=== PATIENT | male | born 1965 | race Caucasian/White ===

== ENCOUNTER → 2017-07-01 12:20 | Outpatient (CLI) | payer MEDICARE, MEDICAID, SELFPAY ==
[2017-07-01 13:40] VITALS: PULSE 72; PULSE 86; PULSE 87; PULSE 90; PULSE 91; PULSE 92; PULSE 93; O2SAT 86; O2SAT 87; O2SAT 88; O2SAT 89; O2SAT 91; O2SAT 92
--- NOTE | 2017-07-01 14:02 | CPS ---
PATIENT ARRIVED FOR 6MIN WALK TEST ON ROOM AIR. (HAS O2 SET UP AT HOME BY ROSA SMITH OUT OF [place]) SAYS HE HAS TROUBLE MANAGING TANKS AND WOULD LIKE SOMETHING SMALLER IF HE STILL QUALIFIES. HE ADMITS USE AT HOME. SPO2 ON RA PRIOR TO BEGINNING TEST WAS 88%. PLACED ON 1LPM TO BEGIN WALK. SUBSEQUENTLY INCREASED TO 4LPM TO MAINTAIN SPO2 >88% THROUGHOUT TESTING. HE WALKED WITH A CANE AND DID NOT REQUIRE ANY REST BREAKS. DYSPNEA RETURNED TO HIS BASELINE PRIOR TO DC.
--- NOTE | 2017-07-02 06:51 | WT_ITS ---
PSN 6 Minute Walk Test - 6 Minute Walk Test 6 Minute Walk Test: 6 Minute Walk Test PSN:6-Minute Walk Test Start: 07/01/17 13: 40 Freq: Status: Active Protocol: RESP.6MINW Document 07/01/17 13:40 [facility] (Rec: 07/01/17 14:08 [facility] [id number]) 6 Minute Walk Test Date Performed 07/01/17 Time Performed 12:30 Height 6 ft Weight: 93.44 kg Weight in Pounds 206.[address]: Mark Marlow Assistive device used: Cane Pre-test Oxygen Delivery Method Room Air Pulse Ox (%) 88 Pulse Rate (60-100 beats/min) 87 Dyspnea Radha Scale (0-10) 3 Reported Symptoms Increased Work of Breathing 1st minute Oxygen Flow Rate (L/min) (L/min) 1 Oxygen Delivery Method Nasal Cannula Pulse Ox (%) 91 Pulse Rate (60-100 beats/min) 86 Dyspnea Radha Scale (0-10) 3 Reported Symptoms Increased Work of Breathing 2nd minute Oxygen Flow Rate (L/min) (L/min) 1 Oxygen Delivery Method Nasal Cannula Pulse Ox (%) 87 Pulse Rate (60-100 beats/min) 90 Dyspnea Radha Scale (0-10) 4 Reported Symptoms Increased Work of Breathing 3rd minute Oxygen Flow Rate (L/min) (L/min) 2 Oxygen Delivery Method Nasal Cannula Pulse Ox (%) 88 Pulse Rate (60-100 beats/min) 91 Dyspnea Radha Scale (0-10) 4 Reported Symptoms Increased Work of Breathing 4th minute Oxygen Flow Rate (L/min) (L/min) 3 Pulse Ox (%) 89 Pulse Rate (60-100 beats/min) 92 Dyspnea Radha Scale (0-10) 4 Reported Symptoms Increased Work of Breathing 5th minute Oxygen Flow Rate (L/min) (L/min) 3 Oxygen Delivery Method Nasal Cannula Pulse Ox (%) 86 Pulse Rate (60-100 beats/min) 93 Dyspnea Radha Scale (0-10) 4 Reported Symptoms Increased Work of Breathing 6th minute Oxygen Flow Rate (L/min) (L/min) 4 Oxygen Delivery Method Nasal Cannula Pulse Ox (%) 89 Pulse Rate (60-100 beats/min) 93 Dyspnea Radha Scale (0-10) 4 Reported Symptoms Increased Work of Breathing Post-test Oxygen Delivery Method Room Air Pulse Ox (%) 92 Pulse Rate (60-100 beats/min) 72 Dyspnea Radha Scale (0-10) 3 Full Laps Walked 4 Partial Lap, Number of Tiles Walked 10 Total Distance Walked (ft) 246 07/01/17 14:02 Cardiopulmonary Services by Afia Morales PATIENT ARRIVED FOR 6MIN WALK TEST ON ROOM AIR. (HAS O2 SET UP AT HOME BY [facility]A SMITH OUT OF [place]) SAYS HE HAS TROUBLE MANAGING TANKS AND WOULD LIKE SOMETHING SMALLER IF HE STILL QUALIFIES. HE ADMITS USE AT HOME. SPO2 ON RA PRIOR TO BEGINNING TEST WAS 88%. PLACED ON 1LPM TO BEGIN WALK. SUBSEQUENTLY INCREASED TO 4LPM TO MAINTAIN SPO2 > 88% THROUGHOUT TESTING. HE WALKED WITH A CANE AND DID NOT REQUIRE ANY REST BREAKS. DYSPNEA RETURNED TO HIS BASELINE PRIOR TO DC. Initialized on 07/01/17 14:02 - END OF NOTE - Interpretation Interpretation: The patient was noted to be 88% on room air. The patient was then placed on 2 L nasal cannula with improvement. The patient then was ambulated for 6 minutes and required a total of 4 L/min to maintain appropriate saturations. Patient was able to travel only 246 feet over the course of 6 minutes despite taking no breaks. These findings are consistent with a respiratory limitation exercise tolerance. - Recommendations Recommendations: The patient should be on 2 L nasal cannula at rest, but increased to 4 L/min with any exertion.
== END ==
PROVIDERS: Family Provider Family Medicine; PCP Family Medicine; Visit Provider Internal Medicine Critical Care Medicine
DX: J96.11 Chronic respiratory failure with hypoxia (principal); J98.4 Other disorders of lung
CPT/HCPCS: 94618

== ENCOUNTER → 2017-07-03 12:49 | Outpatient (CLI) | payer MEDICARE, MEDICAID, SELFPAY ==
--- NOTE | 2017-07-04 07:04 | PFTCOMP ---
COMPLETE PULMONARY FUNCTION TEST INTERPRETATION Brief HPI: Patient is a 51 year old male, currently under the care of Dr. Marlow, who presents to [facility] for complete pulmonary function tests secondary to diagnosis of COPD. Respiratory therapist reports good effort and reproducible results. Interpretation: Forced expiration spirometry shows a very severe large airways obstructive ventilatory defect with an FEV1 of 20% predicted. There is no significant bronchodilator response by ATS criteria. Spirograms are of good quality and plateau slowly, indicating slowly emptying areas of the lungs. The respiratory flow volume loop shows decreased expiratory flow rates at all lung volumes consistent with airway obstruction. Lung volumes by body plethysmography show an elevated total lung capacity at 7.85 L, 116% predicted. FRC and RV are elevated out of proportion. Lung volume measurements are consistent with hyperinflation and air-trapping. Diffusion capacity by carbon monoxide is decreased at 27% predicted. The airway resistance is elevated. Compared to previous pulmonary function tests from 06/12/2016, there has been a significant improvement in lung volumes, FVC and DLCO. Impression: Irreversible very severe large airways obstructive ventilatory defect with a symmetric reduction diffusing capacity, resulting in air trapping with hyperinflation. Restriction has resolved compared to previous study.
== END ==
PROVIDERS: Family Provider Family Medicine; PCP Family Medicine; Visit Provider Internal Medicine Critical Care Medicine
DX: J96.11 Chronic respiratory failure with hypoxia (principal); J98.4 Other disorders of lung
CPT/HCPCS: 94060; 94726; 94729

== ENCOUNTER → 2018-10-27 | Outpatient (CLI) | payer MEDICARE, MEDICAID, SELFPAY ==
[2018-04-30 13:23] VITALS: BMI 27.8
--- NOTE | 2018-10-28 09:46 | PFT ---
INTRODUCTION: The patient is a 53-year-old male that presents for pulmonary function studies secondary to a diagnosis of COPD. Respiratory therapy reports good patient effort. Bronchodilators were used during testing. INTERPRETATION: Forced expiration spirometry demonstrates the presence of a very severe large airways obstructive ventilatory defect with an FEV1 of 17% of predicted. There was a significant response to aerosolized bronchodilators. Spirograms do not plateau indicating slow emptying of the lungs. Body plethysmography was performed and reveals a decrease TLC to 5.94 L, 82% of predicted, indicative of a mild restrictive ventilatory impairment. RV was elevated to 146% of predicted, indicative of underlying air trapping. Diffusing capacity by single breath CO is severely reduced at 30% of predicted. When compared to pulmonary function studies dated June 2017, there has been a 14% reduction in FEV1. IMPRESSION: Partially reversible very severe mixed ventilatory defect with associated air trapping and symmetric reduction in diffusing capacity. There has been worsening in the patient's FEV1 since 2018 as noted above.
== END | disposition home or self-care (01) ==
LOC: PSN 12:58
PROVIDERS: Family Provider Family Medicine; PCP Family Medicine; Referring Provider Nurse Practitioner Acute Care; Visit Provider Nurse Practitioner Acute Care
DX: J44.9 Chronic obstructive pulmonary disease, unspecified (principal)
CPT/HCPCS: 94060; 94726; 94729

== ENCOUNTER → 2018-10-28 | Outpatient (CLI) | payer MEDICARE, MEDICAID, SELFPAY ==
[2018-04-30 13:23] VITALS: BMI 27.8
[2018-10-28 12:35] VITALS: PULSE 64; PULSE 66; PULSE 74; PULSE 78; PULSE 79; PULSE 82; PULSE 86; PULSE 87; O2SAT 86; O2SAT 89; O2SAT 91; O2SAT 92; O2SAT 94; O2SAT 95; O2SAT 96; O2SAT 98
--- NOTE | 2018-10-28 12:35 | CPS ---
Per mill recorder pt wears 3l continuous flow at home. He arrived on 3L pulse dose and SPO2 was 91%. Pt placed on room air prior to start of walk test SPO2 was 94%. At 2 minute check pt with low SPO2 of 86%, pt placed on 3L continuous flow and recovered well to 93 %. Walk continued on 3L continuous flow.
--- NOTE | 2018-10-29 09:41 | PCM.PSN.6M ---
PSN 6 Minute Walk Test - 6 Minute Walk Test 6 Minute Walk Test: 6 Minute Walk Test PSN:6-Minute Walk Test Start: 10/28/18 13:06 Freq: Status: Active Protocol: RESP.6MINW Document 10/28/18 12:35 [facility] (Rec: 10/28/18 13:12 [facility] [id number]) 6 Minute Walk Test Date Performed 10/28/18 Time Performed 12:35 Height 6 ft Weight: 205 lb Weight in Pounds 205.[address]: Yenny Tom Assistive device used: Cane Pre-test Oxygen Delivery Method Room Air Pulse Ox (%) 94 Pulse Rate (60-100 beats/min) 64 Dyspnea Radha Scale (0-10) 2 Exertion Radha Scale (6-20) 0 1st minute Oxygen Delivery Method Room Air Pulse Ox (%) 89 Pulse Rate (60-100 beats/min) 78 Number of Rests Taken 0 2nd minute Oxygen Delivery Method Room Air Pulse Ox (%) 86 Pulse Rate (60-100 beats/min) 74 Number of Rests Taken 0 Reported Symptoms Increased Work of Breathing 3rd minute Oxygen Flow Rate (L/min) (L/min) 3 Oxygen Delivery Method Nasal Cannula Pulse Ox (%) 98 Pulse Rate (60-100 beats/min) 82 Number of Rests Taken 1 4th minute Oxygen Flow Rate (L/min) (L/min) 3 Oxygen Delivery Method Nasal Cannula Pulse Ox (%) 95 Pulse Rate (60-100 beats/min) 87 Number of Rests Taken 1 5th minute Oxygen Flow Rate (L/min) (L/min) 3 Oxygen Delivery Method Nasal Cannula Pulse Ox (%) 92 Pulse Rate (60-100 beats/min) 79 Number of Rests Taken 1 6th minute Oxygen Flow Rate (L/min) (L/min) 3 Oxygen Delivery Method Nasal Cannula Pulse Ox (%) 91 Pulse Rate (60-100 beats/min) 86 Number of Rests Taken 0 Post-test Oxygen Flow Rate (L/min) (L/min) 3 Oxygen Delivery Method Nasal Cannula Pulse Ox (%) 96 Pulse Rate (60-100 beats/min) 66 Dyspnea Radha Scale (0-10) 3 Exertion Radha Scale (6-20) 13 Full Laps Walked 6 Partial Lap, Number of Tiles Walked 30 Total Distance Walked (ft) 384 10/28/18 12:35 (created 10/28/18 13:10) Cardiopulmonary Services by Maria A Morales Per quill collector pt wears 3l continuous flow at home. He arrived on 3L pulse dose and SPO2 was 91%. Pt placed on room air prior to start of walk test SPO2 was 94%. At 2 minute check pt with low SPO2 of 86%, pt placed on 3L continuous flow and recovered well to 93 %. Walk continued on 3L continuous flow. Initialized on 10/28/18 13:10 - END OF NOTE - Interpretation Interpretation: The patient ambulated 384 feet over the course of 6 minutes beginning on room air with the use of a cane. Pretesting oxygen saturation was noted to be 94% on room air. With ambulation, the leobardo oxygen saturation was 86% at minute 2 of testing. 3 L/min of continuous flow supplemental oxygen was applied and the patient was able to complete the remainder of the test while maintaining oxygen saturations within the appropriate range. This testing indicated the presence of impaired walk distance along with significant exertional oxygen desaturation. - Recommendations Recommendations: 3 L/min of continuous flow supplemental oxygen should be utilized with exertion.
== END | disposition home or self-care (01) ==
LOC: PSN 12:22
PROVIDERS: Family Provider Family Medicine; PCP Family Medicine; Referring Provider Nurse Practitioner Acute Care; Visit Provider Nurse Practitioner Acute Care
DX: J44.9 Chronic obstructive pulmonary disease, unspecified (principal)
CPT/HCPCS: 94618

== ENCOUNTER → 2019-12-06 13:21 | Outpatient (CLI) | payer MEDICARE, MEDICAID, SELFPAY ==
[2018-11-03 14:06] VITALS: BMI 29.0
[2019-12-06 15:05] LABS: Absolute Lymphocyte Count 0.49 X10^3/uL (0.83-4.51); Absolute Neutrophil Count 3.3 X10^3/uL (2.0-7.7); Basophil# 0.03 X10^3/uL; Basophil% 0.6 % (0-1); Eosinophils% 6.5 % (0-5); Hematocrit 43.1 % (40-54); Lymphocyte # 0.49 X10^3/ul (4.0); Lymphocyte % 10.5 % (19-41); Mean Corp Hgb Conc 30.2 g/dL (32-36); Mean Corpuscular Hgb 30.8 pg (27.0-32.0); Mean Corpuscular Volume 102.1 fL (80-94); Mean Platelet Vol. 12.1 fl (6.2-12.0); Monocyte# 0.51 X10^3/uL; NRBC Flagged by Analyzer 0 % (0-5); POSITIVE DIFFERENTIAL YES; Platelet Count 107 K/mm3 (150-450); RBC Distribution Width CV 14.3 % (11.6-14.6); RBC Distribution Width SD 54.1 fl (35.1-43.9); Red Blood Count 4.22 M/mm3 (4.6-6.2); White Blood Count 4.7 K/mm3 (4.4-11.0)
[2019-12-06 15:23] LABS: ALB/GLOB Ratio 0.8 RATIO (0.9-2.4); AST(SGOT) 23 U/L (15-37); Alanine Aminotransfer ALT/SGPT 26 U/L (16-61); Albumin, Serum 3.4 g/dL (3.2-5.0); Alkaline Phosphatase 232 U/L (45-117); Anion Gap 5 (5-15); BUN 20 mg/dL (7-18); BUN/Creat Ratio 19.2 RATIO (10-20); Calcium,Total 8.3 mg/dL (8.5-10.1); Chloride 105 mmol/L (98-107); Cholesterol 224 mg/dL (200); Creatinine, Serum 1.04 mg/dL (0.70-1.30); EST Glomerular Filtration Rate 79 mL/min (>60); Est Glom Filt Rate - Afr Amer 95 mL/min (>60); Glucose 126 mg/dL (74-106); High Density Lipoprotein 54 mg/dL; Potassium 3.6 mmol/L (3.5-5.1); Protein, Total 7.4 g/dL (6.4-8.2); Sodium Level 141 mmol/L (136-145); Triglycerides 113 mg/dL; Very Low Density Lipoprotein 23 mg/dL (5-40)
[2019-12-06 15:53] LABS: Phenytoin (Dilantin) Level 14.2 mL (10.0-20.0)
[2019-12-06 16:04] LABS: Differential Indicated SCAN CRITERIA MET
[2019-12-06 16:48] LABS: Anisocytosis 1+; Macrocytosis 1+; Platelet Estimate ADEQUATE (ADEQ); Red Cell Morphology N CHROM NORMAL (NORM C&C)
== END ==
PROVIDERS: PCP Family Medicine; Visit Provider Family Medicine
DX: Z00.00 Encounter for general adult medical examination without abnormal findings (principal); I10 Essential (primary) hypertension; G40.909 Epilepsy, unspecified, not intractable, without status epilepticus; Z51.81 Encounter for therapeutic drug level monitoring; Z12.5 Encounter for screening for malignant neoplasm of prostate
CPT/HCPCS: 36415; 80053; 80061; 80185; 84153; 85025; G0103

== ENCOUNTER 2019-12-13 04:53 | Inpatient (IN) | payer MEDICARE, MEDICAID, SELFPAY ==
[2018-11-03 14:06] VITALS: BMI 29.0
[2019-12-13] VITALS (62 sets, daily range): BP systolic 73–156; BP diastolic 46–99; PULSE 81–194; RESP 14–26; TEMP 36.4–37.2; O2SAT 92–100; BMI 26.9
[2019-12-13] MEDS: Adenosine 6 MG/2 ML Syringe IV (03:59)
[2019-12-13] MEDS: Adenosine 6 MG/2 ML Syringe 12 MG IV (04:01)
[2019-12-13] MEDS: dilTIAZem 25 MG/5 ML Vial 20 MG IV BOLUS ×2 (04:26→05:22)
--- NOTE | 2019-12-13 04:48 | ECHOD_ITS ---
Reason For Study: CHF Procedure This was a 2D Doppler, Color Flow transthoracic echocardiogram. The study was technically difficult. Exam performed portable in ICU/CCU. Left Ventricle Normal LV size. Segmental dysfunction with preserved ejection fraction (see wall motion). The estimated ejection fraction is 65 %. Post operative septal motion. Diastolic function is indeterminate. Mid-inferoseptal : Hypokinetic. Mid-anteroseptal : Hypokinetic. Right Ventricle Normal RV size. Normal systolic function. Atria Normal left atrium. Normal right atrium. No doppler evidence for ASD. Mitral Valve There is no mitral annular calcification. Normal mitral valve. Trivial mitral valve insufficiency. Tricuspid Valve Normal tricuspid valve. Trivial tricuspid valve insufficiency. Right ventricular systolic pressure estimated to be 51 mmHg. Aortic Valve The aortic valve apparatus is not well visualized, however, based upon the 2D echocardiographic images obtained there appears to be a stable appearing mechanical aortic valve prosthesis. Mild aortic stenosis. Pulmonic Valve The pulmonic valve is not well visualized. Great Vessels Normal sized aortic root. Pericardium/Pleural No pericardial effusion. MMode/2D Measurements & Calculations LVIDd: 4.9 cm IVSd: 1.1 cm LVOT diam: 2.1 cm LVIDs: 4.4 cm LVPWd: 1.0 cm LVOT area: 3.3 cm2 RVDd: 3.1 cm FS: 10.9 % Ao root diam: 3.3 cm LAV(MOD-bp): 37.4 ml LA A4 area: 14.4 cm2 LAV(MOD-bp) Indexed: 17.6 ml/m2 LAV(MOD-sp2): 31.2 ml LAV(MOD-sp4): 33.7 ml LA dimension(2D): 3.9 cm Time Measurements MV dec time: 0.13 sec Doppler Measurements & Calculations MV E max emmanuel: 65.1 cm/sec Lat Peak E' Emmanuel: 9.7 cm/sec Med Peak E' Emmanuel: 5.4 cm/sec MV A max emmanuel: 52.2 cm/sec E/E' lat: 6.7 E/E' med: 12.0 MV E/A: 1.2 Ao V2 max: 216.6 cm/sec LV V1 max: 121.6 cm/sec SV(LVOT): 53.8 ml Ao max P.8 mmHg LV V1 max P.9 mmHg Ao V2 mean: 156.4 cm/sec LV V1 mean P.4 mmHg Ao mean P.7 mmHg LV V1 mean: 89.0 cm/sec Ao V2 VTI: 29.6 cm LV V1 VTI: 16.1 cm DAREN(I,D): 1.8 cm2 DAREN(V,D): 1.9 cm2 PA V2 max: 124.0 cm/sec TR max emmanuel: 299.3 cm/sec TR max P.1 mmHg Interpretation Summary The study was technically difficult. Segmental dysfunction with preserved ejection fraction (see wall motion). The estimated ejection fraction is 65 %. Post operative septal motion. Trivial mitral valve insufficiency. Trivial tricuspid valve insufficiency. The aortic valve apparatus is not well visualized, however, based upon the 2D echocardiographic images obtained there appears to be a stable appearing mechanical aortic valve prosthesis. Mild aortic stenosis. Right ventricular systolic pressure estimated to be 51 mmHg. Diastolic function is indeterminate. Comment: Based upon the 2D echocardiographic and color-flow Doppler evidence there is no obvious findings compatible with an ongoing ventricular septal defect. Ordering Physician: Kevin Ziegler Referring Physician: ANTIONETTE GERARD Performed By: Maryam Chand, BRY, RVT
--- NOTE | 2019-12-13 04:48 | RAD_ITS ---
STUDY: X-RAY CHEST REASON FOR EXAM: Male, 54 years old. ET and amp;amp;amp; OG TUBE PLACEMENTS -- LINE PLACEMENT TECHNIQUE: Single AP portable view of the chest. COMPARISON: 04/06/2016. 11/22/2015. FINDINGS: Right internal jugular catheter with catheter tip over the mid superior vena cava in good position. The enteric tube courses inferior to the left diaphragm, its tip is not included or visualized. There are superimposed monitor leads. Endotracheal tube tip approximately 0.5 cm superior to the vic. There is hyperinflation of the lungs consistent with chronic obstructive lung disease (COPD). Emphysematous changes, distortion of parenchyma, interstitial pattern, areas of hyperinflation in the right mid and lower lung parenchyma left perihilar parenchyma slightly progressed. There is no demonstrated pneumothorax. Sternal cerclage wires are present from a prior sternotomy. Normal mediastinum and joselito. Normal visualized pulmonary arteries. Normal visualized aortic arch and descending thoracic aorta. Normal visualized thoracic spine. Normal visualized ribs, clavicles, and shoulders. There is no demonstrated abnormality of the visualized soft tissue structures of the upper abdomen. RAD/Chest 1 View (Portable) IMPRESSION: emphysema, large bulla formation, chronic interstitial lung disease, scarring as above. Lines appear in good position. Electronically Signed: Pita Anderson MD at 5:50 EDT , Service support ,
--- NOTE | 2019-12-13 05:21 | EKG12_ITS ---
Test Reason : AM EKG Blood Pressure : / mmHG Vent. Rate : 085 BPM Atrial Rate : 085 BPM P-R Int : 144 ms QRS Dur : 154 ms QT Int : 522 ms P-R-T Axes : 000 -57 067 degrees QTc Int : 621 ms Normal sinus rhythm Right bundle branch block Left anterior fascicular block Bifascicular block Abnormal ECG When compared with ECG of 13-DEC-2019 08:05, MANUAL COMPARISON REQUIRED, DATA IS UNCONFIRMED Confirmed by ESTEPHANIE HEARD, RODRIGO ([id number]), editorial manager JAIDEN KANG ([id number]) on 12/14/2019 11:32:07 AM Referred By: Kevin Ziegler Confirmed By:JUAN HUMMEL MD
--- NOTE | 2019-12-13 05:25 | HP.PCM_ITS ---
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 (6) H/O aortic valve replacement Status: Resolved Comment: aortic root disease 2001 [facility] (7) S/P VSD repair Status: Resolved Comment: [facility] 1996 (8) DVT (deep venous thrombosis) Status: Chronic (9) avr and aortic homograft closure Status: Resolved Comment: 12/06/12 Anel Correia (10) H/O hernia repair Status: Resolved Comment: 09/22/2006 (11) Learning disability Status: Chronic (12) varicose veins Status: Acute (13) Hyperlipidemia Status: Chronic (14) HTN (hypertension) Status: Chronic (15) Aortic valve disease Status: Chronic (16) Ventricular septal defect Status: Chronic (17) Seizure disorder Status: Chronic (18) GERD (gastroesophageal reflux disease) Status: Chronic (19) COPD (chronic obstructive pulmonary disease) Status: Chronic (20) History of Coumadin therapy Status: Acute (21) Iatrogenic pneumothorax Status: Acute (22) Aortic valve replaced Status: Resolved (23) Mood disorder Status: Chronic (24) Obesity Status: Chronic (25) Alkaline phosphatase elevation Status: Acute (26) Cholelithiasis Status: Acute (27) Bilateral leg edema Status: Acute (28) Eczema of hand Status: Acute (29) Hypoxemic respiratory failure, chronic Status: Chronic (30) Hypersomnia Status: Acute (31) Shortness of breath Status: Acute (32) COPD exacerbation Status: Acute History of Present Illness Date of Admission: 12/13/19 Chief Complaint: shortness of breath The patient is a 54 year old M presented to the [facility] ED. he was noted to be hypoxic 88% on room air. They attempted nonrebreather and he did not seem to be improving and then tried BiPAP which she did not tolerate then ointment put him back onto the nonrebreather. They contacted [facility] for admission and stated that they were likely going to intubate him as he was not tolerating the nonrebreather. They decided to intubate but they spoke to me beforehand for transfer. I agreed to transfer but asked them to call me back afterwards. They tell me that they gave the patient etomidate and some lorazepam and were looking to transfer the patient. I was concerned about the patient not being sedated in route with just the bolus of etomidate and lorazepam and recommended stabilization with something such as propofol prior to transfer. I informed them that that would likely drop his blood pressure and that that would need to be stabilized prior to the patient being sent over. Did not receive a phone call back but once patient arrived to the floor a CODE BLUE was called. Concern was for ventricular tachycardia and patient did receive 100 J of defibrillation which did not have any effect. I ordered an EKG which looke d more like SVT though the EKG read sinus tachycardia. Patient then received adenosine for 6 and 12. Patient did have positive with a 12 mg but only to continue with the tachycardia. It was then ordered that the patient received diltiazem bolus and drip. Patient then received 20 mg of diltiazem bolus and then continuous infusion afterwards. [] Past Medical History Past Medical History (Chronic Problems): Chronic Problems (Last Reviewed 05/03/19 @ 13:41 by Merlyn Salazar) Stage 4 very severe COPD by GOLD classification (Chronic) FEV1 19% of predicted Chronic hypoxemic respiratory failure (Chronic) requires 3 LPM Hypersomnia (Chronic) Mixed obstructive and restrictive ventilatory defect (Chronic) DVT (deep venous thrombosis) (Chronic) Learning disability (Chronic) Hyperlipidemia (Chronic) HTN (hypertension) (Chronic) Aortic valve disease (Chronic) Ventricular septal defect (Chronic) Seizure disorder (Chronic) GERD (gastroesophageal reflux disease) (Chronic) COPD (chronic obstructive pulmonary disease) (Chronic) Mood disorder (Chronic) Obesity (Chronic) Hypoxemic respiratory failure, chronic (Chronic) Medical History: Medical History (Last Reviewed 12/13/19 @ 05:[address] Kevin Ziegler, DO) Chronic hypoxemic respiratory failure (Chronic) J96.11 requires 3 LPM Hypersomnia (Chronic) G47.10 Mixed obstructive and restrictive ventilatory defect (Chronic) DVT (deep venous thrombosis) (Chronic) I82.409 Learning disability (Chronic) F81.9 varicose veins (Acute) Hyperlipidemia (Chronic) E78.5 HTN (hypertension) (Chronic) I10 Aortic valve disease (Chronic) I35.9 Ventricular septal defect (Chronic) Q21.0 Seizure disorder (Chronic) G40.909 GERD (gastroesophageal reflux disease) (Chronic) K21.9 COPD (chronic obstructive pulmonary disease) (Chronic) J44.9 History of Coumadin therapy (Acute) Z92.29 Iatrogenic pneumothorax (Acute) J95.811 Mood disorder (Chronic) F39 Obesity (Chronic) E66.9 Alkaline phosphatase elevation (Acute) R74.8 Cholelithiasis (Acute) K80.20 Bilateral leg edema (Acute) R60.0 Eczema of hand (Acute) L30.9 Hypoxemic respiratory failure, chronic (Chronic) J96.11 Hypersomnia (Acute) G47.10 Shortness of breath (Acute) R06.02 Allergies No Known Allergies Allergy (Verified 11/03/18 13:19) Home Medications: Ambulatory Orders Medication Instructions Recorded Albuterol Aerosols [Ventolin 2.5 mg INHALATION Q4H PRN PRN 04/05/16 Aerosols] Albuterol Inhaler [Ventolin Hfa] 2 puff INHALATION Q4H PRN PRN 04/05/16 Oxygen, Home [Home Oxygen] 2 - 4 lpm NASAL DAILY 04/05/16 Phenytoin Na [Dilantin] 100 mg PO BID 04/05/16 Phenytoin Sodium Extended 200 mg PO QHS 04/06/16 [Dilantin] Potassium Chloride [Klor-Con M20] 20 meq PO BID 04/06/16 Furosemide [Lasix] 40 mg PO BIDLX #60 tab 04/07/16 Ipratropium/Albuterol Sulfate 3 ml INHALATION Q6H.RT #120 04/07/16 [Duoneb] ampul.neb Nystatin Powder [Mycostatin Powder] 1 applic TOPICAL BID #30 gm 04/07/16 Warfarin [Coumadin] 4 mg PO DAILY@1700 tab 04/07/16 aspirin 81 mg tablet,delayed 81 mg PO QDAY 03/17/17 release metoprolol tartrate 25 mg tablet 37.5 mg PO QDAY tab 03/17/17 multivitamin 1 tab PO QDAY 03/17/17 fluticasone fur. 100 mcg-umeclid 1 inh INHALATION DAILY #1 ea 11/15/19 62.5 mcg-vilant 25 mcg inhalat.powder Surgical History: Surgical History (Last Reviewed 12/13/19 @ 05:[address] Kevin Ziegler DO) H/O aortic valve replacement (Resolved) Z95.2 [facility] (Resolved) Z98.890, Z87.74 [facility] 1996 avr and aortic homograft closure (Resolved) 12/06/12 Anel Correia H/O hernia repair (Resolved) Z98.890, Z87.19 09/22/2006 Aortic valve replaced (Resolved) Z95.2 Surgical History: - - Mitral valve replacement ?2 Psychiatric History: No pertinent psych hx Smoking Status: Former smoker - *Family History Maternal Family History: Family History (Last Reviewed 12/13/19 @ 05:[address] Kevin Ziegler DO) Father Lung cancer Osteoarthritis Mother Diabetes Thyroid disorder High cholesterol Breast cancer Grandmother Heart disease CVA (cerebral vascular accident) History Items: Unknown Paternal Family History: Family History (Last Reviewed 12/13/19 @ 05:[address] Kevin Ziegler DO) Father Lung cancer Osteoarthritis Mother Diabetes Thyroid disorder High cholesterol Breast cancer Grandmother Heart disease CVA (cerebral vascular accident) History Items: Unknown Review of Systems Unable to obtain accurate/complete ROS d/t: Intubated and sedated VTE Information - Inpt Only VTE Present on Admission: No VTE Mechan Device Prophylaxis: None VTE Pharm Prophylaxis ordered?: No Reason prophylaxis not ordered:: Treatment Not Indicated - Physical Exam Vitals/I&O's: Vital Signs Pulse Resp Pulse Ox 162 H 19 H 100 12/13/19 05:00 12/13/19 05:00 12/13/19 05:00 Weight: 89.9 kg Body Mass Index (BMI) 26.9 General: - - Intubated and sedated. Disheveled and unkempt HEENT: Atraumatic, Normocephalic Neck: No Nodes, Thyroid Normal Size and Texture Lungs: Diminished, - - Hoarse breath sounds bilaterally Cardiovascular: Tachycardic, - - 3 out of 6 systolic murmur loudest at the apex Abdomen: Bowel Sounds Present, Soft, Non Tender, Non-Distended Extremities: No Calf Tenderness Skin: No rashes, No breakdown Musculoskeletal: No Tenderness to Palpation of Joints or Extremities, No Muscle Wasting Neurological: Deep Tendon Reflexes 2+/4 and Symmetrical, - - No clonus Chest x-ray personally reviewed and shows more chronic changes has not scaling change from April 2016 EKG reviewed and showed SVT Labs: BMP: Sodium 139, potassium 4.5, creatinine 0.99. CBC: White count 7.1, hemoglobin 15, platelets 129. BNP was 1491. Troponin was 0.033. Current Medications Acetaminophen (Acetaminophen 650 Mg Suppository) 650 mg RECTAL Q4H PRN PRN PRN Reason: Pain Score 1-10/Temp > 100.7 F Albuterol Sulfate (Albuterol 2.5 Mg/3 Ml Vial.Neb.) 2.5 mg INHALATION Q2H PRN PRN PRN Reason: SOB/Wheezing Albuterol/Ipratropium (Ipratropium/Albuterol Sulfate 3 Ml Ampul.Neb) 3 ml INHA LATION Q4H.RT ERICKA Chlorhexidine Gluconate (Chlorhexidine 15 Ml) 15 ml PO BID ERICKA Enoxaparin Sodium (Enoxaparin 40 Mg/0.4 Ml Syringe) 40 mg SC DAILY ERICKA Guaifenesin (Guaifenesin 1,200 Mg Tablet) 1,200 mg PO BID ERICKA Diltiazem HCl 125 mg/ Dextrose 125 mls @ 5 mls/hr IV .Q25H ERICKA; Protocol Last Admin: 12/13/19 04:28 Dose: 5 mg/hr, 5 mls/hr Documented by: Sodium Chloride () 250 mls @ 15 mls/hr IV .[id number] PRN PRN Reason: Saline Flush Sodium Chloride () 250 mls @ 15 mls/hr IV .[id number] PRN PRN Reason: Additional IVPB Infusion Vancomycin IV Pharmacy to Dose (1 ea/ Sodium Chloride) 500 mls @ 250 mls/hr IV X1 PRN; Protocol PRN Reason: Rx to Dose Piperacillin Sod/Tazobactam (Sod 3.375 gm/ Sodium Chloride) 50 mls @ 12.5 mls/hr IV Q8 ERICKA Stop: 12/20/19 06:01 Vancomycin HCl 1,250 mg/ (Sodium Chloride) 275 mls @ 167 mls/hr IV X1 ONE Stop: 12/13/19 07:08 Methylprednisolone (Methylprednisolone 40 Mg/Ml Vial) 40 mg IV Q8 ERICKA Sodium Chloride (0.9% Saline Lock 10 Ml Syringe) 10 - 40 ml IV UD PRN PRN Reason: SALINE FLUSH Assessment/Plan All Active Problems (Last Reviewed 05/03/19 @ 13:41 by Merlyn Salazar) Acute respiratory failure with hypoxia (Acute) COPD exacerbation (Acute) H/O aortic valve replacement (Resolved) S/P VSD repair (Resolved) avr and aortic homograft closure (Resolved) H/O hernia repair (Resolved) varicose veins (Acute) History of Coumadin therapy (Acute) Iatrogenic pneumothorax (Acute) Aortic valve replaced (Resolved) Alkaline phosphatase elevation (Acute) Cholelithiasis (Acute) Bilateral leg edema (Acute) Eczema of hand (Acute) Hypersomnia (Acute) Shortness of breath (Acute) 1. Acute hypoxic respiratory failure: Failed nonrebreather and BiPAP at the outside hospital and was subsequently intubated. Critical care medicine to facilitate ventilator management. Patient was checked for COVID at the outside hospital but we would not know the results until later this morning. Unknown exposure history. Propofol and fentanyl to help with sedation. Patient did have an elevated BNP though clinically does not appear to be in CHF. Will check an echocardiogram. Patient did have an elevated d-dimer, however it is normal for his age. 2. Acute exacerbation of COPD: Patient at baseline has stage IV COPD by Gold Classification. Patient will be on bronchodilators as well as methylprednisolone. I speculated the patient's chest x-ray findings are more chronic rather than acute but will put the patient on broad-spectrum antibiotics for now. Follow-up on cultures and if that comes back negative then could either de-escalate or discontinue antibiotics. 3. Hypotension: Likely iatrogenic from the propofol as was not present beforehand.. Patient on levo fed. Wean as tolerated. 4. Tachycardia: Is to be SVT. Overall improved. Did have to re-bolused the patient with diltiazem. Continue with diltiazem drip. This developed after intubation and starting the norepinephrine. Hopefully as I can be weaned down the tachycardia will be improved. If persists may consider consult cardiology. 5. Mechanical mitral valve: Patient is on warfarin at home. Check an INR start the patient on therapeutic enoxaparin. 6. Seizure disorder: Continue with phenytoin. 7. VTE prophylaxis: Not indicated as patient is already anticoagulated 8. Advanced care planning: Unable to address at this time given patient's current status. Inpatient E&M: 71021 Init Hosp L3
[2019-12-13 05:39] LABS: Absolute Lymphocyte Count 0.57 X10^3/uL (0.83-4.51); Absolute Neutrophil Count 14.5 X10^3/uL (2.0-7.7); Basophil# 0.07 X10^3/uL; Basophil% 0.4 % (0-1); Eosinophil# 0.09 X10^3/uL; Eosinophils% 0.5 % (0-5); Hematocrit 43.8 % (40-54); Hemoglobin 13.4 g/dL (13.0-16.5); Lymphocyte # 0.57 X10^3/ul (4.0); Lymphocyte % 3.2 % (19-41); Mean Corp Hgb Conc 30.6 g/dL (32-36); Mean Corpuscular Hgb 31.3 pg (27.0-32.0); Mean Corpuscular Volume 102.3 fL (80-94); Mean Platelet Vol. 11.2 fl (6.2-12.0); Monocyte# 2.64 X10^3/uL; Monocyte% 14.7 % (0-10); NRBC Flagged by Analyzer 0 % (0-5); Neutrophil # 14.48 X10^3/uL (2.7-7.7); Neutrophil % 80.3 % (47-70); POSITIVE DIFFERENTIAL YES; Platelet Count 201 K/mm3 (150-450); RBC Distribution Width CV 14.2 % (11.6-14.6); RBC Distribution Width SD 53.3 fl (35.1-43.9); Red Blood Count 4.28 M/mm3 (4.6-6.2)
--- NOTE | 2019-12-13 05:44 | PCM.OP.PRO ---
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 (6) H/O aortic valve replacement Status: Resolved Comment: aortic root disease 2001 [facility] (7) S/P VSD repair Status: Resolved Comment: [facility] 1996 (8) DVT (deep venous thrombosis) Status: Chronic (9) avr and aortic homograft closure Status: Resolved Comment: 12/06/12 Anel Correia (10) H/O hernia repair Status: Resolved Comment: 09/22/2006 (11) Learning disability Status: Chronic (12) varicose veins Status: Acute (13) Hyperlipidemia Status: Chronic (14) HTN (hypertension) Status: Chronic (15) Aortic valve disease Status: Chronic (16) Ventricular septal defect Status: Chronic (17) Seizure disorder Status: Chronic (18) GERD (gastroesophageal reflux disease) Status: Chronic (19) COPD (chronic obstructive pulmonary disease) Status: Chronic (20) History of Coumadin therapy Status: Acute (21) Iatrogenic pneumothorax Status: Acute (22) Aortic valve replaced Status: Resolved (23) Mood disorder Status: Chronic (24) Obesity Status: Chronic (25) Alkaline phosphatase elevation Status: Acute (26) Cholelithiasis Status: Acute (27) Bilateral leg edema Status: Acute (28) Eczema of hand Status: Acute (29) Hypoxemic respiratory failure, chronic Status: Chronic (30) Hypersomnia Status: Acute (31) Shortness of breath Status: Acute (32) COPD exacerbation Status: Acute Procedure Report Date of Procedure: 12/13/19 Procedure: Right internal jugular triple-lumen catheter Indication was for IV access and medication administration. Procedure was emergent. Description: Area was prepped and draped in a sterile fashion. Using ultrasound guidance, the right internal jugular vein was identified. Using the modified Seldinger technique, a triple catheter was advanced over guidewire and sutured in place. Patient tolerated the procedure well Findings: All ports magan and flushed easily. Chest x-ray: Triple-lumen catheter above the level of the atrium. No evidence of pneumothorax. Procedures: [id number] Insert Non-tunnel CV Cath
[2019-12-13 05:49] LABS: International Normalized Ratio 1.4; Prothrombin Time (Protime)PT. 16.4 SECONDS (11.7-14.9)
[2019-12-13] MEDS: Propofol 10MG/Ml 1,000 MG/100 ML Bottle 16.2 MG CONT INF (06:00)
[2019-12-13 06:02] LABS: Lactic Acid 2.6 mmol/L (0.4-1.9)
--- NOTE | 2019-12-13 06:07 | NURSING ---
pt arrived to ICU at 0335, transferred to ICU bed, HR was in low 100's then up to 210, Toney called to bedside, synchronized shock at 100J at 0355 for Vtach EKG obtained, shows SVT 0359 adenosine 6mg IV given 040 adenosine 12mg IV given 041 NS 500cc bolus given 041 respiratory at bedside to attempt ABG 041 propofol 10mg IV bolus given per Toney order for line placement 0430 Toney placing central line 444 OG placed Propofol and levophed from [facility] [place] remain hanging with verbal order from Dr. Ziegler to continue. Propofol @ 20 mcg/kg/min upon arrival, titrated to 25 mcg/kg/min at 0412 per MD order for RASS +1, titrated to 30 mcg/kg/min at 0430 for RASS +1 Levophed @ 10 mcg/min upon arrival
[2019-12-13 06:11] LABS: CPK Total, Creatine Kinase 119 U/L (39-308); Triglycerides 171 mg/dL
[2019-12-13 06:17] LABS: ALB/GLOB Ratio 0.9 RATIO (0.9-2.4); AST(SGOT) 71 U/L (15-37); Alanine Aminotransfer ALT/SGPT 61 U/L (16-61); Albumin, Serum 3.2 g/dL (3.2-5.0); Alkaline Phosphatase 201 U/L (45-117); Anion Gap 7 (5-15); BUN 26 mg/dL (7-18); BUN/Creat Ratio 16.9 RATIO (10-20); Calcium,Total 7.9 mg/dL (8.5-10.1); Chloride 105 mmol/L (98-107); Creatinine, Serum 1.54 mg/dL (0.70-1.30); EST Glomerular Filtration Rate 50 mL/min (>60); Est Glom Filt Rate - Afr Amer 61 mL/min (>60); Estimated Creatinine Clearance 59.49 ml/min; Globulin 3.7 g/dL (2.2-4.2); Glucose 127 mg/dL (74-106); Potassium 3.9 mmol/L (3.5-5.1); Protein, Total 6.9 g/dL (6.4-8.2); Sodium Level 141 mmol/L (136-145); Thyroid Stim Hormone (TSH) 2.73 uIU/mL (0.358-3.74)
[2019-12-13] MEDS: 0.9% Saline Lock 10 ML Syringe IV ×3 (06:17→08:46)
[2019-12-13] MEDS: Enoxaparin 100 MG/ML Syringe 90 MG SC ×2 (06:35→17:03)
--- NOTE | 2019-12-13 06:59 | CON.PCM_ITS ---
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 1996 (8) avr and aortic homograft closure Status: Resolved Comment: 12/06/12 Anel Correia (9) H/O hernia repair Status: Resolved Comment: 09/22/2006 (10) Hyperlipidemia Status: Chronic (11) HTN (hypertension) Status: Chronic (12) Seizure disorder Status: Chronic (13) GERD (gastroesophageal reflux disease) Status: Chronic (14) History of Coumadin therapy Status: Acute (15) Mood disorder Status: Chronic Reason for Consult Date of Consultation: 12/13/19 Reason for Consultation: Respiratory failure History of Present Illness: The patient is a 54 year old M with past medical history listed below and seen by Dr. Marlow in our office, who presented to [facility] on 12/13/2019 as a direct transfer from [place] emergency department. Patient r eportedly lives in an assisted living and was checked on. Patient was found unresponsive and too weak to stand. EMS was called. Patient reportedly was found soiled and relatively unresponsive. Patient was noted to be 88% on baseline 3 L nasal cannula. At the outside emergency department, patient reportedly was attempted on nonrebreather without improvement. Patient was tried on BiPAP and was unable to tolerate this. Patient was then intubated using lorazepam and etomidate. Further details of outside facility are unclear at this time. Patient reportedly was transferred to [facility] at that time. On arrival to the intensive care unit, a CODE BLUE was called. Patient was noted to have heart rates in excess of 180 bpm. Patient received adenosine and an attempted cardioversion that were not successful. Reportedly, patient showed sinus tachycardia on telemetry. Patient has since been started on Levophed, fentanyl and propofol. Patient did have a central line placed by the hospitalist. Patient is currently unresponsive and unable to provide any further details. Minimal documentation from outside facilities are available at this time. Patient reportedly did have COVID testing sent at the outside facility. Reviewed electronic documentation does show patient has advanced COPD with an FEV1 of 19% of predicted and is on 3 L nasal cannula at baseline. Patient does have a history of aortic valve repair and reportedly is supposed to be on Coumadin therapy. Patient also takes Lasix on a chronic basis in addition to triple therapy for COPD. Unable to obtain a review of systems secondary to patient's intubated and sedated state. Past Medical History Past Medical History (Chronic Problems): Chronic Problems (Last Reviewed 12/13/19 @ 05:[address] Kevin Ziegler, ) Stage 4 very severe COPD by GOLD classification (Chronic) FEV1 19% of predicted Chronic hypoxemic respiratory failure (Chronic) requires 3 LPM Hypersomnia (Chronic) Mixed obstructive and restrictive ventilatory defect (Chronic) DVT (deep venous thrombosis) (Chronic) Learning disability (Chronic) Hyperlipidemia (Chronic) HTN (hypertension) (Chronic) Aortic valve disease (Chronic) Ventricular septal defect (Chronic) Seizure disorder (Chronic) GERD (gastroesophageal reflux disease) (Chronic) COPD (chronic obstructive pulmonary disease) (Chronic) Mood disorder (Chronic) Obesity (Chronic) Hypoxemic respiratory failure, chronic (Chronic) Medical History: Medical History (Last Reviewed 12/13/19 @ 05:[address] Kevin Ziegler, ) Chronic hypoxemic respiratory failure (Chronic) J96.11 requires 3 LPM Hypersomnia (Chronic) G47.10 Mixed obstructive and restrictive ventilatory defect (Chronic) DVT (deep venous thrombosis) (Chronic) I82.409 Learning disability (Chronic) F81.9 varicose veins (Acute) Hyperlipidemia (Chronic) E78.5 HTN (hypertension) (Chronic) I10 Aortic valve disease (Chronic) I35.9 Ventricular septal defect (Chronic) Q21.0 Seizure disorder (Chronic) G40.909 GERD (gastroesophageal reflux disease) (Chronic) K21.9 COPD (chronic obstructive pulmonary disease) (Chronic) J44.9 History of Coumadin therapy (Acute) Z92.29 Iatrogenic pneumothorax (Acute) J95.811 Mood disorder (Chronic) F39 Obesity (Chronic) E66.9 Alkaline phosphatase elevation (Acute) R74.8 Cholelithiasis (Acute) K80.20 Bilateral leg edema (Acute) R60.0 Eczema of hand (Acute) L30.9 Hypoxemic respiratory failure, chronic (Chronic) J96.11 Hypersomnia (Acute) G47.10 Shortness of breath (Acute) R06.02 Allergies No Known Allergies Allergy (Verified 11/03/18 13:19) Home Medications: Ambulatory Orders Medication Instructions Recorded Albuterol Aerosols [Ventolin 2.5 mg INHALATION Q4H PRN PRN 04/05/16 Aerosols] Albuterol Inhaler [Ventolin Hfa] 2 puff INHALATION Q4H PRN PRN 04/05/16 Oxygen, Home [Home Oxygen] 2 - 4 lpm NASAL DAILY 04/05/16 Phenytoin Na [Dilantin] 100 mg PO BID 04/05/16 Phenytoin Sodium Extended 200 mg PO QHS 04/06/16 [Dilantin] Potassium Chloride [Klor-Con M20] 20 meq PO BID 04/06/16 Furosemide [Lasix] 40 mg PO BIDLX #60 tab 04/07/16 Ipratropium/Albuterol Sulfate 3 ml INHALATION Q6H.RT #120 04/07/16 [Duoneb] ampul.neb Nystatin Powder [Mycostatin Powder] 1 applic TOPICAL BID #30 gm 04/07/16 Warfarin [Coumadin] 4 mg PO DAILY@1700 tab 04/07/16 aspirin 81 mg tablet,delayed 81 mg PO QDAY 03/17/17 release metoprolol tartrate 25 mg tablet 37.5 mg PO QDAY tab 03/17/17 multivitamin 1 tab PO QDAY 03/17/17 fluticasone fur. 100 mcg-umeclid 1 inh INHALATION DAILY #1 ea 11/15/19 62.5 mcg-vilant 25 mcg inhalat.powder Surgical History: Surgical History (Last Reviewed 12/13/19 @ 05:[address] Kevin Ziegler, DO) H/O aortic valve replacement (Resolved) Z95.2 aortic root disease 2001 [facility] S/P VSD repair (Resolved) Z98.890, Z87.74 [facility] 1996 avr and aortic homograft closure (Resolved) 12/06/12 An[facility] Correia H/O hernia repair (Resolved) Z98.890, Z87.19 09/22/2006 Aortic valve replaced (Resolved) Z95.2 Surgical History: - - Mitral valve replacement ?2 Psychiatric History: No pertinent psych hx Smoking Status: Former smoker - *Family History Maternal Family History: Family History (Last Reviewed 12/13/19 @ 05:[address] Kevin Ziegler DO) Father Lung cancer Osteoarthritis Mother Diabetes Thyroid disorder High cholesterol Breast cancer Grandmother Heart disease CVA (cerebral vascular accident) History Items: Unknown Paternal Family History: Family History (Last Reviewed 12/13/19 @ 05:[address] Kevin Ziegler DO) Father Lung cancer Osteoarthritis Mother Diabetes Thyroid disorder High cholesterol Breast cancer Grandmother Heart disease CVA (cerebral vascular accident) History Items: Unknown Review of Systems Unable to obtain accurate/complete ROS d/t: Intubated and sedated Patient Problems: Active and Suspected Problems (Last Reviewed 12/13/19 @ 05:[address] Kevin Ziegler DO) Acute respiratory failure with hypoxia (Acute) COPD exacerbation (Acute) varicose veins (Acute) History of Coumadin therapy (Acute) Iatrogenic pneumothorax (Acute) Alkaline phosphatase elevation (Acute) Cholelithiasis (Acute) Bilateral leg edema (Acute) Eczema of hand (Acute) Hypersomnia (Acute) Shortness of breath (Acute) Objective: Chest x-ray was personally reviewed. This does show cephalization with lines in appropriate positions. - Physical Exam Vitals/I&O's: Vital Signs Pulse Resp Pulse Ox 165 H 21 H 95 12/13/19 06:00 12/13/19 06:00 12/13/19 06:00 Oxygen Delivery Method Mechanical Ventilator Weight: 89.9 kg Body Mass Index (BMI) 26.9 Intake and Output for Last 24 Hours 12/11/19 12/12/19 12/13/19 23:59 23:59 23:59 Intake Total 15.13 / 15.13 Output Total 350 / 350 Balance -334.87 / -334.87 General: - - Intubated and sedated. Good vent synchrony. HEENT: Atraumatic, PERRLA, EOMI, Normocephalic, - - No scleral injection or icterus Oral: No Gingival or Mucosal Lesions/ Ulcerations, Dry Mucosa Neck: Supple, No JVD, No Nodes, Trachea Midline Lungs: No rhonchi, No wheeze, No rales, Diminished Cardiovascular: Normal S1, Normal S2, No murmurs, No rub noted, No Gallop, Tachycardic, - - Hyperdynamic precordium Abdomen: Bowel Sounds Present, Soft, Non Tender, Non-Distended Extremities: No cyanosis, No edema, Capillary Refill Less than 3 Seconds, Clubbing Skin: No rashes, No breakdown Musculoskeletal: No Tenderness to Palpation of Joints or Extremities Lymphatic: No Cervical, Supraclavicular, or Inguinal Adenopathy Neurological: - - Nonfocal neurologic exam. Sensation intact bilaterally. Positive gag and cough reflexes. Psych/Mental Status: Flat Affect Microbiology Past 72 Hours 12/13/19 05:10 Urine Catheter - Cole Legionella Antigen - Final 12/13/19 05:10 Urine Catheter - Cole Streptococcus pneumoniae Antigen (M - Final Laboratory Results 12/13/19 05:30: Lactic Acid 2.6 H* 12/13/19 05:30: Sodium 141, Potassium 3.9, Chloride 105, Carbon Dioxide 29.0, Anion Gap 7, BUN 26 H, Creatinine 1.54 H, Estim Creat Clear Calc 59.49, Est GFR (MDRD) Af Amer 61, Est GFR (MDRD) Non-Af 50 L, BUN/Creatinine Ratio 16.9, Glucose 127 H, Calcium 7.9 L, Total Bilirubin 1.10 H, AST 71 H, ALT 61, Alkaline Phosphatase 201 H, Troponin I 5.560 H*, Total Protein 6.9, Albumin 3.2, Globulin 3.7, Albumin/Globulin Ratio 0.9, TSH 2.73 12/13/19 05:30: WBC 18.0 H, RBC 4.28 L, Hgb 13.4, Hct 43.8, MCV 102.3 H, MCH 31.3, MCHC 30.6 L, RDW Std Deviation 53.3 H, RDW Coeff of Joseluis 14.2, Plt Count 201, MPV 11.2, Immature Gran % (Auto) 0.900, Neut % (Auto) 80.3 H, Lymph % (Auto) 3.2 L, [place]ner % (Auto) 14.7 H, Eos % (Auto) 0.5, Baso % (Auto) 0.4, Absolute Neuts (auto) 14.5 H, Absolute Lymphs (auto) 0.57 L, Nucleated RBC % 0, Diff Path Review June12/13/19 05:30: PT 16.4 H, INR 1.4 12/13/19 05:30: Total Creatine Kinase 119, Triglycerides 171 Current Medications Acetaminophen (Acetaminophen 650 Mg Suppository) 650 mg RECTAL Q4H PRN PRN PRN Reason: Pain Score 1-10/Temp > 100.7 F Albuterol Sulfate (Albuterol 2.5 Mg/3 Ml Vial.Neb.) 2.5 mg INHALATION Q2H PRN PRN PRN Reason: SOB/Wheezing Albuterol/Ipratropium (Ipratropium/Albuterol Sulfate 3 Ml Ampul.Neb) 3 ml INHALATION Q4H.RT ERICKA Chlorhexidine Gluconate (Chlorhexidine 15 Ml) 15 ml PO BID ERICKA Enoxaparin Sodium (Enoxaparin 100 Mg/Ml Syringe) 90 mg SC Q12@0600,1800 [facility] Last Admin: 12/13/19 06:35 Dose: 90 mg Documented by: Guaifenesin (Guaifenesin 1,200 Mg Tablet) 1,200 mg PO BID ERICKA Diltiazem HCl 125 mg/ Dextrose 125 mls @ 5 mls/hr IV .Q25H ERICKA; Protocol Last Admin: 12/13/19 04:28 Dose: 5 mg/hr, 5 mls/hr Documented by: Sodium Chloride () 250 mls @ 15 mls/hr IV .[id number] PRN PRN Reason: Saline Flush Last Admin: 12/13/19 05:37 Dose: 15 mls/hr Documented by: Sodium Chloride () 250 mls @ 15 mls/hr IV .[id number] PRN PRN Reason: Additional IVPB Infusion Vancomycin IV Pharmacy to Dose (1 ea/ Sodium Chloride) 500 mls @ 250 mls/hr IV X1 PRN; Protocol PRN Reason: Rx to Dose Piperacillin Sod/Tazobactam (Sod 3.375 gm/ Sodium Chloride) 50 mls @ 12.5 mls/hr IV Q8 [facility] Stop: 12/20/19 06:01 Vancomycin HCl 1,250 mg/ (Sodium Chloride) 275 mls @ 167 mls/hr IV X1 ONE Stop: 12/13/19 07:08 Last Admin: 12/13/19 05:37 Dose: 167 mls/hr Documented by: Propofol (Diprivan) 1,000 mg in 100 mls @ 5.394 mls/hr CONT INF .Q12H ERICKA; Protocol Last Admin: 12/13/19 06:00 Dose: 30 mcg/kg/min, 16.2 mls/hr Documented by: Fentanyl Citrate 1,000 mcg/ (Sodium Chloride) 100 mls @ 5 mls/hr CONT INF .Q20H ERICKA; Protocol Last Titration: 12/13/19 05:45 Dose: 100 mcg/hr, 10 mls/hr Documented by: Norepinephrine Bitartrate 8 mg (/ Sodium Chloride) 250 mls @ 9.375 mls/hr CONT INF .[id number] ERICKA; Protocol Last Admin: 12/13/19 06:00 Dose: 15 mcg/min, 28.1 mls/hr Documented by: Vasopressin 20 units/ Sodium (Chloride) 25 mls @ 3 mls/hr IV .Q8H20M ERICKA Last Admin: 12/13/19 06:35 Dose: 0.04 units/min, 3 mls/hr Documented by: Methylprednisolone (Methylprednisolone 40 Mg/Ml Vial) 40 mg IV Q8 ERICKA Last Admin: 12/13/19 06:18 Dose: 40 mg Documented by: Phenytoin Sodium (Phenytoin Na 100 Mg/2 Ml Vial) 100 mg IV Q12 ERICKA Sodium Chloride (0.9% Saline Lock 10 Ml Syringe) 10 - 40 ml IV UD PRN PRN Reason: SALINE FLUSH Last Admin: 12/13/19 06:18 Dose: 40 ml Documented by: Assessment/Plan Active and Suspected Problems (Last Reviewed 12/13/19 @ 05:[address] Kevin moeller, DO) Acute respiratory failure with hypoxia (Acute) COPD exacerbation (Acute) varicose veins (Acute) History of Coumadin therapy (Acute) Iatrogenic pneumothorax (Acute) Alkaline phosphatase elevation (Acute) Cholelithiasis (Acute) Bilateral leg edema (Acute) Eczema of hand (Acute) Hypersomnia (Acute) Shortness of breath (Acute) RECOMMENDATIONS: 1. Obtain ABG on current vent settings 2. Consult cardiology for recommendations 3. Initiate empiric antibiotics, bronchodilators and steroids pending infectious work-up 4. Initiate systemic anticoagulation. Urgent echocardiogram 5. Possible need for heart catheterization 6. Wean oxygen as tolerated. 7. Continue advanced respiratory isolation pending COVID testing IMPRESSIONS: 1. Acute on chronic hypoxic respiratory failure secondary to possible COPD exacerbation Unclear etiology at this time. Patient does have some cephalization noted on chest x-ray, but no obvious infiltrate. Patient does have advanced emphysematous changes, so infiltrate may be slow to develop. Will treat empirically with antibiotics, steroids and bronchodilators for now. Patient has a COVID test pending at an outside facility. 2. SVT/history of valve replacement with lack of anticoagulation Patient receives most of his care at an outside facility. Patient had some adenosine earlier today and was reportedly in sinus tachycardia. Patient remains on a Cardizem drip with poor control. Patient's troponin is elevated, but it is unclear if this is secondary to coronary artery disease in the setting of SVT. Rate is too rapid to evaluate for ST elevations on EKG. Patient's INR was 1.4, so will initiate therapeutic Lovenox. Patient may have an element of heart failure secondary to failure of mechanical valve given lack of anticoagulation. Cardiology was not consulted on arrival, so this will be placed. 3. Possible septic shock of unclear etiology Patient with elevated lactate, tachycardia and hypoxia. Patient will be placed on vasopressin therapy to attempt to decrease Levophed to help with tachycardia. Patient is being placed on empiric antibiotics. Cultures have been sent. COVID-19 testing is currently pending at an outside facility. 4. Seizure disorder/poor historian/advanced COPD Complicates care, management, recovery and prognosis. Unclear CODE STATUS at this time, so proceeding as full code until family can be contacted. TIME: 47 minutes critical care time spent addressing patient's respiratory failure, SVT, non-ST elevation [place], possible septic shock, review of all data and collaboration with care team (5:30 AM to 7:15 AM) [phone]: [id number] Critical care first hour
--- NOTE | 2019-12-13 07:32 | NURSING ---
levophed titrated up to 15 mcg/min at 0440
--- NOTE | 2019-12-13 07:33 | PCM.PN.HOSP ---
Patient Problems: Active and Suspected Problems (Last Reviewed 12/13/19 @ 05:[address] Kevin Ziegler, DO) Acute respiratory failure with hypoxia (Acute) COPD exacerbation (Acute) varicose veins (Acute) History of Coumadin therapy (Acute) Iatrogenic pneumothorax (Acute) Alkaline phosphatase elevation (Acute) Cholelithiasis (Acute) Bilateral leg edema (Acute) Eczema of hand (Acute) Hypersomnia (Acute) Shortness of breath (Acute) Objective: Patient is tachycardic, heart rate 100-161/min. Blood pressure 103/57. Patient on 40% FiO2 on mechanical ventilator. On Levophed drip. Vitals/I&O's: Vital Signs Temp Pulse Resp BP Pulse Ox 98.2 F 110 H 16 103/57 L 96 12/13/19 03:45 12/13/19 07:00 12/13/19 07:00 12/13/19 07:00 12/13/19 07:00 Oxygen Delivery Method Mechanical Ventilator Weight: 198 lb 3.129 oz Body Mass Index (BMI) 26.9 Intake and Output for Last 24 Hours 12/11/19 12/12/19 12/13/19 23:59 23:59 23:59 Intake Total 15.13 / 15.13 Output Total 350 / 350 Balance -334.87 / -334.87 Microbiology Past 72 Hours 12/13/19 05:10 Urine Catheter - Cole Legionella Antigen - Final 12/13/19 05:10 Urine Catheter - Cole Streptococcus pneumoniae Antigen (M - Final Laboratory Results 12/13/19 05:30: Lactic Acid 2.6 H* 12/13/19 05:30: Sodium 141, Potassium 3.9, Chloride 105, Carbon Dioxide 29.0, Anion Gap 7, BUN 26 H, Creatinine 1.54 H, Estim Creat Clear Calc 59.49, Est GFR (MDRD) Af Amer 61, Est GFR (MDRD) Non-Af 50 L, BUN/Creatinine Ratio 16.9, Glucose 127 H, Calcium 7.9 L, Total Bilirubin 1.10 H, AST 71 H, ALT 61, Alkaline Phosphatase 201 H, Troponin I 5.560 H*, Total Protein 6.9, Albumin 3.2, Globulin 3.7, Albumin/Globulin Ratio 0.9, TSH 2.73 12/13/19 05:30: WBC 18.0 H, RBC 4.28 L, Hgb 13.4, Hct 43.8, MCV 102.3 H, MCH 31.3, MCHC 30.6 L, RDW Std Deviation 53.3 H, RDW Coeff of Joseluis 14.2, Plt Count 201, MPV 11.2, Immature Gran % (Auto) 0.900, Neut % (Auto) 80.3 H, Lymph % (Auto) 3.2 L, [place] % (Auto) 14.7 H, Eos % (Auto) 0.5, Baso % (Auto) 0.4, Absolute Neuts (auto) 14.5 H, Absolute Lymphs (auto) 0.57 L, Nucleated RBC % 0, Diff Path Review June12/13/19 05:30: PT 16.4 H, INR 1.4 12/13/19 05:30: Total Creatine Kinase 119, Triglycerides 171 Current Medications Acetaminophen (Acetaminophen 650 Mg Suppository) 650 mg RECTAL Q4H PRN PRN PRN Reason: Pain Score 1-10/Temp > 100.7 F Albuterol Sulfate (Albuterol 2.5 Mg/3 Ml Vial.Neb.) 2.5 mg INHALATION Q2H PRN PRN PRN Reason: SOB/Wheezing Albuterol/Ipratropium (Ipratropium/Albuterol Sulfate 3 Ml Ampul.Neb) 3 ml INHALATION Q4H.RT ERICKA Chlorhexidine Gluconate (Chlorhexidine 15 Ml) 15 ml PO BID [facility] Enoxaparin Sodium (Enoxaparin 100 Mg/Ml Syringe) 90 mg SC Q12@0600,1800 ERICKA Last Admin: 12/13/19 06:35 Dose: 90 mg Documented by: Guaifenesin (Guaifenesin 1,200 Mg Tablet) 1,200 mg PO BID [facility] Diltiazem HCl 125 mg/ Dextrose 125 mls @ 5 mls/hr IV .Q25H ERICKA; Protocol Last Admin: 12/13/19 04:28 Dose: 5 mg/hr, 5 mls/hr Documented by: Sodium Chloride () 250 mls @ 15 mls/hr IV .[id number] PRN PRN Reason: Saline Flush Last Admin: 12/13/19 05:37 Dose: 15 mls/hr Documented by: Sodium Chloride () 250 mls @ 15 mls/hr IV .[id number] PRN PRN Reason: Additional IVPB Infusion Vancomycin IV Pharmacy to Dose (1 ea/ Sodium Chloride) 500 mls @ 250 mls/hr IV X1 PRN; Protocol PRN Reason: Rx to Dose Piperacillin Sod/Tazobactam (Sod 3.375 gm/ Sodium Chloride) 50 mls @ 12.5 mls/hr IV Q8 [facility] Stop: 12/20/19 06:01 Propofol (Diprivan) 1,000 mg in 100 mls @ 5.394 mls/hr CONT INF .Q12H ERICKA; Protocol Last Admin: 12/13/19 06:00 Dose: 30 mcg/kg/min, 16.2 mls/hr Documented by: Fentanyl Citrate 1,000 mcg/ (Sodium Chloride) 100 mls @ 5 mls/hr CONT INF .Q20H ERICKA; Protocol Last Titration: 12/13/19 05:45 Dose: 100 mcg/hr, 10 mls/hr Documented by: Norepinephrine Bitartrate 8 mg (/ Sodium Chloride) 250 mls @ 9.375 mls/hr CONT INF .[id number] ERICKA; Protocol Last Admin: 12/13/19 06:00 Dose: 15 mcg/min, 28.1 mls/hr Documented by: Vasopressin 20 units/ Sodium (Chloride) 25 mls @ 3 mls/hr IV .Q8H20M [facility]ICKA Last Admin: 12/13/19 06:35 Dose: 0.04 units/min, 3 mls/hr Documented by: Methylprednisolone (Methylprednisolone 40 Mg/Ml Vial) 40 mg IV Q8 [facility] Last Admin: 12/13/19 06:18 Dose: 40 mg Documented by: Phenytoin Sodium (Phenytoin Na 100 Mg/2 Ml Vial) 100 mg IV Q12 ERICKA Sodium Chloride (0.9% Saline Lock 10 Ml Syringe) 10 - 40 ml IV UD PRN PRN Reason: SALINE FLUSH Last Admin: 12/13/19 06:18 Dose: 40 ml Documented by: STROKE Vital Signs/Narrative: Vital Signs Temp Pulse Resp BP BP Pulse Ox 12/13/19 07:00 110 H 16 103/57 L 96 12/13/19 06:45 161 H 25 H 106/72 94 12/13/19 06:30 168 H 23 H 98/68 95 12/13/19 06:15 157 H 23 H 120/60 95 12/13/19 06:00 147 H 23 H 110/49 L 100 12/13/19 05:45 148 H 18 98/60 100 12/13/19 05:30 136 H 16 87/58 L 100 12/13/19 05:15 171 H 19 H 111/91 H 100 12/13/19 05:00 186 H 19 H 129/84 H 100 12/13/19 04:45 144 H 17 97/59 L 100 12/13/19 04:40 126 H 73/46 L 12/13/19 04:30 123 H 17 99/57 L 93 12/13/19 04:15 184 H 26 H 125/75 H 12/13/19 04:05 133 H 14 100 12/13/19 04:00 179 H 22 H 130/70 H 99 12/13/19 03:45 98.2 F 194 H 22 H 156/99 H 92 12/13/19 03:43 180 H Medical Necessity - Tobacco Use Smoking Status: Former smoker Assessment/Plan All Active Problems (Last Reviewed 12/13/19 @ 05:[address] Kevin Ziegler, DO) Acute respiratory failure with hypoxia (Acute) COPD exacerbation (Acute) H/O aortic valve replacement (Resolved) S/P VSD repair (Resolved) avr and aortic homograft closure (Resolved) H/O hernia repair (Resolved) varicose veins (Acute) History of Coumadin therapy (Acute) Iatrogenic pneumothorax (Acute) Aortic valve replaced (Resolved) Alkaline phosphatase elevation (Acute) Cholelithiasis (Acute) Bilateral leg edema (Acute) Eczema of hand (Acute) Hypersomnia (Acute) Shortness of breath (Acute)
--- NOTE | 2019-12-13 07:36 | CCHN_ITS ---
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 Discussed with the nighttime hospitalist colleague. Patient was brought in to [place] ER in hypoxic state, 88% on room air and he failed nonrebreather and BiPAP and therefore was intubated. When patient arrived in [facility] ICU patient was coded for rapid heart rate, heart rate about 200/min with concern for ventricular tachycardia and patient received DC shock of 100 J and was given adenosine to slow the heart rate. Later on, it was found SVT or sinus tachycardia. After that patient was put on Cardizem bolus and drip. Right IJ triple-lumen catheter was inserted and patient on Levophed drip. Vasopressin was added in order to slow the tachycardia. Security Checker is consulted. Heart rate is currently controlled 90-100/min. Blood pressure 103/57. Patient on 40% FiO2 on mechanical ventilator. On Levophed drip. On physical exam Patient is unresponsive, intubated on mechanical ventilator Lungs air entry diminished bilaterally. Cardiovascular: Sinus tachycardia, systolic murmur 3/6 over apex. Patient had artificial, mechanical aortic valve, details unclear Extremities: No edema. Skin: No rash, no ulcer Neurology: Sedated. 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 Labs, imagings and medications reviewed. Patient has leukocytosis 18,000 with left shift. INR subtherapeutic 1.4. BUN/creatinine 26/1.4. Lactic acid 2.6, troponin V 0.56. 2D echo is ordered. Patient also had aortic homograft and VSD closure details not known.
--- NOTE | 2019-12-13 08:08 | EKG12_ITS ---
Test Reason : DYSRHYTHMIA Blood Pressure : / mmHG Vent. Rate : 172 BPM Atrial Rate : 172 BPM P-R Int : 080 ms QRS Dur : 180 ms QT Int : 362 ms P-R-T Axes : 090 101 103 degrees QTc Int : 612 ms Possible Atrial Fibrillation RVR Non-specific intra-ventricular conduction block Lateral infarct , age undetermined Inferior infarct , age undetermined Abnormal ECG No previous ECGs available Confirmed by ESTEPHANIE HEARD, RODRIGO ([id number]), science editor JAIDEN KANG ([id number]) on 12/14/2019 11:37:09 AM Referred By: Kevin Ziegler Confirmed By:JUAN HUMMEL MD
--- NOTE | 2019-12-13 08:14 | PCM.CONS.C ---
Problem List (1) Acute respiratory failure with hypoxia Status: Acute (2) COPD exacerbation Status: Acute (3) H/O aortic valve replacement Status: Resolved Comment: aortic root disease 2001 [facility] (4) avr and aortic homograft closure Status: Resolved Comment: 12/06/12 Anel Correia (5) S/P VSD repair Status: Resolved Comment: [facility] 1996 (6) Hyperlipidemia Status: Chronic (7) HTN (hypertension) Status: Chronic (8) Abnormal cardiac enzyme level Status: Acute (9) Cardiac dysrhythmia Status: Acute (10) Learning disability Status: Chronic Reason for Consult Date of Consultation: 12/13/19 History of Present Illness: The patient is a 54 year old white male who is currently in the ICU, sedated, and mechanically intubated/ventilated, with a history of present illness coming from the [facility] medical staff/medical records. It appears the patient was residing in an extended care facility and found to be unresponsive and hypoxic. The patient was taken to a local freestanding emergency department for subsequent evaluation that required sedation and mechanical intubation/ventilation. He was then transferred to [facility] for further evaluation and care. Upon arrival at [facility] there was concerns of an underlying wide-complex tachycardia concerning for ventricular tachycardia for which he underwent an attempt at defibrillation according to the medical records with no success. There was then a report of concern of the rhythm being an SVT with aberrancy and he was treated with IV adenosine 6 mg and subsequently 12 mg x 1 with a report of slowing of his heart rate and rhythm. He was then placed on IV diltiazem. He has had subsequent return to an underlying sinus appearing rhythm. During this time he has been noted to have abnormal troponin I levels, and abnormal lactic acid level, an elevated creatinine level, elevated WBC, and abnormal chest x-ray raising concerns of increased pulmonary vascularity/infiltrates. He has been noted to be hypotensive and requiring IV vasopressor support. From a cardiac standpoint based upon his medical records he has a history of open heart surgery with an aortic valve replacement reportedly a Saint Srini aortic valve. The details of his valve are unknown at this time as to whether it is bioprosthetic or mechanical, however, he has reportedly been on anticoagulant therapy with warfarin reportedly for his aortic valve prosthesis thus raising concern that it could be a mechanical valve. He also reportedly has had an aortic root homograft procedure performed as well as a VSD repair. There are no other cardiovascular records or studies available at this time to assist in additional information regarding his cardiovascular history. Past Medical History Allergies/Adverse Reactions: Allergies No Known Allergies Allergy (Verified 11/03/18 13:19) Home Medications: Ambulatory Orders Medication Instructions Recorded Albuterol Aerosols [Ventolin 2.5 mg INHALATION Q4H PRN PRN 04/05/16 Aerosols] Albuterol Inhaler [Ventolin Hfa] 2 puff INHALATION Q4H PRN PRN 04/05/16 Oxygen, Home [Home Oxygen] 2 - 4 lpm NASAL DAILY 04/05/16 Phenytoin Na [Dilantin] 100 mg PO BID 04/05/16 Phenytoin Sodium Extended 200 mg PO QHS 04/06/16 [Dilantin] Potassium Chloride [Klor-Con M20] 20 meq PO BID 04/06/16 Furosemide [Lasix] 40 mg PO BIDLX #60 tab 04/07/16 Ipratropium/Albuterol Sulfate 3 ml INHALATION Q6H.RT #120 04/07/16 [Duoneb] ampul.neb Nystatin Powder [Mycostatin Powder] 1 applic TOPICAL BID #30 gm 04/07/16 Warfarin [Coumadin] 4 mg PO DAILY@1700 tab 04/07/16 aspirin 81 mg tablet,delayed 81 mg PO QDAY 03/17/17 release metoprolol tartrate 25 mg tablet 37.5 mg PO QDAY tab 03/17/17 multivitamin 1 tab PO QDAY 03/17/17 fluticasone fur. 100 mcg-umeclid 1 inh INHALATION DAILY #1 ea 11/15/19 62.5 mcg-vilant 25 mcg inhalat.powder Past Medical History (Chronic Problems): Chronic Problems (Last Reviewed 12/13/19 @ 05:[address] 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) DVT (deep venous thrombosis) (Chronic) Learning disability (Chronic) Hyperlipidemia (Chronic) HTN (hypertension) (Chronic) Aortic valve disease (Chronic) Ventricular septal defect (Chronic) Seizure disorder (Chronic) GERD (gastroesophageal reflux disease) (Chronic) COPD (chronic obstructive pulmonary disease) (Chronic) Mood disorder (Chronic) Obesity (Chronic) Hypoxemic respiratory failure, chronic (Chronic) Surgical History: - - Mitral valve replacement ?2 Psychiatric History: No pertinent psych hx - *Family History Maternal Family History: Family History (Last Reviewed 12/13/19 @ 05:[address] Kevin Ziegler DO) Father Lung cancer Osteoarthritis Mother Diabetes Thyroid disorder High cholesterol Breast cancer Grandmother Heart disease CVA (cerebral vascular accident) History Items: Unknown Paternal Family History: Family History (Last Reviewed 12/13/19 @ 05:[address] Kevin Ziegler DO) Father Lung cancer Osteoarthritis Mother Diabetes Thyroid disorder High cholesterol Breast cancer Grandmother Heart disease CVA (cerebral vascular accident) History Items: Unknown Lives: [facility] Assisted living center Smoking Status: Former smoker Review of Systems - Review of Systems General: Reports: Fatigue, Night Sweats. Denies: Fever Cardiovascular: Reports: Shortness of Breath. Denies: Chest Discomfort, Orthopnea, PND, Peripheral Edema, Palpitations, Lightheadedness, Dizziness, Near Syncope, Syncope Respiratory: Reports: Shortness of Breath Gastrointestinal: Denies: Hematemesis, Hematochezia, Melena Genitourinary: Denies: Dysuria, Hematuria Skin: Denies: Rash Subjectve: This is an older than stated age appearing 54-year-old white male who appears to be sedated and mechanically intubated/ventilated at this time. Objective: Vital Signs Temp Pulse Resp BP Pulse Ox 97.8 F 85 18 94/59 L 95 12/13/19 07:59 12/13/19 08:03 12/13/19 07:59 12/13/19 08:03 12/13/19 07:59 Oxygen Delivery Method Mechanical Ventilator Weight: 198 lb 3.129 oz Body Mass Index (BMI) 26.9 Intake and Output for Last 24 Hours 12/11/19 12/12/19 12/13/19 23:59 23:59 23:59 Intake Total 958.28 / 958.28 Output Total 350 / 350 Balance 608.28 / 608.28 Neck: No JVD Lungs: Diminished Edmundo Bases Cardiovascular: Regular Rhythm, Normal S1, Nobles Prosthetic S1 Abdomen: Bowel Sounds Present, Soft Extremities: No edema 12/13/19 05:30: Lactic Acid 2.6 H* 12/13/19 05:30: Sodium 141, Potassium 3.9, Chloride 105, Carbon Dioxide 29.0, Anion Gap 7, BUN 26 H, Creatinine 1.54 H, Est GFR (MDRD) Af Amer 61, Est GFR (MDRD) Non-Af 50 L, BUN/Creatinine Ratio 16.9, Glucose 127 H, Calcium 7.9 L, Total Bilirubin 1.10 H, Troponin I 5.560 H* 12/13/19 05:30: WBC 18.0 H, RBC 4.28 L, Hgb 13.4, Hct 43.8, MCV 102.3 H, MCH 31.3, MCHC 30.6 L, Plt Count 201, MPV 11.2, Immature Gran % (Auto) 0.900, Neut % (Auto) 80.3 H, Lymph % (Auto) 3.2 L, [place] % (Auto) 14.7 H, Eos % (Auto) 0.5, Baso % (Auto) 0.4, Absolute Neuts (auto) 14.5 H, Nucleated RBC % 0 12/13/19 05:30: PT 16.4 H, INR 1.4 12/13/19 05:30: Triglycerides 171 Rhythm: Sinus versus ectopic atrial rhythm EKG: Sinus versus ectopic atrial rhythm with a first-degree AV block with left axis deviation, right bundle branch block, and possible left anterior fascicular block CXR: Preliminary evaluation is noted: Final report pending Assessment/Plan 1. Acute respiratory distress The patient presented with an acute respiratory failure/distress situation. He has required mechanical intubation/ventilation. The etiology may be multifactorial. There are concerns that this may be related to his underlying significant pulmonary disease process. At the same time there have been concerns as to whether or not there is any cardiovascular component. At the moment he is continuing pulmonary evaluation and care. He will continue cardiovascular evaluation. This will include monitoring his cardiac rate and rhythm, cardiac enzymes, ECG for any changes, as well as obtaining a transthoracic echocardiogram to assess his valvular anatomy and physiology as well as his ventricular wall motion and systolic function. An attempt will be made to obtain previous cardiovascular records for further definition of his cardiovascular disease and procedures. 2. COPD exacerbation The patient does have significant underlying COPD. There is concerned that he is part of his presentation may be a COPD exacerbation. Thus he will continue evaluation care per pulmonology. 3. Aortic valve replacement Based upon his medical records available there comments that he may have a Saint Srini prosthetic valve-mechanical. However the details of this are unknown at this time. He will undergo further evaluation with a transthoracic echocardiogram. He has been placed on anticoagulant therapy in the interim. An attempt will be made to find previous medical records for continuity of care. 4. Status post aortic homograft Again the details of his open heart surgery are unknown at this time. An attempt was made to find his records for continuity of care. 5. Status post VSD closure The patient reported Juan had a VSD closure based upon his past medical records. Again the details are unknown. This can be further assessed with a transthoracic echocardiogram. 6. Hyperlipidemia The patient reportedly has a history of hyperlipidemia. He can continue evaluation medical therapy as deemed appropriate. 7. Hypertension The patient reportedly has a history of hypertension. Based on medical records he has been significantly hypotensive with his ongoing evaluation and care. He has required IV vasopressor support. From a cardiac standpoint he will continue to be monitored and evaluated as noted. This will include a transthoracic echocardiogram to reassess his valvular anatomy and physiology and his left ventricular wall motion systolic function-as best as possible. 8. Abnormal cardiac enzymes The patient does have abnormal cardiac enzymes. It is unclear whether this represents a acute coronary syndrome with a type I event versus a type II event from supply demand mismatch based upon concerns of his underlying COPD/report of hypoxemia, concerns of underlying possible infectious disease process based upon his elevated lactic acid levels, concerns of his underlying report of hypotension, etc. He will continue to be monitored with his cardiac rate and rhythm. His cardiac enzymes will be followed as well as his ECG. He will undergo noninvasive evaluation as noted. Depending upon his clinical course he may need further invasive evaluation over time. 9. Cardiac dysrhythmia The patient presented with findings concerning for an underlying wide-complex tachycardia. After evaluation there were concerns that this may have been an SVT with his underlying aberrancy versus a sinus tach with his underlying aberrancy. He has been treated as noted above. At the moment he appears to be in a sinus versus ectopic atrial rhythm with a prolonged CO interval. 10. Learning disability There is report of a learning disability. The details are unknown. This may have a role with respect to the patient's ongoing evaluation and care. He has been on IV diltiazem. An attempt will be made to wean this down and off as tolerated. Comment: The above was discussed and reviewed with Dr. Naqvi. This note was generated using a voice recognition system and there may be incorrect words, spelling or punctuation that were not noted when reviewing the office note prior to saving.
[2019-12-13 09:33] LABS: Reflex Lactate? Y
[2019-12-13] MEDS: Chlorhexidine 15 ML PO ×2 (09:49→21:17)
[2019-12-13] MEDS: Phenytoin Na 100 MG/2 ML Vial IV ×2 (09:49→21:18)
[2019-12-13] MEDS: Ipratropium/Albuterol Sulfate 3 ML AMPUL.NEB INHALATION ×4 (10:56→22:44)
--- NOTE | 2019-12-13 10:57 | CPS ---
did not give patient his Duoneb at 0645 due to heart rate being 166. Could not document the medication not given on the APR.
--- NOTE | 2019-12-13 11:01 | PCM.NTREPORT ---
Nutrition Therapy Report - History Nutrition Services has been consulted to:: Manage enteral nutrition Current diet / nutrition support order:: NPO - Anthropometric Measurements Height:: 6 ft Weight:: 89.9 kg Body Mass Index (BMI):: 26.9 - Relevant Labs Relevant Labs:: WBC 18.0 K/mm3 (4.4-11.0) H 12/13/19 05:30 RBC 4.28 M/mm3 (4.6-6.2) L 12/13/19 05:30 MCV 102.3 fL (80-94) H 12/13/19 05:30 MCHC 30.6 g/dL (32-36) L 12/13/19 05:30 RDW Std Deviation 53.3 fl (35.1-43.9) H 12/13/19 05:30 Neut % (Auto) 80.3 % (47-70) H 12/13/19 05:30 Lymph % (Auto) 3.2 % (19-41) L 12/13/19 05:30 [place] % (Auto) 14.7 % (0-10) H 12/13/19 05:30 Absolute Neuts (auto) 14.5 X10^3/uL (2.0-7.7) H 12/13/19 05:30 Absolute Lymphs (auto) 0.57 X10^3/uL (0.83-4.51) L 12/13/19 05:30 PT 16.4 SECONDS (11.7-14.9) H 12/13/19 05:30 BUN 26 mg/dL (7-18) H 12/13/19 05:30 Creatinine 1.54 mg/dL (0.70-1.30) H 12/13/19 05:30 Est GFR (MDRD) Non-Af 50 mL/min (>60) L 12/13/19 05:30 Glucose 127 mg/dL (74-106) H 12/13/19 05:30 Lactic Acid 2.6 mmol/L (0.4-1.9) H* 12/13/19 05:30 Calcium 7.9 mg/dL (8.5-10.1) L 12/13/19 05:30 Total Bilirubin 1.10 mg/dL (0.20-1.00) H 12/13/19 05:30 AST 71 U/L (15-37) H 12/13/19 05:30 Alkaline Phosphatase 201 U/L (45-117) H 12/13/19 05:30 Troponin I 6.020 ng/mL (<0.045) H* 12/13/19 08:30 - Assessment Food / Nutrition-Related History:: Discussed in ICU rounds. Pt is currently intubated. OG in place. No family available to interview. Pt was unable to answer admission nutrition questions. No recent wt hx available in EMR. Per rounds, pt resides at assisted living. Has bilat ankle 1+ pitting edema per nursing documentation. Per annabelle allen to start enteral nutrition support today. - Nutrition Diagnosis Problem / Etiology / Signs & Symptoms (PES):: Inadequate oral intake related to mechanical ventillation, resp. failure as evidenced by NPO status, OGT placement. Evidence of Malnutrition Exists:: No - Nutrition Intervention Nutrition Prescription:: 2382-1074 calories, 90-110 g protein per day. - Food / Nutrient Delivery Interventions Summary of nutrition intervention:: Per annabelle Winston to start enteral nutrition support. See recommendations below. Nutrition support ordered as / adjusted to:: If pt to remain intubated, recommend enteral nutrition support via OG- Vital AF 1.2 at goal rate of 75mL/hour w/ 125mL H2O flush every 4 hours to provide 2160 calories, 135 g protein, and 2210mL total fluid/day. Enteral nutrition support will be administered via gravity feed bag. Total formula to be administered in 24 hours: 1800mL. Recommend 120mL for first 4 hours (approx. 10 drops/minute, 3 drops per 15 seconds); Increase to 180mL for the next 4 hours as tolerated (approx. 15 drops/minute, 4 drops per 15 seconds); Then increase to 240mL for next 4 hours (approx. 20 drops/minute, 5 drops per 15 seconds). Goal rate is 300mL per 4 hours (approx. 25 drops/minute, 6 drops per 15 seconds). - MNT Monitoring Further MNT monitoring and evaluation required?: Yes MNT Follow-up in:: 1-2 days
[2019-12-13 11:11] LABS: Base Excess 2 mmol/L (-2 to +2); Bicarbonate 28.2 mmol/L (22-26); Blood Gas Specimen Type ART; FI02 40; Mode AC; O2 Delivery Device Adult Vent; PO2 68 mmHG (75-100); SITE R Brach; SO2 92 % (95-99); Total Carbon Dioxide 30 mmol/L; Vt 450; pCO2 53.7 mmHg (35-45); pH 7.33 (7.35-7.45)
[2019-12-13] MEDS: Famotidine 20 MG Tablet GT ×2 (11:17→21:18)
[2019-12-13] MEDS: guaiFENesin 1,200 MG Tablet 1200 MG PO ×2 (11:17→21:18)
--- NOTE | 2019-12-13 11:20 | PCM.RX.CS ---
Consult Pharmacy has been consulted to manage selected antiobiotic: Vancomycin Type of Consult: New start Suspected Infection: Sepsis Prior Doses of Antibiotics Received/Current Regimen: 1 Labs: Sodium 141 mmol/L (136-145) 12/13/19 05:30 Potassium 3.9 mmol/L (3.5-5.1) 12/13/19 05:30 Chloride 105 mmol/L (98-107) 12/13/19 05:30 Carbon Dioxide 29.0 mmol/L (21.0-32.0) 12/13/19 05:30 Anion Gap 7 (5-15) 12/13/19 05:30 BUN 26 mg/dL (7-18) H 12/13/19 05:30 Creatinine 1.54 mg/dL (0.70-1.30) H 12/13/19 05:30 Est GFR (MDRD) Af Amer 61 mL/min (>60) 12/13/19 05:30 Est GFR (MDRD) Non-Af 50 mL/min (>60) L 12/13/19 05:30 BUN/Creatinine Ratio 16.9 RATIO (-) 12/13/19 05:30 Glucose 127 mg/dL (74-106) H 12/13/19 05:30 Microbiology: Microbiology 12/13/19 05:10 Urine Catheter - Cole Legionella Antigen - Final 12/13/19 05:10 Urine Catheter - Cole Streptococcus pneumoniae Antigen (M - Final Weight used for dosin kg Estimated Creatinine Clearance: 59.5 Goal Trough: 15-20 mcg/mL Pharmacy Plan for Drug DosinMG IVPB Q12H BEGINNING 12/13/19 AT 1700. TROUGH LEVEL ORDERED FOR 12/14/19 AT 1630 PRIOR TO 4TH TOTAL DOSE. Pharmacy Service will continue to monitor and adjust dosing as required. Follow-Up Labs: Trough Vancomycin - 12/14/19 AT 1630 PRIOR TO 4TH DOSE
--- NOTE | 2019-12-13 12:36 | NURSING ---
RN CM Assessment Called patient sister (HPOA) Suzette Rico cell# [phone]. Introduced role of RN CM to sister and agreeable to speaking at this time to complete assessment. Care providers, pharmacy, and demographics verified. Admit Dx: Respiratory Failure Re-Admit: No Barriers/Issues: Patient lives at [facility]. Current with [facility] #[phone] (she s/w Angela), Aide 3-4hrs/day and a nurse periodically for INR check. Per rounding report this morning, patient on home Coumadin, INR 1.4. Per sister she used to manage patient medication and not sure if nurse from [facility] assist with managing medications. [facility] Aide- through Crs/waiver? Called [facility] and left a VM to return call to this chart writer to verify services. PCP: Jason Leal Specialists: Cardio- [facility] (has not seen in a couple years), Pulm- Dr Marlow Preferred Pharmacy: [facility] Insurance: [facility] A&B, [facility] Rx Benefit: Yes LNOK: Sister Suzette Rico LW/HPOA: Per sister Suzette patient has both completed and states HPOA done in 2013 and she is the HPOA. Aware if/when advanced directives brought into [facility] a copy will be scanned on file. Living Arrangements: Lives alone in independent living facility (see above), no steps to enter home. ADL?s: Ambulates independently and uses a cane when needed. Requires assistance with showering and light house keeping. Patient manages dressing himself, gets meals delivered from [employer]. Per sister believes patient is managing own medications but not sure if [facility] nurse assists. Transportation: Patient drives local, sister Suzette drives otherwise and upon DC DME: Cane, Home O2- 3-3.5LPM continuous- Lynette (called [employer] and sales #[phone], s/w Ban and confirmed services with them and current order at 4LPM). Portable electric O2 tank. shower chair, motorized scooter, lift chair, Nebulizer. HHC: Current with [facility]- Aid (need services confirmed, see note above) SNF: Past at [facility] (Does not ever want to return) Goal: Per sister patient had commented to her about wanting to go to a SNF just prior to this hospitalization. States she also feels that is where patient needs to go prior to transitioning home. Stated plan SNF upon DC unless patient enormously improves upon DC then plan might change to home. States SNF preference [facility] and s/w Tiffany yesterday and had some beds as of now. Aware RNCM will continue to follow and is available for any emerging needs. DC PLAN: SNF- Preference [facility]. Panel Edge Sealer Zainab Aden, QUINCM
--- NOTE | 2019-12-13 12:42 | CASEMGMT ---
Social Work Note SW updated that pt's sister Suzette who is POA for pt is agreeable to pt going to [facility] at discharge. Pt reportedly mentioned this to pt's sister Suzette before he had to come to the hospital. Pt is currently on vent. SW to continue to follow, will speak with pt once pt is off vent and is medically stable. Zainab Green MICA PARTS SPRAYER, SPRINKLING SYSTEM IRRIGATOR
[2019-12-13] MEDS: Propofol 10MG/Ml 1,000 MG/100 ML Bottle 13.5 MG CONT INF ×2 (12:57→18:10)
[2019-12-13 13:49] LABS: Pathologist Review Reviewed
[2019-12-13] MEDS: Vancomycin IV 1,000 MG/200 ML BAG 200 MG IV (17:02)
[2019-12-13] MEDS: Vital AF 1.2 Cal Liquid 1,000 ML 75 ML GT (18:07)
--- NOTE | 2019-12-13 23:06 | NURSING ---
following tube feed protocol, flushed with 125cc of sterile water and 180ml added to gravity bag and 4 drops per 15 seconds noted
[2019-12-14] VITALS (64 sets, daily range): BP systolic 88–173; BP diastolic 36–110; PULSE 75–132; RESP 12–25; TEMP 36.3–36.8; O2SAT 89–100
[2019-12-14] MEDS: TITRATION PARAMETER CHANGE 1 EACH IV ×2 (00:23→05:48)
[2019-12-14] MEDS: Propofol 10MG/Ml 1,000 MG/100 ML Bottle 13.5 MG CONT INF (00:55)
[2019-12-14] MEDS: Ipratropium/Albuterol Sulfate 3 ML AMPUL.NEB INHALATION ×6 (03:31→22:51)
[2019-12-14 03:53] LABS: Absolute Lymphocyte Count 0.22 X10^3/uL (0.83-4.51); Absolute Neutrophil Count 9.9 X10^3/uL (2.0-7.7); Basophil# 0.01 X10^3/uL; Basophil% 0.1 % (0-1); Eosinophil# 0.01 X10^3/uL; Eosinophils% 0.1 % (0-5); Hematocrit 39.1 % (40-54); Hemoglobin 12.1 g/dL (13.0-16.5); Lymphocyte # 0.22 X10^3/ul (4.0); Lymphocyte % 2.1 % (19-41); Mean Corp Hgb Conc 30.9 g/dL (32-36); Mean Corpuscular Hgb 31.5 pg (27.0-32.0); Mean Corpuscular Volume 101.8 fL (80-94); Mean Platelet Vol. 11.1 fl (6.2-12.0); Monocyte# 0.39 X10^3/uL; Monocyte% 3.7 % (0-10); NRBC Flagged by Analyzer 0 % (0-5); Neutrophil # 9.88 X10^3/uL (2.7-7.7); Neutrophil % 93.3 % (47-70); POSITIVE DIFFERENTIAL YES; Platelet Count 131 K/mm3 (150-450); RBC Distribution Width CV 14.6 % (11.6-14.6); RBC Distribution Width SD 54.2 fl (35.1-43.9); Red Blood Count 3.84 M/mm3 (4.6-6.2); White Blood Count 10.6 K/mm3 (4.4-11.0)
[2019-12-14 03:56] LABS: Differential Indicated SCAN CRITERIA MET
[2019-12-14] MEDS: Vancomycin IV 1,000 MG/200 ML BAG 200 MG IV (04:04)
[2019-12-14 04:27] LABS: Anion Gap 4 (5-15); BUN 35 mg/dL (7-18); Calcium,Total 7.9 mg/dL (8.5-10.1); Chloride 102 mmol/L (98-107); Creatinine, Serum 1.52 mg/dL (0.70-1.30); Differential Comment SCANNED; EST Glomerular Filtration Rate 51 mL/min (>60); Est Glom Filt Rate - Afr Amer 62 mL/min (>60); Estimated Creatinine Clearance 60.27 ml/min; Glucose 173 mg/dL (74-106); Magnesium 2.3 mg/dL (1.6-2.6); Phosphorus 3.4 mg/dL (2.5-4.9); Potassium 4.3 mmol/L (3.5-5.1); Sodium Level 138 mmol/L (136-145)
[2019-12-14 04:29] LABS: Macrocytosis RARE
[2019-12-14] MEDS: Enoxaparin 100 MG/ML Syringe 90 MG SC ×2 (05:35→17:05)
--- NOTE | 2019-12-14 05:55 | EKG12_ITS ---
Test Reason : CONVERSION Blood Pressure : / mmHG Vent. Rate : 086 BPM Atrial Rate : 086 BPM P-R Int : 248 ms QRS Dur : 140 ms QT Int : 438 ms P-R-T Axes : 000 -64 068 degrees QTc Int : 524 ms Accelerated Junctional Rhythm Right bundle branch block Left anterior fascicular block Bifascicular block Abnormal ECG When compared with ECG of 05-APR-2016 17:15, NE interval has increased Confirmed by ESTEPHANIE HEARD, RODRIGO ([id number]), social media editor JAIDEN KANG ([id number]) on 12/14/2019 11:36:32 AM Referred By: Kevin Ziegler Confirmed By:JUAN HUMMEL MD
[2019-12-14 06:01] LABS: Base Excess 6 mmol/L (-2 to +2); Bicarbonate 31.5 mmol/L (22-26); Blood Gas Specimen Type ART; FI02 35; Mode CPAP/PS; O2 Delivery Device ET Tube; PEEP 5; PO2 74 mmHG (75-100); PS 5; SITE R Radial; SO2 93 % (95-99); Total Carbon Dioxide 33 mmol/L; pCO2 59.8 mmHg (35-45); pH 7.33 (7.35-7.45)
--- NOTE | 2019-12-14 06:33 | PN_ITS ---
Subjective: Patient did well overnight. Patient was able to come off of vasopressin early yesterday, but still requires Levophed to maintain appropriate blood pressures. Patient was able to pass a spontaneous breathing trial this morning and was successfully extubated. Patient was tolerating tube feeds up until that point. Patient denies any pain. Objective: Echocardiogram shows an EF of 65% with focal wall motion abnormalities. Patient did have an elevated RVSP at 51 mmHg and mild aortic stenosis. General: Alert, Cooperative, No apparent distress, - - Appears younger than stated age HEENT: Atraumatic, PERRLA, EOMI, Normocephalic, - - No scleral icterus or injection noted Oral: Moist Mucosa, No Gingival or Mucosal Lesions/ Ulcerations Neck: Supple, No JVD, No Nodes, Trachea Midline, - - Central line is clean, dry and intact Lungs: No rhonchi, No wheeze, No rales, Diminished Cardiovascular: Regular rate, Regular Rhythm, Normal S1, Normal S2, No murmurs, No rub noted, No Gallop, - - Sinus rhythm noted on telemetry Abdomen: Bowel Sounds Present, Soft, Non Tender, Non-Distended Extremities: No clubbing, No cyanosis, No edema, Capillary Refill Less than 3 Seconds Skin: - - No change compared to previous Musculoskeletal: No Tenderness to Palpation of Joints or Extremities Lymphatic: No Cervical, Supraclavicular, or Inguinal Adenopathy Neurological: Cranial nerves II-XII grossly intact, Neuro grossly intact, Motor Exam 5/5 strength throughout Psych/Mental Status: Normal Affect, Appropriate Vital Signs Temp Pulse Resp BP Pulse Ox 36.8 C 87 17 114/53 L 97 12/14/19 00:00 12/14/19 06:00 12/14/19 06:00 12/14/19 06:00 12/14/19 06:00 Oxygen Delivery Method Mechanical Ventilator Weight: 91 kg Body Mass Index (BMI) 26.9 Intake and Output for Last 24 Hours 12/12/19 12/13/19 12/14/19 23:59 23:59 23:59 Intake Total 2312.12 / 2327.17 853.23 / 853.23 Output Total 915 / 915 185 / 185 Balance 1397.12 / 1412.17 668.23 / 668.23 Labs (Last 48 Hours) 12/13/19 12/13/1920 05:30 05:30 05:30 WBC 18.0 H RBC 4.28 L Hgb 13.4 Hct 43.8 MCV 102.3 H MCH 31.3 MCHC 30.6 L RDW Std Deviation 53.3 H RDW Coeff of Joseluis 14.2 Plt Count 201 MPV 11.2 Immature Gran % (Auto) 0.900 Neut % (Auto) 80.3 H Lymph % (Auto) 3.2 L Dixon % (Auto) 14.7 H Eos % (Auto) 0.5 Baso % (Auto) 0.4 Absolute Neuts (auto) 14.5 H Absolute Lymphs (auto) 0.57 L Nucleated RBC % 0 Differential Comment Diff Path Review Reviewed Macrocytosis PT INR Specimen Type Sample Site pH Bicarbonate Actual Total CO2 Base Excess O2 Saturation O2 % ABG pCO2 ABG pO2 Respiration Rate O2 Delivery Device Vent Mode Tidal Volume POC PEEP POC Pressure Suppt Sodium 141 Potassium 3.9 Chloride 105 Carbon Dioxide 29.0 Anion Gap 7 BUN 26 H Creatinine 1.54 H Estim Creat Clear Calc 59.49 Est GFR (MDRD) Af Amer 61 Est GFR (MDRD) Non-Af 50 L BUN/Creatinine Ratio 16.9 Glucose 127 H Lactic Acid 2.6 H* Calcium 7.9 L Phosphorus Magnesium Total Bilirubin 1.10 H AST 71 H ALT 61 Alkaline Phosphatase 201 H Total Creatine Kinase Troponin I 5.560 H* Total Protein 6.9 Albumin 3.2 Globulin 3.7 Albumin/Globulin Ratio 0.9 Triglycerides TSH 2.73 COVID-19 ([facility]) 12/13/19 12/13/19 12/13/19 05:30 05:30 08:30 WBC RBC Hgb Hct MCV MCH MCHC RDW Std Deviation RDW Coeff of Joseluis Plt Count MPV Immature Gran % (Auto) Neut % (Auto) Lymph % (Auto) [place] % (Auto) Eos % (Auto) Baso % (Auto) Absolute Neuts (auto) Absolute Lymphs (auto) Nucleated RBC % Differential Comment Diff Path Review Macrocytosis PT 16.4 H INR 1.4 Specimen Type Sample Site pH Bicarbonate Actual Total CO2 Base Excess O2 Saturation O2 % ABG pCO2 ABG pO2 Respiration Rate O2 Delivery Device Vent Mode Tidal Volume POC PEEP POC Pressure Suppt Sodium Potassium Chloride Carbon Dioxide Anion Gap BUN Creatinine Estim Creat Clear Calc Est GFR (MDRD) Af Amer Est GFR (MDRD) Non-Af BUN/Creatinine Ratio Glucose Lactic Acid Calcium Phosphorus Magnesium Total Bilirubin AST ALT Alkaline Phosphatase Total Creatine Kinase 119 Troponin I 6.020 H* Total Protein Albumin Globulin Albumin/Globulin Ratio Triglycerides 171 TSH COVID-19 ([facility]) 12/13/19 12/13/19 12/14/19 08:45 11:05 03:40 WBC RBC Hgb Hct MCV MCH MCHC RDW Std Deviation RDW Coeff of Joseluis Plt Count MPV Immature Gran % (Auto) Neut % (Auto) Lymph % (Auto) [place] % (Auto) Eos % (Auto) Baso % (Auto) Absolute Neuts (auto) Absolute Lymphs (auto) Nucleated RBC % Differential Comment Diff Path Review Macrocytosis PT INR Specimen Type ART Sample Site R Brach pH 7.33 L Bicarbonate Actual 28.2 H Total CO2 30 Base Excess 2 O2 Saturation 92 L O2 % 40 ABG pCO2 53.7 H ABG pO2 68 L Respiration Rate 14.0000 O2 Delivery Device Adult Vent Vent Mode AC Tidal Volume 450 POC PEEP 5.0000 POC Pressure Suppt Sodium Potassium Chloride Carbon Dioxide Anion Gap BUN Creatinine Estim Creat Clear Calc Est GFR (MDRD) Af Amer Est GFR (MDRD) Non-Af BUN/Creatinine Ratio Glucose Lactic Acid Calcium Phosphorus Magnesium Total Bilirubin AST ALT Alkaline Phosphatase Total Creatine Kinase Troponin I 1.580 H* Total Protein Albumin Globulin Albumin/Globulin Ratio Triglycerides TSH COVID-19 ([facility]) Not Detected 12/14/19 12/14/19 12/14/19 03:40 03:40 05:53 WBC 10.6 RBC 3.84 L Hgb 12.1 L Hct 39.1 L MCV 101.8 H MCH 31.5 MCHC 30.9 L RDW Std Deviation 54.2 H RDW Coeff of Joseluis 14.6 Plt Count 131 L MPV 11.1 Immature Gran % (Auto) 0.700 Neut % (Auto) 93.3 H Lymph % (Auto) 2.1 L Dixon % (Auto) 3.7 Eos % (Auto) 0.1 Baso % (Auto) 0.1 Absolute Neuts (auto) 9.9 H Absolute Lymphs (auto) 0.22 L Nucleated RBC % 0 Differential Comment SCANNED Diff Path Review Macrocytosis RARE PT INR Specimen Type ART Sample Site R Radial pH 7.33 L Bicarbonate Actual 31.5 H Total CO2 33 Base Excess 6 H O2 Saturation 93 L O2 % 35 ABG pCO2 59.8 H ABG pO2 74 L Respiration Rate O2 Delivery Device ET Tube Vent Mode CPAP/PS Tidal Volume POC PEEP 5 POC Pressure Suppt 5 Sodium 138 Potassium 4.3 Chloride 102 Carbon Dioxide 32.0 Anion Gap 4 L BUN 35 H Creatinine 1.52 H Estim Creat Clear Calc 60.27 Est GFR (MDRD) Af Amer 62 Est GFR (MDRD) Non-Af 51 L BUN/Creatinine Ratio 23.0 H Glucose 173 H Lactic Acid Calcium 7.9 L Phosphorus 3.4 Magnesium 2.3 Total Bilirubin AST ALT Alkaline Phosphatase Total Creatine Kinase Troponin I Total Protein Albumin Globulin Albumin/Globulin Ratio Triglycerides TSH COVID-19 ([facility]) Microbiology 12/13/19 04:30 Sputum, Tracheal Aspirate Gram Stain - Final 12/13/19 08:45 Mucosa - Nasopharyngeal Respiratory Panel (PCR) - Final 12/13/19 05:10 Urine Catheter - Cole Legionella Antigen - Final 12/13/19 05:10 Urine Catheter - Cole Streptococcus pneumoniae Antigen (M - Final Clinical Impression(s) from Imaging Studies Chest X-Ray 12/13/19 04:48 IMPRESSION: emphysema, large bulla formation, chronic interstitial lung disease, scarring as above. Lines appear in good position. Electronically Signed: Pita Anderson MD at 5:50 EDT , Service support , Medical Necessity - Tobacco Use Smoking Status: Former smoker Assessment/Plan All Active Problems (Last Reviewed 12/13/19 @ 05:[address] 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 Wean oxygen as tolerated 2. Appreciate cardiology for recommendations 3. Continue empiric antibiotics, bronchodilators and steroids pending infectious work-up 4. Possibly wean steroids tomorrow and use the short burst given rapid recovery 5. Possible need for heart catheterization 6. Wean oxygen as tolerated. 7. Continue advanced respiratory isolation pending COVID testing IMPRESSIONS: 1. Acute on chronic hypoxic respiratory failure secondary to possible COPD exacerbation Unclear etiology at this time. Patient does have some cephalization noted on chest x-ray, but no obvious infiltrate. Patient does have advanced em physematous changes, so infiltrate may be slow to develop. Will treat empirically with antibiotics, steroids and bronchodilators for now. Patient able to be extubated relatively rapidly. This would suggest a secondary cause of respiratory failure outside of a COPD exacerbation. We will continue full therapy until culture data is available, but if patient continues to improve, transition to a short course of steroids is likely appropriate. 2. SVT/history of valve replacement with lack of anticoagulation Patient receives most of his care at an outside facility. Patient had some adenosine earlier today and was reportedly in sinus tachycardia. Patient remains on a Cardizem drip with poor control. Patient's troponin is elevated, but it is unclear if this is secondary to coronary artery disease in the setting of SVT. Patient's INR was 1.4, so will initiate therapeutic Lovenox. Future anticoagulation per cardiology. Appreciate cardiology input 3. Possible septic shock of unclear etiology Patient with elevated lactate, tachycardia and hypoxia. Patient still requiring some pressors. Leukocytosis is improved. We will continue with antibiotics for now pending culture results. 4. Seizure disorder/poor historian/advanced COPD Complicates care, management, recovery and prognosis. Unclear CODE STATUS at this time, so proceeding as full code until family can be contacted. TIME: 35 minutes critical care time spent addressing patient's respiratory failure, SVT, non-ST elevation HI, possible septic shock, review of all data and collaboration with care team (5:30 AM to 6:30 AM) [phone]: [id number] Critical care first hour
--- NOTE | 2019-12-14 06:48 | NURSING ---
pt extubated at 0635 by respiratory therapy and this RN at bedside, placed on 5L NC, restraints, propofol, fentanyl, and tube feeding D/C'd, pt tolerated well.
--- NOTE | 2019-12-14 09:22 | PCM.PN.CARD ---
Subjectve: The patient is now extubated. He is awake. He knows the year, place, and who the president is. He seems to be somewhat unclear as to some of his past medical history, medications, and where procedures were performed. He does state that he has an aide that comes to his home that checks his blood work via a finger prick. He notes overall he is tired. Objective: Vital Signs Temp Pulse Resp BP Pulse Ox 97.4 F L 106 H 19 H 143/61 H 94 12/14/19 08:00 12/14/19 09:00 12/14/19 09:00 12/14/19 09:00 12/14/19 09:00 Oxygen Flow Rate (L/min) 5 Oxygen Delivery Method Nasal Cannula Weight: 200 lb 9.93 oz Body Mass Index (BMI) 26.9 Intake and Output for Last 24 Hours 12/12/19 12/13/19 12/14/19 23:59 23:59 23:59 Intake Total 2312.12 / 2327.17 876.23 / 876.23 Output Total 915 / 915 220 / 220 Balance 1397.12 / 1412.17 656.23 / 656.23 General: Awake, Alert, Oriented x 3, Cooperative Neck: Supple, Good ROM Lungs: Diminished Edmundo Bases Cardiovascular: Regular Rhythm, Normal S2, [place] Prosthetic S1 Abdomen: Bowel Sounds Present, Soft, Non Tender Extremities: No edema 12/13/19 11:05: pH 7.33 L, Bicarbonate Actual 28.2 H, Base Excess 2, O2 Saturation 92 L, ABG pCO2 53.7 H, ABG pO2 68 L 12/14/19 03:40: Troponin I 1.580 H* 12/14/19 03:40: WBC 10.6, RBC 3.84 L, Hgb 12.1 L, Hct 39.1 L, MCV 101.8 H, MCH 31.5, MCHC 30.9 L, Plt Count 131 L, MPV 11.1, Immature Gran % (Auto) 0.700, Neut % (Auto) 93.3 H, Lymph % (Auto) 2.1 L, [place] % (Auto) 3.7, Eos % (Auto) 0.1, Baso % (Auto) 0.1, Absolute Neuts (auto) 9.9 H, Nucleated RBC % 0 12/14/19 03:40: Sodium 138, Potassium 4.3, Chloride 102, Carbon Dioxide 32.0, Anion Gap 4 L, BUN 35 H, Creatinine 1.52 H, Est GFR (MDRD) Af Amer 62, Est GFR (MDRD) Non-Af 51 L, BUN/Creatinine Ratio 23.0 H, Glucose 173 H, Calcium 7.9 L, Phosphorus 3.4, Magnesium 2.3 12/14/19 05:53: pH 7.33 L, Bicarbonate Actual 31.5 H, Base Excess 6 H, O2 Saturation 93 L, ABG pCO2 59.8 H, ABG pO2 74 L Rhythm: Sinus rhythm EKG: Sinus rhythm; left axis deviation; right bundle branch block; left anterior fascicular block ECHO: Interpretation Summary The study was technically difficult. Segmental dysfunction with preserved ejection fraction (see wall motion). The estimated ejection fraction is 65 %. Post operative septal motion. Trivial mitral valve insufficiency. Trivial tricuspid valve insufficiency. The aortic valve apparatus is not well visualized, however, based upon the 2D echocardiographic images obtained there appears to be a stable appearing mechanical aortic valve prosthesis. Mild aortic stenosis. Right ventricular systolic pressure estimated to be 51 mmHg. Diastolic function is indeterminate. Comment: Based upon the 2D echocardiographic and color-flow Doppler evidence there is no obvious findings compatible with an ongoing ventricular septal defect. Medical Necessity - Tobacco Use Smoking Status: Former smoker Assessment/Plan 1. Acute respiratory distress The patient presented with an acute respiratory failure/distress situation. He has required mechanical intubation/ventilation. He has clinically improved and is now extubated. The etiology may be multifactorial. There are concerns that this may be related to his underlying significant pulmonary disease process. At the same time there have been concerns as to whether or not there is any cardiovascular component. At the moment he is continuing pulmonary evaluation and care. He will continue cardiovascular evaluation. His troponin I levels have trended down. His ECG is as noted. His echocardiogram has been performed and is as noted. An attempt will be made to obtain previous cardiovascular records for further definition of his cardiovascular disease and procedures. 2. COPD exacerbation The patient does have significant underlying COPD. There is concerned that he is part of his presentation may be a COPD exacerbation. Thus he will continue evaluation care per pulmonology. 3. Aortic valve replacement Based upon his medical records available there comments that he may have a [place] prosthetic valve-mechanical. However the details of this are unknown at this time. Based upon his transthoracic echocardiogram his mechanical mitral valve apparatus appears to be stable at this time. He has been placed on anticoagulant therapy in the interim. An attempt will be made to find previous medical records for continuity of care. 4. Status post aortic homograft Again the details of his open heart surgery are unknown at this time. An attempt was made to find his records for continuity of care. 5. Status post VSD closure The patient reported [place] had a VSD closure based upon his past medical records. Again the details are unknown. His echocardiogram does not suggest findings compatible with an ongoing active VSD. 6. Hyperlipidemia The patient reportedly has a history of hyperlipidemia. He can continue evaluation medical therapy as deemed appropriate. 7. Hypertension The patient reportedly has a history of hypertension. Based on medical records he has been significantly hypotensive with his ongoing evaluation and care. He has required IV vasopressor support. Is being weaned down. 8. Abnormal cardiac enzymes The patient does have abnormal cardiac enzymes. It is unclear whether this represents a acute coronary syndrome with a type I event versus a type II event from supply demand mismatch based upon concerns of his underlying COPD/report of hypoxemia, concerns of underlying possible infectious disease process based upon his elevated lactic acid levels, concerns of his underlying report of hypotension, etc. He will continue to be monitored with his cardiac rate and rhythm. His cardiac enzymes will be followed as well as his ECG. Over time, if he is symptomatically improved/hemodynamically stable, then perhaps he can be considered for further evaluation for the possibility of CAD with cardiac catheterization. This was discussed with the patient. He appeared agreeable to this approach. However this may have to be discussed with his next of kin/POA as well. 9. Cardiac dysrhythmia The patient presented with findings concerning for an underlying wide-complex tachycardia. After evaluation there were concerns that this may have been an SVT with his underlying aberrancy versus a sinus tach with his underlying aberrancy. He has been treated as noted above. At the moment he appears to be in a sinus versus rhythm. 10. Learning disability There is report of a learning disability. The details are unknown. This may have a role with respect to the patient's ongoing evaluation and care. Comment: The above was discussed and reviewed with Dr. Rizvi. This note was generated using a voice recognition system and there may be incorrect words, spelling or punctuation that were not noted when reviewing the office note prior to saving.
[2019-12-14] MEDS: guaiFENesin 1,200 MG Tablet 1200 MG PO ×2 (09:58→21:18)
[2019-12-14] MEDS: Phenytoin Na 100 MG/2 ML Vial IV ×2 (09:58→21:18)
[2019-12-14] MEDS: Famotidine 20 MG Tablet PO ×2 (09:58→21:18)
[2019-12-14] MEDS: 0.9% Saline Lock 10 ML Syringe IV ×2 (10:02→21:17)
--- NOTE | 2019-12-14 11:08 | CASEMGMT ---
Addendum entered by Zainab Green 12/14/19 11:15: SW placed a call to [facility], pt's CM is Mariola Isidro. SW left message for Mariola and updated her on pt's admission to [facility]. Original Note: Social Work Note SW participated in ICU rounds. Pt was extubated this morning, is alert and orientated. PT/OT to evaluate pt. SW will speak with pt once pt works with PT/OT to discuss discharge plans. SW to continue to follow. Zainab Green CLINICAL DATA SPECIALIST, [employer]
[2019-12-14] MEDS: Acetaminophen 325 MG Tablet 650 MG PO (15:23)
--- NOTE | 2019-12-14 15:44 | CASEMGMT ---
Social Work Note SW met with pt to discuss discharge plans. SW introduced self and role at [facility]. Pt is alert to self, states it is either Thursday or Thursday and is the beginning or end of the month. SW spoke with pt about [facility] as pt's sister Suzette mentioned yesterday that pt mentioned going to [facility] before pt was admitted to [facility]. Pt hard to follow, states he gets no help at home. Pt states he has some aides that come in to help but that is it. SW asked pt about going to SNF. Pt states there's one close to me, maybe in [place]. SW informed pt that that may be [facility]. Pt states if that's where they want me to go, but I will be upset. Pt stated he wanted to go home but then stated again he didn't have any help at home except for the aides. SW asked pt if he felt like he was taking care of himself at home and taking his medications and pt replied that he does know how to take his medications and how to refill them. SW informed pt that this worker will just continue to follow him and see how pt progress while at [facility]. Pt states I just need to rest, I am tired. SW updated PT/OT. PT/OT to work with pt. Plan: TBD. SW to continue to follow. Zainab Green ARBITRATOR, MACHINE GUIDE BASE WINDER
--- NOTE | 2019-12-14 16:04 | PN_ITS ---
Patient Problems: Active and Suspected Problems (Last Reviewed 12/13/19 @ 05:[address] Kevin Ziegler, DO) Acute respiratory failure with hypoxia (Acute) COPD exacerbation (Acute) Abnormal cardiac enzyme level (Acute) Cardiac dysrhythmia (Acute) varicose veins (Acute) History of Coumadin therapy (Acute) Iatrogenic pneumothorax (Acute) Alkaline phosphatase elevation (Acute) Cholelithiasis (Acute) Bilateral leg edema (Acute) Eczema of hand (Acute) Hypersomnia (Acute) Shortness of breath (Acute) Subjective: Patient was seen and examined today in ICU, he was extubated this morning and appears to be doing well post extubation. I talked with cardiology about his medical care, cardiology would like to perform a cardiac catheterization tomorrow, patient came off pressors today, I talked with his sister who is his POA and she confirmed that it was okay to proceed with a heart cath. - Physical Exam Vitals/I&O's: Vital Signs Temp Pulse Resp BP Pulse Ox 98 F 119 H 20 H 127/75 H 100 12/14/19 12:00 12/14/19 14:21 12/14/19 14:21 12/14/19 13:00 12/14/19 13:00 Oxygen Flow Rate (L/min) 5 Oxygen Delivery Method Nasal Cannula Weight: 91 kg Body Mass Index (BMI) 26.9 Intake and Output for Last 24 Hours 12/12/19 12/13/19 12/14/19 23:59 23:59 23:59 Intake Total 2312.12 / 2327.17 1218.61 / 1218.61 Output Total 915 / 915 295 / 295 Balance 1397.12 / 1412.17 923.61 / 923.61 General: Alert, Oriented x3, Cooperative, No apparent distress, Well developed, - - Patient has cognitive impairment but is able to answer questions appropriately HEENT: Atraumatic, PERRLA, EOMI, Normocephalic Oral: Moist Mucosa Neck: Supple, No JVD, Negative Carotid Bruits, Trachea Midline Lungs: Clear to auscultation, Normal air movement Cardiovascular: Regular rate, Regular Rhythm, Normal S1, Normal S2, PMI Normal, No rub noted, No Gallop, - - Patient has an audible click over the apex suggestive of mechanical valve Abdomen: Bowel Sounds Present, Soft, Non Tender, Non-Distended Extremities: No clubbing, No cyanosis, No edema, Capillary Refill Less than 3 Seconds Skin: No rashes, No breakdown Musculoskeletal: No Tenderness to Palpation of Joints or Extremities, No Muscle Wasting Neurological: Cranial nerves II-XII grossly intact, Neuro grossly intact, Sensory exam intact to light touch and pain, Coordination normal Psych/Mental Status: Flat Affect, - - Patient is alert with evidence of cognitive impairment Microbiology Past 72 Hours 12/13/19 04:30 Sputum, Tracheal Aspirate Gram Stain - Final 12/13/19 04:30 Sputum, Tracheal Aspirate Respiratory Culture - Preliminary Gram negative nolberto 12/13/19 08:45 Mucosa - Nasopharyngeal Respiratory Panel (PCR) - Final 12/13/19 05:10 Urine Catheter - Cole Legionella Antigen - Final 12/13/19 05:10 Urine Catheter - Cole Streptococcus pneumoniae Antigen (M - Final Laboratory Results 12/14/19 03:40: Troponin I 1.580 H* 12/14/19 03:40: WBC 10.6, RBC 3.84 L, Hgb 12.1 L, Hct 39.1 L, MCV 101.8 H, MCH 31.5, MCHC 30.9 L, RDW Std Deviation 54.2 H, RDW Coeff of Joseluis 14.6, Plt Count 131 L, MPV 11.1, Immature Gran % (Auto) 0.700, Neut % (Auto) 93.3 H, Lymph % (Auto) 2.1 L, [place] % (Auto) 3.7, Eos % (Auto) 0.1, Baso % (Auto) 0.1, Absolute Neuts (auto) 9.9 H, Absolute Lymphs (auto) 0.22 L, Nucleated RBC % 0, Differential Comment SCANNED, Macrocytosis RARE 12/14/19 03:40: Sodium 138, Potassium 4.3, Chloride 102, Carbon Dioxide 32.0, Anion Gap 4 L, BUN 35 H, Creatinine 1.52 H, Estim Creat Clear Calc 60.27, Est GFR (MDRD) Af Amer 62, Est GFR (MDRD) Non-Af 51 L, BUN/Creatinine Ratio 23.0 H, Glucose 173 H, Calcium 7.9 L, Phosphorus 3.4, Magnesium 2.3 12/14/19 05:53: Specimen Type ART, Sample Site R Radial, pH 7.33 L, Bicarbonate Actual 31.5 H, Total CO2 33, Base Excess 6 H, O2 Saturation 93 L, O2 % 35, ABG pCO2 59.8 H, ABG pO2 74 L, O2 Delivery Device ET Tube, Vent Mode CPAP/PS, POC PEEP 5, POC Pressure Suppt 5 Current Medications Acetaminophen (Acetaminophen 325 Mg Tablet) 650 mg PO Q4H PRN PRN PRN Reason: Pain Score 1-10 Last Admin: 12/14/19 15:23 Dose: 650 mg Documented by: Albuterol Sulfate (Albuterol 2.5 Mg/3 Ml Vial.Neb.) 2.5 mg INHALATION Q2H PRN PRN PRN Reason: SOB/Wheezing Albuterol/Ipratropium (Ipratropium/Albuterol Sulfate 3 Ml Ampul.Neb) 3 ml INHALATION Q4H.RT [facility] Last Admin: 12/14/19 14:20 Dose: 3 ml Documented by: Enoxaparin Sodium (Enoxaparin 100 Mg/Ml Syringe) 90 mg SC Q12@0600,1800 [facility] Last Admin: 12/14/19 05:35 Dose: 90 mg Documented by: Famotidine (Famotidine 20 Mg Tablet) 20 mg PO BID [facility] Last Admin: 12/14/19 09:58 Dose: 20 mg Documented by: Guaifenesin (Guaifenesin 1,200 Mg Tablet) 1,200 mg PO BID [facility] Last Admin: 12/14/19 09:58 Dose: 1,200 mg Documented by: Sodium Chloride () 250 mls @ 15 mls/hr IV .[id number] PRN PRN Reason: Saline Flush Last Infusion: 12/14/19 04:01 Dose: 0 mls/hr Documented by: Sodium Chloride () 250 mls @ 15 mls/hr IV .[id number] PRN PRN Reason: Additional IVPB Infusion Piperacillin Sod/Tazobactam (Sod 3.375 gm/ Sodium Chloride) 50 mls @ 12.5 mls/hr IV Q8 [facility] Stop: 12/20/19 06:01 Last Admin: 12/14/19 13:03 Dose: 12.5 mls/hr Documented by: Norepinephrine Bitartrate 8 mg (/ Sodium Chloride) 250 mls @ 9.375 mls/hr CONT INF .[id number] [facility]; Protocol Last Titration: 12/14/19 13:00 Dose: 0 mcg/min, 0 mls/hr Documented by: Methylprednisolone (Methylprednisolone 40 Mg/Ml Vial) 40 mg IV Q8 [facility] Last Admin: 12/14/19 13:04 Dose: 40 mg Documented by: Phenytoin Sodium (Phenytoin Na 100 Mg/2 Ml Vial) 100 mg IV Q12 [facility] Last Admin: 12/14/19 09:58 Dose: 100 mg Documented by: Sodium Chloride (0.9% Saline Lock 10 Ml Syringe) 10 - 40 ml IV UD PRN PRN Reason: SALINE FLUSH Last Admin: 12/14/19 10:02 Dose: 20 ml Documented by: Medical Necessity - Tobacco Use Smoking Status: Former smoker Assessment/Plan All Active Problems (Last Reviewed 12/13/19 @ 05:[address] Kevin Ziegler, ) Acute respiratory failure with hypoxia (Acute) COPD exacerbation (Acute) Abnormal cardiac enzyme level (Acute) Cardiac dysrhythmia (Acute) H/O aortic valve replacement (Resolved) S/P VSD repair (Resolved) avr and aortic homograft closure (Resolved) H/O hernia repair (Resolved) varicose veins (Acute) History of Coumadin therapy (Acute) Iatrogenic pneumothorax (Acute) Aortic valve replaced (Resolved) Alkaline phosphatase elevation (Acute) Cholelithiasis (Acute) Bilateral leg edema (Acute) Eczema of hand (Acute) Hypersomnia (Acute) Shortness of breath (Acute) #1 acute on chronic hypoxic respiratory failure from possible COPD exacerbation- patient is currently stable on 5 L nasal cannula, pulmonary medicine is participating in his care #2 elevated cardiac enzymes-etiology unclear at this time, cardiology is planning on a cardiac catheterization tomorrow if the patient remains stable #3 seizure disorder #4 chronic obstructive pulmonary disease #5 cognitive impairment-chronic #6 possible septic shock-unclear etiology, patient had a gram-negative nolberto in his tracheal aspirate, patient will remain on antibiotics, he is off the pressors at this time #7 essential hypertension #8 mechanical aortic valve-patient is currently on Lovenox #9 cardiac [id number] is currently in sinus rhythm Inpatient E&M: [id number] [facility] Hosp L2
[2019-12-14] MEDS: Clopidogrel Bisulfate 300 MG Tablet PO (21:17)
[2019-12-14] MEDS: Metoprolol Tartrate 25 MG Tablet 12.5 MG PO (21:17)
[2019-12-15] VITALS (36 sets, daily range): BP systolic 106–159; BP diastolic 55–82; PULSE 81–112; RESP 12–23; TEMP 36.1–36.7; O2SAT 92–100
[2019-12-15] MEDS: Ipratropium/Albuterol Sulfate 3 ML AMPUL.NEB INHALATION ×5 (03:47→22:53)
[2019-12-15 03:55] LABS: Absolute Lymphocyte Count 0.21 X10^3/uL (0.83-4.51); Absolute Neutrophil Count 7.5 X10^3/uL (2.0-7.7); Hematocrit 35.7 % (40-54); Hemoglobin 10.9 g/dL (13.0-16.5); Lymphocyte # 0.21 X10^3/ul (4.0); Lymphocyte % 2.6 % (19-41); Mean Corp Hgb Conc 30.5 g/dL (32-36); Mean Corpuscular Hgb 31.2 pg (27.0-32.0); Mean Corpuscular Volume 102.3 fL (80-94); Mean Platelet Vol. 10.5 fl (6.2-12.0); Monocyte# 0.44 X10^3/uL; Monocyte% 5.4 % (0-10); NRBC Flagged by Analyzer 0 % (0-5); Neutrophil # 7.46 X10^3/uL (2.7-7.7); Neutrophil % 91.5 % (47-70); POSITIVE DIFFERENTIAL YES; Platelet Count 116 K/mm3 (150-450); RBC Distribution Width CV 14.8 % (11.6-14.6); Red Blood Count 3.49 M/mm3 (4.6-6.2); White Blood Count 8.2 K/mm3 (4.4-11.0)
[2019-12-15 04:07] LABS: Anion Gap 2 (5-15); BUN 34 mg/dL (7-18); BUN/Creat Ratio 31.5 RATIO (10-20); Calcium,Total 7.8 mg/dL (8.5-10.1); Chloride 106 mmol/L (98-107); Creatinine, Serum 1.08 mg/dL (0.70-1.30); EST Glomerular Filtration Rate 75 mL/min (>60); Est Glom Filt Rate - Afr Amer 91 mL/min (>60); Estimated Creatinine Clearance 84.83 ml/min; Glucose 126 mg/dL (74-106); Magnesium 2.3 mg/dL (1.6-2.6); Phosphorus 2.7 mg/dL (2.5-4.9); Potassium 4.5 mmol/L (3.5-5.1); Sodium Level 140 mmol/L (136-145)
[2019-12-15 04:11] LABS: Differential Indicated SCAN CRITERIA MET
[2019-12-15 04:20] LABS: Differential Comment SCANNED; Macrocytosis 1+; Polychromasia RARE
[2019-12-15] MEDS: Aspirin 81 MG TAB.CHEW PO (05:17)
[2019-12-15] MEDS: Clopidogrel Bisulfate 75 MG Tablet PO (05:18)
[2019-12-15] MEDS: Metoprolol Tartrate 25 MG Tablet 12.5 MG PO ×2 (05:18→09:55)
--- NOTE | 2019-12-15 06:25 | PCM.PN.INT ---
Subjective: Patient did well overnight. No acute issues were reported. Patient did use BiPAP for short period of time overnight. Patient is back to his home 3 L nasal cannula and reports he feels back to baseline. Patient does have a catheterization tentatively scheduled for 8 AM today General: Alert, Oriented x3, Cooperative, - - Somewhat flat of ideas with pressured speech. HEENT: Atraumatic, PERRLA, EOMI, Normocephalic, - - No scleral icterus or injection noted Oral: Moist Mucosa, No Gingival or Mucosal Lesions/ Ulcerations Neck: Supple, No JVD, No Nodes, Trachea Midline Lungs: No rhonchi, No wheeze, No rales, Diminished, - - Symmetric expansion. No dullness to percussion. Cardiovascular: Normal S1, Normal S2, No murmurs, No rub noted, No Gallop, Tachycardic Abdomen: Bowel Sounds Present, Soft, Non Tender, Non-Distended Extremities: No clubbing, No cyanosis, No edema Skin: No rashes, No breakdown Musculoskeletal: No Tenderness to Palpation of Joints or Extremities Lymphatic: No Cervical, Supraclavicular, or Inguinal Adenopathy Neurological: Cranial nerves II-XII grossly intact, Neuro grossly intact, Motor Exam 5/5 strength throughout Psych/Mental Status: Anxious, Impulsive, Restless Vital Signs Temp Pulse Resp BP Pulse Ox 36.7 C 104 H 16 112/65 92 12/15/19 04:00 12/15/19 05:18 12/15/19 05:00 12/15/19 05:00 12/15/19 05:00 Oxygen Flow Rate (L/min) 3 Oxygen Delivery Method Nasal Cannula Weight: 91 kg Body Mass Index (BMI) 26.9 Intake and Output for Last 24 Hours 12/13/19 12/14/19 12/15/19 23:59 23:59 23:59 Intake Total 2312.12 / 2327.17 1508.61 / 1508.61 170 / 170 Output Total 915 / 915 545 / 545 0 / 0 Balance 1397.12 / 1412.17 963.61 / 963.61 170 / 170 Labs (Last 48 Hours) 12/13/19 12/13/19 12/13/19 05:30 08:30 08:45 WBC RBC Hgb Hct MCV MCH MCHC RDW Std Deviation RDW Coeff of Joseluis Plt Count MPV Immature Gran % (Auto) Neut % (Auto) Lymph % (Auto) [place] % (Auto) Eos % (Auto) Baso % (Auto) Absolute Neuts (auto) Absolute Lymphs (auto) Nucleated RBC % Differential Comment Diff Path Review Reviewed Polychromasia Macrocytosis Specimen Type Sample Site pH Bicarbonate Actual Total CO2 Base Excess O2 Saturation O2 % ABG pCO2 ABG pO2 Respiration Rate O2 Delivery Device Vent Mode Tidal Volume POC PEEP POC Pressure Suppt Sodium Potassium Chloride Carbon Dioxide Anion Gap BUN Creatinine Estim Creat Clear Calc Est GFR (MDRD) Af Amer Est GFR (MDRD) Non-Af BUN/Creatinine Ratio Glucose Calcium Phosphorus Magnesium Troponin I 6.020 H* COVID-19 ([facility]) Not Detected 12/13/19 12/14/19 12/14/19 11:05 03:40 03:40 WBC 10.6 RBC 3.84 L Hgb 12.1 L Hct 39.1 L MCV 101.8 H MCH 31.5 MCHC 30.9 L RDW Std Deviation 54.2 H RDW Coeff of Joseluis 14.6 Plt Count 131 L MPV 11.1 Immature Gran % (Auto) 0.700 Neut % (Auto) 93.3 H Lymph % (Auto) 2.1 L [place] % (Auto) 3.7 Eos % (Auto) 0.1 Baso % (Auto) 0.1 Absolute Neuts (auto) 9.9 H Absolute Lymphs (auto) 0.22 L Nucleated RBC % 0 Differential Comment SCANNED Diff Path Review Polychromasia Macrocytosis RARE Specimen Type ART Sample Site R Brach pH 7.33 L Bicarbonate Actual 28.2 H Total CO2 30 Base Excess 2 O2 Saturation 92 L O2 % 40 ABG pCO2 53.7 H ABG pO2 68 L Respiration Rate 14.0000 O2 Delivery Device Adult Vent Vent Mode AC Tidal Volume 450 POC PEEP 5.0000 POC Pressure Suppt Sodium Potassium Chloride Carbon Dioxide Anion Gap BUN Creatinine Estim Creat Clear Calc Est GFR (MDRD) Af Amer Est GFR (MDRD) Non-Af BUN/Creatinine Ratio Glucose Calcium Phosphorus Magnesium Troponin I 1.580 H* COVID-19 ([facility]) 12/14/19 12/14/19 12/15/19 03:40 05:53 03:45 WBC 8.2 RBC 3.49 L Hgb 10.9 L Hct 35.7 L MCV 102.3 H MCH 31.2 MCHC 30.5 L RDW Std Deviation 55.0 H RDW Coeff of Joseluis 14.8 H Plt Count 116 L MPV 10.5 Immature Gran % (Auto) 0.500 Neut % (Auto) 91.5 H Lymph % (Auto) 2.6 L [place] % (Auto) 5.4 Eos % (Auto) 0.0 Baso % (Auto) 0.0 Absolute Neuts (auto) 7.5 Absolute Lymphs (auto) 0.21 L Nucleated RBC % 0 Differential Comment SCANNED Diff Path Review Polychromasia RARE Macrocytosis 1+ Specimen Type ART Sample Site R Radial pH 7.33 L Bicarbonate Actual 31.5 H Total CO2 33 Base Excess 6 H O2 Saturation 93 L O2 % 35 ABG pCO2 59.8 H ABG pO2 74 L Respiration Rate O2 Delivery Device ET Tube Vent Mode CPAP/PS Tidal Volume POC PEEP 5 POC Pressure Suppt 5 Sodium 138 Potassium 4.3 Chloride 102 Carbon Dioxide 32.0 Anion Gap 4 L BUN 35 H Creatinine 1.52 H Estim Creat Clear Calc 60.27 Est GFR (MDRD) Af Amer 62 Est GFR (MDRD) Non-Af 51 L BUN/Creatinine Ratio 23.0 H Glucose 173 H Calcium 7.9 L Phosphorus 3.4 Magnesium 2.3 Troponin I COVID-19 ([facility]) 12/15/19 03:45 WBC RBC Hgb Hct MCV MCH MCHC RDW Std Deviation RDW Coeff of Joseluis Plt Count MPV Immature Gran % (Auto) Neut % (Auto) Lymph % (Auto) [place] % (Auto) Eos % (Auto) Baso % (Auto) Absolute Neuts (auto) Absolute Lymphs (auto) Nucleated RBC % Differential Comment Diff Path Review Polychromasia Macrocytosis Specimen Type Sample Site pH Bicarbonate Actual Total CO2 Base Excess O2 Saturation O2 % ABG pCO2 ABG pO2 Respiration Rate O2 Delivery Device Vent Mode Tidal Volume POC PEEP POC Pressure Suppt Sodium 140 Potassium 4.5 Chloride 106 Carbon Dioxide 32.0 Anion Gap 2 L BUN 34 H Creatinine 1.08 Estim Creat Clear Calc 84.83 Est GFR (MDRD) Af Amer 91 Est GFR (MDRD) Non-Af 75 BUN/Creatinine Ratio 31.5 H Glucose 126 H Calcium 7.8 L Phosphorus 2.7 Magnesium 2.3 Troponin I COVID-19 ([facility]) Microbiology 12/13/19 04:30 Sputum, Tracheal Aspirate Gram Stain - Final 12/13/19 04:30 Sputum, Tracheal Aspirate Respiratory Culture - Preliminary Gram negative nolberto 12/13/19 08:45 Mucosa - Nasopharyngeal Respiratory Panel (PCR) - Final 12/13/19 05:10 Urine Catheter - Cole Legionella Antigen - Final 12/13/19 05:10 Urine Catheter - Cole Streptococcus pneumoniae Antigen (M - Final Medical Necessity - Tobacco Use Smoking Status: Former smoker Assessment/Plan All Active Problems (Last Reviewed 12/13/19 @ 05:[address] 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 Walking oximetry prior to discharge 2. Appreciate cardiology for recommendations 3. Continue empiric antibiotics, bronchodilators. Transition to prednisone and complete a 5-day burst 4. Await results of heart catheterization 5. Potential discharge planning pending results of heart catheterization 6. Wean oxygen as tolerated. 7. Okay to leave the intensive care unit from my perspective IMPRESSIONS: 1. Acute on chronic hypoxic respiratory failure secondary to possible COPD exacerbation Unclear etiology at this time. Patient does have some cephalization noted on chest x-ray, but no obvious infiltrate. Patient does have advanced emphysematous changes, so infiltrate may be slow to develop. Patient is back to his baseline oxygen requirement. Clinical suspicion for an inability to tolerate metabolic demands from tachycardia leading to respiratory failure. Patient does have what appears to be a UTI, so continue antibiotics for now. Some of pressured speech may be secondary to steroid therapy. Will switch to prednisone and complete a 5-day burst. No change in home respiratory plan would be expected otherwise. 2. SVT/history of valve replacement with lack of anticoagulation Patient receives most of his care at an outside facility. Patient was significant tachycardia on presentation. Patient appears to be responding to Cardizem and beta-hannah well. Cardiology is following and plans a heart catheterization later this morning. Pending the results of the heart catheterization, patient could potentially work on placement to a nursing home facility. 3. Possible septic shock secondary to UTI Patient with elevated lactate, tachycardia and hypoxia. Patient off pressors. Leukocytosis is improved. We will continue with antibiotics for now pending culture results. Likely transition to p.o. once species and sensitivities are available. 4. Seizure disorder/poor historian/advanced COPD Complicates care, management, recovery and prognosis. Unclear CODE STATUS at this time, so proceeding as full code until family can be contacted. Inpatient E&M: [id number] Subs Hosp L3
--- NOTE | 2019-12-15 08:04 | NURSING ---
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
--- NOTE | 2019-12-15 08:55 | CL.D_ITS ---
Patient Name: KAYLEEN AWAD Study Date: 12/15/2019 Performing: Gianfranco Plaza MD Ht: 72 inches 183 cm : 1965 Wt: 200.9 lbs 91 kg Age: 54 Gender: male BSA: 2.13 PROCEDURE(S) PERFORMED [id number] CLINICAL PROFILE AND INDICATIONS Indications: ACS > 24 hrs, Valvular Disease Heart Failure: None Stress/Imaging Stress/Image Study Performed: No Angina Classification Anginal Classification w/in 2 Weeks: Anginal Equivalent Dyspnea CAD Presentations: Non-STEMI. CONCLUSIONS Normal coronary arteries Stable appearing mechanical bileaflet aortic valve prosthesis RECOMMENDATIONS Risk factor modification Medical therapy s/p AVR: anticoagulation per protocol; AHA ATB prophylaxis per protocol DESCRIPTION OF PROCEDURE The patient arrived to the procedure lab. The risks and benefits of the procedure as well as a full d escription of our services here and current unavailability of surgical backup were fully explained to the patient and/or their significant other prior to the catheterization. The Timeout was completed, verifying the correct patient and procedure. The patient's procedural site was prepped and draped in the usual fashion. Local anesthetic was given subcutaneously to right radial region with Lidocaine 2% . Using a modified Seldinger technique, arterial access was obtained via the right radial artery, a 6 Fr sheath was inserted. Left Coronary Artery selective angiography was performed in multiple views u sing a 5 Fr. 4.0 [place] catheter. Right Coronary Artery selective angiography was then performed in mu ltiple views using a 5 Fr. 3DRC (Nomi) catheter. Right Coronary Artery selective angiography was then performed in multiple views using a 5 Fr. JR 4 catheter.The arterial sheath was pulled and a TR Band was applied for hemostasis 11cc air inserted CORONARY ANGIOGRAPHY DOMINANCE: Right Dominant LEFT HEART ASSESSMENT LEFT MAIN: Angiographically normal LEFT ANTERIOR DESCENDING ARTERY: Angiographically normal CIRCUMFLEX ARTERY: Angiographically normal RAMUS: Angiographically normal RIGHT CORONARY ARTERY: Angiographically normal VALVE FINDINGS: Stable appearing mechanical bileaflet aortic valve prosthesis COMPLICATIONS No Complications PROCEDURE MEDICATIONS Fentanyl 50 mcg IV Versed 1 mg IV Oxygen: 3 L/min via nasal cannula Heparin diluted in 23cc Heparinized saline. Patient given 10cc IA of this solution. 12/15/2019 08:10 :48 Verapamil 2.5mg, Ntg 100mcgs, 2000 units of Heparin diluted in 23cc Heparinized saline. Patient give n 10cc IA of this solution. 12/15/2019 08:10:48 SUMMARY OF HEMODYNAMIC DATA Time AIR REST ECG 07:47:36 AO 123/69 (91) SA 08:10:40 Signed By Gianfranco Plaza MD On 12/15/2019 08:55:08 Gianfranco Plaza MD
--- NOTE | 2019-12-15 09:03 | PCM.PN.CARD ---
Subjectve: The patient is awake. He is now status post diagnostic cardiac catheterization via the right radial artery approach. He has no new acute complaints. Objective: Vital Signs Temp Pulse Resp BP Pulse Ox 98.1 F 96 19 H 122/67 H 97 12/15/19 04:00 12/15/19 07:10 12/15/19 07:10 12/15/19 07:00 12/15/19 07:58 Oxygen Flow Rate (L/min) 3 Oxygen Delivery Method Nasal Cannula Weight: 200 lb 9.93 oz Body Mass Index (BMI) 26.9 Intake and Output for Last 24 Hours 12/13/19 12/14/19 12/15/19 23:59 23:59 23:59 Intake Total 2312.12 / 2327.17 1508.61 / 1508.61 290 / 290 Output Total 915 / 915 545 / 545 0 / 0 Balance 1397.12 / 1412.17 963.61 / 963.61 290 / 290 General: Awake, Cooperative, No Acute Distress HEENT: Atraumatic, Normocephalic, PERRL, EOMI, Sclera Non Icteric Neck: Supple, Good ROM Lungs: Clear to auscultation Cardiovascular: Regular Rhythm, Normal S2, Real Prosthetic S1 Abdomen: Bowel Sounds Present, Soft Extremities: No edema 12/15/19 03:45: WBC 8.2, RBC 3.49 L, Hgb 10.9 L, Hct 35.7 L, MCV 102.3 H, MCH 31.2, MCHC 30.5 L, Plt Count 116 L, MPV 10.5, Immature Gran % (Auto) 0.500, Neut % (Auto) 91.5 H, Lymph % (Auto) 2.6 L, [place] % (Auto) 5.4, Eos % (Auto) 0.0, Baso % (Auto) 0.0, Absolute Neuts (auto) 7.5, Nucleated RBC % 0 12/15/19 03:45: Sodium 140, Potassium 4.5, Chloride 106, Carbon Dioxide 32.0, Anion Gap 2 L, BUN 34 H, Creatinine 1.08, Est GFR (MDRD) Af Amer 91, Est GFR (MDRD) Non-Af 75, BUN/Creatinine Ratio 31.5 H, Glucose 126 H, Calcium 7.8 L, Phosphorus 2.7, Magnesium 2.3 Rhythm: Sinus rhythm Cardiac Cath: CONCLUSIONS Normal coronary arteries Stable appearing mechanical bileaflet aortic valve prosthesis RECOMMENDATIONS Risk factor modification Medical therapy s/p AVR: anticoagulation per protocol; AHA ATB prophylaxis per protocol DESCRIPTION OF PROCEDURE The patient arrived to the procedure lab. The risks and benefits of the procedure as well as a full description of our services here and current unavailability of surgical backup were fully explained to the patient and/or their significant other prior to the catheterization. The Timeout was completed, verifying the correct patient and procedure. The patient's procedural site was prepped and draped in the usual fashion. Local anesthetic was given subcutaneously to right radial region with Lidocaine 2%. Using a modified Seldinger technique, arterial access was obtained via the right radial artery, a 6Fr sheath was inserted. Left Coronary Artery selective angiography was performed in multiple views using a 5 Fr. 4.0 Keene catheter. Right Coronary Artery selective angiography was then performed in multiple views using a 5 Fr. 3DRC (Nomi) catheter. Right Coronary Artery selective angiography was then performed in multiple views using a 5 Fr. JR 4 catheter.The arterial sheath was pulled and a TR Band was applied for hemostasis 11cc air inserted CORONARY ANGIOGRAPHY DOMINANCE: Right Dominant LEFT HEART ASSESSMENT LEFT MAIN: Angiographically normal LEFT ANTERIOR DESCENDING ARTERY: Angiographically normal CIRCUMFLEX ARTERY: Angiographically normal RAMUS: Angiographically normal RIGHT CORONARY ARTERY: Angiographically normal VALVE FINDINGS: Stable appearing mechanical bileaflet aortic valve prosthesis Medical Necessity - Tobacco Use Smoking Status: Former smoker Assessment/Plan 1. Acute respiratory distress The patient presented with an acute respiratory failure/distress situation. He has required mechanical intubation/ventilation. He has clinically improved and is now extubated. The etiology may be multifactorial. There are concerns that this may be related to his underlying significant pulmonary disease process. At the moment he is continuing pulmonary evaluation and care. He has undergone additional valuation with diagnostic cardiac catheterization. His mechanical aortic valve prosthesis appears to bileaflet and stable and his coronary arteries appear to be angiographically normal. 2. COPD exacerbation The patient does have significant underlying COPD. There is concerned that he is part of his presentation may be a COPD exacerbation. Thus he will continue evaluation care per pulmonology. 3. Aortic valve replacement Based upon his medical records available there comments that he may have a Saint Srini prosthetic valve-mechanical. According to his sister this valve was his second aortic valve with the first being a bioprosthetic and his current mechanical aortic valve prosthesis being placed in 2012. Based upon his transthoracic echocardiogram his mechanical mitral valve apparatus appears to be stable at this time. He has been placed on anticoagulant therapy in the interim. An attempt will be made to find previous medical records for continuity of care. 4. Status post aortic homograft Again the details of his open heart surgery are unknown at this time. An attempt was made to find his records for continuity of care. 5. Status post VSD closure The patient reported Juan had a VSD closure based upon his past medical records. Again the details are unknown. His echocardiogram does not suggest findings compatible with an ongoing active VSD. 6. Hyperlipidemia The patient reportedly has a history of hyperlipidemia. He can continue evaluation medical therapy as deemed appropriate. 7. Hypertension The patient reportedly has a history of hypertension. His blood pressure appears to have improved. 8. Abnormal cardiac enzymes He has now undergone further evaluation with diagnostic cardiac catheterization. His coronary arteries appear to be angiographically normal. Thus it appears his cardiac enzymes represent a type II event potentially related to his findings of hypoxia and hypotension and subsequent supply demand mismatch. 9. Cardiac dysrhythmia The patient presented with findings concerning for an underlying wide-complex tachycardia. After evaluation there were concerns that this may have been an SVT with his underlying aberrancy versus a sinus tach with his underlying aberrancy. He has been treated as noted above. At the moment he appears to be in a sinus versus rhythm. 10. Learning disability There is report of a learning disability. The details are unknown. This may have a role with respect to the patient's ongoing evaluation and care. Comment: The diagnostic cardiac catheterization results were conveyed to the patient's sister as well as the patient's [facility] medical staff team. This note was generated using a voice recognition system and there may be incorrect words, spelling or punctuation that were not noted when reviewing the office note prior to saving.
[2019-12-15] MEDS: predniSONE 20 MG Tablet 40 MG PO (09:53)
[2019-12-15] MEDS: 0.9% Normal Saline 1,000 ML 75 ML IV (09:54)
[2019-12-15] MEDS: Phenytoin Na 100 MG/2 ML Vial IV (09:54)
[2019-12-15] MEDS: Famotidine 20 MG Tablet PO (09:55)
[2019-12-15] MEDS: guaiFENesin 1,200 MG Tablet 1200 MG PO ×2 (09:55→21:47)
--- NOTE | 2019-12-15 11:40 | CASEMGMT ---
Addendum entered by Zainab Green 12/15/19 13:11: SW faxed referral to [facility]. SW placed a call to [facility] and spoke with Lupis in admissions. Original Note: Social Work Note SW met with pt to continue discussion of discharge plans. Pt is alert and orientated x3. Pt is agreeable to SNF placement, states wherever will take me. SW informed pt that pt's sister Suzette mentioned [facility]. Pt agreeable to referral being sent to [facility]. SW asked pt if had a second choice in the event [facility] is not able to accept pt and pt states again wherever will take me, wherever is close to me, [place], somewhere around here. SW informed pt that this worker will make referral to [facility] and will keep pt and pt's sister Suzette updated. Pt states understanding. [facility]. Pt will likely be ready for discharge tomorrow. Plan: [facility] pending pre-cert Zainab Green GOLF CART REPAIRER, MAGNETO REPAIRER
[2019-12-15] MEDS: levoFLOXacin 750 MG Tablet PO (12:12)
[2019-12-15] MEDS: 0.9% Saline Lock 10 ML Syringe IV (12:12)
[2019-12-15] MEDS: Menthol/Lanolin/Calamine/Znox 113 GM Tube 1 APPLIC TOPICAL ×2 (14:16→21:47)
--- NOTE | 2019-12-15 15:11 | CASEMGMT ---
Social Work Note SW received message from pt's AYO Isidro. Pt has Emergency Response button, [employer] 10x biweekly, [employer] meals Thursday through Thursday, Aide through [employer] , for three hours and , , for two hours. Zainab Green GOVERNMENT EMPLOYEE, VIDEO PLAYER MECHANIC
--- NOTE | 2019-12-15 16:07 | CASEMGMT ---
Addendum entered by Zainab Green 12/15/19 16:55: SW updated pt that [facility]. Pt states understanding. Original Note: Social Work Note SW [facility] SW placed a call to Lupis, answered Lupis's questions. Tabby states [facility] able [facility] pt tomorrow. Plan: [facility] tomorrow Zainab Green MEDICATION AID, LOAN REVIEW ANALYST
--- NOTE | 2019-12-15 17:06 | PN_ITS ---
Patient Problems: Active and Suspected Problems (Last Reviewed 12/13/19 @ 05:[address] Kevin Ziegler, DO) Acute respiratory failure with hypoxia (Acute) COPD exacerbation (Acute) Abnormal cardiac enzyme level (Acute) Cardiac dysrhythmia (Acute) varicose veins (Acute) History of Coumadin therapy (Acute) Iatrogenic pneumothorax (Acute) Alkaline phosphatase elevation (Acute) Cholelithiasis (Acute) Bilateral leg edema (Acute) Eczema of hand (Acute) Hypersomnia (Acute) Shortness of breath (Acute) Subjective: Patient was seen and examined today, he underwent a cardiac catheterization today that showed no occlusive coronary artery disease. I talked with cardiology about his care today, patient is alert at the time of my examination and does not complain of any chest pain or shortness of breath. I change the patient's status to PCU today and started him on warfarin. - Physical Exam Vitals/I&O's: Vital Signs Temp Pulse Resp BP Pulse Ox 98 F 106 H 14 114/56 L 97 12/15/19 12:00 12/15/19 15:15 12/15/19 14:47 12/15/19 12:00 12/15/19 12:00 Oxygen Flow Rate (L/min) 3 Oxygen Delivery Method Nasal Cannula Weight: 91 kg Body Mass Index (BMI) 26.9 Intake and Output for Last 24 Hours 12/13/19 12/14/19 12/15/19 23:59 23:59 23:59 Intake Total 2312.12 / 2327.17 1508.61 / 1508.61 1202.5 / 1202.5 Output Total 915 / 915 545 / 545 0 / 0 Balance 1397.12 / 1412.17 963.61 / 963.61 1202.5 / 1202.5 General: Alert, Oriented x3, Cooperative, No apparent distress, Well developed, - - Patient exhibits mild cognitive deficit HEENT: Atraumatic, PERRLA, EOMI, Normocephalic Oral: Moist Mucosa Neck: Supple, No JVD, Trachea Midline, Thyroid Normal Size and Texture Lungs: Clear to auscultation, Normal air movement, No rhonchi, No wheeze, No rales Cardiovascular: Regular rate, Regular Rhythm, Normal S1, Normal S2, No murmurs, No Ectopic Activity, PMI Normal, No rub noted, No Gallop Abdomen: Bowel Sounds Present, Soft, Non Tender, Non-Distended, No hernias noted Extremities: No clubbing, No cyanosis, Capillary Refill Less than 3 Seconds Skin: No rashes, No breakdown Musculoskeletal: No Tenderness to Palpation of Joints or Extremities Neurological: Cranial nerves II-XII grossly intact, Neuro grossly intact, Sensory exam intact to light touch and pain Psych/Mental Status: Normal Affect, Appropriate, - - Patient exhibits mild cognitive deficit, Alert and oriented to time, place, person, mood and affect Microbiology Past 72 Hours 12/13/19 04:30 Sputum, Tracheal Aspirate Gram Stain - Final 12/13/19 04:30 Sputum, Tracheal Aspirate Respiratory Culture - Final Stenotrophomonas maltophilia 12/13/19 08:30 Blood Culture (Wb) - Central Line Blood Culture - Preliminary No growth in 48 hours. 12/13/19 05:30 Blood Culture (Wb) - Anticubital Right Blood Culture - Preliminary No growth in 48 hours. 12/13/19 08:45 Mucosa - Nasopharyngeal Respiratory Panel (PCR) - Final 12/13/19 05:10 Urine Catheter - Cole Legionella Antigen - Final 12/13/19 05:10 Urine Catheter - Cole Streptococcus pneumoniae Antigen (M - Final Laboratory Results 12/15/19 03:45: WBC 8.2, RBC 3.49 L, Hgb 10.9 L, Hct 35.7 L, MCV 102.3 H, MCH 31.2, MCHC 30.5 L, RDW Std Deviation 55.0 H, RDW Coeff of Joseluis 14.8 H, Plt Count 116 L, MPV 10.5, Immature Gran % (Auto) 0.500, Neut % (Auto) 91.5 H, Lymph % (Auto) 2.6 L, Wheeler % (Auto) 5.4, Eos % (Auto) 0.0, Baso % (Auto) 0.0, Absolute Neuts (auto) 7.5, Absolute Lymphs (auto) 0.21 L, Nucleated RBC % 0, Differential Comment SCANNED, Polychromasia RARE, Macrocytosis 1+ 12/15/19 03:45: Sodium 140, Potassium 4.5, Chloride 106, Carbon Dioxide 32.0, Anion Gap 2 L, BUN 34 H, Creatinine 1.08, Estim Creat Clear Calc 84.83, Est GFR (MDRD) Af Amer 91, Est GFR (MDRD) Non-Af 75, BUN/Creatinine Ratio 31.5 H, Glucose 126 H, Calcium 7.8 L, Phosphorus 2.7, Magnesium 2.3 12/15/19 12:17: PT 13.0, INR 1.0 Current Medications Acetaminophen (Acetaminophen 325 Mg Tablet) 650 mg PO Q4H PRN PRN PRN Reason: Pain Score 1-10 Last Admin: 12/14/19 15:23 Dose: 650 mg Documented by: Albuterol Sulfate (Albuterol 2.5 Mg/3 Ml Vial.Neb.) 2.5 mg INHALATION Q2H PRN PRN PRN Reason: SOB/Wheezing Albuterol/Ipratropium (Ipratropium/Albuterol Sulfate 3 Ml Ampul.Neb) 3 ml INHALATION Q4H.RT [facility] Last Admin: 12/15/19 14:46 Dose: 3 ml Documented by: Aspirin (Aspirin 81 Mg Tab.Chew) 81 mg PO DAILY@0800 [facility] Last Admin: 12/15/19 05:17 Dose: 81 mg Documented by: Calamine/Phenol (Menthol/Lanolin/Calamine/Znox 113 Gm Tube) 1 applic TOPICAL TID [facility]; Protocol Last Admin: 12/15/19 14:16 Dose: 1 applicatio Documented by: Enoxaparin Sodium (Enoxaparin 100 Mg/Ml Syringe) 90 mg SC Q12@0600,1800 [facility] Last Admin: 12/14/19 22:02 Dose: Not Given Documented by: Guaifenesin (Guaifenesin 1,200 Mg Tablet) 1,200 mg PO BID [facility] Last Admin: 12/15/19 09:55 Dose: 1,200 mg Documented by: Sodium Chloride () 250 mls @ 15 mls/hr IV .[id number] PRN PRN Reason: Saline Flush Last Infusion: 12/15/19 12:49 Dose: Infused Documented by: Sodium Chloride () 250 mls @ 15 mls/hr IV .[id number] PRN PRN Reason: Additional IVPB Infusion Sodium Chloride () 1,000 mls @ 0 mls/hr IV .Q0M ERICKA Sodium Chloride () 1,000 mls @ 75 mls/hr IV .[id number] [facility] Last Infusion: 12/15/19 15:00 Dose: 75 mls/hr Documented by: Levofloxacin (Levofloxacin 750 Mg Tablet) 750 mg PO DAILY@0600 [facility] Stop: 12/17/19 06:01 Last Admin: 12/15/19 12:12 Dose: 750 mg Documented by: Metoprolol Tartrate (Metoprolol Tartrate 25 Mg Tablet) 25 mg PO BID [facility] Phenytoin Sodium (Phenytoin Na 100 Mg Capsule) [facility] Last Admin: 12/15/19 12:02 Dose: Not Given Documented by: Prednisone (Prednisone 20 Mg Tablet) 40 mg PO DAILY@0800 [facility] Stop: 12/17/19 08:01 Last Admin: 12/15/19 09:53 Dose: 40 mg Documented by: Sodium Chloride (0.9% Saline Lock 10 Ml Syringe) 10 - 40 ml IV UD PRN PRN Reason: SALINE FLUSH Last Admin: 12/15/19 12:12 Dose: 10 ml Documented by: Warfarin Sodium (Warfarin 4 Mg Tablet) 4 mg PO DAILY@1700 [facility] Medical Necessity - Tobacco Use Smoking Status: Former smoker Assessment/Plan All Active Problems (Last Reviewed 12/13/19 @ 05:[address] Kevin Ziegler, DO) Acute respiratory failure with hypoxia (Acute) COPD exacerbation (Acute) Abnormal cardiac enzyme level (Acute) Cardiac dysrhythmia (Acute) H/O aortic valve replacement (Resolved) S/P VSD repair (Resolved) avr and aortic homograft closure (Resolved) H/O hernia repair (Resolved) varicose veins (Acute) History of Coumadin therapy (Acute) Iatrogenic pneumothorax (Acute) Aortic valve replaced (Resolved) Alkaline phosphatase elevation (Acute) Cholelithiasis (Acute) Bilateral leg edema (Acute) Eczema of hand (Acute) Hypersomnia (Acute) Shortness of breath (Acute) #1 acute on chronic hypoxic respiratory failure from possible COPD exacerbation- patient is currently stable on 3 L nasal cannula, pulmonary medicine is part icipating in his care #2 elevated cardiac enzymes-etiology unclear at this time-patient's cardiac catheterization today showed no evidence of occlusive coronary artery disease. #3 seizure disorder-I started the patient on oral Dilantin today and discontinued his IV Dilantin #4 chronic obstructive pulmonary disease #5 cognitive impairment-chronic #6 possible septic shock-unclear etiology, patient had a gram-negative nolberto in his tracheal aspirate-this grew out stenotrophomonas, pulmonary medicine changed his antibiotic coverage to Levaquin today #7 essential hypertension #8 mechanical aortic valve-patient is currently on Lovenox, patient's warfarin will be restarted today #9 cardiac kiauvidduml-PLI-adkrakl is currently in sinus rhythm Inpatient E&M: 55261 Subs Hosp L2
[2019-12-15] MEDS: Enoxaparin 100 MG/ML Syringe 90 MG SC (17:47)
[2019-12-15] MEDS: Phenytoin Na 100 MG Capsule 200 MG PO (17:47)
[2019-12-15] MEDS: Metoprolol Tartrate 25 MG Tablet PO (21:46)
--- NOTE | 2019-12-15 21:51 | CPS ---
Pt asleep, aerosol not given at 1905 per RN request
[2019-12-16] VITALS (9 sets, daily range): BP systolic 109–148; BP diastolic 65–81; PULSE 77–104; RESP 16–26; TEMP 36.3–36.8; O2SAT 93–97
[2019-12-16] MEDS: Ipratropium/Albuterol Sulfate 3 ML AMPUL.NEB INHALATION ×3 (03:17→11:05)
[2019-12-16 03:36] LABS: Absolute Lymphocyte Count 0.46 X10^3/uL (0.83-4.51); Absolute Neutrophil Count 5.7 X10^3/uL (2.0-7.7); Basophil# 0.01 X10^3/uL; Basophil% 0.1 % (0-1); Eosinophil# 0.02 X10^3/uL; Eosinophils% 0.3 % (0-5); Hematocrit 35.1 % (40-54); Hemoglobin 10.6 g/dL (13.0-16.5); Lymphocyte # 0.46 X10^3/ul (4.0); Lymphocyte % 6.6 % (19-41); Mean Corp Hgb Conc 30.2 g/dL (32-36); Mean Corpuscular Volume 102.6 fL (80-94); Mean Platelet Vol. 10.3 fl (6.2-12.0); Monocyte# 0.78 X10^3/uL; Monocyte% 11.1 % (0-10); NRBC Flagged by Analyzer 0 % (0-5); Neutrophil # 5.69 X10^3/uL (2.7-7.7); Neutrophil % 81.3 % (47-70); POSITIVE DIFFERENTIAL YES; Platelet Count 142 K/mm3 (150-450); RBC Distribution Width SD 56.6 fl (35.1-43.9); Red Blood Count 3.42 M/mm3 (4.6-6.2)
[2019-12-16 03:39] LABS: Differential Indicated SCAN CRITERIA MET
[2019-12-16 03:45] LABS: International Normalized Ratio 1.1
[2019-12-16 03:50] LABS: Anion Gap 1 (5-15); BUN 30 mg/dL (7-18); BUN/Creat Ratio 35.2 RATIO (10-20); Calcium,Total 7.6 mg/dL (8.5-10.1); Chloride 107 mmol/L (98-107); Creatinine, Serum 0.85 mg/dL (0.70-1.30); EST Glomerular Filtration Rate 99 mL/min (>60); Est Glom Filt Rate - Afr Amer 120 mL/min (>60); Estimated Creatinine Clearance 107.78 ml/min; Glucose 96 mg/dL (74-106); Sodium Level 142 mmol/L (136-145)
[2019-12-16 03:59] LABS: Differential Comment SCANNED
[2019-12-16 04:00] LABS: Hypochromasia RARE; Macrocytosis 1+
[2019-12-16] MEDS: levoFLOXacin 750 MG Tablet PO (05:27)
[2019-12-16] MEDS: Enoxaparin 100 MG/ML Syringe 90 MG SC (05:27)
[2019-12-16] MEDS: Menthol/Lanolin/Calamine/Znox 113 GM Tube 1 APPLIC TOPICAL (05:28)
--- NOTE | 2019-12-16 06:16 | PCM.PN.INT ---
Subjective: Patient did well overnight. No acute issues were reported. Patient did report poor sleep, but states this is normal for him in the hospital. No bleeding complications have been reported. General: Alert, Oriented x3, Cooperative, No apparent distress, - - No conversational dyspnea. Odd affect. HEENT: Atraumatic, PERRLA, EOMI, Normocephalic, - - No scleral icterus or injection noted Oral: Moist Mucosa, No Gingival or Mucosal Lesions/ Ulcerations Neck: Supple, No JVD, No Nodes, Trachea Midline Lungs: No rhonchi, No wheeze, No rales, Diminished, - - Symmetric expansion. No dullness to percussion. Cardiovascular: Regular rate, Regular Rhythm, Normal S1, Normal S2, No murmurs, No rub noted, No Gallop Abdomen: Bowel Sounds Present, Soft, Non Tender, Non-Distended Extremities: No clubbing, No cyanosis, No edema, Capillary Refill Less than 3 Seconds Skin: No rashes, No breakdown, - - Radial site is clean, dry and intact Musculoskeletal: No Tenderness to Palpation of Joints or Extremities Lymphatic: No Cervical, Supraclavicular, or Inguinal Adenopathy Neurological: Cranial nerves II-XII grossly intact, Neuro grossly intact, Motor Exam 5/5 strength throughout Psych/Mental Status: Anxious, Restless Vital Signs Temp Pulse Resp BP Pulse Ox 36.6 C 88 22 H 113/65 96 12/16/19 02:27 12/16/19 03:18 12/16/19 03:18 12/16/19 02:27 12/16/19 02:27 Oxygen Flow Rate (L/min) 3 Oxygen Delivery Method Nasal Cannula Weight: 91 kg Body Mass Index (BMI) 26.9 Intake and Output for Last 24 Hours 12/14/19 12/15/19 12/16/19 23:59 23:59 23:59 Intake Total 1508.61 / 1508.61 1308.75 / 1308.75 150 / 150 Output Total 545 / 545 0 / 0 Balance 963.61 / 963.61 1308.75 / 1308.75 150 / 150 Labs (Last 48 Hours) 12/15/19 12/15/19 12/15/19 03:45 03:45 12:17 WBC 8.2 RBC 3.49 L Hgb 10.9 L Hct 35.7 L MCV 102.3 H MCH 31.2 MCHC 30.5 L RDW Std Deviation 55.0 H RDW Coeff of Joseluis 14.8 H Plt Count 116 L MPV 10.5 Immature Gran % (Auto) 0.500 Neut % (Auto) 91.5 H Lymph % (Auto) 2.6 L [place] % (Auto) 5.4 Eos % (Auto) 0.0 Baso % (Auto) 0.0 Absolute Neuts (auto) 7.5 Absolute Lymphs (auto) 0.21 L Nucleated RBC % 0 Differential Comment SCANNED Polychromasia RARE Hypochromasia Macrocytosis 1+ PT 13.0 INR 1.0 Sodium 140 Potassium 4.5 Chloride 106 Carbon Dioxide 32.0 Anion Gap 2 L BUN 34 H Creatinine 1.08 Estim Creat Clear Calc 84.83 Est GFR (MDRD) Af Amer 91 Est GFR (MDRD) Non-Af 75 BUN/Creatinine Ratio 31.5 H Glucose 126 H Calcium 7.8 L Phosphorus 2.7 Magnesium 2.3 12/16/19 12/16/19 12/16/19 03:27 03:27 03:27 WBC 7.0 RBC 3.42 L Hgb 10.6 L Hct 35.1 L MCV 102.6 H MCH 31.0 MCHC 30.2 L RDW Std Deviation 56.6 H RDW Coeff of Joseluis 15.0 H Plt Count 142 L MPV 10.3 Immature Gran % (Auto) 0.600 Neut % (Auto) 81.3 H Lymph % (Auto) 6.6 L [place]linger % (Auto) 11.1 H Eos % (Auto) 0.3 Baso % (Auto) 0.1 Absolute Neuts (auto) 5.7 Absolute Lymphs (auto) 0.46 L Nucleated RBC % 0 Differential Comment SCANNED Polychromasia Hypochromasia RARE Macrocytosis 1+ PT 14.0 INR 1.1 Sodium 142 Potassium 4.0 Chloride 107 Carbon Dioxide 34.0 H Anion Gap 1 L BUN 30 H Creatinine 0.85 Estim Creat Clear Calc 107.78 Est GFR (MDRD) Af Amer 120 Est GFR (MDRD) Non-Af 99 BUN/Creatinine Ratio 35.2 H Glucose 96 Calcium 7.6 L Phosphorus Magnesium Microbiology 12/13/19 04:30 Sputum, Tracheal Aspirate Gram Stain - Final 12/13/19 04:30 Sputum, Tracheal Aspirate Respiratory Culture - Final Stenotrophomonas maltophilia 12/13/19 08:30 Blood Culture (Wb) - Central Line Blood Culture - Preliminary No growth in 48 hours. 12/13/19 05:30 Blood Culture (Wb) - Anticubital Right Blood Culture - Preliminary No growth in 48 hours. Medical Necessity - Tobacco Use Smoking Status: Former smoker Assessment/Plan All Active Problems (Last Reviewed 12/13/19 @ 05:[address] 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 Walking oximetry prior to discharge 2. Appreciate cardiology for recommendations 3. Continue empiric antibiotics, bronchodilators. Complete prednisone 5-day burst 4. Okay to discharge from a pulmonary perspective 5. Routine follow-up with pulmonary upon discharge 6. Wean oxygen as tolerated. IMPRESSIONS: 1. Acute on chronic hypoxic respiratory failure secondary to possible COPD exacerbation Unclear etiology at this time. Patient does have some cephalization noted on chest x-ray, but no obvious infiltrate. Patient does have advanced emphysematous changes, so infiltrate may be slow to develop. Patient is back to his baseline oxygen requirement. Clinical suspicion for an inability to tolerate metabolic demands from tachycardia leading to respiratory failure. Patient does have what appears to be a UTI, so continue antibiotics for now. Some of pressured speech may be secondary to steroid therapy. Complete prednisone 5-day burst. No change in home respiratory plan would be expected otherwise. Routine follow-up with the pulmonary office is appropriate 2. SVT/history of valve replacement with lack of anticoagulation Patient receives most of his care at an outside facility. Patient was significant tachycardia on presentation. Patient appears to be responding to Cardizem and beta-hannah well. Cardiology reports heart catheterization is unremarkable. Patient currently undergoing Coumadin therapy to become therapeutic. 3. Possible septic shock secondary to UTI Patient with elevated lactate, tachycardia and hypoxia. Patient off pressors. Leukocytosis is improved. Complete 7 days of total antibiotics 4. Seizure disorder/poor historian/advanced COPD Complicates care, management, recovery and prognosis. Inpatient E&M: 50223 Subs Hosp L2
[2019-12-16] MEDS: Phenytoin Na 100 MG Capsule 200 MG PO (08:03)
[2019-12-16] MEDS: Aspirin 81 MG TAB.CHEW PO (08:03)
[2019-12-16] MEDS: predniSONE 20 MG Tablet 40 MG PO (08:04)
[2019-12-16] MEDS: guaiFENesin 1,200 MG Tablet 1200 MG PO (08:04)
[2019-12-16] MEDS: Metoprolol Tartrate 25 MG Tablet PO (08:08)
[2019-12-16] MEDS: 0.9% Saline Lock 10 ML Syringe IV (08:14)
--- NOTE | 2019-12-16 11:40 | PCM.TXEXTCAR ---
- Diet 12/15/19 08:44 Diet: Cardiac - regular Is pt able to select menu?: Yes - Routine Orders/Code Status O2 Liters per Minute: 3 O2 Frequency: Continuous Keep PO Greater than or Equal to (%): 90 Routine Lab Work: INR - daily until INR reaches 2.5, then weekly - Wound(s) R radial Wound Type: Surgical Incision - Therapies Weight Bearing: Full weight bearing Physical Therapy: Eval and Treat Occupational Therapy: Eval and Treat - Problem/Diagnosis (1) Acute respiratory failure with hypoxia Status: Acute (2) COPD exacerbation Status: Acute (3) Learning disability Status: Chronic (4) HTN (hypertension) Status: Chronic (5) Aortic valve disease Status: Chronic Comment: mechanical heart valve (6) GERD (gastroesophageal reflux disease) Status: Chronic (7) History of Coumadin therapy Status: Chronic (8) Mood disorder Status: Chronic (9) SVT (supraventricular tachycardia) Status: Acute (10) Seizure disorder Status: Chronic - Allergies/Procedures Done in Hospital Allergies/Adverse Reactions: Allergies No Known Allergies Allergy (Verified 11/03/18 13:19) Procedures: 2-D Echocardiogram, Cardiac catheterization - Type of Care/Length of Stay Estimated LOS: Convalescent Care Less Than 30 days Type of Care Needed: Skilled Rehab Potential: Good Prognosis: Good - Additional Orders/Day of Discharge H&P will serve as current which was dated: 12/13/19 Day of Discharge: 12/16/19 - Follow Up Care Primary Care Physician: Jason Leal DO [Primary Care Provider] - Please Follow Up With: Mark Marlow DO When: in 2 weeks
[2019-12-16] MEDS: Acetaminophen 325 MG Tablet 650 MG PO (12:18)
--- NOTE | 2019-12-16 12:18 | PN.CARD_ITS ---
Subjectve: The patient was evaluated earlier this day. He denied any ongoing acute symptoms. Objective: Vital Signs Temp Pulse Resp BP Pulse Ox 97.4 F L 79 16 148/81 H 96 12/16/19 08:08 12/16/19 11:05 12/16/19 11:05 12/16/19 08:08 12/16/19 08:08 Oxygen Flow Rate (L/min) 3 Oxygen Delivery Method Nasal Cannula Weight: 200 lb 9.93 oz Body Mass Index (BMI) 26.9 Intake and Output for Last 24 Hours 12/14/19 12/15/19 12/16/19 23:59 23:59 23:59 Intake Total 1508.61 / 1508.61 1308.75 / 1308.75 150 / 150 Output Total 545 / 545 0 / 0 Balance 963.61 / 963.61 1308.75 / 1308.75 150 / 150 General: Awake, Cooperative, No Acute Distress HEENT: Atraumatic, Normocephalic Neck: Supple, Good ROM, No JVD Lungs: Clear to auscultation Cardiovascular: Regular Rhythm, Normal S2, [place] Prosthetic S1 Abdomen: Bowel Sounds Present, Soft Psych/Mental Status: Appropriate 12/15/19 12:17: PT 13.0, INR 1.0 12/16/19 03:27: WBC 7.0, RBC 3.42 L, Hgb 10.6 L, Hct 35.1 L, MCV 102.6 H, MCH 31.0, MCHC 30.2 L, Plt Count 142 L, MPV 10.3, Immature Gran % (Auto) 0.600, Neut % (Auto) 81.3 H, Lymph % (Auto) 6.6 L, [place] % (Auto) 11.1 H, Eos % (Auto) 0.3, Baso % (Auto) 0.1, Absolute Neuts (auto) 5.7, Nucleated RBC % 0 12/16/19 03:27: Sodium 142, Potassium 4.0, Chloride 107, Carbon Dioxide 34.0 H, Anion Gap 1 L, BUN 30 H, Creatinine 0.85, Est GFR (MDRD) Af Amer 120, Est GFR (MDRD) Non-Af 99, BUN/Creatinine Ratio 35.2 H, Glucose 96, Calcium 7.6 L 12/16/19 03:27: PT 14.0, INR 1.1 Rhythm: Sinus rhythm Medical Necessity - Tobacco Use Smoking Status: Former smoker Assessment/Plan 1. Acute respiratory distress The patient presented with an acute respiratory failure/distress situation. He has required mechanical intubation/ventilation. He has clinically improved and is now extubated. The etiology may be multifactorial. There are concerns that this may be related to his underlying significant pulmonary disease process. At the moment he is continuing pulmonary evaluation and care. He has undergone additional valuation with diagnostic cardiac catheterization. His mechanical aortic valve prosthesis appears to bileaflet and stable and his coronary arteries appear to be angiographically normal. 2. COPD exacerbation The patient does have significant underlying COPD. There is concerned that he is part of his presentation may be a COPD exacerbation. Thus he will continue evaluation care per pulmonology. 3. Aortic valve replacement Based upon his medical records available there comments that he may have a [place] prosthetic valve-mechanical. According to his sister this valve was his second aortic valve with the first being a bioprosthetic and his current mechanical aortic valve prosthesis being placed in 2012. Based upon his transthoracic echocardiogram his mechanical arctic valve apparatus appears to be stable at this time. Based upon his cardiac catheterization fluoroscopic images his mechanical aortic valve apparatus appears to be able and functioning appropriately. 4. Status post aortic homograft Again the details of his open heart surgery are unknown at this time. An attempt was made to find his records for continuity of care. 5. Status post VSD closure The patient reported Juan had a VSD closure based upon his past medical records. Again the details are unknown. His echocardiogram does not suggest findings compatible with an ongoing active VSD. 6. Hyperlipidemia The patient reportedly has a history of hyperlipidemia. He can continue evaluation medical therapy as deemed appropriate. 7. Hypertension The patient reportedly has a history of hypertension. His blood pressure appears to have improved. 8. Abnormal cardiac enzymes He has now undergone further evaluation with diagnostic cardiac catheterization. His coronary arteries appear to be angiographically normal. Thus it appears his cardiac enzymes represent a type II event potentially related to his findings of hypoxia and hypotension and subsequent supply demand mismatch. 9. Cardiac dysrhythmia The patient presented with findings concerning for an underlying wide-complex tachycardia. After evaluation there were concerns that this may have been an SVT with his underlying aberrancy versus a sinus tach with his underlying aberrancy. He has been treated as noted above. At the moment he appears to be in a sinus versus rhythm. 10. Learning disability There is report of a learning disability. The details are unknown. This may have a role with respect to the patient's ongoing evaluation and care. Overall, the present time, the patient will continue conservative cardiovascular medical therapy as deemed appropriate. Comment: Patient's case has been discussed and reviewed with Dr. Rizvi. This note was generated using a voice recognition system and there may be incorrect words, spelling or punctuation that were not noted when reviewing the office note prior to saving.
--- NOTE | 2019-12-16 12:26 | CASEMGMT ---
Addendum entered by Genie Wright 12/16/19 12:34: SW left VM with Mariola Isidro, [employer] customer program manager, regarding pt discharge to SNF. WILDER [place] Original Note: Social Work Physician stating pt is ready for discharge today. Pt and sister made aware that [facility] is able to accept and pt will be discharge today. Orders and 7000 completed and faxed to [facility]. [facility] for 1:30 pickup. Tabby at [facility], pt sister and RN notified of d/c time. WILDER [place]
--- NOTE | 2019-12-16 17:04 | DS.PCM_ITS ---
Discharge Date and Diagnosis - Problem List Patient Problems: Active and Suspected Problems (Last Reviewed 12/13/19 @ 05:[address] Kevin Ziegler DO) SVT (supraventricular tachycardia) (Acute) Acute respiratory failure with hypoxia (Acute) COPD exacerbation (Acute) Abnormal cardiac enzyme level (Acute) Cardiac dysrhythmia (Acute) varicose veins (Acute) Iatrogenic pneumothorax (Acute) Alkaline phosphatase elevation (Acute) Cholelithiasis (Acute) Bilateral leg edema (Acute) Eczema of hand (Acute) Hypersomnia (Acute) Shortness of breath (Acute) Date of Admission: 12/13/19 Date of Discharge: 12/16/19 - Primary Discharge Diagnosis Acute Problems: Active Problems (Last Reviewed 12/13/19 @ 05:[address] Kevin Ziegler DO) #1 acute on chronic hypoxic respiratory failure from possible COPD exacerbation #2 elevated cardiac enzymes-etiology unclear at this time #3 seizure disorder #4 chronic obstructive pulmonary disease #5 cognitive impairment-chronic #6 possible septic shock-unclear etiology, patient had a gram-negative nolberto in his tracheal aspirate-this grew out stenotrophomonas #7 essential hypertension #8 mechanical aortic valve #9 cardiac [id number] is currently in sinus rhythm - Secondary Discharge Diagnosis Chronic Problems: Chronic Problems (Last Reviewed 12/13/19 @ 05:[address] 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) DVT (deep venous thrombosis) (Chronic) Learning disability (Chronic) Hyperlipidemia (Chronic) HTN (hypertension) (Chronic) Aortic valve disease (Chronic) mechanical heart valve Ventricular septal defect (Chronic) Seizure disorder (Chronic) GERD (gastroesophageal reflux disease) (Chronic) COPD (chronic obstructive pulmonary disease) (Chronic) History of Coumadin therapy (Chronic) Mood disorder (Chronic) Obesity (Chronic) Hypoxemic respiratory failure, chronic (Chronic) Hospital Course and Treatment Operations: None Procedures: 2-D Echocardiogram, Cardiac catheterization Summary of Care Provided: The patient is a 54 year old M who presented to the [facility] ED and was noted to be hypoxic on room air, a nonrebreather was attempted and the patient was not improving and then BiPAP was tried-patient did not tolerate BiPAP and he was then placed on a nonrebreather again. They finally decided to intubate the patient and requested transfer to the ICU at [facility]. When patient reached the hospital, [facility] was called and there was concern for ventricular tachycardia, patient received 100 J of defibrillation with did not have an effect., Patient was then given adenosine 6 mg and 12 mg, he was noted to be tachycardic afterwards and placed on a Cardizem bolus and drip. Patient was admitted to ICU and was seen by critical care and cardiology. He was felt to have acute hypoxic respiratory failure from probable exacerbation of COPD, and hypotension and was placed on pressor agents. Patient was treated with IV antibiotics and fluids, cardiology felt that the patient may have had an episode of SVT and not ventricular tachycardia. Patient was eventually extubated and his condition stabilized, sputum grew out stenotrophomonas, and cardiology performed an echocardiogram which showed a normal EF, patient then underwent a cardiac catheterization which showed normal coronary arteries. Patient was seen by PT and OT and patient agreed to go to an extended care facility for inpatient rehab services. On 12/16/2019, patient was seen and examined:General: Alert, Oriented x3, Cooperative, No apparent distress, Well developed, - - Patient exhibits mild cognitive deficit HEENT: Atraumatic, PERRLA, EOMI, Normocephalic Oral: Moist Mucosa Neck: Supple, No JVD, Trachea Midline, Thyroid Normal Size and Texture Lungs: Clear to auscultation, Normal air movement, No rhonchi, No wheeze, No rales Cardiovascular: Regular rate, Regular Rhythm, Normal S1, Normal S2, No murmurs, No Ectopic Activity, PMI Normal, No rub noted, No Gallop Abdomen: Bowel Sounds Present, Soft, Non Tender, Non-Distended, No hernias noted Extremities: No clubbing, No cyanosis, Capillary Refill Less than 3 Seconds Skin: No rashes, No breakdown Musculoskeletal: No Tenderness to Palpation of Joints or Extremities Neurological: Cranial nerves II-XII grossly intact, Neuro grossly intact, Sensory exam intact to light touch and pain Psych/Mental Status: Normal Affect, Appropriate, - - Patient exhibits mild cognitive deficit, Alert and oriented to time, place, person, mood and affect On 12/16/2019, patient was discharged in stable condition to an extended care facility for rehab services. Patient Problems: Active and Suspected Problems (Last Reviewed 12/13/19 @ 05:[address] Kevin Ziegler, DO) SVT (supraventricular tachycardia) (Acute) Acute respiratory failure with hypoxia (Acute) COPD exacerbation (Acute) Abnormal cardiac enzyme level (Acute) Cardiac dysrhythmia (Acute) varicose veins (Acute) Iatrogenic pneumothorax (Acute) Alkaline phosphatase elevation (Acute) Cholelithiasis (Acute) Bilateral leg edema (Acute) Eczema of hand (Acute) Hypersomnia (Acute) Shortness of breath (Acute) - Physical Exam Vitals/I&O's: Vital Signs Temp Pulse Resp BP Pulse Ox 98.3 F 92 20 H 109/71 93 12/16/19 12:51 12/16/19 12:51 12/16/19 12:51 12/16/19 12:51 12/16/19 12:51 Oxygen Flow Rate (L/min) 3 Oxygen Delivery Method Nasal Cannula Weight: 91 kg Body Mass Index (BMI) 26.9 Intake and Output for Last 24 Hours 12/14/19 12/15/19 12/16/19 23:59 23:59 23:59 Intake Total 1508.61 / 1508.61 1308.75 / 1308.75 150 / 150 Output Total 545 / 545 0 / 0 Balance 963.61 / 963.61 1308.75 / 1308.75 150 / 150 Microbiology Past 72 Hours 12/13/19 04:30 Sputum, Tracheal Aspirate Gram Stain - Final 12/13/19 04:30 Sputum, Tracheal Aspirate Respiratory Culture - Final Stenotrophomonas maltophilia 12/13/19 08:30 Blood Culture (Wb) - Central Line Blood Culture - Preliminary No growth in 48 hours. 12/13/19 05:30 Blood Culture (Wb) - Anticubital Right Blood Culture - Preliminary No growth in 48 hours. Laboratory Results 12/16/19 03:27: WBC 7.0, RBC 3.42 L, Hgb 10.6 L, Hct 35.1 L, MCV 102.6 H, MCH 31.0, MCHC 30.2 L, RDW Std Deviation 56.6 H, RDW Coeff of Joseluis 15.0 H, Plt Count 142 L, MPV 10.3, Immature Gran % (Auto) 0.600, Neut % (Auto) 81.3 H, Lymph % (Auto) 6.6 L, [place] % (Auto) 11.1 H, Eos % (Auto) 0.3, Baso % (Auto) 0.1, Absolute Neuts (auto) 5.7, Absolute Lymphs (auto) 0.46 L, Nucleated RBC % 0, Differential Comment SCANNED, Hypochromasia RARE, Macrocytosis 1+ 12/16/19 03:27: Sodium 142, Potassium 4.0, Chloride 107, Carbon Dioxide 34.0 H, Anion Gap 1 L, BUN 30 H, Creatinine 0.85, Estim Creat Clear Calc 107.78, Est GFR (MDRD) Af Amer 120, Est GFR (MDRD) Non-Af 99, BUN/Creatinine Ratio 35.2 H, Glucose 96, Calcium 7.6 L 12/16/19 03:27: PT 14.0, INR 1.1 Home Medications: Medications to take at Discharge Albuterol Aerosols [Ventolin Aerosols] 2.5 mg INHALATION Q4H PRN PRN 04/05/16 Oxygen, Home [Home Oxygen] 2 - 4 lpm NASAL DAILY 04/05/16 Phenytoin Na [Dilantin] 100 mg PO BID 04/05/16 Phenytoin Sodium Extended [Dilantin] 200 mg PO QHS 04/06/16 Warfarin [Coumadin] 4 mg PO DAILY@1700 tab 04/07/16 aspirin 81 mg tablet,delayed release 81 mg PO QDAY 03/17/17 multivitamin 1 tab PO QDAY 03/17/17 fluticasone fur. 100 mcg-umeclid 62.5 mcg-vilant 25 mcg inhalat.powder 1 inh INHALATION DAILY #1 ea 11/15/19 Enoxaparin [Lovenox] 90 mg SC Q12@0600,1800 #1 syringe 12/16/19 Metoprolol Tartrate [Lopressor (beta hannah)] 25 mg PO BID tab 12/16/19 Warfarin [Coumadin] 4 mg PO DAILY@1700 tab 12/16/19 levoFLOXacin tablet [Levaquin tablet] 750 mg PO DAILY@0600 #4 tab 12/16/19 predniSONE tablet 40 mg PO DAILY@0800 #14 tab 12/16/19 Following Prescriptions Were Given to Patient: levoFLOXacin tablet [Levaquin tablet] 750 mg PO DAILY@0600 #4 tab predniSONE tablet 40 mg PO DAILY@0800 #14 tab Primary Care Physician: Jason Leal DO [Primary Care Provider] - Please Follow Up With: Mark Marlow DO When: in 2 weeks Disposition: Assisted facility Minutes spent on discharge:: 32 Patient Condition:: Stable Medical Necessity - Tobacco Use Smoking Status: Former smoker Meaningful Use Info Meaningful Use Diagnoses (Choose all that apply): None applicable Inpatient E&M: 14995 Disch Hosp
== END 2019-12-16 13:20 | disposition skilled nursing facility (03) | DRG 871 ==
PROVIDERS: Internal Medicine; Internal Medicine Cardiovascular Disease; Internal Medicine Critical Care Medicine; PCP Family Medicine; Visit Provider Internal Medicine
DX: A41.50 Gram-negative sepsis, unspecified (principal); J96.21 Acute and chronic respiratory failure with hypoxia; R65.21 Severe sepsis with septic shock; J44.1 Chronic obstructive pulmonary disease with (acute) exacerbation; I47.1 Supraventricular tachycardia; N39.0 Urinary tract infection, site not specified; B96.89 Other specified bacterial agents as the cause of diseases classified elsewhere; I95.2 Hypotension due to drugs; T41.295A Adverse effect of other general anesthetics, initial encounter; Y92.9 Unspecified place or not applicable; G40.909 Epilepsy, unspecified, not intractable, without status epilepticus; R74.8 Abnormal levels of other serum enzymes; G31.84 Mild cognitive impairment of uncertain or unknown etiology; I10 Essential (primary) hypertension; E66.9 Obesity, unspecified; Z68.26 Body mass index [BMI] 26.0-26.9, adult; Z87.891 Personal history of nicotine dependence; K21.9 Gastro-esophageal reflux disease without esophagitis; I83.90 Asymptomatic varicose veins of unspecified lower extremity; E78.5 Hyperlipidemia, unspecified; Z87.74 Personal history of (corrected) congenital malformations of heart and circulatory system; Z87.01 Personal history of pneumonia (recurrent); F81.9 Developmental disorder of scholastic skills, unspecified; Z79.82 Long term (current) use of aspirin; Z79.899 Other long term (current) drug therapy; Z95.2 Presence of prosthetic heart valve; Z86.718 Personal history of other venous thrombosis and embolism; Z87.19 Personal history of other diseases of the digestive system; Z79.01 Long term (current) use of anticoagulants
CPT/HCPCS: 31720; 36600; 71045; 80048; 80053; 82550; 82803; 83605; 83735; 84100; 84443; 84478; 84484; 85025; 85610; 87040; 87070; 87077; 87186; 87205; 87449; 87633; 87635; 92950; 93005; 93306; 93454; 94002; 94003; 94640; 94660; 97116; 97162; 97166; 97530; 97535; 97802; 97803; 99152; 99153; J7030; J7040; J7050; A4216; C1751; C1769; C1894; J0153; J3010; J3490; Q9967; U0003

== ENCOUNTER → 2020-09-20 10:56 | Outpatient (CLI) | payer MEDICARE, MEDICAID, SELFPAY ==
[2020-08-30 09:16] VITALS: BMI 27.3
--- NOTE | 2020-09-20 10:57 | MRI_ITS ---
EXAM: MR HEAD WITHOUT AND WITH INTRAVENOUS CONTRAST : 1965 CLINICAL INDICATION: Epilepsy TECHNIQUE: Multiplanar and multisequence MR images of the brain were obtained without and with intravenous contrast. This report was created using [employer] report [employer] technology. CONTRAST: IV 17ml Dotarem COMPARISON: September 14, 2012 FINDINGS: BRAIN AND EXTRA-AXIAL SPACES: The mild cerebellar atrophy is unchanged. No intra- or extra-axial hemorrhage. No evidence of acute infarct. No intracranial mass or mass effect. There is preservation of the hunter/white matter interface. No hydrocephalus. Basal cisterns are patent. SELLA: Unremarkable. Normal sella turcica, pituitary gland, infundibular stalk, optic chiasm and hypothalamus. AUDITORY SYSTEM: Unremarkable. The internal auditory canals are patent. BONES/JOINTS: Unremarkable. No discrete lytic or blastic abnormalities. SINUSES: Opacification of the paranasal sinuses again noted. MASTOID AIR CELLS: Unremarkable as visualized. Clear. ORBITS: Unremarkable as visualized. Both globes, extraocular muscles, optic nerves and retrobulbar fat appear unremarkable. VASCULATURE: Unremarkable as visualized. Normal flow voids in the major intracranial circulation. OTHER FINDINGS: No abnormal contrast enhancement. MRI/Brain W/WO Contrast IMPRESSION: 1. No acute intracranial abnormality. 2. Stable mild cerebellar atrophy. 3. Persistent opacification of the mastoid sinuses. at 1403 Reported and signed by: Juliano Denise MD Electronically Signed: Juliano Denise MD at 14:01 EDT Tel , Service support ,
== END ==
PROVIDERS: PCP Family Medicine; Referring Provider Psychiatry & Neurology Neurology; Visit Provider Psychiatry & Neurology Neurology
DX: G40.909 Epilepsy, unspecified, not intractable, without status epilepticus (principal); F81.9 Developmental disorder of scholastic skills, unspecified
CPT/HCPCS: 70553; A9575

== ENCOUNTER 2020-10-26 10:19 | Emergency (ER) | payer MEDICARE, MEDICAID, SELFPAY ==
[2020-10-26 10:20] VITALS: BP 169/95; PULSE 87; RESP 18; TEMP 36.6; O2SAT 99; BMI 27.6
[2020-10-26 10:29] VITALS: BP 169/95; PULSE 86; RESP 18; O2SAT 97; O2SAT 99
--- NOTE | 2020-10-26 10:37 | EKG12_ITS ---
Test Reason : SOB Blood Pressure : / mmHG Vent. Rate : 083 BPM Atrial Rate : 083 BPM P-R Int : 174 ms QRS Dur : 170 ms QT Int : 436 ms P-R-T Axes : 059 -75 081 degrees QTc Int : 512 ms Normal sinus rhythm Left axis deviation Right bundle branch block T wave abnormality, consider lateral ischemia Abnormal ECG Confirmed by MANJU HEARD, ANASTASIYA ([id number]), book or script editor JAIDEN KANG ([id number]) on 10/29/2020 12:46:41 PM Referred By: ELIZABETH Confirmed By:ANASTASIYA NUNES MD
--- NOTE | 2020-10-26 10:37 | RAD_ITS ---
STUDY: X-RAY CHEST REASON FOR EXAM: Male, 55 years old. Increasing shortness of breath and chest pain. Lower extremity edema. TECHNIQUE: Single AP portable view of the chest. COMPARISON: Comparison is made with prior study dated 12/13/2019. FINDINGS: EKG electrodes are seen. There is hyperinflation of the lungs consistent with chronic obstructive lung disease (COPD). Mild degree of increased markings at the left lung base suggestive of possible scarring. There is no demonstrated pleural abnormality. Sternal cerclage wires and vascular clips are present from a prior sternotomy and coronary artery bypass graft procedure (CABG). Mild thyromegaly. Normal mediastinum and joselito. There is prominence of the pulmonary hilar arteries without peripheral pulmonary vascular congestion, suggesting pulmonary hypertension. Normal visualized aortic arch and descending thoracic aorta. Normal visualized thoracic spine. Normal visualized ribs, clavicles, and shoulders. There is no demonstrated abnormality of the visualized soft tissue structures of the upper abdomen. RAD/Chest 1 View (Portable) IMPRESSION: Hyperinflation. Prior CABG. Findings suggestive of possible scarring at the left lung base. Electronically Signed: Eleuterio Linda MD at 11:17 EDT , Service support ,
--- NOTE | 2020-10-26 10:38 | ED.VIS.DYS ---
HPI History of Present Illness Chief Complaint: Shortness of Breath Informant: patient Onset/Context/Timing Onset: Today Timing: Continuous Current Severity: Mild Maximum Severity: Mild Associated Symptoms cough Chest Pain: Positive for None Narrative Narrative: 55-year-old male history congestive heart failure with a prosthetic heart valve. He is on Coumadin. He has been more short of breath today. Denies chest pain or fever. He has had a nonproductive cough. States he does have swelling in his legs more than baseline. PE Risk Factors: Negative for Cancer, OCP + Smoking + > 35, Prior DVT or PE, Recent immobilization, Recent surgery and Recent travel Prior similar symptoms: Yes Recent Illness/Hospitalization: No PFSH [facility], LATER [facility] Medical History (Updated 10/26/20 @ 12:[address] Christiano Dalton MD) Alkaline phosphatase elevation Aortic valve disease Bilateral leg edema Cholelithiasis Chronic hypoxemic respiratory failure COPD (chronic obstructive pulmonary disease) DVT (deep venous thrombosis) Eczema of hand GERD (gastroesophageal reflux disease) History of Coumadin therapy HTN (hypertension) Hyperlipidemia Hypersomnia Hypersomnia Hypoxemic respiratory failure, chronic Iatrogenic pneumothorax Learning disability Mixed obstructive and restrictive ventilatory defect Mood disorder Obesity Seizure disorder Shortness of breath varicose veins Ventricular septal defect Home Medications Oxygen, Home [Home Oxygen] 2 - 4 lpm NASAL DAILY 04/05/16 [History Last Taken Unknown] albuterol sulfate 2.5 mg INHALATION Q4H PRN PRN 04/05/16 [History Last Taken Unknown] aspirin 81 mg tablet,delayed release 81 mg PO QDAY 03/17/17 [History Last Taken Unknown] multivitamin 1 tab PO QDAY 03/17/17 [History Last Taken Unknown] acetaminophen 325 mg tablet 325 mg PO Q6H PRN tab 01/04/20 [History Last Taken Unknown] vitamin B complex 1 tab PO DAILY 01/04/20 [History Last Taken Unknown] aluminum-mag hydroxide-simethicone 200 mg-200 mg-20 mg/5 mL oral susp 30 ml PO Q4H PRN ml 04/18/20 [History Last Taken Unknown] ascorbate calcium (vitamin C) 500 mg tablet 500 mg PO DAILY 04/18/20 [History Last Taken Unknown] bupropion HCl 150 mg tablet,12 hr sustained-release 150 mg PO DAILY 04/18/20 [History Last Taken Unknown] calcium carbonate 500 mg calcium (1,250 mg) chewable tablet 500 mg PO DAILY 04/18/20 [History Last Taken Unknown] cetirizine 10 mg capsule 10 mg PO DAILY PRN 04/18/20 [History Last Taken Unknown] cholecalciferol (vitamin D3) 125 mcg (5,000 unit) capsule 125 mcg PO DAILY 04/18/20 [History Last Taken Unknown] escitalopram oxalate 5 mg tablet 10 mg PO DAILY tab 04/18/20 [History Last Taken Unknown] ferrous sulfate 325 mg (65 mg iron) tablet 325 mg PO BID 04/18/20 [History Last Taken Unknown] guaifenesin 100 mg/5 mL oral syrup 100 mg PO Q4H PRN 04/18/20 [History Last Taken Unknown] melatonin 3 mg capsule 6 mg PO HS PRN cap 04/18/20 [History Last Taken Unknown] pantoprazole 20 mg tablet,delayed release 20 mg PO DAILY 04/18/20 [History Last Taken Unknown] tramadol 50 mg tablet 50 mg PO Q6H PRN 04/18/20 [History Last Taken Unknown] warfarin 4 mg tablet 4 mg PO DAILY@1700 tab 04/18/20 [History Last Taken Unknown] warfarin 5 mg tablet 5 mg PO QMWF 04/18/20 [History Last Taken Unknown] phenytoin sodium extended 100 mg capsule 100 mg PO TID #90 cap 08/30/20 [Rx Last Taken Unknown] metoprolol tartrate 25 mg tablet 37.5 mg PO BID #270 tab 09/24/20 [Rx Last Taken Unknown] fluticasone fur. 200 mcg-umeclid 62.5 mcg-vilant 25 mcg inhalat.powder 1 inh INHALATION DAILY #60 ea 10/16/20 [Rx Last Taken Unknown] furosemide 40 mg PO DAILY 10/26/20 [History Last Taken Unknown] Allergy/AdvReac Type Severity Reaction Status Date / Time No Known Allergies Allergy Verified 10/26/20 10:20 Family History Father Lung cancer Osteoarthritis Mother Diabetes Thyroid disorder High cholesterol Breast cancer Grandmother Heart disease CVA (cerebral vascular accident) Surgical History Aortic valve replaced avr and aortic homograft closure H/O aortic valve replacement H/O hernia repair S/P VSD repair Social History Smoking Status: Former smoker quit date: 03/02/12 pack-years: 40 Tobacco: How many years used: 35 second hand exposure: No alcohol intake: never substance use type: does not use ROS ROS ED ROS Narrative Shortness of breath. Denies fever or chills. Mild nonproductive cough. No chest pain. Review of Systems ROS Unobtainable: Denies due to encephalopathy Constitutional Constitutional ED: Denies chills or fever(s) Eyes Eyes: Denies change in vision ENT ENT ED: Denies ear pain or sore throat Cardiovascular Cardiovascular: Denies chest pain Respiratory/Chest Respiratory/Chest: Reports cough and dyspnea; Denies sputum Gastrointestinal Gastrointestinal: Denies abdominal pain, diarrhea, nausea or vomiting Genitourinary Genitourinary ED: Denies dysuria Musculoskeletal Musculoskeletal: Denies myalgias Integumentary Denies rash Neurologic Neurologic: Denies headache(s) Psychiatric Psychiatric: Denies depression Endocrine Endocrinology: Denies polyuria Hematologic/Lymphatic Hematologic/Lymphatic: Reports easy bruising Allergic/Immunologic Allergic/Immunologic ED: Denies urticaria EXAM Physical Exam Narrative Exam Narrative: Middle-age male no acute distress currently on oxygen on 4 L 9 9%. Afebrile. Does not look septic or toxic. H EENT exam unremarkable. Neck nontender no lymphadenopathy no JVD. Lungs clear to auscultation bilaterally. Heart prosthetic heart clinic regular rate and rhythm. Abdomen soft nontender normal bowel sounds no peritoneal signs. Strength moves all 4. 1+ pitting edema both lower extremities. Equal symmetrical. Calves are nontender without cords. Neurologically is awake alert. He is answering questions. He follows limited commands. Const Vital Signs: 10/26/20 10:20 10/26/20 10:29 10/26/20 10:50 Temperature 97.9 F Temperature Source Oral Pulse Rate 87 86 Respiratory Rate 18 18 Respiratory Effort Short of Breath Respiratory Depth Shallow Respiratory Pattern Irregular Blood Pressure 169/95 H 169/95 H Blood Pressure Mean 119 119 Pulse Ox 99 99 Oxygen Delivery Method Nasal Cannula Nasal Cannula Nasal Cannula Oxygen Flow Rate (L/min) 4 4 4 Fraction of Inspired Oxygen (FIO2) 4 10/26/20 11:57 Temperature 98.1 F Temperature Source Oral Pulse Rate 86 Respiratory Rate 19 H Respiratory Effort Respiratory Depth Respiratory Pattern Blood Pressure 157/77 H Blood Pressure Mean 103 Pulse Ox 100 Oxygen Delivery Method Nasal Cannula Oxygen Flow Rate (L/min) 4 Fraction of Inspired Oxygen (FIO2) Positive well nourished and well developed; Negative for obese, cachectic or contractures General Appearance ED: well developed and NAD; Negative for cachectic or contractures Nutritional Appearance: Negative for cachectic or obese HEENT Reports moist mucous membranes atraumatic; Negative for trauma or tenderness Eyes PERRL and EOMs intact bilaterally General Eye ED: Negative for pale conjunctiva Neck no lymphadenopathy, supple, no meningeal signs and no JVD General: Negative for tenderness Resp normal respiratory effort and clear to auscultation bilaterally Auscultation: Negative for rales, rhonchi, wheezes or diminished lung sounds Cardio regular rate, regular rhythm, S1 normal heart sound, S2 normal heart sound and no murmurs GI non-tender, non-distended and no masses Auscultation: normoactive bowel sounds Palpation: soft; Negative for tender, guarding or rebound tenderness present Back/Spine no CVA tenderness and normal to inspection General Back: Negative for CVA tenderness Extremity Extremity Narrative: 1+ pitting edema bilaterally. General Extremety ED: Negative for tenderness Neuro Sensorium / Orientation: alert Motor Exam: strength 5/5 throughout Psych mental status grossly normal Skin no wounds Lesions: no lesions Rashes: no rashes MDM MDM MDM Narrative Medical decision making narrative: Middle-age male requiring more O2 reportedly short of breath with a history of CHF and increased leg swelling. Has a prosthetic heart valve on Coumadin. Screening labs are being obtained along with a chest x-ray and EKG and Coumadin level. Differential would include CHF, pneumonia, Covid etc. Repeat exam patient is doing well at 12:05 PM. Vital signs are stable. He and I went over all of his test. He is on home O2 at 4 L. Currently satting normally. His exam is unremarkable his INR is therapeutic he will be discharged home with outpatient follow-up. Lab Data Attestation: I reviewed the patient's lab results. Lab results narrative: Hemogram shows normal white count of 6.9. Hemoglobin 13.7. Patient's INR is 2.6 he is on Coumadin. Electrolytes unremarkable gap of 3 creatinine 1.2. Glucose 152. Troponin normal. BNP is only 129. Covid test negative. Labs: Laboratory Results - last 24 hr 08/10/26/20 10/26/20 10:45 10:45 10:45 WBC 6.9 RBC 4.35 L Hgb 13.7 Hct 45.9 MCV 105.5 H MCH 31.5 MCHC 29.8 L RDW Std Deviation 53.8 H RDW Coeff of Joseluis 13.7 Plt Count 134 L MPV 11.7 Immature Gran % (Auto) 0.400 Neut % (Auto) 64.9 Lymph % (Auto) 17.7 L [place] % (Auto) 6.7 Eos % (Auto) 9.7 H Baso % (Auto) 0.6 Absolute Neuts (auto) 4.5 Absolute Lymphs (auto) 1.22 Nucleated RBC % 0 PT 26.9 H INR 2.6 Sodium 140 Potassium 4.7 Chloride 102 Carbon Dioxide 35.0 H Anion Gap 3 L BUN 31 H Creatinine 1.20 Estim Creat Clear Calc 68.74 Est GFR (MDRD) Af Amer 81 Est GFR (MDRD) Non-Af 67 BUN/Creatinine Ratio 25.8 H Glucose 152 H Calcium 8.4 L Troponin I High Sens 10 B-Natriuretic Peptide 10/26/20 10:45 WBC RBC Hgb Hct MCV MCH MCHC RDW Std Deviation RDW Coeff of Joseluis Plt Count MPV Immature Gran % (Auto) Neut % (Auto) Lymph % (Auto) [place] % (Auto) Eos % (Auto) Baso % (Auto) Absolute Neuts (auto) Absolute Lymphs (auto) Nucleated RBC % PT INR Sodium Potassium Chloride Carbon Dioxide Anion Gap BUN Creatinine Estim Creat Clear Calc Est GFR (MDRD) Af Amer Est GFR (MDRD) Non-Af BUN/Creatinine Ratio Glucose Calcium Troponin I High Sens B-Natriuretic Peptide 129.8 H Radiography Chest X-Ray - ED: 1 View, Read by ED Physician, Read by Radiologist, Normal, Heart, Lungs, Mediastinum, Bony Structures, No Acute Disease and Chronic Changes Diagnostic Testing: Radiology Impression Chest X-Ray 10/26/20 10:37 IMPRESSION: Hyperinflation. Prior CABG. Findings suggestive of possible scarring at the left lung base. Electronically Signed: Eleuterio Linda MD at 11:17 EDT , Service support , Chronic changes with prior sternotomy. No CHF. No pleural effusions. No significant cardiomegaly. Rhythm Strip Rhythm Strip: Sinus Rhythm Rate: 83 Ectopy: None EKG Initial EKG: Attestation: I personally reviewed and interpreted this EKG as follows: Interpretation: Sinus Rhythm and No Acute Injury Pattern Comments: Normal sinus rhythm rate of 83 no acute signs of DE or ischemia. Right bundle branch block which I suspect is old. Prior EKG tracings: not available for review Discharge Plan Triage Chief Complaint: Shortness of Breath ED Provider: Christiano Dalton Dx/Rx/DC Orders Clinical Impression: Shortness of breath Instructions: ED Dyspnea Prescriptions: No Action aspirin [Adult Aspirin Regimen] 81 mg tablet,delayed release (DR/EC) 81 mg PO QDAY RF: 0 multivitamin [Multiple Vitamins] tablet 1 tab PO QDAY RF: 0 acetaminophen [Tylenol] 325 mg tablet 325 mg PO Q6H PRN (Reason: Pain) RF: 0 vitamin B complex [B Complex-Vitamin B12] Tablet 1 tab PO DAILY RF: 0 warfarin 4 mg tablet 4 mg PO DAILY@1700 RF: 0 escitalopram oxalate 5 mg tablet 10 mg PO DAILY RF: 0 warfarin 5 mg tablet 5 mg PO QMWF RF: 0 guaifenesin 100 mg/5 mL oral syrup 100 mg/5 mL syrup 100 mg PO Q4H PRN (Reason: Cough) RF: 0 ferrous sulfate [Feosol] 325 mg (65 mg iron) tablet 325 mg PO BID RF: 0 alum-mag hydroxide-simeth 200-200-20 mg/5 mL suspension 30 ml PO Q4H PRN (Reason: Heartburn) RF: 0 pantoprazole 20 mg tablet,delayed release (DR/EC) 20 mg PO DAILY RF: 0 tramadol 50 mg tablet 50 mg PO Q6H PRN (Reason: Pain) RF: 0 calcium carbonate 500 mg calcium (1,250 mg) tablet,chewable 500 mg PO DAILY RF: 0 ascorbate calcium (vitamin C) 500 mg tablet 500 mg PO DAILY RF: 0 cholecalciferol (vitamin D3) 125 mcg (5,000 unit) capsule 125 mcg PO DAILY RF: 0 bupropion HCl [Wellbutrin SR] 150 mg tablet sustained-release 12 hr 150 mg PO DAILY RF: 0 Zyrtec 10 mg capsule 10 mg PO DAILY PRN (Reason: Allergic Reaction) RF: 0 melatonin 3 mg capsule 6 mg PO HS PRN (Reason: Insomnia) RF: 0 phenytoin sodium extended [Dilantin Extended] 100 mg capsule 100 mg PO TID Qty: 90 RF: 2 Trelegy Ellipta 200-62.5-25 mcg blister with device 1 inh inhalation DAILY Qty: 60 RF: 6 albuterol sulfate 2.5 MG/3 ML solution for nebulization 2.5 mg INHALATION Q4H PRN PRN (Reason: Sob &/Or Wheezing) RF: 0 Oxygen, Home [Home Oxygen] 2 - 4 lpm NASAL DAILY RF: 0 furosemide 20 mg tablet 40 mg PO DAILY RF: 0 metoprolol tartrate 25 mg tablet 37.5 mg PO BID Qty: 270 RF: 3 Primary Care Provider: Jason Leal Referrals: Jason Leal, [Primary Care Provider] - 3-5 Days if not improving Activity Restrictions/Additional Instructions: Your labs today are unremarkable. Your chest x-ray looks good. There is no specific cause for your symptoms of shortness of breath. Continue your home oxygen and follow-up with your doctor if not improving. Also your Covid test was negative and your chest x-ray showed no signs of pneumonia or fluid collections. Disposition Disposition: Home, Self Care
[2020-10-26 10:54] LABS: Absolute Lymphocyte Count 1.22 X10^3/uL (0.83-4.51); Absolute Neutrophil Count 4.5 X10^3/uL (2.0-7.7); Basophil# 0.04 X10^3/uL; Basophil% 0.6 % (0-1); Eosinophil# 0.67 X10^3/uL; Eosinophils% 9.7 % (0-5); Hematocrit 45.9 % (40-54); Hemoglobin 13.7 g/dL (13.0-16.5); Lymphocyte # 1.22 X10^3/ul (0.83-4.51); Lymphocyte % 17.7 % (19-41); Mean Corp Hgb Conc 29.8 g/dL (32-36); Mean Corpuscular Hgb 31.5 pg (27.0-32.0); Mean Corpuscular Volume 105.5 fL (80-94); Mean Platelet Vol. 11.7 fl (6.2-12.0); Monocyte# 0.46 X10^3/uL; Monocyte% 6.7 % (0-10); NRBC Flagged by Analyzer 0 % (0-5); Neutrophil # 4.49 X10^3/uL (2.7-7.7); Neutrophil % 64.9 % (47-70); Platelet Count 134 K/mm3 (150-450); RBC Distribution Width CV 13.7 % (11.6-14.6); RBC Distribution Width SD 53.8 fl (35.1-43.9); Red Blood Count 4.35 M/mm3 (4.6-6.2); White Blood Count 6.9 K/mm3 (4.4-11.0)
[2020-10-26 11:09] LABS: International Normalized Ratio 2.6; Prothrombin Time (Protime)PT. 26.9 SECONDS (11.7-14.9)
[2020-10-26 11:13] LABS: Anion Gap 3 (5-15); BUN 31 mg/dL (7-18); BUN/Creat Ratio 25.8 RATIO (10-20); Calcium,Total 8.4 mg/dL (8.5-10.1); Chloride 102 mmol/L (98-107); EST Glomerular Filtration Rate 67 mL/min (>60); Est Glom Filt Rate - Afr Amer 81 mL/min (>60); Estimated Creatinine Clearance 68.74 ml/min; Glucose 152 mg/dL (74-106); Potassium 4.7 mmol/L (3.5-5.1); Sodium Level 140 mmol/L (136-145); Troponin-I HS 10 pg/mL (3.0-78.0)
[2020-10-26 11:14] LABS: BNP,B-Type NATRIURETIC PEPTIDE 129.8 pg/mL (0-100)
[2020-10-26 11:57] VITALS: BP 157/77; PULSE 86; RESP 19; TEMP 36.7; O2SAT 100
[2020-10-26 13:05] VITALS: BP 159/89; PULSE 85; RESP 17; O2SAT 98
== END 2020-10-26 13:06 | disposition home or self-care (01) ==
PROVIDERS: Emergency Provider Emergency Medicine; PCP Family Medicine
DX: R06.02 Shortness of breath (principal); I45.10 Unspecified right bundle-branch block; E66.9 Obesity, unspecified; Z68.27 Body mass index [BMI] 27.0-27.9, adult; E78.5 Hyperlipidemia, unspecified; I11.0 Hypertensive heart disease with heart failure; I50.9 Heart failure, unspecified; J44.9 Chronic obstructive pulmonary disease, unspecified; K21.9 Gastro-esophageal reflux disease without esophagitis; J96.11 Chronic respiratory failure with hypoxia; G40.909 Epilepsy, unspecified, not intractable, without status epilepticus; G47.10 Hypersomnia, unspecified; Z87.19 Personal history of other diseases of the digestive system; Z86.718 Personal history of other venous thrombosis and embolism; Z95.2 Presence of prosthetic heart valve; Z95.1 Presence of aortocoronary bypass graft; Z99.81 Dependence on supplemental oxygen; Z79.01 Long term (current) use of anticoagulants; Z79.82 Long term (current) use of aspirin; Z79.899 Other long term (current) drug therapy; Z87.891 Personal history of nicotine dependence
CPT/HCPCS: 71045; 80048; 83880; 84484; 85025; 85610; 87426; 93005; 99285

== ENCOUNTER → 2020-11-06 09:36 | Outpatient (CLI) | payer MEDICARE, MEDICAID, SELFPAY ==
[2020-11-06 10:09] LABS: Hematocrit 43.7 % (40-54); Hemoglobin 13.4 g/dL (13.0-16.5); Mean Corp Hgb Conc 30.7 g/dL (32-36); Mean Corpuscular Hgb 31.9 pg (27.0-32.0); Mean Platelet Vol. 11.8 fl (6.2-12.0); Platelet Count 103 K/mm3 (150-450); RBC Distribution Width CV 13.5 % (11.6-14.6); RBC Distribution Width SD 51.8 fl (35.1-43.9); White Blood Count 4.8 K/mm3 (4.4-11.0)
[2020-11-06 10:40] LABS: Vitamin B12 704 pg/mL (211-911)
[2020-11-06 10:55] LABS: Phenytoin (Dilantin) Level 12.7 mL (10.0-20.0)
[2020-11-06 11:26] LABS: AST(SGOT) 22 U/L (15-37); Alanine Aminotransfer ALT/SGPT 27 U/L (16-61); Albumin, Serum 3.6 g/dL (3.2-5.0); Alkaline Phosphatase 176 U/L (45-117); Anion Gap 1 (5-15); BUN 30 mg/dL (7-18); BUN/Creat Ratio 25.4 RATIO (10-20); Calcium,Total 8.2 mg/dL (8.5-10.1); Chloride 105 mmol/L (98-107); Creatinine, Serum 1.18 mg/dL (0.70-1.30); EST Glomerular Filtration Rate 68 mL/min (>60); Est Glom Filt Rate - Afr Amer 82 mL/min (>60); Globulin 3.7 g/dL (2.2-4.2); Glucose 110 mg/dL (74-106); Potassium 4.2 mmol/L (3.5-5.1); Protein, Total 7.3 g/dL (6.4-8.2); Sodium Level 141 mmol/L (136-145); Thyroid Stim Hormone (TSH) 2.33 uIU/mL (0.358-3.74)
== END ==
PROVIDERS: PCP Family Medicine; Referring Provider Psychiatry & Neurology Neurology; Visit Provider Psychiatry & Neurology Neurology
DX: F81.9 Developmental disorder of scholastic skills, unspecified (principal); G40.909 Epilepsy, unspecified, not intractable, without status epilepticus; R06.02 Shortness of breath; R60.0 Localized edema
CPT/HCPCS: 36415; 80053; 80185; 82140; 82607; 82746; 84443; 85027

== ENCOUNTER 2020-12-26 22:31 | Inpatient (IN) | payer MEDICARE, MEDICAID, SELFPAY ==
[2020-12-26 22:32] VITALS: BP 153/97; PULSE 97; RESP 18; TEMP 36.6; O2SAT 100; BMI 30.8
--- NOTE | 2020-12-26 22:38 | RAD_ITS ---
HISTORY: SOB EXAMINATION/TECHNIQUE: XR Chest 1 View: Portable upright AP chest x-ray COMPARISON: 10/26/20, 12/13/19 FINDINGS: LINES/DEVICES: None. LUNGS: Stable coarsening of the interstitial markings without consolidation, edema or effusion. No pneumothorax. MEDIASTINUM AND CARDIOVASCULAR STRUCTURES: Cardiac silhouette not enlarged. Stable CABG changes. Central airways and mediastinal contour are unremarkable. BONES AND SOFT TISSUES: No acute bony abnormalities. RAD/Chest 1 View (Portable) IMPRESSION: No radiographic evidence of acute cardiopulmonary disease. at 0013 Reported and signed by: Mohan Thomas MD Electronically Signed: Mohan Thomas MD at 0:12 EDT Tel , Service support ,
--- NOTE | 2020-12-26 22:38 | EKG12_ITS ---
Test Reason : SOB Blood Pressure : / mmHG Vent. Rate : 096 BPM Atrial Rate : 096 BPM P-R Int : 196 ms QRS Dur : 160 ms QT Int : 418 ms P-R-T Axes : 084 -68 072 degrees QTc Int : 528 ms Sinus rhythm with occasional Premature ventricular complexes Right bundle branch block Left anterior fascicular block Bifascicular block Abnormal ECG Confirmed by GRAYSON HEARD, JALIL ([id number]), optometry assistant JAIDEN KANG ([id number]) on 12/28/2020 9:34:51 AM Referred By: DARIAN Confirmed By:JALIL GALICIA MD
[2020-12-26 22:39] VITALS: PULSE 92; RESP 12; RESP 20; O2SAT 100
[2020-12-26 22:40] VITALS: O2SAT 88
--- NOTE | 2020-12-26 22:40 | EDS_ITS ---
HPI History of Present Illness Chief Complaint: Shortness of Breath Informant: patient Narrative Narrative: Patient presents with shortness of breath. Due to his dyspnea and being on CPAP/BiPAP its rather hard to get some of the details. It sounds like the dyspnea really started building up today. However, he has been having some dyspnea for about 2 to 3 days. He does have some orthopnea. He is denying chest pain. He has cough but it sounds like no sputum production. No reported fevers. The best I can get is he had at least one Covid immunization. He does have a history of CHF. He also has a history of severe COPD. He is currently on 4 L of home oxygen. Has a history of aortic valve replacement and is on Coumadin. He is on Lasix. We have him listed as 40 a day. It sounds like he may have had this increased recently due to some problems. Again, it is hard to get those details right now. Laying flat makes his breathing worse CPAP by EMS did help his breathing. [facility] Medical History (Updated 12/27/20 @ 02:[address] James Chowdhury MD) Alkaline phosphatase elevation Aortic valve disease Bilateral leg edema Cholelithiasis Chronic hypoxemic respiratory failure COPD (chronic obstructive pulmonary disease) DVT (deep venous thrombosis) Eczema of hand GERD (gastroesophageal reflux disease) History of Coumadin therapy HTN (hypertension) Hyperlipidemia Hypersomnia Hypersomnia Hypoxemic respiratory failure, chronic Iatrogenic pneumothorax Learning disability Mixed obstructive and restrictive ventilatory defect Mood disorder Obesity Seizure disorder Shortness of breath varicose veins Ventricular septal defect Home Medications Oxygen, Home [Home Oxygen] 2 - 4 lpm NASAL DAILY 04/05/16 [History Last Taken Unknown] albuterol sulfate 2.5 mg INHALATION Q4H PRN PRN 04/05/16 [History Last Taken Unknown] aspirin 81 mg tablet,delayed release 81 mg PO QDAY 03/17/17 [History Last Taken Unknown] multivitamin 1 tab PO QDAY 03/17/17 [History Last Taken Unknown] acetaminophen 325 mg tablet 325 mg PO Q6H PRN tab 01/04/20 [History Last Taken Unknown] vitamin B complex 1 tab PO DAILY 01/04/20 [History Last Taken Unknown] aluminum-mag hydroxide-simethicone 200 mg-200 mg-20 mg/5 mL oral susp 30 ml PO Q4H PRN ml 04/18/20 [History Last Taken Unknown] ascorbate calcium (vitamin C) 500 mg tablet 500 mg PO DAILY 04/18/20 [History Last Taken Unknown] bupropion HCl 150 mg tablet,12 hr sustained-release 150 mg PO DAILY 04/18/20 [History Last Taken Unknown] calcium carbonate 500 mg calcium (1,250 mg) chewable tablet 500 mg PO DAILY 04/18/20 [History Last Taken Unknown] cetirizine 10 mg capsule 10 mg PO DAILY PRN 04/18/20 [History Last Taken Unknown] cholecalciferol (vitamin D3) 125 mcg (5,000 unit) capsule 125 mcg PO DAILY 04/18/20 [History Last Taken Unknown] escitalopram oxalate 5 mg tablet 10 mg PO DAILY tab 04/18/20 [History Last Taken Unknown] ferrous sulfate 325 mg (65 mg iron) tablet 325 mg PO BID 04/18/20 [History Last Taken Unknown] guaifenesin 100 mg/5 mL oral syrup 100 mg PO Q4H PRN 04/18/20 [History Last Taken Unknown] melatonin 3 mg capsule 6 mg PO HS PRN cap 04/18/20 [History Last Taken Unknown] pantoprazole 20 mg tablet,delayed release 20 mg PO DAILY 04/18/20 [History Last Taken Unknown] tramadol 50 mg tablet 50 mg PO Q6H PRN 04/18/20 [History Last Taken Unknown] warfarin 4 mg tablet 4 mg PO DAILY@1700 tab 04/18/20 [History Last Taken Unknown] warfarin 5 mg tablet 5 mg PO QMWF 04/18/20 [History Last Taken Unknown] metoprolol tartrate 25 mg tablet 37.5 mg PO BID #270 tab 09/24/20 [Rx Last Taken Unknown] fluticasone fur. 200 mcg-umeclid 62.5 mcg-vilant 25 mcg inhalat.powder 1 inh INHALATION DAILY #60 ea 10/16/20 [Rx Last Taken Unknown] furosemide 40 mg PO DAILY 10/26/20 [History Last Taken Unknown] phenytoin sodium extended 100 mg capsule 100 mg PO TID #90 cap 11/08/20 [Rx Last Taken Unknown] Allergy/AdvReac Type Severity Reaction Status Date / Time No Known Allergies Allergy Verified 11/08/20 13:03 Family History Father Lung cancer Osteoarthritis Mother Diabetes Thyroid disorder High cholesterol Breast cancer Grandmother Heart disease CVA (cerebral vascular accident) Surgical History Aortic valve replaced avr and aortic homograft closure H/O aortic valve replacement H/O hernia repair S/P VSD repair Social History Smoking Status: Former smoker quit date: 03/02/12 pack-years: 40 Tobacco: How many years used: 35 second hand exposure: No alcohol intake: never substance use type: does not use ROS ROS ED Constitutional Constitutional ED: Denies fever(s) Eyes Eyes: Denies change in vision ENT ENT ED: Denies rhinorrhea Cardiovascular Cardiovascular: Reports orthopnea; Denies chest pain or palpitations Respiratory/Chest Respiratory/Chest: Reports dyspnea and orthopnea Gastrointestinal Gastrointestinal: Denies nausea or vomiting Genitourinary Genitourinary ED: Denies dysuria Musculoskeletal Musculoskeletal: Denies myalgias Integumentary Denies rash Neurologic Neurologic: Denies headache(s) or weakness Endocrine Endocrinology: Denies polydipsia or polyuria Hematologic/Lymphatic Hematologic/Lymphatic: Reports easy bleeding and easy bruising Allergic/Immunologic Allergic/Immunologic ED: Denies mouth swelling, tongue swelling or urticaria EXAM Physical Exam Const Vital Signs: 12/26/20 22:32 12/26/20 22:39 12/26/20 22:40 Temperature 98 F Temperature Source Oral Pulse Rate 97 92 Respiratory Rate 18 20 H Respiratory Effort Short of Breath Labored Respiratory Pattern Tachypnea Tachypnea Blood Pressure 153/97 H Blood Pressure Mean 115 Pulse Ox 100 100 Oxygen Delivery Method CPAP Nasal Cannula Oxygen Flow Rate (L/min) 4 Fraction of Inspired Oxygen (FIO2) 25 25 12/26/20 22:42 12/26/20 22:59 12/27/20 00:57 Temperature Temperature Source Pulse Rate 96 94 95 Respiratory Rate 23 H 21 H 20 H Respiratory Effort Respiratory Pattern Tachypnea Tachypnea Blood Pressure 153/97 H Blood Pressure Mean 115 Pulse Ox 20 94 Oxygen Delivery Method CPAP Oxygen Flow Rate (L/min) Fraction of Inspired Oxygen (FIO2) 25 30 12/27/20 01:12 12/27/20 01:36 Temperature 96.8 F L 97.4 F L Temperature Source Oral Oral Pulse Rate 98 76 Respiratory Rate 25 H 21 H Respiratory Effort Respiratory Pattern Blood Pressure 144/92 H 150/74 H Blood Pressure Mean 109 99 Pulse Ox 93 98 Oxygen Delivery Method CPAP CPAP Oxygen Flow Rate (L/min) Fraction of Inspired Oxygen (FIO2) 25 25 Patient is obviously ill using CPAP at this time. But he is awake he is alert he is oriented. He is not sleepy or lethargic. He is good answering yes and no questions easily. He can speak somewhat but is a little hard to hear him through the mask. He states he has improved with treatment. Positive well nourished and well developed General Appearance ED: well developed HEENT Reports moist mucous membranes atraumatic Eyes General Eye ED: Negative for pale conjunctiva or scleral icterus Neck supple Resp Resp Narrative: Respiratory effort is increased. He does have some diffusely decreased breath sounds and does appear to have rales about two th[address] way up bilaterally. Cardio regular rate and regular rhythm Cardio Narrative: Patient has a very crisp mechanical valve snap. GI non-tender and non-distended Palpation: soft Extremity Extremity Narrative: Bilateral lower extremity edema. He states this is always present. Neuro oriented x3 Sensorium / Orientation: alert; Negative for lethargic or stuporous Psych mental status grossly normal Skin Lesions: no lesions Rashes: no rashes MDM MDM MDM Narrative Medical decision making narrative: Patient's recheck. He is feeling markedly better. His lungs sound clear. Patient is rechecked again. We did give him another treatment. He is doing better. His FiO2 has come down from 60 to 30% and he is satting 100% now. His BiPAP is at 14 and 7. We would like to slowly wean this down. He looks very comfortable. He says his breathing is very good now. He is wide awake and alert. I do not think this is pulmonary embolus with a therapeutic INR. I think this is likely COPD. Lactate is normal. White counts normal. He is not anemic. Electrolytes and liver function test show no marked abnormalities. Troponin is negative. X-ray is not showing any acute process. I discussed case with the hospitalist. Lab Data Attestation: I reviewed the patient's lab results. Labs: Laboratory Results - last 24 hr 12/26/20 12/26/20 12/26/20 22:38 22:38 22:38 WBC 10.1 RBC 4.13 L Hgb 12.9 L Hct 43.5 MCV 105.3 H MCH 31.2 MCHC 29.7 L RDW Std Deviation 53.1 H RDW Coeff of Joseluis 13.5 Plt Count 122 L MPV 12.1 H Immature Gran % (Auto) 0.400 Neut % (Auto) 80.8 H Lymph % (Auto) 7.8 L [place] % (Auto) 6.3 Eos % (Auto) 4.3 Baso % (Auto) 0.4 Absolute Neuts (auto) 8.2 H Absolute Lymphs (auto) 0.79 L Nucleated RBC % 0 PT INR Sodium 143 Potassium 4.7 Chloride 105 Carbon Dioxide 35.0 H Anion Gap 3 L BUN 29 H Creatinine 1.07 Estim Creat Clear Calc 77.09 Est GFR (MDRD) Af Amer 92 Est GFR (MDRD) Non-Af 76 BUN/Creatinine Ratio 27.1 H Glucose 163 H Lactic Acid 0.6 Calcium 8.0 L Total Bilirubin 0.20 AST 27 ALT 34 Alkaline Phosphatase 225 H Troponin I High Sens 20 B-Natriuretic Peptide Total Protein 7.5 Albumin 3.4 Globulin 4.1 Albumin/Globulin Ratio 0.8 L 12/26/20 12/26/20 22:38 22:38 WBC RBC Hgb Hct MCV MCH MCHC RDW Std Deviation RDW Coeff of Joseluis Plt Count MPV Immature Gran % (Auto) Neut % (Auto) Lymph % (Auto) [place] % (Auto) Eos % (Auto) Baso % (Auto) Absolute Neuts (auto) Absolute Lymphs (auto) Nucleated RBC % PT 23.4 H INR 2.2 Sodium Potassium Chloride Carbon Dioxide Anion Gap BUN Creatinine Estim Creat Clear Calc Est GFR (MDRD) Af Amer Est GFR (MDRD) Non-Af BUN/Creatinine Ratio Glucose Lactic Acid Calcium Total Bilirubin AST ALT Alkaline Phosphatase Troponin I High Sens B-Natriuretic Peptide 125.0 H Total Protein Albumin Globulin Albumin/Globulin Ratio Radiography Diagnostic Testing: Clinical Impression(s) from Imaging Studies Chest X-Ray 12/26/20 22:38 IMPRESSION: No radiographic evidence of acute cardiopulmonary disease. at 0013 Reported and signed by: Mohan Thomas MD Electronically Signed: Mohan Thomas MD at 0:12 EDT Tel , Service support , Critical Care Time Critical Care Time: Yes Critical care time (excluding procedures): 30-74 minutes and - (35 minutes critical care time. Patient is rechecked multiple times. Given multiple meds. Placed on BiPAP. We are slowly trying to wean this. He has improved. He was at risk for respiratory decompensation.) Discharge Plan Dx/Rx/DC Orders Clinical Impression: COPD exacerbation, Acute on chronic respiratory failure with hypoxia Disposition Disposition: Acute Care Hospital [facility]
[2020-12-26 22:42] VITALS: BP 153/97; PULSE 96; RESP 23; O2SAT 20
[2020-12-26 22:52] LABS: Absolute Lymphocyte Count 0.79 X10^3/uL (0.83-4.51); Absolute Neutrophil Count 8.2 X10^3/uL (2.0-7.7); Basophil# 0.04 X10^3/uL; Basophil% 0.4 % (0-1); Eosinophil# 0.43 X10^3/uL; Eosinophils% 4.3 % (0-5); Hematocrit 43.5 % (40-54); Hemoglobin 12.9 g/dL (13.0-16.5); Lymphocyte # 0.79 X10^3/ul (0.83-4.51); Lymphocyte % 7.8 % (19-41); Mean Corp Hgb Conc 29.7 g/dL (32-36); Mean Corpuscular Hgb 31.2 pg (27.0-32.0); Mean Corpuscular Volume 105.3 fL (80-94); Mean Platelet Vol. 12.1 fl (6.2-12.0); Monocyte# 0.64 X10^3/uL; Monocyte% 6.3 % (0-10); NRBC Flagged by Analyzer 0 % (0-5); Neutrophil # 8.17 X10^3/uL (2.7-7.7); Neutrophil % 80.8 % (47-70); Platelet Count 122 K/mm3 (150-450); RBC Distribution Width CV 13.5 % (11.6-14.6); RBC Distribution Width SD 53.1 fl (35.1-43.9); Red Blood Count 4.13 M/mm3 (4.6-6.2); White Blood Count 10.1 K/mm3 (4.4-11.0)
[2020-12-26] MEDS: Ipratropium/Albuterol Sulfate 3 ML AMPUL.NEB INHALATION (22:58)
[2020-12-26 22:59] VITALS: PULSE 94; RESP 21
[2020-12-26 23:04] LABS: International Normalized Ratio 2.2; Prothrombin Time (Protime)PT. 23.4 SECONDS (11.7-14.9)
[2020-12-26 23:12] LABS: ALB/GLOB Ratio 0.8 RATIO (0.9-2.4); AST(SGOT) 27 U/L (15-37); Alanine Aminotransfer ALT/SGPT 34 U/L (16-61); Albumin, Serum 3.4 g/dL (3.2-5.0); Alkaline Phosphatase 225 U/L (45-117); Anion Gap 3 (5-15); BUN 29 mg/dL (7-18); BUN/Creat Ratio 27.1 RATIO (10-20); Chloride 105 mmol/L (98-107); Creatinine, Serum 1.07 mg/dL (0.70-1.30); EST Glomerular Filtration Rate 76 mL/min (>60); Est Glom Filt Rate - Afr Amer 92 mL/min (>60); Estimated Creatinine Clearance 77.09 ml/min; Globulin 4.1 g/dL (2.2-4.2); Glucose 163 mg/dL (74-106); Potassium 4.7 mmol/L (3.5-5.1); Protein, Total 7.5 g/dL (6.4-8.2); Sodium Level 143 mmol/L (136-145); Troponin-I HS 20 pg/mL (3.0-78.0)
[2020-12-26] MEDS: Furosemide 40 MG/4 ML Vial IV (23:19)
[2020-12-26 23:24] LABS: Lactic Acid 0.6 mmol/L (0.4-1.9)
[2020-12-26] MEDS: Nitroglycerin Oint 1 INCH PACKET TRANSDERM. (23:38)
[2020-12-27] VITALS (19 sets, daily range): BP systolic 120–150; BP diastolic 66–92; PULSE 61–99; RESP 12–25; TEMP 36–37.1; O2SAT 93–99; BMI 28.3
[2020-12-27] MEDS: Albuterol 2.5 MG/3 ML VIAL.NEB. INHALATION (00:57)
[2020-12-27] MEDS: MethylPREDNISolone 125 MG/2 ML Vial IV (01:08)
--- NOTE | 2020-12-27 02:26 | HP.PCM.HOS_ITS ---
HPI - General General Date of Admission: 12/27/20 Date of Service: 12/27/20 Chief Complaint: SOB HPI Narrative KAYLEEN AWAD, is a 55 M with a significant history of MRDD; former smoker; mixed obstructive and restrictive ventilatory defect on chronic home nasal cannula oxygenation who presents to the emergency department with a persistent shortness of breath that started on the same day of presentation after patient had eating his supper. His symptoms was persistent. Reportedly patient was placed on noninvasive pressure ventilation by paramedics. Patient denies any wheezes or cough. [facility] Medical History Alkaline phosphatase elevation Aortic valve disease Bilateral leg edema Cholelithiasis Chronic hypoxemic respiratory failure COPD (chronic obstructive pulmonary disease) DVT (deep venous thrombosis) Eczema of hand GERD (gastroesophageal reflux disease) History of Coumadin therapy HTN (hypertension) Hyperlipidemia Hypersomnia Hypersomnia Hypoxemic respiratory failure, chronic Iatrogenic pneumothorax Learning disability Mixed obstructive and restrictive ventilatory defect Mood disorder Obesity Seizure disorder Shortness of breath varicose veins Ventricular septal defect Home Medications Oxygen, Home [Home Oxygen] 2 - 4 lpm NASAL DAILY 04/05/16 [History Last Taken Unknown] albuterol sulfate 2.5 mg INHALATION Q4H PRN PRN 04/05/16 [History Last Taken Unknown] aspirin 81 mg tablet,delayed release 81 mg PO QDAY 03/17/17 [History Last Taken Unknown] multivitamin 1 tab PO QDAY 03/17/17 [History Last Taken Unknown] acetaminophen 325 mg tablet 325 mg PO Q6H PRN tab 01/04/20 [History Last Taken Unknown] vitamin B complex 1 tab PO DAILY 01/04/20 [History Last Taken Unknown] aluminum-mag hydroxide-simethicone 200 mg-200 mg-20 mg/5 mL oral susp 30 ml PO Q4H PRN ml 04/18/20 [History Last Taken Unknown] ascorbate calcium (vitamin C) 500 mg tablet 500 mg PO DAILY 04/18/20 [History Last Taken Unknown] bupropion HCl 150 mg tablet,12 hr sustained-release 150 mg PO DAILY 04/18/20 [History Last Taken Unknown] calcium carbonate 500 mg calcium (1,250 mg) chewable tablet 500 mg PO DAILY 04/18/20 [History Last Taken Unknown] cetirizine 10 mg capsule 10 mg PO DAILY PRN 04/18/20 [History Last Taken Unknown] cholecalciferol (vitamin D3) 125 mcg (5,000 unit) capsule 125 mcg PO DAILY 04/18/20 [History Last Taken Unknown] escitalopram oxalate 5 mg tablet 10 mg PO DAILY tab 04/18/20 [History Last Taken Unknown] ferrous sulfate 325 mg (65 mg iron) tablet 325 mg PO BID 04/18/20 [History Last Taken Unknown] guaifenesin 100 mg/5 mL oral syrup 100 mg PO Q4H PRN 04/18/20 [History Last Taken Unknown] melatonin 3 mg capsule 6 mg PO HS PRN cap 04/18/20 [History Last Taken Unknown] pantoprazole 20 mg tablet,delayed release 20 mg PO DAILY 04/18/20 [History Last Taken Unknown] tramadol 50 mg tablet 50 mg PO Q6H PRN 04/18/20 [History Last Taken Unknown] warfarin 4 mg tablet 4 mg PO DAILY@1700 tab 04/18/20 [History Last Taken Unknown] warfarin 5 mg tablet 5 mg PO QMWF 04/18/20 [History Last Taken Unknown] metoprolol tartrate 25 mg tablet 37.5 mg PO BID #270 tab 09/24/20 [Rx Last Taken Unknown] fluticasone fur. 200 mcg-umeclid 62.5 mcg-vilant 25 mcg inhalat.powder 1 inh INHALATION DAILY #60 ea 10/16/20 [Rx Last Taken Unknown] furosemide 40 mg PO DAILY 10/26/20 [History Last Taken Unknown] phenytoin sodium extended 100 mg capsule 100 mg PO TID #90 cap 11/08/20 [Rx Last Taken Unknown] Allergy/AdvReac Type Severity Reaction Status Date / Time No Known Allergies Allergy Verified 11/08/20 13:03 Family History Father Lung cancer Osteoarthritis Mother Diabetes Thyroid disorder High cholesterol Breast cancer Grandmother Heart disease CVA (cerebral vascular accident) Surgical History Aortic valve replaced avr and aortic homograft closure H/O aortic valve replacement H/O hernia repair S/P VSD repair Social History Smoking Status: Former smoker quit date: 03/02/12 pack-years: 40 Tobacco: How many years used: 35 second hand exposure: No alcohol intake: never substance use type: does not use ROS ROS Narrative Constitutional: Denies fever, chills, fatigue, anorexia and change in weight Eyes: Denies blurry vision, change in eye color, change in vision, discharge from eye(s), double vision, erythema, eye pain, loss of vision or other HEENT: Denies abnormal hearing, dysphagia, ear pain, epistaxis, headache(s), hearing loss, nasal congestion, nasal discharge, post nasal drip, sinus pressure, sore throat or other Cardiovascular: Denies chest pain or palpitations. Respiratory/Chest: Reports shortness of breath. Denies cough, excessive phlegm production; or wheezes Gastrointestinal: Denies abdominal pain, coffee ground emesis, constipation, diarrhea, dyspepsia, hematemesis, hematochezia, loose stools, melena, nausea, vomiting or other Genitourinary: Denies burning urination, difficulty urinating, dysuria, hematuria, nocturia, urinary frequency, urinary hesitancy, urinary incontinence, urinary urgency or other Musculoskeletal: Denies arthralgias, back pain, joint pain, joint stiffness, joint swelling, myalgias, neck pain or other Neurologic: Denies abnormal gait, abnormal speech, confusion, disequilibrium, dizziness, focal weakness, headache(s), numbness, paresthesias, seizure-like activity, syncope, tingling, tremor(s) or other Psychiatric: Denies anxiety, depression, homicidal ideation, suicidal ideation or other Endocrinology: Denies change in body appearance, cold intolerance, excessive sweating, heat intolerance, polydipsia, polyuria or other Hematologic/Lymphatic: Denies anemia, easy bleeding, easy bruising, lymphadenopathy or other Integumentary: Denies rashes Allergic/Immunologic: Denies rhinitis, hives, eczema, asthma or other Vital Signs Vital Signs Vital Signs: 12/26/20 22:32 12/26/20 22:39 12/26/20 22:40 Temperature 98 F Temperature Source Oral Pulse Rate 97 92 Respiratory Rate 18 20 H Respiratory Effort Short of Breath Labored Respiratory Pattern Tachypnea Tachypnea Blood Pressure 153/97 H Blood Pressure Mean 115 Pulse Ox 100 100 Oxygen Delivery Method CPAP Nasal Cannula Oxygen Flow Rate (L/min) 4 Fraction of Inspired Oxygen (FIO2) 25 25 12/26/20 22:42 12/26/20 22:59 12/27/20 00:57 Temperature Temperature Source Pulse Rate 96 94 95 Respiratory Rate 23 H 21 H 20 H Respiratory Effort Respiratory Pattern Tachypnea Tachypnea Blood Pressure 153/97 H Blood Pressure Mean 115 Pulse Ox 20 94 Oxygen Delivery Method CPAP Oxygen Flow Rate (L/min) Fraction of Inspired Oxygen (FIO2) 25 30 12/27/20 01:12 12/27/20 01:36 Temperature 96.8 F L 97.4 F L Temperature Source Oral Oral Pulse Rate 98 76 Respiratory Rate 25 H 21 H Respiratory Effort Respiratory Pattern Blood Pressure 144/92 H 150/74 H Blood Pressure Mean 109 99 Pulse Ox 93 98 Oxygen Delivery Method CPAP CPAP Oxygen Flow Rate (L/min) Fraction of Inspired Oxygen (FIO2) 25 25 Weight Weight: 94.6 kg Body Mass Index (BMI) 30.8 Physical Exam Narrative Physical exam: General: Well-nourished, well-developed. Head: Normocephalic, atraumatic, no tenderness Eyes: PERRLA, EOMI ENT, no trauma, moist mucous membranes, no rhinorrhea Neck: Nontender, full range of motion, no spinal tenderness, deformities, step- off CVS: Regular rate and rhythm. S1-S2 present. No murmur, gallop or rub. Respiratory : Tachypnea; Rales. Chest; Wall nontender, no wheezing Abdomen: Soft, nontender, nondistended, normal bowel sounds, no masses : Deferred Back: Nontender, no CVA tenderness, no midline spinal tenderness, deformities, step-offs Extremities: Nontender full range of motion, no trauma Skin: Erythema of sacrococcygeal area and groin. Neuro: Alert, oriented, cranial nerves II through XII grossly intact. Psychiatry: Normal mood. Normal affect. Not depressed. Not anxious. Results Lab / Micro Data Result Diagrams: 12/26/20 22:38 12/26/20 22:38 Labs: Laboratory Results - last 24 hr 12/26/20 22:38: WBC 10.1, RBC 4.13 L, Hgb 12.9 L, Hct 43.5, MCV 105.3 H, MCH 31.2, MCHC 29.7 L, RDW Std Deviation 53.1 H, RDW Coeff of Joseluis 13.5, Plt Count 122 L, MPV 12.1 H, Immature Gran % (Auto) 0.400, Neut % (Auto) 80.8 H, Lymph % (Auto) 7.8 L, [place] % (Auto) 6.3, Eos % (Auto) 4.3, Baso % (Auto) 0.4, Absolute Neuts (auto) 8.2 H, Absolute Lymphs (auto) 0.79 L, Nucleated RBC % 0 12/26/20 22:38: Sodium 143, Potassium 4.7, Chloride 105, Carbon Dioxide 35.0 H, Anion Gap 3 L, BUN 29 H, Creatinine 1.07, Estim Creat Clear Calc 77.09, Est GFR (MDRD) Af Amer 92, Est GFR (MDRD) Non-Af 76, BUN/Creatinine Ratio 27.1 H, Glucose 163 H, Calcium 8.0 L, Total Bilirubin 0.20, AST 27, ALT 34, Alkaline Phosphatase 225 H, Troponin I High Sens 20, Total Protein 7.5, Albumin 3.4, Globulin 4.1, Albumin/Globulin Ratio 0.8 L 12/26/20 22:38: Lactic Acid 0.6 12/26/20 22:38: B-Natriuretic Peptide 125.0 H 12/26/20 22:38: PT 23.4 H, INR 2.2 Micro: Microbiology 12/26/20 23:00 Nasal Secretion SARS-CoV-2 Antigen (Rapid) - Final Radiology Impression Chest X-Ray 12/26/20 22:38 IMPRESSION: No radiographic evidence of acute cardiopulmonary disease. at 0013 Reported and signed by: Mohan Thomas MD Electronically Signed: Mohan Thomas MD at 0:12 EDT Tel , Service support , Assessment & Plan Assessment/Plan (1) Acute on chronic respiratory failure with hypoxia: (2) Stage 4 very severe COPD by GOLD classification: (3) Mixed obstructive and restrictive ventilatory defect: (4) H/O aortic valve replacement: PLAN: Acute on chronic respiratory failure with hypoxia/stage IV severe COPD macrocalcification/mixed obstructive and restrictive ventilatory defect Impression of chest x-ray by radiologist: No radiographic evidence of acute cardiopulmonary disease. Acute chest x-ray image was independently interpreted and agree radiologist interpretation. Scheduled DuoNeb Albuterol as needed Solu-Medrol ordered Azithromycin ordered. Continue BiPAP started at the emergency department. Titrate oxygen supplementation as needed. Monitor BMP and CBC History of aortic valve replacement and history of DVT On Coumadin. INR is therapeutic. Continue Coumadin. Trend PT/INR. Stage I pressure ulcer on coccyx/intertrigo of groin Nystatin cream, Calmoseptine cream ordered. DVT prophylaxis: Not indicated since patient is therapeutic on Coumadin. Coumadin continued. Charges/Coding Visit Charges Inpatient E&M: 00491 Init Hosp L3
--- NOTE | 2020-12-27 03:54 | PCS.PANDOC ---
PANDEMIC DOCUMENTATION INITIATED: Date: 10/15/2020 Time: 190
[2020-12-27] MEDS: Ipratropium/Albuterol Sulfate 3 ML AMPUL.NEB INHALATION ×4 (07:02→19:51)
[2020-12-27] MEDS: 0.9% Saline Lock 10 ML Syringe IV ×2 (07:05→14:22)
[2020-12-27 07:07] LABS: Absolute Neutrophil Count 5.3 X10^3/uL (2.0-7.7); Basophil# 0.02 X10^3/uL; Basophil% 0.3 % (0-1); Eosinophil# 0.01 X10^3/uL; Eosinophils% 0.2 % (0-5); Hematocrit 37.5 % (40-54); Hemoglobin 11.6 g/dL (13.0-16.5); Lymphocyte % 8.1 % (19-41); Mean Corp Hgb Conc 30.9 g/dL (32-36); Mean Corpuscular Hgb 31.8 pg (27.0-32.0); Mean Corpuscular Volume 102.7 fL (80-94); Mean Platelet Vol. 12.2 fl (6.2-12.0); Monocyte# 0.35 X10^3/uL; Monocyte% 5.6 % (0-10); NRBC Flagged by Analyzer 0 % (0-5); Neutrophil # 5.31 X10^3/uL (2.7-7.7); Neutrophil % 85.5 % (47-70); POSITIVE DIFFERENTIAL YES; Platelet Count 100 K/mm3 (150-450); RBC Distribution Width CV 13.5 % (11.6-14.6); RBC Distribution Width SD 51.1 fl (35.1-43.9); Red Blood Count 3.65 M/mm3 (4.6-6.2); White Blood Count 6.2 K/mm3 (4.4-11.0)
[2020-12-27 07:14] LABS: Differential Indicated SCAN CRITERIA MET
[2020-12-27 07:31] LABS: Anion Gap 2 (5-15); BUN 27 mg/dL (7-18); BUN/Creat Ratio 27.8 RATIO (10-20); Chloride 103 mmol/L (98-107); Creatinine, Serum 0.97 mg/dL (0.70-1.30); EST Glomerular Filtration Rate 85 mL/min (>60); Est Glom Filt Rate - Afr Amer 103 mL/min (>60); Estimated Creatinine Clearance 85.03 ml/min; Glucose 134 mg/dL (74-106); Potassium 4.5 mmol/L (3.5-5.1); Sodium Level 140 mmol/L (136-145)
[2020-12-27 08:11] LABS: Differential Comment SCANNED
[2020-12-27] MEDS: Phenytoin Na 100 MG Capsule PO ×3 (08:26→21:07)
[2020-12-27] MEDS: Metoprolol Tartrate 25 MG Tablet 37.5 MG PO ×2 (09:40→21:08)
[2020-12-27] MEDS: Furosemide 20 MG Tablet PO (09:40)
[2020-12-27] MEDS: Enoxaparin 40 MG/0.4 ML Syringe SC (09:41)
[2020-12-27] MEDS: buPROPion (SR) 150 MG Tablet.SA PO (09:41)
[2020-12-27] MEDS: Menthol/Lanolin/Calamine/Znox 113 GM Tube 1 APPLIC TOPICAL ×2 (09:41→21:06)
[2020-12-27] MEDS: Pantoprazole Sodium 40 MG Tablet PO (09:41)
[2020-12-27] MEDS: Nystatin Powder 15gm Bottle 1 APPLIC TOPICAL ×2 (09:41→21:06)
--- NOTE | 2020-12-27 13:05 | CASEMGMT ---
QUIN ROLLINS assessment: Face to Face with patient for initial transition planning/care coordination assessment. QUIN ROLLINS introduced self and role at [facility], pt voices understanding and consents to assessment. Pt is sitting up in chair in no distress on 4L nc. Pt is A/Ox4 and answers all questions appropriately. Care providers, pharmacy, and demographics verified. Presentation: Pt w/ increased SOB, wears 4L nc at home-pt 88% on 4L Admitting dx: Acute COPD exac PCP: Elvis Specialists: [place] pultracy; Mela, cardio Preferred Pharmacy: [facility] Insurance: [facility] A/B, [facility] Prescription Benefit: Yes Living Will/HPOA: Pt states has LW/HPOA and is aware that they are not on file at [facility]. Pt states his sister, Suzette Rico, is HPOA. LNOK: Suzette Rico, sister Living Arrangements: Pt lives alone in 1 story apt with no steps and states no concerns at home. Pt has aide that assist with ADL's. Transportation: Pt states sister or aides drive and states no transportation concerns. DME/HHC: Pt states has the following equipment: grab bars, shower chair, cane, rollator, medical alert, and 4L nc continuous home oxygen thru [facility]. Pt states no need for any further DME. Pt states is active with [facility] for SN and has aides 5 days/week thru [place]. Pt has [employer] and MOW's. Pt states has a CM thru [facility] and [facility]. Pt states has been to and [facility] in the past. [facility] notified of pt admission and [facility] order placed. Pt states no concerns with going home at time of discharge. Pt is disabled. Pt does not smoke cigarettes or drink ETOH. Pt voices no further concerns/needs. CM to follow for increased home oxygen need and any further discharge planning/needs. Advised pt to ask for CM if any further questions/concerns/needs arise, voices understanding. Pt goal: Home w/ [facility] Plan: Home w/ [facility] [place] QUIN ROLLINS
--- NOTE | 2020-12-27 13:05 | CASEMGMT ---
QUIN ROLLINS assessment: Face to Face with patient for initial transition planning/care coordination assessment. QUIN ROLLINS introduced self and role at [facility], pt voices understanding and consents to assessment. Pt is sitting up in chair in no distress on 4L nc. Pt is A/Ox4 and answers all questions appropriately. Care providers, pharmacy, and demographics verified. Presentation: Pt w/ increased SOB, wears 4L nc at home-pt 88% on 4L Admitting dx: Acute COPD exac PCP: Elvis Specialists: [place] pultracy; Mela, cardio Preferred Pharmacy: [facility] Insurance: [facility] A/B, [facility] Prescription Benefit: Yes Living Will/HPOA: Pt states has LW/HPOA and is aware that they are not on file at [facility]. Pt states his sister, Suzette Rico, is HPOA. LNOK: Suzette Rico, sister Living Arrangements: Pt lives alone in 1 story apt with no steps and states no concerns at home. Pt has aide that assist with ADL's. Transportation: Pt states sister or aides drive and states no transportation concerns. DME/HHC: Pt states has the following equipment: grab bars, shower chair, cane, rollator, medical alert, and 2L nc continuous home oxygen thru [facility]. Pt states no need for any further DME. Pt states is active with [facility] for SN and has aides 5 days/week thru [facility]. Pt has [employer] and MOW's. Pt states has a CM thru [facility] and [facility]. Pt states has been to and [place] in the past. [facility] notified of pt admission and [facility] order placed. Pt states no concerns with going home at time of discharge. Pt is disabled. Pt does not smoke cigarettes or drink ETOH. Pt voices no further concerns/needs. CM to follow for increased home oxygen need and any further discharge planning/needs. Advised pt to ask for CM if any further questions/concerns/needs arise, voices understanding. Pt goal: Home w/ [facility] Plan: Home w/ [facility] [place] QUIN ROLLINS
[2020-12-27] MEDS: Ferrous Sulfate 325 MG Tablet PO (17:13)
[2020-12-27] MEDS: MELATONIN 10 MG TABLET 5 MG PO (21:06)
[2020-12-27] MEDS: Escitalopram Oxalate 10 MG Tablet PO (21:08)
[2020-12-28] VITALS (16 sets, daily range): BP systolic 111–125; BP diastolic 66–71; PULSE 53–89; RESP 12–23; TEMP 36.3–37; O2SAT 92–98
[2020-12-28 05:20] LABS: Absolute Lymphocyte Count 0.61 X10^3/uL (0.83-4.51); Absolute Neutrophil Count 3.5 X10^3/uL (2.0-7.7); Basophil# 0.01 X10^3/uL; Basophil% 0.2 % (0-1); Eosinophil# 0.02 X10^3/uL; Eosinophils% 0.4 % (0-5); Hematocrit 36.7 % (40-54); Hemoglobin 11.2 g/dL (13.0-16.5); Lymphocyte # 0.61 X10^3/ul (0.83-4.51); Lymphocyte % 13.5 % (19-41); Mean Corp Hgb Conc 30.5 g/dL (32-36); Mean Corpuscular Hgb 31.3 pg (27.0-32.0); Mean Corpuscular Volume 102.5 fL (80-94); Mean Platelet Vol. 12.3 fl (6.2-12.0); Monocyte# 0.32 X10^3/uL; Monocyte% 7.1 % (0-10); NRBC Flagged by Analyzer 0 % (0-5); Neutrophil # 3.54 X10^3/uL (2.7-7.7); Neutrophil % 78.4 % (47-70); POSITIVE COUNT YES; Platelet Count 92 K/mm3 (150-450); RBC Distribution Width CV 13.4 % (11.6-14.6); RBC Distribution Width SD 50.7 fl (35.1-43.9); Red Blood Count 3.58 M/mm3 (4.6-6.2); White Blood Count 4.5 K/mm3 (4.4-11.0)
[2020-12-28 05:26] LABS: International Normalized Ratio 2.7; Prothrombin Time (Protime)PT. 28.1 SECONDS (11.7-14.9)
[2020-12-28 05:43] LABS: Anion Gap 2 (5-15); BUN 27 mg/dL (7-18); BUN/Creat Ratio 30.2 RATIO (10-20); Calcium,Total 7.9 mg/dL (8.5-10.1); Chloride 101 mmol/L (98-107); EST Glomerular Filtration Rate 93 mL/min (>60); Est Glom Filt Rate - Afr Amer 113 mL/min (>60); Estimated Creatinine Clearance 91.65 ml/min; Glucose 120 mg/dL (74-106); Potassium 4.3 mmol/L (3.5-5.1); Sodium Level 139 mmol/L (136-145)
[2020-12-28] MEDS: Phenytoin Na 100 MG Capsule PO ×3 (06:17→21:09)
[2020-12-28] MEDS: Ipratropium/Albuterol Sulfate 3 ML AMPUL.NEB INHALATION ×3 (07:06→14:30)
[2020-12-28] MEDS: Aspirin E.C. 81 MG Tablet PO (08:57)
[2020-12-28] MEDS: Multivitamins,Therapeutic Tablet 1 TABLET PO (08:58)
[2020-12-28] MEDS: Menthol/Lanolin/Calamine/Znox 113 GM Tube 1 APPLIC TOPICAL ×2 (08:58→21:09)
[2020-12-28] MEDS: Ferrous Sulfate 325 MG Tablet PO ×2 (08:58→16:12)
[2020-12-28] MEDS: Furosemide 20 MG Tablet PO (08:59)
[2020-12-28] MEDS: Metoprolol Tartrate 25 MG Tablet 37.5 MG PO ×2 (09:00→21:10)
[2020-12-28] MEDS: Nystatin Powder 15gm Bottle 1 APPLIC TOPICAL ×2 (09:03→21:09)
[2020-12-28] MEDS: Ascorbic Acid 500 MG Tablet PO (09:04)
[2020-12-28] MEDS: Pantoprazole Sodium 40 MG Tablet PO (09:04)
[2020-12-28] MEDS: buPROPion (SR) 150 MG Tablet.SA PO (09:05)
[2020-12-28] MEDS: 0.9% Saline Lock 10 ML Syringe IV ×2 (09:16→14:43)
--- NOTE | 2020-12-28 09:43 | CASEMGMT ---
H&P and [facility] order faxed with facesheet to Sandra NEWSOME. SStjoselito TSAI CM
--- NOTE | 2020-12-28 13:58 | CASEMGMT ---
Patient is active with [facility]. SW called [facility] and spoke with Yoan Cates on the coverage line. Patient's rehabilitation caseworker is Avis Grande ([phone] and [phone]). Meliza Mahajan PHARMACY CLERK [employer]
--- NOTE | 2020-12-28 14:51 | CASEMGMT ---
Green sheet on chart for HHC,possible increased home O2, and direction home. Pt to be tested on 4L nc as this is his home dose. Aminta TSAI CM
--- NOTE | 2020-12-28 15:18 | NURSING ---
Read and reviewed SN documentation. Plan of reviewed with SN
--- NOTE | 2020-12-28 17:25 | PN.HOSP_ITS ---
Subjective Subjective Doing well, feels much better today. He still on his home O2 and is breathing a little better. Objective Data Objective Data Vital Signs: Vital Signs Temp Pulse Resp BP Pulse Ox 98.6 F 76 22 H 118/67 98 12/28/20 14:00 12/28/20 14:59 12/28/20 14:30 12/28/20 14:00 12/28/20 14:00 Oxygen Flow Rate (L/min) 4 Oxygen Delivery Method Nasal Cannula Weight: 191 lb 12.835 oz Body Mass Index (BMI) 28.3 Intake & Output: Intake and Output for Last 24 Hours 12/27/20 12/28/20 12/29/20 03:59 03:59 03:59 Intake Total 1500.50 / 1500.50 120 / 120 Output Total 900 / 900 600 / 600 Balance -900 / -900 1500.50 / 1500.50 -480 / -480 Lab / Micro Data Result Diagrams: 12/28/20 04:55 12/28/20 04:55 Labs: Laboratory Results - last 24 hr 12/28/20 04:55: PT 28.1 H, INR 2.7 12/28/20 04:55: WBC 4.5, RBC 3.58 L, Hgb 11.2 L, Hct 36.7 L, MCV 102.5 H, MCH 31.3, MCHC 30.5 L, RDW Std Deviation 50.7 H, RDW Coeff of Joseluis 13.4, Plt Count 92 L, MPV 12.3 H, Immature Gran % (Auto) 0.400, Neut % (Auto) 78.4 H, Lymph % (Auto) 13.5 L, [place] % (Auto) 7.1, Eos % (Auto) 0.4, Baso % (Auto) 0.2, Absolute Neuts (auto) 3.5, Absolute Lymphs (auto) 0.61 L, Nucleated RBC % 0 12/28/20 04:55: Sodium 139, Potassium 4.3, Chloride 101, Carbon Dioxide 36.0 H, Anion Gap 2 L, BUN 27 H, Creatinine 0.90, Estim Creat Clear Calc 91.65, Est GFR (MDRD) Af Amer 113, Est GFR (MDRD) Non-Af 93, BUN/Creatinine Ratio 30.2 H, Gl ucose 120 H, Calcium 7.9 L Micro: Microbiology 12/26/20 23:00 Nasal Secretion SARS-CoV-2 Antigen (Rapid) - Final Physical Exam Const alert, oriented x3 and no apparent distress General Appearance: cooperative HEENT normocephalic and moist oral mucous membranes Eyes PERRL, EOMs intact bilaterally and conjunctivae normal Neck supple and no JVD Resp normal respiratory effort, no retractions, no use of accessory muscles and clear to auscultation bilaterally Auscultation: Negative for crackles, rales, rhonchi or wheezes Cardio regular rate, regular rhythm, S1 normal heart sound, S2 normal heart sound and no murmurs GI soft to palpation, non-tender and non-distended; Negative for hepatosplenomegaly Extremity no clubbing, cyanosis or edema Skin no rashes or lesions noted Neuro no focal motor deficits and no sensory deficits noted Psych affect normal Appearance: appropriate Assessment & Plan Assessment/Plan (1) Acute on chronic respiratory failure with hypoxia: (2) Stage 4 very severe COPD by GOLD classification: (3) Mixed obstructive and restrictive ventilatory defect: (4) H/O aortic valve replacement: PLAN: 1. Acute on chronic hypoxic respiratory failure with stage IV severe COPD exacerbation -Continue with duo nebs as well as steroids -We will continue with azithromycin and discontinue it on discharge -He does have a history of a mixed obstructive and restrictive ventilatory defect, recommend that he follow-up with his associate media director on discharge 2. HTN/HLD/history of aortic valve replacement/history of DVT -Continue with Coumadin, monitor INR ?Blood pressure stable -Continue with Lasix -Continue with aspirin 3. Epilepsy -Stable -continue with his home seizure medications 4. Anxiety/depression -Stable -Continue Lexapro and Wellbutrin, would recommend that his Wellbutrin be monitored as an outpatient as it does lower his seizure threshold DVT: Coumadin Charges/Coding Visit Charges Inpatient E&M: 60167 Subs Hosp L2
[2020-12-28] MEDS: Escitalopram Oxalate 10 MG Tablet PO (21:10)
[2020-12-28] MEDS: MELATONIN 10 MG TABLET 5 MG PO (21:31)
[2020-12-29] VITALS (8 sets, daily range): BP systolic 120–130; BP diastolic 68–76; PULSE 57–69; RESP 16; TEMP 36.4–36.5; O2SAT 85–97
[2020-12-29] MEDS: Phenytoin Na 100 MG Capsule PO ×2 (05:23→14:01)
[2020-12-29] MEDS: 0.9% Saline Lock 10 ML Syringe IV (05:23)
[2020-12-29 07:03] LABS: Absolute Lymphocyte Count 0.76 X10^3/uL (0.83-4.51); Absolute Neutrophil Count 4.6 X10^3/uL (2.0-7.7); Basophil# 0.02 X10^3/uL; Basophil% 0.3 % (0-1); Eosinophil# 0.04 X10^3/uL; Eosinophils% 0.7 % (0-5); Hematocrit 36.4 % (40-54); Hemoglobin 11.4 g/dL (13.0-16.5); Lymphocyte # 0.76 X10^3/ul (0.83-4.51); Lymphocyte % 13.1 % (19-41); Mean Corp Hgb Conc 31.3 g/dL (32-36); Mean Corpuscular Hgb 31.8 pg (27.0-32.0); Mean Corpuscular Volume 101.4 fL (80-94); Mean Platelet Vol. 11.9 fl (6.2-12.0); Monocyte% 6.9 % (0-10); NRBC Flagged by Analyzer 0 % (0-5); Neutrophil # 4.57 X10^3/uL (2.7-7.7); Neutrophil % 78.5 % (47-70); Platelet Count 105 K/mm3 (150-450); RBC Distribution Width CV 13.4 % (11.6-14.6); Red Blood Count 3.59 M/mm3 (4.6-6.2); White Blood Count 5.8 K/mm3 (4.4-11.0)
[2020-12-29] MEDS: Ipratropium/Albuterol Sulfate 3 ML AMPUL.NEB INHALATION ×2 (07:07→11:13)
[2020-12-29 07:12] LABS: International Normalized Ratio 3.1; Prothrombin Time (Protime)PT. 31.4 SECONDS (11.7-14.9)
[2020-12-29 07:26] LABS: Anion Gap 2 (5-15); BUN 28 mg/dL (7-18); BUN/Creat Ratio 31.3 RATIO (10-20); Calcium,Total 8.2 mg/dL (8.5-10.1); Chloride 100 mmol/L (98-107); EST Glomerular Filtration Rate 93 mL/min (>60); Est Glom Filt Rate - Afr Amer 113 mL/min (>60); Estimated Creatinine Clearance 91.65 ml/min; Glucose 112 mg/dL (74-106); Potassium 4.1 mmol/L (3.5-5.1); Sodium Level 140 mmol/L (136-145)
[2020-12-29] MEDS: Metoprolol Tartrate 25 MG Tablet 37.5 MG PO (09:47)
[2020-12-29] MEDS: Multivitamins,Therapeutic Tablet 1 TABLET PO (09:47)
[2020-12-29] MEDS: Furosemide 20 MG Tablet PO (09:47)
[2020-12-29] MEDS: buPROPion (SR) 150 MG Tablet.SA PO (09:48)
[2020-12-29] MEDS: Ascorbic Acid 500 MG Tablet PO (09:48)
[2020-12-29] MEDS: Ferrous Sulfate 325 MG Tablet PO (09:48)
[2020-12-29] MEDS: Aspirin E.C. 81 MG Tablet PO (09:48)
[2020-12-29] MEDS: Pantoprazole Sodium 40 MG Tablet PO (09:48)
[2020-12-29] MEDS: Menthol/Lanolin/Calamine/Znox 113 GM Tube 1 APPLIC TOPICAL (10:11)
[2020-12-29] MEDS: Nystatin Powder 15gm Bottle 1 APPLIC TOPICAL (10:11)
--- NOTE | 2020-12-29 10:53 | PCM.DC ---
Discharge Instructions Diet Discharge Diet: Low fat / Low cholesterol Activity Discharge Activity: Return to Normal Activity Dressing / Incision Call your doctor if you observe: Fever of 101 or Higher, Shortness of breath, Dizziness, Fainting spells, Swelling in the ankles, Chest pain and Increased palpitations (irregular heartbeat) Follow Up Care Test Results: Test results from this visit will be discussed in further detail at your follow-up appointment, if applicable. Discharge Plan Admission Admit Date/Time: 12/27/20 02:16 Attending Provider: Live Humphrey Primary Care Provider: Jason Leal Discharge Orders/Prescriptions Prescriptions: New prednisone 20 mg tablet 40 mg PO DAILY Qty: 14 RF: 0 Continued aspirin [Adult Aspirin Regimen] 81 mg tablet,delayed release (DR/EC) 81 mg PO QDAY RF: 0 multivitamin [Multiple Vitamins] tablet 1 tab PO QDAY RF: 0 acetaminophen [Tylenol] 325 mg tablet 325 mg PO Q6H PRN (Reason: Pain) RF: 0 vitamin B complex [B Complex-Vitamin B12] Tablet 1 tab PO DAILY RF: 0 escitalopram oxalate 5 mg tablet 10 mg PO QHS RF: 0 warfarin 5 mg tablet 5 mg PO SUMOTUWEFRSA RF: 0 ferrous sulfate [Feosol] 325 mg (65 mg iron) tablet 325 mg PO BID RF: 0 alum-mag hydroxide-simeth 200-200-20 mg/5 mL suspension 30 ml PO Q4H PRN (Reason: Heartburn) RF: 0 pantoprazole 20 mg tablet,delayed release (DR/EC) 40 mg PO DAILY RF: 0 ascorbate calcium (vitamin C) 500 mg tablet 500 mg PO DAILY RF: 0 bupropion HCl [Wellbutrin SR] 150 mg tablet sustained-release 12 hr 150 mg PO DAILY RF: 0 melatonin 3 mg capsule 5 mg PO HS PRN (Reason: Insomnia) RF: 0 albuterol sulfate 2.5 MG/3 ML solution for nebulization 2.5 mg INHALATION Q4H PRN PRN (Reason: Sob &/Or Wheezing) RF: 0 Oxygen, Home [Home Oxygen] 2 - 4 lpm NASAL DAILY RF: 0 furosemide 20 mg tablet 20 mg PO DAILY RF: 0 potassium chloride 20 mEq tablet,ER particles/crystals 20 meq PO BID RF: 0 cholecalciferol (vitamin D3) 1,250 mcg (50,000 unit) capsule 50,000 unit PO TUFR RF: 0 phenytoin sodium extended [Dilantin Extended] 100 mg capsule 100 mg PO TID RF: 0 metoprolol tartrate 25 mg tablet 37.5 mg PO BID RF: 0 Trelegy Ellipta 200-62.5-25 mcg blister with device 1 inh inhalation DAILY RF: 0 warfarin 6 mg tablet 6 mg PO TH RF: 0 Referrals / Follow Up: Mark Marlow DO [STAFF PHYSICIAN] - Jason Leal DO [Primary Care Provider] - Within 1 Week Disposition Disposition (needs filled in before D/C Order can be placed): Assisted Living
--- NOTE | 2020-12-29 12:38 | PCM.DC.SUM ---
Providers Date of Admission: 12/27/20 Primary Care Physician: Dr. Jason Leal DO Reason For Visit: ACUTE COPD EXACERBATION Diagnosis Discharge Diagnosis (1) Acute on chronic respiratory failure with hypoxia: Status: Chronic Code(s): J96.21 - Acute and chronic respiratory failure with hypoxia (2) Stage 4 very severe COPD by GOLD classification: Status: Chronic Code(s): J44.9 - Chronic obstructive pulmonary disease, unspecified (3) Mixed obstructive and restrictive ventilatory defect: Status: Chronic (4) H/O aortic valve replacement: Status: Resolved Code(s): Z95.2 - Presence of prosthetic heart valve Medications at Discharge Home Medications Oxygen, Home [Home Oxygen] 2 - 4 lpm NASAL DAILY 04/05/16 albuterol sulfate 2.5 mg INHALATION Q4H PRN PRN 04/05/16 aspirin 81 mg tablet,delayed release 81 mg PO QDAY 03/17/17 multivitamin 1 tab PO QDAY 03/17/17 acetaminophen 325 mg tablet 325 mg PO Q6H PRN tab 01/04/20 vitamin B complex 1 tab PO DAILY 01/04/20 aluminum-mag hydroxide-simethicone 200 mg-200 mg-20 mg/5 mL oral susp 30 ml PO Q4H PRN ml 04/18/20 ascorbate calcium (vitamin C) 500 mg tablet 500 mg PO DAILY 04/18/20 bupropion HCl 150 mg tablet,12 hr sustained-release 150 mg PO DAILY 04/18/20 escitalopram oxalate 5 mg tablet 10 mg PO QHS tab 04/18/20 ferrous sulfate 325 mg (65 mg iron) tablet 325 mg PO BID 04/18/20 melatonin 3 mg capsule 5 mg PO HS PRN cap 04/18/20 pantoprazole 20 mg tablet,delayed release 40 mg PO DAILY 04/18/20 warfarin 5 mg tablet 5 mg PO SUMOTUWEFRSA 04/18/20 furosemide 20 mg PO DAILY 10/26/20 Trelegy Ellipta 1 inh INHALATION DAILY 12/27/20 cholecalciferol (vitamin D3) 50,000 unit PO TUFR 12/27/20 metoprolol tartrate 37.5 mg PO BID 12/27/20 phenytoin sodium extended [Dilantin Extended] 100 mg PO TID 12/27/20 potassium chloride 20 meq PO BID 12/27/20 warfarin 6 mg PO TH 12/27/20 prednisone 40 mg PO DAILY #14 tab 12/29/20 Hospital Course Operations None Procedures None Summary of Care Provided Minutes Spent on Discharge: 35 Hospital Course: Per HPI: KAYLEEN AWAD, is a 55 M with a significant history of MRDD; former smoker; mixed obstructive and restrictive ventilatory defect on chronic home nasal cannula oxygenation who presents to the emergency department with a persistent shortness of breath that started on the same day of presentation after patient had eating his supper. His symptoms was persistent. Reportedly patient was placed on noninvasive pressure ventilation by paramedics. Patient denies any wheezes or cough. Hospital Course: 1. Acute on chronic hypoxic respiratory failure with stage IV severe COPD exacerbation -Continue with duo nebs as well as steroids -We will continue with azithromycin and discontinue it on discharge -He does have a history of a mixed obstructive and restrictive ventilatory defect, recommend that he follow-up with his caustic cresylate shift superintendent on discharge -He is feeling much better today, I discussed with him the possibility for discharge and he expressed understanding of this risk and benefits of going home and he would like to go home today. He states that he is breathing much better and is back to his baseline. He is received 3 doses of azithromycin and will discontinue this on discharge. We will continue with prednisone for 7 more days as well as his breathing treatments on discharge. No other changes were made to his medications. I do recommend that he follow-up with his PCP in 3 to 5 days and follow-up with pulmonology as previously scheduled 2. HTN/HLD/history of aortic valve replacement/history of DVT -Continue with Coumadin, monitor INR ?Blood pressure stable -Continue with Lasix -Continue with aspirin 3. Epilepsy -Stable -continue with his home seizure medications 4. Anxiety/depression -Stable -Continue Lexapro and Wellbutrin, would recommend that his Wellbutrin be monitored as an outpatient as it does lower his seizure threshold Physical Exam Const alert, oriented x3 and no apparent distress General Appearance: cooperative HEENT normocephalic and moist oral mucous membranes Eyes PERRL, EOMs intact bilaterally and conjunctivae normal Neck supple and no JVD Resp normal respiratory effort, no retractions, no use of accessory muscles and clear to auscultation bilaterally Auscultation: Negative for crackles, rales, rhonchi or wheezes Cardio regular rate, regular rhythm, S1 normal heart sound, S2 normal heart sound and no murmurs GI soft to palpation, non-tender and non-distended; Negative for hepatosplenomegaly Extremity no clubbing, cyanosis or edema Skin no rashes or lesions noted Neuro no focal motor deficits and no sensory deficits noted Psych affect normal Appearance: appropriate Weight / BMI Weight Weight: 191 lb 12.835 oz Body Mass Index (BMI) 28.3 ABG / Lab / Microbiology Data Result Diagrams: 12/29/20 06:37 12/29/20 06:37 Laboratory: Laboratory Results - last 24 hr 12/29/20 06:37: PT 31.4 H, INR 3.1 12/29/20 06:37: WBC 5.8, RBC 3.59 L, Hgb 11.4 L, Hct 36.4 L, MCV 101.4 H, MCH 31.8, MCHC 31.3 L, RDW Std Deviation 50.0 H, RDW Coeff of Joseluis 13.4, Plt Count 105 L, MPV 11.9, Immature Gran % (Auto) 0.500, Neut % (Auto) 78.5 H, Lymph % (Auto) 13.1 L, [place] % (Auto) 6.9, Eos % (Auto) 0.7, Baso % (Auto) 0.3, Absolute Neuts (auto) 4.6, Absolute Lymphs (auto) 0.76 L, Nucleated RBC % 0 12/29/20 06:37: Sodium 140, Potassium 4.1, Chloride 100, Carbon Dioxide 38.0 H, Anion Gap 2 L, BUN 28 H, Creatinine 0.90, Estim Creat Clear Calc 91.65, Est GFR (MDRD) Af Amer 113, Est GFR (MDRD) Non-Af 93, BUN/Creatinine Ratio 31.3 H, Glucose 112 H, Calcium 8.2 L Microbiology: Microbiology 12/26/20 23:00 Nasal Secretion SARS-CoV-2 Antigen (Rapid) - Final D/C Instructions Discharge Diet: Low fat / Low cholesterol Call your doctor if you observe: Fever of 101 or Higher, Shortness of breath, Dizziness, Fainting spells, Swelling in the ankles, Chest pain and Increased palpitations (irregular heartbeat) Meaningful Use Info Meaningful Use Diagnoses (Choose all that apply): None applicable Discharge Plan Admission Admit Date/Time: 10/28/21 02:16 Attending Provider: Live Humphrey Primary Care Provider: Jason Leal Discharge Orders/Prescriptions Prescriptions: New prednisone 20 mg tablet 40 mg PO DAILY Qty: 14 RF: 0 Continued aspirin [Adult Aspirin Regimen] 81 mg tablet,delayed release (DR/EC) 81 mg PO QDAY RF: 0 multivitamin [Multiple Vitamins] tablet 1 tab PO QDAY RF: 0 acetaminophen [Tylenol] 325 mg tablet 325 mg PO Q6H PRN (Reason: Pain) RF: 0 vitamin B complex [B Complex-Vitamin B12] Tablet 1 tab PO DAILY RF: 0 escitalopram oxalate 5 mg tablet 10 mg PO QHS RF: 0 warfarin 5 mg tablet 5 mg PO SUMOTUWEFRSA RF: 0 ferrous sulfate [Feosol] 325 mg (65 mg iron) tablet 325 mg PO BID RF: 0 alum-mag hydroxide-simeth 200-200-20 mg/5 mL suspension 30 ml PO Q4H PRN (Reason: Heartburn) RF: 0 pantoprazole 20 mg tablet,delayed release (DR/EC) 40 mg PO DAILY RF: 0 ascorbate calcium (vitamin C) 500 mg tablet 500 mg PO DAILY RF: 0 bupropion HCl [Wellbutrin SR] 150 mg tablet sustained-release 12 hr 150 mg PO DAILY RF: 0 melatonin 3 mg capsule 5 mg PO HS PRN (Reason: Insomnia) RF: 0 albuterol sulfate 2.5 MG/3 ML solution for nebulization 2.5 mg INHALATION Q4H PRN PRN (Reason: Sob &/Or Wheezing) RF: 0 Oxygen, Home [Home Oxygen] 2 - 4 lpm NASAL DAILY RF: 0 furosemide 20 mg tablet 20 mg PO DAILY RF: 0 potassium chloride 20 mEq tablet,ER particles/crystals 20 meq PO BID RF: 0 cholecalciferol (vitamin D3) 1,250 mcg (50,000 unit) capsule 50,000 unit PO TUFR RF: 0 phenytoin sodium extended [Dilantin Extended] 100 mg capsule 100 mg PO TID RF: 0 metoprolol tartrate 25 mg tablet 37.5 mg PO BID RF: 0 Trelegy Ellipta 200-62.5-25 mcg blister with device 1 inh inhalation DAILY RF: 0 warfarin 6 mg tablet 6 mg PO TH RF: 0 Referrals / Follow Up: Mark Marlow DO [STAFF PHYSICIAN] - Jason Leal DO [Primary Care Provider] - Within 1 Week Disposition Disposition (needs filled in before D/C Order can be placed): Assisted Living Charges/Coding Visit Charges Inpatient E&M: 45178 Disch Hosp
== END 2020-12-29 14:40 | disposition home health service (06) | DRG 190 ==
LOC: ED 12-27 02:23 → PCU 12-27 02:29
PROVIDERS: Admitting Provider Hospitalist; Emergency Provider Emergency Medicine; PCP Family Medicine; Visit Provider Family Medicine
DX: J44.1 Chronic obstructive pulmonary disease with (acute) exacerbation (principal); J96.21 Acute and chronic respiratory failure with hypoxia; I49.3 Ventricular premature depolarization; I44.4 Left anterior fascicular block; I45.10 Unspecified right bundle-branch block; L89.151 Pressure ulcer of sacral region, stage 1; L89.891 Pressure ulcer of other site, stage 1; J98.4 Other disorders of lung; E66.9 Obesity, unspecified; E78.00 Pure hypercholesterolemia, unspecified; E78.5 Hyperlipidemia, unspecified; F32.A Depression, unspecified; F41.9 Anxiety disorder, unspecified; G40.909 Epilepsy, unspecified, not intractable, without status epilepticus; G47.10 Hypersomnia, unspecified; I11.0 Hypertensive heart disease with heart failure; I50.9 Heart failure, unspecified; F79 Unspecified intellectual disabilities; E07.9 Disorder of thyroid, unspecified; K21.9 Gastro-esophageal reflux disease without esophagitis; M19.90 Unspecified osteoarthritis, unspecified site; Z68.30 Body mass index [BMI] 30.0-30.9, adult; Z79.01 Long term (current) use of anticoagulants; Z86.718 Personal history of other venous thrombosis and embolism; Z87.891 Personal history of nicotine dependence; Z95.2 Presence of prosthetic heart valve; Z99.81 Dependence on supplemental oxygen
CPT/HCPCS: 36415; 71045; 80048; 80053; 83605; 83880; 84484; 85025; 85610; 87040; 87426; 93005; 94002; 94003; 94640; 97110; 97162; 97166; 97530; 99285; J7050; A4216; J1940

== ENCOUNTER 2020-12-29 21:37 | Inpatient (IN) | payer MEDICARE, MEDICAID, SELFPAY ==
[2020-12-29] VITALS (11 sets, daily range): BP systolic 136–158; BP diastolic 80–94; PULSE 86–114; RESP 12–33; TEMP 36.3–37; O2SAT 73–100; BMI 26.8; BMI 28.6
--- NOTE | 2020-12-29 21:45 | RAD_ITS ---
STUDY: X-RAY CHEST REASON FOR EXAM: Male, 55 years old. sob TECHNIQUE: AP COMPARISON: 12/26/2020 FINDINGS: EKG leads project over the chest. There are interstitial fibrotic changes of the lungs. Lungs are hyperexpanded. There is no demonstrated pleural abnormality. Normal size heart. Normal mediastinum and joselito. Normal visualized pulmonary arteries. There is atherosclerotic calcification of the aortic arch with tortuosity. There is demineralization of the osseous structures. Normal visualized ribs, clavicles, and shoulders. There is no demonstrated abnormality of the visualized soft tissue structures of the upper abdomen. RAD/Chest 1 View (Portable) IMPRESSION: 1. No acute cardiopulmonary process. Stable. Electronically Signed: Michael Brown MD ([place]) at 22:07 EDT , Service support ,
--- NOTE | 2020-12-29 21:47 | EKG12_ITS ---
Test Reason : SOB Blood Pressure : / mmHG Vent. Rate : 115 BPM Atrial Rate : 115 BPM P-R Int : 116 ms QRS Dur : 172 ms QT Int : 400 ms P-R-T Axes : 068 -78 079 degrees QTc Int : 553 ms Sinus tachycardia with occasional Premature ventricular complexes Right bundle branch block Left anterior fascicular block Bifascicular block Abnormal ECG Confirmed by GRAYSON HEARD, JALIL ([id number]), editor & co founder JAIDEN KANG ([id number]) on 01/01/2021 9:33:38 AM Referred By: DELORIS Confirmed By:JALIL GLAICIA MD
--- NOTE | 2020-12-29 21:50 | CPS ---
patient arrived via squad with ppv in use. patient alert and answering questions. dr. olvera gave verbal order for bipap setup.
[2020-12-29 21:55] LABS: Absolute Neutrophil Count 11.9 X10^3/uL (2.0-7.7); Basophil# 0.08 X10^3/uL; Basophil% 0.5 % (0-1); Eosinophil# 0.12 X10^3/uL; Eosinophils% 0.7 % (0-5); Hematocrit 44.1 % (40-54); Hemoglobin 13.6 g/dL (13.0-16.5); Lymphocyte % 23.2 % (19-41); Mean Corp Hgb Conc 30.8 g/dL (32-36); Mean Corpuscular Hgb 31.9 pg (27.0-32.0); Mean Corpuscular Volume 103.5 fL (80-94); Mean Platelet Vol. 11.7 fl (6.2-12.0); Monocyte% 5.8 % (0-10); NRBC Flagged by Analyzer 0 % (0-5); Neutrophil # 11.85 X10^3/uL (2.7-7.7); Neutrophil % 68.7 % (47-70); Platelet Count 261 K/mm3 (150-450); RBC Distribution Width CV 13.6 % (11.6-14.6); RBC Distribution Width SD 51.8 fl (35.1-43.9); Red Blood Count 4.26 M/mm3 (4.6-6.2); White Blood Count 17.2 K/mm3 (4.4-11.0)
[2020-12-29 22:07] LABS: International Normalized Ratio 2.6; Prothrombin Time (Protime)PT. 26.7 SECONDS (11.7-14.9)
[2020-12-29 22:21] LABS: BNP,B-Type NATRIURETIC PEPTIDE 85.6 pg/mL (0-100)
[2020-12-29 22:22] LABS: Anion Gap 4 (5-15); BUN 33 mg/dL (7-18); BUN/Creat Ratio 22.9 RATIO (10-20); Calcium,Total 8.5 mg/dL (8.5-10.1); Chloride 99 mmol/L (98-107); Creatinine, Serum 1.44 mg/dL (0.70-1.30); EST Glomerular Filtration Rate 54 mL/min (>60); Est Glom Filt Rate - Afr Amer 65 mL/min (>60); Estimated Creatinine Clearance 62.87 ml/min; Glucose 177 mg/dL (74-106); Potassium 4.4 mmol/L (3.5-5.1); Sodium Level 139 mmol/L (136-145); Troponin-I HS 12 pg/mL (3.0-78.0)
--- NOTE | 2020-12-29 22:30 | EX.ED.DYSGE1 ---
HPI History of Present Illness Chief Complaint: Shortness of Breath Informant: patient and EMS Narrative Narrative: Patient brought in by EMS secondary to respiratory distress. For call report noting patient was unresponsive and they were bagging him. He reportedly had recently been discharged from the hospital for COPD/CHF. On arrival to the emergency room medic is assisting the patient's respirations with Ambu bag. When placed on monitor patient has an O2 sat of 100%. He will open his eyes and nod to answer questions. On review of records patient was admitted to the hospital December 26 and discharged earlier today. Patient was to continue prednisone on discharge. He received Zithromax in the hospital but this was not continued on discharge. Patient states since arriving home today his oxygen levels would continue to drop periodically. EMS states the patient was able to stand and pivot to the cot, but once being placed in the emergency squad had decreased level of consciousness and increased work of breathing. At this time patient denies chest pain. [facility] Medical History (Updated 12/29/20 @ 22:[address] Tiffany Tripathi MD) Alkaline phosphatase elevation Aortic valve disease Bilateral leg edema Cholelithiasis Chronic hypoxemic respiratory failure COPD (chronic obstructive pulmonary disease) DVT (deep venous thrombosis) Eczema of hand GERD (gastroesophageal reflux disease) History of Coumadin therapy HTN (hypertension) Hyperlipidemia Hypersomnia Hypersomnia Hypoxemic respiratory failure, chronic Iatrogenic pneumothorax Learning disability Mixed obstructive and restrictive ventilatory defect Mood disorder Obesity Seizure disorder Shortness of breath varicose veins Ventricular septal defect Home Medications Oxygen, Home [Home Oxygen] 2 - 4 lpm NASAL DAILY 04/05/16 [History Last Taken 12/27/20] albuterol sulfate 2.5 mg INHALATION Q4H PRN PRN 04/05/16 [History Last Taken Unknown] aspirin 81 mg tablet,delayed release 81 mg PO QDAY 03/17/17 [History Last Taken Unknown] multivitamin 1 tab PO QDAY 03/17/17 [History Last Taken Unknown] acetaminophen 325 mg tablet 325 mg PO Q6H PRN tab 01/04/20 [History Last Taken Unknown] vitamin B complex 1 tab PO DAILY 01/04/20 [History Last Taken Unknown] aluminum-mag hydroxide-simethicone 200 mg-200 mg-20 mg/5 mL oral susp 30 ml PO Q4H PRN ml 04/18/20 [History Last Taken Unknown] ascorbate calcium (vitamin C) 500 mg tablet 500 mg PO DAILY 04/18/20 [History Last Taken Unknown] bupropion HCl 150 mg tablet,12 hr sustained-release 150 mg PO DAILY 04/18/20 [History Last Taken Unknown] escitalopram oxalate 5 mg tablet 10 mg PO QHS tab 04/18/20 [History Last Taken Unknown] ferrous sulfate 325 mg (65 mg iron) tablet 325 mg PO BID 04/18/20 [History Last Taken Unknown] melatonin 3 mg capsule 5 mg PO HS PRN cap 04/18/20 [History Last Taken Unknown] pantoprazole 20 mg tablet,delayed release 40 mg PO DAILY 04/18/20 [History Last Taken Unknown] warfarin 5 mg tablet 5 mg PO SUMOTUWEFRSA 04/18/20 [History Last Taken Unknown] furosemide 20 mg PO DAILY 10/26/20 [History Last Taken Unknown] Trelegy Ellipta 1 inh INHALATION DAILY 12/27/20 [History Last Taken Unknown] cholecalciferol (vitamin D3) 50,000 unit PO TUFR 12/27/20 [History Last Taken Unknown] metoprolol tartrate 37.5 mg PO BID 12/27/20 [History Last Taken Unknown] phenytoin sodium extended [Dilantin Extended] 100 mg PO TID 12/27/20 [History Last Taken Unknown] potassium chloride 20 meq PO BID 12/27/20 [History Last Taken Unknown] warfarin 6 mg PO TH 12/27/20 [History Last Taken Unknown] prednisone 40 mg PO DAILY #14 tab 12/29/20 [Rx Last Taken Unknown] Allergy/AdvReac Type Severity Reaction Status Date / Time No Known Allergies Allergy Verified 12/29/20 21:37 Family History Father Lung cancer Osteoarthritis Mother Diabetes Thyroid disorder High cholesterol Breast cancer Grandmother Heart disease CVA (cerebral vascular accident) Surgical History Aortic valve replaced avr and aortic homograft closure H/O aortic valve replacement H/O hernia repair S/P VSD repair Social History Smoking Status: Former smoker quit date: 03/02/12 pack-years: 40 Tobacco: How many years used: 35 second hand exposure: No alcohol intake: never substance use type: does not use ROS ROS ED Constitutional Constitutional ED: Denies chills or fever(s) Eyes Eyes: Denies change in vision ENT ENT ED: Denies rhinorrhea Cardiovascular Cardiovascular: Denies chest pain Respiratory/Chest Respiratory/Chest: Reports cough and dyspnea Gastrointestinal Gastrointestinal: Denies abdominal pain, diarrhea, nausea or vomiting Integumentary Denies rash Endocrine Endocrinology: Denies polydipsia or polyuria Allergic/Immunologic Allergic/Immunologic ED: Denies urticaria EXAM Physical Exam Const Vital Signs: 12/29/20 21:38 12/29/20 21:41 12/29/20 21:42 Temperature 98.0 F 98.0 F 98.0 F Temperature Source Temporal Temporal Temporal Pulse Rate 111 H 108 H 106 H Respiratory Rate 23 H 17 18 Respiratory Effort Respiratory Depth Respiratory Pattern Blood Pressure 156/94 H 156/94 H 156/94 H Blood Pressure Mean 114 114 114 Pulse Ox 99 99 100 Oxygen Delivery Method Ambu-Bag Bi-pap Ambu-Bag Oxygen Flow Rate (L/min) 15 15 Fraction of Inspired Oxygen (FIO2) 50 12/29/20 21:46 12/29/20 21:50 Temperature Temperature Source Pulse Rate 86 Respiratory Rate 26 H Respiratory Effort Short of Breath Labored Respiratory Depth Shallow Respiratory Pattern Tachypnea Tachypnea Blood Pressure Blood Pressure Mean Pulse Ox 97 Oxygen Delivery Method Bi-pap Bi-pap Oxygen Flow Rate (L/min) Fraction of Inspired Oxygen (FIO2) 50 35 Positive well nourished and well developed General Appearance ED: well developed HEENT Reports moist mucous membranes Eyes PERRL and EOMs intact bilaterally Neck supple Chest Wall inspection of chest normal and palpation of chest normal Resp Auscultation: diminished lung sounds Cardio Rate: tachycardic GI normal to inspection, nondistended, normoactive bowel sounds and non-tender Palpation: soft Extremity General Extremety ED: Yes edema General Extremity: edema Neuro Neuro Narrative: No focal neurologic deficits. Sensorium / Orientation: alert Skin no rashes or lesions noted MDM MDM MDM Narrative Medical decision making narrative: Patient placed on BiPAP on arrival. FiO2 quickly turned down to 35%. Patient's O2 sat at this time is 97%. Lab work, EKG, chest x-ray obtained. Lab Data Attestation: I reviewed the patient's lab results. Labs: Laboratory Results - last 24 hr 12/29/20 12/29/20 12/29/20 21:41 21:41 21:41 WBC 17.2 H RBC 4.26 L Hgb 13.6 Hct 44.1 MCV 103.5 H MCH 31.9 MCHC 30.8 L RDW Std Deviation 51.8 H RDW Coeff of Joseluis 13.6 Plt Count 261 MPV 11.7 Immature Gran % (Auto) 1.100 H Neut % (Auto) 68.7 Lymph % (Auto) 23.2 [place] % (Auto) 5.8 Eos % (Auto) 0.7 Baso % (Auto) 0.5 Absolute Neuts (auto) 11.9 H Absolute Lymphs (auto) 4.00 Nucleated RBC % 0 PT INR Sodium 139 Potassium 4.4 Chloride 99 Carbon Dioxide 36.0 H Anion Gap 4 L BUN 33 H Creatinine 1.44 H Estim Creat Clear Calc 62.87 Est GFR (MDRD) Af Amer 65 Est GFR (MDRD) Non-Af 54 L BUN/Creatinine Ratio 22.9 H Glucose 177 H Calcium 8.5 Troponin I High Sens 12 B-Natriuretic Peptide 85.6 12/29/20 21:41 WBC RBC Hgb Hct MCV MCH MCHC RDW Std Deviation RDW Coeff of Joseluis Plt Count MPV Immature Gran % (Auto) Neut % (Auto) Lymph % (Auto) [place] % (Auto) Eos % (Auto) Baso % (Auto) Absolute Neuts (auto) Absolute Lymphs (auto) Nucleated RBC % PT 26.7 H INR 2.6 Sodium Potassium Chloride Carbon Dioxide Anion Gap BUN Creatinine Estim Creat Clear Calc Est GFR (MDRD) Af Amer Est GFR (MDRD) Non-Af BUN/Creatinine Ratio Glucose Calcium Troponin I High Sens B-Natriuretic Peptide Radiography Chest X-Ray - ED: 1 View, Read by ED Physician and Chronic Changes Diagnostic Testing: Clinical Impression(s) from Imaging Studies Chest X-Ray 12/29/20 21:45 IMPRESSION: 1. No acute cardiopulmonary process. Stable. Electronically Signed: Michael Brown MD (Brooks) at 22:07 EDT , Service support , EKG Initial EKG: Interpretation: Sinus Tachycardia (Sinus tachycardia at 115 with bifascicular block. No significant change when compared to prior study of December 26, 2020.) Treatment and Re-Evaluation Comments:: Repeat evaluation patient sitting upright in bed with improved respiratory rate. He is in no acute distress. Patient's white count is elevated today, I suspect secondary to distress that he was experiencing earlier. No focal infiltrate noted on x-ray. BNP is 85, improving when compared to prior values. Troponin negative at 12. INR is therapeutic at 2.6. At this time patient be discussed with hospitalist for admission. I anticipate he will be able to come down to nasal cannula shortly but will require observation. Discharge Plan Triage Chief Complaint: Shortness of Breath ED Provider: Tiffany Tripathi Dx/Rx/DC Orders Clinical Impression: COPD exacerbation Prescriptions: No Action aspirin [Adult Aspirin Regimen] 81 mg tablet,delayed release (DR/EC) 81 mg PO QDAY RF: 0 multivitamin [Multiple Vitamins] tablet 1 tab PO QDAY RF: 0 acetaminophen [Tylenol] 325 mg tablet 325 mg PO Q6H PRN (Reason: Pain) RF: 0 vitamin B complex [B Complex-Vitamin B12] Tablet 1 tab PO DAILY RF: 0 escitalopram oxalate 5 mg tablet 10 mg PO QHS RF: 0 warfarin 5 mg tablet 5 mg PO SUMOTUWEFRSA RF: 0 ferrous sulfate [Feosol] 325 mg (65 mg iron) tablet 325 mg PO BID RF: 0 alum-mag hydroxide-simeth 200-200-20 mg/5 mL suspension 30 ml PO Q4H PRN (Reason: Heartburn) RF: 0 pantoprazole 20 mg tablet,delayed release (DR/EC) 40 mg PO DAILY RF: 0 ascorbate calcium (vitamin C) 500 mg tablet 500 mg PO DAILY RF: 0 bupropion HCl [Wellbutrin SR] 150 mg tablet sustained-release 12 hr 150 mg PO DAILY RF: 0 melatonin 3 mg capsule 5 mg PO HS PRN (Reason: Insomnia) RF: 0 albuterol sulfate 2.5 MG/3 ML solution for nebulization 2.5 mg INHALATION Q4H PRN PRN (Reason: Sob &/Or Wheezing) RF: 0 Oxygen, Home [Home Oxygen] 2 - 4 lpm NASAL DAILY RF: 0 furosemide 20 mg tablet 20 mg PO DAILY RF: 0 potassium chloride 20 mEq tablet,ER particles/crystals 20 meq PO BID RF: 0 cholecalciferol (vitamin D3) 1,250 mcg (50,000 unit) capsule 50,000 unit PO TUFR RF: 0 phenytoin sodium extended [Dilantin Extended] 100 mg capsule 100 mg PO TID RF: 0 metoprolol tartrate 25 mg tablet 37.5 mg PO BID RF: 0 Trelegy Ellipta 200-62.5-25 mcg blister with device 1 inh inhalation DAILY RF: 0 warfarin 6 mg tablet 6 mg PO TH RF: 0 prednisone 20 mg tablet 40 mg PO DAILY Qty: 14 RF: 0 Primary Care Provider: Jason Leal Referrals: Jason Leal DO [Primary Care Provider] - Disposition Disposition: Acute Care Hospital [facility]
--- NOTE | 2020-12-29 22:46 | HP.PCM.HOS_ITS ---
HPI - General General Date of Admission: 12/29/20 Date of Service: 12/29/20 Chief Complaint: Unresponsive episode HPI Narrative KAYLEEN AWAD, is a 55 M with a significant history of MRDD; former smoker; mixed obstructive and restrictive ventilatory defect on chronic home nasal cannula oxygenation who presents to the emergency department same day after discharge reportedly with unresponsive episode requiring bagging by EMS. At the emergent department patient was initially placed on BiPAP at 50% FiO2 and then wean down to 35%. Patient reported that while at home his oxygen saturation was dropping. And while at emergency department and even on BiPAP with appropriate oxygen saturation ED doctor reported that patient complained that his oxygen saturation was dropping. While at the emergency department he was further weaned down to his normal 4 L and his oxygen saturation remained at 97 to 98% at rest. With ambulation his oxygen saturation dropped to 87% on 4L Nasal cannula (that he reportedly use at home) and he complained of dizziness. [facility] Medical History Alkaline phosphatase elevation Aortic valve disease Bilateral leg edema Cholelithiasis Chronic hypoxemic respiratory failure COPD (chronic obstructive pulmonary disease) DVT (deep venous thrombosis) Eczema of hand GERD (gastroesophageal reflux disease) History of Coumadin therapy HTN (hypertension) Hyperlipidemia Hypersomnia Hypersomnia Hypoxemic respiratory failure, chronic Iatrogenic pneumothorax Learning disability Mixed obstructive and restrictive ventilatory defect Mood disorder Obesity Seizure disorder Shortness of breath varicose veins Ventricular septal defect Home Medications Oxygen, Home [Home Oxygen] 2 - 4 lpm NASAL DAILY 04/05/16 [History Last Taken 12/27/20] albuterol sulfate 2.5 mg INHALATION Q4H PRN PRN 04/05/16 [History Last Taken Unknown] aspirin 81 mg tablet,delayed release 81 mg PO QDAY 03/17/17 [History Last Taken Unknown] multivitamin 1 tab PO QDAY 03/17/17 [History Last Taken Unknown] acetaminophen 325 mg tablet 325 mg PO Q6H PRN tab 01/04/20 [History Last Taken Unknown] vitamin B complex 1 tab PO DAILY 01/04/20 [History Last Taken Unknown] aluminum-mag hydroxide-simethicone 200 mg-200 mg-20 mg/5 mL oral susp 30 ml PO Q4H PRN ml 04/18/20 [History Last Taken Unknown] ascorbate calcium (vitamin C) 500 mg tablet 500 mg PO DAILY 04/18/20 [History Last Taken Unknown] bupropion HCl 150 mg tablet,12 hr sustained-release 150 mg PO DAILY 04/18/20 [History Last Taken Unknown] escitalopram oxalate 5 mg tablet 10 mg PO QHS tab 04/18/20 [History Last Taken Unknown] ferrous sulfate 325 mg (65 mg iron) tablet 325 mg PO BID 04/18/20 [History Last Taken Unknown] melatonin 3 mg capsule 5 mg PO HS PRN cap 04/18/20 [History Last Taken Unknown] pantoprazole 20 mg tablet,delayed release 40 mg PO DAILY 04/18/20 [History Last Taken Unknown] warfarin 5 mg tablet 5 mg PO SUMOTUWEFRSA 04/18/20 [History Last Taken Unknown] furosemide 20 mg PO DAILY 10/26/20 [History Last Taken Unknown] Trelegy Ellipta 1 inh INHALATION DAILY 12/27/20 [History Last Taken Unknown] cholecalciferol (vitamin D3) 50,000 unit PO TUFR 12/27/20 [History Last Taken Unknown] metoprolol tartrate 37.5 mg PO BID 12/27/20 [History Last Taken Unknown] phenytoin sodium extended [Dilantin Extended] 100 mg PO TID 12/27/20 [History Last Taken Unknown] potassium chloride 20 meq PO BID 12/27/20 [History Last Taken Unknown] warfarin 6 mg PO TH 12/27/20 [History Last Taken Unknown] prednisone 40 mg PO DAILY #14 tab 12/29/20 [Rx Last Taken Unknown] Allergy/AdvReac Type Severity Reaction Status Date / Time No Known Allergies Allergy Verified 12/29/20 21:37 Family History Father Lung cancer Osteoarthritis Mother Diabetes Thyroid disorder High cholesterol Breast cancer Grandmother Heart disease CVA (cerebral vascular accident) Surgical History Aortic valve replaced avr and aortic homograft closure H/O aortic valve replacement H/O hernia repair S/P VSD repair Social History Smoking Status: Former smoker quit date: 03/02/12 pack-years: 40 Tobacco: How many years used: 35 second hand exposure: No alcohol intake: never substance use type: does not use ROS ROS Narrative Constitutional: Denies fever, chills, fatigue, anorexia and change in weight Eyes: Denies blurry vision, change in eye color, change in vision, discharge from eye(s), double vision, erythema, eye pain, loss of vision or other HEENT: Denies abnormal hearing, dysphagia, ear pain, epistaxis, headache(s), hearing loss, nasal congestion, nasal discharge, post nasal drip, sinus pressure, sore throat or other Cardiovascular: Denies chest pain or palpitations. Denies dyspnea on exertion, orthopnea and paroxysmal nocturnal dyspnea Respiratory/Chest: Reports shortness of breath. Denies cough. Gastrointestinal: Denies abdominal pain, coffee ground emesis, constipation, diarrhea, dyspepsia, hematemesis, hematochezia, loose stools, melena, nausea, vomiting or other Genitourinary: Denies burning urination, difficulty urinating, dysuria, hematuria, nocturia, urinary frequency, urinary hesitancy, urinary incontinence, urinary urgency or other Musculoskeletal: Denies arthralgias, back pain, joint pain, joint stiffness, joint swelling, myalgias, neck pain or other Neurologic: Denies abnormal gait, abnormal speech, confusion, disequilibrium, dizziness, focal weakness, headache(s), numbness, paresthesias, seizure-like activity, seizures, syncope, tingling, tremor(s) or other Psychiatric: Denies anxiety, depression, homicidal ideation, suicidal ideation or other Endocrinology: Denies change in body appearance, cold intolerance, excessive sweating, heat intolerance, polydipsia, polyuria or other Hematologic/Lymphatic: Denies anemia, easy bleeding, easy bruising, lymphadenopathy or other Integumentary: Denies rashes Allergic/Immunologic: Denies rhinitis, hives, eczema, asthma or other Vital Signs Vital Signs Vital Signs: 12/29/20 21:38 12/29/20 21:41 12/29/20 21:42 Temperature 98.0 F 98.0 F 98.0 F Temperature Source Temporal Temporal Temporal Pulse Rate 111 H 108 H 106 H Respiratory Rate 23 H 17 18 Respiratory Effort Respiratory Depth Respiratory Pattern Blood Pressure 156/94 H 156/94 H 156/94 H Blood Pressure Mean 114 114 114 Pulse Ox 99 99 100 Oxygen Delivery Method Ambu-Bag Bi-pap Ambu-Bag Oxygen Flow Rate (L/min) 15 15 Fraction of Inspired Oxygen (FIO2) 50 12/29/20 21:46 12/29/20 21:50 Temperature Temperature Source Pulse Rate 86 Respiratory Rate 26 H Respiratory Effort Short of Breath Labored Respiratory Depth Shallow Respiratory Pattern Tachypnea Tachypnea Blood Pressure Blood Pressure Mean Pulse Ox 97 Oxygen Delivery Method Bi-pap Bi-pap Oxygen Flow Rate (L/min) Fraction of Inspired Oxygen (FIO2) 50 35 Weight Weight: 89.6 kg Body Mass Index (BMI) 26.8 Physical Exam Narrative Physical exam: General: Well-nourished, well-developed. Head: Normocephalic, atraumatic, no tenderness Eyes: PERRLA, EOMI ENT, no trauma, moist mucous membranes, no rhinorrhea Neck: Nontender, full range of motion, no spinal tenderness, deformities, step- off CVS: Regular rate and rhythm. Hyperdynamic heart sounds. No murmur, gallop or rub. Respiratory : Tachypnea; clear to auscultation bilaterally, chest wall nontender, no wheezing Abdomen: Soft, nontender, nondistended, normal bowel sounds, no masses : Deferred Back: Nontender, no CVA tenderness, no midline spinal tenderness, deformities, step-offs Extremities: Nontender full range of motion, no trauma Skin:Erythema of sacrococcygeal area and groin Neuro: Alert, oriented, cranial nerves II through XII grossly intact. Psychiatry: Normal mood. Normal affect. Not depressed. Not anxious. Results Lab / Micro Data Result Diagrams: 12/29/20 21:41 12/29/20 21:41 Labs: Laboratory Results - last 24 hr 12/29/20 21:41: WBC 17.2 H, RBC 4.26 L, Hgb 13.6, Hct 44.1, MCV 103.5 H, MCH 31.9, MCHC 30.8 L, RDW Std Deviation 51.8 H, RDW Coeff of Joseluis 13.6, Plt Count 261, MPV 11.7, Immature Gran % (Auto) 1.100 H, Neut % (Auto) 68.7, Lymph % (Auto ) 23.2, [place] % (Auto) 5.8, Eos % (Auto) 0.7, Baso % (Auto) 0.5, Absolute Neuts (auto) 11.9 H, Absolute Lymphs (auto) 4.00, Nucleated RBC % 0 12/29/20 21:41: Sodium 139, Potassium 4.4, Chloride 99, Carbon Dioxide 36.0 H, Anion Gap 4 L, BUN 33 H, Creatinine 1.44 H, Estim Creat Clear Calc 62.87, Est GFR (MDRD) Af Amer 65, Est GFR (MDRD) Non-Af 54 L, BUN/Creatinine Ratio 22.9 H, Glucose 177 H, Calcium 8.5, Troponin I High Sens 12 12/29/20 21:41: B-Natriuretic Peptide 85.6 12/29/20 21:41: PT 26.7 H, INR 2.6 Radiology Impression Chest X-Ray 12/29/20 21:45 IMPRESSION: 1. No acute cardiopulmonary process. Stable. Electronically Signed: Michael Brown MD (Brooks) at 22:07 EDT , Service support , Assessment & Plan Assessment/Plan (1) Unresponsive episode: (2) Chronic respiratory failure: QUALIFIERS: Respiratory failure complication: hypoxia Qualified Code(s): J96.11 - Chronic respiratory failure with hypoxia PLAN: Unresponsive episode Like secondary to hypoxia. Will observe at the hospital on telemetry. Acute on chronic respiratory failure with hypoxia/stage IV severe COPD macrocalcification/mixed obstructive and restrictive ventilatory defect. CXR independently interpreted showed no acute cardiopulmonary process. I agree with radiologist interpretation. Oxygen saturation of 87% on home oxygen requirement of 4LPM; tachypnea with highest respiratory rate of 33 Recently admitted to the hospital. Patient is no wheezing. He denies coughing. We will continue prednisone p.o. prescribed on recent discharge. Upon discharge recommend increasing oxygen rate with ambulation. Leukocytosis White count of 17.2 with bandemia on presentation. Likely secondary to steroid use Elevated creatinine Patient noted to have mild elevation in creatinine but not to the point of MEGAN. Hold Lasix. Trend BMP. History of aortic valve replacement and history of DVT On Coumadin. INR is therapeutic. Continue Coumadin. Trend PT/INR. Stage I pressure ulcer on coccyx/intertrigo of groin Nystatin cream, Calmoseptine cream ordered. Epilepsy Stable Continue home seizure medication Anxiety/depression Continue home antidepressant and antianxiety medication. Charges/Coding Visit Charges OBSV E&M: 65066 Initial observation care L2
--- NOTE | 2020-12-29 22:56 | CPS ---
dr. howell in room and gave order to take off bipap and place on 4 lpm nc per home use. patient placed on 4 lpm.
--- NOTE | 2020-12-29 23:14 | CPS ---
patient was 96% on 4 lpm at rest. patient walked on 4 lpm nc. patient stated that he felt dizzy and sob. patient was 87% on 4 lpm with ambulation. patient returned er 2 on 4 lpm.
[2020-12-30] VITALS (11 sets, daily range): BP systolic 102–119; BP diastolic 61–78; PULSE 67–93; RESP 16–20; TEMP 36.3–36.8; O2SAT 94–98
[2020-12-30] MEDS: MELATONIN 3 MG TABLET PO (00:37)
[2020-12-30] MEDS: Menthol/Lanolin/Calamine/Znox 113 GM Tube 1 APPLIC TOPICAL ×3 (00:38→21:33)
[2020-12-30] MEDS: Nystatin Powder 15gm Bottle 1 APPLIC TOPICAL ×3 (00:38→21:34)
[2020-12-30] MEDS: Metoprolol Tartrate 25 MG Tablet 37.5 MG PO ×2 (04:17→21:33)
[2020-12-30] MEDS: Phenytoin Na 100 MG Capsule PO ×3 (04:22→16:25)
[2020-12-30 06:33] LABS: Absolute Lymphocyte Count 0.59 X10^3/uL (0.83-4.51); Absolute Neutrophil Count 8.6 X10^3/uL (2.0-7.7); Basophil# 0.02 X10^3/uL; Basophil% 0.2 % (0-1); Hematocrit 37.8 % (40-54); Hemoglobin 11.8 g/dL (13.0-16.5); Lymphocyte # 0.59 X10^3/ul (0.83-4.51); Mean Corp Hgb Conc 31.2 g/dL (32-36); Mean Corpuscular Volume 102.4 fL (80-94); Monocyte# 0.49 X10^3/uL; NRBC Flagged by Analyzer 0 % (0-5); Neutrophil # 8.62 X10^3/uL (2.7-7.7); Neutrophil % 88.2 % (47-70); POSITIVE DIFFERENTIAL YES; Platelet Count 129 K/mm3 (150-450); RBC Distribution Width CV 13.4 % (11.6-14.6); RBC Distribution Width SD 51.2 fl (35.1-43.9); Red Blood Count 3.69 M/mm3 (4.6-6.2); White Blood Count 9.8 K/mm3 (4.4-11.0)
[2020-12-30 06:35] LABS: Differential Indicated SCAN CRITERIA MET
[2020-12-30 06:57] LABS: Anion Gap 3 (5-15); BUN 33 mg/dL (7-18); BUN/Creat Ratio 31.1 RATIO (10-20); Calcium,Total 8.2 mg/dL (8.5-10.1); Chloride 100 mmol/L (98-107); Creatinine, Serum 1.06 mg/dL (0.70-1.30); EST Glomerular Filtration Rate 77 mL/min (>60); Est Glom Filt Rate - Afr Amer 93 mL/min (>60); Estimated Creatinine Clearance 77.81 ml/min; Glucose 113 mg/dL (74-106); Potassium 4.4 mmol/L (3.5-5.1); Sodium Level 140 mmol/L (136-145)
[2020-12-30 06:59] LABS: International Normalized Ratio 2.8; Prothrombin Time (Protime)PT. 28.8 SECONDS (11.7-14.9)
[2020-12-30] MEDS: Ipratropium/Albuterol Sulfate 3 ML AMPUL.NEB INHALATION ×4 (07:10→20:50)
[2020-12-30 07:14] LABS: Stomatocyte 1+
[2020-12-30] MEDS: Aspirin E.C. 81 MG Tablet PO (08:02)
[2020-12-30] MEDS: Multivitamins,Therapeutic Tablet 1 TABLET PO (08:02)
[2020-12-30] MEDS: predniSONE 20 MG Tablet 40 MG PO (08:02)
[2020-12-30] MEDS: Enoxaparin 40 MG/0.4 ML Syringe SC (10:39)
[2020-12-30] MEDS: Pantoprazole Sodium 40 MG Tablet PO (10:40)
[2020-12-30] MEDS: buPROPion (XL) 150 MG TABLET.XL PO (10:40)
[2020-12-30] MEDS: Ascorbic Acid 500 MG Tablet PO (10:40)
[2020-12-30] MEDS: Vitamin B Comp W-C Capsule 1 CAP PO (10:40)
--- NOTE | 2020-12-30 11:20 | PN.HOSP_ITS ---
Subjective Subjective Doing well, no issues overnight. Currently responsive and back down to his home oxygen levels. Unsure as to what the etiology of the event yesterday was however am not clear as to why EMS would be bagging a patient who is awake as documented in previous document Objective Data Objective Data Vital Signs: Vital Signs Temp Pulse Resp BP Pulse Ox 97.3 F L 73 20 H 105/66 95 12/30/20 07:58 12/30/20 07:58 12/30/20 07:58 12/30/20 07:58 12/30/20 07:58 Oxygen Flow Rate (L/min) 4 Oxygen Delivery Method Nasal Cannula Weight: 194 lb 3.636 oz Body Mass Index (BMI) 28.6 Lab / Micro Data Result Diagrams: 12/30/20 06:08 12/30/20 06:08 Labs: Laboratory Results - last 24 hr 12/29/20 21:41: WBC 17.2 H, RBC 4.26 L, Hgb 13.6, Hct 44.1, MCV 103.5 H, MCH 31.9, MCHC 30.8 L, RDW Std Deviation 51.8 H, RDW Coeff of Joseluis 13.6, Plt Count 261, MPV 11.7, Immature Gran % (Auto) 1.100 H, Neut % (Auto) 68.7, Lymph % (Auto) 23.2, [place] % (Auto) 5.8, Eos % (Auto) 0.7, Baso % (Auto) 0.5, Absolute Neuts (auto) 11.9 H, Absolute Lymphs (auto) 4.00, Nucleated RBC % 0 12/29/20 21:41: Sodium 139, Potassium 4.4, Chloride 99, Carbon Dioxide 36.0 H, Anion Gap 4 L, BUN 33 H, Creatinine 1.44 H, Estim Creat Clear Calc 62.87, Est G FR (MDRD) Af Amer 65, Est GFR (MDRD) Non-Af 54 L, BUN/Creatinine Ratio 22.9 H, Glucose 177 H, Calcium 8.5, Troponin I High Sens 12 12/29/20 21:41: B-Natriuretic Peptide 85.6 12/29/20 21:41: PT 26.7 H, INR 2.6 12/30/20 06:08: WBC 9.8, RBC 3.69 L, Hgb 11.8 L, Hct 37.8 L, MCV 102.4 H, MCH 32.0, MCHC 31.2 L, RDW Std Deviation 51.2 H, RDW Coeff of Joseluis 13.4, Plt Count 129 L, MPV 12.0, Immature Gran % (Auto) 0.600, Neut % (Auto) 88.2 H, Lymph % ( Auto) 6.0 L, [place] % (Auto) 5.0, Eos % (Auto) 0.0, Baso % (Auto) 0.2, Absolute Neuts (auto) 8.6 H, Absolute Lymphs (auto) 0.59 L, Nucleated RBC % 0, Stomatocytes 1+ 12/30/20 06:08: PT 28.8 H, INR 2.8 12/30/20 06:08: Sodium 140, Potassium 4.4, Chloride 100, Carbon Dioxide 37.0 H, Anion Gap 3 L, BUN 33 H, Creatinine 1.06, Estim Creat Clear Calc 77.81, Est GFR (MDRD) Af Amer 93, Est GFR (MDRD) Non-Af 77, BUN/Creatinine Ratio 31.1 H, Glucose 113 H, Calcium 8.2 L Radiography Diagnostic Testing: Radiology Impression Chest X-Ray 12/29/20 21:45 IMPRESSION: 1. No acute cardiopulmonary process. Stable. Electronically Signed: Michael Brown MD (Brooks) at 22:07 EDT , Service support , Physical Exam Const alert, oriented x3 and no apparent distress General Appearance: cooperative HEENT normocephalic and moist oral mucous membranes Eyes PERRL, EOMs intact bilaterally and conjunctivae normal Neck supple and no JVD Resp normal respiratory effort, no retractions, no use of accessory muscles and clear to auscultation bilaterally Auscultation: Negative for crackles, rales, rhonchi or wheezes Cardio regular rate, regular rhythm, S1 normal heart sound, S2 normal heart sound and no murmurs GI soft to palpation, non-tender and non-distended; Negative for hepatosplenomegaly Extremity no clubbing, cyanosis or edema Skin no rashes or lesions noted Neuro no focal motor deficits and no sensory deficits noted Psych affect normal Appearance: appropriate Assessment & Plan Assessment/Plan (1) Unresponsive episode: (2) Chronic respiratory failure: QUALIFIERS: Respiratory failure complication: hypoxia Qualified Code(s): J96.11 - Chronic respiratory failure with hypoxia PLAN: 1. Acute on chronic hypoxic respiratory failure with stage IV severe COPD exacerbation -Continue with duo nebs as well as steroids -Unsure as to the etiology of unresponsive episode, and unsure why EMS would be bagging and alert patient. 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 HTN/HLD/history of aortic valve replacement/history of DVT -Continue with Coumadin, monitor INR ?Blood pressure stable -Continue with Lasix -Continue with aspirin 3. Epilepsy -Stable -continue with his home seizure medications 4. Anxiety/depression -Stable -Continue Lexapro and Wellbutrin, would recommend that his Wellbutrin be monitored as an outpatient as it does lower his seizure threshold -It could be that his unresponsive episode was a seizure however there is no seizure-like activity reported by the ED physician, EMS, or the admitting hospitalist either witnessed or reported from the assisted living. DVT: Coumadin Charges/Coding Visit Charges OBSV E&M: 74401 Subsequent observation care L2
[2020-12-30] MEDS: Ferrous Sulfate 325 MG Tablet PO ×2 (12:56→16:25)
[2020-12-30] MEDS: Escitalopram Oxalate 10 MG Tablet PO (21:33)
[2020-12-31] VITALS (9 sets, daily range): BP systolic 125–130; BP diastolic 73–77; PULSE 71–88; RESP 16–20; TEMP 36.6–36.9; O2SAT 88–96
[2020-12-31 06:14] LABS: Basophil# 0.04 X10^3/uL; Basophil% 0.5 % (0-1); Eosinophil# 0.33 X10^3/uL; Eosinophils% 4.4 % (0-5); Hematocrit 37.8 % (40-54); Hemoglobin 11.5 g/dL (13.0-16.5); Lymphocyte % 17.2 % (19-41); Mean Corp Hgb Conc 30.4 g/dL (32-36); Mean Corpuscular Hgb 31.3 pg (27.0-32.0); Mean Platelet Vol. 11.7 fl (6.2-12.0); Monocyte# 0.85 X10^3/uL; Monocyte% 11.2 % (0-10); NRBC Flagged by Analyzer 0 % (0-5); Neutrophil % 65.9 % (47-70); Platelet Count 112 K/mm3 (150-450); RBC Distribution Width CV 13.5 % (11.6-14.6); RBC Distribution Width SD 51.6 fl (35.1-43.9); Red Blood Count 3.67 M/mm3 (4.6-6.2); White Blood Count 7.6 K/mm3 (4.4-11.0)
[2020-12-31 06:24] LABS: International Normalized Ratio 3.1; Prothrombin Time (Protime)PT. 30.9 SECONDS (11.7-14.9)
[2020-12-31 06:38] LABS: Anion Gap 1 (5-15); BUN 32 mg/dL (7-18); BUN/Creat Ratio 32.7 RATIO (10-20); Calcium,Total 8.2 mg/dL (8.5-10.1); Chloride 103 mmol/L (98-107); Creatinine, Serum 0.98 mg/dL (0.70-1.30); EST Glomerular Filtration Rate 84 mL/min (>60); Est Glom Filt Rate - Afr Amer 102 mL/min (>60); Estimated Creatinine Clearance 84.17 ml/min; Glucose 88 mg/dL (74-106); Potassium 3.9 mmol/L (3.5-5.1); Sodium Level 140 mmol/L (136-145)
[2020-12-31] MEDS: Ipratropium/Albuterol Sulfate 3 ML AMPUL.NEB INHALATION ×2 (07:28→11:08)
--- NOTE | 2020-12-31 08:14 | PCS.PANDOC ---
PANDEMIC DOCUMENTATION INITIATED: Date: 10/15/2020 Time: 190
[2020-12-31] MEDS: Ascorbic Acid 500 MG Tablet PO (08:16)
[2020-12-31] MEDS: Metoprolol Tartrate 25 MG Tablet 37.5 MG PO (08:16)
[2020-12-31] MEDS: Pantoprazole Sodium 40 MG Tablet PO (08:16)
[2020-12-31] MEDS: buPROPion (XL) 150 MG TABLET.XL PO (08:16)
[2020-12-31] MEDS: Multivitamins,Therapeutic Tablet 1 TABLET PO (08:16)
[2020-12-31] MEDS: Aspirin E.C. 81 MG Tablet PO (08:18)
[2020-12-31] MEDS: Vitamin B Comp W-C Capsule 1 CAP PO (08:18)
[2020-12-31] MEDS: predniSONE 20 MG Tablet 40 MG PO (08:19)
[2020-12-31] MEDS: Phenytoin Na 100 MG Capsule PO ×2 (08:19→11:39)
[2020-12-31] MEDS: Ferrous Sulfate 325 MG Tablet PO (08:19)
[2020-12-31] MEDS: Menthol/Lanolin/Calamine/Znox 113 GM Tube 1 APPLIC TOPICAL (08:19)
[2020-12-31] MEDS: Nystatin Powder 15gm Bottle 1 APPLIC TOPICAL (08:20)
--- NOTE | 2020-12-31 10:56 | CASEMGMT ---
Pt screened with [facility] Palliative Care Screening Tool, pt met criteria, no order received.
--- NOTE | 2020-12-31 11:15 | CASEMGMT ---
Addendum entered by Smita Everett 12/31/20 13:43: Spoke with Kaia at [facility] to make aware of updated script that was faxed. Original Note: QUIN ROLLINS Readmission Note Previous Admission: 12/27/20-12/29/20 Diagnosis: COPD exac DC Disposition:Home with resumption of HHC Current Admission Current Diagnosis: COPD exac Pt presented to ER from home with shortness of breath. Pt was being bagged by medic upon arrival. QUIN ROLLINS in to pt room. Pt reports that he had picked up his prednisone but had not started taking it yet. He has taken all of his other meds correctly per his report. He states he has not had a chance to make any follow up MD appts but will do so. Pt verifies that he has O2 at home at 4L through [facility]. He is aware that he will require 5L with exertion. Pt actually was tested on 3L and was above 89%. Updated script faxed to [facility]. Pt will also have his portable tank brought in to go home on. Pt has HHC through [facility] . He has [facility] for aide services. Pt also gets [facility] and MOW. Pt denies any further needs at home. TC to [facility], spoke with Sebastián, faxed resumption info at this time. DC PLAN: Home with [facility] of HHC and O2.
--- NOTE | 2020-12-31 11:26 | PCM.DC.SUM ---
Providers Date of Admission: 12/30/20 Primary Care Physician: Dr. Jason Leal DO Reason For Visit: COPD EXACERBATION Diagnosis Discharge Diagnosis (1) Unresponsive episode: Status: Acute Code(s): R41.89 - Other symptoms and signs involving cognitive functions and awareness (2) Chronic respiratory failure: Status: Chronic Code(s): J96.10 - Chronic respiratory failure, unspecified whether with hypoxia or hypercapnia Qualifiers: Respiratory failure complication: hypoxia Qualified Code(s): J96.11 - Chronic respiratory failure with hypoxia Medications at Discharge Home Medications Oxygen, Home [Home Oxygen] 2 - 4 lpm NASAL DAILY 04/05/16 albuterol sulfate 2.5 mg INHALATION Q4H PRN PRN 04/05/16 aspirin 81 mg tablet,delayed release 81 mg PO DAILY 03/17/17 multivitamin 1 tab PO QDAY 03/17/17 acetaminophen 325 mg tablet 325 mg PO Q6H PRN tab 01/04/20 vitamin B complex 1 tab PO DAILY 01/04/20 aluminum-mag hydroxide-simethicone 200 mg-200 mg-20 mg/5 mL oral susp 30 ml PO Q4H PRN ml 04/18/20 ascorbate calcium (vitamin C) 500 mg tablet 500 mg PO DAILY 04/18/20 bupropion HCl 150 mg tablet,12 hr sustained-release 150 mg PO DAILY 04/18/20 escitalopram oxalate 5 mg tablet 10 mg PO QHS tab 04/18/20 ferrous sulfate 325 mg (65 mg iron) tablet 325 mg PO BID 04/18/20 melatonin 3 mg capsule 5 mg PO HS PRN cap 04/18/20 pantoprazole 20 mg tablet,delayed release 40 mg PO DAILY 04/18/20 warfarin 5 mg tablet 5 mg PO SUMOTUWEFRSA 04/18/20 furosemide 20 mg PO DAILY 10/26/20 Trelegy Ellipta 1 inh INHALATION DAILY 12/27/20 cholecalciferol (vitamin D3) 50,000 unit PO TUFR 12/27/20 metoprolol tartrate 37.5 mg PO BID 12/27/20 phenytoin sodium extended [Dilantin Extended] 100 mg PO TID 12/27/20 potassium chloride 20 meq PO BID 12/27/20 warfarin 6 mg PO TH 12/27/20 prednisone 40 mg PO DAILY #14 tab 12/29/20 prednisone 40 mg PO DAILY #10 tab 12/31/20 Hospital Course Operations None Procedures None Summary of Care Provided Minutes Spent on Discharge: 40 Hospital Course: Patient is a 55-year-old male with a past medical history of MRDD, chronic hypoxic respiratory failure due to mixed obstructive and restrictive ventilatory defect and COPD, on 4 L of oxygen at home was admitted via the ED on 12/29/2020 after reportedly being found unresponsive. Patient had just been discharged from the hospital on the same day and arriving home, he became unresponsive so EMS was called. Patient said that was at home his oxygen level was dropping. He was initially placed on BiPAP initially 50% which was weaned down to 35%. Per the admitting note, even on BiPAP with appropriate oxygen saturation, patient was complaining about his oxygen saturation was dropping. He was weaned down to 4 L of oxygen which was his baseline in the ER though with ambulation, his oxygen saturation dropped to 87% so he was admitted to be managed for acute on chronic hypoxic respiratory failure due to severe COPD. Patient remained stable during admission and remained on his 4 L of oxygen. He was continued on his p.o. prednisone. Hospital course was uncomplicated and patient remained stable. He was discharged home on 12/31/2020. He is to follow-up with his primary care doctor and business project analyst and counseled to use his oxygen to maintain a saturation of 90 to 92%. Patient seen and examined prior to discharge. He had no complaints and wanted to be discharged home. Review of systems otherwise negative. Labs and vitals reviewed. Home medication reviewed and reconciled. Physical Exam Const alert, oriented x3 and no apparent distress General Appearance: cooperative and comfortable Orientation / Consciousness: awake Exam Limitations: no limitations HEENT normocephalic, head/scalp atraumatic, hearing grossly normal bilaterally and moist oral mucous membranes Eyes PERRL, EOMs intact bilaterally and conjunctivae normal Neck no lymphadenopathy Resp Resp Narrative: diminished breath sounds bibasally, no wheezes or crackles. On 4L of oxygen, which is his baseline. GI normal to inspection, nondistended, normoactive bowel sounds, soft to palpation, non-tender and non-distended Extremity normal to inspection Skin no rashes or lesions noted Neuro oriented x3, CN's II-XII intact bilaterally and moves all extremities Sensorium / Orientation: awake and alert Psych affect normal Weight / BMI Weight Weight: 194 lb 3.636 oz Body Mass Index (BMI) 28.6 ABG / Lab / Microbiology Data Result Diagrams: 12/31/20 05:54 12/31/20 05:54 Laboratory: Laboratory Results - last 24 hr 12/31/20 05:54: PT 30.9 H, INR 3.1 12/31/20 05:54: WBC 7.6, RBC 3.67 L, Hgb 11.5 L, Hct 37.8 L, MCV 103.0 H, MCH 31.3, MCHC 30.4 L, RDW Std Deviation 51.6 H, RDW Coeff of Joseluis 13.5, Plt Count 112 L, MPV 11.7, Immature Gran % (Auto) 0.800, Neut % (Auto) 65.9, Lymph % (Auto) 17.2 L, [place] % (Auto) 11.2 H, Eos % (Auto) 4.4, Baso % (Auto) 0.5, Absolute Neuts (auto) 5.0, Absolute Lymphs (auto) 1.30, Nucleated RBC % 0 12/31/20 05:54: Sodium 140, Potassium 3.9, Chloride 103, Carbon Dioxide 36.0 H, Anion Gap 1 L, BUN 32 H, Creatinine 0.98, Estim Creat Clear Calc 84.17, Est GFR (MDRD) Af Amer 102, Est GFR (MDRD) Non-Af 84, BUN/Creatinine Ratio 32.7 H, Glucose 88, Calcium 8.2 L D/C Instructions Discharge Diet: Low fat / Low cholesterol Discharge Activity: Return to Normal Activity Meaningful Use Info Meaningful Use Diagnoses (Choose all that apply): None applicable Discharge Plan Admission Admit Date/Time: 12/30/20 16:46 Attending Provider: Ann Suarez Primary Care Provider: Jason Leal Instructions Patient Instructions: Discharge Instructions: COPD, COPD Meds Discharge Orders/Prescriptions Prescriptions: New prednisone 20 mg tablet 40 mg PO DAILY Qty: 10 RF: 0 Continued aspirin [Adult Aspirin Regimen] 81 mg tablet,delayed release (DR/EC) 81 mg PO DAILY RF: 0 multivitamin [Multiple Vitamins] tablet 1 tab PO QDAY RF: 0 acetaminophen [Tylenol] 325 mg tablet 325 mg PO Q6H PRN (Reason: Pain) RF: 0 vitamin B complex [B Complex-Vitamin B12] Tablet 1 tab PO DAILY RF: 0 escitalopram oxalate 5 mg tablet 10 mg PO QHS RF: 0 warfarin 5 mg tablet 5 mg PO SUMOTUWEFRSA RF: 0 ferrous sulfate [Feosol] 325 mg (65 mg iron) tablet 325 mg PO BID RF: 0 alum-mag hydroxide-simeth 200-200-20 mg/5 mL suspension 30 ml PO Q4H PRN (Reason: Heartburn) RF: 0 pantoprazole 20 mg tablet,delayed release (DR/EC) 40 mg PO DAILY RF: 0 ascorbate calcium (vitamin C) 500 mg tablet 500 mg PO DAILY RF: 0 bupropion HCl [Wellbutrin SR] 150 mg tablet sustained-release 12 hr 150 mg PO DAILY RF: 0 melatonin 3 mg capsule 5 mg PO HS PRN (Reason: Insomnia) RF: 0 albuterol sulfate 2.5 MG/3 ML solution for nebulization 2.5 mg INHALATION Q4H PRN PRN (Reason: Sob &/Or Wheezing) RF: 0 Oxygen, Home [Home Oxygen] 2 - 4 lpm NASAL DAILY RF: 0 furosemide 20 mg tablet 20 mg PO DAILY RF: 0 potassium chloride 20 mEq tablet,ER particles/crystals 20 meq PO BID RF: 0 cholecalciferol (vitamin D3) 1,250 mcg (50,000 unit) capsule 50,000 unit PO TUFR RF: 0 phenytoin sodium extended [Dilantin Extended] 100 mg capsule 100 mg PO TID RF: 0 metoprolol tartrate 25 mg tablet 37.5 mg PO BID RF: 0 Trelegy Ellipta 200-62.5-25 mcg blister with device 1 inh inhalation DAILY RF: 0 warfarin 6 mg tablet 6 mg PO TH RF: 0 prednisone 20 mg tablet 40 mg PO DAILY Qty: 14 RF: 0 Referrals / Follow Up: Jason Leal DO [Primary Care Provider] - Within 2 Weeks Disposition Disposition (needs filled in before D/C Order can be placed): Home Health Service Charges/Coding Visit Charges Inpatient E&M: 68403 Disch Hosp
--- NOTE | 2020-12-31 11:35 | CASEMGMT ---
Addendum entered by Zainab Green 12/31/20 11:55: ANAID placed another call to pt's CM Avis Rosenthal ([phone]) and left message that pt is being discharged home today. ANAID faxed discharge paperwork to Avis ([phone]). Original Note: Social Work Note SW reviewed chart, pt is active with [facility] and CM is Avis Adams. ANAID placed a call to Avis and left message updating her on pt's admission to [facility]. Zainab Green FURRIER APPRENTICE, RN INFORMATICS
--- NOTE | 2021-01-01 15:28 | CASEMGMT ---
QUIN ROLLINS Discharge Follow Up Phone Call: BHAVIK: Nirmala Strata: 3 Call Date: 01/01/21 Discharge Date: 12/31/20 Time of Call:1526 Duration:3 min Admitting Dx: COPD exac QUIN ROLLINS completed follow up phone call after recent hospitalization. Spoke with JENIFER Bradford. She states she has been to pt home and he is doing well today. States he had a better night lastnight. She states she has also received several texts from him today. She is not aware if the [facility] started but she will be in touch with them. 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 Pt has a follow up appt on Jan 14 at 1030. She denies any questions regarding pt dc instructions or medications.
== END 2020-12-31 14:38 | disposition home health service (06) | DRG 190 ==
LOC: ED 22:47 → MS3 22:58
PROVIDERS: Family Medicine; Admitting Provider Hospitalist; Emergency Provider Emergency Medicine; PCP Family Medicine; Visit Provider Student in an Organized Health Care Education/Training Program
DX: J44.1 Chronic obstructive pulmonary disease with (acute) exacerbation (principal); J96.21 Acute and chronic respiratory failure with hypoxia; I45.2 Bifascicular block; R79.89 Other specified abnormal findings of blood chemistry; J98.4 Other disorders of lung; F79 Unspecified intellectual disabilities; L89.151 Pressure ulcer of sacral region, stage 1; L30.4 Erythema intertrigo; E07.9 Disorder of thyroid, unspecified; F32.A Depression, unspecified; F41.9 Anxiety disorder, unspecified; I10 Essential (primary) hypertension; E78.5 Hyperlipidemia, unspecified; G47.10 Hypersomnia, unspecified; K21.9 Gastro-esophageal reflux disease without esophagitis; M19.90 Unspecified osteoarthritis, unspecified site; E78.00 Pure hypercholesterolemia, unspecified; G40.909 Epilepsy, unspecified, not intractable, without status epilepticus; Z99.81 Dependence on supplemental oxygen; Z87.19 Personal history of other diseases of the digestive system; Z86.718 Personal history of other venous thrombosis and embolism; Z95.2 Presence of prosthetic heart valve; Z79.01 Long term (current) use of anticoagulants; Z79.82 Long term (current) use of aspirin; Z79.899 Other long term (current) drug therapy; Z87.891 Personal history of nicotine dependence
CPT/HCPCS: 36415; 71045; 80048; 83880; 84484; 85025; 85610; 87040; 93005; 94002; 94640; 99285; A4216

== ENCOUNTER 2021-03-15 18:34 | Inpatient (IN) | payer MEDICARE, MEDICAID, SELFPAY ==
[2021-03-15] VITALS (14 sets, daily range): BP systolic 117–143; BP diastolic 74–95; PULSE 103–139; RESP 12–26; TEMP 36.6–38.6; O2SAT 84–99; BMI 31.6; BMI 27.1
--- NOTE | 2021-03-15 18:40 | EKG12_ITS ---
Test Reason : DYSRHYTHMIA Blood Pressure : / mmHG Vent. Rate : 118 BPM Atrial Rate : 118 BPM P-R Int : 150 ms QRS Dur : 142 ms QT Int : 356 ms P-R-T Axes : 075 -73 076 degrees QTc Int : 498 ms Sinus tachycardia Right bundle branch block Left anterior fascicular block Bifascicular block Abnormal ECG Confirmed by GRAYSON HEARD, JALIL ([id number]), editor in chief newspaper JAIDEN KANG ([id number]) on 03/18/2021 11:12:50 AM Referred By: MELVA Confirmed By:JALIL GALICIA MD
[2021-03-15] MEDS: Ipratropium/Albuterol Sulfate 3 ML AMPUL.NEB INHALATION (18:55)
[2021-03-15 18:59] LABS: Absolute Lymphocyte Count 0.84 X10^3/uL (0.83-4.51); Absolute Neutrophil Count 5.9 X10^3/uL (2.0-7.7); Basophil# 0.02 X10^3/uL; Basophil% 0.3 % (0-1); Eosinophil# 0.03 X10^3/uL; Eosinophils% 0.4 % (0-5); Hematocrit 43.2 % (40-54); Lymphocyte # 0.84 X10^3/ul (0.83-4.51); Mean Corp Hgb Conc 30.1 g/dL (32-36); Mean Corpuscular Hgb 31.1 pg (27.0-32.0); Mean Corpuscular Volume 103.3 fL (80-94); Mean Platelet Vol. 11.6 fl (6.2-12.0); Monocyte# 0.77 X10^3/uL; Monocyte% 10.1 % (0-10); NRBC Flagged by Analyzer 0 % (0-5); Neutrophil # 5.88 X10^3/uL (2.7-7.7); Neutrophil % 77.3 % (47-70); Platelet Count 107 K/mm3 (150-450); RBC Distribution Width CV 13.5 % (11.6-14.6); RBC Distribution Width SD 51.2 fl (35.1-43.9); Red Blood Count 4.18 M/mm3 (4.6-6.2); White Blood Count 7.6 K/mm3 (4.4-11.0)
[2021-03-15 19:06] LABS: International Normalized Ratio 2.1; Prothrombin Time (Protime)PT. 22.4 SECONDS (11.7-14.9)
--- NOTE | 2021-03-15 19:15 | RAD_ITS ---
STUDY: X-RAY CHEST REASON FOR EXAM: Male, 55 years old. Shortness of breath. Fever. History of COPD. TECHNIQUE: Single AP portable view of the chest. COMPARISON: 12/29/2020. FINDINGS: The lungs are hyperexpanded with chronic interstitial coarsening. There is no focal mass or infiltrate. There is no demonstrated pleural abnormality. Sternal cerclage wires are present from a prior sternotomy. The heart is normal in size. Normal mediastinum and joselito. Normal visualized pulmonary arteries. There is atherosclerotic calcification of the aortic arch with tortuosity. No osseous changes. There is no demonstrated abnormality of the visualized soft tissue structures of the upper abdomen. RAD/Chest 1 View (Portable) IMPRESSION: COPD without acute cardiopulmonary disease or major interval change. Electronically Signed: Isai Law DO at 19:35 EST Tel [phone], Service support ,
[2021-03-15 19:16] LABS: Anion Gap 2 (5-15); BUN 23 mg/dL (7-18); BUN/Creat Ratio 20.2 RATIO (10-20); Calcium,Total 8.5 mg/dL (8.5-10.1); Chloride 102 mmol/L (98-107); Creatinine, Serum 1.14 mg/dL (0.70-1.30); EST Glomerular Filtration Rate 71 mL/min (>60); Est Glom Filt Rate - Afr Amer 85 mL/min (>60); Estimated Creatinine Clearance 72.35 ml/min; Glucose 136 mg/dL (74-106); Potassium 4.2 mmol/L (3.5-5.1); Sodium Level 141 mmol/L (136-145); Troponin-I HS 19 pg/mL (3.0-78.0)
[2021-03-15 19:19] LABS: Lactic Acid 1.3 mmol/L (0.4-1.9)
[2021-03-15 19:26] LABS: Allen Test Positive; Base Excess 10 mmol/L (-2 to +2); Bicarbonate 35.6 mmol/L (22-26); Blood Gas Specimen Type ART; FI02 50; O2 Delivery Device BiPAP; PO2 67 mmHG (75-100); SITE R Radial; SO2 92 % (95-99); Total Carbon Dioxide 38 mmol/L; pCO2 61.8 mmHg (35-45); pH 7.37 (7.35-7.45)
[2021-03-15 19:40] LABS: Phenytoin (Dilantin) Level 6.2 mL (10.0-20.0)
--- NOTE | 2021-03-15 19:50 | ED.VIS.DYS ---
HPI History of Present Illness Chief Complaint: Shortness of Breath Informant: patient Narrative Narrative: Patient is a 55-year-old male with complex medical history including chronic hypoxic respiratory failure on 5 L of oxygen at baseline presenting with fever and increased redness of breath over the past few days. They called EMS as he was not getting better today. He states he is having hard time breathing. Denies any chest pain. Does not know of any sick contacts. Does have a mild cough. No other complaints at this time. [facility] Medical History (Updated 03/16/21 @ 00:[address] Larissa Soto, DO) Acute on chronic respiratory failure with hypoxia Alkaline phosphatase elevation Aortic valve disease Bilateral leg edema Cholelithiasis Chronic hypoxemic respiratory failure Chronic respiratory failure COPD (chronic obstructive pulmonary disease) DVT (deep venous thrombosis) Eczema of hand GERD (gastroesophageal reflux disease) History of Coumadin therapy HTN (hypertension) Hyperlipidemia Hypersomnia Hypersomnia Hypoxemic respiratory failure, chronic Iatrogenic pneumothorax Learning disability Mixed obstructive and restrictive ventilatory defect Mood disorder Obesity Seizure disorder Shortness of breath Stage 4 very severe COPD by GOLD classification varicose veins Ventricular septal defect Home Medications Oxygen, Home [Home Oxygen] 2 - 4 lpm NASAL DAILY 04/05/16 [History Last Taken 12/27/20] albuterol sulfate 2.5 mg INHALATION Q4H PRN PRN 04/05/16 [History Last Taken Unknown] aspirin 81 mg tablet,delayed release 81 mg PO DAILY 03/17/17 [History Last Taken Unknown] multivitamin 1 tab PO QDAY 03/17/17 [History Last Taken Unknown] acetaminophen 325 mg tablet 325 mg PO Q6H PRN tab 01/04/20 [History Last Taken Unknown] vitamin B complex 1 tab PO DAILY 01/04/20 [History Last Taken Unknown] aluminum-mag hydroxide-simethicone 200 mg-200 mg-20 mg/5 mL oral susp 30 ml PO Q4H PRN ml 04/18/20 [History Last Taken Unknown] ascorbate calcium (vitamin C) 500 mg tablet 500 mg PO DAILY 04/18/20 [History Last Taken Unknown] bupropion HCl 150 mg tablet,12 hr sustained-release 150 mg PO DAILY 04/18/20 [History Last Taken Unknown] escitalopram oxalate 5 mg tablet 10 mg PO QHS tab 04/18/20 [History Last Taken Unknown] ferrous sulfate 325 mg (65 mg iron) tablet 325 mg PO BID 04/18/20 [History Last Taken Unknown] melatonin 3 mg capsule 5 mg PO HS PRN cap 04/18/20 [History Last Taken Unknown] pantoprazole 20 mg tablet,delayed release 40 mg PO DAILY 04/18/20 [History Last Taken Unknown] warfarin 5 mg tablet 5 mg PO SUMOTUWEFRSA 04/18/20 [History Last Taken Unknown] furosemide 20 mg PO DAILY 10/26/20 [History Last Taken Unknown] Trelegy Ellipta 1 inh INHALATION DAILY 12/27/20 [History Last Taken Unknown] cholecalciferol (vitamin D3) 50,000 unit PO TUFR 12/27/20 [History Last Taken Unknown] metoprolol tartrate 37.5 mg PO BID 12/27/20 [History Last Taken Unknown] phenytoin sodium extended [Dilantin Extended] 100 mg PO TID 12/27/20 [History Last Taken Unknown] potassium chloride 20 meq PO BID 12/27/20 [History Last Taken Unknown] warfarin 6 mg PO TH 12/27/20 [History Last Taken Unknown] prednisone 40 mg PO DAILY #14 tab 12/29/20 [Rx Last Taken Unknown] prednisone 40 mg PO DAILY #10 tab 12/31/20 [Rx Last Taken Unknown] albuterol sulfate 90 mcg/actuation aerosol inhaler 2 puff INHALATION Q4H PRN PRN #6.7 g 01/29/21 [Rx Last Taken Unknown] Allergy/AdvReac Type Severity Reaction Status Date / Time No Known Allergies Allergy Verified 03/15/21 18:35 Family History Father Lung cancer Osteoarthritis Mother Diabetes Thyroid disorder High cholesterol Breast cancer Grandmother Heart disease CVA (cerebral vascular accident) Surgical History Aortic valve replaced avr and aortic homograft closure H/O aortic valve replacement H/O hernia repair S/P VSD repair Social History Smoking Status: Former smoker quit date: 03/02/12 pack-years: 40 Tobacco: How many years used: 35 second hand exposure: No alcohol intake: never substance use type: does not use ROS ROS ED ROS Narrative Review of systems is limited secondary to respiratory distress Constitutional Constitutional ED: Reports chills and fever(s) Eyes Eyes: Denies blurry vision ENT ENT ED: Denies rhinorrhea Cardiovascular Cardiovascular: Denies chest pain or palpitations Respiratory/Chest Respiratory/Chest: Reports cough, dyspnea, dyspnea on exertion and sputum Gastrointestinal Gastrointestinal: Denies abdominal pain, nausea or vomiting Musculoskeletal Musculoskeletal: Denies arthralgias or myalgias Integumentary Denies rash Neurologic Neurologic: Denies paresthesias or weakness Psychiatric Psychiatric: Denies depression EXAM Physical Exam Const Vital Signs: 03/15/21 18:36 03/15/21 18:45 03/15/21 18:52 Temperature 101.3 F H 101.3 F H Temperature Source Oral Oral Pulse Rate 126 H 119 H 116 H Respiratory Rate 26 H 21 H 20 H Respiratory Effort Non-Labored Short of Breath Respiratory Depth Shallow Respiratory Pattern Normal Blood Pressure 140/93 H 133/87 H Blood Pressure Mean 108 102 Pulse Ox 84 96 99 Oxygen Delivery Method Nasal Cannula Bi-pap Bi-pap Oxygen Flow Rate (L/min) 5 6 Fraction of Inspired Oxygen (FIO2) 80 03/15/21 18:55 Temperature Temperature Source Pulse Rate 123 H Respiratory Rate 20 H Respiratory Effort Respiratory Depth Respiratory Pattern Normal Blood Pressure Blood Pressure Mean Pulse Ox Oxygen Delivery Method Oxygen Flow Rate (L/min) Fraction of Inspired Oxygen (FIO2) General Appearance ED: other Chronically ill-appearing and in acute respiratory distress HEENT Reports dry mucous membranes atraumatic Mouth ED: Yes dry mucous membranes Mouth: dry mucous membranes Eyes PERRL and EOMs intact bilaterally Neck supple and no JVD Chest Wall Chest Narrative: No chest wall crepitus Resp Resp Narrative: Increased respiratory effort. Patient is pursed lip breathing with accessory muscle usage. Diminished breath sounds at the bases and coarse breath sounds at the apex of the lungs. Cardio Cardio Narrative: Systolic murmur consistent with mechanical valve Rate: tachycardic GI non-tender and non-distended Palpation: soft Back/Spine normal to inspection Extremity normal to inspection General Extremety ED: Negative for edema General Extremity: Negative for edema Neuro oriented x3 Sensorium / Orientation: alert and oriented to person Motor Exam: general weakness Psych mental status grossly normal Mood & Affect: anxious Skin Lesions: no lesions Rashes: no rashes MDM MDM MDM Narrative Medical decision making narrative: Patient arrives with acute hypoxic respiratory distress. Patient is on 5 L of oxygen at baseline however on 8 L he is 84% and in respiratory distress. He is febrile. Patient is placed on BiPAP for increased work of breathing. He has significant improvement with this. Work-up is remarkable for positive COVID test. No other significant laboratory abnormalities. Patient is therapeutic with an INR of 2 presents hypoxia. Chest x-ray does not show any acute infiltrate. His phenytoin level is subtherapeutic. He does have an elevation of his liver enzymes but is mild. This could likely be viral. Patient remained to the ICU for acute respiratory failure. Lab Data Attestation: I reviewed the patient's lab results. Labs: Laboratory Results - last 24 hr 03/15/21 03/15/21 03/15/21 18:53 18:53 18:53 WBC 7.6 RBC 4.18 L Hgb 13.0 Hct 43.2 MCV 103.3 H MCH 31.1 MCHC 30.1 L RDW Std Deviation 51.2 H RDW Coeff of Joseluis 13.5 Plt Count 107 L MPV 11.6 Immature Gran % (Auto) 0.900 Neut % (Auto) 77.3 H Lymph % (Auto) 11.0 L [place] % (Auto) 10.1 H Eos % (Auto) 0.4 Baso % (Auto) 0.3 Absolute Neuts (auto) 5.9 Absolute Lymphs (auto) 0.84 Nucleated RBC % 0 PT INR D-Dimer Quant (PE/DVT) Sodium 141 Potassium 4.2 Chloride 102 Carbon Dioxide 37.0 H Anion Gap 2 L BUN 23 H Creatinine 1.14 Estim Creat Clear Calc 72.35 Est GFR (MDRD) Af Amer 85 Est GFR (MDRD) Non-Af 71 BUN/Creatinine Ratio 20.2 H Glucose 136 H Lactic Acid Calcium 8.5 Ferritin Total Bilirubin Direct Bilirubin AST ALT Alkaline Phosphatase Lactate Dehydrogenase Troponin I High Sens 19 C-React Prot Ext Range B-Natriuretic Peptide 51.0 Total Protein Albumin Globulin Phenytoin 03/15/21 03/15/21 03/15/21 18:53 18:53 18:53 WBC RBC Hgb Hct MCV MCH MCHC RDW Std Deviation RDW Coeff of Joseluis Plt Count MPV Immature Gran % (Auto) Neut % (Auto) Lymph % (Auto) [place] % (Auto) Eos % (Auto) Baso % (Auto) Absolute Neuts (auto) Absolute Lymphs (auto) Nucleated RBC % PT 22.4 H INR 2.1 D-Dimer Quant (PE/DVT) 0.56 H* Sodium Potassium Chloride Carbon Dioxide Anion Gap BUN Creatinine Estim Creat Clear Calc Est GFR (MDRD) Af Amer Est GFR (MDRD) Non-Af BUN/Creatinine Ratio Glucose Lactic Acid 1.3 Calcium Ferritin Total Bilirubin Direct Bilirubin AST ALT Alkaline Phosphatase Lactate Dehydrogenase Troponin I High Sens C-React Prot Ext Range B-Natriuretic Peptide Total Protein Albumin Globulin Phenytoin 03/15/21 03/15/21 18:54 19:05 WBC RBC Hgb Hct MCV MCH MCHC RDW Std Deviation RDW Coeff of Joseluis Plt Count MPV Immature Gran % (Auto) Neut % (Auto) Lymph % (Auto) [place] % (Auto) Eos % (Auto) Baso % (Auto) Absolute Neuts (auto) Absolute Lymphs (auto) Nucleated RBC % PT INR D-Dimer Quant (PE/DVT) Sodium Potassium Chloride Carbon Dioxide Anion Gap BUN Creatinine Estim Creat Clear Calc Est GFR (MDRD) Af Amer Est GFR (MDRD) Non-Af BUN/Creatinine Ratio Glucose Lactic Acid Calcium Ferritin 272 Total Bilirubin 0.30 Direct Bilirubin 0.17 AST 81 H ALT 117 H Alkaline Phosphatase 277 H Lactate Dehydrogenase 401 H Troponin I High Sens C-React Prot Ext Range 25.20 H B-Natriuretic Peptide Total Protein 7.0 Albumin 3.2 Globulin 3.8 Phenytoin 6.2 L ABG Data ABG results: ABG 03/15/21 19:17 Specimen Type ART Sample Site R Radial pH 7.37 Bicarbonate Actual 35.6 H Total CO2 38 Base Excess 10 H O2 Saturation 92 L O2 % 50 ABG pCO2 61.8 H ABG pO2 67 L Kurt Test Positive O2 Delivery Device BiPAP Clinical Comments 13/10 12 50% Radiography Chest X-Ray - ED: 1 View, Read by ED Physician, Read by Radiologist and No Acute Disease Diagnostic Testing: Clinical Impression(s) from Imaging Studies Chest X-Ray 03/15/21 19:15 IMPRESSION: COPD without acute cardiopulmonary disease or major interval change. Electronically Signed: Isai Law DO at 19:35 EST Tel [phone], Service support , Rhythm Strip Rhythm Strip: Sinus Tach Rate: 118 Ectopy: None EKG Initial EKG: Attestation: I personally reviewed and interpreted this EKG as follows: Interpretation: Sinus Tachycardia Comments: Sinus tachycardia rate of 118 Left axis deviation Bifascicular block with a right bundle branch block and left anterior fascicular block Nonspecific T wave changes Critical Care Time Critical Care Time: Yes Critical care time (excluding procedures): 30-74 minutes (34) and Including time spent: (Arranging admission, discussion with the hospitalist, treatment of acute respiratory failure with BiPAP, monitoring respiratory status) Discharge Plan Dx/Rx/DC Orders Clinical Impression: Acute and chronic respiratory failure with hypoxia, History of Coumadin therapy, COVID-19 virus infection, Acute exacerbation of chronic obstructive pulmonary disease, Subtherapeutic phenytoin level Disposition Disposition: Acute Care Hospital [facility] Discharge Date/Time: 03/15/21 21:18
--- NOTE | 2021-03-15 20:03 | PCM.HP.STD ---
HPI - General General Date of Admission: 03/15/21 Date of Service: 03/15/21 Chief Complaint: Dyspnea, cough HPI Narrative The patient is a 55 y/o M w/ PMHx: Chronic anemia/Fe deficiency anemia, COPD w/ Chronic Hypoxic Respiratory Failure, Hx DVT, Valvular Heart Disease s/p AVR, Seizure disorder, HTN, HLD, GERD, Former tobacco use who presents to the [facility] ED on 03/15/21 with history of 24-48 hours onset of fatigue, malaise, fever, chills, nonproductive cough and shortness of breath which severely worsened prompting ED evaluation. Patient denies having any COVID ill contacts. He reports being vaccinated with a 2 dose Moderna series but did not get a booster. Work-up in the ED included T1 101.3, heart rate 126, BP 140/93, respiratory rate 26, initially 84% on 5 L nasal cannula eventually transition to BiPAP on the percent FiO2 in the ED, CBC with WC 7.6, hemoglobin 13, platelet 107 without marked shift, coags with INR 2.1, ABG with pH 7.37, O2 saturation 92%, PCO2 61.8, PO2 67 on BiPAP, BMP with glucose 136, BUN/creatinine 23/1.14, lactic acid 1.3, high-sensitivity cardiac troponin 19, phenytoin level 6.2, chest x-ray with chronic COPD type changes, SARS COVID antigen positive, blood culture x2 pending per ED, urine culture pending per ED. in the ED patient ministered DuoNeb therapy as well as Decadron 6 mg IV x1 and normal saline bolus. [facility] Medical History (Updated 03/16/21 @ 00:[address] Larissa Soto, ) Acute on chronic respiratory failure with hypoxia Alkaline phosphatase elevation Aortic valve disease Bilateral leg edema Cholelithiasis Chronic hypoxemic respiratory failure Chronic respiratory failure COPD (chronic obstructive pulmonary disease) DVT (deep venous thrombosis) Eczema of hand GERD (gastroesophageal reflux disease) History of Coumadin therapy HTN (hypertension) Hyperlipidemia Hypersomnia Hypersomnia Hypoxemic respiratory failure, chronic Iatrogenic pneumothorax Learning disability Mixed obstructive and restrictive ventilatory defect Mood disorder Obesity Seizure disorder Shortness of breath Stage 4 very severe COPD by GOLD classification varicose veins Ventricular septal defect Home Medications Oxygen, Home [Home Oxygen] 2 - 4 lpm NASAL DAILY 04/05/16 [History Last Taken 12/27/20] albuterol sulfate 2.5 mg INHALATION Q4H PRN PRN 04/05/16 [History Last Taken Unknown] aspirin 81 mg tablet,delayed release 81 mg PO DAILY 03/17/17 [History Last Taken Unknown] multivitamin 1 tab PO QDAY 03/17/17 [History Last Taken Unknown] acetaminophen 325 mg tablet 325 mg PO Q6H PRN tab 01/04/20 [History Last Taken Unknown] vitamin B complex 1 tab PO DAILY 01/04/20 [History Last Taken Unknown] aluminum-mag hydroxide-simethicone 200 mg-200 mg-20 mg/5 mL oral susp 30 ml PO Q4H PRN ml 04/18/20 [History Last Taken Unknown] ascorbate calcium (vitamin C) 500 mg tablet 500 mg PO DAILY 04/18/20 [History Last Taken Unknown] bupropion HCl 150 mg tablet,12 hr sustained-release 150 mg PO DAILY 04/18/20 [History Last Taken Unknown] escitalopram oxalate 5 mg tablet 10 mg PO QHS tab 04/18/20 [History Last Taken Unknown] ferrous sulfate 325 mg (65 mg iron) tablet 325 mg PO BID 04/18/20 [History Last Taken Unknown] melatonin 3 mg capsule 5 mg PO HS PRN cap 04/18/20 [History Last Taken Unknown] pantoprazole 20 mg tablet,delayed release 40 mg PO DAILY 04/18/20 [History Last Taken Unknown] warfarin 5 mg tablet 5 mg PO SUMOTUWEFRSA 04/18/20 [History Last Taken Unknown] furosemide 20 mg PO DAILY 10/26/20 [History Last Taken Unknown] Trelegy Ellipta 1 inh INHALATION DAILY 12/27/20 [History Last Taken Unknown] cholecalciferol (vitamin D3) 50,000 unit PO TUFR 12/27/20 [History Last Taken Unknown] metoprolol tartrate 37.5 mg PO BID 12/27/20 [History Last Taken Unknown] phenytoin sodium extended [Dilantin Extended] 100 mg PO TID 12/27/20 [History Last Taken Unknown] potassium chloride 20 meq PO BID 12/27/20 [History Last Taken Unknown] warfarin 6 mg PO TH 12/27/20 [History Last Taken Unknown] prednisone 40 mg PO DAILY #14 tab 12/29/20 [Rx Last Taken Unknown] prednisone 40 mg PO DAILY #10 tab 12/31/20 [Rx Last Taken Unknown] albuterol sulfate 90 mcg/actuation aerosol inhaler 2 puff INHALATION Q4H PRN PRN #6.7 g 01/29/21 [Rx Last Taken Unknown] Allergy/AdvReac Type Severity Reaction Status Date / Time No Known Allergies Allergy Verified 03/15/21 18:35 Family History Father Lung cancer Osteoarthritis Mother Diabetes Thyroid disorder High cholesterol Breast cancer Grandmother Heart disease CVA (cerebral vascular accident) Surgical History Aortic valve replaced avr and aortic homograft closure H/O aortic valve replacement H/O hernia repair S/P VSD repair Social History (Updated 03/16/21 @ 02:[address] Yumiko De Leon MD) household members: none Smoking Status: Former smoker quit date: 03/02/12 pack-years: 40 Tobacco: How many years used: 35 second hand exposure: No alcohol intake: never substance use type: does not use ROS ROS Narrative Admission Review of Systems: CONSTITUTIONAL: No weight loss, + fever, chills, weakness or fatigue. HEENT: Eyes: No visual loss, blurred vision, double vision or yellow sclerae. Ears, Nose, Throat: No hearing loss, sneezing. SKIN: No rash or itching, lesions, wounds. CARDIOVASCULAR: No chest pain, chest pressure or chest discomfort, palpitations, edema, orthopnea, syncopal events. RESPIRATORY: + shortness of breath, cough, No marked sputum, wheezing, hemoptysis. GASTROINTESTINAL: No anorexia, nausea, vomiting, diarrhea, abdominal pain, melena, BRBPR. GENITOURINARY: No dysuria, frequency, urgency or retention. NEUROLOGICAL: + Hx seizures, No headache, dizziness, syncope, paralysis, ataxia, numbness or tingling in the extremities, focal weakness, change in bowel or bladder control. MUSCULOSKELETAL: + muscle, back pain, joint pain or stiffness. HEMATOLOGIC: No anemia, bleeding or bruising. LYMPHATICS: No enlarged nodes. No history of splenectomy. PSYCHIATRIC: No history of depression or anxiety. ENDOCRINOLOGIC: No reports of sweating, cold or heat intolerance. No polyuria or polydipsia. ALLERGIES: No history of asthma, hives, eczema or rhinitis. Vital Signs Vital Signs Vital Signs: 03/15/21 18:36 03/15/21 18:45 03/15/21 18:52 Temperature 101.3 F H 101.3 F H Temperature Source Oral Oral Pulse Rate 126 H 119 H 116 H Respiratory Rate 26 H 21 H 20 H Respiratory Effort Non-Labored Short of Breath Respiratory Depth Shallow Respiratory Pattern Normal Blood Pressure 140/93 H 133/87 H Blood Pressure Mean 108 102 Pulse Ox 84 96 99 Oxygen Delivery Method Nasal Cannula Bi-pap Bi-pap Oxygen Flow Rate (L/min) 5 6 Fraction of Inspired Oxygen (FIO2) 80 03/15/21 18:55 Temperature Temperature Source Pulse Rate 123 H Respiratory Rate 20 H Respiratory Effort Respiratory Depth Respiratory Pattern Normal Blood Pressure Blood Pressure Mean Pulse Ox Oxygen Delivery Method Oxygen Flow Rate (L/min) Fraction of Inspired Oxygen (FIO2) Weight Weight: 214 lb 8.156 oz Body Mass Index (BMI) 31.6 Physical Exam Narrative Physical Examination: General: Awake, alert, oriented x 3 and cooperative, seated upright in the ED bed, fatigued and ill-appearing, increased respiratory rate with accessory muscle usage, BiPAP in place, evidence of respiratory distress. Skin: Normal color, normal turgor, no icterus, no cyanosis. HEENT: AT/NC, EOMI, PERRLA, moderately dry MM, BiPAP in place, no carotid bruits or JVD noted. Lungs: Diffusely diminished, greater bases, increased respiratory rate, accessory muscle usage, BiPAP in place, no rales, ronchi or wheezing. Heart: Tachycardic with regular rhythm; no gallop, rub audible, + SM/mechanical click. Abdomen: Soft, overweight, no obvious tenderness to palpation, nondistended, distant bowel sounds, no obvious HSM. Extremities: No cyanosis, clubbing, or edema. Neurological: Patient awake, alert, oriented as noted, cognitive function intact; pupils equally reactive to light and accommodation, cranial nerves II-XII grossly normal, moving all 4 extremities, no focal deficits, strength severely globally decreased secondary to acute presentation. Psychiatric: Affect appears fatigued, ill-appearing, respiratory failure evident, no acute evidence of depressive or anxiety feelings. Results Lab / Micro Data Result Diagrams: 03/15/21 18:53 03/15/21 18:53 Labs: Laboratory Results - last 24 hr 03/15/21 18:53: WBC 7.6, RBC 4.18 L, Hgb 13.0, Hct 43.2, MCV 103.3 H, MCH 31.1, MCHC 30.1 L, RDW Std Deviation 51.2 H, RDW Coeff of Joseluis 13.5, Plt Count 107 L, MPV 11.6, Immature Gran % (Auto) 0.900, Neut % (Auto) 77.3 H, Lymph % (Auto) 11.0 L, [place] % (Auto) 10.1 H, Eos % (Auto) 0.4, Baso % (Auto) 0.3, Absolute Neuts (auto) 5.9, Absolute Lymphs (auto) 0.84, Nucleated RBC % 0 03/15/21 18:53: Sodium 141, Potassium 4.2, Chloride 102, Carbon Dioxide 37.0 H, Anion Gap 2 L, BUN 23 H, Creatinine 1.14, Estim Creat Clear Calc 72.35, Est GFR (MDRD) Af Amer 85, Est GFR (MDRD) Non-Af 71, BUN/Creatinine Ratio 20.2 H, Glucose 136 H, Calcium 8.5, Troponin I High Sens 19 03/15/21 18:53: B-Natriuretic Peptide 51.0 03/15/21 18:53: Lactic Acid 1.3 03/15/21 18:53: PT 22.4 H, INR 2.1 03/15/21 19:05: Phenytoin 6.2 L Micro: Microbiology 03/15/21 18:50 Nasal Secretion SARS-CoV-2 Antigen (Rapid) - Final SARS-CoV-2 (COVID 19) ABG Data ABG results: ABG 03/15/21 19:17 Specimen Type ART Sample Site R Radial pH 7.37 Bicarbonate Actual 35.6 H Total CO2 38 Base Excess 10 H O2 Saturation 92 L O2 % 50 ABG pCO2 61.8 H ABG pO2 67 L Kurt Test Positive O2 Delivery Device BiPAP Clinical Comments 13/10 12 50% Radiology Impression Chest X-Ray 03/15/21 19:15 IMPRESSION: COPD without acute cardiopulmonary disease or major interval change. Electronically Signed: Isai Law DO at 19:35 EST Tel [phone], Service support , Assessment & Plan Assessment/Plan (1) Acute and chronic respiratory failure with hypoxia: (2) COVID-19 virus infection: PLAN: The patient is a 55 y/o M w/ PMHx: Chronic anemia/Fe deficiency anemia, COPD w/ Chronic Hypoxic Respiratory Failure (3L NC), Hx DVT, Valvular Heart Disease s/p AVR, Seizure disorder, HTN, HLD, GERD, Former tobacco use who presents to the [facility] ED on 03/15/21 with history of 24-48 hours onset of fatigue, malaise, fever, chills, nonproductive cough and shortness of breath which severely worsened prompting ED evaluation. #1. Acute on Chronic Hypoxic Respiratory Failure secondary to Acute Viral Syndrome, COVID-19: Will admit to the ICU, consult Pulm/CC and ID for barcitinib consideration, maintain on COVID precautions, will maintain on oxygen with wean as tolerated to room air, PRN albuterol, HOB, IS parameters w/ pending sputum cultures and urine antigens, will obtain D-dimer, procalcitonin, CRP, CPK, Ferritin, LDH, hepatic profile, continue supportive care including q 2 hour turning including prone given no prone bed availability and judicious hydration, closely monitor for worsening status for ARDS and multiorgan failure, will initiate and continue IV decadron x 10 doses, given presentation will also initiate IV remdesivir but defer to discretion of Infectious disease. #2. Chronic COPD with chronic hypoxic respiratory failure (3L): Currently on BiPAP as noted, wean as tolerated to home supplementation level, hold home inhalers and continue ATC duonebs, PRN albuterol, HOB, IS parameters. #3. Valvular heart disease: 12/13/2019 echocardiogram with EF 65%, segmental dysfunction with preserved EF, postoperative septal motion, trivial MVI, trivial TVI, AV apparatus not well visualized but appears to be stable appearing mechanical aortic valve prosthesis, mild aortic stenosis, RVSP 51 mmHg, diastolic function indeterminate, continued on Coumadin with INR trending. #4. Hypertension: Continue home regimen including metoprolol,, PRN hydralazine. #5. Hyperlipidemia: Not on regimen, defer to outpatient. #6. Anxiety and depression: We will continue patient home BuSpar and escitalopram regimen. #7. Chronic anemia/iron deficiency anemia: Admission hemoglobin 13, stable, continue iron supplementation and trending. #8. Seizure disorder: We will continue patient home phenytoin level. #9. History of VTE: We will continue Coumadin with INR trending. #10. Former tobacco use: Encourage continued tobacco cessation. #11. GERD: We will continue patient on PPI. #12. DVT prophylaxis: SCDs, continue home Coumadin with INR trending. #13. CODE status: Patient does not have healthcare power of defense attorney nor living will in place. Given acute presentation with acute hypoxic respiratory failure with COVID, discussed CODE status at length including difference between FULL code, DNR-CCA and DNR-CC status. Following discussions about the differences in these status, requested Full Code. Amenable to continued BIPAP, intubation if needed, remdesivir and barcitinib. Advanced Care Planning Face to Face Time: 16 minutes. Charges/Coding Visit Charges Inpatient E&M: 60295 Init Hosp L3 Procedures Hospitalists Procedures: 79405 Advncd Care Plan 30 Min
[2021-03-15 21:10] LABS: AST(SGOT) 81 U/L (15-37); Alanine Aminotransfer ALT/SGPT 117 U/L (16-61); Albumin, Serum 3.2 g/dL (3.2-5.0); Alkaline Phosphatase 277 U/L (45-117); Bilirubin, Direct 0.17 mg/dL (0.00-0.30); Ferritin 272 ng/mL (26-388); Globulin 3.8 g/dL (2.2-4.2); LDH 401 U/L (87-241)
[2021-03-15] MEDS: dexAMETHasone 10 MG/ML Vial 6 MG IV (21:13)
[2021-03-15 21:54] LABS: D-Dimer Quantitative (DVT/PE) 0.56 FEU/ug/m (0.27-0.49)
[2021-03-15] MEDS: Acetaminophen 325 MG Tablet 650 MG PO (22:13)
[2021-03-15] MEDS: Metoprolol Tartrate 5 MG/5 ML Vial IV (22:13)
[2021-03-15] MEDS: 0.9% Normal Saline 1,000 ML 100 ML IV (22:19)
[2021-03-15 22:42] LABS: Procalcitonin 0.07 ng/mL (0.00-0.09)
[2021-03-15] MEDS: Escitalopram Oxalate 10 MG Tablet PO (23:18)
[2021-03-15] MEDS: Potassium Chloride Oral Tablet 20 MEQ PO (23:18)
[2021-03-15] MEDS: Metoprolol Tartrate 25 MG Tablet 37.5 MG PO (23:18)
[2021-03-15] MEDS: Ferrous Sulfate 325 MG Tablet PO (23:18)
[2021-03-15] MEDS: Phenytoin Na 100 MG Capsule PO (23:19)
[2021-03-16] VITALS (24 sets, daily range): BP systolic 95–129; BP diastolic 69–104; PULSE 84–99; RESP 12–28; TEMP 36.9–37.4; O2SAT 90–100
[2021-03-16 04:59] LABS: Absolute Neutrophil Count 8.4 X10^3/uL (2.0-7.7); Basophil# 0.01 X10^3/uL; Basophil% 0.1 % (0-1); Hematocrit 40.4 % (40-54); Hemoglobin 12.3 g/dL (13.0-16.5); Lymphocyte % 6.9 % (19-41); Mean Corp Hgb Conc 30.4 g/dL (32-36); Mean Corpuscular Hgb 31.5 pg (27.0-32.0); Mean Corpuscular Volume 103.6 fL (80-94); Mean Platelet Vol. 11.3 fl (6.2-12.0); Monocyte# 0.95 X10^3/uL; Monocyte% 9.4 % (0-10); NRBC Flagged by Analyzer 0 % (0-5); Neutrophil # 8.39 X10^3/uL (2.7-7.7); Neutrophil % 82.6 % (47-70); Platelet Count 104 K/mm3 (150-450); RBC Distribution Width CV 13.7 % (11.6-14.6); RBC Distribution Width SD 52.1 fl (35.1-43.9); White Blood Count 10.2 K/mm3 (4.4-11.0)
[2021-03-16 05:22] LABS: International Normalized Ratio 2.1; Prothrombin Time (Protime)PT. 22.7 SECONDS (11.7-14.9)
[2021-03-16 05:30] LABS: ALB/GLOB Ratio 0.7 RATIO (0.9-2.4); AST(SGOT) 59 U/L (15-37); Alanine Aminotransfer ALT/SGPT 102 U/L (16-61); Albumin, Serum 2.8 g/dL (3.2-5.0); Alkaline Phosphatase 258 U/L (45-117); Anion Gap 3 (5-15); BUN 24 mg/dL (7-18); BUN/Creat Ratio 22.6 RATIO (10-20); Calcium,Total 7.8 mg/dL (8.5-10.1); Chloride 103 mmol/L (98-107); Creatinine, Serum 1.06 mg/dL (0.70-1.30); EST Glomerular Filtration Rate 77 mL/min (>60); Est Glom Filt Rate - Afr Amer 93 mL/min (>60); Estimated Creatinine Clearance 77.81 ml/min; Globulin 3.8 g/dL (2.2-4.2); Glucose 128 mg/dL (74-106); Potassium 5.4 mmol/L (3.5-5.1); Protein, Total 6.6 g/dL (6.4-8.2); Sodium Level 140 mmol/L (136-145)
[2021-03-16] MEDS: Phenytoin Na 100 MG Capsule PO ×3 (06:47→22:35)
--- NOTE | 2021-03-16 06:51 | EX.PCM.CONCC ---
Assessment & Plan Assessment/Plan (1) Acute and chronic respiratory failure with hypoxia: (2) COVID-19 virus infection: PLAN: RECOMMENDATIONS: 1. Transition from BiPAP to nasal cannula oxygen. Wean for saturations greater than 90%. 2. Continue remdesivir and Decadron as ordered. 3. Continue Coumadin per home regimen. Check INR daily. 4. Encourage incentive spirometer use and mobilize patient as tolerated. 5. BiPAP can be utilized, as needed, with naps and nightly. 6. The patient is stable for transfer out of the intensive care unit. IMPRESSIONS: 1. Acute on chronic hypoxemic respiratory failure secondary to COVID-19 pneumonia The patient has known end-stage COPD and is currently on a triple therapy inhaler regimen along with a baseline oxygen requirement of 3 to 5 L/min. He presented with worsening dyspnea and hypoxemia. The patient is vaccinated but not yet boosted. Plan to wean from BiPAP to nasal cannula oxygen this morning. Continue supportive measures including remdesivir, Decadron and bronchodilators. BiPAP can be utilized, if needed, with sleep. Continue Coumadin per outpatient regimen and check INR daily. 2. Valvular heart disease/hypertension/hyperlipidemia/anemia/seizure disorder/prior tobacco dependency/depression Complicates care, management, recovery and prognosis. Continue home medications as indicated. This note was generated with [employer] dictation software. It may contain incorrect words, spelling, and punctuation that were not noted in checking the note before signing. HPI Consult Data Date of Consult: 03/16/21 HPI Narrative Reason for Consultation: Acute on chronic hypoxemic respiratory failure secondary to COVID-19 HPI Narrative: The patient is a 55-year-old male, with a history as outlined below, who presented to the emergency department on March 15 with generalized malaise, fever, shortness of breath and nonproductive cough. The patient is vaccinated but has yet to get a booster. I currently followed the patient in the pulmonary medicine clinic due to a history of mixed obstructive and restrictive ventilatory impairment which is very severe in nature. The patient is maintained on a triple therapy inhaler regimen. He has a baseline supplemental oxygen requirement of 3 L/min. However, the patient admitted that he has had to increase his oxygen up to 5 L/min recently. On presentation to the emergency department, the patient was noted to be febrile, tachycardic and tachypneic. Laboratory evaluation demonstrated no evidence of leukocytosis. Platelet count was low at 107,000. D-dimer was noted to be 0.56. INR was noted to be 2.1. Chemistry profile was notable for a bicarbonate of 37. AST and ALT were increased to 81 and 117, respectively. CRP was elevated at 25. Rapid coronavirus antigen testing was positive. Chest imaging demonstrated hyperinflated lung lynch with chronic interstitial changes without any acute cardiopulmonary process. The patient was started on Decadron along with BiPAP therapy. He was admitted to the medical intensive care unit for further management. No overnight issues were identified by the ICU nursing staff. The patient is currently maintaining appropriate oxygen saturations on BiPAP with an FiO2 of 35%. [facility] Medical History (Updated 03/16/21 @ 00:[address] Larissa Soto DO) Acute on chronic respiratory failure with hypoxia Alkaline phosphatase elevation Aortic valve disease Bilateral leg edema Cholelithiasis Chronic hypoxemic respiratory failure Chronic respiratory failure COPD (chronic obstructive pulmonary disease) DVT (deep venous thrombosis) Eczema of hand GERD (gastroesophageal reflux disease) History of Coumadin therapy HTN (hypertension) Hyperlipidemia Hypersomnia Hypersomnia Hypoxemic respiratory failure, chronic Iatrogenic pneumothorax Learning disability Mixed obstructive and restrictive ventilatory defect Mood disorder Obesity Seizure disorder Shortness of breath Stage 4 very severe COPD by GOLD classification varicose veins Ventricular septal defect Home Medications Oxygen, Home [Home Oxygen] 2 - 4 lpm NASAL DAILY 04/05/16 [History Last Taken 12/27/20] albuterol sulfate 2.5 mg INHALATION Q4H PRN PRN 04/05/16 [History Last Taken Unknown] aspirin 81 mg tablet,delayed release 81 mg PO DAILY 03/17/17 [History Last Taken Unknown] multivitamin 1 tab PO QDAY 03/17/17 [History Last Taken Unknown] acetaminophen 325 mg tablet 325 mg PO Q6H PRN tab 01/04/20 [History Last Taken Unknown] vitamin B complex 1 tab PO DAILY 01/04/20 [History Last Taken Unknown] aluminum-mag hydroxide-simethicone 200 mg-200 mg-20 mg/5 mL oral susp 30 ml PO Q4H PRN ml 04/18/20 [History Last Taken Unknown] ascorbate calcium (vitamin C) 500 mg tablet 500 mg PO DAILY 04/18/20 [History Last Taken Unknown] bupropion HCl 150 mg tablet,12 hr sustained-release 150 mg PO DAILY 04/18/20 [History Last Taken Unknown] escitalopram oxalate 5 mg tablet 10 mg PO QHS tab 04/18/20 [History Last Taken Unknown] ferrous sulfate 325 mg (65 mg iron) tablet 325 mg PO BID 04/18/20 [History Last Taken Unknown] melatonin 3 mg capsule 5 mg PO HS PRN cap 04/18/20 [History Last Taken Unknown] pantoprazole 20 mg tablet,delayed release 40 mg PO DAILY 04/18/20 [History Last Taken Unknown] warfarin 5 mg tablet 5 mg PO SUMOTUWEFRSA 04/18/20 [History Last Taken Unknown] furosemide 20 mg PO DAILY 10/26/20 [History Last Taken Unknown] Trelegy Ellipta 1 inh INHALATION DAILY 12/27/20 [History Last Taken Unknown] cholecalciferol (vitamin D3) 50,000 unit PO TUFR 12/27/20 [History Last Taken Unknown] metoprolol tartrate 37.5 mg PO BID 12/27/20 [History Last Taken Unknown] phenytoin sodium extended [Dilantin Extended] 100 mg PO TID 12/27/20 [History Last Taken Unknown] potassium chloride 20 meq PO BID 12/27/20 [History Last Taken Unknown] warfarin 6 mg PO TH 12/27/20 [History Last Taken Unknown] prednisone 40 mg PO DAILY #14 tab 12/29/20 [Rx Last Taken Unknown] prednisone 40 mg PO DAILY #10 tab 12/31/20 [Rx Last Taken Unknown] albuterol sulfate 90 mcg/actuation aerosol inhaler 2 puff INHALATION Q4H PRN PRN #6.7 g 01/29/21 [Rx Last Taken Unknown] Allergy/AdvReac Type Severity Reaction Status Date / Time No Known Allergies Allergy Verified 03/15/21 18:35 Family History Father Lung cancer Osteoarthritis Mother Diabetes Thyroid disorder High cholesterol Breast cancer Grandmother Heart disease CVA (cerebral vascular accident) Surgical History Aortic valve replaced avr and aortic homograft closure H/O aortic valve replacement H/O hernia repair S/P VSD repair Social History (Updated 03/16/21 @ 02:[address] Yumiko De Leon MD) household members: none Smoking Status: Former smoker quit date: 03/02/12 pack-years: 40 Tobacco: How many years used: 35 second hand exposure: No alcohol intake: never substance use type: does not use ROS Constitutional Constitutional: Reports fatigue, malaise and weakness Eyes Eyes: Denies blurry vision or change in vision ENT HEENT: Denies dizziness, epistaxis or headache(s) Cardiovascular Cardiovascular: Reports dyspnea Respiratory/Chest Respiratory/Chest: Reports cough and dyspnea Gastrointestinal Gastrointestinal: Denies abdominal pain, diarrhea, nausea or vomiting Genitourinary Genitourinary: Denies difficulty urinating Musculoskeletal Musculoskeletal: Denies arthralgias, back pain or joint pain Integumentary Integumentary: Denies lesions, rash or skin ulcer Neurologic Neurologic: Denies abnormal gait Psychiatric Psychiatric: Denies anxiety or depression Endocrine Endocrinology: Reports fatigue Hematologic/Lymphatic Hematologic/Lymphatic: Denies easy bleeding or easy bruising Physical Exam Const alert and no apparent distress General Appearance: cooperative HEENT normocephalic, head/scalp atraumatic and moist oral mucous membranes Eyes EOMs intact bilaterally and conjunctivae normal Neck supple General: trachea midline Resp Effort and Inspection: tachypneic Auscultation: diminished lung sounds Cardio regular rate and regular rhythm GI normal to inspection, nondistended, normoactive bowel sounds Extremity no clubbing, cyanosis or edema Skin no rashes or lesions noted Neuro CN's II-XII intact bilaterally and no focal motor deficits Psych Mood & Affect: flat affect Lab / Micro Data Result Diagrams: 03/16/21 04:50 03/16/21 04:50 Labs: Laboratory Results - last 24 hr 03/15/21 18:53: WBC 7.6, RBC 4.18 L, Hgb 13.0, Hct 43.2, MCV 103.3 H, MCH 31.1, MCHC 30.1 L, RDW Std Deviation 51.2 H, RDW Coeff of Joseluis 13.5, Plt Count 107 L, MPV 11.6, Immature Gran % (Auto) 0.900, Neut % (Auto) 77.3 H, Lymph % (Auto) 11.0 L, [place] % (Auto) 10.1 H, Eos % (Auto) 0.4, Baso % (Auto) 0.3, Absolute Neuts (auto) 5.9, Absolute Lymphs (auto) 0.84, Nucleated RBC % 0 03/15/21 18:53: Sodium 141, Potassium 4.2, Chloride 102, Carbon Dioxide 37.0 H, Anion Gap 2 L, BUN 23 H, Creatinine 1.14, Estim Creat Clear Calc 72.35, Est GFR (MDRD) Af Amer 85, Est GFR (MDRD) Non-Af 71, BUN/Creatinine Ratio 20.2 H, Glucose 136 H, Calcium 8.5, Troponin I High Sens 19 03/15/21 18:53: B-Natriuretic Peptide 51.0 03/15/21 18:53: Lactic Acid 1.3 03/15/21 18:53: PT 22.4 H, INR 2.1 03/15/21 18:53: D-Dimer Quant (PE/DVT) 0.56 H* 03/15/21 18:54: Ferritin 272, Total Bilirubin 0.30, Direct Bilirubin 0.17, AST 81 H, ALT 117 H, Alkaline Phosphatase 277 H, Lactate Dehydrogenase 401 H, C-React Prot Ext Range 25.20 H, Total Protein 7.0, Albumin 3.2, Globulin 3.8 03/15/21 19:05: Phenytoin 6.2 L 03/15/21 21:50: Procalcitonin 0.07 03/16/21 04:50: WBC 10.2, RBC 3.90 L, Hgb 12.3 L, Hct 40.4, MCV 103.6 H, MCH 31.5, MCHC 30.4 L, RDW Std Deviation 52.1 H, RDW Coeff of Joseluis 13.7, Plt Count 104 L, MPV 11.3, Immature Gran % (Auto) 1.000 H, Neut % (Auto) 82.6 H, Lymph % (Auto) 6.9 L, [place] % (Auto) 9.4, Eos % (Auto) 0.0, Baso % (Auto) 0.1, Absolute Neuts (auto) 8.4 H, Absolute Lymphs (auto) 0.70 L, Nucleated RBC % 0 03/16/21 04:50: PT 22.7 H, INR 2.1 03/16/21 04:50: Sodium 140, Potassium 5.4 H, Chloride 103, Carbon Dioxide 34.0 H, Anion Gap 3 L, BUN 24 H, Creatinine 1.06, Estim Creat Clear Calc 77.81, Est GFR (MDRD) Af Amer 93, Est GFR (MDRD) Non-Af 77, BUN/Creatinine Ratio 22.6 H, Glucose 128 H, Calcium 7.8 L, Total Bilirubin 0.40, AST 59 H, ALT 102 H, Alkaline Phosphatase 258 H, Total Protein 6.6, Albumin 2.8 L, Globulin 3.8, Albumin/Globulin Ratio 0.7 L Micro: Microbiology 03/15/21 23:10 Urine, Random Legionella Antigen - Final 03/15/21 23:10 Urine, Random Streptococcus pneumoniae Antigen (M - Final 03/15/21 18:50 Nasal Secretion SARS-CoV-2 Antigen (Rapid) - Final SARS-CoV-2 (COVID 19) ABG Data ABG results: ABG 03/15/21 19:17 Specimen Type ART Sample Site R Radial pH 7.37 Bicarbonate Actual 35.6 H Total CO2 38 Base Excess 10 H O2 Saturation 92 L O2 % 50 ABG pCO2 61.8 H ABG pO2 67 L Kurt Test Positive O2 Delivery Device BiPAP Clinical Comments 13/10 12 50% Rhythm Strip Rhythm Strip: Sinus Tach Rate: 118 Ectopy: None Radiology Impression Chest X-Ray 03/15/21 19:15 IMPRESSION: COPD without acute cardiopulmonary disease or major interval change. Electronically Signed: Isai Law DO at 19:35 EST Tel [phone], Service support , Charges/Coding Visit Charges Inpatient E&M: 41179 Init Hosp L3
[2021-03-16] MEDS: Ipratropium/Albuterol Sulfate 3 ML AMPUL.NEB INHALATION ×3 (07:25→19:22)
--- NOTE | 2021-03-16 11:00 | CASEMGMT ---
QUIN ROLLINS assessment: Initial transition planning/care coordination assessment completed with pt's sister/HPOA, Suzette Rico, via phone. QUIN ROLLINS introduced self and role at [facility], sister voices understanding and consents to assessment. Pt is currently on 6L nc. Pt is A/Ox4 and answers all questions appropriately but sister states pt does not always make best decisions with his healthcare. She states she had to go in and talk with him a few days ago as he was refusing to cooperate with [facility] and his aides. Care providers, pharmacy, and demographics verified. Presentation: Pt was 84% on 5L, SOB, Fever Admitting dx: Acute on chronic resp failure, COVID PCP: Elvis Specialists: [place] pultracy; Mela, cardio; Tonya, neuro Preferred Pharmacy: [facility] Insurance: [facility] A/B, [facility] Prescription Benefit: [facility] Living Will/HPOA: Pt has LW/HPOA and his sister is aware that they are not on file at [facility]. Pt's sister, Suzette Rico, is HPOA. LNOK: Suzette Rico, sister Living Arrangements: Pt lives alone in 1 story apt with no steps and states no concerns at home. Pt has aides that assist with ADL's. Transportation: Pt states sister or aides drive and states no transportation concerns. DME/HHC: Pt states has the following equipment: grab bars, shower chair, cane, rollator, medical alert, lift chair, and 4L nc continuous home oxygen thru [facility], but sister states they were working on switching to [employer] and would like to see if this can be facilitated while he's here. Pt has no need for any further DME. Pt is active with [facility] for SN and has aides 5 days/week for 4 hours/day thru [employer]. Pt has [employer] and MOW's. Pt states has a CM thru [facility], [place], and [facility]. Pt has been to and [facility] in the past. Sister states no concerns with going home at time of discharge. Pt is disabled. Pt does not smoke cigarettes or drink ETOH. Sister voices no further concerns/needs. CM to follow for increased home oxygen need and any further discharge planning/needs. Advised pt to ask for CM if any further questions/concerns/needs arise, voices understanding. Pt goal: Home w/ [place] Plan: Home w/ [place] [facility] SStjoselito RN CM
[2021-03-16] MEDS: buPROPion (SR) 150 MG Tablet.SA PO (11:19)
[2021-03-16] MEDS: Pantoprazole Sodium 40 MG Tablet PO (11:19)
[2021-03-16] MEDS: Potassium Chloride Oral Tablet 20 MEQ PO (11:19)
[2021-03-16] MEDS: Multivitamins,Therapeutic Tablet 1 TABLET PO (11:19)
[2021-03-16] MEDS: Vitamin B Comp W-C Capsule 1 CAP PO (11:19)
[2021-03-16] MEDS: dexAMETHasone 4 MG/ML Vial 6 MG IV (11:19)
[2021-03-16] MEDS: Aspirin E.C. 81 MG Tablet PO (11:20)
[2021-03-16] MEDS: Ferrous Sulfate 325 MG Tablet PO ×2 (11:20→22:36)
[2021-03-16] MEDS: Metoprolol Tartrate 25 MG Tablet 37.5 MG PO ×2 (11:20→22:33)
[2021-03-16] MEDS: Furosemide 20 MG Tablet PO (11:20)
[2021-03-16] MEDS: CHLORHEXIDINE GLUC 2% CLOTH 1 EACH TOWELETTE TOPICAL (11:30)
[2021-03-16] MEDS: Ondansetron 4 MG/2 ML Vial IV (12:09)
--- NOTE | 2021-03-16 13:31 | PN.HOSP_ITS ---
Subjective Subjective Patient seen and examined. He was admitted with a complaint of fever, shortness of breath and nonproductive cough. Patient is vaccinated but does not yet gotten the booster. He usually wears 3 L of oxygen at home but had to go up to 5 L. COVID test done was positive. He has been managed for acute on chronic hy poxic respiratory failure due to COVID-19 pneumonia. Patient was seen in the ICU. He had no active complaints and felt well. Review of systems otherwise negative. He has remained hemodynamically stable. He was now off of BiPAP and on oxygen by nasal cannula. Objective Data Objective Data Vital Signs: Vital Signs Temp Pulse Resp BP Pulse Ox 98.7 F 87 20 H 110/93 H 97 03/16/21 11:00 03/16/21 12:00 03/16/21 11:00 03/16/21 11:00 03/16/21 11:00 Oxygen Flow Rate (L/min) 5 Oxygen Delivery Method Nasal Cannula Weight: 185 lb 3.013 oz Body Mass Index (BMI) 27.1 Intake & Output: Intake and Output for Last 24 Hours 03/14/21 03/15/21 03/16/21 23:59 23:59 23:59 Intake Total 500 / 500 1210 / 1210 Output Total 200 / 200 Balance 500 / 500 1010 / 1010 Lab / Micro Data Result Diagrams: 03/16/21 04:50 03/16/21 04:50 Labs: Laboratory Results - last 24 hr 03/15/21 18:53: WBC 7.6, RBC 4.18 L, Hgb 13.0, Hct 43.2, MCV 103.3 H, MCH 31.1, MCHC 30.1 L, RDW Std Deviation 51.2 H, RDW Coeff of Joseluis 13.5, Plt Count 107 L, MPV 11.6, Immature Gran % (Auto) 0.900, Neut % (Auto) 77.3 H, Lymph % (Auto) 11.0 L, [place] % (Auto) 10.1 H, Eos % (Auto) 0.4, Baso % (Auto) 0.3, Absolute Neuts (auto) 5.9, Absolute Lymphs (auto) 0.84, Nucleated RBC % 0 03/15/21 18:53: Sodium 141, Potassium 4.2, Chloride 102, Carbon Dioxide 37.0 H, Anion Gap 2 L, BUN 23 H, Creatinine 1.14, Estim Creat Clear Calc 72.35, Est GFR (MDRD) Af Amer 85, Est GFR (MDRD) Non-Af 71, BUN/Creatinine Ratio 20.2 H, Glucos e 136 H, Calcium 8.5, Troponin I High Sens 19 03/15/21 18:53: B-Natriuretic Peptide 51.0 03/15/21 18:53: Lactic Acid 1.3 03/15/21 18:53: PT 22.4 H, INR 2.1 03/15/21 18:53: D-Dimer Quant (PE/DVT) 0.56 H* 03/15/21 18:54: Ferritin 272, Total Bilirubin 0.30, Direct Bilirubin 0.17, AST 81 H, ALT 117 H, Alkaline Phosphatase 277 H, Lactate Dehydrogenase 401 H, C- React Prot Ext Range 25.20 H, Total Protein 7.0, Albumin 3.2, Globulin 3.8 03/15/21 19:05: Phenytoin 6.2 L 03/15/21 21:50: Procalcitonin 0.07 03/16/21 04:50: WBC 10.2, RBC 3.90 L, Hgb 12.3 L, Hct 40.4, MCV 103.6 H, MCH 31.5, MCHC 30.4 L, RDW Std Deviation 52.1 H, RDW Coeff of Joseluis 13.7, Plt Count 104 L, MPV 11.3, Immature Gran % (Auto) 1.000 H, Neut % (Auto) 82.6 H, Lymph % (Auto) 6.9 L, [place] % (Auto) 9.4, Eos % (Auto) 0.0, Baso % (Auto) 0.1, Absolute Neuts (auto) 8.4 H, Absolute Lymphs (auto) 0.70 L, Nucleated RBC % 0 03/16/21 04:50: PT 22.7 H, INR 2.1 03/16/21 04:50: Sodium 140, Potassium 5.4 H, Chloride 103, Carbon Dioxide 34.0 H , Anion Gap 3 L, BUN 24 H, Creatinine 1.06, Estim Creat Clear Calc 77.81, Est GFR (MDRD) Af Amer 93, Est GFR (MDRD) Non-Af 77, BUN/Creatinine Ratio 22.6 H, Glucose 128 H, Calcium 7.8 L, Total Bilirubin 0.40, AST 59 H, ALT 102 H, Alkaline Phosphatase 258 H, Total Protein 6.6, Albumin 2.8 L, Globulin 3.8, Albumin/Globulin Ratio 0.7 L Micro: Microbiology 03/15/21 23:10 Urine, Random Legionella Antigen - Final 03/15/21 23:10 Urine, Random Streptococcus pneumoniae Antigen (M - Final 03/15/21 18:50 Nasal Secretion SARS-CoV-2 Antigen (Rapid) - Final SARS-CoV-2 (COVID 19) ABG Data ABG results: ABG 03/15/21 19:17 Specimen Type ART Sample Site R Radial pH 7.37 Bicarbonate Actual 35.6 H Total CO2 38 Base Excess 10 H O2 Saturation 92 L O2 % 50 ABG pCO2 61.8 H ABG pO2 67 L Kurt Test Positive O2 Delivery Device BiPAP Clinical Comments 13/10 12 50% Radiography Diagnostic Testing: Radiology Impression Chest X-Ray 03/15/21 19:15 IMPRESSION: COPD without acute cardiopulmonary disease or major interval change. Electronically Signed: Isai Law DO at 19:35 EST Tel [phone], Service support , Rhythm Strip Rhythm Strip: Sinus Tach Rate: 118 Ectopy: None Physical Exam Const alert Constitutional Narrative: flat affect, cooperative Exam Limitations: no limitations HEENT head/scalp atraumatic Head and Scalp: normocephalic Mouth: dry mucous membranes Eyes PERRL, EOMs intact bilaterally and conjunctivae normal Neck no lymphadenopathy, supple and no JVD Resp Resp Narrative: Diminished breath sounds bibasilarly. No wheezes or crackles. On 3 L of oxygen. Cardio regular rate, regular rhythm, S1 normal heart sound, S2 normal heart sound and no murmurs GI normal to inspection, nondistended, normoactive bowel sounds, soft to palpation, non-tender and non-distended Extremity normal to inspection, full ROM and no clubbing, cyanosis or edema Peripheral Pulses: Yes pulses 2+ throughout Skin no rashes or lesions noted Neuro oriented x3, CN's II-XII intact bilaterally and moves all extremities Sensorium / Orientation: awake and alert Psych affect normal Assessment & Plan Assessment/Plan (1) Acute and chronic respiratory failure with hypoxia: (2) COVID-19 virus infection: PLAN: #Acute on chronic hypoxic respiratory fialure due to covid pneumonia * titrate oxyen to maintain sats >90% * o decadron and remdesivir * sputum cultures pending * breating treatment with bronchodilators * critical care on board #Hypertension: On metoprolol. IV hydralazine as needed #Valvular heart disease: Has a mechanical aortic valve prosthesis. On Coumadin. INR is therapeutic. #Hyperlipidemia: Not on any medication. Follow-up with PCP on outpatient basis. #Seizure disorder: On phenytoin #Depression: On BuSpar and escitalopram DVT prophylaxis: On Coumadin. INR therapeutic. INR today is 2.1. Disposition: Transfer out of ICU to [facility] floor. Charges/Coding Visit Charges Inpatient E&M: 10171 Subs Hosp L2
[2021-03-16] MEDS: Budesonide Respules 0.5 MG/2 ML AMPUL.NEB. INHALATION (19:22)
--- NOTE | 2021-03-16 20:35 | PCM.HOSP.N ---
Hospitalist Note Called w/ 1 of 2 preliminary cultures w/ GPC clusters, currently procal normal, no marked WBC elevation or L shift, potentially contaminant, will hold on treatment and await further speciation and for 2nd culture. If concerns we can add abx in the interim.
[2021-03-16] MEDS: Escitalopram Oxalate 10 MG Tablet PO (22:35)
[2021-03-17] VITALS (21 sets, daily range): BP systolic 101–123; BP diastolic 69–79; PULSE 71–92; RESP 12–23; TEMP 36.7–36.9; O2SAT 90–95
[2021-03-17] MEDS: Phenytoin Na 100 MG Capsule PO ×3 (06:05→21:35)
--- NOTE | 2021-03-17 06:30 | PN.CC_ITS ---
Assessment & Plan Assessment/Plan (1) Acute and chronic respiratory failure with hypoxia: (2) COVID-19 virus infection: PLAN: RECOMMENDATIONS: 1. Wean supplemental oxygen to maintain saturations at or above 90%. 2. Continue remdesivir and Decadron as ordered. 3. Continue Coumadin per home regimen. Check INR daily. 4. Encourage incentive spirometer use and mobilize patient as tolerated. 5. Continue BiPAP support with naps and nightly. IMPRESSIONS: 1. Acute on chronic hypoxemic respiratory failure secondary to COVID-19 pneumonia The patient has known end-stage COPD and is currently on a triple therapy inhaler regimen along with a baseline oxygen requirement of 3 to 5 L/min. He presented with worsening dyspnea and hypoxemia. The patient is vaccinated but not yet boosted. Plan to continue supplemental oxygen via nasal cannula throughout the day with BiPAP support at night as tolerated. Continue supportive measures including remdesivir, Decadron and bronchodilators. Continue Coumadin per outpatient regimen and check INR daily. 2. Valvular heart disease/hypertension/hyperlipidemia/anemia/seizure diso rder/prior tobacco dependency/depression Complicates care, management, recovery and prognosis. Continue home medications as indicated. This note was generated with [employer] dictation software. It may contain incorrect words, spelling, and punctuation that were not noted in checking the note before signing. Subjective Subjective The patient was seen and examined at the bedside this morning. Events from the last 24 hours have been reviewed. The patient is afebrile and hemodynamically stable. He was maintained on nasal cannula oxygen throughout the day yesterday and placed on BiPAP for overnight support. He is currently documented to be overall net +1.3 L for the hospitalization. He remains on remdesivir and Decadron. Repeat morning labs are still pending. Objective Data Objective Data The patient's most recent lab work, culture data and imaging studies have all been personally reviewed. Rapid coronavirus antigen testing was positive on March 15. Strep and urine Legionella antigens were negative. Vital Signs: Vital Signs Temp Pulse Resp BP Pulse Ox 98.0 F 80 23 H 123/79 H 92 03/17/21 02:12 03/17/21 04:53 03/17/21 03:51 03/17/21 02:12 03/17/21 03:51 Oxygen Flow Rate (L/min) 8 Oxygen Delivery Method Bi-pap Weight: 86.6 kg Body Mass Index (BMI) 27.1 Intake & Output: Intake and Output for Last 24 Hours 03/15/21 03/16/21 03/17/21 23:59 23:59 23:59 Intake Total 500 / 500 1210 / 1210 250 / 250 Output Total 625 / 625 0 / 0 Balance 500 / 500 585 / 585 250 / 250 Lab / Micro Data Attestation: I reviewed the patient's lab results. Result Diagrams: 03/16/21 04:50 03/16/21 04:50 Micro: Microbiology 03/15/21 19:05 Blood Culture (Wb) - Left Wrist Bacteria Detection (PCR) - Preliminary Coag Negative Staph 03/15/21 19:05 Blood Culture (Wb) - Left Wrist Blood Culture - Preliminary 03/15/21 23:10 Urine, Random Legionella Antigen - Final 03/15/21 23:10 Urine, Random Streptococcus pneumoniae Antigen (M - Final 03/15/21 18:50 Nasal Secretion SARS-CoV-2 Antigen (Rapid) - Final SARS-CoV-2 (COVID 19) Rhythm Strip Rhythm Strip: Sinus Tach Rate: 118 Ectopy: None Physical Exam Const alert and no apparent distress General Appearance: cooperative HEENT normocephalic, head/scalp atraumatic and moist oral mucous membranes Eyes EOMs intact bilaterally and conjunctivae normal Neck supple General: trachea midline Resp Effort and Inspection: tachypneic Auscultation: diminished lung sounds Cardio regular rate and regular rhythm GI normal to inspection, nondistended, normoactive bowel sounds Extremity no clubbing, cyanosis or edema Skin no rashes or lesions noted Neuro CN's II-XII intact bilaterally and no focal motor deficits Psych Mood & Affect: flat affect Charges/Coding Visit Charges Inpatient E&M: 96956 Subs Hosp L2
[2021-03-17] MEDS: Budesonide Respules 0.5 MG/2 ML AMPUL.NEB. INHALATION ×2 (07:13→18:44)
[2021-03-17] MEDS: Ipratropium/Albuterol Sulfate 3 ML AMPUL.NEB INHALATION ×2 (07:14→18:44)
[2021-03-17 08:47] LABS: Absolute Lymphocyte Count 0.96 X10^3/uL (0.83-4.51); Absolute Neutrophil Count 3.6 X10^3/uL (2.0-7.7); Basophil# 0.01 X10^3/uL; Basophil% 0.2 % (0-1); Eosinophil# 0.05 X10^3/uL; Hematocrit 37.5 % (40-54); Hemoglobin 11.6 g/dL (13.0-16.5); Lymphocyte # 0.96 X10^3/ul (0.83-4.51); Lymphocyte % 18.4 % (19-41); Mean Corp Hgb Conc 30.9 g/dL (32-36); Mean Corpuscular Volume 103.3 fL (80-94); Mean Platelet Vol. 12.2 fl (6.2-12.0); Monocyte# 0.57 X10^3/uL; Monocyte% 10.9 % (0-10); NRBC Flagged by Analyzer 0 % (0-5); Neutrophil # 3.55 X10^3/uL (2.7-7.7); Neutrophil % 68.2 % (47-70); Platelet Count 100 K/mm3 (150-450); RBC Distribution Width CV 13.7 % (11.6-14.6); RBC Distribution Width SD 52.2 fl (35.1-43.9); Red Blood Count 3.63 M/mm3 (4.6-6.2); White Blood Count 5.2 K/mm3 (4.4-11.0)
--- NOTE | 2021-03-17 08:48 | PCS.PANDOC ---
PANDEMIC DOCUMENTATION INITIATED: Date: 10/15/2020 Time: 190
[2021-03-17 09:11] LABS: ALB/GLOB Ratio 0.8 RATIO (0.9-2.4); AST(SGOT) 48 U/L (15-37); Alanine Aminotransfer ALT/SGPT 78 U/L (16-61); Albumin, Serum 2.8 g/dL (3.2-5.0); Alkaline Phosphatase 222 U/L (45-117); BUN 30 mg/dL (7-18); BUN/Creat Ratio 29.4 RATIO (10-20); Creatinine, Serum 1.02 mg/dL (0.70-1.30); EST Glomerular Filtration Rate 80 mL/min (>60); Est Glom Filt Rate - Afr Amer 97 mL/min (>60); Estimated Creatinine Clearance 80.87 ml/min; Globulin 3.4 g/dL (2.2-4.2); Glucose 97 mg/dL (74-106); Potassium 3.9 mmol/L (3.5-5.1); Protein, Total 6.2 g/dL (6.4-8.2); Sodium Level 141 mmol/L (136-145)
[2021-03-17 09:12] LABS: Anion Gap 5 (5-15); Chloride 102 mmol/L (98-107)
[2021-03-17 09:16] LABS: International Normalized Ratio 2.4; Prothrombin Time (Protime)PT. 25.6 SECONDS (11.7-14.9)
[2021-03-17] MEDS: Aspirin E.C. 81 MG Tablet PO (09:40)
[2021-03-17] MEDS: Multivitamins,Therapeutic Tablet 1 TABLET PO (09:41)
[2021-03-17] MEDS: Furosemide 40 MG/4 ML Vial IV (09:41)
[2021-03-17] MEDS: dexAMETHasone 4 MG/ML Vial 6 MG IV (09:41)
[2021-03-17] MEDS: Pantoprazole Sodium 40 MG Tablet PO (09:41)
[2021-03-17] MEDS: Ferrous Sulfate 325 MG Tablet PO ×2 (09:41→21:35)
[2021-03-17] MEDS: Vitamin B Comp W-C Capsule 1 CAP PO (09:41)
[2021-03-17] MEDS: buPROPion (SR) 150 MG Tablet.SA PO (09:42)
[2021-03-17] MEDS: Metoprolol Tartrate 25 MG Tablet 37.5 MG PO ×2 (09:42→21:36)
--- NOTE | 2021-03-17 15:04 | PN.HOSP_ITS ---
Subjective Subjective Patient seen and examined. He had no active complaints and felt well. He was now on 8L of oxygen by nasal canula. Review of systems is otherwise negative. Objective Data Objective Data Vital Signs: Vital Signs Temp Pulse Resp BP Pulse Ox 98.4 F 82 18 109/71 94 03/17/21 13:47 03/17/21 14:00 03/17/21 14:00 03/17/21 13:47 03/17/21 13:47 Oxygen Flow Rate (L/min) 5 Oxygen Delivery Method Nasal Cannula Weight: 190 lb 14.725 oz Body Mass Index (BMI) 27.1 Intake & Output: Intake and Output for Last 24 Hours 03/15/21 03/16/21 03/17/21 23:59 23:59 23:59 Intake Total 500 / 500 1210 / 1210 1150 / 1150 Output Total 625 / 625 550 / 550 Balance 500 / 500 585 / 585 600 / 600 Lab / Micro Data Result Diagrams: 03/17/21 07:49 03/17/21 07:49 Labs: Laboratory Results - last 24 hr 03/17/21 07:49: WBC 5.2, RBC 3.63 L, Hgb 11.6 L, Hct 37.5 L, MCV 103.3 H, MCH 32.0, MCHC 30.9 L, RDW Std Deviation 52.2 H, RDW Coeff of Joseluis 13.7, Plt Count 100 L, MPV 12.2 H, Immature Gran % (Auto) 1.300 H, Neut % (Auto) 68.2, Lymph % (Auto) 18.4 L, [place] % (Auto) 10.9 H, Eos % (Auto) 1.0, Baso % (Auto) 0.2, Absolute Neuts (auto) 3.6, Absolute Lymphs (auto) 0.96, Nucleated RBC % 0 03/17/21 07:49: Sodium 141, Potassium 3.9, Chloride 102, Carbon Dioxide 34.0 H, Anion Gap 5, BUN 30 H, Creatinine 1.02, Estim Creat Clear Calc 80.87, Est GFR (MDRD) Af Amer 97, Est GFR (MDRD) Non-Af 80, BUN/Creatinine Ratio 29.4 H, Glucose 97, Calcium 8.0 L, Total Bilirubin 0.40, AST 48 H, ALT 78 H, Alkaline Phosphatase 222 H, Total Protein 6.2 L, Albumin 2.8 L, Globulin 3.4, Albumin/Globulin Ratio 0.8 L 03/17/21 07:49: PT 25.6 H, INR 2.4 Micro: Microbiology 03/15/21 19:05 Blood Culture (Wb) - Left Wrist Bacteria Detection (PCR) - Final Coag Negative Staph 03/15/21 19:05 Blood Culture (Wb) - Left Wrist Blood Culture - Preliminary Coag Negative Staph 03/15/21 23:10 Urine, Random Legionella Antigen - Final 03/15/21 23:10 Urine, Random Streptococcus pneumoniae Antigen (M - Final 03/15/21 18:50 Nasal Secretion SARS-CoV-2 Antigen (Rapid) - Final SARS-CoV-2 (COVID 19) Rhythm Strip Rhythm Strip: Sinus Tach Rate: 118 Ectopy: None Physical Exam Const alert, oriented x3 and no apparent distress Exam Limitations: no limitations HEENT head/scalp atraumatic Head and Scalp: normocephalic Eyes PERRL, EOMs intact bilaterally and conjunctivae normal Neck no lymphadenopathy, supple and no JVD Resp Resp Narrative: Diminished breath sounds bibasilarly. No wheezes or crackles. On 3 L of oxygen. Cardio regular rate, regular rhythm, S1 normal heart sound, S2 normal heart sound and no murmurs Cardio Narrative: mechanical aortic valve click GI normal to inspection, nondistended, normoactive bowel sounds, soft to palpation, non-tender and non-distended Extremity normal to inspection, full ROM and no clubbing, cyanosis or edema Peripheral Pulses: Yes pulses 2+ throughout Skin no rashes or lesions noted Neuro oriented x3, CN's II-XII intact bilaterally and moves all extremities Sensorium / Orientation: awake and alert Psych affect normal Assessment & Plan Assessment/Plan (1) Acute and chronic respiratory failure with hypoxia: (2) COVID-19 virus infection: PLAN: #Acute on chronic hypoxic respiratory faillure due to covid pneumonia * titrate oxygen to maintain sats >90% * on 8L of oxygen today. * o decadron and remdesivir * sputum cultures pending * urine for strep and legionella negative. * breathing treatment with bronchodilators * critical care on board * blood PRC showing coagulase negative staph. * preliminary blood cultures growing Coagulase negative staph, which is thought to be due to a skin contaminant. #Hypertension: On metoprolol. IV hydralazine as needed #Valvular heart disease: Has a mechanical aortic valve prosthesis. On Coumadin. INR is therapeutic. #Hyperlipidemia: Not on any medication. Follow-up with PCP on outpatient basis. #Seizure disorder: On phenytoin #Depression: On BuSpar and escitalopram DVT prophylaxis: On Coumadin. INR therapeutic. INR today is 2.4 Charges/Coding Visit Charges Inpatient E&M: 45689 Subs Hosp L2
[2021-03-17] MEDS: Escitalopram Oxalate 10 MG Tablet PO (21:35)
[2021-03-17] MEDS: 0.9% Saline Lock 10 ML Syringe IV (21:38)
[2021-03-18] VITALS (19 sets, daily range): BP systolic 109–117; BP diastolic 58–78; PULSE 73–98; RESP 12–20; TEMP 36.4–36.8; O2SAT 91–96
[2021-03-18] MEDS: Phenytoin Na 100 MG Capsule PO ×3 (06:13→20:30)
[2021-03-18 07:20] LABS: Absolute Neutrophil Count 2.5 X10^3/uL (2.0-7.7); Basophil# 0.02 X10^3/uL; Basophil% 0.5 % (0-1); Eosinophil# 0.08 X10^3/uL; Hematocrit 38.6 % (40-54); Hemoglobin 11.6 g/dL (13.0-16.5); Lymphocyte % 22.1 % (19-41); Mean Corp Hgb Conc 30.1 g/dL (32-36); Mean Corpuscular Hgb 31.1 pg (27.0-32.0); Mean Corpuscular Volume 103.5 fL (80-94); Mean Platelet Vol. 12.2 fl (6.2-12.0); Monocyte# 0.51 X10^3/uL; Monocyte% 12.5 % (0-10); NRBC Flagged by Analyzer 0 % (0-5); Neutrophil # 2.51 X10^3/uL (2.7-7.7); Neutrophil % 61.4 % (47-70); Platelet Count 126 K/mm3 (150-450); RBC Distribution Width CV 13.5 % (11.6-14.6); RBC Distribution Width SD 51.6 fl (35.1-43.9); Red Blood Count 3.73 M/mm3 (4.6-6.2); White Blood Count 4.1 K/mm3 (4.4-11.0)
[2021-03-18] MEDS: Ipratropium/Albuterol Sulfate 3 ML AMPUL.NEB INHALATION ×3 (07:33→20:50)
[2021-03-18] MEDS: Budesonide Respules 0.5 MG/2 ML AMPUL.NEB. INHALATION (07:33)
[2021-03-18 07:47] LABS: ALB/GLOB Ratio 0.8 RATIO (0.9-2.4); AST(SGOT) 57 U/L (15-37); Alanine Aminotransfer ALT/SGPT 84 U/L (16-61); Albumin, Serum 2.7 g/dL (3.2-5.0); Alkaline Phosphatase 203 U/L (45-117); Anion Gap 3 (5-15); BUN 34 mg/dL (7-18); BUN/Creat Ratio 37.7 RATIO (10-20); Calcium,Total 8.2 mg/dL (8.5-10.1); Chloride 101 mmol/L (98-107); EST Glomerular Filtration Rate 93 mL/min (>60); Est Glom Filt Rate - Afr Amer 112 mL/min (>60); Estimated Creatinine Clearance 91.65 ml/min; Globulin 3.5 g/dL (2.2-4.2); Glucose 103 mg/dL (74-106); Potassium 4.1 mmol/L (3.5-5.1); Protein, Total 6.2 g/dL (6.4-8.2); Sodium Level 140 mmol/L (136-145)
--- NOTE | 2021-03-18 08:25 | PN.CC_ITS ---
Assessment & Plan Assessment/Plan (1) Acute and chronic respiratory failure with hypoxia: (2) COVID-19 virus infection: PLAN: RECOMMENDATIONS: 1. Wean supplemental oxygen to maintain saturations at or above 90%. 2. Continue remdesivir (03/19/2021) and Decadron (03/25/2021) as ordered. 3. Continue Coumadin per home regimen. Check INR daily. 4. Encourage incentive spirometer use and mobilize patient as tolerated. 5. Continue BiPAP support with naps and nightly. IMPRESSIONS: 1. Acute on chronic hypoxemic respiratory failure secondary to COVID-19 pneumonia The patient has known end-stage COPD and is currently on a triple therapy inhaler regimen along with a baseline oxygen requirement of 3 to 5 L/min. He presented with worsening dyspnea and hypoxemia. The patient is vaccinated but not yet boosted. Plan to continue supplemental oxygen via nasal cannula throughout the day with BiPAP support at night as tolerated. Continue supportive measures including remdesivir, Decadron and bronchodilators. Continue Coumadin per outpatient regimen and check INR daily. Dose with additional Lasix this afternoon. Walking oximetry daily. 2. Valvular heart disease/hypertension/hyperlipidemia/anemia/seizure d isorder/prior tobacco dependency/depression Complicates care, management, recovery and prognosis. Continue home medications as indicated. This note was generated with [employer] dictation software. It may contain incorrect words, spelling, and punctuation that were not noted in checking the note before signing. Subjective Subjective Patient did well overnight. No acute issues were reported. Patient subjecti vely feels slightly improved compared to yesterday. Patient does have a cough productive of clear to white sputum. No bleeding has been reported. Objective Data Objective Data Vital Signs: Vital Signs Temp Pulse Resp BP Pulse Ox 36.4 C L 80 19 H 117/78 94 03/18/21 03:49 03/18/21 07:34 03/18/21 07:34 03/18/21 03:49 03/18/21 07:34 Oxygen Flow Rate (L/min) 6 Oxygen Delivery Method Nasal Cannula Weight: 83.8 kg Body Mass Index (BMI) 27.1 Intake & Output: Intake and Output for Last 24 Hours 03/16/21 03/17/21 03/18/21 23:59 23:59 23:59 Intake Total 1210 / 1210 1150 / 1150 250 / 250 Output Total 625 / 625 650 / 650 300 / 300 Balance 585 / 585 500 / 500 -50 / -50 Lab / Micro Data Result Diagrams: 03/18/21 07:00 03/18/21 07:00 Labs: Laboratory Results - last 24 hr 03/17/21 07:49: WBC 5.2, RBC 3.63 L, Hgb 11.6 L, Hct 37.5 L, MCV 103.3 H, MCH 32.0, MCHC 30.9 L, RDW Std Deviation 52.2 H, RDW Coeff of Jsoeluis 13.7, Plt Count 1 00 L, MPV 12.2 H, Immature Gran % (Auto) 1.300 H, Neut % (Auto) 68.2, Lymph % (Auto) 18.4 L, [place] % (Auto) 10.9 H, Eos % (Auto) 1.0, Baso % (Auto) 0.2, Absolute Neuts (auto) 3.6, Absolute Lymphs (auto) 0.96, Nucleated RBC % 0 03/17/21 07:49: Sodium 141, Potassium 3.9, Chloride 102, Carbon Dioxide 34.0 H, Anion Gap 5, BUN 30 H, Creatinine 1.02, Estim Creat Clear Calc 80.87, Est GFR (MDRD) Af Amer 97, Est GFR (MDRD) Non-Af 80, BUN/Creatinine Ratio 29.4 H, Glucose 97, Calcium 8.0 L, Total Bilirubin 0.40, AST 48 H, ALT 78 H, Alkaline Phosphatase 222 H, Total Protein 6.2 L, Albumin 2.8 L, Globulin 3.4, Albumin/Globulin Ratio 0.8 L 03/17/21 07:49: PT 25.6 H, INR 2.4 03/18/21 07:00: WBC 4.1 L, RBC 3.73 L, Hgb 11.6 L, Hct 38.6 L, MCV 103.5 H, MCH 31.1, MCHC 30.1 L, RDW Std Deviation 51.6 H, RDW Coeff of Joseluis 13.5, Plt Count 126 L, MPV 12.2 H, Immature Gran % (Auto) 1.500 H, Neut % (Auto) 61.4, Lymph % (Auto) 22.1, [place] % (Auto) 12.5 H, Eos % (Auto) 2.0, Baso % (Auto) 0.5, Absolute Neuts (auto) 2.5, Absolute Lymphs (auto) 0.90, Nucleated RBC % 0 03/18/21 07:00: Sodium 140, Potassium 4.1, Chloride 101, Carbon Dioxide 36.0 H, Anion Gap 3 L, BUN 34 H, Creatinine 0.90, Estim Creat Clear Calc 91.65, Est GFR (MDRD) Af Amer 112, Est GFR (MDRD) Non-Af 93, BUN/Creatinine Ratio 37.7 H, Glucose 103, Calcium 8.2 L, Total Bilirubin 0.40, AST 57 H, ALT 84 H, Alkaline Phosphatase 203 H, Total Protein 6.2 L, Albumin 2.7 L, Globulin 3.5, Albumin/Globulin Ratio 0.8 L Micro: Microbiology 03/15/21 19:05 Blood Culture (Wb) - Left Wrist Bacteria Detection (PCR) - Final Coag Negative Staph 03/15/21 19:05 Blood Culture (Wb) - Left Wrist Blood Culture - Preliminary Coag Negative Staph 03/15/21 23:10 Urine, Random Legionella Antigen - Final 03/15/21 23:10 Urine, Random Streptococcus pneumoniae Antigen (M - Final 03/15/21 18:50 Nasal Secretion SARS-CoV-2 Antigen (Rapid) - Final SARS-CoV-2 (COVID 19) Rhythm Strip Rhythm Strip: Sinus Tach Rate: 118 Ectopy: None Physical Exam Const alert and no apparent distress General Appearance: cooperative HEENT normocephalic, head/scalp atraumatic and moist oral mucous membranes Eyes EOMs intact bilaterally and conjunctivae normal Neck supple General: trachea midline Chest inspection of chest normal Chest: symmetrical chest wall rise; Negative for crepitus Resp normal respiratory effort Auscultation: diminished lung sounds; Negative for rales, rhonchi or wheezes Cardio regular rate, regular rhythm, no murmurs, no rub and no gallops Cardio Narrative: Mechanical heart sounds GI normal to inspection, nondistended, normoactive bowel sounds Extremity no clubbing, cyanosis or edema Skin no rashes or lesions noted Neuro CN's II-XII intact bilaterally and no focal motor deficits Psych Mood & Affect: flat affect Charges/Coding Visit Charges Inpatient E&M: 84618 Subs Hosp L2
[2021-03-18] MEDS: Metoprolol Tartrate 25 MG Tablet 37.5 MG PO ×2 (09:10→20:30)
[2021-03-18] MEDS: Pantoprazole Sodium 40 MG Tablet PO ×2 (09:10→09:11)
[2021-03-18] MEDS: Ferrous Sulfate 325 MG Tablet PO ×2 (09:11→20:30)
[2021-03-18] MEDS: Aspirin E.C. 81 MG Tablet PO (09:11)
[2021-03-18] MEDS: Multivitamins,Therapeutic Tablet 1 TABLET PO (09:11)
[2021-03-18] MEDS: Vitamin B Comp W-C Capsule 1 CAP PO (09:11)
[2021-03-18] MEDS: dexAMETHasone 4 MG/ML Vial 6 MG IV (09:12)
[2021-03-18] MEDS: Furosemide 20 MG Tablet PO ×2 (09:12→17:27)
[2021-03-18] MEDS: buPROPion (SR) 150 MG Tablet.SA PO (09:13)
--- NOTE | 2021-03-18 11:30 | PN.HOSP_ITS ---
Subjective Subjective Doing well, no issues overnight. He states that he is on a baseline of 4 L of oxygen at home Objective Data Objective Data Vital Signs: Vital Signs Temp Pulse Resp BP Pulse Ox 97.7 F L 90 16 109/58 L 94 03/18/21 09:07 03/18/21 09:10 03/18/21 09:07 03/18/21 09:07 03/18/21 09:07 Oxygen Flow Rate (L/min) 6 Oxygen Delivery Method Nasal Cannula Weight: 184 lb 11.958 oz Body Mass Index (BMI) 27.1 Intake & Output: Intake and Output for Last 24 Hours 03/17/21 03/18/21 03/19/21 03:59 03:59 03:59 Intake Total 1210 / 1210 1150 / 1150 Output Total 625 / 625 650 / 650 300 / 300 Balance 585 / 585 500 / 500 -300 / -300 Lab / Micro Data Result Diagrams: 03/18/21 07:00 03/18/21 07:00 Labs: Laboratory Results - last 24 hr 03/18/21 07:00: WBC 4.1 L, RBC 3.73 L, Hgb 11.6 L, Hct 38.6 L, MCV 103.5 H, MCH 31.1, MCHC 30.1 L, RDW Std Deviation 51.6 H, RDW Coeff of Joseluis 13.5, Plt Count 126 L, MPV 12.2 H, Immature Gran % (Auto) 1.500 H, Neut % (Auto) 61.4, Lymph % (Auto) 22.1, [place] % (Auto) 12.5 H, Eos % (Auto) 2.0, Baso % (Auto) 0.5, Absolute Neuts (auto) 2.5, Absolute Lymphs (auto) 0.90, Nucleated RBC % 0 03/18/21 07:00: Sodium 140, Potassium 4.1, Chloride 101, Carbon Dioxide 36.0 H, Anion Gap 3 L, BUN 34 H, Creatinine 0.90, Estim Creat Clear Calc 91.65, Est GFR (MDRD) Af Amer 112, Est GFR (MDRD) Non-Af 93, BUN/Creatinine Ratio 37.7 H, Glucose 103, Calcium 8.2 L, Total Bilirubin 0.40, AST 57 H, ALT 84 H, Alkaline Phosphatase 203 H, Total Protein 6.2 L, Albumin 2.7 L, Globulin 3.5, A lbumin/Globulin Ratio 0.8 L Micro: Microbiology 03/15/21 18:53 Blood Culture (Wb) #2 - Anticubital Left Blood Culture - Preliminary No growth in 48 hours. 03/15/21 19:05 Blood Culture (Wb) - Left Wrist Bacteria Detection (PCR) - Final Coag Negative Staph 03/15/21 19:05 Blood Culture (Wb) - Left Wrist Blood Culture - Preliminary Coag Negative Staph 03/15/21 23:10 Urine, Random Legionella Antigen - Final 03/15/21 23:10 Urine, Random Streptococcus pneumoniae Antigen (M - Final 03/15/21 18:50 Nasal Secretion SARS-CoV-2 Antigen (Rapid) - Final SARS-CoV-2 (COVID 19) Rhythm Strip Rhythm Strip: Sinus Tach Rate: 118 Ectopy: None Physical Exam Const alert, oriented x3 and no apparent distress General Appearance: cooperative HEENT normocephalic and moist oral mucous membranes Eyes PERRL, EOMs intact bilaterally and conjunctivae normal Neck supple and no JVD Resp normal respiratory effort, no retractions and no use of accessory muscles Auscultation: diminished lung sounds; Negative for crackles, rales, rhonchi or wheezes Cardio regular rate, regular rhythm, S1 normal heart sound, S2 normal heart sound and no murmurs GI soft to palpation, non-tender and non-distended; Negative for hepatosplenomegaly Extremity no clubbing, cyanosis or edema Skin no rashes or lesions noted Neuro no focal motor deficits and no sensory deficits noted Psych affect normal Appearance: appropriate Assessment & Plan Assessment/Plan (1) Acute and chronic respiratory failure with hypoxia: (2) COVID-19 virus infection: PLAN: #Acute on chronic hypoxic respiratory faillure due to covid pneu monia * titrate oxygen to maintain sats >90% * on 6L of oxygen today. * on decadron and remdesivir * urine for strep and legionella negative. * breathing treatment with bronchodilators * Pulmonology on board #Hypertension: On metoprolol. IV hydralazine as needed #Valvular heart disease: Has a mechanical aortic valve prosthesis. On Coumadin. INR is therapeutic. #Hyperlipidemia: Not on any medication. Follow-up with PCP on outpatient basis. #Seizure disorder: On phenytoin #Depression: On BuSpar and escitalopram DVT: On Coumadin Charges/Coding Visit Charges Inpatient E&M: 88964 Subs Hosp L2
--- NOTE | 2021-03-18 13:50 | CASEMGMT ---
QUIN ROLLINS NOTE: PT/OT notes reviewed. Pt only able to ambulate 12 ft yesterday d/t desatting w/activity. Today, therapy worked w/pt and exercises completed while pt in bed. Per Betzy TSAI, pt needs much encouragement to do activity/get OOB. Call placed to [facility]. She confirmed pt is active w/them for SN and states can add PT/OT back on if needed. QUIN ROLLINS to room to talk w/pt. Pt confirms he wishes to return home and would like [facility] w/[facility]. QUIN ROLLINS encouraged pt to increase activity and to get OOB often and instructed in importance of having staff assist him d/t weakness for safety. Call placed to [facility]. Per Lilly, they had O2 orders for 3l/m @ rest and 5l/m w/exertion in Dec, 2020, but states pt has transferred O2 to [facility]. TC to [facility] [employer] [facility]. Pt was receiving O2 thru them, but pt has just recently transferred O2 to [facility] [place]. [facility] states their orders for O2 were 4l/m continuous. Call placed to [facility] [place]. Per Ailyn @ [facility], pt did sign to have O2 transferred to them in January, but they have not received updated physician order for O2 and therefore have not supplied any oxygen supplies to pt. QUIN ROLLINS placed call to pt's sister, Suzette. She states they were informed by [facility] that pt would need to be seen by PCP for new O2 script before being able to provide O2 to pt. She states they decided to keep O2 through [facility] for now, as they did not want to take pt out to PCP office just to switch DME companies. She states would still prefer to switch O2 to [facility] @ discharge, if visit from @ [facility] and order from hospital was sufficient for O2 @ home. QUIN ROLLINS informed her this would be sufficient. Initially, pt had informed this QUIN ROLLINS that he wanted to keep O2 through [facility], but [facility] when [facility] was notified of above. If pt able to return home, pt will need home O2 ambulatory testing completed, prior to discharge, and faxed to [facility]. Sister states she can bring in portable O2 tank that pt still has from previous co (she is not sure if it is still from [employer] or from [facility]) for pt to go home on. She states once Susannah gets home O2 set up, she will contact correct DME co that pt has current O2 supply from so they can return it. Sister states she helps to look after pt and he has not been motivated to do much on his own at his house recently. She states she has talked w/pt, has been encouraging increased activity, and has informed him that he may need to go back to a SNF if he is not able to care for himself @ home. PT/OT to continue to work w/pt. D/C plan TBD depending on treatment and pt progress w/therapy. Yasmany KRISHNAMURTHYN RN CM
--- NOTE | 2021-03-18 16:51 | CASEMGMT ---
Social Work Note SW reviewed chart. Pt has CM Avis Adams through [facility], ), ). SW placed a call to Avis and left message updating her on pt's admission to [facility]. SW to continue to follow. Zainab Green UNDERCOAT SPRAYER, GROUP HOME SUPERVISOR
[2021-03-18] MEDS: 0.9% Saline Lock 10 ML Syringe IV ×2 (17:38→20:32)
[2021-03-18] MEDS: Ondansetron 4 MG/2 ML Vial IV (20:25)
[2021-03-18] MEDS: Escitalopram Oxalate 10 MG Tablet PO (20:31)
[2021-03-19] VITALS (23 sets, daily range): BP systolic 115–150; BP diastolic 66–108; PULSE 82–140; RESP 12–29; TEMP 36.5–37.2; O2SAT 90–98
[2021-03-19] MEDS: proCHLORPERazine 10 MG/2 ML Vial 5 MG IV (03:30)
[2021-03-19] MEDS: Albuterol 2.5 MG/3 ML VIAL.NEB. INHALATION (04:29)
[2021-03-19] MEDS: Phenytoin Na 100 MG Capsule PO ×3 (06:13→20:31)
[2021-03-19 06:24] LABS: Absolute Lymphocyte Count 1.06 X10^3/uL (0.83-4.51); Absolute Neutrophil Count 5.7 X10^3/uL (2.0-7.7); Basophil# 0.02 X10^3/uL; Basophil% 0.3 % (0-1); Eosinophil# 0.21 X10^3/uL; Eosinophils% 2.7 % (0-5); Hematocrit 39.7 % (40-54); Hemoglobin 12.2 g/dL (13.0-16.5); Lymphocyte # 1.06 X10^3/ul (0.83-4.51); Lymphocyte % 13.8 % (19-41); Mean Corp Hgb Conc 30.7 g/dL (32-36); Mean Corpuscular Hgb 31.7 pg (27.0-32.0); Mean Corpuscular Volume 103.1 fL (80-94); Mean Platelet Vol. 12.4 fl (6.2-12.0); Monocyte# 0.59 X10^3/uL; Monocyte% 7.7 % (0-10); NRBC Flagged by Analyzer 0 % (0-5); Neutrophil # 5.66 X10^3/uL (2.7-7.7); Neutrophil % 73.9 % (47-70); Platelet Count 170 K/mm3 (150-450); RBC Distribution Width CV 13.5 % (11.6-14.6); RBC Distribution Width SD 51.8 fl (35.1-43.9); Red Blood Count 3.85 M/mm3 (4.6-6.2); White Blood Count 7.7 K/mm3 (4.4-11.0)
[2021-03-19 06:33] LABS: International Normalized Ratio 1.8; Prothrombin Time (Protime)PT. 20.4 SECONDS (11.7-14.9)
[2021-03-19 06:40] LABS: Anion Gap 5 (5-15); BUN 30 mg/dL (7-18); BUN/Creat Ratio 32.7 RATIO (10-20); Chloride 102 mmol/L (98-107); Creatinine, Serum 0.92 mg/dL (0.70-1.30); EST Glomerular Filtration Rate 91 mL/min (>60); Est Glom Filt Rate - Afr Amer 110 mL/min (>60); Estimated Creatinine Clearance 89.66 ml/min; Glucose 130 mg/dL (74-106); Potassium 3.8 mmol/L (3.5-5.1); Sodium Level 142 mmol/L (136-145)
[2021-03-19] MEDS: Pantoprazole Sodium 40 MG Tablet PO (08:16)
[2021-03-19] MEDS: Multivitamins,Therapeutic Tablet 1 TABLET PO (08:16)
[2021-03-19] MEDS: Furosemide 20 MG Tablet PO (08:16)
[2021-03-19] MEDS: Furosemide 40 MG/4 ML Vial IV (08:16)
[2021-03-19] MEDS: Metoprolol Tartrate 25 MG Tablet 37.5 MG PO ×2 (08:17→17:11)
[2021-03-19] MEDS: buPROPion (SR) 150 MG Tablet.SA PO ×2 (08:17)
[2021-03-19] MEDS: Potassium Chloride Oral Tablet 20 MEQ 40 MEQ PO (08:17)
[2021-03-19] MEDS: Aspirin E.C. 81 MG Tablet PO (08:17)
[2021-03-19] MEDS: dexAMETHasone 4 MG/ML Vial 6 MG IV (08:18)
[2021-03-19] MEDS: 0.9% Saline Lock 10 ML Syringe IV ×3 (08:18→21:57)
[2021-03-19] MEDS: Vitamin B Comp W-C Capsule 1 CAP PO (08:18)
[2021-03-19] MEDS: Ferrous Sulfate 325 MG Tablet PO ×2 (08:24→20:31)
--- NOTE | 2021-03-19 09:56 | CASEMGMT ---
TC from Shabbir at [facility], she states pt is not doing well at home. She states he sits in the chair and soils himself. States pt lacks motivation. She states pt did better prior when he was in a SNF and received therapy. QUNI ROLLINS to cont to follow.
[2021-03-19] MEDS: Ipratropium/Albuterol Sulfate 3 ML AMPUL.NEB INHALATION ×2 (10:41→20:05)
--- NOTE | 2021-03-19 12:39 | PN.CC_ITS ---
Assessment & Plan Assessment/Plan (1) Acute and chronic respiratory failure with hypoxia: (2) COVID-19 virus infection: PLAN: RECOMMENDATIONS: 1. Wean supplemental oxygen to maintain saturations at or above 90%. 2. Continue remdesivir (03/19/2021) and Decadron (03/25/2021) as ordered. 3. Continue Coumadin per home regimen. Check INR daily. Monitor for GI bleed 4. Encourage incentive spirometer use and mobilize patient as tolerated. 5. Continue BiPAP support with naps and nightly. IMPRESSIONS: 1. Acute on chronic hypoxemic respiratory failure secondary to COVID-19 pneumonia The patient has known end-stage COPD and is currently on a triple therapy inhaler regimen along with a baseline oxygen requirement of 3 to 5 L/min. He presented with worsening dyspnea and hypoxemia. The patient is vaccinated but not yet boosted. Plan to continue supplemental oxygen via nasal cannula throughout the day with BiPAP support at night as tolerated. Continue supportive measures including remdesivir, Decadron and bronchodilators. Continue Coumadin per outpatient regimen and check INR daily. Agree with dosage of Lasix. Will add potassium supplementation. 2. Valvular heart disease/hypertension/hyperlipidemia/anemia/seizure disorder/prior tobacco dependency/depression Complicates care, management, recovery and prognosis. Continue home medications as indicated. Patient is fully anticoagulated and reporting nausea. This may be secondary to potassium, but GI bleed will also have to be watched closely. This note was generated with [employer] dictation software. It may contain incorrect words, spelling, and punctuation that were not noted in checking the note before signing. Subjective Subjective Patient did okay overnight from a hemodynamic standpoint. However, patient has reported some nausea with one emesis. Patient denies any chest pain. No hemoptysis, coffee-ground emesis or melena was reported. Objective Data Objective Data Vital Signs: Vital Signs Temp Pulse Resp BP Pulse Ox 36.5 C L 105 H 20 H 124/87 H 94 03/19/21 08:07 03/19/21 10:43 03/19/21 10:43 03/19/21 08:07 03/19/21 11:09 Oxygen Flow Rate (L/min) 10 Oxygen Delivery Method Room Air Weight: 84.005 kg Body Mass Index (BMI) 27.1 Intake & Output: Intake and Output for Last 24 Hours 03/17/21 03/18/21 03/19/21 23:59 23:59 23:59 Intake Total 1150 / 1150 1999 / 1999 Output Total 650 / 650 1410 / 1660 450 / 450 Balance 500 / 500 590 / 340 -450 / -450 Lab / Micro Data Result Diagrams: 03/19/21 05:21 03/19/21 05:21 Labs: Laboratory Results - last 24 hr 03/19/21 05:21: WBC 7.7, RBC 3.85 L, Hgb 12.2 L, Hct 39.7 L, MCV 103.1 H, MCH 31.7, MCHC 30.7 L, RDW Std Deviation 51.8 H, RDW Coeff of Joseluis 13.5, Plt Count 170, MPV 12.4 H, Immature Gran % (Auto) 1.600 H, Neut % (Auto) 73.9 H, Lymph % (Auto) 13.8 L, [place] % (Auto) 7.7, Eos % (Auto) 2.7, Baso % (Auto) 0.3, Absolute Neuts (auto) 5.7, Absolute Lymphs (auto) 1.06, Nucleated RBC % 0 03/19/21 05:21: PT 20.4 H, INR 1.8 03/19/21 05:21: Sodium 142, Potassium 3.8, Chloride 102, Carbon Dioxide 35.0 H, Anion Gap 5, BUN 30 H, Creatinine 0.92, Estim Creat Clear Calc 89.66, Est GFR (MDRD) Af Amer 110, Est GFR (MDRD) Non-Af 91, BUN/Creatinine Ratio 32.7 H, Glucose 130 H, Calcium 8.0 L Micro: Microbiology 03/15/21 18:53 Blood Culture (Wb) #2 - Anticubital Left Blood Culture - Preliminary No growth in 48 hours. 03/15/21 19:05 Blood Culture (Wb) - Left Wrist Bacteria Detection (PCR) - Final Coag Negative Staph 03/15/21 19:05 Blood Culture (Wb) - Left Wrist Blood Culture - Preliminary Coag Negative Staph 03/15/21 23:10 Urine, Random Legionella Antigen - Final 03/15/21 23:10 Urine, Random Streptococcus pneumoniae Antigen (M - Final 03/15/21 18:50 Nasal Secretion SARS-CoV-2 Antigen (Rapid) - Final SARS-CoV-2 (COVID 19) Rhythm Strip Rhythm Strip: Sinus Tach Rate: 118 Ectopy: None Physical Exam Const alert and no apparent distress General Appearance: cooperative HEENT normocephalic, head/scalp atraumatic and moist oral mucous membranes Eyes EOMs intact bilaterally and conjunctivae normal Neck supple General: trachea midline Chest inspection of chest normal Chest: symmetrical chest wall rise; Negative for crepitus Resp normal respiratory effort Auscultation: diminished lung sounds; Negative for rales, rhonchi or wheezes Cardio regular rate, regular rhythm, no murmurs, no rub and no gallops Cardio Narrative: Mechanical heart sounds GI normal to inspection, nondistended, normoactive bowel sounds Extremity no clubbing, cyanosis or edema Skin no rashes or lesions noted Neuro CN's II-XII intact bilaterally and no focal motor deficits Psych Mood & Affect: flat affect Charges/Coding Visit Charges Inpatient E&M: 14577 Subs Hosp L2
--- NOTE | 2021-03-19 13:36 | PN.HOSP_ITS ---
Subjective Subjective He has had some worsening oxygen requirements overnight. We will trial him on a dose of IV Lasix this morning. We will continue to encourage compliance with BiPAP when sleeping as well as pulmonary toileting including incentive spirometry, Pep, proning Objective Data Objective Data Vital Signs: Vital Signs Temp Pulse Resp BP Pulse Ox 97.7 F L 105 H 20 H 124/87 H 94 03/19/21 08:07 03/19/21 10:43 03/19/21 10:43 03/19/21 08:07 03/19/21 11:09 Oxygen Flow Rate (L/min) 10 Oxygen Delivery Method Room Air Weight: 185 lb 3.2 oz Body Mass Index (BMI) 27.1 Intake & Output: Intake and Output for Last 24 Hours 03/18/21 03/19/21 03/20/21 03:59 03:59 03:59 Intake Total 1150 / 1150 1750 / 1750 Output Total 650 / 650 1660 / 1660 200 / 200 Balance 500 / 500 90 / 90 -200 / -200 Lab / Micro Data Result Diagrams: 03/19/21 05:21 03/19/21 05:21 Labs: Laboratory Results - last 24 hr 03/19/21 05:21: WBC 7.7, RBC 3.85 L, Hgb 12.2 L, Hct 39.7 L, MCV 103.1 H, MCH 31.7, MCHC 30.7 L, RDW Std Deviation 51.8 H, RDW Coeff of Joseluis 13.5, Plt Count 170, MPV 12.4 H, Immature Gran % (Auto) 1.600 H, Neut % (Auto) 73.9 H, Lymph % (Auto) 13.8 L, [place] % (Auto) 7.7, Eos % (Auto) 2.7, Baso % (Auto) 0.3, Absolute Neuts (auto) 5.7, Absolute Lymphs (auto) 1.06, Nucleated RBC % 0 03/19/21 05:21: PT 20.4 H, INR 1.8 03/19/21 05:21: Sodium 142, Potassium 3.8, Chloride 102, Carbon Dioxide 35.0 H, Anion Gap 5, BUN 30 H, Creatinine 0.92, Estim Creat Clear Calc 89.66, Est GFR (MDRD) Af Amer 110, Est GFR (MDRD) Non-Af 91, BUN/Creatinine Ratio 32.7 H, Glucose 130 H, Calcium 8.0 L Micro: Microbiology 03/15/21 18:53 Blood Culture (Wb) #2 - Anticubital Left Blood Culture - Preliminary No growth in 48 hours. 03/15/21 19:05 Blood Culture (Wb) - Left Wrist Bacteria Detection (PCR) - Final Coag Negative Staph 03/15/21 19:05 Blood Culture (Wb) - Left Wrist Blood Culture - Preliminary Coag Negative Staph 03/15/21 23:10 Urine, Random Legionella Antigen - Final 03/15/21 23:10 Urine, Random Streptococcus pneumoniae Antigen (M - Final 03/15/21 18:50 Nasal Secretion SARS-CoV-2 Antigen (Rapid) - Final SARS-CoV-2 (COVID 19) Rhythm Strip Rhythm Strip: Sinus Tach Rate: 118 Ectopy: None Physical Exam Narrative Const alert, oriented x3 and no apparent distress General Appearance: cooperative HEENT normocephalic and moist oral mucous membranes Eyes PERRL, EOMs intact bilaterally and conjunctivae normal Neck supple and no JVD Resp normal respiratory effort, no retractions and no use of accessory muscles Auscultation: diminished lung sounds; Negative for crackles, rales, rhonchi or wheezes Cardio regular rate, regular rhythm, S1 normal heart sound, S2 normal heart sound and no murmurs GI soft to palpation, non-tender and non-distended; Negative for hepatosplenomegaly Extremity no clubbing, cyanosis or edema Skin no rashes or lesions noted Neuro no focal motor deficits and no sensory deficits noted Psych affect normal Appearance: appropriate Assessment & Plan Assessment/Plan (1) Acute and chronic respiratory failure with hypoxia: (2) COVID-19 virus infection: PLAN: #Acute on chronic hypoxic respiratory faillure due to covid pneumonia * titrate oxygen to maintain sats >90% * on 9-10 L of oxygen today. * on decadron and remdesivir * urine for strep and legionella negative. * breathing treatment with bronchodilators * Pulmonology on board * We will trial him on diuresis today to see if this helps with his oxygen status. Unlikely to have a PE as he has been therapeutic on his INR's while he has been here. Current INR is 1.8 * Continue to encourage pulmonary toileting if he has worsening his oxygen status and proceed with Airvo then will consult infectious disease for baricitinib #Hypertension: On metoprolol. IV hydralazine as needed #Valvular heart disease: Has a mechanical aortic valve prosthesis. On Coumadin. INR is therapeutic. #Hyperlipidemia: Not on any medication. Follow-up with PCP on outpatient basis. #Seizure disorder: On phenytoin #Depression: On BuSpar and escitalopram DVT: On Coumadin Charges/Coding Visit Charges Inpatient E&M: 46838 Subs Hosp L2
--- NOTE | 2021-03-19 16:58 | EKG12_ITS ---
Test Reason : TACHY Blood Pressure : / mmHG Vent. Rate : 133 BPM Atrial Rate : 133 BPM P-R Int : 112 ms QRS Dur : 140 ms QT Int : 362 ms P-R-T Axes : 000 -75 083 degrees QTc Int : 538 ms Sinus tachycardia Right bundle branch block Left anterior fascicular block Bifascicular block Abnormal ECG Confirmed by MANJU HEARD, ANASTASIYA ([id number]), editorial cartoonist JAIDEN KANG ([id number]) on 03/20/2021 1:33:48 PM Referred By: KIM Confirmed By:ANASTASIYA NUNES MD
[2021-03-19] MEDS: LORazepam 2 MG/ML Syringe 0.5 MG IV ×2 (17:19→21:55)
--- NOTE | 2021-03-19 17:20 | NURSING ---
Pt was assisted from the chair to the BSC to have a bowel movement. His oxygen levels dropping on 10 L nc. He was placed on the Bipap and noted heart rate increased. Pt does have anxiety with bipap face mask. Staff reassuring him and he is assisted to bed. Continue to have tachycardia HR 137 not recovering with oxygen at 98% on bipap. Dr. Ramirez updated order for stat EKG results send to Dr. Ramirez he is present at Pt bedside assessing him. Pt remains tachycardic order go give hs dose of metoprolol now , abgs and x 1 dose of ativan. Medication is given and pt is resting in bed. Gripping on side rails and resting. Nurse continue to monitor,
--- NOTE | 2021-03-19 17:28 | CPS ---
DR JUNIOR NOTIFIED OF CRITICAL VALUES ON ABG
[2021-03-19 17:35] LABS: Allen Test Positive; Base Excess 13 mmol/L (-2 to +2); Blood Gas Specimen Type ART; FI02 45; Mode BiLevel; O2 Delivery Device BiPAP; PEEP 8; PO2 84 mmHG (75-100); RR 12; SITE L Radial; SO2 95 % (95-99); Total Carbon Dioxide 41 mmol/L; pCO2 77.3 mmHg (35-45); pH 7.31 (7.35-7.45)
[2021-03-19] MEDS: Escitalopram Oxalate 10 MG Tablet PO (20:31)
[2021-03-19] MEDS: MELATONIN 10 MG TABLET 5 MG PO (20:31)
[2021-03-19 20:55] LABS: Base Excess 12 mmol/L (-2 to +2); Bicarbonate 38.1 mmol/L (22-26); Blood Gas Specimen Type ART; FI02 45; O2 Delivery Device BiPAP; PO2 75 mmHG (75-100); RR 12; SITE R Brach; SO2 93 % (95-99); Total Carbon Dioxide 40 mmol/L; pCO2 73.9 mmHg (35-45); pH 7.32 (7.35-7.45)
--- NOTE | 2021-03-19 21:41 | CPS ---
changed setting to [address] kuo after abg results
[2021-03-20] VITALS (26 sets, daily range): BP systolic 100–127; BP diastolic 62–100; PULSE 85–142; RESP 12–30; TEMP 36.4–37.1; O2SAT 92–968
[2021-03-20] MEDS: LORazepam 2 MG/ML Syringe 1 MG IV (01:21)
[2021-03-20] MEDS: 0.9% Saline Lock 10 ML Syringe IV ×6 (01:25→21:16)
[2021-03-20] MEDS: hydrOXYzine 10 MG Tablet PO (02:44)
--- NOTE | 2021-03-20 04:41 | PN_ITS ---
Progress Note Nurse reported that a telemetry strip was alarming atrial fibrillation. Twelve- lead EKG read by machine as atrial fibrillation. Upon critical review this is likely multifocal tachycardia. Metoprolol IV push x1 initially ordered but discontinued. We will replace potassium. Will check magnesium.
--- NOTE | 2021-03-20 04:56 | EKG12_ITS ---
Test Reason : REPEAT RYTHUM CHANGE Blood Pressure : / mmHG Vent. Rate : 104 BPM Atrial Rate : 104 BPM P-R Int : 158 ms QRS Dur : 152 ms QT Int : 390 ms P-R-T Axes : 000 -75 077 degrees QTc Int : 512 ms Sinus tachycardia Right bundle branch block Left anterior fascicular block Bifascicular block Abnormal ECG Confirmed by MANJU HEARD, ANASTASIYA ([id number]), electronic news gathering editor JAIDEN KANG ([id number]) on 03/20/2021 1:30:49 PM Referred By: DR AGUILAR Confirmed By:ANASTASIYA NUNES MD
[2021-03-20] MEDS: Potassium Chloride 10mEq/100mL 10 MEQ/100 ML IV.SOLN. 100 MEQ IV BOLUS ×2 (05:19→06:32)
[2021-03-20] MEDS: Phenytoin Na 100 MG Capsule PO ×3 (05:28→21:20)
[2021-03-20 05:38] LABS: Absolute Lymphocyte Count 0.82 X10^3/uL (0.83-4.51); Absolute Neutrophil Count 7.8 X10^3/uL (2.0-7.7); Basophil# 0.03 X10^3/uL; Basophil% 0.3 % (0-1); Eosinophil# 0.08 X10^3/uL; Eosinophils% 0.8 % (0-5); Hematocrit 42.6 % (40-54); Hemoglobin 12.6 g/dL (13.0-16.5); Lymphocyte # 0.82 X10^3/ul (0.83-4.51); Lymphocyte % 8.2 % (19-41); Mean Corp Hgb Conc 29.6 g/dL (32-36); Mean Corpuscular Hgb 31.1 pg (27.0-32.0); Mean Corpuscular Volume 105.2 fL (80-94); Monocyte# 1.11 X10^3/uL; Monocyte% 11.1 % (0-10); NRBC Flagged by Analyzer 0 % (0-5); Neutrophil # 7.82 X10^3/uL (2.7-7.7); Neutrophil % 78.1 % (47-70); Platelet Count 185 K/mm3 (150-450); RBC Distribution Width CV 13.6 % (11.6-14.6); RBC Distribution Width SD 52.8 fl (35.1-43.9); Red Blood Count 4.05 M/mm3 (4.6-6.2)
[2021-03-20 05:45] LABS: International Normalized Ratio 2.2
[2021-03-20 06:06] LABS: ALB/GLOB Ratio 0.7 RATIO (0.9-2.4); AST(SGOT) 98 U/L (15-37); Alanine Aminotransfer ALT/SGPT 194 U/L (16-61); Albumin, Serum 2.9 g/dL (3.2-5.0); Alkaline Phosphatase 237 U/L (45-117); Anion Gap 3 (5-15); BUN 37 mg/dL (7-18); BUN/Creat Ratio 31.9 RATIO (10-20); Calcium,Total 8.3 mg/dL (8.5-10.1); Chloride 102 mmol/L (98-107); Creatinine, Serum 1.16 mg/dL (0.70-1.30); EST Glomerular Filtration Rate 69 mL/min (>60); Est Glom Filt Rate - Afr Amer 84 mL/min (>60); Estimated Creatinine Clearance 71.11 ml/min; Globulin 3.9 g/dL (2.2-4.2); Glucose 130 mg/dL (74-106); Potassium 4.1 mmol/L (3.5-5.1); Protein, Total 6.8 g/dL (6.4-8.2); Sodium Level 139 mmol/L (136-145)
[2021-03-20] MEDS: LORazepam 2 MG/ML Syringe 0.5 MG IV ×3 (06:32→21:16)
--- NOTE | 2021-03-20 06:35 | EKG12_ITS ---
Test Reason : HIGH HR Blood Pressure : / mmHG Vent. Rate : 110 BPM Atrial Rate : 113 BPM P-R Int : 000 ms QRS Dur : 158 ms QT Int : 392 ms P-R-T Axes : 000 -75 069 degrees QTc Int : 530 ms Atrial fibrillation Right bundle branch block Left anterior fascicular block Bifascicular block Abnormal ECG Confirmed by MANJU HEARD, ANASTASIYA ([id number]), general expeditor JAIDEN KANG ([id number]) on 03/20/2021 1:31:05 PM Referred By: KIM Confirmed By:ANASTASIYA NUNES MD
--- NOTE | 2021-03-20 06:35 | RAD_ITS ---
HISTORY: Elevated heart rate EXAMINATION/TECHNIQUE: XR Chest 1 View: COMPARISON: 03/15/2021, October 26, 2020, December 13, 2019 FINDINGS: LINES/DEVICES: None. LUNGS: Lordotic positioning. Hyperexpanded lungs. No airspace consolidation. Diffuse coarse interstitial. No florid interstitial edema. No effusion. No pneumothorax. MEDIASTINUM: No cardiomegaly. MUSCULOSKELETAL: No acute osseous finding. Sternotomy wires are intact. Patient rotated leftward. RAD/Chest 1 View (Portable) IMPRESSION: Hyperexpanded lungs and coarse interstitium compatible with chronic obstructive pulmonary disease. Sternotomy changes with rotated patient and lordotic positioning. at 0822 Reported and signed by: Terry Flores MD Electronically Signed: Terry Flores MD at 8:20 EST Tel , Service support ,
[2021-03-20] MEDS: Metoprolol Tartrate 5 MG/5 ML Vial IV (06:40)
[2021-03-20] MEDS: Ipratropium/Albuterol Sulfate 3 ML AMPUL.NEB INHALATION ×3 (07:33→19:25)
[2021-03-20] MEDS: Budesonide Respules 0.5 MG/2 ML AMPUL.NEB. INHALATION ×2 (07:33→19:25)
[2021-03-20 07:54] LABS: Magnesium 1.6 mg/dL (1.6-2.6); Thyroid Stim Hormone (TSH) 1.11 uIU/mL (0.358-3.74)
[2021-03-20] MEDS: Ferrous Sulfate 325 MG Tablet PO ×2 (08:57→21:20)
[2021-03-20] MEDS: dexAMETHasone 4 MG/ML Vial 6 MG IV (08:57)
[2021-03-20] MEDS: Vitamin B Comp W-C Capsule 1 CAP PO (08:58)
[2021-03-20] MEDS: Multivitamins,Therapeutic Tablet 1 TABLET PO (08:58)
[2021-03-20] MEDS: Pantoprazole Sodium 40 MG Tablet PO (08:58)
[2021-03-20] MEDS: buPROPion (SR) 150 MG Tablet.SA PO (08:58)
[2021-03-20] MEDS: Aspirin E.C. 81 MG Tablet PO (08:58)
--- NOTE | 2021-03-20 09:39 | PN.HOSP_ITS ---
Subjective Subjective Yesterday evening he had worsening hypoxia with increased oxygen requirements. He was placed on BiPAP and this set off an anxiety reaction leading to significant tachycardia. He was continued on his home metoprolol. He was started on Ativan which has significantly helped and this morning he feels much better than he did yesterday however he still on BiPAP. ABG demonstrated a CO2 of 73 last night Objective Data Objective Data Vital Signs: Vital Signs Temp Pulse Resp BP Pulse Ox 97.6 F L 105 H 24 H 108/67 93 03/20/21 08:52 03/20/21 09:17 03/20/21 09:17 03/20/21 09:17 03/20/21 09:17 Oxygen Flow Rate (L/min) 10 Oxygen Delivery Method High Flow Weight: 186 lb 4.8 oz Body Mass Index (BMI) 27.1 Intake & Output: Intake and Output for Last 24 Hours 03/19/21 03/20/21 03/21/21 03:59 03:59 03:59 Intake Total 1750 / 1750 1450 / 1450 200 / 200 Output Total 1660 / 1660 1200 / 1200 Balance 90 / 90 250 / 250 200 / 200 Lab / Micro Data Result Diagrams: 03/20/21 05:23 03/20/21 05:23 Labs: Laboratory Results - last 24 hr 03/20/21 05:23: PT 24.0 H, INR 2.2 03/20/21 05:23: WBC 10.0, RBC 4.05 L, Hgb 12.6 L, Hct 42.6, MCV 105.2 H, MCH 31.1, MCHC 29.6 L, RDW Std Deviation 52.8 H, RDW Coeff of Joseluis 13.6, Plt Count 185, MPV 12.0, Immature Gran % (Auto) 1.500 H, Neut % (Auto) 78.1 H, Lymph % (Auto) 8.2 L, [place] % (Auto) 11.1 H, Eos % (Auto) 0.8, Baso % (Auto) 0.3, Absolute Neuts (auto) 7.8 H, Absolute Lymphs (auto) 0.82 L, Nucleated RBC % 0 03/20/21 05:23: Sodium 139, Potassium 4.1, Chloride 102, Carbon Dioxide 34.0 H, Anion Gap 3 L, BUN 37 H, Creatinine 1.16, Estim Creat Clear Calc 71.11, Est GFR (MDRD) Af Amer 84, Est GFR (MDRD) Non-Af 69, BUN/Creatinine Ratio 31.9 H, Glucose 130 H, Calcium 8.3 L, Total Bilirubin 0.40, AST 98 H, ALT 194 H, Alkaline Phosphatase 237 H, Total Protein 6.8, Albumin 2.9 L, Globulin 3.9, Albumin/Globulin Ratio 0.7 L 03/20/21 05:23: Magnesium 1.6, TSH 1.11 Micro: Microbiology 03/15/21 18:53 Blood Culture (Wb) #2 - Anticubital Left Blood Culture - Preliminary No growth in 48 hours. 03/15/21 19:05 Blood Culture (Wb) - Left Wrist Bacteria Detection (PCR) - Final Coag Negative Staph 03/15/21 19:05 Blood Culture (Wb) - Left Wrist Blood Culture - Preliminary Coag Negative Staph 03/15/21 23:10 Urine, Random Legionella Antigen - Final 03/15/21 23:10 Urine, Random Streptococcus pneumoniae Antigen (M - Final 03/15/21 18:50 Nasal Secretion SARS-CoV-2 Antigen (Rapid) - Final SARS-CoV-2 (COVID 19) ABG Data ABG results: ABG 03/19/21 03/19/21 17:28 20:49 Specimen Type ART ART Sample Site L Radial R Brach pH 7.31 L 7.32 L Bicarbonate Actual 39.0 H 38.1 H Total CO2 41 40 Base Excess 13 H 12 H O2 Saturation 95 93 L O2 % 45 45 ABG pCO2 77.3 H* 73.9 H* ABG pO2 84 75 Kurt Test Positive Respiration Rate 12 12 O2 Delivery Device BiPAP BiPAP Vent Mode BiLevel POC PEEP 8 Crit Call To/Read Back Yes Yes Blood Gas Notified Whom Agyepong Clinical Comments 13/10 12 45 14. 8. 45% Radiography Diagnostic Testing: Radiology Impression Chest X-Ray 03/20/21 06:35 IMPRESSION: Hyperexpanded lungs and coarse interstitium compatible with chronic obstructive pulmonary disease. Sternotomy changes with rotated patient and lordotic positioning. at 0822 Reported and signed by: Terry Flores MD Electronically Signed: Terry Flores MD at 8:20 EST Tel , Service support , Rhythm Strip Rhythm Strip: Sinus Tach Rate: 118 Ectopy: None Physical Exam Narrative Const alert, oriented x3 and no apparent distress General Appearance: cooperative HEENT normocephalic and moist oral mucous membranes Eyes PERRL, EOMs intact bilaterally and conjunctivae normal Neck supple and no JVD Resp normal respiratory effort, no retractions and no use of accessory muscles Auscultation: diminished lung sounds; Negative for crackles, rales, rhonchi or wheezes Cardio regular rate, regular rhythm, S1 normal heart sound, S2 normal heart sound and no murmurs GI soft to palpation, non-tender and non-distended; Negative for hepatosplenomegaly Extremity no clubbing, cyanosis or edema Skin no rashes or lesions noted Neuro no focal motor deficits and no sensory deficits noted Psych affect normal Appearance: appropriate Assessment & Plan Assessment/Plan (1) Acute and chronic respiratory failure with hypoxia: (2) COVID-19 virus infection: PLAN: #Acute on chronic hypoxic respiratory faillure due to covid pneumonia * titrate oxygen to maintain sats >90% * on 9-10 L of oxygen today. * on decadron and remdesivir * urine for strep and legionella negative. * breathing treatment with bronchodilators * Pulmonology on board * INR is now 2.2, will continue to monitor, PE is unlikely in the setting of having had therapeutic anticoagulation since he has been here * Had to transition to chronic BiPAP use here therefore we will consult infectious disease for baricitinib #Hypertension: On metoprolol. IV hydralazine as needed #Valvular heart disease: Has a mechanical aortic valve prosthesis. On Coumadin. INR is therapeutic. #Hyperlipidemia: Not on any medication. Follow-up with PCP on outpatient basis. #Seizure disorder: On phenytoin #Depression: On BuSpar and escitalopram DVT: On Coumadin Charges/Coding Visit Charges Inpatient E&M: 92748 Subs Hosp L2
--- NOTE | 2021-03-20 10:44 | PN.CC_ITS ---
Assessment & Plan Assessment/Plan (1) Acute and chronic respiratory failure with hypoxia: (2) COVID-19 virus infection: PLAN: RECOMMENDATIONS: 1. Wean supplemental oxygen to maintain saturations at or above 90%. 2. Completed Remdesivir. Continue Decadron (03/25/2021) as ordered. Check CRP for possible baricitinib 3. Continue Coumadin per home regimen. Check INR daily. Monitor for GI bleed 4. Encourage incentive spirometer use and mobilize patient as tolerated. 5. Continue BiPAP support with naps and nightly. IMPRESSIONS: 1. Acute on chronic hypoxemic respiratory failure secondary to COVID-19 pneumonia The patient has known end-stage COPD and is currently on a triple therapy inhaler regimen along with a baseline oxygen requirement of 3 to 5 L/min. He presented with worsening dyspnea and hypoxemia. The patient is vaccinated but not yet boosted. Plan to continue supplemental oxygen via nasal cannula throug hout the day with BiPAP support at night as tolerated. Continue supportive measures including Decadron and bronchodilators. Given worsening, could consider getting a CRP for possible baricitinib. Continue Coumadin per outpatient regimen and check INR daily. Chest x-ray appears to be relatively un changed compared to previous. Tachypnea will exacerbate underlying lung pathology that may lead to worsening oxygenation. Can check CRP, procalcitonin and sputum culture to evaluate for secondary infection. We will hold on antibiotics for now given interaction with warfarin and improvement this m orning. 2. Valvular heart disease/hypertension/hyperlipidemia/anemia/seizure disord er/prior tobacco dependency/depression Complicates care, management, recovery and prognosis. Continue home medications as indicated. Patient is fully anticoagulated and reporting nausea. This may be secondary to potassium, but GI bleed will also have to be watched closely. This note was generated with [employer] dictation software. It may contain incorrect words, spelling, and punctuation that were not noted in checking the note before signing. Subjective Subjective Patient was significant issues overnight related to anxiety with tachypnea requiring BiPAP rescue. Patient states this morning that he felt relatively well and was able to be moved to nasal cannula. Patient states that he has not had any epistaxis and feels his nausea is slightly improved compared to yesterday. Objective Data Objective Data Vital Signs: Vital Signs Temp Pulse Resp BP Pulse Ox 36.4 C L 105 H 24 H 108/67 93 03/20/21 08:52 03/20/21 09:17 03/20/21 09:17 03/20/21 09:17 03/20/21 09:17 Oxygen Flow Rate (L/min) 10 Oxygen Delivery Method High Flow Weight: 84.504 kg Body Mass Index (BMI) 27.1 Intake & Output: Intake and Output for Last 24 Hours 03/18/21 03/19/21 03/20/21 23:59 23:59 23:59 Intake Total 1999 / 1999 1450 / 1450 200 / 200 Output Total 1410 / 1660 1450 / 1450 Balance 590 / 340 0 / 0 200 / 200 Lab / Micro Data Result Diagrams: 03/20/21 05:23 03/20/21 05:23 Labs: Laboratory Results - last 24 hr 03/20/21 05:23: PT 24.0 H, INR 2.2 03/20/21 05:23: WBC 10.0, RBC 4.05 L, Hgb 12.6 L, Hct 42.6, MCV 105.2 H, MCH 31.1, MCHC 29.6 L, RDW Std Deviation 52.8 H, RDW Coeff of Joseluis 13.6, Plt Count 185, MPV 12.0, Immature Gran % (Auto) 1.500 H, Neut % (Auto) 78.1 H, Lymph % (Auto) 8.2 L, [place] % (Auto) 11.1 H, Eos % (Auto) 0.8, Baso % (Auto) 0.3, Absolute Neuts (auto) 7.8 H, Absolute Lymphs (auto) 0.82 L, Nucleated RBC % 0 03/20/21 05:23: Sodium 139, Potassium 4.1, Chloride 102, Carbon Dioxide 34.0 H, Anion Gap 3 L, BUN 37 H, Creatinine 1.16, Estim Creat Clear Calc 71.11, Est GFR (MDRD) Af Amer 84, Est GFR (MDRD) Non-Af 69, BUN/Creatinine Ratio 31.9 H, Glucose 130 H, Calcium 8.3 L, Total Bilirubin 0.40, AST 98 H, ALT 194 H, Alkaline Phosphatase 237 H, Total Protein 6.8, Albumin 2.9 L, Globulin 3.9, Albumin/Globulin Ratio 0.7 L 03/20/21 05:23: Magnesium 1.6, TSH 1.11 Micro: Microbiology 03/15/21 18:53 Blood Culture (Wb) #2 - Anticubital Left Blood Culture - Preliminary No growth in 48 hours. 03/15/21 19:05 Blood Culture (Wb) - Left Wrist Bacteria Detection (PCR) - Final Coag Negative Staph 03/15/21 19:05 Blood Culture (Wb) - Left Wrist Blood Culture - Preliminary Coag Negative Staph 03/15/21 23:10 Urine, Random Legionella Antigen - Final 03/15/21 23:10 Urine, Random Streptococcus pneumoniae Antigen (M - Final 03/15/21 18:50 Nasal Secretion SARS-CoV-2 Antigen (Rapid) - Final SARS-CoV-2 (COVID 19) ABG Data ABG results: ABG 03/19/21 03/19/21 17:28 20:49 Specimen Type ART ART Sample Site L Radial R Brach pH 7.31 L 7.32 L Bicarbonate Actual 39.0 H 38.1 H Total CO2 41 40 Base Excess 13 H 12 H O2 Saturation 95 93 L O2 % 45 45 ABG pCO2 77.3 H* 73.9 H* ABG pO2 84 75 Kurt Test Positive Respiration Rate 12 12 O2 Delivery Device BiPAP BiPAP Vent Mode BiLevel POC PEEP 8 Crit Call To/Read Back Yes Yes Blood Gas Notified Whom Agyepong Clinical Comments 13/10 12 45 14. 8. 45% Radiography Diagnostic Testing: Radiology Impression Chest X-Ray 03/20/21 06:35 IMPRESSION: Hyperexpanded lungs and coarse interstitium compatible with chronic obstructive pulmonary disease. Sternotomy changes with rotated patient and lordotic positioning. at 0822 Reported and signed by: Terry Flores MD Electronically Signed: Terry Flores MD at 8:20 EST Tel , Service support , Rhythm Strip Rhythm Strip: Sinus Tach Rate: 118 Ectopy: None Physical Exam Const alert and no apparent distress Constitutional Narrative: Initially on BiPAP, but transition to nasal cannula and tolerating well. General Appearance: cooperative HEENT normocephalic, head/scalp atraumatic and moist oral mucous membranes Eyes EOMs intact bilaterally and conjunctivae normal Neck supple General: trachea midline Chest inspection of chest normal Chest: symmetrical chest wall rise; Negative for crepitus Resp normal respiratory effort Auscultation: diminished lung sounds; Negative for rales, rhonchi or wheezes Cardio regular rate, regular rhythm, no murmurs, no rub and no gallops Cardio Narrative: Mechanical heart sounds GI normal to inspection, nondistended, normoactive bowel sounds Extremity no clubbing, cyanosis or edema Skin no rashes or lesions noted Neuro CN's II-XII intact bilaterally and no focal motor deficits Psych Mood & Affect: flat affect Charges/Coding Visit Charges Inpatient E&M: 37881 Subs Hosp L3
--- NOTE | 2021-03-20 11:10 | CASEMGMT ---
Social Work Note SW received call from pt's D[employer] [facility] AY[facility] Prater ( , ) requesting update on pt. SW provided update. Rox asked that discharge paperwork be faxed to her at discharge. SW to continue to follow. Zainab Green ONLINE MARKETING MANAGER, CONCRETE WALL GRINDER OPERATOR
[2021-03-20] MEDS: Metoprolol Tartrate 25 MG Tablet 37.5 MG PO ×2 (11:14→21:20)
[2021-03-20] MEDS: Furosemide 20 MG Tablet PO (11:15)
--- NOTE | 2021-03-20 13:35 | CON.PCM.ID_ITS ---
Assessment & Plan Assessment/Plan (1) COVID-19 virus infection: PLAN: Sx started around 03/11/21. Isolate until 03/31. Vaccinated x2. On dex, remdesivir. Reviewed EUA and discussed risks and benefits of baricitinib with him. With 9L/NC, relatively low CRP, and rising ALT, we agree to not start baricitinib at this time. 1 of 2 bcx with CoNS, consistent with contaminant. Will follow, thank you (2) Acute and chronic respiratory failure with hypoxia: HPI Consult Data Date of Consult: 03/20/21 HPI Narrative HPI Narrative: KAYLEEN AWAD, is a 55 M with COPD, home 3L/NC, lives alone, presented 03/15 with worsening dyspnea, fatigue, fever, chills, cough without sputum. Vaccine x2. Sx started around 03/11/21. Came to ED, admitted on dex and remdesivir. Seen by pulm. Was on bipap overnight, back on 9L/nc this afternoon. Feeling ok. Full ROS performed and neg except as noted above. [facility] Medical History Acute on chronic respiratory failure with hypoxia Alkaline phosphatase elevation Aortic valve disease Bilateral leg edema Cholelithiasis Chronic hypoxemic respiratory failure Chronic respiratory failure COPD (chronic obstructive pulmonary disease) DVT (deep venous thrombosis) Eczema of hand GERD (gastroesophageal reflux disease) History of Coumadin therapy HTN (hypertension) Hyperlipidemia Hypersomnia Hypersomnia Hypoxemic respiratory failure, chronic Iatrogenic pneumothorax Learning disability Mixed obstructive and restrictive ventilatory defect Mood disorder Obesity Seizure disorder Shortness of breath Stage 4 very severe COPD by GOLD classification varicose veins Ventricular septal defect Home Medications Oxygen, Home [Home Oxygen] 2 - 4 lpm NASAL DAILY 04/05/16 [History Last Taken 12/27/20] albuterol sulfate 2.5 mg INHALATION Q4H PRN PRN 04/05/16 [History Last Taken Unknown] aspirin 81 mg tablet,delayed release 81 mg PO DAILY 03/17/17 [History Last Taken Unknown] multivitamin 1 tab PO QDAY 03/17/17 [History Last Taken Unknown] acetaminophen 325 mg tablet 325 mg PO Q6H PRN tab 01/04/20 [History Last Taken Unknown] vitamin B complex 1 tab PO DAILY 01/04/20 [History Last Taken Unknown] aluminum-mag hydroxide-simethicone 200 mg-200 mg-20 mg/5 mL oral susp 30 ml PO Q4H PRN ml 04/18/20 [History Last Taken Unknown] ascorbate calcium (vitamin C) 500 mg tablet 500 mg PO DAILY 04/18/20 [History Last Taken Unknown] bupropion HCl 150 mg tablet,12 hr sustained-release 150 mg PO DAILY 04/18/20 [History Last Taken Unknown] escitalopram oxalate 5 mg tablet 10 mg PO QHS tab 04/18/20 [History Last Taken Unknown] ferrous sulfate 325 mg (65 mg iron) tablet 325 mg PO BID 04/18/20 [History Last Taken Unknown] melatonin 3 mg capsule 5 mg PO HS PRN cap 04/18/20 [History Last Taken Unknown] pantoprazole 20 mg tablet,delayed release 40 mg PO DAILY 04/18/20 [History Last Taken Unknown] warfarin 5 mg tablet 5 mg PO SUMOTUWEFRSA 04/18/20 [History Last Taken Unknown] furosemide 20 mg PO DAILY 10/26/20 [History Last Taken Unknown] Trelegy Ellipta 1 inh INHALATION DAILY 12/27/20 [History Last Taken Unknown] cholecalciferol (vitamin D3) 50,000 unit PO TUFR 12/27/20 [History Last Taken Unknown] metoprolol tartrate 37.5 mg PO BID 12/27/20 [History Last Taken Unknown] phenytoin sodium extended [Dilantin Extended] 100 mg PO TID 12/27/20 [History Last Taken Unknown] potassium chloride 20 meq PO BID 12/27/20 [History Last Taken Unknown] warfarin 6 mg PO TH 12/27/20 [History Last Taken Unknown] prednisone 40 mg PO DAILY #14 tab 12/29/20 [Rx Last Taken Unknown] prednisone 40 mg PO DAILY #10 tab 12/31/20 [Rx Last Taken Unknown] albuterol sulfate 90 mcg/actuation aerosol inhaler 2 puff INHALATION Q4H PRN PRN #6.7 g 01/29/21 [Rx Last Taken Unknown] Allergy/AdvReac Type Severity Reaction Status Date / Time No Known Allergies Allergy Verified 03/15/21 18:35 Family History Father Lung cancer Osteoarthritis Mother Diabetes Thyroid disorder High cholesterol Breast cancer Grandmother Heart disease CVA (cerebral vascular accident) Surgical History Aortic valve replaced avr and aortic homograft closure H/O aortic valve replacement H/O hernia repair S/P VSD repair Social History (Updated 03/16/21 @ 02:[address] Yumiko De Leon MD) household members: none Smoking Status: Former smoker quit date: 03/02/12 pack-years: 40 Tobacco: How many years used: 35 second hand exposure: No alcohol intake: never substance use type: does not use Physical Exam Const alert, oriented x3 and no apparent distress General Appearance: cooperative Exam Limitations: no limitations HEENT head/scalp atraumatic Eyes PERRL and EOMs intact bilaterally Neck supple and No nodes Resp Auscultation: rales and diminished lung sounds Cardio regular rate and regular rhythm GI soft to palpation, non-tender and non-distended Extremity no clubbing, cyanosis or edema Skin no rashes or lesions noted Neuro CN's II-XII intact bilaterally Lab / Micro Data Result Diagrams: 03/20/21 05:23 03/20/21 05:23 Labs: Laboratory Results - last 24 hr 03/20/21 05:23: PT 24.0 H, INR 2.2 03/20/21 05:23: WBC 10.0, RBC 4.05 L, Hgb 12.6 L, Hct 42.6, MCV 105.2 H, MCH 31.1, MCHC 29.6 L, RDW Std Deviation 52.8 H, RDW Coeff of Joseluis 13.6, Plt Count 185, MPV 12.0, Immature Gran % (Auto) 1.500 H, Neut % (Auto) 78.1 H, Lymph % (Auto) 8.2 L, [place] % (Auto) 11.1 H, Eos % (Auto) 0.8, Baso % (Auto) 0.3, Absolute Neuts (auto) 7.8 H, Absolute Lymphs (auto) 0.82 L, Nucleated RBC % 0 03/20/21 05:23: Sodium 139, Potassium 4.1, Chloride 102, Carbon Dioxide 34.0 H, Anion Gap 3 L, BUN 37 H, Creatinine 1.16, Estim Creat Clear Calc 71.11, Est GFR (MDRD) Af Amer 84, Est GFR (MDRD) Non-Af 69, BUN/Creatinine Ratio 31.9 H, Glucose 130 H, Calcium 8.3 L, Total Bilirubin 0.40, AST 98 H, ALT 194 H, Alkaline Phosphatase 237 H, Total Protein 6.8, Albumin 2.9 L, Globulin 3.9, Albumin/Globulin Ratio 0.7 L 03/20/21 05:23: Magnesium 1.6, TSH 1.11 03/20/21 05:23: C-React Prot Ext Range 21.90 H ABG Data ABG results: ABG 03/19/21 03/19/21 17:28 20:49 Specimen Type ART ART Sample Site L Radial R Brach pH 7.31 L 7.32 L Bicarbonate Actual 39.0 H 38.1 H Total CO2 41 40 Base Excess 13 H 12 H O2 Saturation 95 93 L O2 % 45 45 ABG pCO2 77.3 H* 73.9 H* ABG pO2 84 75 Kurt Test Positive Respiration Rate 12 12 O2 Delivery Device BiPAP BiPAP Vent Mode BiLevel POC PEEP 8 Crit Call To/Read Back Yes Yes Blood Gas Notified Whom Agyepong Clinical Comments 148 12 45 14. 8. 45% Rhythm Strip Rhythm Strip: Sinus Tach Rate: 118 Ectopy: None Radiology Impression Chest X-Ray 03/20/21 06:35 IMPRESSION: Hyperexpanded lungs and coarse interstitium compatible with chronic obstructive pulmonary disease. Sternotomy changes with rotated patient and lordotic positioning. at 0822 Reported and signed by: Terry Flores MD Electronically Signed: Terry Flores MD at 8:20 EST Tel , Service support ,
[2021-03-20] MEDS: Escitalopram Oxalate 10 MG Tablet PO (21:20)
[2021-03-21] VITALS (22 sets, daily range): BP systolic 98–146; BP diastolic 56–77; PULSE 83–107; RESP 12–30; TEMP 36.6–36.8; O2SAT 90–99
[2021-03-21] MEDS: hydrOXYzine 10 MG Tablet PO (01:46)
[2021-03-21 06:42] LABS: Absolute Lymphocyte Count 0.75 X10^3/uL (0.83-4.51); Absolute Neutrophil Count 8.1 X10^3/uL (2.0-7.7); Basophil# 0.03 X10^3/uL; Basophil% 0.3 % (0-1); Eosinophil# 0.17 X10^3/uL; Eosinophils% 1.6 % (0-5); Hematocrit 40.6 % (40-54); Hemoglobin 12.4 g/dL (13.0-16.5); Lymphocyte # 0.75 X10^3/ul (0.83-4.51); Lymphocyte % 7.3 % (19-41); Mean Corp Hgb Conc 30.5 g/dL (32-36); Mean Corpuscular Hgb 31.6 pg (27.0-32.0); Mean Corpuscular Volume 103.6 fL (80-94); Mean Platelet Vol. 12.3 fl (6.2-12.0); Monocyte# 1.08 X10^3/uL; Monocyte% 10.5 % (0-10); NRBC Flagged by Analyzer 0 % (0-5); Neutrophil # 8.05 X10^3/uL (2.7-7.7); Neutrophil % 78.1 % (47-70); Platelet Count 210 K/mm3 (150-450); RBC Distribution Width CV 13.7 % (11.6-14.6); RBC Distribution Width SD 51.8 fl (35.1-43.9); Red Blood Count 3.92 M/mm3 (4.6-6.2); White Blood Count 10.3 K/mm3 (4.4-11.0)
[2021-03-21 06:51] LABS: International Normalized Ratio 2.7; Prothrombin Time (Protime)PT. 27.6 SECONDS (11.7-14.9)
[2021-03-21] MEDS: LORazepam 2 MG/ML Syringe 0.5 MG IV ×2 (06:55→13:58)
[2021-03-21] MEDS: 0.9% Saline Lock 10 ML Syringe IV ×5 (06:56→22:09)
[2021-03-21 07:01] LABS: ALB/GLOB Ratio 0.8 RATIO (0.9-2.4); AST(SGOT) 60 U/L (15-37); Alanine Aminotransfer ALT/SGPT 148 U/L (16-61); Albumin, Serum 2.7 g/dL (3.2-5.0); Alkaline Phosphatase 213 U/L (45-117); Anion Gap 5 (5-15); BUN 36 mg/dL (7-18); BUN/Creat Ratio 37.7 RATIO (10-20); Calcium,Total 8.2 mg/dL (8.5-10.1); Chloride 102 mmol/L (98-107); Creatinine, Serum 0.95 mg/dL (0.70-1.30); EST Glomerular Filtration Rate 87 mL/min (>60); Est Glom Filt Rate - Afr Amer 105 mL/min (>60); Estimated Creatinine Clearance 86.82 ml/min; Globulin 3.6 g/dL (2.2-4.2); Glucose 113 mg/dL (74-106); Potassium 4.2 mmol/L (3.5-5.1); Protein, Total 6.3 g/dL (6.4-8.2); Sodium Level 142 mmol/L (136-145)
[2021-03-21] MEDS: Budesonide Respules 0.5 MG/2 ML AMPUL.NEB. INHALATION ×2 (07:04→21:29)
[2021-03-21] MEDS: Ipratropium/Albuterol Sulfate 3 ML AMPUL.NEB INHALATION ×3 (07:04→21:29)
[2021-03-21] MEDS: Phenytoin Na 100 MG Capsule PO ×3 (07:07→22:08)
[2021-03-21] MEDS: Ferrous Sulfate 325 MG Tablet PO ×2 (08:59→22:08)
[2021-03-21] MEDS: Furosemide 20 MG Tablet PO (08:59)
[2021-03-21] MEDS: Aspirin E.C. 81 MG Tablet PO (09:00)
[2021-03-21] MEDS: Vitamin B Comp W-C Capsule 1 CAP PO (09:00)
[2021-03-21] MEDS: Multivitamins,Therapeutic Tablet 1 TABLET PO (09:00)
[2021-03-21] MEDS: dexAMETHasone 4 MG/ML Vial 6 MG IV (09:00)
[2021-03-21] MEDS: buPROPion (SR) 150 MG Tablet.SA PO (09:00)
[2021-03-21] MEDS: Metoprolol Tartrate 25 MG Tablet 37.5 MG PO ×2 (10:51→22:09)
--- NOTE | 2021-03-21 11:47 | PN.HOSP_ITS ---
Subjective Subjective Doing a little bit better today, Seth now that is not on the BiPAP. Maintaining his oxygen saturations on 9 L nasal cannula Objective Data Objective Data Vital Signs: Vital Signs Temp Pulse Resp BP Pulse Ox 98.1 F 85 20 H 114/69 99 03/21/21 10:48 03/21/21 10:51 03/21/21 10:48 03/21/21 10:51 03/21/21 10:48 Oxygen Flow Rate (L/min) 9 Oxygen Delivery Method High Flow Weight: 186 lb 4.65 oz Body Mass Index (BMI) 27.1 Intake & Output: Intake and Output for Last 24 Hours 03/20/21 03/21/21 03/22/21 03:59 03:59 03:59 Intake Total 1450 / 1450 860 / 860 Output Total 1200 / 1200 Balance 250 / 250 860 / 860 Lab / Micro Data Result Diagrams: 03/21/21 05:26 03/21/21 05:26 Labs: Laboratory Results - last 24 hr 03/21/21 05:26: PT 27.6 H, INR 2.7 03/21/21 05:26: WBC 10.3, RBC 3.92 L, Hgb 12.4 L, Hct 40.6, MCV 103.6 H, MCH 31.6, MCHC 30.5 L, RDW Std Deviation 51.8 H, RDW Coeff of Joseluis 13.7, Plt Count 210, MPV 12.3 H, Immature Gran % (Auto) 2.200 H, Neut % (Auto) 78.1 H, Lymph % (Auto) 7.3 L, [place] % (Auto) 10.5 H, Eos % (Auto) 1.6, Baso % (Auto) 0.3, Absolute Neuts (auto) 8.1 H, Absolute Lymphs (auto) 0.75 L, Nucleated RBC % 0 03/21/21 05:26: Sodium 142, Potassium 4.2, Chloride 102, Carbon Dioxide 35.0 H, Anion Gap 5, BUN 36 H, Creatinine 0.95, Estim Creat Clear Calc 86.82, Est GFR (MDRD) Af Amer 105, Est GFR (MDRD) Non-Af 87, BUN/Creatinine Ratio 37.7 H, Glu cose 113 H, Calcium 8.2 L, Total Bilirubin 0.40, AST 60 H, ALT 148 H, Alkaline Phosphatase 213 H, Total Protein 6.3 L, Albumin 2.7 L, Globulin 3.6, Albumin/Globulin Ratio 0.8 L Micro: Microbiology 03/15/21 19:05 Blood Culture (Wb) - Left Wrist Bacteria Detection (PCR) - Final Coag Negative Staph 03/15/21 19:05 Blood Culture (Wb) - Left Wrist Blood Culture - Final Coag Negative Staph 03/15/21 18:53 Blood Culture (Wb) #2 - Anticubital Left Blood Culture - Final No growth in 5 days. 03/15/21 23:10 Urine, Random Legionella Antigen - Final 03/15/21 23:10 Urine, Random Streptococcus pneumoniae Antigen (M - Final 03/15/21 18:50 Nasal Secretion SARS-CoV-2 Antigen (Rapid) - Final SARS-CoV-2 (COVID 19) Rhythm Strip Rhythm Strip: Sinus Tach Rate: 118 Ectopy: None Physical Exam Narrative Const alert, oriented x3 and no apparent distress General Appearance: cooperative HEENT normocephalic and moist oral mucous membranes Eyes PERRL, EOMs intact bilaterally and conjunctivae normal Neck supple and no JVD Resp normal respiratory effort, no retractions and no use of accessory muscles Auscultation: diminished lung sounds; Negative for crackles, rales, rhonchi or wheezes Cardio regular rate, regular rhythm, S1 normal heart sound, S2 normal heart sound and no murmurs GI soft to palpation, non-tender and non-distended; Negative for hepatosplenomegaly Extremity no clubbing, cyanosis or edema Skin no rashes or lesions noted Neuro no focal motor deficits and no sensory deficits noted Psych affect normal Appearance: appropriate Assessment & Plan Assessment/Plan (1) Acute and chronic respiratory failure with hypoxia: (2) COVID-19 virus infection: PLAN: #Acute on chronic hypoxic respiratory faillure due to covid pneumonia * on 9 L of oxygen today. * on decadron * Completed remdesivir * urine for strep and legionella negative. * breathing treatment with bronchodilators * Pulmonology on board * INR is therapeutic, will continue to monitor * No baricitinib per ID CRP is not significantly elevated #Hypertension: On metoprolol. IV hydralazine as needed #Valvular heart disease: Has a mechanical aortic valve prosthesis. On Coumadin. INR is therapeutic. #Hyperlipidemia: Not on any medication. Follow-up with PCP on outpatient basis. #Seizure disorder: On phenytoin #Depression: On BuSpar and escitalopram DVT: Coumadin Charges/Coding Visit Charges Inpatient E&M: 56144 Subs Hosp L2
--- NOTE | 2021-03-21 14:16 | PCM.PN.INT ---
Assessment & Plan Assessment/Plan (1) Acute and chronic respiratory failure with hypoxia: (2) COVID-19 virus infection: PLAN: RECOMMENDATIONS: 1. Wean supplemental oxygen to maintain saturations at or above 90%. 2. Completed Remdesivir. Continue Decadron (03/25/2021) as ordered. Check CRP for possible baricitinib 3. Continue Coumadin per home regimen. Check INR daily. Monitor for GI bleed 4. Encourage incentive spirometer use and mobilize patient as tolerated. 5. Continue BiPAP support with naps and nightly. Challenge with diuretics tonight IMPRESSIONS: 1. Acute on chronic hypoxemic respiratory failure secondary to COVID-19 pneumonia The patient has known end-stage COPD and is currently on a triple therapy inhaler regimen along with a baseline oxygen requirement of 3 to 5 L/min. He presented with worsening dyspnea and hypoxemia. The patient is vaccinated but not yet boosted. Plan to continue supplemental oxygen via nasal cannula throughout the day with BiPAP support at night as tolerated. Continue supportive measures including Decadron and bronchodilators. Given worsening, could consider getting a CRP for possible baricitinib. Continue Coumadin per outpatient regimen and check INR daily. Chest x-ray appears to be relatively unchanged compared to previous. Tachypnea will exacerbate underlying lung pathology that may lead to worsening oxygenation. Cultures are showing no growth at this time. Patient is reporting improvement following BiPAP therapy could be suggestive of slight volume overload. We will increase diuretic doses for today and see how patient responds tomorrow. 2. Valvular heart disease/hypertension/hyperlipidemia/anemia/seizure disorder/prior tobacco dependency/depression Complicates care, management, recovery and prognosis. Continue home medications as indicated. Patient is fully anticoagulated and reporting nausea. This may be secondary to potassium, but GI bleed will also have to be watched closely. This note was generated with [employer] dictation software. It may contain incorrect words, spelling, and punctuation that were not noted in checking the note before signing. Subjective Subjective Patient did okay overnight. Patient reporting that he was using BiPAP for rescue. Patient states that after 30 minutes of BiPAP he feels like his breathing is improved. Patient is back to 9 L nasal cannula maintain a diet. No bleeding has been reported. Objective Data Objective Data Vital Signs: Vital Signs Temp Pulse Resp BP Pulse Ox 36.7 C 85 24 H 114/69 97 03/21/21 10:48 01/20/22 13:24 03/21/21 13:24 03/21/21 10:51 03/21/21 13:23 Oxygen Flow Rate (L/min) 7 Oxygen Delivery Method High Flow Weight: 84.5 kg Body Mass Index (BMI) 27.1 Intake & Output: Intake and Output for Last 24 Hours 03/19/21 03/20/21 03/21/21 23:59 23:59 23:59 Intake Total 1450 / 1450 860 / 860 Output Total 1450 / 1450 Balance 0 / 0 860 / 860 Lab / Micro Data Result Diagrams: 03/21/21 05:26 03/21/21 05:26 Labs: Laboratory Results - last 24 hr 03/21/21 05:26: PT 27.6 H, INR 2.7 03/21/21 05:26: WBC 10.3, RBC 3.92 L, Hgb 12.4 L, Hct 40.6, MCV 103.6 H, MCH 31.6, MCHC 30.5 L, RDW Std Deviation 51.8 H, RDW Coeff of Joseluis 13.7, Plt Count 210, MPV 12.3 H, Immature Gran % (Auto) 2.200 H, Neut % (Auto) 78.1 H, Lymph % (Auto) 7.3 L, [place] % (Auto) 10.5 H, Eos % (Auto) 1.6, Baso % (Auto) 0.3, Absolute Neuts (auto) 8.1 H, Absolute Lymphs (auto) 0.75 L, Nucleated RBC % 0 03/21/21 05:26: Sodium 142, Potassium 4.2, Chloride 102, Carbon Dioxide 35.0 H, Anion Gap 5, BUN 36 H, Creatinine 0.95, Estim Creat Clear Calc 86.82, Est GFR (MDRD) Af Amer 105, Est GFR (MDRD) Non-Af 87, BUN/Creatinine Ratio 37.7 H, Glucose 113 H, Calcium 8.2 L, Total Bilirubin 0.40, AST 60 H, ALT 148 H, Alkaline Phosphatase 213 H, Total Protein 6.3 L, Albumin 2.7 L, Globulin 3.6, Albumin/Globulin Ratio 0.8 L Micro: Microbiology 03/15/21 19:05 Blood Culture (Wb) - Left Wrist Bacteria Detection (PCR) - Final Coag Negative Staph 03/15/21 19:05 Blood Culture (Wb) - Left Wrist Blood Culture - Final Coag Negative Staph 03/15/21 18:53 Blood Culture (Wb) #2 - Anticubital Left Blood Culture - Final No growth in 5 days. 03/15/21 23:10 Urine, Random Legionella Antigen - Final 03/15/21 23:10 Urine, Random Streptococcus pneumoniae Antigen (M - Final 03/15/21 18:50 Nasal Secretion SARS-CoV-2 Antigen (Rapid) - Final SARS-CoV-2 (COVID 19) Rhythm Strip Rhythm Strip: Sinus Tach Rate: 118 Ectopy: None Physical Exam Const alert and no apparent distress Constitutional Narrative: On nasal cannula and tolerating well. General Appearance: cooperative HEENT normocephalic, head/scalp atraumatic and moist oral mucous membranes Eyes EOMs intact bilaterally and conjunctivae normal Neck supple General: trachea midline Chest inspection of chest normal Chest: symmetrical chest wall rise; Negative for crepitus Resp normal respiratory effort Auscultation: diminished lung sounds; Negative for rales, rhonchi or wheezes Cardio regular rate, regular rhythm, no murmurs, no rub and no gallops Cardio Narrative: Mechanical heart sounds GI normal to inspection, nondistended, normoactive bowel sounds Extremity no clubbing, cyanosis or edema Skin no rashes or lesions noted Neuro CN's II-XII intact bilaterally and no focal motor deficits Psych Mood & Affect: flat affect Charges/Coding Visit Charges Inpatient E&M: 26929 Subs Hosp L2
[2021-03-21] MEDS: Furosemide 20 MG/2 ML VIAL IV (17:06)
[2021-03-21] MEDS: Escitalopram Oxalate 10 MG Tablet PO (22:08)
[2021-03-22] VITALS (27 sets, daily range): BP systolic 95–115; BP diastolic 64–71; PULSE 76–110; RESP 12–23; TEMP 36.3–36.7; O2SAT 91–99
[2021-03-22] MEDS: LORazepam 0.5 MG Tablet PO ×4 (00:26→21:12)
[2021-03-22] MEDS: Phenytoin Na 100 MG Capsule PO ×3 (05:01→21:13)
[2021-03-22 06:41] LABS: International Normalized Ratio 2.9; Prothrombin Time (Protime)PT. 29.2 SECONDS (11.7-14.9)
[2021-03-22 06:53] LABS: Anion Gap 3 (5-15); BUN 35 mg/dL (7-18); BUN/Creat Ratio 37.7 RATIO (10-20); Calcium,Total 8.8 mg/dL (8.5-10.1); Chloride 103 mmol/L (98-107); Creatinine, Serum 0.93 mg/dL (0.70-1.30); EST Glomerular Filtration Rate 89 mL/min (>60); Est Glom Filt Rate - Afr Amer 108 mL/min (>60); Estimated Creatinine Clearance 88.69 ml/min; Glucose 104 mg/dL (74-106); Sodium Level 143 mmol/L (136-145)
[2021-03-22] MEDS: Ipratropium/Albuterol Sulfate 3 ML AMPUL.NEB INHALATION ×3 (07:51→20:10)
[2021-03-22] MEDS: Furosemide 20 MG Tablet PO (08:56)
[2021-03-22] MEDS: Multivitamins,Therapeutic Tablet 1 TABLET PO (08:57)
[2021-03-22] MEDS: buPROPion (SR) 150 MG Tablet.SA PO (08:57)
[2021-03-22] MEDS: Vitamin B Comp W-C Capsule 1 CAP PO (08:57)
[2021-03-22] MEDS: Ferrous Sulfate 325 MG Tablet PO ×2 (08:57→21:13)
[2021-03-22] MEDS: dexAMETHasone 2 MG TABLET 6 MG PO (08:57)
[2021-03-22] MEDS: Aspirin E.C. 81 MG Tablet PO (08:57)
[2021-03-22] MEDS: Pantoprazole Sodium 40 MG Tablet PO (08:57)
--- NOTE | 2021-03-22 09:31 | PN.CC_ITS ---
Assessment & Plan Assessment/Plan (1) Acute and chronic respiratory failure with hypoxia: (2) COVID-19 virus infection: PLAN: RECOMMENDATIONS: 1. Wean supplemental oxygen to maintain saturations at or above 90%. 2. Completed Remdesivir. Continue Decadron (03/25/2021) as ordered. 3. Continue Coumadin per home regimen. Check INR daily. Monitor for GI bleed 4. Encourage incentive spirometer use and mobilize patient as tolerated. 5. Continue BiPAP support with naps and nightly. Challenge with diuretics tonight IMPRESSIONS: 1. Acute on chronic hypoxemic respiratory failure secondary to COVID-19 pneumonia The patient has known end-stage COPD and is currently on a triple therapy inhaler regimen along with a baseline oxygen requirement of 3 to 5 L/min. He presented with worsening dyspnea and hypoxemia. The patient is vaccinated but not yet boosted. Plan to continue supplemental oxygen via nasal cannula throug hout the day with BiPAP support at night as tolerated. Continue supportive measures including Decadron and bronchodilators. Given worsening, could consider getting a CRP for possible baricitinib. Continue Coumadin per outpatient regimen and check INR daily. Cultures are showing no growth at this time. Patient is reporting improvement following BiPAP therapy could be suggestive of slight volume overload. Patient understands that testing will need to be done as an outpatient to qualify for BiPAP at home. This could be continued if patient went to an ECF. We will increase diuretic doses for today and see how patient responds tomorrow. 2. Valvular heart disease/hypertension/hyperlipidemia/anemia/seizure disorder/prior tobacco dependency/depression Complicates care, management, recovery and prognosis. Continue home medications as indicated. Patient is fully anticoagulated and reporting nausea. This may be secondary to potassium, but GI bleed will also have to be watched closely. This note was generated with [employer] dictation software. It may contain incorrect words, spelling, and punctuation that were not noted in checking the note before signing. Subjective Subjective Patient did well overnight. Patient is asking if he can have a BiPAP for home as he feels this is very helpful. Patient is not reporting any epistaxis or hemoptysis. Patient still requiring significant nasal cannula oxygen to maintain saturations. Objective Data Objective Data Vital Signs: Vital Signs Temp Pulse Resp BP Pulse Ox 36.5 C L 110 H 18 95/66 93 03/22/21 08:53 01/21/22 08:53 03/22/21 08:53 03/22/21 08:53 03/22/21 08:53 Oxygen Flow Rate (L/min) 9 Oxygen Delivery Method High Flow Weight: 83.915 kg Body Mass Index (BMI) 27.1 Intake & Output: Intake and Output for Last 24 Hours 03/20/21 03/21/21 03/22/21 23:59 23:59 23:59 Intake Total 860 / 860 Output Total 600 / 600 Balance 860 / 860 -600 / -600 Lab / Micro Data Result Diagrams: 03/21/21 05:26 03/22/21 05:45 Labs: Laboratory Results - last 24 hr 03/22/21 05:45: PT 29.2 H, INR 2.9 03/22/21 05:45: Sodium 143, Potassium 4.0, Chloride 103, Carbon Dioxide 37.0 H, Anion Gap 3 L, BUN 35 H, Creatinine 0.93, Estim Creat Clear Calc 88.69, Est GFR (MDRD) Af Amer 108, Est GFR (MDRD) Non-Af 89, BUN/Creatinine Ratio 37.7 H, Glucose 104, Calcium 8.8 Micro: Microbiology 03/15/21 19:05 Blood Culture (Wb) - Left Wrist Bacteria Detection (PCR) - Final Coag Negative Staph 03/15/21 19:05 Blood Culture (Wb) - Left Wrist Blood Culture - Final Coag Negative Staph 03/15/21 18:53 Blood Culture (Wb) #2 - Anticubital Left Blood Culture - Final No growth in 5 days. 03/15/21 23:10 Urine, Random Legionella Antigen - Final 03/15/21 23:10 Urine, Random Streptococcus pneumoniae Antigen (M - Final 03/15/21 18:50 Nasal Secretion SARS-CoV-2 Antigen (Rapid) - Final SARS-CoV-2 (COVID 19) Rhythm Strip Rhythm Strip: Sinus Tach Rate: 118 Ectopy: None Physical Exam Const alert and no apparent distress Constitutional Narrative: On nasal cannula and tolerating well. General Appearance: cooperative HEENT normocephalic, head/scalp atraumatic and moist oral mucous membranes Eyes EOMs intact bilaterally and conjunctivae normal Neck supple General: trachea midline Chest inspection of chest normal Chest: symmetrical chest wall rise; Negative for crepitus Resp normal respiratory effort Auscultation: diminished lung sounds; Negative for rales, rhonchi or wheezes Cardio regular rate, regular rhythm, no murmurs, no rub and no gallops Cardio Narrative: Mechanical heart sounds GI normal to inspection, nondistended, normoactive bowel sounds Extremity no clubbing, cyanosis or edema Skin no rashes or lesions noted Neuro CN's II-XII intact bilaterally and no focal motor deficits Psych Mood & Affect: flat affect Charges/Coding Visit Charges Inpatient E&M: 33868 Subs Hosp L2
[2021-03-22] MEDS: Metoprolol Tartrate 25 MG Tablet 37.5 MG PO ×2 (10:25→21:13)
[2021-03-22] MEDS: Furosemide 40 MG Tablet PO (16:27)
--- NOTE | 2021-03-22 16:33 | PN.HOSP_ITS ---
Subjective Subjective Doing well, no issues overnight. He is breathing little bit easier and is anywhere between 8 and 9L nasal cannula. He does tolerate the BiPAP now a little bit better Objective Data Objective Data Vital Signs: Vital Signs Temp Pulse Resp BP Pulse Ox 97.3 F L 95 18 102/67 91 03/22/21 14:06 03/22/21 15:00 03/22/21 14:06 03/22/21 14:06 03/22/21 15:03 Oxygen Flow Rate (L/min) 8 Oxygen Delivery Method High Flow Weight: 185 lb Body Mass Index (BMI) 27.1 Intake & Output: Intake and Output for Last 24 Hours 03/21/21 03/22/21 03/23/21 03:59 03:59 03:59 Intake Total 860 / 860 Output Total 200 / 200 700 / 700 Balance 860 / 860 -200 / -200 -700 / -700 Lab / Micro Data Result Diagrams: 03/21/21 05:26 03/22/21 05:45 Labs: Laboratory Results - last 24 hr 03/22/21 05:45: PT 29.2 H, INR 2.9 03/22/21 05:45: Sodium 143, Potassium 4.0, Chloride 103, Carbon Dioxide 37.0 H, Anion Gap 3 L, BUN 35 H, Creatinine 0.93, Estim Creat Clear Calc 88.69, Est GFR (MDRD) Af Amer 108, Est GFR (MDRD) Non-Af 89, BUN/Creatinine Ratio 37.7 H, Glucose 104, Calcium 8.8 Micro: Microbiology 03/15/21 19:05 Blood Culture (Wb) - Left Wrist Bacteria Detection (PCR) - Final Coag Negative Staph 03/15/21 19:05 Blood Culture (Wb) - Left Wrist Blood Culture - Final Coag Negative Staph 03/15/21 18:53 Blood Culture (Wb) #2 - Anticubital Left Blood Culture - Final No growth in 5 days. 03/15/21 23:10 Urine, Random Legionella Antigen - Final 03/15/21 23:10 Urine, Random Streptococcus pneumoniae Antigen (M - Final 03/15/21 18:50 Nasal Secretion SARS-CoV-2 Antigen (Rapid) - Final SARS-CoV-2 (COVID 19) Rhythm Strip Rhythm Strip: Sinus Tach Rate: 118 Ectopy: None Physical Exam Narrative Const alert, oriented x3 and no apparent distress General Appearance: cooperative HEENT normocephalic and moist oral mucous membranes Eyes PERRL, EOMs intact bilaterally and conjunctivae normal Neck supple and no JVD Resp normal respiratory effort, no retractions and no use of accessory muscles Auscultation: diminished lung sounds; Negative for crackles, rales, rhonchi or wheezes Cardio regular rate, regular rhythm, S1 normal heart sound, S2 normal heart sound and no murmurs GI soft to palpation, non-tender and non-distended; Negative for hepatosplenomegaly Extremity no clubbing, cyanosis or edema Skin no rashes or lesions noted Neuro no focal motor deficits and no sensory deficits noted Psych affect normal Appearance: appropriate Assessment & Plan Assessment/Plan (1) Acute and chronic respiratory failure with hypoxia: (2) COVID-19 virus infection: PLAN: #Acute on chronic hypoxic respiratory faillure due to covid pneumonia * on 9 L of oxygen today. * on decadron * Completed remdesivir * urine for strep and legionella negative. * breathing treatment with bronchodilators * Pulmonology on board, continue with BiPAP when sleeping * INR is therapeutic, will continue to monitor * No baricitinib per ID CRP is not significantly elevated #Hypertension: On metoprolol. IV hydralazine as needed #Valvular heart disease: Has a mechanical aortic valve prosthesis. On Coumadin. INR is therapeutic. #Hyperlipidemia: Not on any medication. Follow-up with PCP on outpatient basis. #Seizure disorder: On phenytoin #Depression: On BuSpar and escitalopram DVT: Coumadin Charges/Coding Visit Charges Inpatient E&M: 69486 Subs Hosp L2
[2021-03-22] MEDS: Escitalopram Oxalate 10 MG Tablet PO (21:13)
[2021-03-23] VITALS (24 sets, daily range): BP systolic 96–113; BP diastolic 61–74; PULSE 80–92; RESP 12–24; TEMP 36.2–36.7; O2SAT 86–96
[2021-03-23 06:36] LABS: Prothrombin Time (Protime)PT. 30.2 SECONDS (11.7-14.9)
[2021-03-23 06:49] LABS: Anion Gap 2 (5-15); BUN 33 mg/dL (7-18); Calcium,Total 8.4 mg/dL (8.5-10.1); Chloride 102 mmol/L (98-107); Creatinine, Serum 0.92 mg/dL (0.70-1.30); EST Glomerular Filtration Rate 91 mL/min (>60); Est Glom Filt Rate - Afr Amer 110 mL/min (>60); Estimated Creatinine Clearance 89.66 ml/min; Glucose 96 mg/dL (74-106); Potassium 3.9 mmol/L (3.5-5.1); Sodium Level 142 mmol/L (136-145)
[2021-03-23] MEDS: Phenytoin Na 100 MG Capsule PO ×3 (06:51→20:53)
[2021-03-23] MEDS: LORazepam 0.5 MG Tablet PO ×3 (06:51→20:53)
[2021-03-23] MEDS: Ipratropium/Albuterol Sulfate 3 ML AMPUL.NEB INHALATION ×3 (07:02→20:35)
--- NOTE | 2021-03-23 08:50 | PN.CC_ITS ---
Assessment & Plan Assessment/Plan (1) Acute and chronic respiratory failure with hypoxia: (2) COVID-19 virus infection: PLAN: RECOMMENDATIONS: 1. Wean supplemental oxygen to maintain saturations at or above 90%. 2. Completed Remdesivir. Continue Decadron (03/25/2021) as ordered. 3. Continue Coumadin per home regimen. Check INR daily. 4. Encourage incentive spirometer use and mobilize patient as tolerated. 5. Continue BiPAP support with naps and nightly. Continue to challenge with afternoon diuretics IMPRESSIONS: 1. Acute on chronic hypoxemic respiratory failure secondary to COVID-19 pneumonia The patient has known end-stage COPD and is currently on a triple therapy inhaler regimen along with a baseline oxygen requirement of 3 to 5 L/min. He presented with worsening dyspnea and hypoxemia. The patient is vaccinated but not yet boosted. Plan to continue supplemental oxygen via nasal cannula throughout the day with BiPAP support at night as tolerated. Continue supportive measures including Decadron and bronchodilators. Given worsening, could consider getting a CRP for possible baricitinib. Continue Coumadin per outpatient regimen and check INR daily. Cultures are showing no growth at this time. Patient is reporting improvement following BiPAP therapy could be suggestive of slight volume overload. Patient understands that testing will need to be done as an outpatient to qualify for BiPAP at home. This could be continued if patient went to an ECF. We will continue to give additional dose of diuretics in the evening as patient appears to be tolerating. Continue to monitor renal function and wean oxygen as tolerated. 2. Valvular heart disease/hypertension/hyperlipidemia/anemia/seizure disorder/prior tobacco dependency/depression Complicates care, management, recovery and prognosis. Continue home medications as indicated. Patient is fully anticoagulated and reporting nausea. This may be secondary to potassium, but GI bleed will also have to be watched closely. This note was generated with [employer] dictation software. It may contain incorrect words, spelling, and punctuation that were not noted in checking the note before signing. Subjective Subjective Patient resting comfortably on nasal cannula during my evaluation. Patient with no complaints today. Patient believes he requires his BiPAP less now. Objective Data Objective Data Vital Signs: Vital Signs Temp Pulse Resp BP Pulse Ox 36.2 C L 92 18 107/74 94 03/23/21 06:00 03/23/21 07:18 03/23/21 07:02 03/23/21 06:00 03/23/21 07:02 Oxygen Flow Rate (L/min) 8 Oxygen Delivery Method High Flow Weight: 83.6 kg Body Mass Index (BMI) 27.1 Intake & Output: Intake and Output for Last 24 Hours 03/21/21 03/22/21 03/23/21 23:59 23:59 23:59 Intake Total 240 / 240 Output Total 900 / 900 700 / 700 Balance -660 / -660 -700 / -700 Lab / Micro Data Result Diagrams: 03/21/21 05:26 03/23/21 06:10 Labs: Laboratory Results - last 24 hr 03/23/21 06:10: PT 30.2 H, INR 3.0 03/23/21 06:10: Sodium 142, Potassium 3.9, Chloride 102, Carbon Dioxide 38.0 H, Anion Gap 2 L, BUN 33 H, Creatinine 0.92, Estim Creat Clear Calc 89.66, Est GFR (MDRD) Af Amer 110, Est GFR (MDRD) Non-Af 91, BUN/Creatinine Ratio 36.0 H, Glucose 96, Calcium 8.4 L Micro: Microbiology 03/15/21 19:05 Blood Culture (Wb) - Left Wrist Bacteria Detection (PCR) - Final Coag Negative Staph 03/15/21 19:05 Blood Culture (Wb) - Left Wrist Blood Culture - Final Coag Negative Staph 03/15/21 18:53 Blood Culture (Wb) #2 - Anticubital Left Blood Culture - Final No growth in 5 days. 03/15/21 23:10 Urine, Random Legionella Antigen - Final 03/15/21 23:10 Urine, Random Streptococcus pneumoniae Antigen (M - Final 03/15/21 18:50 Nasal Secretion SARS-CoV-2 Antigen (Rapid) - Final SARS-CoV-2 (COVID 19) Rhythm Strip Rhythm Strip: Sinus Tach Rate: 118 Ectopy: None Physical Exam Const alert and no apparent distress Constitutional Narrative: On nasal cannula and tolerating well. General Appearance: cooperative HEENT normocephalic, head/scalp atraumatic and moist oral mucous membranes Eyes EOMs intact bilaterally and conjunctivae normal Neck supple General: trachea midline Chest inspection of chest normal Chest: symmetrical chest wall rise; Negative for crepitus Resp normal respiratory effort Auscultation: diminished lung sounds; Negative for rales, rhonchi or wheezes Cardio regular rate, regular rhythm, no murmurs, no rub and no gallops Cardio Narrative: Mechanical heart sounds GI normal to inspection, nondistended, normoactive bowel sounds Extremity no clubbing, cyanosis or edema Skin no rashes or lesions noted Neuro CN's II-XII intact bilaterally and no focal motor deficits Psych Mood & Affect: flat affect Charges/Coding Visit Charges Inpatient E&M: 59008 Subs Hosp L2
[2021-03-23] MEDS: Ferrous Sulfate 325 MG Tablet PO ×2 (09:22→20:53)
[2021-03-23] MEDS: Metoprolol Tartrate 25 MG Tablet 37.5 MG PO ×2 (09:22→20:53)
[2021-03-23] MEDS: Furosemide 20 MG Tablet PO (09:22)
[2021-03-23] MEDS: buPROPion (SR) 150 MG Tablet.SA PO (09:22)
[2021-03-23] MEDS: Aspirin E.C. 81 MG Tablet PO (09:22)
[2021-03-23] MEDS: dexAMETHasone 2 MG TABLET 6 MG PO (09:22)
[2021-03-23] MEDS: Vitamin B Comp W-C Capsule 1 CAP PO (09:22)
[2021-03-23] MEDS: Multivitamins,Therapeutic Tablet 1 TABLET PO (09:22)
[2021-03-23] MEDS: Pantoprazole Sodium 40 MG Tablet PO (09:22)
--- NOTE | 2021-03-23 11:32 | PN.HOSP_ITS ---
Subjective Subjective Breathing better today, slowly coming down on his oxygen. He does like the BiPAP at night and when he sleeps. Objective Data Objective Data Vital Signs: Vital Signs Temp Pulse Resp BP Pulse Ox 97.9 F 90 20 H 113/73 93 03/23/21 09:19 03/23/21 09:22 03/23/21 09:19 03/23/21 09:27 03/23/21 11:02 Oxygen Flow Rate (L/min) 9 Oxygen Delivery Method High Flow Weight: 184 lb 4.903 oz Body Mass Index (BMI) 27.1 Intake & Output: Intake and Output for Last 24 Hours 03/22/21 03/23/21 03/24/21 03:59 03:59 03:59 Intake Total 240 / 240 Output Total 200 / 200 1000 / 1000 400 / 400 Balance -200 / -200 -760 / -760 -400 / -400 Lab / Micro Data Result Diagrams: 03/21/21 05:26 03/23/21 06:10 Labs: Laboratory Results - last 24 hr 03/23/21 06:10: PT 30.2 H, INR 3.0 03/23/21 06:10: Sodium 142, Potassium 3.9, Chloride 102, Carbon Dioxide 38.0 H, Anion Gap 2 L, BUN 33 H, Creatinine 0.92, Estim Creat Clear Calc 89.66, Est GFR (MDRD) Af Amer 110, Est GFR (MDRD) Non-Af 91, BUN/Creatinine Ratio 36.0 H, Glucose 96, Calcium 8.4 L Micro: Microbiology 03/15/21 19:05 Blood Culture (Wb) - Left Wrist Bacteria Detection (PCR) - Final Coag Negative Staph 03/15/21 19:05 Blood Culture (Wb) - Left Wrist Blood Culture - Final Coag Negative Staph 03/15/21 18:53 Blood Culture (Wb) #2 - Anticubital Left Blood Culture - Final No growth in 5 days. 03/15/21 23:10 Urine, Random Legionella Antigen - Final 03/15/21 23:10 Urine, Random Streptococcus pneumoniae Antigen (M - Final 03/15/21 18:50 Nasal Secretion SARS-CoV-2 Antigen (Rapid) - Final SARS-CoV-2 (COVID 19) Rhythm Strip Rhythm Strip: Sinus Tach Rate: 118 Ectopy: None Physical Exam Narrative Const alert, oriented x3 and no apparent distress General Appearance: cooperative HEENT normocephalic and moist oral mucous membranes Eyes PERRL, EOMs intact bilaterally and conjunctivae normal Neck supple and no JVD Resp normal respiratory effort, no retractions and no use of accessory muscles Auscultation: diminished lung sounds; Negative for crackles, rales, rhonchi or wheezes Cardio regular rate, regular rhythm, S1 normal heart sound, S2 normal heart sound and no murmurs GI soft to palpation, non-tender and non-distended; Negative for hepatosplenomegaly Extremity no clubbing, cyanosis or edema Skin no rashes or lesions noted Neuro no focal motor deficits and no sensory deficits noted Psych affect normal Appearance: appropriate Assessment & Plan Assessment/Plan (1) Acute and chronic respiratory failure with hypoxia: (2) COVID-19 virus infection: PLAN: #Acute on chronic hypoxic respiratory faillure due to covid pneumonia * on 9 L of oxygen today. * on decadron * Completed remdesivir * urine for strep and legionella negative. * breathing treatment with bronchodilators * Pulmonology on board, continue with BiPAP when sleeping * INR is therapeutic, will continue to monitor * No baricitinib per ID CRP is not significantly elevated #Hypertension: On metoprolol. IV hydralazine as needed #Valvular heart disease: Has a mechanical aortic valve prosthesis. On Coumadin. INR is therapeutic. #Hyperlipidemia: Not on any medication. Follow-up with PCP on outpatient basis. #Seizure disorder: On phenytoin #Depression: On BuSpar and escitalopram DVT: Coumadin Charges/Coding Visit Charges Inpatient E&M: 55060 Subs Hosp L2
[2021-03-23] MEDS: Furosemide 40 MG Tablet PO (17:28)
[2021-03-23] MEDS: Escitalopram Oxalate 10 MG Tablet PO (20:52)
[2021-03-24] VITALS (20 sets, daily range): BP systolic 108–125; BP diastolic 63–81; PULSE 78–94; RESP 12–20; TEMP 36.4–36.9; O2SAT 88–95
[2021-03-24] MEDS: Phenytoin Na 100 MG Capsule PO ×3 (06:12→21:11)
[2021-03-24] MEDS: LORazepam 0.5 MG Tablet PO ×3 (06:12→21:11)
[2021-03-24] MEDS: Ipratropium/Albuterol Sulfate 3 ML AMPUL.NEB INHALATION ×3 (07:16→19:09)
[2021-03-24 07:57] LABS: Anion Gap 3 (5-15); BUN 30 mg/dL (7-18); BUN/Creat Ratio 33.6 RATIO (10-20); Calcium,Total 8.6 mg/dL (8.5-10.1); Chloride 99 mmol/L (98-107); Creatinine, Serum 0.89 mg/dL (0.70-1.30); EST Glomerular Filtration Rate 93 mL/min (>60); Est Glom Filt Rate - Afr Amer 113 mL/min (>60); Estimated Creatinine Clearance 92.68 ml/min; Glucose 96 mg/dL (74-106); Potassium 3.8 mmol/L (3.5-5.1); Sodium Level 142 mmol/L (136-145)
--- NOTE | 2021-03-24 08:15 | PN.CC_ITS ---
Assessment & Plan Assessment/Plan (1) Acute and chronic respiratory failure with hypoxia: (2) COVID-19 virus infection: PLAN: RECOMMENDATIONS: 1. Wean supplemental oxygen to maintain saturations at or above 90%. 2. Completed Remdesivir. Continue Decadron (03/25/2021) as ordered. 3. Continue Coumadin per home regimen. Check INR daily. 4. Encourage incentive spirometer use and mobilize patient as tolerated. 5. Continue BiPAP support with naps and nightly. Continue to challenge with afternoon diuretics as renal function allows 6. Hemodynamically stable. We will sign off from a pulmonary perspective. Please call with issues. IMPRESSIONS: 1. Acute on chronic hypoxemic respiratory failure secondary to COVID-19 pneumonia The patient has known end-stage COPD and is currently on a triple therapy inhaler regimen along with a baseline oxygen requirement of 3 to 5 L/min. He presented with worsening dyspnea and hypoxemia. The patient is vaccinated but not yet boosted. Plan to continue supplemental oxygen via nasal cannula throughout the day with BiPAP support at night as tolerated. Continue supportive measures including Decadron and bronchodilators. Continue Coumadin per outpatient regimen and check INR daily. Cultures are showing no growth at this time. Patient is reporting improvement following BiPAP therapy could be suggestive of slight volume overload. Patient understands that testing will n eed to be done as an outpatient to qualify for BiPAP at home. This could be continued if patient went to an ECF. Patient appears to be responding well to increased diuretics in the evening. Would continue this pattern as long as renal function allows. Okay to discharge when ambulates on 6 L or less. We will sign off from a pulmonary perspective. Please call with any issues. 2. Valvular heart disease/hypertension/hyperlipidemia/anemia/seizure disorder/prior tobacco dependency/depression Complicates care, management, recovery and prognosis. Continue home me dications as indicated. Patient is fully anticoagulated and reporting nausea. This may be secondary to potassium, but GI bleed will also have to be watched closely. This note was generated with [employer] dictation software. It may contain incorrect words, spelling, and punctuation that were not noted in checking the note before signing. Subjective Subjective Patient did okay overnight. Patient continues to report subjective improvement in overall condition. Patient tolerating BiPAP with sleep. Objective Data Objective Data Vital Signs: Vital Signs Temp Pulse Resp BP Pulse Ox 36.4 C L 81 18 112/73 95 03/24/21 02:46 03/24/21 07:16 03/24/21 07:16 03/24/21 02:46 03/24/21 07:16 Oxygen Flow Rate (L/min) 7 Oxygen Delivery Method High Flow Weight: 84.2 kg Body Mass Index (BMI) 27.1 Intake & Output: Intake and Output for Last 24 Hours 03/22/21 03/23/21 03/24/21 23:59 23:59 23:59 Intake Total 240 / 240 150 / 150 Output Total 900 / 900 2700 / 2700 575 / 575 Balance -660 / -660 -2700 / -2700 -425 / -425 Lab / Micro Data Result Diagrams: 03/21/21 05:26 03/24/21 07:10 Labs: Laboratory Results - last 24 hr 03/24/21 07:10: Sodium 142, Potassium 3.8, Chloride 99, Carbon Dioxide 40.0 H, Anion Gap 3 L, BUN 30 H, Creatinine 0.89, Estim Creat Clear Calc 92.68, Est GFR (MDRD) Af Amer 113, Est GFR (MDRD) Non-Af 93, BUN/Creatinine Ratio 33.6 H, Glucose 96, Calcium 8.6 Micro: Microbiology 03/15/21 19:05 Blood Culture (Wb) - Left Wrist Bacteria Detection (PCR) - Final Coag Negative Staph 03/15/21 19:05 Blood Culture (Wb) - Left Wrist Blood Culture - Final Coag Negative Staph 03/15/21 18:53 Blood Culture (Wb) #2 - Anticubital Left Blood Culture - Final No growth in 5 days. 03/15/21 23:10 Urine, Random Legionella Antigen - Final 03/15/21 23:10 Urine, Random Streptococcus pneumoniae Antigen (M - Final 03/15/21 18:50 Nasal Secretion SARS-CoV-2 Antigen (Rapid) - Final SARS-CoV-2 (COVID 19) Rhythm Strip Rhythm Strip: Sinus Tach Rate: 118 Ectopy: None Physical Exam Const alert and no apparent distress Constitutional Narrative: On nasal cannula and tolerating well. General Appearance: cooperative HEENT normocephalic, head/scalp atraumatic and moist oral mucous membranes Eyes EOMs intact bilaterally and conjunctivae normal Neck supple General: trachea midline Chest inspection of chest normal Chest: symmetrical chest wall rise; Negative for crepitus Resp normal respiratory effort Auscultation: diminished lung sounds; Negative for rales, rhonchi or wheezes Cardio regular rate, regular rhythm, no murmurs, no rub and no gallops Cardio Narrative: Mechanical heart sounds GI normal to inspection, nondistended, normoactive bowel sounds Extremity no clubbing, cyanosis or edema Skin no rashes or lesions noted Neuro CN's II-XII intact bilaterally and no focal motor deficits Psych Mood & Affect: flat affect Charges/Coding Visit Charges Inpatient E&M: 03765 Subs Hosp L2
[2021-03-24] MEDS: Aspirin E.C. 81 MG Tablet PO (08:59)
[2021-03-24] MEDS: Metoprolol Tartrate 25 MG Tablet 37.5 MG PO ×2 (08:59→21:10)
[2021-03-24] MEDS: Ferrous Sulfate 325 MG Tablet PO ×2 (09:00→21:11)
[2021-03-24] MEDS: Vitamin B Comp W-C Capsule 1 CAP PO (09:00)
[2021-03-24] MEDS: dexAMETHasone 2 MG TABLET 6 MG PO (09:00)
[2021-03-24] MEDS: Pantoprazole Sodium 40 MG Tablet PO (09:00)
[2021-03-24] MEDS: Furosemide 20 MG Tablet PO (09:00)
[2021-03-24] MEDS: Multivitamins,Therapeutic Tablet 1 TABLET PO (09:00)
[2021-03-24] MEDS: buPROPion (SR) 150 MG Tablet.SA PO (09:00)
--- NOTE | 2021-03-24 10:24 | PN.HOSP_ITS ---
Subjective Subjective Doing well, tolerating BiPAP at night with Lasix at night as well. Currently down to 7 L nasal cannula Objective Data Objective Data Vital Signs: Vital Signs Temp Pulse Resp BP Pulse Ox 97.8 F 80 20 H 125/72 H 92 03/24/21 09:03 03/24/21 09:29 03/24/21 09:03 03/24/21 09:03 03/24/21 09:03 Oxygen Flow Rate (L/min) 8 Oxygen Delivery Method High Flow Weight: 185 lb 10.067 oz Body Mass Index (BMI) 27.1 Intake & Output: Intake and Output for Last 24 Hours 03/23/21 03/24/21 03/25/21 03:59 03:59 03:59 Intake Total 240 / 240 150 / 150 Output Total 1000 / 1000 2675 / 2675 650 / 650 Balance -760 / -760 -2675 / -2675 -500 / -500 Lab / Micro Data Result Diagrams: 03/21/21 05:26 03/24/21 07:10 Labs: Laboratory Results - last 24 hr 03/24/21 07:10: Sodium 142, Potassium 3.8, Chloride 99, Carbon Dioxide 40.0 H, Anion Gap 3 L, BUN 30 H, Creatinine 0.89, Estim Creat Clear Calc 92.68, Est GFR (MDRD) Af Amer 113, Est GFR (MDRD) Non-Af 93, BUN/Creatinine Ratio 33.6 H, Glucose 96, Calcium 8.6 Micro: Microbiology 03/15/21 19:05 Blood Culture (Wb) - Left Wrist Bacteria Detection (PCR) - Final Coag Negative Staph 03/15/21 19:05 Blood Culture (Wb) - Left Wrist Blood Culture - Final Coag Negative Staph 03/15/21 18:53 Blood Culture (Wb) #2 - Anticubital Left Blood Culture - Final No growth in 5 days. 03/15/21 23:10 Urine, Random Legionella Antigen - Final 03/15/21 23:10 Urine, Random Streptococcus pneumoniae Antigen (M - Final 03/15/21 18:50 Nasal Secretion SARS-CoV-2 Antigen (Rapid) - Final SARS-CoV-2 (COVID 19) Rhythm Strip Rhythm Strip: Sinus Tach Rate: 118 Ectopy: None Physical Exam Narrative Const alert, oriented x3 and no apparent distress General Appearance: cooperative HEENT normocephalic and moist oral mucous membranes Eyes PERRL, EOMs intact bilaterally and conjunctivae normal Neck supple and no JVD Resp normal respiratory effort, no retractions and no use of accessory muscles Auscultation: diminished lung sounds; Negative for crackles, rales, rhonchi or wheezes Cardio regular rate, regular rhythm, S1 normal heart sound, S2 normal heart sound and no murmurs GI soft to palpation, non-tender and non-distended; Negative for hepatosplenomegaly Extremity no clubbing, cyanosis or edema Skin no rashes or lesions noted Neuro no focal motor deficits and no sensory deficits noted Psych affect normal Appearance: appropriate Assessment & Plan Assessment/Plan (1) Acute and chronic respiratory failure with hypoxia: (2) COVID-19 virus infection: PLAN: #Acute on chronic hypoxic respiratory faillure due to covid pneumonia * on 7 L of oxygen today. * Completed Decadron 03/24/2021 * Completed remdesivir * urine for strep and legionella negative. * breathing treatment with bronchodilators * Pulmonology on board, continue with BiPAP when sleeping, and afternoon Lasix if renal function allows * INR is therapeutic, will continue to monitor * No baricitinib per ID CRP is not significantly elevated #Hypertension: On metoprolol. IV hydralazine as needed #Valvular heart disease: Has a mechanical aortic valve prosthesis. On Coumadin. INR is therapeutic. #Hyperlipidemia: Not on any medication. Follow-up with PCP on outpatient basis. #Seizure disorder: On phenytoin #Depression: On BuSpar and escitalopram DVT: Coumadin Charges/Coding Visit Charges Inpatient E&M: 05363 Subs Hosp L2
[2021-03-24] MEDS: Furosemide 40 MG Tablet PO (16:48)
[2021-03-24] MEDS: Escitalopram Oxalate 10 MG Tablet PO (21:11)
[2021-03-25] VITALS (18 sets, daily range): BP systolic 111–115; BP diastolic 67–74; PULSE 78–92; RESP 12–20; TEMP 36.4–36.9; O2SAT 90–96
[2021-03-25] MEDS: Phenytoin Na 100 MG Capsule PO ×3 (05:55→20:56)
[2021-03-25] MEDS: LORazepam 0.5 MG Tablet PO ×3 (05:56→20:56)
[2021-03-25 06:50] LABS: Absolute Lymphocyte Count 1.21 X10^3/uL (0.83-4.51); Absolute Neutrophil Count 4.7 X10^3/uL (2.0-7.7); Basophil# 0.06 X10^3/uL; Basophil% 0.8 % (0-1); Eosinophil# 0.29 X10^3/uL; Eosinophils% 3.9 % (0-5); Hematocrit 38.4 % (40-54); Hemoglobin 11.5 g/dL (13.0-16.5); Lymphocyte # 1.21 X10^3/ul (0.83-4.51); Lymphocyte % 16.5 % (19-41); Mean Corp Hgb Conc 29.9 g/dL (32-36); Mean Corpuscular Hgb 30.9 pg (27.0-32.0); Mean Corpuscular Volume 103.2 fL (80-94); Mean Platelet Vol. 11.9 fl (6.2-12.0); Monocyte# 0.76 X10^3/uL; Monocyte% 10.3 % (0-10); NRBC Flagged by Analyzer 0 % (0-5); Neutrophil # 4.74 X10^3/uL (2.7-7.7); Neutrophil % 64.6 % (47-70); Platelet Count 288 K/mm3 (150-450); RBC Distribution Width CV 13.6 % (11.6-14.6); RBC Distribution Width SD 52.1 fl (35.1-43.9); Red Blood Count 3.72 M/mm3 (4.6-6.2); White Blood Count 7.4 K/mm3 (4.4-11.0)
[2021-03-25 07:00] LABS: Anion Gap 4 (5-15); BUN 35 mg/dL (7-18); BUN/Creat Ratio 34.7 RATIO (10-20); Calcium,Total 8.6 mg/dL (8.5-10.1); Chloride 96 mmol/L (98-107); Creatinine, Serum 1.01 mg/dL (0.70-1.30); EST Glomerular Filtration Rate 81 mL/min (>60); Est Glom Filt Rate - Afr Amer 98 mL/min (>60); Estimated Creatinine Clearance 81.67 ml/min; Glucose 98 mg/dL (74-106); Potassium 3.9 mmol/L (3.5-5.1); Sodium Level 140 mmol/L (136-145)
[2021-03-25] MEDS: Ipratropium/Albuterol Sulfate 3 ML AMPUL.NEB INHALATION ×3 (07:00→21:03)
[2021-03-25 07:03] LABS: Prothrombin Time (Protime)PT. 21.6 SECONDS (11.7-14.9)
--- NOTE | 2021-03-25 08:21 | PCM.PN.HOSP ---
Subjective Subjective Patient is a 55-year-old gentleman admitted with progressive shortness of breath diagnosed with acute hypoxic respiratory failure secondary to Covid pneumonia Objective Data Objective Data Vital Signs: Vital Signs Temp Pulse Resp BP Pulse Ox 98.1 F 85 20 H 112/69 94 03/25/21 02:04 03/25/21 07:01 03/25/21 07:01 03/25/21 02:04 03/25/21 07:01 Oxygen Flow Rate (L/min) 9 Oxygen Delivery Method High Flow Weight: 84.6 kg Body Mass Index (BMI) 27.1 Intake & Output: Intake and Output for Last 24 Hours 03/23/21 03/24/21 03/25/21 23:59 23:59 23:59 Intake Total 300 / 300 Output Total 2700 / 2700 1625 / 1625 200 / 200 Balance -2700 / -2700 -1325 / -1325 -200 / -200 Lab / Micro Data Result Diagrams: 03/25/21 06:16 03/25/21 06:16 Labs: Laboratory Results - last 24 hr 03/25/21 06:16: WBC 7.4, RBC 3.72 L, Hgb 11.5 L, Hct 38.4 L, MCV 103.2 H, MCH 30.9, MCHC 29.9 L, RDW Std Deviation 52.1 H, RDW Coeff of Joseluis 13.6, Plt Count 288, MPV 11.9, Immature Gran % (Auto) 3.900 H, Neut % (Auto) 64.6, Lymph % (Auto) 16.5 L, [place] % (Auto) 10.3 H, Eos % (Auto) 3.9, Baso % (Auto) 0.8, Absolute Neuts (auto) 4.7, Absolute Lymphs (auto) 1.21, Nucleated RBC % 0 03/25/21 06:16: PT 21.6 H, INR 2.0 03/25/21 06:16: Sodium 140, Potassium 3.9, Chloride 96 L, Carbon Dioxide 40.0 H, Anion Gap 4 L, BUN 35 H, Creatinine 1.01, Estim Creat Clear Calc 81.67, Est GFR (MDRD) Af Amer 98, Est GFR (MDRD) Non-Af 81, BUN/Creatinine Ratio 34.7 H, Glucose 98, Calcium 8.6 Micro: Microbiology 03/15/21 19:05 Blood Culture (Wb) - Left Wrist Bacteria Detection (PCR) - Final Coag Negative Staph 03/15/21 19:05 Blood Culture (Wb) - Left Wrist Blood Culture - Final Coag Negative Staph 03/15/21 18:53 Blood Culture (Wb) #2 - Anticubital Left Blood Culture - Final No growth in 5 days. 03/15/21 23:10 Urine, Random Legionella Antigen - Final 03/15/21 23:10 Urine, Random Streptococcus pneumoniae Antigen (M - Final 03/15/21 18:50 Nasal Secretion SARS-CoV-2 Antigen (Rapid) - Final SARS-CoV-2 (COVID 19) Rhythm Strip Rhythm Strip: Sinus Tach Rate: 118 Ectopy: None Physical Exam Narrative GENERAL: cooperative HEENT: Atraumatic; EYES; Anicteric, Normal Conjunctiva NECK; supple, normal thyroid, RESPIRATORY: Diminished to auscultation CARDIOVASCULAR: Regular S1 S2, GI: soft, normoactive bowel sounds, : No Renal angle tenderness; EXTREMITIES: No edema, no clubbing, MUSCULOSKELETAL: no muscle waisting NEURO: Awake; no lateralizing signs. SKIN: No Rash PSYCH; Flat affect Assessment & Plan Assessment/Plan (1) Acute and chronic respiratory failure with hypoxia: (2) COVID-19 virus infection: PLAN: Patient is a 55-year-old gentleman admitted with progressive shortness of breath diagnosed with acute hypoxic respiratory failure secondary to Covid pneumonia 1. Acute on chronic hypoxic respiratory failure ?Secondary to Covid pneumonia patient completed course of Decadron as well as remdesivir. Patient still remains on supplemental oxygen currently at 9 L flow per minute via nasal cannula 2. Chronic hypoxic respiratory failure ?Secondary to COPD, patient is on 5 L flow per minute continuous at baseline 3. Hypertension - Blood pressure controlled, home medications continued with dose adjustment as needed 4. Seizure disorder ?Discontinue patient antiseizure medications 5. Valvular heart disease ?With history of mechanical aortic valve prosthesis patient is on Coumadin. INR is 2.0?subtherapeutic (Range 2.5-3.5) 6. Depression ?Continue patient home regimen 7. GERD ?On PPI 8. Physical deconditioning - Requested for PT OT eval and social work coordinator to assist with discharge planning 9. DVT prophylaxis ?On Coumadin Charges/Coding Visit Charges Inpatient E&M: 54050 Subs Hosp L2
[2021-03-25] MEDS: Ferrous Sulfate 325 MG Tablet PO ×2 (08:35→20:56)
[2021-03-25] MEDS: Furosemide 20 MG Tablet PO (08:35)
[2021-03-25] MEDS: Aspirin E.C. 81 MG Tablet PO (08:35)
[2021-03-25] MEDS: Metoprolol Tartrate 25 MG Tablet 37.5 MG PO ×2 (08:35→20:56)
[2021-03-25] MEDS: Vitamin B Comp W-C Capsule 1 CAP PO (08:35)
[2021-03-25] MEDS: buPROPion (SR) 150 MG Tablet.SA PO (08:36)
[2021-03-25] MEDS: Pantoprazole Sodium 40 MG Tablet PO (08:36)
[2021-03-25] MEDS: Multivitamins,Therapeutic Tablet 1 TABLET PO (08:36)
--- NOTE | 2021-03-25 09:40 | PN.CC_ITS ---
Assessment & Plan Assessment/Plan (1) Acute and chronic respiratory failure with hypoxia: (2) COVID-19 virus infection: PLAN: RECOMMENDATIONS: 1. Wean supplemental oxygen to maintain saturations at or above 90%. 2. Continue Coumadin per home regimen. Check INR daily. 3. Encourage incentive spirometer use and mobilize patient as tolerated. 4. Continue BiPAP support with naps and nightly. 5. Continue diuretics as needed to maintain euvolemic state. IMPRESSIONS: 1. Acute on chronic hypoxemic respiratory failure secondary to COVID-19 jonah chavez The patient has known end-stage COPD and is currently on a triple therapy inhaler regimen along with a baseline oxygen requirement of 3 to 5 L/min. He presented with worsening dyspnea and hypoxemia. The patient is vaccinated but not yet boosted. Plan to continue supplemental oxygen via nasal cannula throughout the day with BiPAP support at night as tolerated. Continue supportive measures including Decadron and bronchodilators. Continue Coumadin per outpatient regimen and check INR daily. Cultures are showing no growth at this time. Continue diuretics as needed to maintain euvolemic state. 2. Valvular heart disease/hypertension/hyperlipidemia/anemia/seizure disorder/prior tobacco dependency/depression Complicates care, management, recovery and prognosis. Continue home medications as indicated. This note was generated with [employer] dictation software. It may contain incorrect words, spelling, and punctuation that were not noted in checking the note before signing. Subjective Subjective The patient was seen and examined at the bedside this morning. Events from the last 24 hours have been reviewed. The patient is currently afebrile, hemodynamically stable and maintaining appropriate oxygen saturations on 8 L/min. The patient is currently documented to be overall net -1.9 L for the hospitalization. INR therapeutic at 2.0. Objective Data Objective Data The patient's most recent lab work, culture data and imaging studies have all been personally reviewed. Rapid coronavirus antigen testing was positive on March 15. Strep and urine Legionella antigens were negative. Vital Signs: Vital Signs Temp Pulse Resp BP Pulse Ox 97.8 F 86 18 115/74 92 03/25/21 08:40 03/25/21 09:00 03/25/21 08:40 03/25/21 08:40 03/25/21 08:40 Oxygen Flow Rate (L/min) 8 Oxygen Delivery Method High Flow Weight: 84.6 kg Body Mass Index (BMI) 27.1 Intake & Output: Intake and Output for Last 24 Hours 03/23/21 03/24/21 03/25/21 23:59 23:59 23:59 Intake Total 300 / 300 Output Total 2700 / 2700 1625 / 1625 300 / 300 Balance -2700 / -2700 -1325 / -1325 -300 / -300 Lab / Micro Data Attestation: I reviewed the patient's lab results. Result Diagrams: 03/25/21 06:16 03/25/21 06:16 Labs: Laboratory Results - last 24 hr 03/25/21 06:16: WBC 7.4, RBC 3.72 L, Hgb 11.5 L, Hct 38.4 L, MCV 103.2 H, MCH 30.9, MCHC 29.9 L, RDW Std Deviation 52.1 H, RDW Coeff of Joseluis 13.6, Plt Count 288, MPV 11.9, Immature Gran % (Auto) 3.900 H, Neut % (Auto) 64.6, Lymph % (Auto) 16.5 L, [place] % (Auto) 10.3 H, Eos % (Auto) 3.9, Baso % (Auto) 0.8, Absolute Neuts (auto) 4.7, Absolute Lymphs (auto) 1.21, Nucleated RBC % 0 03/25/21 06:16: PT 21.6 H, INR 2.0 03/25/21 06:16: Sodium 140, Potassium 3.9, Chloride 96 L, Carbon Dioxide 40.0 H, Anion Gap 4 L, BUN 35 H, Creatinine 1.01, Estim Creat Clear Calc 81.67, Est GFR (MDRD) Af Amer 98, Est GFR (MDRD) Non-Af 81, BUN/Creatinine Ratio 34.7 H, Glucose 98, Calcium 8.6 Micro: Microbiology 03/15/21 19:05 Blood Culture (Wb) - Left Wrist Bacteria Detection (PCR) - Final Coag Negative Staph 03/15/21 19:05 Blood Culture (Wb) - Left Wrist Blood Culture - Final Coag Negative Staph 03/15/21 18:53 Blood Culture (Wb) #2 - Anticubital Left Blood Culture - Final No growth in 5 days. 03/15/21 23:10 Urine, Random Legionella Antigen - Final 03/15/21 23:10 Urine, Random Streptococcus pneumoniae Antigen (M - Final 03/15/21 18:50 Nasal Secretion SARS-CoV-2 Antigen (Rapid) - Final SARS-CoV-2 (COVID 19) Rhythm Strip Rhythm Strip: Sinus Tach Rate: 118 Ectopy: None Physical Exam Const alert and no apparent distress General Appearance: cooperative HEENT normocephalic and head/scalp atraumatic Eyes PERRL, EOMs intact bilaterally and conjunctivae normal Neck supple General: trachea midline Chest inspection of chest normal Resp Auscultation: diminished lung sounds Cardio regular rate and regular rhythm GI normal to inspection, nondistended, normoactive bowel sounds Extremity no clubbing, cyanosis or edema Skin no rashes or lesions noted Neuro CN's II-XII intact bilaterally, moves all extremities and no focal motor deficits Psych Mood & Affect: flat affect Charges/Coding Visit Charges Inpatient E&M: 34603 Subs Hosp L2
[2021-03-25] MEDS: Escitalopram Oxalate 10 MG Tablet PO (20:56)
[2021-03-26] VITALS (18 sets, daily range): BP systolic 98–122; BP diastolic 67–82; PULSE 67–90; RESP 12–24; TEMP 36.5–36.8; O2SAT 91–96
[2021-03-26] MEDS: Phenytoin Na 100 MG Capsule PO ×3 (05:41→21:14)
[2021-03-26] MEDS: LORazepam 0.5 MG Tablet PO ×3 (05:41→21:14)
[2021-03-26 06:18] LABS: Absolute Lymphocyte Count 1.24 X10^3/uL (0.83-4.51); Absolute Neutrophil Count 4.9 X10^3/uL (2.0-7.7); Basophil# 0.06 X10^3/uL; Basophil% 0.8 % (0-1); Eosinophil# 0.46 X10^3/uL; Eosinophils% 6.1 % (0-5); Hematocrit 39.3 % (40-54); Hemoglobin 11.7 g/dL (13.0-16.5); Lymphocyte # 1.24 X10^3/ul (0.83-4.51); Lymphocyte % 16.4 % (19-41); Mean Corp Hgb Conc 29.8 g/dL (32-36); Mean Corpuscular Hgb 30.9 pg (27.0-32.0); Mean Corpuscular Volume 103.7 fL (80-94); Mean Platelet Vol. 12.3 fl (6.2-12.0); Monocyte# 0.76 X10^3/uL; Monocyte% 10.1 % (0-10); NRBC Flagged by Analyzer 0 % (0-5); Neutrophil # 4.86 X10^3/uL (2.7-7.7); Neutrophil % 64.2 % (47-70); Platelet Count 275 K/mm3 (150-450); RBC Distribution Width CV 13.6 % (11.6-14.6); RBC Distribution Width SD 51.7 fl (35.1-43.9); Red Blood Count 3.79 M/mm3 (4.6-6.2); White Blood Count 7.6 K/mm3 (4.4-11.0)
[2021-03-26 06:24] LABS: International Normalized Ratio 1.8; Prothrombin Time (Protime)PT. 20.3 SECONDS (11.7-14.9)
[2021-03-26] MEDS: Ipratropium/Albuterol Sulfate 3 ML AMPUL.NEB INHALATION ×3 (07:03→20:35)
[2021-03-26 07:11] LABS: Anion Gap 5 (5-15); BUN 38 mg/dL (7-18); BUN/Creat Ratio 36.9 RATIO (10-20); Calcium,Total 8.4 mg/dL (8.5-10.1); Chloride 98 mmol/L (98-107); Creatinine, Serum 1.03 mg/dL (0.70-1.30); EST Glomerular Filtration Rate 79 mL/min (>60); Est Glom Filt Rate - Afr Amer 96 mL/min (>60); Estimated Creatinine Clearance 80.08 ml/min; Glucose 85 mg/dL (74-106); Potassium 4.8 mmol/L (3.5-5.1); Sodium Level 139 mmol/L (136-145)
--- NOTE | 2021-03-26 07:43 | PN.HOSP_ITS ---
Subjective Subjective Patient seen currently down to 7 L flow per minute of oxygen. Objective Data Objective Data Vital Signs: Vital Signs Temp Pulse Resp BP Pulse Ox 97.7 F L 79 20 H 122/82 H 96 03/26/21 02:15 03/26/21 07:31 03/26/21 07:04 03/26/21 02:15 03/26/21 07:04 Oxygen Flow Rate (L/min) 8 Oxygen Delivery Method High Flow Weight: 86.2 kg Body Mass Index (BMI) 27.1 Intake & Output: Intake and Output for Last 24 Hours 03/24/21 03/25/21 03/26/21 23:59 23:59 23:59 Intake Total 300 / 300 250 / 250 Output Total 1625 / 1625 850 / 850 Balance -1325 / -1325 -600 / -600 Lab / Micro Data Result Diagrams: 03/26/21 04:36 03/26/21 04:36 Labs: Laboratory Results - last 24 hr 03/26/21 04:36: PT 20.3 H, INR 1.8 03/26/21 04:36: WBC 7.6, RBC 3.79 L, Hgb 11.7 L, Hct 39.3 L, MCV 103.7 H, MCH 30.9, MCHC 29.8 L, RDW Std Deviation 51.7 H, RDW Coeff of Joseluis 13.6, Plt Count 275, MPV 12.3 H, Immature Gran % (Auto) 2.400 H, Neut % (Auto) 64.2, Lymph % (Auto) 16.4 L, [place] % (Auto) 10.1 H, Eos % (Auto) 6.1 H, Baso % (Auto) 0.8, Absolute Neuts (auto) 4.9, Absolute Lymphs (auto) 1.24, Nucleated RBC % 0 03/26/21 04:36: Sodium 139, Potassium 4.8, Chloride 98, Carbon Dioxide 36.0 H, Anion Gap 5, BUN 38 H, Creatinine 1.03, Estim Creat Clear Calc 80.08, Est GFR (MDRD) Af Amer 96, Est GFR (MDRD) Non-Af 79, BUN/Creatinine Ratio 36.9 H, Glucose 85, Calcium 8.4 L Micro: Microbiology 03/15/21 19:05 Blood Culture (Wb) - Left Wrist Bacteria Detection (PCR) - Final Coag Negative Staph 03/15/21 19:05 Blood Culture (Wb) - Left Wrist Blood Culture - Final Coag Negative Staph 03/15/21 18:53 Blood Culture (Wb) #2 - Anticubital Left Blood Culture - Final No growth in 5 days. 03/15/21 23:10 Urine, Random Legionella Antigen - Final 03/15/21 23:10 Urine, Random Streptococcus pneumoniae Antigen (M - Final 03/15/21 18:50 Nasal Secretion SARS-CoV-2 Antigen (Rapid) - Final SARS-CoV-2 (COVID 19) Rhythm Strip Rhythm Strip: Sinus Tach Rate: 118 Ectopy: None Physical Exam Narrative GENERAL: cooperative HEENT: Atraumatic; EYES; Anicteric, Normal Conjunctiva NECK; supple, normal thyroid, RESPIRATORY: Diminished to auscultation CARDIOVASCULAR: Regular S1 S2, GI: soft, normoactive bowel sounds, : No Renal angle tenderness; EXTREMITIES: No edema, no clubbing, MUSCULOSKELETAL: no muscle waisting NEURO: Awake; no lateralizing signs. SKIN: No Rash PSYCH; Flat affect Assessment & Plan Assessment/Plan (1) Acute and chronic respiratory failure with hypoxia: (2) COVID-19 virus infection: PLAN: Patient is a 55-year-old gentleman admitted with progressive shortness of breath diagnosed with acute hypoxic respiratory failure secondary to Covid pneumonia 1. Acute on chronic hypoxic respiratory failure ?Secondary to Covid pneumonia patient completed course of Decadron as well as remdesivir. Patient still remains on supplemental oxygen currently at 9 L flow per minute via nasal cannula -03/26/2021;Patient seen currently down to 7 L flow per minute of oxygen. 2. Chronic hypoxic respiratory failure ?Secondary to COPD, patient is on 5 L flow per minute continuous at baseline 3. Hypertension - Blood pressure controlled, home medications continued with dose adjustment as needed 4. Seizure disorder ?Discontinue patient antiseizure medications 5. Valvular heart disease ?With history of mechanical aortic valve prosthesis patient is on Coumadin. INR is 2.0?subtherapeutic (Range 2.5-3.5) -03/26/2021; INR down to 1.8 additional dose of Coumadin given repeat INR ordered for a.m. 6. Depression ?Continue patient home regimen 7. GERD ?On PPI 8. Physical deconditioning - Requested for PT OT eval and clinical social work aide to assist with discharge planning 9. DVT prophylaxis ?On Coumadin Charges/Coding Visit Charges Inpatient E&M: 71099 Subs Hosp L2
--- NOTE | 2021-03-26 09:36 | CASEMGMT ---
TC to pt room. Pt states he wishes to return home. He does not feel he needs therapy in a SNF at this time. TC to Sebastián at [facility]– [place], she is aware that pt will return home with therapy added to the order when pt is at 6L O2 at rest.
[2021-03-26] MEDS: Multivitamins,Therapeutic Tablet 1 TABLET PO (10:44)
[2021-03-26] MEDS: Aspirin E.C. 81 MG Tablet PO (10:44)
[2021-03-26] MEDS: Ferrous Sulfate 325 MG Tablet PO ×2 (10:44→21:14)
[2021-03-26] MEDS: Metoprolol Tartrate 25 MG Tablet 37.5 MG PO ×2 (10:44→21:13)
[2021-03-26] MEDS: Furosemide 20 MG Tablet PO (10:44)
[2021-03-26] MEDS: Vitamin B Comp W-C Capsule 1 CAP PO (10:44)
[2021-03-26] MEDS: Pantoprazole Sodium 40 MG Tablet PO (10:45)
[2021-03-26] MEDS: buPROPion (SR) 150 MG Tablet.SA PO (10:45)
--- NOTE | 2021-03-26 11:31 | CASEMGMT ---
Pt screened with [facility] Palliative Care Screening Tool d/t COPD and COVID. Pt met criteria, order received. Email to Palliative Care to make aware pt is COVID + and request to follow when pt is at home out of isolation.
--- NOTE | 2021-03-26 13:45 | PN.CC_ITS ---
Assessment & Plan Assessment/Plan (1) Acute and chronic respiratory failure with hypoxia: (2) COVID-19 virus infection: PLAN: RECOMMENDATIONS: 1. Wean supplemental oxygen to maintain saturations at or above 90%. 2. Continue Coumadin per home regimen. Check INR daily. 3. Encourage incentive spirometer use and mobilize patient as tolerated. 4. Continue BiPAP support with naps and nightly. 5. Continue diuretics as needed to maintain euvolemic state. IMPRESSIONS: 1. Acute on chronic hypoxemic respiratory failure secondary to COVID-19 jonah chavez The patient has known end-stage COPD and is currently on a triple therapy inhaler regimen along with a baseline oxygen requirement of 3 to 5 L/min. He presented with worsening dyspnea and hypoxemia. The patient is vaccinated but not yet boosted. Plan to continue supplemental oxygen via nasal cannula throughout the day with BiPAP support at night as tolerated. Continue supportive measures including Decadron and bronchodilators. Continue Coumadin per outpatient regimen and check INR daily. Cultures are showing no growth at this time. Continue diuretics as needed to maintain euvolemic state. 2. Valvular heart disease/hypertension/hyperlipidemia/anemia/seizure disorder/prior tobacco dependency/depression Complicates care, management, recovery and prognosis. Continue home medications as indicated. This note was generated with [employer] dictation software. It may contain incorrect words, spelling, and punctuation that were not noted in checking the note before signing. Subjective Subjective The patient was seen and examined at the bedside this morning. Events from the last 24 hours have been reviewed. The patient is currently afebrile, hemodynamically stable and maintaining appropriate oxygen saturations on 7 L/min. The patient is currently documented to be overall net -2.2 L for the hospitalization. INR is subtherapeutic at 1.8. Creatinine is stable. Objective Data Objective Data The patient's most recent lab work, culture data and imaging studies have all been personally reviewed. Rapid coronavirus antigen testing was positive on March 15. Strep and urine Legionella antigens were negative. Vital Signs: Vital Signs Temp Pulse Resp BP Pulse Ox 97.9 F 78 20 H 105/70 91 03/26/21 10:40 03/26/21 13:43 03/26/21 13:43 03/26/21 10:40 03/26/21 10:40 Oxygen Flow Rate (L/min) 7 Oxygen Delivery Method High Flow Weight: 86.2 kg Body Mass Index (BMI) 27.1 Intake & Output: Intake and Output for Last 24 Hours 03/24/21 03/25/21 03/26/21 23:59 23:59 23:59 Intake Total 300 / 300 250 / 250 Output Total 1625 / 1625 850 / 850 Balance -1325 / -1325 -600 / -600 Lab / Micro Data Attestation: I reviewed the patient's lab results. Result Diagrams: 03/26/21 04:36 03/26/21 04:36 Labs: Laboratory Results - last 24 hr 03/26/21 04:36: PT 20.3 H, INR 1.8 03/26/21 04:36: WBC 7.6, RBC 3.79 L, Hgb 11.7 L, Hct 39.3 L, MCV 103.7 H, MCH 30.9, MCHC 29.8 L, RDW Std Deviation 51.7 H, RDW Coeff of Joseluis 13.6, Plt Count 275, MPV 12.3 H, Immature Gran % (Auto) 2.400 H, Neut % (Auto) 64.2, Lymph % (Auto) 16.4 L, [place] % (Auto) 10.1 H, Eos % (Auto) 6.1 H, Baso % (Auto) 0.8, Absolute Neuts (auto) 4.9, Absolute Lymphs (auto) 1.24, Nucleated RBC % 0 03/26/21 04:36: Sodium 139, Potassium 4.8, Chloride 98, Carbon Dioxide 36.0 H, Anion Gap 5, BUN 38 H, Creatinine 1.03, Estim Creat Clear Calc 80.08, Est GFR (MDRD) Af Amer 96, Est GFR (MDRD) Non-Af 79, BUN/Creatinine Ratio 36.9 H, Glucose 85, Calcium 8.4 L Micro: Microbiology 03/15/21 19:05 Blood Culture (Wb) - Left Wrist Bacteria Detection (PCR) - Final Coag Negative Staph 03/15/21 19:05 Blood Culture (Wb) - Left Wrist Blood Culture - Final Coag Negative Staph 03/15/21 18:53 Blood Culture (Wb) #2 - Anticubital Left Blood Culture - Final No growth in 5 days. 03/15/21 23:10 Urine, Random Legionella Antigen - Final 03/15/21 23:10 Urine, Random Streptococcus pneumoniae Antigen (M - Final 03/15/21 18:50 Nasal Secretion SARS-CoV-2 Antigen (Rapid) - Final SARS-CoV-2 (COVID 19) Rhythm Strip Rhythm Strip: Sinus Tach Rate: 118 Ectopy: None Physical Exam Const alert and no apparent distress General Appearance: cooperative HEENT normocephalic and head/scalp atraumatic Eyes PERRL, EOMs intact bilaterally and conjunctivae normal Neck supple General: trachea midline Chest inspection of chest normal Resp Auscultation: diminished lung sounds Cardio regular rate and regular rhythm GI normal to inspection, nondistended, normoactive bowel sounds Extremity no clubbing, cyanosis or edema Skin no rashes or lesions noted Neuro CN's II-XII intact bilaterally, moves all extremities and no focal motor deficits Psych Mood & Affect: flat affect Charges/Coding Visit Charges Inpatient E&M: 83195 Subs Hosp L2
[2021-03-26] MEDS: Escitalopram Oxalate 10 MG Tablet PO (21:14)
[2021-03-27] VITALS (24 sets, daily range): BP systolic 93–121; BP diastolic 61–74; PULSE 71–91; RESP 17–22; TEMP 36.4–36.7; O2SAT 82–97
[2021-03-27] MEDS: Phenytoin Na 100 MG Capsule PO ×3 (05:09→21:41)
[2021-03-27] MEDS: LORazepam 0.5 MG Tablet PO ×3 (05:09→21:41)
[2021-03-27 05:49] LABS: Absolute Lymphocyte Count 1.12 X10^3/uL (0.83-4.51); Absolute Neutrophil Count 5.7 X10^3/uL (2.0-7.7); Basophil# 0.07 X10^3/uL; Basophil% 0.8 % (0-1); Eosinophil# 0.44 X10^3/uL; Eosinophils% 5.3 % (0-5); Hematocrit 38.3 % (40-54); Hemoglobin 11.6 g/dL (13.0-16.5); Lymphocyte # 1.12 X10^3/ul (0.83-4.51); Lymphocyte % 13.4 % (19-41); Mean Corp Hgb Conc 30.3 g/dL (32-36); Mean Corpuscular Hgb 31.4 pg (27.0-32.0); Mean Corpuscular Volume 103.8 fL (80-94); Mean Platelet Vol. 12.2 fl (6.2-12.0); Monocyte% 9.6 % (0-10); NRBC Flagged by Analyzer 0 % (0-5); Neutrophil % 68.3 % (47-70); Platelet Count 236 K/mm3 (150-450); RBC Distribution Width CV 13.9 % (11.6-14.6); RBC Distribution Width SD 52.8 fl (35.1-43.9); Red Blood Count 3.69 M/mm3 (4.6-6.2); White Blood Count 8.4 K/mm3 (4.4-11.0)
[2021-03-27 06:06] LABS: International Normalized Ratio 1.7; Prothrombin Time (Protime)PT. 19.7 SECONDS (11.7-14.9)
[2021-03-27 07:13] LABS: BUN 36 mg/dL (7-18); BUN/Creat Ratio 36.4 RATIO (10-20); Calcium,Total 8.4 mg/dL (8.5-10.1); Chloride 100 mmol/L (98-107); Creatinine, Serum 0.99 mg/dL (0.70-1.30); EST Glomerular Filtration Rate 83 mL/min (>60); Est Glom Filt Rate - Afr Amer 101 mL/min (>60); Estimated Creatinine Clearance 83.32 ml/min; Glucose 99 mg/dL (74-106); Potassium 4.4 mmol/L (3.5-5.1); Sodium Level 140 mmol/L (136-145)
[2021-03-27 07:14] LABS: Anion Gap 2 (5-15)
[2021-03-27] MEDS: Ipratropium/Albuterol Sulfate 3 ML AMPUL.NEB INHALATION ×3 (07:14→19:17)
--- NOTE | 2021-03-27 07:22 | PN.HOSP_ITS ---
Objective Data Objective Data Vital Signs: Vital Signs Temp Pulse Resp BP Pulse Ox 97.6 F L 83 22 H 101/71 95 03/27/21 05:11 03/27/21 07:14 03/27/21 07:14 03/27/21 05:11 03/27/21 07:14 Oxygen Flow Rate (L/min) 5 Oxygen Delivery Method Nasal Cannula Weight: 86.7 kg Body Mass Index (BMI) 27.1 Intake & Output: Intake and Output for Last 24 Hours 03/25/21 03/26/21 03/27/21 23:59 23:59 23:59 Intake Total 250 / 250 240 / 240 300 / 300 Output Total 850 / 850 200 / 200 200 / 200 Balance -600 / -600 40 / 40 100 / 100 Lab / Micro Data Result Diagrams: 03/27/21 04:54 03/27/21 04:54 Labs: Laboratory Results - last 24 hr 03/27/21 04:54: PT 19.7 H, INR 1.7 03/27/21 04:54: WBC 8.4, RBC 3.69 L, Hgb 11.6 L, Hct 38.3 L, MCV 103.8 H, MCH 31.4, MCHC 30.3 L, RDW Std Deviation 52.8 H, RDW Coeff of Joseluis 13.9, Plt Count 236, MPV 12.2 H, Immature Gran % (Auto) 2.600 H, Neut % (Auto) 68.3, Lymph % (Auto) 13.4 L, [place] % (Auto) 9.6, Eos % (Auto) 5.3 H, Baso % (Auto) 0.8, Absolute Neuts (auto) 5.7, Absolute Lymphs (auto) 1.12, Nucleated RBC % 0 03/27/21 04:54: Sodium 140, Potassium 4.4, Chloride 100, Carbon Dioxide 38.0 H, Anion Gap 2 L, BUN 36 H, Creatinine 0.99, Estim Creat Clear Calc 83.32, Est GFR (MDRD) Af Amer 101, Est GFR (MDRD) Non-Af 83, BUN/Creatinine Ratio 36.4 H, Glucose 99, Calcium 8.4 L Micro: Microbiology 03/15/21 19:05 Blood Culture (Wb) - Left Wrist Bacteria Detection (PCR) - Final Coag Negative Staph 03/15/21 19:05 Blood Culture (Wb) - Left Wrist Blood Culture - Final Coag Negative Staph 03/15/21 18:53 Blood Culture (Wb) #2 - Anticubital Left Blood Culture - Final No growth in 5 days. 03/15/21 23:10 Urine, Random Legionella Antigen - Final 03/15/21 23:10 Urine, Random Streptococcus pneumoniae Antigen (M - Final 03/15/21 18:50 Nasal Secretion SARS-CoV-2 Antigen (Rapid) - Final SARS-CoV-2 (COVID 19) Rhythm Strip Rhythm Strip: Sinus Tach Rate: 118 Ectopy: None Physical Exam Narrative GENERAL: cooperative HEENT: Atraumatic; EYES; Anicteric, Normal Conjunctiva NECK; supple, normal thyroid, RESPIRATORY: Diminished to auscultation CARDIOVASCULAR: Regular S1 S2, GI: soft, normoactive bowel sounds, : No Renal angle tenderness; EXTREMITIES: No edema, no clubbing, MUSCULOSKELETAL: no muscle waisting NEURO: Awake; no lateralizing signs. SKIN: No Rash PSYCH; Flat affect Const alert, oriented x3 and no apparent distress Constitutional Narrative: flat affect, cooperative General Appearance: cooperative Exam Limitations: no limitations HEENT normocephalic, head/scalp atraumatic and moist oral mucous membranes Eyes PERRL, EOMs intact bilaterally and conjunctivae normal Neck no lymphadenopathy, supple and no JVD Resp normal respiratory effort, no retractions and no use of accessory muscles Resp Narrative: Diminished breath sounds bibasilarly. No wheezes or crackles. On 3 L of oxygen. Auscultation: diminished lung sounds; Negative for crackles, rales, rhonchi or wheezes Cardio regular rate, regular rhythm, S1 normal heart sound, S2 normal heart sound and no murmurs Cardio Narrative: mechanical aortic valve click GI normal to inspection, nondistended, normoactive bowel sounds, soft to palpation, non-tender and non-distended; Negative for hepatosplenomegaly Extremity normal to inspection, full ROM and no clubbing, cyanosis or edema Skin no rashes or lesions noted Neuro oriented x3, CN's II-XII intact bilaterally, moves all extremities, no focal motor deficits and no sensory deficits noted Sensorium / Orientation: awake and alert Psych affect normal Appearance: appropriate Assessment & Plan Assessment/Plan (1) Acute and chronic respiratory failure with hypoxia: (2) COVID-19 virus infection: PLAN: Patient is a 55-year-old gentleman admitted with progressive shortness of breath diagnosed with acute hypoxic respiratory failure secondary to Covid pneumonia 1. Acute on chronic hypoxic respiratory failure ?Secondary to Covid pneumonia patient completed course of Decadron as well as remdesivir. Patient still remains on supplemental oxygen currently at 9 L flow per minute via nasal cannula -03/26/2021;Patient seen currently down to 7 L flow per minute of oxygen. 2. Chronic hypoxic respiratory failure ?Secondary to COPD, patient is on 5 L flow per minute continuous at baseline 3. Hypertension - Blood pressure controlled, home medications continued with dose adjustment as needed 4. Seizure disorder ?Discontinue patient antiseizure medications 5. Valvular heart disease ?With history of mechanical aortic valve prosthesis patient is on Coumadin. INR is 2.0?subtherapeutic (Range 2.5-3.5) -03/26/2021; INR down to 1.8 additional dose of Coumadin given repeat INR ordered for a.m. 6. Depression ?Continue patient home regimen 7. GERD ?On PPI 8. Physical deconditioning - Requested for PT OT eval and certified social workers in health care to assist with discharge planning 9. DVT prophylaxis ?On Coumadin
--- NOTE | 2021-03-27 07:23 | PN.HOSP_ITS ---
Subjective Subjective Patient seen appears comfortable at rest. Apparently ripped off his oxygen level resulting in transient desaturation. Plan is for patient to be discharged home once he stabilizes 5 L of oxygen which he is on at home Objective Data Objective Data Vital Signs: Vital Signs Temp Pulse Resp BP Pulse Ox 97.6 F L 83 22 H 101/71 95 03/27/21 05:11 03/27/21 07:14 03/27/21 07:14 03/27/21 05:11 03/27/21 07:14 Oxygen Flow Rate (L/min) 5 Oxygen Delivery Method Nasal Cannula Weight: 86.7 kg Body Mass Index (BMI) 27.1 Intake & Output: Intake and Output for Last 24 Hours 03/25/21 03/26/21 03/27/21 23:59 23:59 23:59 Intake Total 250 / 250 240 / 240 300 / 300 Output Total 850 / 850 200 / 200 200 / 200 Balance -600 / -600 40 / 40 100 / 100 Lab / Micro Data Result Diagrams: 03/27/21 04:54 03/27/21 04:54 Labs: Laboratory Results - last 24 hr 03/27/21 04:54: PT 19.7 H, INR 1.7 03/27/21 04:54: WBC 8.4, RBC 3.69 L, Hgb 11.6 L, Hct 38.3 L, MCV 103.8 H, MCH 31.4, MCHC 30.3 L, RDW Std Deviation 52.8 H, RDW Coeff of Joseluis 13.9, Plt Count 236, MPV 12.2 H, Immature Gran % (Auto) 2.600 H, Neut % (Auto) 68.3, Lymph % (Auto) 13.4 L, [place] % (Auto) 9.6, Eos % (Auto) 5.3 H, Baso % (Auto) 0.8, Absolute Neuts (auto) 5.7, Absolute Lymphs (auto) 1.12, Nucleated RBC % 0 03/27/21 04:54: Sodium 140, Potassium 4.4, Chloride 100, Carbon Dioxide 38.0 H, Anion Gap 2 L, BUN 36 H, Creatinine 0.99, Estim Creat Clear Calc 83.32, Est GFR (MDRD) Af Amer 101, Est GFR (MDRD) Non-Af 83, BUN/Creatinine Ratio 36.4 H, Glucose 99, Calcium 8.4 L Micro: Microbiology 03/15/21 19:05 Blood Culture (Wb) - Left Wrist Bacteria Detection (PCR) - Final Coag Negative Staph 03/15/21 19:05 Blood Culture (Wb) - Left Wrist Blood Culture - Final Coag Negative Staph 03/15/21 18:53 Blood Culture (Wb) #2 - Anticubital Left Blood Culture - Final No growth in 5 days. 03/15/21 23:10 Urine, Random Legionella Antigen - Final 03/15/21 23:10 Urine, Random Streptococcus pneumoniae Antigen (M - Final 03/15/21 18:50 Nasal Secretion SARS-CoV-2 Antigen (Rapid) - Final SARS-CoV-2 (COVID 19) Rhythm Strip Rhythm Strip: Sinus Tach Rate: 118 Ectopy: None Physical Exam Narrative GENERAL: cooperative HEENT: Atraumatic; EYES; Anicteric, Normal Conjunctiva NECK; supple, normal thyroid, RESPIRATORY: Diminished to auscultation CARDIOVASCULAR: Regular S1 S2, GI: soft, normoactive bowel sounds, : No Renal angle tenderness; EXTREMITIES: No edema, no clubbing, MUSCULOSKELETAL: no muscle waisting NEURO: Awake; no lateralizing signs. SKIN: No Rash PSYCH; Flat affect Assessment & Plan Assessment/Plan (1) Acute and chronic respiratory failure with hypoxia: (2) COVID-19 virus infection: PLAN: Patient is a 55-year-old gentleman admitted with progressive shortne ss of breath diagnosed with acute hypoxic respiratory failure secondary to Covid pneumonia 1. Acute on chronic hypoxic respiratory failure ?Secondary to Covid pneumonia patient completed course of Decadron as well as remdesivir. Patient still remains on supplemental oxygen currently at 9 L flow per minute via nasal cannula -03/26/2021;Patient seen currently down to 7 L flow per minute of oxygen. ?03/27/2021; Patient seen appears comfortable at rest. Apparently ripped off his oxygen level resulting in transient desaturation. Plan is for patient to be discharged home once he stabilizes 5 L of oxygen which he is on at home 2. Chronic hypoxic respiratory failure ?Secondary to COPD, patient is on 5 L flow per minute continuous at baseline 3. Hypertension - Blood pressure controlled, home medications continued with dose adjustment as needed 4. Seizure disorder ?Discontinue patient antiseizure medications 5. Valvular heart disease ?With history of mechanical aortic valve prosthesis patient is on Coumadin. INR is 2.0?subtherapeutic (Range 2.5-3.5) -03/26/2021; INR down to 1.8 additional dose of Coumadin given repeat INR ordered for a.m. -03/27/2021; INR down to 1.7. Patient started on therapeutic Lovenox was waiting for an INR to reach the therapeutic range 6. Depression ?Continue patient home regimen 7. GERD ?On PPI 8. Physical deconditioning - Requested for PT OT eval and geriatric social worker to assist with discharge planning 9. DVT prophylaxis ?On Coumadin Charges/Coding Visit Charges Inpatient E&M: 16523 Subs Hosp L2
--- NOTE | 2021-03-27 09:10 | NURSING ---
aware per charge account clerk pt being transported to OR
[2021-03-27] MEDS: Aspirin E.C. 81 MG Tablet PO (10:19)
[2021-03-27] MEDS: Ferrous Sulfate 325 MG Tablet PO ×2 (10:19→21:42)
[2021-03-27] MEDS: Vitamin B Comp W-C Capsule 1 CAP PO (10:19)
[2021-03-27] MEDS: Pantoprazole Sodium 40 MG Tablet PO (10:20)
[2021-03-27] MEDS: Furosemide 20 MG Tablet PO (10:20)
[2021-03-27] MEDS: Metoprolol Tartrate 25 MG Tablet 37.5 MG PO ×2 (10:20→21:42)
[2021-03-27] MEDS: Multivitamins,Therapeutic Tablet 1 TABLET PO (10:20)
[2021-03-27] MEDS: buPROPion (SR) 150 MG Tablet.SA PO (10:20)
[2021-03-27] MEDS: Enoxaparin 80 MG/0.8 ML Syringe SC ×2 (11:35→21:40)
--- NOTE | 2021-03-27 12:04 | PN.CC_ITS ---
Assessment & Plan Assessment/Plan (1) Acute and chronic respiratory failure with hypoxia: (2) COVID-19 virus infection: PLAN: RECOMMENDATIONS: 1. Wean supplemental oxygen to maintain saturations at or above 90%. 2. Continue Coumadin per home regimen. Check INR daily. 3. Encourage incentive spirometer use and mobilize patient as tolerated. 4. Strongly recommend BiPAP support with naps and nightly to assist with alveolar recruitment. 5. Continue diuretics as needed to maintain euvolemic state. 6. Once the patient can ambulate on 6 L/min or less of oxygen he can be discharged home. 7. Outpatient pulmonary follow-up 2 to 4 weeks post discharge. 8. Will sign off. Please call with any additional questions. IMPRESSIONS: 1. Acute on chronic hypoxemic respiratory failure secondary to COVID-19 pneumonia The patient has known end-stage COPD and is currently on a triple therapy inhaler regimen along with a baseline oxygen requirement of 3 to 5 L/min. He presented with worsening dyspnea and hypoxemia. The patient is vaccinated but not yet boosted. Plan to continue supplemental oxygen via nasal cannula throughout the day with BiPAP support at night as tolerated. Continue supportive measures including Decadron and bronchodilators. Continue Coumadin per outpatient regimen and check INR daily. Cultures are showing no growth at this time. Continue diuretics as needed to maintain euvolemic state. 2. Valvular heart disease/hypertension/hyperlipidemia/anemia/seizure disorder/prior tobacco dependency/depression Complicates care, management, recovery and prognosis. Continue home medications as indicated. This note was generated with [employer] dictation software. It may contain incorrect words, spelling, and punctuation that were not noted in checking the note before signing. Subjective Subjective The patient was seen and examined at the bedside this morning. Events from the last 24 hours have been reviewed. The patient is currently afebrile, hemodynamically stable and maintaining appropriate oxygen saturations on 5 L/min. The patient is currently documented to be overall net -2.1 L for the hospitalization. INR is subtherapeutic at 1.7. Creatinine is stable. Objective Data Objective Data The patient's most recent lab work, culture data and imaging studies have all been personally reviewed. Rapid coronavirus antigen testing was positive on March 15. Strep and urine Legionella antigens were negative. Vital Signs: Vital Signs Temp Pulse Resp BP Pulse Ox 98.1 F 91 18 121/64 H 92 03/27/21 10:31 03/27/21 10:38 03/27/21 10:31 03/27/21 10:31 03/27/21 10:31 Oxygen Flow Rate (L/min) [ 7 AMBULATING with Oxygen #3] Oxygen Flow Rate (L/min) [ 6 AMBULATING with Oxygen #2] Oxygen Flow Rate (L/min) [ 5 AMBULATING with Oxygen #1] Oxygen Flow Rate (L/min) [At 5 REST with Oxygen] Oxygen Flow Rate (L/min) 7 Oxygen Delivery Method High Flow Weight: 86.7 kg Body Mass Index (BMI) 27.1 Intake & Output: Intake and Output for Last 24 Hours 03/25/21 03/26/21 03/27/21 23:59 23:59 23:59 Intake Total 250 / 250 240 / 240 300 / 300 Output Total 850 / 850 200 / 200 200 / 200 Balance -600 / -600 40 / 40 100 / 100 Lab / Micro Data Attestation: I reviewed the patient's lab results. Result Diagrams: 03/28/21 04:55 03/28/21 04:55 Labs: Laboratory Results - last 24 hr 03/27/21 04:54: PT 19.7 H, INR 1.7 03/27/21 04:54: WBC 8.4, RBC 3.69 L, Hgb 11.6 L, Hct 38.3 L, MCV 103.8 H, MCH 31.4, MCHC 30.3 L, RDW Std Deviation 52.8 H, RDW Coeff of Joseluis 13.9, Plt Count 236, MPV 12.2 H, Immature Gran % (Auto) 2.600 H, Neut % (Auto) 68.3, Lymph % (Auto) 13.4 L, [place] % (Auto) 9.6, Eos % (Auto) 5.3 H, Baso % (Auto) 0.8, Absolute Neuts (auto) 5.7, Absolute Lymphs (auto) 1.12, Nucleated RBC % 0 03/27/21 04:54: Sodium 140, Potassium 4.4, Chloride 100, Carbon Dioxide 38.0 H, Anion Gap 2 L, BUN 36 H, Creatinine 0.99, Estim Creat Clear Calc 83.32, Est GFR (MDRD) Af Amer 101, Est GFR (MDRD) Non-Af 83, BUN/Creatinine Ratio 36.4 H, Glucose 99, Calcium 8.4 L Micro: Microbiology 03/15/21 19:05 Blood Culture (Wb) - Left Wrist Bacteria Detection (PCR) - Final Coag Negative Staph 03/15/21 19:05 Blood Culture (Wb) - Left Wrist Blood Culture - Final Coag Negative Staph 03/15/21 18:53 Blood Culture (Wb) #2 - Anticubital Left Blood Culture - Final No growth in 5 days. 03/15/21 23:10 Urine, Random Legionella Antigen - Final 03/15/21 23:10 Urine, Random Streptococcus pneumoniae Antigen (M - Final 03/15/21 18:50 Nasal Secretion SARS-CoV-2 Antigen (Rapid) - Final SARS-CoV-2 (COVID 19) Rhythm Strip Rhythm Strip: Sinus Tach Rate: 118 Ectopy: None Physical Exam Const alert and no apparent distress General Appearance: cooperative HEENT normocephalic and head/scalp atraumatic Eyes PERRL, EOMs intact bilaterally and conjunctivae normal Neck supple General: trachea midline Chest inspection of chest normal Resp Auscultation: diminished lung sounds Cardio regular rate and regular rhythm GI normal to inspection, nondistended, normoactive bowel sounds Extremity no clubbing, cyanosis or edema Skin no rashes or lesions noted Neuro CN's II-XII intact bilaterally, moves all extremities and no focal motor deficits Psych Mood & Affect: flat affect Charges/Coding Visit Charges Inpatient E&M: 21232 Subs Hosp L2
[2021-03-27] MEDS: Escitalopram Oxalate 10 MG Tablet PO (21:42)
--- NOTE | 2021-03-27 22:25 | CPS ---
PATIENT REFUSED BIPAP.
[2021-03-28] VITALS (21 sets, daily range): BP systolic 105–124; BP diastolic 61–78; PULSE 74–94; RESP 12–24; TEMP 36.6–36.8; O2SAT 87–96
[2021-03-28] MEDS: Albuterol 2.5 MG/3 ML VIAL.NEB. INHALATION (02:00)
--- NOTE | 2021-03-28 02:02 | CPS ---
patient recieved prn treatment per patient request due to sob.
[2021-03-28 05:43] LABS: Absolute Lymphocyte Count 0.95 X10^3/uL (0.83-4.51); Absolute Neutrophil Count 5.5 X10^3/uL (2.0-7.7); Basophil# 0.03 X10^3/uL; Basophil% 0.4 % (0-1); Eosinophil# 0.43 X10^3/uL; Eosinophils% 5.5 % (0-5); Hematocrit 36.1 % (40-54); Lymphocyte # 0.95 X10^3/ul (0.83-4.51); Lymphocyte % 12.3 % (19-41); Mean Corp Hgb Conc 30.5 g/dL (32-36); Mean Corpuscular Hgb 31.8 pg (27.0-32.0); Mean Corpuscular Volume 104.3 fL (80-94); NRBC Flagged by Analyzer 0 % (0-5); Platelet Count 184 K/mm3 (150-450); RBC Distribution Width CV 13.9 % (11.6-14.6); RBC Distribution Width SD 52.5 fl (35.1-43.9); Red Blood Count 3.46 M/mm3 (4.6-6.2); White Blood Count 7.8 K/mm3 (4.4-11.0)
[2021-03-28] MEDS: LORazepam 0.5 MG Tablet PO ×3 (05:58→21:55)
[2021-03-28] MEDS: Phenytoin Na 100 MG Capsule PO ×3 (05:58→21:55)
[2021-03-28 06:08] LABS: International Normalized Ratio 2.1; Prothrombin Time (Protime)PT. 22.5 SECONDS (11.7-14.9)
[2021-03-28 06:09] LABS: Anion Gap 2 (5-15); BUN 30 mg/dL (7-18); BUN/Creat Ratio 32.2 RATIO (10-20); Calcium,Total 8.3 mg/dL (8.5-10.1); Chloride 101 mmol/L (98-107); Creatinine, Serum 0.93 mg/dL (0.70-1.30); EST Glomerular Filtration Rate 89 mL/min (>60); Est Glom Filt Rate - Afr Amer 108 mL/min (>60); Estimated Creatinine Clearance 88.69 ml/min; Glucose 92 mg/dL (74-106); Potassium 4.1 mmol/L (3.5-5.1); Sodium Level 142 mmol/L (136-145)
--- NOTE | 2021-03-28 07:25 | PCM.PN.HOSP ---
Subjective Subjective Patient seen appears frail. Remains on supplemental oxygen at 6-7 L/min Objective Data Objective Data Vital Signs: Vital Signs Temp Pulse Resp BP Pulse Ox 97.9 F 74 20 H 110/61 90 03/28/21 03:35 03/28/21 03:59 03/28/21 03:35 03/28/21 03:35 03/28/21 07:06 Oxygen Flow Rate (L/min) [ 7 AMBULATING with Oxygen #3] Oxygen Flow Rate (L/min) [ 6 AMBULATING with Oxygen #2] Oxygen Flow Rate (L/min) [ 7 AMBULATING with Oxygen #1] Oxygen Flow Rate (L/min) [At 5 REST with Oxygen] Oxygen Flow Rate (L/min) 6 Oxygen Delivery Method High Flow Weight: 86 kg Body Mass Index (BMI) 27.1 Intake & Output: Intake and Output for Last 24 Hours 03/26/21 03/27/21 03/28/21 23:59 23:59 23:59 Intake Total 240 / 240 840 / 990 200 / 200 Output Total 200 / 200 550 / 550 Balance 40 / 40 290 / 440 200 / 200 Lab / Micro Data Result Diagrams: 03/28/21 04:55 03/28/21 04:55 Labs: Laboratory Results - last 24 hr 03/28/21 04:55: PT 22.5 H, INR 2.1 03/28/21 04:55: WBC 7.8, RBC 3.46 L, Hgb 11.0 L, Hct 36.1 L, MCV 104.3 H, MCH 31.8, MCHC 30.5 L, RDW Std Deviation 52.5 H, RDW Coeff of Joseluis 13.9, Plt Count 184, MPV 12.0, Immature Gran % (Auto) 1.800 H, Neut % (Auto) 71.0 H, Lymph % (Auto) 12.3 L, [place] % (Auto) 9.0, Eos % (Auto) 5.5 H, Baso % (Auto) 0.4, Absolute Neuts (auto) 5.5, Absolute Lymphs (auto) 0.95, Nucleated RBC % 0 03/28/21 04:55: Sodium 142, Potassium 4.1, Chloride 101, Carbon Dioxide 39.0 H, Anion Gap 2 L, BUN 30 H, Creatinine 0.93, Estim Creat Clear Calc 88.69, Est GFR (MDRD) Af Amer 108, Est GFR (MDRD) Non-Af 89, BUN/Creatinine Ratio 32.2 H, Glucose 92, Calcium 8.3 L Micro: Microbiology 03/15/21 19:05 Blood Culture (Wb) - Left Wrist Bacteria Detection (PCR) - Final Coag Negative Staph 03/15/21 19:05 Blood Culture (Wb) - Left Wrist Blood Culture - Final Coag Negative Staph 03/15/21 18:53 Blood Culture (Wb) #2 - Anticubital Left Blood Culture - Final No growth in 5 days. 03/15/21 23:10 Urine, Random Legionella Antigen - Final 03/15/21 23:10 Urine, Random Streptococcus pneumoniae Antigen (M - Final 03/15/21 18:50 Nasal Secretion SARS-CoV-2 Antigen (Rapid) - Final SARS-CoV-2 (COVID 19) Rhythm Strip Rhythm Strip: Sinus Tach Rate: 118 Ectopy: None Physical Exam Narrative GENERAL: cooperative HEENT: Atraumatic; EYES; Anicteric, Normal Conjunctiva NECK; supple, normal thyroid, RESPIRATORY: Diminished to auscultation CARDIOVASCULAR: Regular S1 S2, GI: soft, normoactive bowel sounds, : No Renal angle tenderness; EXTREMITIES: No edema, no clubbing, MUSCULOSKELETAL: no muscle waisting NEURO: Awake; no lateralizing signs. SKIN: No Rash PSYCH; Flat affect Assessment & Plan Assessment/Plan (1) Acute and chronic respiratory failure with hypoxia: (2) COVID-19 virus infection: PLAN: Patient is a 55-year-old gentleman admitted with progressive shortness of breath diagnosed with acute hypoxic respiratory failure secondary to Covid pneumonia 1. Acute on chronic hypoxic respiratory failure ?Secondary to Covid pneumonia patient completed course of Decadron as well as remdesivir. Patient still remains on supplemental oxygen currently at 9 L flow per minute via nasal cannula -03/26/2021;Patient seen currently down to 7 L flow per minute of oxygen. ?03/27/2021; Patient seen appears comfortable at rest. Apparently ripped off his oxygen level resulting in transient desaturation. Plan is for patient to be discharged home once he stabilizes 5 L of oxygen which he is on at home ?03/28/2021; Patient seen appears frail. Remains on supplemental oxygen at 6-7 L/min 2. Chronic hypoxic respiratory failure ?Secondary to COPD, patient is on 5 L flow per minute continuous at baseline 3. Hypertension - Blood pressure controlled, home medications continued with dose adjustment as needed 4. Seizure disorder ?Discontinue patient antiseizure medications 5. Valvular heart disease ?With history of mechanical aortic valve prosthesis patient is on Coumadin. INR is 2.0?subtherapeutic (Range 2.5-3.5) -03/26/2021; INR down to 1.8 additional dose of Coumadin given repeat INR ordered for a.m. -03/27/2021; INR down to 1.7. Patient started on therapeutic Lovenox was waiting for an INR to reach the therapeutic range -03/28/2021; INR up to 2.1, will continue Lovenox to therapeutic range is achieved 6. Depression ?Continue patient home regimen 7. GERD ?On PPI 8. Physical deconditioning - Requested for PT OT eval and child welfare social worker to assist with discharge planning 9. DVT prophylaxis ?On Coumadin Charges/Coding Visit Charges Inpatient E&M: 23662 Subs Hosp L2
[2021-03-28] MEDS: Aspirin E.C. 81 MG Tablet PO (07:37)
[2021-03-28] MEDS: Vitamin B Comp W-C Capsule 1 CAP PO (07:37)
[2021-03-28] MEDS: Multivitamins,Therapeutic Tablet 1 TABLET PO (07:37)
[2021-03-28] MEDS: Metoprolol Tartrate 25 MG Tablet 37.5 MG PO ×2 (07:38→21:55)
[2021-03-28] MEDS: Pantoprazole Sodium 40 MG Tablet PO (07:38)
[2021-03-28] MEDS: Furosemide 20 MG Tablet PO (07:38)
[2021-03-28] MEDS: buPROPion (SR) 150 MG Tablet.SA PO (07:38)
[2021-03-28] MEDS: Ferrous Sulfate 325 MG Tablet PO ×2 (07:38→21:55)
[2021-03-28] MEDS: Enoxaparin 80 MG/0.8 ML Syringe SC ×2 (07:38→21:55)
[2021-03-28] MEDS: Ipratropium/Albuterol Sulfate 3 ML AMPUL.NEB INHALATION ×3 (07:45→19:51)
--- NOTE | 2021-03-28 09:22 | CASEMGMT ---
QUIN ROLLINS made aware pt did not work with therapy yesterday. QUIN ROLLINS in to pt room. Discussed dc planning with patient again. Pt states he wants to return home. Made pt aware he needs to work with therapy to show that he is safe to return home. Pt states he will. He states he threw the walker at the therapist because he was woke up to exercise. Pt now agreeable to therapy. Notified charge nurse. QUIN ROLLINS to follow.
[2021-03-28] MEDS: Escitalopram Oxalate 10 MG Tablet PO (21:55)
[2021-03-29] VITALS (16 sets, daily range): BP systolic 102–119; BP diastolic 58–69; PULSE 74–88; RESP 18–28; TEMP 36.3–36.8; O2SAT 92–98
[2021-03-29] MEDS: Ipratropium/Albuterol Sulfate 3 ML AMPUL.NEB INHALATION ×3 (05:43→20:25)
[2021-03-29 05:55] LABS: Absolute Neutrophil Count 4.5 X10^3/uL (2.0-7.7); Basophil# 0.04 X10^3/uL; Basophil% 0.6 % (0-1); Eosinophil# 0.38 X10^3/uL; Eosinophils% 5.7 % (0-5); Hematocrit 36.3 % (40-54); Hemoglobin 10.8 g/dL (13.0-16.5); Mean Corp Hgb Conc 29.8 g/dL (32-36); Mean Corpuscular Hgb 31.1 pg (27.0-32.0); Mean Corpuscular Volume 104.6 fL (80-94); Mean Platelet Vol. 12.6 fl (6.2-12.0); Monocyte# 0.62 X10^3/uL; Monocyte% 9.3 % (0-10); NRBC Flagged by Analyzer 0 % (0-5); Neutrophil # 4.52 X10^3/uL (2.7-7.7); Neutrophil % 67.9 % (47-70); Platelet Count 173 K/mm3 (150-450); RBC Distribution Width CV 13.8 % (11.6-14.6); Red Blood Count 3.47 M/mm3 (4.6-6.2); White Blood Count 6.7 K/mm3 (4.4-11.0)
[2021-03-29] MEDS: LORazepam 0.5 MG Tablet PO ×3 (06:11→20:46)
[2021-03-29] MEDS: Phenytoin Na 100 MG Capsule PO ×3 (06:11→20:45)
[2021-03-29 06:25] LABS: International Normalized Ratio 2.6; Prothrombin Time (Protime)PT. 26.8 SECONDS (11.7-14.9)
[2021-03-29 06:40] LABS: Anion Gap 3 (5-15); BUN 32 mg/dL (7-18); BUN/Creat Ratio 31.7 RATIO (10-20); Calcium,Total 8.2 mg/dL (8.5-10.1); Chloride 102 mmol/L (98-107); Creatinine, Serum 1.01 mg/dL (0.70-1.30); EST Glomerular Filtration Rate 81 mL/min (>60); Est Glom Filt Rate - Afr Amer 98 mL/min (>60); Estimated Creatinine Clearance 81.67 ml/min; Glucose 81 mg/dL (74-106); Potassium 4.5 mmol/L (3.5-5.1); Sodium Level 139 mmol/L (136-145)
--- NOTE | 2021-03-29 07:35 | PCM.PN.HOSP ---
Subjective Subjective Patient seen currently dyspneic at rest currently on oxygen via nasal cannula with flow between 8 and 9 L/min. Did explain to patient on the need to stay in the hospital for couple more days prior to being discharged home Objective Data Objective Data Vital Signs: Vital Signs Temp Pulse Resp BP Pulse Ox 98.2 F 76 28 H 108/69 95 03/29/21 02:00 03/29/21 07:26 03/29/21 05:44 03/29/21 02:00 03/29/21 07:15 Oxygen Flow Rate (L/min) [ 7 AMBULATING with Oxygen #3] Oxygen Flow Rate (L/min) [ 6 AMBULATING with Oxygen #2] Oxygen Flow Rate (L/min) [ 7 AMBULATING with Oxygen #1] Oxygen Flow Rate (L/min) [At 5 REST with Oxygen] Oxygen Flow Rate (L/min) 7 Oxygen Delivery Method Nasal Cannula Weight: 85 kg Body Mass Index (BMI) 27.1 Intake & Output: Intake and Output for Last 24 Hours 03/27/21 03/28/21 03/29/21 23:59 23:59 23:59 Intake Total 840 / 990 500 / 500 300 / 300 Output Total 550 / 550 400 / 400 200 / 200 Balance 290 / 440 100 / 100 100 / 100 Lab / Micro Data Result Diagrams: 03/29/21 04:56 03/29/21 04:56 Labs: Laboratory Results - last 24 hr 03/29/21 04:56: PT 26.8 H, INR 2.6 03/29/21 04:56: WBC 6.7, RBC 3.47 L, Hgb 10.8 L, Hct 36.3 L, MCV 104.6 H, MCH 31.1, MCHC 29.8 L, RDW Std Deviation 52.0 H, RDW Coeff of Joseluis 13.8, Plt Count 173, MPV 12.6 H, Immature Gran % (Auto) 1.500 H, Neut % (Auto) 67.9, Lymph % (Auto) 15.0 L, [place] % (Auto) 9.3, Eos % (Auto) 5.7 H, Baso % (Auto) 0.6, Absolute Neuts (auto) 4.5, Absolute Lymphs (auto) 1.00, Nucleated RBC % 0 03/29/21 04:56: Sodium 139, Potassium 4.5, Chloride 102, Carbon Dioxide 34.0 H, Anion Gap 3 L, BUN 32 H, Creatinine 1.01, Estim Creat Clear Calc 81.67, Est GFR (MDRD) Af Amer 98, Est GFR (MDRD) Non-Af 81, BUN/Creatinine Ratio 31.7 H, Glucose 81, Calcium 8.2 L Micro: Microbiology 03/15/21 19:05 Blood Culture (Wb) - Left Wrist Bacteria Detection (PCR) - Final Coag Negative Staph 03/15/21 19:05 Blood Culture (Wb) - Left Wrist Blood Culture - Final Coag Negative Staph 03/15/21 18:53 Blood Culture (Wb) #2 - Anticubital Left Blood Culture - Final No growth in 5 days. 03/15/21 23:10 Urine, Random Legionella Antigen - Final 03/15/21 23:10 Urine, Random Streptococcus pneumoniae Antigen (M - Final 03/15/21 18:50 Nasal Secretion SARS-CoV-2 Antigen (Rapid) - Final SARS-CoV-2 (COVID 19) Rhythm Strip Rhythm Strip: Sinus Tach Rate: 118 Ectopy: None Physical Exam Narrative GENERAL: cooperative HEENT: Atraumatic; EYES; Anicteric, Normal Conjunctiva NECK; supple, normal thyroid, RESPIRATORY: Diminished to auscultation CARDIOVASCULAR: Regular S1 S2, GI: soft, normoactive bowel sounds, : No Renal angle tenderness; EXTREMITIES: No edema, no clubbing, MUSCULOSKELETAL: no muscle waisting NEURO: Awake; no lateralizing signs. SKIN: No Rash PSYCH; Flat affect Assessment & Plan Assessment/Plan (1) Acute and chronic respiratory failure with hypoxia: (2) COVID-19 virus infection: PLAN: Patient is a 55-year-old gentleman admitted with progressive shortness of breath diagnosed with acute hypoxic respiratory failure secondary to Covid pneumonia 1. Acute on chronic hypoxic respiratory failure ?Secondary to Covid pneumonia patient completed course of Decadron as well as remdesivir. Patient still remains on supplemental oxygen currently at 9 L flow per minute via nasal cannula -03/26/2021;Patient seen currently down to 7 L flow per minute of oxygen. ?03/27/2021; Patient seen appears comfortable at rest. Apparently ripped off his oxygen level resulting in transient desaturation. Plan is for patient to be discharged home once he stabilizes 5 L of oxygen which he is on at home ?03/28/2021; Patient seen appears frail. Remains on supplemental oxygen at 6-7 L/min ?03/29/2021; Patient seen currently dyspneic at rest currently on oxygen via nasal cannula with flow between 8 and 9 L/min. Did explain to patient on the need to stay in the hospital for couple more days prior to being discharged home 2. Chronic hypoxic respiratory failure ?Secondary to COPD, patient is on 5 L flow per minute continuous at baseline 3. Hypertension - Blood pressure controlled, home medications continued with dose adjustment as needed 4. Seizure disorder ?Discontinue patient antiseizure medications 5. Valvular heart disease ?With history of mechanical aortic valve prosthesis patient is on Coumadin. INR is 2.0?subtherapeutic (Range 2.5-3.5) -03/26/2021; INR down to 1.8 additional dose of Coumadin given repeat INR ordered for a.m. -03/27/2021; INR down to 1.7. Patient started on therapeutic Lovenox was waiting for an INR to reach the therapeutic range -03/28/2021; INR up to 2.1, will continue Lovenox to therapeutic range is achieved -03/29/2021; INR up to 2.6 Lovenox discontinued 6. Depression ?Continue patient home regimen 7. GERD ?On PPI 8. Physical deconditioning - Requested for PT OT eval and social sciences research scientist to assist with discharge planning 9. DVT prophylaxis ?On Coumadin Charges/Coding Visit Charges Inpatient E&M: 81873 Subs Hosp L2
[2021-03-29] MEDS: Aspirin E.C. 81 MG Tablet PO (08:50)
[2021-03-29] MEDS: Ferrous Sulfate 325 MG Tablet PO ×2 (08:50→20:46)
[2021-03-29] MEDS: Metoprolol Tartrate 25 MG Tablet 37.5 MG PO ×2 (08:50→20:45)
[2021-03-29] MEDS: Vitamin B Comp W-C Capsule 1 CAP PO (08:50)
[2021-03-29] MEDS: buPROPion (SR) 150 MG Tablet.SA PO (08:50)
[2021-03-29] MEDS: Enoxaparin 80 MG/0.8 ML Syringe SC (08:51)
[2021-03-29] MEDS: Multivitamins,Therapeutic Tablet 1 TABLET PO (08:51)
[2021-03-29] MEDS: Furosemide 20 MG Tablet PO (08:51)
[2021-03-29] MEDS: Pantoprazole Sodium 40 MG Tablet PO (08:51)
[2021-03-29] MEDS: Albuterol 2.5 MG/3 ML VIAL.NEB. INHALATION (10:01)
--- NOTE | 2021-03-29 12:02 | CASEMGMT ---
Faxed [facility] prelim information with dori order in case pt dc's this weekend.
[2021-03-29] MEDS: Escitalopram Oxalate 10 MG Tablet PO (20:46)
[2021-03-30] MEDS: Phenytoin Na 100 MG Capsule PO ×3 (06:00→22:00)
[2021-03-30] MEDS: LORazepam 0.5 MG Tablet PO ×3 (06:00→22:00)
[2021-03-30] MEDS: Aspirin E.C. 81 MG Tablet PO (10:00)
[2021-03-30] MEDS: Furosemide 20 MG Tablet PO (10:00)
[2021-03-30] MEDS: Multivitamins,Therapeutic Tablet 1 TABLET PO (10:00)
[2021-03-30] MEDS: Ferrous Sulfate 325 MG Tablet PO ×2 (10:00→22:00)
[2021-03-30] MEDS: Vitamin B Comp W-C Capsule 1 CAP PO (10:00)
[2021-03-30] MEDS: Pantoprazole Sodium 40 MG Tablet PO (10:00)
--- NOTE | 2021-03-30 13:00 | PN_ITS ---
DATE OF SERVICE 03/30/2021 SUBJECTIVE OBJECTIVE GENERAL: cooperative HEENT: Atraumatic; EYES; Anicteric, Normal Conjunctiva NECK; supple, normal thyroid, RESPIRATORY: Diminished to auscultation CARDIOVASCULAR:? Regular S1 S2, GI:? soft, normoactive bowel sounds, : No Renal angle tenderness; EXTREMITIES:? No edema, no clubbing, MUSCULOSKELETAL:? no muscle wasting NEURO:? Awake;?no lateralizing signs. SKIN:? No Rash PSYCH; Flat?affect ASSESSMENT/PLAN Patient is a 55-year-old gentleman admitted with progressive shortness of breath diagnosed with acute hypoxic respiratory failure secondary to Covid pneumonia 1.? Acute on chronic hypoxic respiratory failure Secondary to Covid pneumonia patient completed course of Decadron as well as remdesivir.? Patient still remains on supplemental oxygen currently at 9 L flow per minute via nasal cannula -03/26/2021; Patient seen currently down to 7 L flow per minute of oxygen. 03/27/2021; Patient seen appears comfortable at rest.? Apparently ripped off his oxygen level resulting in transient desaturation.? Plan is for patient to be discharged home once he stabilizes 5 L of oxygen which he is on at home 03/28/2021; Patient seen appears frail.? Remains on supplemental oxygen at 6-7 L/min 03/29/2021; Patient seen currently dyspneic at rest currently on oxygen via nasal cannula with flow between 8 and 9 L/min.? Did explain to patient on the need to stay in the hospital for couple more days prior to being discharged home 2.? Chronic hypoxic respiratory failure Secondary to COPD, patient is on 5 L flow per minute continuous at baseline 3.? Hypertension - Blood pressure controlled; home medications continued with dose adjustment as needed 4.? Seizure disorder Discontinue patient antiseizure medications 5.? Valvular heart disease With history of mechanical aortic valve prosthesis patient is on Coumadin.? INR is 2.0subtherapeutic (Range 2.5-3.5) -03/26/2021; INR down to 1.8 additional dose of Coumadin given repeat INR ordered for a.m. -03/27/2021; INR down to 1.7.? Patient started on therapeutic Lovenox was waiting for an INR to reach the therapeutic range -03/28/2021; INR up to 2.1, will continue Lovenox to therapeutic range is achieved -03/29/2021; INR up to 2.6 Lovenox discontinued 6.? Depression Continue patient home regimen 7.? GERD On PPI 8.? Physical deconditioning - Requested for PT OT eval and social media sr strategy manager to assist with discharge planning 9.? DVT prophylaxis On Coumadin
[2021-03-30 16:35] LABS: Anion Gap 1 (5-15); BUN 29 mg/dL (7-18); BUN/Creat Ratio 29.1 RATIO (10-20); Calcium,Total 8.4 mg/dL (8.5-10.1); Chloride 102 mmol/L (98-107); EST Glomerular Filtration Rate 82 mL/min (>60); Est Glom Filt Rate - Afr Amer 100 mL/min (>60); Estimated Creatinine Clearance 82.48 ml/min; Glucose 91 mg/dL (74-106); Potassium 4.4 mmol/L (3.5-5.1); Sodium Level 140 mmol/L (136-145)
[2021-03-30 16:58] LABS: International Normalized Ratio 2.7; Prothrombin Time (Protime)PT. 27.6 SECONDS (11.7-14.9)
[2021-03-30 21:00] VITALS: BP 113/75; PULSE 94; RESP 18; TEMP 36.4; O2SAT 94
[2021-03-30 22:00] VITALS: PULSE 80
[2021-03-30] MEDS: Metoprolol Tartrate 25 MG Tablet 37.5 MG PO (22:00)
[2021-03-30] MEDS: Escitalopram Oxalate 10 MG Tablet PO (22:00)
[2021-03-30 23:34] VITALS: PULSE 82; RESP 12; RESP 25; O2SAT 96
[2021-03-31] VITALS (19 sets, daily range): BP systolic 111–131; BP diastolic 63–75; PULSE 73–90; RESP 12–22; TEMP 36.6–36.7; O2SAT 83–95
[2021-03-31 00:15] LABS: Absolute Lymphocyte Count 0.74 X10^3/uL (0.83-4.51); Absolute Neutrophil Count 3.7 X10^3/uL (2.0-7.7); Basophil# 0.03 X10^3/uL; Basophil% 0.5 % (0-1); Eosinophil# 0.33 X10^3/uL; Hematocrit 36.9 % (40-54); Hemoglobin 11.1 g/dL (13.0-16.5); Lymphocyte # 0.74 X10^3/ul (0.83-4.51); Lymphocyte % 13.5 % (19-41); Mean Corp Hgb Conc 30.1 g/dL (32-36); Mean Corpuscular Hgb 31.4 pg (27.0-32.0); Mean Corpuscular Volume 104.5 fL (80-94); Mean Platelet Vol. 12.9 fl (6.2-12.0); Monocyte# 0.59 X10^3/uL; Monocyte% 10.8 % (0-10); NRBC Flagged by Analyzer 0 % (0-5); Neutrophil # 3.73 X10^3/uL (2.7-7.7); Neutrophil % 68.1 % (47-70); Platelet Count 125 K/mm3 (150-450); RBC Distribution Width CV 13.7 % (11.6-14.6); RBC Distribution Width SD 52.4 fl (35.1-43.9); Red Blood Count 3.53 M/mm3 (4.6-6.2); White Blood Count 5.5 K/mm3 (4.4-11.0)
[2021-03-31] MEDS: Albuterol 2.5 MG/3 ML VIAL.NEB. INHALATION ×2 (02:09→22:28)
[2021-03-31] MEDS: Phenytoin Na 100 MG Capsule PO ×3 (06:11→23:15)
[2021-03-31] MEDS: LORazepam 0.5 MG Tablet PO ×3 (06:11→23:15)
[2021-03-31 06:51] LABS: Absolute Neutrophil Count 4.7 X10^3/uL (2.0-7.7); Basophil# 0.03 X10^3/uL; Basophil% 0.5 % (0-1); Eosinophil# 0.28 X10^3/uL; Eosinophils% 4.3 % (0-5); Hematocrit 37.9 % (40-54); Hemoglobin 11.3 g/dL (13.0-16.5); Lymphocyte % 13.8 % (19-41); Mean Corp Hgb Conc 29.8 g/dL (32-36); Mean Corpuscular Volume 103.8 fL (80-94); Mean Platelet Vol. 12.6 fl (6.2-12.0); Monocyte# 0.62 X10^3/uL; Monocyte% 9.5 % (0-10); NRBC Flagged by Analyzer 0 % (0-5); Neutrophil # 4.67 X10^3/uL (2.7-7.7); Neutrophil % 71.3 % (47-70); Platelet Count 132 K/mm3 (150-450); RBC Distribution Width CV 13.6 % (11.6-14.6); RBC Distribution Width SD 52.5 fl (35.1-43.9); Red Blood Count 3.65 M/mm3 (4.6-6.2); White Blood Count 6.5 K/mm3 (4.4-11.0)
[2021-03-31] MEDS: Ipratropium/Albuterol Sulfate 3 ML AMPUL.NEB INHALATION ×3 (07:15→20:12)
[2021-03-31 07:18] LABS: Anion Gap 3 (5-15); BUN 37 mg/dL (7-18); BUN/Creat Ratio 36.3 RATIO (10-20); Calcium,Total 8.5 mg/dL (8.5-10.1); Chloride 103 mmol/L (98-107); Creatinine, Serum 1.02 mg/dL (0.70-1.30); EST Glomerular Filtration Rate 80 mL/min (>60); Est Glom Filt Rate - Afr Amer 97 mL/min (>60); Estimated Creatinine Clearance 80.87 ml/min; Glucose 97 mg/dL (74-106); Potassium 4.5 mmol/L (3.5-5.1); Sodium Level 140 mmol/L (136-145)
[2021-03-31] MEDS: buPROPion (SR) 150 MG Tablet.SA PO ×2 (10:19)
[2021-03-31] MEDS: Pantoprazole Sodium 40 MG Tablet PO (10:19)
[2021-03-31] MEDS: Aspirin E.C. 81 MG Tablet PO (10:20)
[2021-03-31] MEDS: Ferrous Sulfate 325 MG Tablet PO ×2 (10:20→23:15)
[2021-03-31] MEDS: Furosemide 20 MG Tablet PO (10:21)
[2021-03-31] MEDS: Metoprolol Tartrate 25 MG Tablet 37.5 MG PO ×3 (10:22→23:16)
[2021-03-31] MEDS: Multivitamins,Therapeutic Tablet 1 TABLET PO (10:23)
[2021-03-31] MEDS: Vitamin B Comp W-C Capsule 1 CAP PO (14:27)
--- NOTE | 2021-03-31 15:18 | PN.HOSP_ITS ---
Subjective Subjective Patient was seen and examined today, he remains on nasal cannula oxygen at 6 L at this time. Patient does not complain of any fever or chills, he requested an aerosol treatment while I was in the room. According to nursing, patient's POA- his sister-requests that the patient go to an extended care facility for short- term rehab services. She wants to talk to the patient regarding this. Objective Data Objective Data Vital Signs: Vital Signs Temp Pulse Resp BP Pulse Ox 98.0 F 80 20 H 131/71 H 93 03/31/21 14:51 03/31/21 14:51 03/31/21 14:51 03/31/21 14:51 03/31/21 14:51 Oxygen Flow Rate (L/min) [ 7 AMBULATING with Oxygen #3] Oxygen Flow Rate (L/min) [ 11 AMBULATING with Oxygen #2] Oxygen Flow Rate (L/min) [ 7 AMBULATING with Oxygen #1] Oxygen Flow Rate (L/min) [At 5 REST with Oxygen] Oxygen Flow Rate (L/min) 6 Oxygen Delivery Method High Flow Weight: 85.6 kg Body Mass Index (BMI) 27.1 Intake & Output: Intake and Output for Last 24 Hours 03/29/21 03/30/21 03/31/21 23:59 23:59 23:59 Intake Total 700 / 700 Output Total 750 / 750 250 / 250 Balance -50 / -50 -250 / -250 Lab / Micro Data Result Diagrams: 03/31/21 06:15 03/31/21 06:15 Labs: Laboratory Results - last 24 hr 03/30/21 06:00: WBC 5.5, RBC 3.53 L, Hgb 11.1 L, Hct 36.9 L, MCV 104.5 H, MCH 31.4, MCHC 30.1 L, RDW Std Deviation 52.4 H, RDW Coeff of Joseluis 13.7, Plt Count 125 L, MPV 12.9 H, Immature Gran % (Auto) 1.100 H, Neut % (Auto) 68.1, Lymph % (Auto) 13.5 L, [place] % (Auto) 10.8 H, Eos % (Auto) 6.0 H, Baso % (Auto) 0.5, Absolute Neuts (auto) 3.7, Absolute Lymphs (auto) 0.74 L, Nucleated RBC % 0 01/29/22 06:15: WBC Cancelled, Corrected WBC Cancelled, RBC Cancelled, Hgb Cancelled, Hct Cancelled, MCV Cancelled, MCH Cancelled, MCHC Cancelled, RDW Std Deviation Cancelled, RDW Coeff of Joseluis Cancelled, Plt Count Cancelled, MPV Cancelled, Immature Gran % (Auto) Cancelled, Neut % (Auto) Cancelled, Lymph % (Auto) Cancelled, [place] % (Auto) Cancelled, Eos % (Auto) Cancelled, Baso % (Auto) Cancelled, Absolute Neuts (auto) Cancelled, Absolute Lymphs (auto) Cancelled, Total Counted Cancelled, Neutrophils % (Manual) Cancelled, Band Neutrophils % Cancelled, Lymphocytes % (Manual) Cancelled, Monocytes % (Manual) Cancelled, Eosinophils % (Manual) Cancelled, Basophils % (Manual) Cancelled, Metamyelocytes % Cancelled, Myelocytes % Cancelled, Promyelocytes % Cancelled, Blast Cells % Cancelled, Plasma Cell % (Manual) Cancelled, Other Cells % Cancelled, Nucleated RBC % Cancelled, Nucleated RBCs/100 WBC Cancelled, Differential Comment Cancelled, Diff Path Review Cancelled, Hypersegmented Neuts Cancelled, Atypical Lymphocytes Cancelled, Reactive Lymphocytes Cancelled, Smudge Cells Cancelled, Toxic Granulation Cancelled, Toxic Vacuolation Cancelled, Dohle Bodies Cancelled , Desiree Rods Cancelled, Platelet Estimate Cancelled, Plt Morphology Comment Cancelled, RBC Morphology Cancelled, Polychromasia Cancelled, Hypochromasia Cancelled, Poikilocytosis Cancelled, Basophilic Stippling Cancelled, Anisocytosis Cancelled, Microcytosis Cancelled, Macrocytosis Cancelled, Spherocy holger Cancelled, Sickle Cells Cancelled, Target Cells Cancelled, Tear Drop Cells Cancelled, Ovalocytes Cancelled, Stomatocytes Cancelled, [place] Bodies Cancelled, Mantee Cells Cancelled, Bite Cells Cancelled, Crenated Cell Cancelled, Acanthocytes (Spur) Cancelled, Rouleaux Cancelled, Schistocytes Cancelled 03/30/21 06:15: PT 27.6 H, INR 2.7 03/30/21 06:15: Sodium 140, Potassium 4.4, Chloride 102, Carbon Dioxide 37.0 H, Anion Gap 1 L, BUN 29 H, Creatinine 1.00, Estim Creat Clear Calc 82.48, Est GFR (MDRD) Af Amer 100, Est GFR (MDRD) Non-Af 82, BUN/Creatinine Ratio 29.1 H, Glucose 91, Calcium 8.4 L 03/31/21 06:15: WBC 6.5, RBC 3.65 L, Hgb 11.3 L, Hct 37.9 L, MCV 103.8 H, MCH 31.0, MCHC 29.8 L, RDW Std Deviation 52.5 H, RDW Coeff of Joseluis 13.6, Plt Count 132 L, MPV 12.6 H, Immature Gran % (Auto) 0.600, Neut % (Auto) 71.3 H, Lymph % (Auto) 13.8 L, [place] % (Auto) 9.5, Eos % (Auto) 4.3, Baso % (Auto) 0.5, Absolute Neuts (auto) 4.7, Absolute Lymphs (auto) 0.90, Nucleated RBC % 0 03/31/21 06:15: PT 30.0 H, INR 3.0 03/31/21 06:15: Sodium 140, Potassium 4.5, Chloride 103, Carbon Dioxide 34.0 H, Anion Gap 3 L, BUN 37 H, Creatinine 1.02, Estim Creat Clear Calc 80.87, Est GFR (MDRD) Af Amer 97, Est GFR (MDRD) Non-Af 80, BUN/Creatinine Ratio 36.3 H, Glucose 97, Calcium 8.5 Micro: Microbiology 03/15/21 19:05 Blood Culture (Wb) - Left Wrist Bacteria Detection (PCR) - Final Coag Negative Staph 03/15/21 19:05 Blood Culture (Wb) - Left Wrist Blood Culture - Final Coag Negative Staph 03/15/21 18:53 Blood Culture (Wb) #2 - Anticubital Left Blood Culture - Final No growth in 5 days. 03/15/21 23:10 Urine, Random Legionella Antigen - Final 03/15/21 23:10 Urine, Random Streptococcus pneumoniae Antigen (M - Final 03/15/21 18:50 Nasal Secretion SARS-CoV-2 Antigen (Rapid) - Final SARS-CoV-2 (COVID 19) Rhythm Strip Rhythm Strip: Sinus Tach Rate: 118 Ectopy: None Physical Exam Const alert and no apparent distress Constitutional Narrative: Patient appears older than stated age General Appearance: cooperative, well kempt and well developed Orientation / Consciousness: awake, oriented to person, oriented to place and oriented to time HEENT normocephalic, head/scalp atraumatic and moist oral mucous membranes Head and Scalp: normocephalic Eyes PERRL, EOMs intact bilaterally and conjunctivae normal Neck nuchal rigidity, supple, no JVD, thyroid normal and no carotid bruits General: trachea midline Resp normal respiratory effort, no retractions, no use of accessory muscles and clear to auscultation bilaterally Auscultation: Negative for rales, rhonchi or wheezes Cardio regular rate, regular rhythm, S1 normal heart sound, S2 normal heart sound, no rub and no gallops Cardio Narrative: There is a mechanical click over the patient's right sternal border, apex, and left sternal border GI normal to inspection, nondistended, normoactive bowel sounds, soft to palpation, non-tender and non-distended Extremity normal to inspection and no clubbing, cyanosis or edema Skin no rashes or lesions noted, no wounds and skin turgor normal General Skin Exam: no breakdown Neuro CN's II-XII intact bilaterally, no focal motor deficits and no sensory deficits noted Neuro Narrative: Patient shows evidence of cognitive impairment which appears to be mild to moderate Sensorium / Orientation: awake and alert Speech: speech normal Psych thought process normal Psych Narrative: Mild to moderate cognitive impairment Assessment & Plan Assessment/Plan (1) COVID-19 virus infection: PLAN: 1. Acute on chronic hypoxic respiratory failure secondary to COVID- 19 pneumonia on a backdrop of end-stage COPD-continue present treatment, patient is still on high flow nasal cannula oxygen at this time, he may be eligible to go to an extended care facility for short-term rehab services if his oxygen requirement does not increase. Patient is out of isolation today. #2 COVID-19 pneumonia-patient is currently on Decadron #3 end-stage COPD-patient is currently on bronchodilators #4 valvular heart disease-mechanical aortic valve replacement--patient has mechanical heart valve and is currently on Coumadin #5 developmental disability-complicates care and recovery #6 seizure disorder-patient is currently on Dilantin #7 essential hypertension-patient is currently on metoprolol Charges/Coding Visit Charges Inpatient E&M: 22934 Subs Hosp L2
--- NOTE | 2021-03-31 22:22 | NURSING ---
This nurse entered patients room to perform assessment, collect vitals, and administer scheduled medications. As nurse explained the care that was to be provided the pt stated no, I don't want that. This nurse then asked pt if they would allow the nurse to collect vitals and assess. The pt said no and turned away from the nurse.
[2021-03-31] MEDS: Escitalopram Oxalate 10 MG Tablet PO (23:15)
[2021-04-01] VITALS (15 sets, daily range): BP systolic 93–117; BP diastolic 58–74; PULSE 70–93; RESP 12–24; TEMP 36.6–36.7; O2SAT 88–99
[2021-04-01] MEDS: Albuterol 2.5 MG/3 ML VIAL.NEB. INHALATION (04:10)
[2021-04-01] MEDS: Phenytoin Na 100 MG Capsule PO ×3 (05:18→20:50)
[2021-04-01] MEDS: LORazepam 0.5 MG Tablet PO ×3 (05:18→20:50)
--- NOTE | 2021-04-01 06:50 | NURSING ---
Pt was asked twice to do a walking pulse ox. Pt refused both times.
[2021-04-01] MEDS: Ipratropium/Albuterol Sulfate 3 ML AMPUL.NEB INHALATION ×3 (07:35→18:51)
[2021-04-01] MEDS: Ferrous Sulfate 325 MG Tablet PO ×2 (09:51→20:52)
[2021-04-01] MEDS: Furosemide 20 MG Tablet PO (09:51)
[2021-04-01] MEDS: Vitamin B Comp W-C Capsule 1 CAP PO (09:51)
[2021-04-01] MEDS: Aspirin E.C. 81 MG Tablet PO (09:51)
[2021-04-01] MEDS: Multivitamins,Therapeutic Tablet 1 TABLET PO (09:51)
[2021-04-01] MEDS: Pantoprazole Sodium 40 MG Tablet PO (09:51)
[2021-04-01] MEDS: buPROPion (SR) 150 MG Tablet.SA PO (09:51)
--- NOTE | 2021-04-01 10:18 | CASEMGMT ---
Addendum entered by Smita Everett 04/01/21 10:31: Updated Sebastián Flores of pt plan to go to SNF. Will notify her of accepting facility when it is determined. Original Note: RN CM in to pt room. Pt sitting up in bed with O2 on in no distress. Asked if pt has spoke to his sister, he states he has not. Asked pt how he felt he was doing with therapy and if he still feels he can return home. Asked pt if we could have a meeting with his sister and him. Pt states Why? It won't matter. [facility], I will go there. Confirmed with pt his choice is to go to [facility]. Notified Sadaf SHORT
[2021-04-01] MEDS: Metoprolol Tartrate 25 MG Tablet 37.5 MG PO ×2 (11:13→20:50)
--- NOTE | 2021-04-01 12:11 | CASEMGMT ---
Social Work Note SW received referral for SNF placement. Pt's preferred provider is [facility]. SW reviewed chart. Pt has been to [facility] before. ANAID placed a call to Mayra at [facility]. Mayra states they are accepting admissions, willing to review referral. ANAID faxed referral to Mayra at [facility]. Plan: [facility] pending acceptance Zainab Green MSW, ACOUSTICAL INSTALLER
--- NOTE | 2021-04-01 15:21 | PCM.PN.HOSP ---
Subjective Subjective Patient was seen and examined today, he has agreed to go to an extended care facility for short-term rehab services, we are trying to get the patient into [facility]. Patient is currently on 5 L of oxygen via nasal cannula at rest. Objective Data Objective Data Vital Signs: Vital Signs Temp Pulse Resp BP Pulse Ox 97.9 F 73 16 96/64 97 04/01/21 14:19 04/01/21 14:19 04/01/21 14:19 04/01/21 14:19 04/01/21 14:19 Oxygen Flow Rate (L/min) [ 7 AMBULATING with Oxygen #3] Oxygen Flow Rate (L/min) [ 11 AMBULATING with Oxygen #2] Oxygen Flow Rate (L/min) [ 7 AMBULATING with Oxygen #1] Oxygen Flow Rate (L/min) [At 5 REST with Oxygen] Oxygen Flow Rate (L/min) 5 Oxygen Delivery Method Nasal Cannula Weight: 86 kg Body Mass Index (BMI) 27.1 Intake & Output: Intake and Output for Last 24 Hours 03/30/21 03/31/21 04/01/21 23:59 23:59 23:59 Intake Total 600 / 600 800 / 800 Output Total 950 / 950 450 / 450 Balance -350 / -350 350 / 350 Lab / Micro Data Result Diagrams: 03/31/21 06:15 03/31/21 06:15 Labs: Laboratory Results - last 24 hr 03/31/21 16:18: Protein C Antigen Cancelled, Prot C Funct Activity Cancelled Micro: Microbiology 03/31/21 10:56 Sputum, Expectorated/Coughed Gram Stain - Final 03/31/21 10:56 Sputum, Expectorated/Coughed Respiratory Culture - Preliminary Appears to be normal respiratory jessica. Further studies to follow. 03/15/21 19:05 Blood Culture (Wb) - Left Wrist Bacteria Detection (PCR) - Final Coag Negative Staph 03/15/21 19:05 Blood Culture (Wb) - Left Wrist Blood Culture - Final Coag Negative Staph 03/15/21 18:53 Blood Culture (Wb) #2 - Anticubital Left Blood Culture - Final No growth in 5 days. 03/15/21 23:10 Urine, Random Legionella Antigen - Final 03/15/21 23:10 Urine, Random Streptococcus pneumoniae Antigen (M - Final 03/15/21 18:50 Nasal Secretion SARS-CoV-2 Antigen (Rapid) - Final SARS-CoV-2 (COVID 19) Rhythm Strip Rhythm Strip: Sinus Tach Rate: 118 Ectopy: None Physical Exam Const alert and no apparent distress Constitutional Narrative: Patient appears older than his stated age General Appearance: cooperative, well kempt and well developed Orientation / Consciousness: awake, oriented to person, oriented to place and oriented to time HEENT normocephalic, head/scalp atraumatic and moist oral mucous membranes Head and Scalp: normocephalic Eyes PERRL, EOMs intact bilaterally and conjunctivae normal Neck nuchal rigidity, supple, no JVD, thyroid normal and no carotid bruits General: trachea midline Resp normal respiratory effort, no retractions and no use of accessory muscles Resp Narrative: Breath sounds are distant bilaterally Auscultation: Negative for rales, rhonchi or wheezes Cardio regular rate, regular rhythm, no murmurs, no rub and no gallops Cardio Narrative: There is mechanical click noted over the patient's right sternal border, left sternal border, and apex GI normal to inspection, nondistended, normoactive bowel sounds, soft to palpation, non-tender and non-distended Extremity no clubbing, cyanosis or edema Skin no rashes or lesions noted General Skin Exam: no breakdown Neuro CN's II-XII intact bilaterally, no focal motor deficits and no sensory deficits noted Sensorium / Orientation: awake and alert Psych Psych Narrative: Patient has evidence on exam of cognitive deficiency which is moderate in nature Assessment & Plan Assessment/Plan (1) COVID-19 virus infection: PLAN: 1. Acute on chronic hypoxic respiratory failure secondary to COVID-19 pneumonia on a backdrop of end-stage COPD-continue present treatment, patient is still on nasal cannula oxygen at 5 L at rest #2 COVID-19 pneumonia-patient is currently on Decadron #3 end-stage COPD-patient is currently on bronchodilators #4 valvular heart disease-mechanical aortic valve replacement--patient has mechanical heart valve and is currently on Coumadin #5 developmental disability-complicates care and recovery #6 seizure disorder-patient is currently on Dilantin #7 essential hypertension-patient is currently on metoprolol #8 acute debility secondary to multiple medical problems-patient has agreed to go to an extended care facility for short-term rehab services, continue PT and OT for now Charges/Coding Visit Charges Inpatient E&M: 88156 Subs Hosp L2
--- NOTE | 2021-04-01 15:48 | CASEMGMT ---
Social Work Note ANAID has not heard anything regarding referral from [facility]. ANAID placed a call to [facility] and spoke with Mayra in admissions. Mayra states they will plan on taking pt but need pt's Bipap settings so she can order that and will need to order oxygen concentrator that can go up to 10 liters. Mayra states to touch base with her tomorrow to make sure she has all the equipment pt needs at the facility. ANAID updated physician. ANAID will speak with Mayra tomorrow to confirm she has all needed equipment for pt. ANAID faxed Bipap settings and oxygen settings to [facility]. Plan: [facility] pending they can get all needed DME for pt. Zainab Green MEAT AND SEAFOOD MANAGER, FINAL ASSEMBLY INSPECTOR
[2021-04-01] MEDS: Escitalopram Oxalate 10 MG Tablet PO (20:53)
[2021-04-02] VITALS (19 sets, daily range): BP systolic 102–135; BP diastolic 63–74; PULSE 78–104; RESP 18–26; TEMP 36.4–36.9; O2SAT 86–98
[2021-04-02] MEDS: Albuterol 2.5 MG/3 ML VIAL.NEB. INHALATION (00:26)
[2021-04-02] MEDS: LORazepam 0.5 MG Tablet PO ×3 (05:21→21:59)
[2021-04-02] MEDS: Phenytoin Na 100 MG Capsule PO ×3 (05:21→21:58)
[2021-04-02] MEDS: Ipratropium/Albuterol Sulfate 3 ML AMPUL.NEB INHALATION ×4 (07:10→22:35)
[2021-04-02] MEDS: buPROPion (SR) 150 MG Tablet.SA PO (09:55)
[2021-04-02] MEDS: Furosemide 20 MG Tablet PO (09:55)
[2021-04-02] MEDS: Metoprolol Tartrate 25 MG Tablet 37.5 MG PO ×2 (09:55→21:58)
[2021-04-02] MEDS: Vitamin B Comp W-C Capsule 1 CAP PO (09:55)
[2021-04-02] MEDS: Pantoprazole Sodium 40 MG Tablet PO (09:55)
[2021-04-02] MEDS: Aspirin E.C. 81 MG Tablet PO (09:55)
[2021-04-02] MEDS: Multivitamins,Therapeutic Tablet 1 TABLET PO (09:55)
[2021-04-02] MEDS: Ferrous Sulfate 325 MG Tablet PO ×2 (09:57→21:59)
--- NOTE | 2021-04-02 12:24 | CASEMGMT ---
Social Work Note ANAID reviewed chart. Pt was up to 9 Liters Oxygen last night/this morning. ANAID placed a call to Mayra at [facility] and updated her. Mayra requested that pt remain at [facility] tonight still to make sure pt is stable on oxygen. Mayra states she has Bipap ordered and Oxygen concentrator but pt will need to discharge with Bipap Mask. ANAID updated physician. Pt to remain at [facility] today. ANAID updated RN. Plan: [facility] skilled tomorrow Zainab Green COUNSELOR AT LAW, PIGEON FANCIER
--- NOTE | 2021-04-02 17:39 | PN.HOSP_ITS ---
Subjective Subjective Patient was seen and examined today, he does not complain of any shortness of breath at rest, patient required 6 L of oxygen at rest to maintain his pulse ox today, we are awaiting medical stabilization for transfer to an extended care facility for inpatient rehab services. Objective Data Objective Data Vital Signs: Vital Signs Temp Pulse Resp BP Pulse Ox 97.8 F 84 18 102/63 93 04/02/21 14:00 04/02/21 14:00 04/02/21 14:00 04/02/21 14:00 04/02/21 14:00 Oxygen Flow Rate (L/min) [ 7 AMBULATING with Oxygen #3] Oxygen Flow Rate (L/min) [ 11 AMBULATING with Oxygen #2] Oxygen Flow Rate (L/min) [ 7 AMBULATING with Oxygen #1] Oxygen Flow Rate (L/min) [At 5 REST with Oxygen] Oxygen Flow Rate (L/min) 6 Oxygen Delivery Method Nasal Cannula Weight: 86.1 kg Body Mass Index (BMI) 27.1 Intake & Output: Intake and Output for Last 24 Hours 03/31/21 04/01/21 04/02/21 23:59 23:59 23:59 Intake Total 600 / 600 800 / 800 Output Total 950 / 950 450 / 450 1500 / 1500 Balance -350 / -350 350 / 350 -1500 / -1500 Lab / Micro Data Result Diagrams: 03/31/21 06:15 03/31/21 06:15 Micro: Microbiology 03/31/21 10:56 Sputum, Expectorated/Coughed Gram Stain - Final 03/31/21 10:56 Sputum, Expectorated/Coughed Respiratory Culture - Final 03/15/21 19:05 Blood Culture (Wb) - Left Wrist Bacteria Detection (PCR) - Final Coag Negative Staph 03/15/21 19:05 Blood Culture (Wb) - Left Wrist Blood Culture - Final Coag Negative Staph 03/15/21 18:53 Blood Culture (Wb) #2 - Anticubital Left Blood Culture - Final No growth in 5 days. 03/15/21 23:10 Urine, Random Legionella Antigen - Final 03/15/21 23:10 Urine, Random Streptococcus pneumoniae Antigen (M - Final 03/15/21 18:50 Nasal Secretion SARS-CoV-2 Antigen (Rapid) - Final SARS-CoV-2 (COVID 19) Rhythm Strip Rhythm Strip: Sinus Tach Rate: 118 Ectopy: None Physical Exam Narrative alert and no apparent distress Constitutional Narrative: Patient appears older than his stated age General Appearance: cooperative, well kempt and well developed Orientation / Consciousness: awake, oriented to person, oriented to place and oriented to time HEENT normocephalic, head/scalp atraumatic and moist oral mucous membranes Head and Scalp: normocephalic Eyes PERRL, EOMs intact bilaterally and conjunctivae normal Neck nuchal rigidity, supple, no JVD, thyroid normal and no carotid bruits General: trachea midline Resp normal respiratory effort, no retractions and no use of accessory muscles Resp Narrative: Breath sounds are distant bilaterally Auscultation: Negative for rales, rhonchi or wheezes Cardio regular rate, regular rhythm, no murmurs, no rub and no gallops Cardio Narrative: There is mechanical click noted over the patient's right sternal border, left sternal border, and apex GI normal to inspection, nondistended, normoactive bowel sounds, soft to palpation, non-tender and non-distended Extremity no clubbing, cyanosis or edema Skin no rashes or lesions noted General Skin Exam: no breakdown Neuro CN's II-XII intact bilaterally, no focal motor deficits and no sensory deficits noted Sensorium / Orientation: awake and alert Psych Psych Narrative: Patient has evidence on exam of cognitive deficiency which is moderate in nature Assessment & Plan Assessment/Plan (1) Acute and chronic respiratory failure with hypoxia: (2) COVID-19 virus infection: PLAN: 1. Acute on chronic hypoxic respiratory failure secondary to COVID- 19 pneumonia on a backdrop of end-stage COPD-continue present treatment, patient is still on nasal cannula oxygen at 6 L at rest #2 COVID-19 pneumonia-patient is currently on Decadron #3 end-stage COPD-patient is currently on bronchodilators, I have added Pulmicort aerosols today #4 valvular heart disease-mechanical aortic valve replacement--patient has mechanical heart valve and is currently on Coumadin #5 developmental disability-complicates care and recovery #6 seizure disorder-patient is currently on Dilantin #7 essential hypertension-patient is currently on metoprolol #8 acute debility secondary to multiple medical problems-patient has agreed to go to an extended care facility for short-term rehab services, continue PT and OT for now I had a discussion with the patient's sister who is his POA today by phone, she has agreed to change the patient's CODE STATUS to DNR CC arrest with no intubation. Charges/Coding Visit Charges Inpatient E&M: 44270 Subs Hosp L2
[2021-04-02] MEDS: Escitalopram Oxalate 10 MG Tablet PO (21:59)
[2021-04-02] MEDS: Budesonide Respules 0.5 MG/2 ML AMPUL.NEB. INHALATION (22:35)
[2021-04-03] VITALS (10 sets, daily range): BP systolic 105–111; BP diastolic 60–65; PULSE 71–88; RESP 12–24; TEMP 36.6–36.9; O2SAT 86–97
[2021-04-03] MEDS: Ipratropium/Albuterol Sulfate 3 ML AMPUL.NEB INHALATION ×2 (03:20→13:05)
[2021-04-03] MEDS: LORazepam 0.5 MG Tablet PO ×2 (05:41→13:38)
[2021-04-03] MEDS: Phenytoin Na 100 MG Capsule PO ×2 (05:41→13:38)
[2021-04-03] MEDS: Albuterol 2.5 MG/3 ML VIAL.NEB. INHALATION (07:24)
[2021-04-03] MEDS: Budesonide Respules 0.5 MG/2 ML AMPUL.NEB. INHALATION (07:24)
[2021-04-03] MEDS: Metoprolol Tartrate 25 MG Tablet 37.5 MG PO (08:07)
[2021-04-03] MEDS: Ferrous Sulfate 325 MG Tablet PO (08:08)
[2021-04-03] MEDS: Pantoprazole Sodium 40 MG Tablet PO (08:09)
[2021-04-03] MEDS: Multivitamins,Therapeutic Tablet 1 TABLET PO (08:09)
[2021-04-03] MEDS: buPROPion (SR) 150 MG Tablet.SA PO (08:09)
[2021-04-03] MEDS: Aspirin E.C. 81 MG Tablet PO (08:09)
[2021-04-03] MEDS: Furosemide 20 MG Tablet PO (08:09)
[2021-04-03] MEDS: Vitamin B Comp W-C Capsule 1 CAP PO (08:10)
--- NOTE | 2021-04-03 10:25 | CASEMGMT ---
Social Work Note SW reviewed chart. Pt has been stable on 6 liters of Oxygen. ANAID placed a call to [facility] and asked to speak to Mayra. ANAID updated that Mayra is not in today and no one is covering for her. ANAID asked to speak to someone regarding referral. ANAID transferred to [facility]. ANAID informed Kymberly that pt has been stable on 6 Liters of Oxygen, will discharge to [facility] today. Kymberly confirms pt is able to discharge today. ANAID updated physician. Plan: [facility] today Zainab Green PICTURE FRAME MAKER, MANAGER NEWS
--- NOTE | 2021-04-03 12:40 | PCM.TXEXTCAR ---
Diet 03/16/21 12:36 Diet: Regular - General Type of Dietary Supplement:: Ensure Enlive Is pt able to select menu?: Yes Diet Comments: ensure pudding or magic cup w/ L&D - 4 oz EE tid w/ meals Routine Orders/Code Status O2 Liters per Minute: 6- at rest, 8 liters when ambulating O2 Frequency: Continuous Keep PO Greater than or Equal to (%): 90 Routine Lab Work: INR (daily times 7 days-keep Inr 2.5-3.5- start 04/04/21) and - Code Status: DNRCC-A (no intubation) Therapies Weight Bearing: Full weight bearing Physical Therapy: Eval and Treat Occupational Therapy: Eval and Treat Problem/Diagnosis (1) Acute and chronic respiratory failure with hypoxia: Status: Acute (2) COVID-19 virus infection: Status: Acute (3) Epilepsy: Status: Chronic (4) Learning disability: Status: Chronic (5) HTN (hypertension): Status: Chronic (6) Aortic valve disease: Status: Chronic Comment: mechanical heart valve (7) COPD (chronic obstructive pulmonary disease): Status: Chronic Comment: oxygen dependant- 5 liters at baseline Allergies/Procedures Done in Hospital Allergies No Known Allergies Allergy (Verified 03/15/21 18:35) Procedures: None Type of Care/Length of Stay Estimated LOS: Convalescent Care Less Than 30 days Type of Care Needed: Skilled Rehab Potential: Good Prognosis: Good Additional Orders/Day of Discharge H&P will serve as current which was dated: 03/15/21 Day of Discharge: 04/03/21 Dietary and Speech Recommendations Dietitian Recommendations/Changes: Continue regular diet as ordered and 4 oz ensure enlive w/ meals Continue ensure pudding or magic cup w/ lunch and dinner Discharge Plan Admission Admit Date/Time: 03/15/21 20:04 Primary Reason for Your Visit: covid-19 pneumonia, acute on chronic respiratory failure Attending Provider: Jason Rizvi Primary Care Provider: Jason Leal Consulting Providers: Mark Marlow ; Joseph Wu Discharge Orders/Prescriptions Prescriptions: New acetaminophen [Tylenol] 325 mg Tablet 650 mg PO Q4H PRN PRN (Reason: Fever, pain 1-10/10) Qty: 0 RF: 0 albuterol sulfate 2.5 mg /3 mL (0.083 %) Solution For Nebulization 2.5 mg inhalation Q2H PRN PRN (Reason: Dyspnea, wheezing) Qty: 0 RF: 0 warfarin [Jantoven] 7.5 mg Tablet 7.5 mg PO DAILY@1700 Qty: 0 RF: 0 cholecalciferol (vitamin D3) [Vitamin D3] 50 mcg (2,000 unit) capsule 50 mcg PO DAILY Qty: 1 RF: 0 Continued aspirin [Adult Aspirin Regimen] 81 mg tablet,delayed release (DR/EC) 81 mg PO DAILY RF: 0 multivitamin [Multiple Vitamins] tablet 1 tab PO QDAY RF: 0 vitamin B complex [B Complex-Vitamin B12] Tablet 1 tab PO DAILY RF: 0 escitalopram oxalate 5 mg tablet 10 mg PO QHS RF: 0 ferrous sulfate [Feosol] 325 mg (65 mg iron) tablet 325 mg PO BID RF: 0 alum-mag hydroxide-simeth 200-200-20 mg/5 mL suspension 30 ml PO Q4H PRN (Reason: Heartburn) RF: 0 pantoprazole 20 mg tablet,delayed release (DR/EC) 40 mg PO DAILY RF: 0 ascorbate calcium (vitamin C) 500 mg tablet 500 mg PO DAILY RF: 0 bupropion HCl [Wellbutrin SR] 150 mg tablet sustained-release 12 hr 150 mg PO DAILY RF: 0 melatonin 3 mg capsule 5 mg PO HS PRN (Reason: Insomnia) RF: 0 furosemide 20 mg tablet 20 mg PO DAILY RF: 0 phenytoin sodium extended [Dilantin Extended] 100 mg capsule 100 mg PO TID RF: 0 metoprolol tartrate 25 mg tablet 37.5 mg PO BID RF: 0 Trelegy Ellipta 200-62.5-25 mcg blister with device 1 inh inhalation DAILY RF: 0 Discontinued acetaminophen [Tylenol] 325 mg tablet 325 mg PO Q6H PRN (Reason: Pain) RF: 0 warfarin 5 mg tablet 5 mg PO SUMOTUWEFRSA RF: 0 albuterol sulfate 2.5 MG/3 ML solution for nebulization 2.5 mg INHALATION Q4H PRN PRN (Reason: Sob &/Or Wheezing) RF: 0 Oxygen, Home [Home Oxygen] 2 - 4 lpm NASAL DAILY RF: 0 potassium chloride 20 mEq tablet,ER particles/crystals 20 meq PO BID RF: 0 cholecalciferol (vitamin D3) 1,250 mcg (50,000 unit) capsule 50,000 unit PO TUFR RF: 0 warfarin 6 mg tablet 6 mg PO TH RF: 0 prednisone 20 mg tablet 40 mg PO DAILY Qty: 14 RF: 0 prednisone 20 mg tablet 40 mg PO DAILY Qty: 10 RF: 0 albuterol sulfate 90 mcg/actuation HFA aerosol inhaler 2 puff INHALATION Q4H PRN PRN (Reason: Shortness Of Breath) Qty: 6.7 RF: 3 Referrals / Follow Up: Jason Leal DO [Primary Care Provider] - Disposition Disposition (needs filled in before D/C Order can be placed): Home Health Service
--- NOTE | 2021-04-03 15:01 | DS.PCM_ITS ---
Providers Date of Admission: 03/15/21 Date of Discharge: 04/03/21 Primary Care Physician: Dr. Jason Leal, Consultations 03/15/21 21:32 Consult: Field Hauler / Pulmonary Medicine Routine Consulting Provider: Mark Marlow Reason for Consult: COVID, resp failure, on BIPAP EMERGENT Consult: No Notified: Yes Date Notified: 03/15/21 Time Notified: 20:06 Method of Notification: cortext 03/20/21 09:40 Consult: Infectious Disease Routine Consulting Provider: Joseph Wu Reason for Consult: Baricitinib? EMERGENT Consult: No Notified: Yes Date Notified: 03/20/21 Time Notified: 09:56 Method of Notification: Text Reason For Visit: ACUTE ON CHRONIC RESP FAILURE, COVID Diagnosis Discharge Diagnosis (1) Acute and chronic respiratory failure with hypoxia: Status: Acute Code(s): J96.21 - Acute and chronic respiratory failure with hypoxia (2) COVID-19 virus infection: Status: Acute Code(s): U07.1 - COVID-19 (3) Epilepsy: Status: Chronic Code(s): G40.909 - Epilepsy, unspecified, not intractable, without status epilepticus Qualifiers: Epilepsy type: unspecified Intractability: not intractable Status epilepticus: without status epilepticus Qualified Code(s): G40.909 - Epilepsy, unspecified, not intractable, without status epilepticus (4) Learning disability: Status: Chronic Code(s): F81.9 - Developmental disorder of scholastic skills, unspecified (5) HTN (hypertension): Status: Chronic Code(s): I10 - Essential (primary) hypertension (6) Aortic valve disease: Status: Chronic Code(s): I35.9 - Nonrheumatic aortic valve disorder, unspecified (7) COPD (chronic obstructive pulmonary disease): Status: Chronic Code(s): J44.9 - Chronic obstructive pulmonary disease, unspecified Plan: Final diagnosis: #1 COVID-19 pneumonia #2 acute on chronic hypoxic respiratory failure secondary to COVID-19 on a backdrop of end-stage COPD #3 end-stage COPD #4 valvular heart disease #5 developmental disability #6 seizure disorder #7 essential hypertension #8 acute debility secondary to multiple medical problems Medications at Discharge Home Medications aspirin 81 mg tablet,delayed release 81 mg PO DAILY 03/17/17 multivitamin 1 tab PO QDAY 03/17/17 vitamin B complex 1 tab PO DAILY 01/04/20 aluminum-mag hydroxide-simethicone 200 mg-200 mg-20 mg/5 mL oral susp 30 ml PO Q4H PRN ml 04/18/20 ascorbate calcium (vitamin C) 500 mg tablet 500 mg PO DAILY 04/18/20 bupropion HCl 150 mg tablet,12 hr sustained-release 150 mg PO DAILY 04/18/20 escitalopram oxalate 5 mg tablet 10 mg PO QHS tab 04/18/20 ferrous sulfate 325 mg (65 mg iron) tablet 325 mg PO BID 04/18/20 melatonin 3 mg capsule 5 mg PO HS PRN cap 04/18/20 pantoprazole 20 mg tablet,delayed release 40 mg PO DAILY 04/18/20 furosemide 20 mg PO DAILY 10/26/20 Trelegy Ellipta 1 inh INHALATION DAILY 12/27/20 metoprolol tartrate 37.5 mg PO BID 12/27/20 phenytoin sodium extended [Dilantin Extended] 100 mg PO TID 12/27/20 acetaminophen [Tylenol] 650 mg PO Q4H PRN PRN #0 tab 04/03/21 albuterol sulfate 2.5 mg INHALATION Q2H PRN PRN #0 ml 04/03/21 cholecalciferol (vitamin D3) [Vitamin D3] 50 mcg PO DAILY #1 cap 04/03/21 warfarin [Jantoven] 7.5 mg PO DAILY@1700 #0 tab 04/03/21 Hospital Course Summary of Care Provided Minutes Spent on Discharge: 33 Hospital Course: This 55-year-old white male was seen in the emergency room at [facility] with a chief complaint of shortness of breath, he chronically uses 5 L of oxygen at home due to end-stage COPD, patient also has a developmental disability. Work-up in the emergency room included a chest x-ray which showed chronic changes in the lungs suggestive of COPD, SARS Covid antigen test was positive, patient was given IV Decadron in the emergency room, placed on BiPAP to maintain his pulse ox above 90%, he was admitted to ICU and placed on IV dexamethasone and remdesivir. He was seen in consultation by infectious diseases who did not feel the patient required baricitinib. Patient's respiratory status was somewhat stabilized in the ICU and he was moved out to [place] [id number], he continues to require high oxygen flow rates via nasal cannula, due to extreme weakness and debility, he was seen by PT and OT and he agreed to go to an extended care facility for short-term rehab services. On 04/03/2021, patient was seen and examined: On examination he appeared older than his stated age, there is evidence of cognitive impairment. Vital signs as documented. Skin warm and dry and without overt rashes. Neck without JVD, neck was supple, trachea midline, thyroid was normal. Lungs clear bilaterally, decreased air movement was noted. Heart exam notable for regular rhythm, normal sounds and absence of murmurs, rubs or gallops. Abdomen unremarkable and without evidence of organomegaly, masses, or abdominal aortic enlargement. Bowel sounds are present, abdomen is not distended. Extremities nonedematous, no cyanosis was noted, no clubbing was noted. Neuro: Cranial nerves II through XII are grossly intact, no focal motor deficits were noted, sensation to light touch and pinprick intact, motor exam 5/5 throughout. Psych: Patient is alert and oriented x3, he does not appear anxious or depressed, he does not appear agitated. On 04/03/2021, patient was discharged to an extended care facility for short-term rehab services in stable condition. Weight / BMI Weight Weight: 84.55 kg Body Mass Index (BMI) 27.1 ABG / Lab / Microbiology Data Result Diagrams: 03/31/21 06:15 03/31/21 06:15 Microbiology: Microbiology 03/31/21 10:56 Sputum, Expectorated/Coughed Gram Stain - Final 03/31/21 10:56 Sputum, Expectorated/Coughed Respiratory Culture - Final 03/15/21 19:05 Blood Culture (Wb) - Left Wrist Bacteria Detection (PCR) - Fi nal Coag Negative Staph 03/15/21 19:05 Blood Culture (Wb) - Left Wrist Blood Culture - Final Coag Negative Staph 03/15/21 18:53 Blood Culture (Wb) #2 - Anticubital Left Blood Culture - Final No growth in 5 days. 03/15/21 23:10 Urine, Random Legionella Antigen - Final 03/15/21 23:10 Urine, Random Streptococcus pneumoniae Antigen (M - Final 03/15/21 18:50 Nasal Secretion SARS-CoV-2 Antigen (Rapid) - Final SARS-CoV-2 (COVID 19) Meaningful Use Info Meaningful Use Diagnoses (Choose all that apply): None applicable Discharge Plan Admission Admit Date/Time: 03/15/21 20:04 Primary Reason for Your Visit: covid-19 pneumonia, acute on chronic respiratory failure Attending Provider: Jason Rizvi Primary Care Provider: Jason Leal Consulting Providers: Mark Marlow ; Joseph Wu Discharge Orders/Prescriptions Prescriptions: New acetaminophen [Tylenol] 325 mg Tablet 650 mg PO Q4H PRN PRN (Reason: Fever, pain 1-12/09) Qty: 0 RF: 0 albuterol sulfate 2.5 mg /3 mL (0.083 %) Solution For Nebulization 2.5 mg inhalation Q2H PRN PRN (Reason: Dyspnea, wheezing) Qty: 0 RF: 0 warfarin [Jantoven] 7.5 mg Tablet 7.5 mg PO DAILY@1700 Qty: 0 RF: 0 cholecalciferol (vitamin D3) [Vitamin D3] 50 mcg (2,000 unit) capsule 50 mcg PO DAILY Qty: 1 RF: 0 Continued aspirin [Adult Aspirin Regimen] 81 mg tablet,delayed release (DR/EC) 81 mg PO DAILY RF: 0 multivitamin [Multiple Vitamins] tablet 1 tab PO QDAY RF: 0 vitamin B complex [B Complex-Vitamin B12] Tablet 1 tab PO DAILY RF: 0 escitalopram oxalate 5 mg tablet 10 mg PO QHS RF: 0 ferrous sulfate [Feosol] 325 mg (65 mg iron) tablet 325 mg PO BID RF: 0 alum-mag hydroxide-simeth 200-200-20 mg/5 mL suspension 30 ml PO Q4H PRN (Reason: Heartburn) RF: 0 pantoprazole 20 mg tablet,delayed release (DR/EC) 40 mg PO DAILY RF: 0 ascorbate calcium (vitamin C) 500 mg tablet 500 mg PO DAILY RF: 0 bupropion HCl [Wellbutrin SR] 150 mg tablet sustained-release 12 hr 150 mg PO DAILY RF: 0 melatonin 3 mg capsule 5 mg PO HS PRN (Reason: Insomnia) RF: 0 furosemide 20 mg tablet 20 mg PO DAILY RF: 0 phenytoin sodium extended [Dilantin Extended] 100 mg capsule 100 mg PO TID RF: 0 metoprolol tartrate 25 mg tablet 37.5 mg PO BID RF: 0 Trelegy Ellipta 200-62.5-25 mcg blister with device 1 inh inhalation DAILY RF: 0 Discontinued acetaminophen [Tylenol] 325 mg tablet 325 mg PO Q6H PRN (Reason: Pain) RF: 0 warfarin 5 mg tablet 5 mg PO SUMOTUWEFRSA RF: 0 albuterol sulfate 2.5 MG/3 ML solution for nebulization 2.5 mg INHALATION Q4H PRN PRN (Reason: Sob &/Or Wheezing) RF: 0 Oxygen, Home [Home Oxygen] 2 - 4 lpm NASAL DAILY RF: 0 potassium chloride 20 mEq tablet,ER particles/crystals 20 meq PO BID RF: 0 cholecalciferol (vitamin D3) 1,250 mcg (50,000 unit) capsule 50,000 unit PO TUFR RF: 0 warfarin 6 mg tablet 6 mg PO TH RF: 0 prednisone 20 mg tablet 40 mg PO DAILY Qty: 14 RF: 0 prednisone 20 mg tablet 40 mg PO DAILY Qty: 10 RF: 0 albuterol sulfate 90 mcg/actuation HFA aerosol inhaler 2 puff INHALATION Q4H PRN PRN (Reason: Shortness Of Breath) Qty: 6.7 RF: 3 Referrals / Follow Up: Jason Leal DO [Primary Care Provider] - Disposition Disposition (needs filled in before D/C Order can be placed): Home Health Service Charges/Coding Visit Charges Inpatient E&M: 11593 Disch Hosp
--- NOTE | 2021-04-03 15:10 | CASEMGMT ---
Social Work Note ANAID updated that with walking pulse ox pt required 8 Liters of Oxygen. ANAID placed a call to Mayra at [facility] and updated her. Mayra states there concentrators go up to 10 liters so they can accept pt today. ANAID updated physician. ANAID in to speak with pt. ANAID introduced self and role at [facility]. ANAID informed pt that he will discharge to [facility] today. Pt didn't say anything to this worker, just shook his head up and down. ANAID informed pt that he will discharge to [facility] today and that this worker will update his sister. Pt again said nothing to this worker, just shook his head up and down. ANAID faxed completed discharge paperwork to [facility] including transfer to extended care facility, signed medication list, any scripts, COVID test/tool and [facility]. Original in SNF folder and copy on pt's chart. ANAID completed Con[facility]escent [facility] in HENS. Original in SNF folder and copy on pt's chart. ANAID spoke with RN, pt can transport via cot. ANAID accessed trip assist and arranged transportation via cot for 4:00pm. Transportation form completed and placed on SNF folder and copy on pt's chart. ANAID updated RN. ANAID placed a call to Mayra at [facility] and updated her on transportation time. ANAID placed a call to pt's sister Tejal and updated her on acceptance to [facility], discharge to [facility] and transportation time. Tejal states understanding. ANAID placed a call to pt's AYO Prater at [facility] and left message updating her on discharge. ANAID faxed discharge paperwork to [facility]. Plan: [facility] skilled today under Convalescent stay with Physician's transporting pt via cot at 4:00pm. Zainab Green ENVIRONMENTAL TECHNICAL OFFICER, EXTENSION PROFESSOR
--- NOTE | 2021-04-03 16:56 | NURSING ---
report given to nurse vásquez at [facility].
== END 2021-04-03 16:07 | disposition home health service (06) | DRG 177 ==
LOC: ED 19:04 → ICU 20:11 → MS3 03-16 15:48
PROVIDERS: Family Medicine; Hospitalist; Internal Medicine; Internal Medicine Critical Care Medicine; Student in an Organized Health Care Education/Training Program; Admitting Provider Family Medicine; Emergency Provider Emergency Medicine; PCP Family Medicine; Visit Provider Internal Medicine
DX: U07.1 COVID-19 (principal); J12.82 Pneumonia due to coronavirus disease 2019; J96.21 Acute and chronic respiratory failure with hypoxia; J44.0 Chronic obstructive pulmonary disease with (acute) lower respiratory infection; G40.909 Epilepsy, unspecified, not intractable, without status epilepticus; I48.91 Unspecified atrial fibrillation; D50.9 Iron deficiency anemia, unspecified; I11.0 Hypertensive heart disease with heart failure; I35.0 Nonrheumatic aortic (valve) stenosis; K21.9 Gastro-esophageal reflux disease without esophagitis; E78.5 Hyperlipidemia, unspecified; F41.9 Anxiety disorder, unspecified; Z87.891 Personal history of nicotine dependence; Z79.01 Long term (current) use of anticoagulants; F32.A Depression, unspecified; R53.81 Other malaise; F81.89 Other developmental disorders of scholastic skills; Z66 Do not resuscitate; Z99.81 Dependence on supplemental oxygen; Z86.718 Personal history of other venous thrombosis and embolism; Z79.899 Other long term (current) drug therapy; Z79.82 Long term (current) use of aspirin; Z95.2 Presence of prosthetic heart valve; Z87.19 Personal history of other diseases of the digestive system; F41.1 Generalized anxiety disorder
CPT/HCPCS: 36415; 36600; 71045; 80048; 80053; 80076; 80185; 82728; 82803; 83605; 83615; 83735; 83880; 84145; 84443; 84484; 85025; 85302; 85303; 85379; 85610; 86140; 87040; 87070; 87149; 87205; 87426; 87449; 93005; 94002; 94003; 94640; 94660; 94762; 97110; 97116; 97162; 97166; 97530; 97535; 97802; 99251; 99285; J7030; J7040; J7050; A4216; G0463; J0248; J1940; J2405

== ENCOUNTER 2021-05-24 23:45 | Outpatient (CLI) | payer MEDICARE, MEDICAID, SELFPAY | END 2021-05-24 23:59 | disposition home or self-care (01) | PROVIDERS: PCP Family Medicine; Referring Provider Nurse Practitioner Acute Care; Visit Provider Nurse Practitioner Acute Care | DX: G47.33 Obstructive sleep apnea (adult) (pediatric) (principal) | CPT/HCPCS: 95810 ==

== ENCOUNTER 2021-10-02 15:52 | Observation (INO) | payer MEDICARE, MEDICAID, SELFPAY ==
[2021-10-02] VITALS (12 sets, daily range): BP systolic 106–145; BP diastolic 60–80; PULSE 65–85; RESP 15–20; TEMP 36.6–37.2; O2SAT 93–96; BMI 25.1; BMI 26.6
--- NOTE | 2021-10-02 16:24 | EKG12_ITS ---
Test Reason : sob Blood Pressure : / mmHG Vent. Rate : 067 BPM Atrial Rate : 067 BPM P-R Int : 168 ms QRS Dur : 174 ms QT Int : 438 ms P-R-T Axes : 000 241 157 degrees QTc Int : 462 ms Consider Limb Lead Misplacement Interpretation as if Limb Leads are Correct Normal sinus rhythm Right bundle branch block T wave abnormality, consider lateral ischemia Recommend Repeat ECG Abnormal ECG Confirmed by GRAYSON HEARD, JALIL ([id number]), editorial assistant JAIDEN KANG ([id number]) on 10/03/2021 12:54:45 PM Referred By: Confirmed By:JALIL GALICIA MD
--- NOTE | 2021-10-02 16:28 | EDS_ITS ---
HPI History of Present Illness Chief Complaint: Shortness of Breath Informant: patient Narrative Narrative: Patient presenting to the ED via EMS for SOB as well as placement. Sister, Suzette, is currently working on placement with [facility]. Patient's home health aide recently quit and patient needs a higher level of care than he can get through home health. Apparently has a bed at [facility] however there is a delay in going through the [facility] for funding. Sister states that he not taking meds and became agitated when she asked him about it. Patient arrived to the ER covered in his own stool. He states he feels short of breath but states its been that way since he was in the hospital. I spoke to his sister and she says he was hospitalized in March for COVID. He is currently on 6 to 8 L of oxygen at baseline. Patient denies any other complaints at this time. Patient does live home alone. Chart review shows that patient has a history of mixed obstructive and restrictive ventilatory defect as well as chronic hypoxic respiratory failure and follows with Dr. Marlow pulmonology. [facility] Medical History Acute on chronic respiratory failure with hypoxia Alkaline phosphatase elevation Aortic valve disease Bilateral leg edema Cholelithiasis Chronic hypoxemic respiratory failure Chronic respiratory failure COPD (chronic obstructive pulmonary disease) COVID-19 virus infection DVT (deep venous thrombosis) Eczema of hand Essential hypertension GERD (gastroesophageal reflux disease) History of Coumadin therapy Hyperlipidemia Hypersomnia Hypersomnia Hypoxemic respiratory failure, chronic Iatrogenic pneumothorax Learning disability Mixed obstructive and restrictive ventilatory defect Mood disorder Obesity Seizure disorder Shortness of breath Stage 4 very severe COPD by GOLD classification Subtherapeutic phenytoin level varicose veins Ventricular septal defect Home Medications aspirin 81 mg tablet,delayed release (Adult Aspirin Regimen) 81 mg PO DAILY heart health 03/17/17 [History Last Taken Unknown] multivitamin (Multiple Vitamins tablet) 1 tab PO QDAY supplement 03/17/17 [History Last Taken Unknown] vitamin B complex (B Complex-Vitamin B12 tablet) 1 tab PO DAILY SUPPLEMENT 01/04/20 [History Last Taken Unknown] aluminum-mag hydroxide-simethicone 200 mg-200 mg-20 mg/5 mL oral susp 30 ml PO Q4H PRN Heartburn 04/18/20 [History Last Taken Unknown] ascorbate calcium (vitamin C) 500 mg tablet 500 mg PO DAILY supplement 04/18/20 [History Last Taken Unknown] bupropion HCl 150 mg tablet,12 hr sustained-release (Wellbutrin SR) 150 mg PO DAILY depression 04/18/20 [History Last Taken Unknown] escitalopram oxalate 5 mg tablet 10 mg PO QHS depression 04/18/20 [History Last Taken Unknown] ferrous sulfate 325 mg (65 mg iron) tablet (Feosol) 325 mg PO BID supplement 04/18/20 [History Last Taken Unknown] melatonin 3 mg capsule 5 mg PO HS PRN Insomnia 04/18/20 [History Last Taken Unknown] pantoprazole 20 mg tablet,delayed release 40 mg PO DAILY stomach 04/18/20 [History Last Taken Unknown] furosemide 20 mg tablet 20 mg PO DAILY water pill 10/26/20 [History Last Taken Unknown] metoprolol tartrate 25 mg tablet 37.5 mg PO BID heart rate 12/27/20 [History Last Taken Unknown] acetaminophen 325 mg tablet (Tylenol) 650 mg PO Q4H PRN PRN Fever, pain 1-12/09 #0 tabs 04/03/21 [Rx Last Taken Unknown] cholecalciferol (vitamin D3) 50 mcg (2,000 unit) capsule (Vitamin D3) 50 mcg PO DAILY #1 cap 04/03/21 [Rx Last Taken Unknown] warfarin 7.5 mg tablet (Jantoven) 7.5 mg PO DAILY@1700 #0 tabs 04/03/21 [Rx Last Taken Unknown] guaifenesin 100 mg/5 mL oral liquid 200 mg PO Q4H PRN 06/17/21 [History Last Taken Unknown] phenytoin sodium extended 100 mg capsule (Dilantin Extended) 100 mg PO TID seizures #90 caps 08/06/21 [Rx Last Taken Unknown] albuterol sulfate 90 mcg/actuation aerosol inhaler 2 puff inhalation Q4H PRN shortness of breath or wheezing #8.5 grams 09/19/21 [Rx Last Taken Unknown] fluticasone fur. 200 mcg-umeclid 62.5 mcg-vilant 25 mcg inhalat.powder (Trelegy Ellipta) 1 inh inhalation DAILY #60 ea 09/19/21 [Rx Last Taken Unknown] Allergy/AdvReac Type Severity Reaction Status Date / Time No Known Allergies Allergy Verified 10/02/21 16:18 Family History Father Lung cancer Osteoarthritis Mother Diabetes Thyroid disorder High cholesterol Breast cancer Grandmother Heart disease CVA (cerebral vascular accident) Surgical History H/O aortic root repair H/O aortic valve replacement H/O hernia repair History of mechanical aortic valve replacement (~12/06/12) S/P VSD repair Social History household members: none Smoking Status: Former smoker quit date: 03/02/12 pack-years: 40 Tobacco: How many years used: 35 second hand exposure: No alcohol intake: never substance use type: does not use ROS ROS ED Constitutional Constitutional ED: Denies chills or sweats Eyes Eyes: Denies change in vision ENT ENT ED: Denies rhinorrhea or sore throat Cardiovascular Cardiovascular: Denies chest pain, orthopnea or palpitations Respiratory/Chest Respiratory/Chest: Reports dyspnea and dyspnea on exertion; Denies cough or orthopnea Gastrointestinal Gastrointestinal: Denies abdominal pain, nausea or vomiting Musculoskeletal Musculoskeletal: Denies arthralgias or myalgias Integumentary Denies rash Neurologic Neurologic: Denies headache(s) or weakness Psychiatric Psychiatric: Denies anxiety Hematologic/Lymphatic Hematologic/Lymphatic: Reports easy bleeding and easy bruising EXAM Physical Exam Const Vital Signs: 10/02/21 15:53 10/02/21 16:17 10/02/21 16:47 Temperature 98.7 F Temperature Source Temporal Pulse Rate 81 69 Respiratory Rate 16 20 H Respiratory Effort Normal Non-Labored Respiratory Depth Normal Respiratory Pattern Normal Tachypnea Blood Pressure 139/80 H Blood Pressure Mean 99 Pulse Ox 93 Oxygen Delivery Method Nasal Cannula Oxygen Flow Rate (L/min) 6 Positive well nourished and well developed General Appearance ED: well developed, NAD and pallor HEENT Reports moist mucous membranes atraumatic Eyes PERRL and EOMs intact bilaterally Neck supple and no JVD Resp normal respiratory effort Auscultation: wheezes scattered wheezes and throughout and diminished lung sounds Cardio regular rate and regular rhythm Cardio Narrative: + murmur GI non-tender, non-distended and no masses Extremity normal to inspection Extremity Narrative: 2+ pedal edema General Extremety ED: Yes edema and tenderness General Extremity: edema Neuro oriented x3 Neuro Narrative: No focal deficits appreciated. Patient appears to be at his baseline. Motor Exam: general weakness Psych mental status grossly normal Skin no wounds General Skin Exam: pallor Rashes: no rashes MDM MDM MDM Narrative Medical decision making narrative: Patient is evaluated for shortness of breath and debility. Outpatient no longer care for himself at home in the area family is trying to get him into a jail. Patient's been noncompliant with his medications has multiple comorbidities. He is at his baseline breathing a very he is given a DuoNeb in the ER. CBC shows a mild anemia of 11.6 which is at his baseline. No signs of infection. His INR is subtherapeutic at 1.4. This is consistent with his medication noncompliance. Will be given a dose of weight-based Lovenox to bridge him until his Coumadin can be brought up to therapeutic range as he does have mechanical valve. BMP is remarkable for elevated carbon dioxide consistent with chronic respiratory failure. No other acute abnormalities. Is high since he troponin is 10. Patient denies any chest pain. EKG does show T wave inversion in 1 and aVL. He has a chronic interventricular conduction delay with bifascicular block however the T wave inversion lead I is new. Case is discussed with the patient's sister as well as case management and patient's will require hospitalization until jail placement can be obtained for him as he is not safe to go back home alone. Lab Data Attestation: I reviewed the patient's lab results. Labs: Laboratory Results - last 24 hr 10/02/21 10/02/21 10/02/21 16:35 16:35 16:35 WBC 5.4 RBC 3.68 L Hgb 11.6 L Hct 38.3 L MCV 104.1 H MCH 31.5 MCHC 30.3 L RDW Std Deviation 53.9 H RDW Coeff of Joseluis 14.1 Plt Count 133 L MPV 12.4 H Immature Gran % (Auto) 0.600 Neut % (Auto) 70.5 H Lymph % (Auto) 12.5 L Beckham % (Auto) 7.4 Eos % (Auto) 8.4 H Baso % (Auto) 0.6 Absolute Neuts (auto) 3.8 Absolute Lymphs (auto) 0.67 L Nucleated RBC % 0 PT 16.8 H INR 1.4 APTT 27.3 Sodium 139 Potassium 4.0 Chloride 102 Carbon Dioxide 38.0 H Anion Gap -1 L BUN 18 Creatinine 0.94 Estim Creat Clear Calc 96.31 Est GFR (MDRD) Af Amer 106 Est GFR (MDRD) Non-Af 88 BUN/Creatinine Ratio 19.1 Glucose 113 H Calcium 8.4 L Troponin I High Sens 10 Radiography Chest X-Ray - ED: 1 View, Read by ED Physician, Read by Radiologist and No Acute Disease Diagnostic Testing: Clinical Impression(s) from Imaging Studies Chest X-Ray 10/02/21 16:35 IMPRESSION: There are no acute findings. Electronically Signed: Umer Small MD at 16:48 EDT , Rhythm Strip Rhythm Strip: Sinus Rhythm Rate: 67 Ectopy: None EKG Initial EKG: Attestation: I personally reviewed and interpreted this EKG as follows: Interpretation: Sinus Rhythm Comments: Normal sinus rhythm at a rate of 67 Bifascicular block with right bundle branch block and left anterior fascicular block T wave inversions in 1, aVL and V1 T wave inversion lead I is new compared to prior EKG Patient also has a change in his R wave progression of lead I Discharge Plan Triage Chief Complaint: Shortness of Breath ED Provider: Larissa Soto Dx/Rx/DC Orders Clinical Impression: Shortness of breath, Chronic hypoxemic respiratory failure, Bilateral leg mag ma, History of mechanical aortic valve replacement, Subtherapeutic international normalized ratio (INR), Debility, unspecified Prescriptions: No Action aspirin [Adult Aspirin Regimen] 81 mg tablet,delayed release (DR/EC) 81 mg PO DAILY multivitamin [Multiple Vitamins] tablet 1 tab PO QDAY vitamin B complex [B Complex-Vitamin B12] Tablet 1 tab PO DAILY escitalopram oxalate 5 mg tablet 10 mg PO QHS ferrous sulfate [Feosol] 325 mg (65 mg iron) tablet 325 mg PO BID alum-mag hydroxide-simeth 200-200-20 mg/5 mL suspension 30 ml PO Q4H PRN (Reason: Heartburn) pantoprazole 20 mg tablet,delayed release (DR/EC) 40 mg PO DAILY ascorbate calcium (vitamin C) 500 mg tablet 500 mg PO DAILY bupropion HCl [Wellbutrin SR] 150 mg tablet sustained-release 12 hr 150 mg PO DAILY melatonin 3 mg capsule 5 mg PO HS PRN (Reason: Insomnia) guaifenesin 100 mg/5 mL liquid 200 mg PO Q4H PRN phenytoin sodium extended [Dilantin Extended] 100 mg capsule 100 mg PO TID Qty: 90 5RF albuterol sulfate 90 mcg/actuation HFA aerosol inhaler 2 puff inhalation Q4H PRN (Reason: shortness of breath or wheezing) Qty: 8.5 11RF Rx Instructions: administer with spacer Trelegy Ellipta 200-62.5-25 mcg blister with device 1 inh inhalation DAILY Qty: 60 11RF furosemide 20 mg tablet 20 mg PO DAILY metoprolol tartrate 25 mg tablet 37.5 mg PO BID Rx Instructions: 1.5 tablets bid acetaminophen [Tylenol] 325 mg Tablet 650 mg PO Q4H PRN PRN (Reason: Fever, pain 1-12/09) Qty: 0 0RF warfarin [Jantoven] 7.5 mg Tablet 7.5 mg PO DAILY@1700 Qty: 0 0RF cholecalciferol (vitamin D3) [Vitamin D3] 50 mcg (2,000 unit) capsule 50 mcg PO DAILY Qty: 1 0RF Primary Care Provider: Jason Leal Referrals: Jason Leal DO [Primary Care Provider] - Disposition Disposition: Acute Care Hospital [facility]
--- NOTE | 2021-10-02 16:35 | RAD_ITS ---
STUDY: X-RAY CHEST REASON FOR EXAM: Male, 55 years old. sob TECHNIQUE: XR Chest 1 View COMPARISON: 03.20.21 FINDINGS: There is no demonstrated pleural abnormality. There are multiple median sternotomy wires. Normal size heart. Normal mediastinum and joselito. Normal visualized pulmonary arteries. There is atherosclerotic calcification of the aortic arch with tortuosity. There are diffuse degenerative changes of the visualized thoracic spine. There is degenerative osteoarthritis of the bilateral shoulders. There is no demonstrated abnormality of the visualized soft tissue structures of the upper abdomen. RAD/Chest 1 View (Portable) IMPRESSION: There are no acute findings. Electronically Signed: Umer Small MD at 16:48 EDT ,
[2021-10-02] MEDS: Ipratropium/Albuterol Sulfate 3 ML AMPUL.NEB INHALATION ×2 (16:41→19:59)
--- NOTE | 2021-10-02 16:54 | CM.ED ---
ANAID Note ANAID was updated by that patient has a room at [facility] however they are working with board of DD. ANAID called Mirian, Acid Retort Operator at [facility]. She said that patient has been accepted but they are waiting for the PASS R Level 2 screen to come back from the Board of DD for placement. ANAID updated MD. Patient will need admitted. Tessa BERG
[2021-10-02 17:10] LABS: Anion Gap -1 (5-15); BUN 18 mg/dL (7-18); BUN/Creat Ratio 19.1 RATIO (10-20); Calcium,Total 8.4 mg/dL (8.5-10.1); Chloride 102 mmol/L (98-107); Creatinine, Serum 0.94 mg/dL (0.70-1.30); EST Glomerular Filtration Rate 88 mL/min (>60); Est Glom Filt Rate - Afr Amer 106 mL/min (>60); Estimated Creatinine Clearance 96.31 ml/min; Glucose 113 mg/dL (74-106); Sodium Level 139 mmol/L (136-145); Troponin-I HS 10 pg/mL (3.0-78.0)
[2021-10-02 17:13] LABS: Absolute Lymphocyte Count 0.67 X10^3/uL (0.83-4.51); Absolute Neutrophil Count 3.8 X10^3/uL (2.0-7.7); Basophil# 0.03 X10^3/uL; Basophil% 0.6 % (0-1); Eosinophil# 0.45 X10^3/uL; Eosinophils% 8.4 % (0-5); Hematocrit 38.3 % (40-54); Hemoglobin 11.6 g/dL (13.0-16.5); Lymphocyte # 0.67 X10^3/ul (0.83-4.51); Lymphocyte % 12.5 % (19-41); Mean Corp Hgb Conc 30.3 g/dL (32-36); Mean Corpuscular Hgb 31.5 pg (27.0-32.0); Mean Corpuscular Volume 104.1 fL (80-94); Mean Platelet Vol. 12.4 fl (6.2-12.0); Monocyte% 7.4 % (0-10); NRBC Flagged by Analyzer 0 % (0-5); Neutrophil % 70.5 % (47-70); Platelet Count 133 K/mm3 (150-450); RBC Distribution Width CV 14.1 % (11.6-14.6); RBC Distribution Width SD 53.9 fl (35.1-43.9); Red Blood Count 3.68 M/mm3 (4.6-6.2); White Blood Count 5.4 K/mm3 (4.4-11.0)
[2021-10-02 17:30] LABS: International Normalized Ratio 1.4; Prothrombin Time (Protime)PT. 16.8 SECONDS (11.7-14.9)
[2021-10-02 17:31] LABS: Partial Thromboplast Time 27.3 Seconds (24.1-36.2)
--- NOTE | 2021-10-02 17:56 | HP.PCM.HOS_ITS ---
Documented by User: Merlyn Jay NP, AVIONICS SYSTEMS INTEGRATION SPECIALIST-C 10/02/21 18:08 HPI - General General Date of Admission: 10/02/21 Date of Service: 10/02/21 Chief Complaint: Shortness of breath, SNF placement. HPI Narrative KAYLEEN AWAD, is a 55 M who presents to the emergency room due to failure to thrive. Patient reports shortness of breath however states she is short of breath at baseline. Denies cough, fever, chills. Denies wheezing. He reportedly is on 6 to 8 L of oxygen at baseline. He states his sister helps care for him and has been working on getting him to SNF, [facility]. However, this has been delayed through the [facility] of funding and in the meantime he is unable to care for self at home with home health. Patient was noted to be covered in stool on arrival to the emergency room. Patient denies chest pain. States several times he is hungry otherwise denies other symptoms or complaints. He has a past medical history of chronic hypoxia respiratory failure secondary to end-stage COPD, valvular heart disease, developmental disability, seizure disorder, hypertension, ANGEL, anxiety, depression. [facility] Medical History Acute on chronic respiratory failure with hypoxia Alkaline phosphatase elevation Aortic valve disease Bilateral leg edema Cholelithiasis Chronic hypoxemic respiratory failure Chronic respiratory failure COPD (chronic obstructive pulmonary disease) COVID-19 virus infection DVT (deep venous thrombosis) Eczema of hand Essential hypertension GERD (gastroesophageal reflux disease) History of Coumadin therapy Hyperlipidemia Hypersomnia Hypersomnia Hypoxemic respiratory failure, chronic Iatrogenic pneumothorax Learning disability Mixed obstructive and restrictive ventilatory defect Mood disorder Obesity Seizure disorder Shortness of breath Stage 4 very severe COPD by GOLD classification Subtherapeutic phenytoin level varicose veins Ventricular septal defect Home Medications aspirin 81 mg tablet,delayed release (Adult Aspirin Regimen) 81 mg PO DAILY heart health 03/17/17 [History Last Taken Unknown] multivitamin (Multiple Vitamins tablet) 1 tab PO QDAY supplement 03/17/17 [History Last Taken Unknown] vitamin B complex (B Complex-Vitamin B12 tablet) 1 tab PO DAILY SUPPLEMENT 01/04/20 [History Last Taken Unknown] aluminum-mag hydroxide-simethicone 200 mg-200 mg-20 mg/5 mL oral susp 30 ml PO Q4H PRN Heartburn 04/18/20 [History Last Taken Unknown] ascorbate calcium (vitamin C) 500 mg tablet 500 mg PO DAILY supplement 04/18/20 [History Last Taken Unknown] bupropion HCl 150 mg tablet,12 hr sustained-release (Wellbutrin SR) 150 mg PO DAILY depression 04/18/20 [History Last Taken Unknown] escitalopram oxalate 5 mg tablet 10 mg PO QHS depression 04/18/20 [History Last Taken Unknown] ferrous sulfate 325 mg (65 mg iron) tablet (Feosol) 325 mg PO BID supplement 04/18/20 [History Last Taken Unknown] melatonin 3 mg capsule 5 mg PO HS PRN Insomnia 04/18/20 [History Last Taken Unknown] pantoprazole 20 mg tablet,delayed release 40 mg PO DAILY stomach 04/18/20 [History Last Taken Unknown] furosemide 20 mg tablet 20 mg PO DAILY water pill 10/26/20 [History Last Taken Unknown] metoprolol tartrate 25 mg tablet 37.5 mg PO BID heart rate 12/27/20 [History Last Taken Unknown] acetaminophen 325 mg tablet (Tylenol) 650 mg PO Q4H PRN PRN Fever, pain 1-12/09 #0 tabs 04/03/21 [Rx Last Taken Unknown] cholecalciferol (vitamin D3) 50 mcg (2,000 unit) capsule (Vitamin D3) 50 mcg PO DAILY #1 cap 04/03/21 [Rx Last Taken Unknown] warfarin 7.5 mg tablet (Jantoven) 7.5 mg PO DAILY@1700 #0 tabs 04/03/21 [Rx Last Taken Unknown] guaifenesin 100 mg/5 mL oral liquid 200 mg PO Q4H PRN 06/17/21 [History Last Taken Unknown] phenytoin sodium extended 100 mg capsule (Dilantin Extended) 100 mg PO TID seizures #90 caps 08/06/21 [Rx Last Taken Unknown] albuterol sulfate 90 mcg/actuation aerosol inhaler 2 puff inhalation Q4H PRN shortness of breath or wheezing #8.5 grams 09/19/21 [Rx Last Taken Unknown] fluticasone fur. 200 mcg-umeclid 62.5 mcg-vilant 25 mcg inhalat.powder (Trelegy Ellipta) 1 inh inhalation DAILY #60 ea 09/19/21 [Rx Last Taken Unknown] Allergy/AdvReac Type Severity Reaction Status Date / Time No Known Allergies Allergy Verified 10/02/21 16:18 Family History Father Lung cancer Osteoarthritis Mother Diabetes Thyroid disorder High cholesterol Breast cancer Grandmother Heart disease CVA (cerebral vascular accident) Surgical History H/O aortic root repair H/O aortic valve replacement H/O hernia repair History of mechanical aortic valve replacement (~12/06/12) S/P VSD repair Social History household members: none current occupational status: disabled Smoking Status: Former smoker quit date: 03/02/12 pack-years: 40 Tobacco: How many years used: 35 second hand exposure: No alcohol intake: never substance use type: does not use ROS Constitutional Constitutional: Denies change in weight, chills, fatigue, fever(s) or weakness Cardiovascular Cardiovascular: Denies chest pain, edema, lightheadedness, palpitations or syncope Respiratory/Chest Respiratory/Chest: Reports dyspnea; Denies cough or wheezing Gastrointestinal Gastrointestinal: Denies abdominal pain, constipation, diarrhea, nausea or vomiting Genitourinary Genitourinary: Denies burning urination, difficulty urinating, dysuria, hematuria, urinary frequency, urinary incontinence or urinary urgency Musculoskeletal Musculoskeletal: Denies back pain, joint pain or muscle weakness Integumentary Integumentary: Denies erythema, lesions, rash or wounds Neurologic Neurologic: Denies abnormal speech, confusion, dizziness, focal weakness, numbness, paresthesias, seizure-like activity or syncope Psychiatric Psychiatric: Denies anxiety or depression Hematologic/Lymphatic Hematologic/Lymphatic: Denies anemia, easy bleeding or easy bruising Allergic/Immunologic Allergic/Immunologic: Denies hives or asthma Vital Signs Vital Signs Vital Signs: 10/02/21 15:53 10/02/21 16:17 10/02/21 16:47 Temperature 98.7 F Temperature Source Temporal Pulse Rate 81 69 Respiratory Rate 16 20 H Respiratory Effort Normal Non-Labored Respiratory Depth Normal Respiratory Pattern Normal Tachypnea Blood Pressure 139/80 H Blood Pressure Mean 99 Pulse Ox 93 Oxygen Delivery Method Nasal Cannula Oxygen Flow Rate (L/min) 6 Weight Weight: 185 lb 6.54 oz Body Mass Index (BMI) 25.1 Physical Exam Const alert and oriented x3 Constitutional Narrative: Unkempt, developmentally disabled HEENT normocephalic and moist oral mucous membranes Eyes PERRL, EOMs intact bilaterally and conjunctivae normal Neck no lymphadenopathy Resp clear to auscultation bilaterally Auscultation: diminished lung sounds Cardio regular rate, regular rhythm and no murmurs Peripheral Pulses: pulses 2+ throughout GI normal to inspection, nondistended, normoactive bowel sounds, non-tender and non-distended Extremity normal to inspection Skin no rashes or lesions noted Lesions: no lesions Rashes: no rashes Trauma: no lacerations or abrasions Neuro CN's II-XII intact bilaterally, no focal motor deficits, no sensory deficits noted and deep tendon reflexes 2+ bilaterally Psych mental status grossly normal and affect normal Results Lab / Micro Data Result Diagrams: 10/02/21 16:35 10/02/21 16:35 Labs: Laboratory Results - last 24 hr 10/02/21 16:35: WBC 5.4, RBC 3.68 L, Hgb 11.6 L, Hct 38.3 L, MCV 104.1 H, MCH 31.5, MCHC 30.3 L, RDW Std Deviation 53.9 H, RDW Coeff of Joseluis 14.1, Plt Count 133 L, MPV 12.4 H, Immature Gran % (Auto) 0.600, Neut % (Auto) 70.5 H, Lymph % (Auto) 12.5 L, [place] % (Auto) 7.4, Eos % (Auto) 8.4 H, Baso % (Auto) 0.6, Absolute Neuts (auto) 3.8, Absolute Lymphs (auto) 0.67 L, Nucleated RBC % 0 10/02/21 16:35: PT 16.8 H, INR 1.4, APTT 27.3 10/02/21 16:35: Sodium 139, Potassium 4.0, Chloride 102, Carbon Dioxide 38.0 H, Anion Gap -1 L, BUN 18, Creatinine 0.94, Estim Creat Clear Calc 96.31, Est GFR (MDRD) Af Amer 106, Est GFR (MDRD) Non-Af 88, BUN/Creatinine Ratio 19.1, Glucose 113 H, Calcium 8.4 L, Troponin I High Sens 10 Micro: Microbiology 10/02/21 16:30 Nasal Secretion SARS-CoV-2 Antigen (Rapid) - Final Rhythm Strip Rhythm Strip: Sinus Rhythm Rate: 67 Ectopy: None Radiology Impression Chest X-Ray 10/02/21 16:35 IMPRESSION: There are no acute findings. Electronically Signed: Umer Small MD at 16:48 EDT Reading Location ID and State: [facility] / [place] , Service support , Assessment & Plan Assessment/Plan (1) Subtherapeutic international normalized ratio (INR): (2) Debility, unspecified: PLAN: Plan 1. Failure to thrive, debility-underlying MRDD. Has bed at [facility] however [facility] for funding process has been delayed. Case management consult. PT/OT. 2. Chronic hypoxic respiratory failure secondary to end-stage COPD-follows with pulmonary medicine. On 6 to 8 L nasal cannula at baseline. Continue supplement oxygen to maintain O2 at above 90%. 3. Valvular heart disease-history of mitral valve replacement, on anticoagulation with Coumadin. INR subtherapeutic. Therapeutic Lovenox. 4. Seizure disorder-continue Dilantin. 5. Hypertension-stable, continue home regimen. 6. Anxiety/depression-on bupropion, escitalopram. 7. History of tobacco use-quit in 2014. DVT prophylaxis-Lovenox subcu This patient was seen by CURTIS Deng under the supervision of Dr. Hay. Time spent examining patient, reviewing data and subsequent management of care: 25 minutes Documented by User: Dr. Wyatt Hay MD 10/02/21 18:27 HPI - General General Date of Admission: 10/02/21 HPI Narrative KAYLEEN AWAD, is a 55 M who presents to the emergency room due to failure to thrive. Patient reports shortness of breath however states she is short of breath at baseline. Denies cough, fever, chills. Denies wheezing. He reportedly is on 6 to 8 L of oxygen at baseline. He states his sister helps care for him and has been working on getting him to SNF, [facility]. However, this has been delayed through the [facility] of funding and in the meantime he is unable to care for self at home with home health. Patient was noted to be covered in stool on arrival to the emergency room. Patient denies chest pain. States several times he is hungry otherwise denies other symptoms or complaints. He has a past medical history of chronic hypoxia respiratory failure secondary to end-stage COPD, valvular heart disease, developmental disability, seizure disorder, hypertension, ANGEL, anxiety, depres eduardo. Seen and examined Patient came to ER because his home health aide recently quit and patient needs higher level of care, delay in getting [facility] for funding. Patient has multiple medical problems including history of aortic root repair, mechanical aortic valve replacement with history of congenital VSD. Patient denies any chest pain tightness or pressure. He states mild shortness of breath more than his normal and feels mucus in the chest. He did not able to bring up the phlegm. Patient has history of 35 pack smoking, quit in 2014. Has [facility] [employer] prosthetic mechanical heart valve. INR is subtherapeutic. Last pulmonary visit in 09/19/2021. Last PFT in September 2018 shows partially reversible very severe mixed ventilatory defect with associated air trapping with worsening in FEV1 as compared to June 2017. Patient typically wears 5 to 6 L of oxygen /. On Trelegy Ellipta. Twelve-lead EKG done in ER shows T wave inversion in lead I and aVL. Normal s inus rhythm, bifascicular block, LAD at 67 bpm. QTc 462 ms. T inversion in lead I is new. First troponin negative. [facility] Medical History Acute on chronic respiratory failure with hypoxia Alkaline phosphatase elevation Aortic valve disease Bilateral leg edema Cholelithiasis Chronic hypoxemic respiratory failure Chronic respiratory failure COPD (chronic obstructive pulmonary disease) COVID-19 virus infection DVT (deep venous thrombosis) Eczema of hand Essential hypertension GERD (gastroesophageal reflux disease) History of Coumadin therapy Hyperlipidemia Hypersomnia Hypersomnia Hypoxemic respiratory failure, chronic Iatrogenic pneumothorax Learning disability Mixed obstructive and restrictive ventilatory defect Mood disorder Obesity Seizure disorder Shortness of breath Stage 4 very severe COPD by GOLD classification Subtherapeutic phenytoin level varicose veins Ventricular septal defect Home Medications aspirin 81 mg tablet,delayed release (Adult Aspirin Regimen) 81 mg PO DAILY heart health 03/17/17 [History Last Taken Unknown] multivitamin (Multiple Vitamins tablet) 1 tab PO QDAY supplement 03/17/17 [History Last Taken Unknown] vitamin B complex (B Complex-Vitamin B12 tablet) 1 tab PO DAILY SUPPLEMENT 01/04/20 [History Last Taken Unknown] aluminum-mag hydroxide-simethicone 200 mg-200 mg-20 mg/5 mL oral susp 30 ml PO Q4H PRN Heartburn 04/18/20 [History Last Taken Unknown] ascorbate calcium (vitamin C) 500 mg tablet 500 mg PO DAILY supplement 04/18/20 [History Last Taken Unknown] bupropion HCl 150 mg tablet,12 hr sustained-release (Wellbutrin SR) 150 mg PO DAILY depression 04/18/20 [History Last Taken Unknown] escitalopram oxalate 5 mg tablet 10 mg PO QHS depression 04/18/20 [History Last Taken Unknown] ferrous sulfate 325 mg (65 mg iron) tablet (Feosol) 325 mg PO BID supplement 04/18/20 [History Last Taken Unknown] melatonin 3 mg capsule 5 mg PO HS PRN Insomnia 04/18/20 [History Last Taken Unknown] pantoprazole 20 mg tablet,delayed release 40 mg PO DAILY stomach 04/18/20 [History Last Taken Unknown] furosemide 20 mg tablet 20 mg PO DAILY water pill 10/26/20 [History Last Taken Unknown] metoprolol tartrate 25 mg tablet 37.5 mg PO BID heart rate 12/27/20 [History Last Taken Unknown] acetaminophen 325 mg tablet (Tylenol) 650 mg PO Q4H PRN PRN Fever, pain 1-12/09 #0 tabs 04/03/21 [Rx Last Taken Unknown] cholecalciferol (vitamin D3) 50 mcg (2,000 unit) capsule (Vitamin D3) 50 mcg PO DAILY #1 cap 04/03/21 [Rx Last Taken Unknown] warfarin 7.5 mg tablet (Jantoven) 7.5 mg PO DAILY@1700 #0 tabs 04/03/21 [Rx Last Taken Unknown] guaifenesin 100 mg/5 mL oral liquid 200 mg PO Q4H PRN 06/17/21 [History Last Taken Unknown] phenytoin sodium extended 100 mg capsule (Dilantin Extended) 100 mg PO TID seizures #90 caps 08/06/21 [Rx Last Taken Unknown] albuterol sulfate 90 mcg/actuation aerosol inhaler 2 puff inhalation Q4H PRN shortness of breath or wheezing #8.5 grams 09/19/21 [Rx Last Taken Unknown] fluticasone fur. 200 mcg-umeclid 62.5 mcg-vilant 25 mcg inhalat.powder (Trelegy Ellipta) 1 inh inhalation DAILY #60 ea 09/19/21 [Rx Last Taken Unknown] Allergy/AdvReac Type Severity Reaction Status Date / Time No Known Allergies Allergy Verified 10/02/21 16:18 Family History Father Lung cancer Osteoarthritis Mother Diabetes Thyroid disorder High cholesterol Breast cancer Grandmother Heart disease CVA (cerebral vascular accident) Surgical History H/O aortic root repair H/O aortic valve replacement H/O hernia repair History of mechanical aortic valve replacement (~12/06/12) S/P VSD repair Social History household members: none current occupational status: disabled Smoking Status: Former smoker quit date: 03/02/12 pack-years: 40 Tobacco: How many years used: 35 second hand exposure: No alcohol intake: never substance use type: does not use ROS ROS Narrative 14 ROS reviewed and agree with below Mild redness in the groin and perineal region. Denies burning micturition or new lower intact symptoms. Mild leg swelling in both lower legs, chronic, no increase or decrease. Physical Exam Narrative Physical exam General: Awake, cooperative. MRDD on baseline HEENT: Atraumatic, PERRLA, EOMI, Normocephalic Oral: Oral mucosa dry.No Gingival or Mucosal Lesions/ Ulcerations Neck: Supple, No JVD, Negative Carotid Bruits Lungs: Air entry diminished in bilateral lung bases. Right basilar coarse crepitation. On 5 L of oxygen. Cardiovascular: Sinus rhythm, Normal S1, Normal S2, mechanical aortic valve click present on right second ICS. Midline open heart surgery scar Abdomen: Bowel Sounds Present, Soft, Non Tender, Non-Distended : No renal angle tenderness. No suprapubic tenderness. Extremities: Chronic bilateral pitting ankle edema, Capillary Refill Less than 3 Seconds Skin: Mild redness, erythema over bilateral groin region and perineal region Musculoskeletal: No Tenderness to Palpation of Joints or Extremities Neurological: Cranial nerves II-XII grossly intact, DTR 2+. Detailed neuro exam unobtainable. Psych/Mental Status: Flat affect. Results Lab / Micro Data Result Diagrams: 10/02/21 16:35 10/02/21 16:35 Assessment & Plan Assessment/Plan (1) Subtherapeutic international normalized ratio (INR): (2) Debility, unspecified: PLAN: Plan 1. Failure to thrive, debility-underlying MRDD. Has bed at [facility] however [facility] for funding process has been delayed. Case management consult. PT/OT. 2. Chronic hypoxic respiratory failure secondary to end-stage COPD-follows with pulmonary medicine. On 6 to 8 L nasal cannula at baseline. Continue supplement oxygen to maintain O2 at above 90%. 3. Valvular heart disease-history of mitral valve replacement, on anticoagulation with Coumadin. INR subtherapeutic. Therapeutic Lovenox. 4. Seizure disorder-continue Dilantin. 5. Hypertension-stable, continue home regimen. 6. Anxiety/depression-on bupropion, escitalopram. 7. History of tobacco use-quit in 2014. DVT prophylaxis-Lovenox subcu This patient was seen by ALEXANDRIA DengC under the supervision of Dr. Hay. Time spent examining patient, reviewing data and subsequent management of care: 25 minutes This patient was seen in conjunction with Merlyn BLACKMAN. I have independently interviewed and examined the patient and reviewed pertinent history, examination findings, laboratory and plan of management. I have reviewed the note and agree with the documented findings with the few additional points. In brief, patient is admitted for failure to thrive, quitting of healthcare aide with history of MRDD needs upgradation of care. Patient is also mild short of breath more than his baseline but oxygen requirement 5 L on baseline. 1. Acute on chronic shortness of breath possible atelectasis with history of chronic hypoxic respiratory failure, mixed obstructive and restrictive ventilatory defect and chronic smoker. Patient on bronchodilator every 4 hourly. Incentive spirometry, Pep and Mucinex. Does not seem to be in COPD exacerbation. T wave inversion in one lead I in absence of chest pain and normal troponin is not clinically significant. Repeat second troponin ordered. Patient does not have a history of coronary artery disease. Patient quit his smoking in 2014. 2. Failure to thrive, debility with history of MRDD 3. Multiple other comorbidities include congenital history of VSD, mechanical aortic valve replacement, aortic homograft status post VSD repair: INR subtherapeutic. Therapeutic Lovenox bridging with increasing warfarin 10 mg daily. Monitor INR and CBC daily. 4. Other comorbidities include seizure disorder, anxiety and depression and hypertension: I have discussed my assessment with AVIONICS SYSTEMS INTEGRATION SPECIALISTMerlyn and orders have been reviewed. CODE STATUS: Unverified full code. Patient does not understand the meaning of living will/advanced directive and CODE STATUS. Her power of nurse ldr is sister. Charges/Coding Visit Charges OBSV E&M: 18563 Initial observation care L3
[2021-10-02] MEDS: Enoxaparin 80 MG/0.8 ML Syringe SC (18:03)
[2021-10-02 18:24] LABS: Magnesium 1.9 mg/dL (1.6-2.6); Phosphorus 2.3 mg/dL (2.5-4.9)
[2021-10-02 19:15] LABS: Troponin-I HS 12 pg/mL (3.0-78.0)
--- NOTE | 2021-10-02 20:49 | EKG12_ITS ---
Test Reason : Timed Blood Pressure : / mmHG Vent. Rate : 083 BPM Atrial Rate : 083 BPM P-R Int : 152 ms QRS Dur : 170 ms QT Int : 406 ms P-R-T Axes : 086 -69 074 degrees QTc Int : 477 ms Poor data quality, interpretation may be adversely affected Normal sinus rhythm Right bundle branch block Left anterior fascicular block Bifascicular block Abnormal ECG When compared with ECG of 02-OCT-2021 16:45, MANUAL COMPARISON REQUIRED, DATA IS UNCONFIRMED Confirmed by MANJU HEARD, ANASTASIYA ([id number]), design editor JAIDEN KANG ([id number]) on 10/03/2021 2:07:56 PM Referred By: Confirmed By:ANASTASIYA NUNES MD
--- NOTE | 2021-10-02 22:34 | PCM.PN.BLA ---
Progress Note Attention drawn to phosphorus level of 2.3 and mag of 1.9 -replaced
[2021-10-02] MEDS: Menthol/Lanolin/Calamine/Znox 113 GM Tube 1 APPLIC TOPICAL (22:39)
[2021-10-02] MEDS: Phenytoin Na 100 MG Capsule PO (22:39)
[2021-10-02] MEDS: Metoprolol Tartrate 25 MG Tablet 37.5 MG PO (22:40)
[2021-10-02] MEDS: Escitalopram Oxalate 10 MG Tablet PO (22:41)
[2021-10-02] MEDS: guaiFENesin 1,200 MG Tablet 1200 MG PO (22:41)
[2021-10-02] MEDS: 0.9% Saline Lock 10 ML Syringe IV (22:46)
[2021-10-02] MEDS: proCHLORPERazine 10 MG/2 ML Vial 5 MG IV (22:46)
[2021-10-02] MEDS: Calcium Carbonate 500 MG Tablet 1000 MG PO (23:26)
[2021-10-03] VITALS (18 sets, daily range): BP systolic 115–129; BP diastolic 68–79; PULSE 64–88; RESP 16–20; TEMP 36.7–37; O2SAT 89–99
[2021-10-03 06:19] LABS: International Normalized Ratio 1.6; Prothrombin Time (Protime)PT. 18.5 SECONDS (11.7-14.9)
[2021-10-03] MEDS: Phenytoin Na 100 MG Capsule PO ×3 (06:27→22:18)
[2021-10-03 06:33] LABS: Absolute Neutrophil Count 3.3 X10^3/uL (2.0-7.7); Basophil# 0.03 X10^3/uL; Basophil% 0.6 % (0-1); Eosinophil# 0.49 X10^3/uL; Eosinophils% 10.2 % (0-5); Hematocrit 36.4 % (40-54); Hemoglobin 11.3 g/dL (13.0-16.5); Lymphocyte % 12.5 % (19-41); Mean Corpuscular Hgb 32.1 pg (27.0-32.0); Mean Corpuscular Volume 103.4 fL (80-94); Mean Platelet Vol. 12.7 fl (6.2-12.0); Monocyte# 0.41 X10^3/uL; Monocyte% 8.5 % (0-10); NRBC Flagged by Analyzer 0 % (0-5); Neutrophil # 3.25 X10^3/uL (2.7-7.7); Neutrophil % 67.8 % (47-70); POSITIVE DIFFERENTIAL YES; Platelet Count 115 K/mm3 (150-450); RBC Distribution Width CV 13.9 % (11.6-14.6); RBC Distribution Width SD 53.4 fl (35.1-43.9); Red Blood Count 3.52 M/mm3 (4.6-6.2); White Blood Count 4.8 K/mm3 (4.4-11.0)
[2021-10-03 06:34] LABS: Differential Indicated SCAN CRITERIA MET
[2021-10-03] MEDS: Ipratropium/Albuterol Sulfate 3 ML AMPUL.NEB INHALATION ×4 (06:49→19:00)
[2021-10-03 06:57] LABS: Anisocytosis 1+; Differential Comment SCANNED; Macrocytosis 1+
[2021-10-03 07:03] LABS: Phosphorus 3.2 mg/dL (2.5-4.9)
[2021-10-03 07:06] LABS: Anion Gap -1 (5-15); BUN 13 mg/dL (7-18); BUN/Creat Ratio 15.8 RATIO (10-20); Calcium,Total 8.1 mg/dL (8.5-10.1); Chloride 104 mmol/L (98-107); Cholesterol 175 mg/dL (200); Creatinine, Serum 0.82 mg/dL (0.70-1.30); EST Glomerular Filtration Rate 102 mL/min (>60); Est Glom Filt Rate - Afr Amer 124 mL/min (>60); Estimated Creatinine Clearance 100.59 ml/min; Glucose 103 mg/dL (74-106); High Density Lipoprotein 58 mg/dL; Magnesium 2.3 mg/dL (1.6-2.6); Potassium 4.3 mmol/L (3.5-5.1); Sodium Level 140 mmol/L (136-145); Thyroid Stim Hormone (TSH) 0.96 uIU/mL (0.358-3.74); Triglycerides 67 mg/dL; Very Low Density Lipoprotein 13 mg/dL (5-40)
--- NOTE | 2021-10-03 10:11 | CASEMGMT ---
Social Work Note ANAID reviewed chart. Pt has been accepted to [facility], PAS/RR was submitted, pt tripped the screen and will need approval from Board [facility] before pt can discharge to SNF. ANAID placed a call to [facility] and spoke with Mayra. Mayra confirms that they accepted pt, PAS/RR was submitted, and she needs to PAS/RR results before they can admit pt to SNF. Mayra states she spoke with a Gabby from [facility] and was told that Gabby hopes to have pt's assessment done by October 09. ANAID informed Mayra that this worker will call [facility] to see if they can do their assessment before October 09. ANAID placed a call to [facility] and left message with Gabby Daly, health services manager, regarding pt's PAS/RR. ANAID informed Gabby that pt is currently at [facility], pt is medically cleared for discharge, SNF needs Board of assessment so pt can admit to SNF. ANAID asked Gabby if the assessment can be completed before October 09 as pt is holding a bed at [facility] and again, pt is medically cleared for discharge. ANAID waiting for call back from Gabby at [facility]. ANAID faxed updated clinicals to Mayra at [facility]. Plan: [facility] pending PAS/RR review and assessment Zainab Green HEAT CURER, FLAP MAKER
[2021-10-03] MEDS: Furosemide 40 MG Tablet PO (10:51)
[2021-10-03] MEDS: Pantoprazole Sodium 40 MG Tablet PO (10:51)
[2021-10-03] MEDS: Ferrous Sulfate 325 MG Tablet PO (10:51)
[2021-10-03] MEDS: Ascorbic Acid 500 MG Tablet PO (10:51)
[2021-10-03] MEDS: Metoprolol Tartrate 25 MG Tablet 37.5 MG PO ×2 (10:52→22:19)
[2021-10-03] MEDS: Cholecalciferol (VIT D3) 25 MCG TABLET (1,000 UNITS) 50 MCG PO (10:52)
[2021-10-03] MEDS: Vitamin B Comp W-C Capsule 1 CAP PO (10:52)
[2021-10-03] MEDS: guaiFENesin 1,200 MG Tablet 1200 MG PO ×2 (10:52→22:21)
[2021-10-03] MEDS: buPROPion (XL) 150 MG TABLET.XL PO (10:53)
[2021-10-03] MEDS: Multivitamins,Therapeutic Tablet 1 TABLET PO (10:54)
[2021-10-03] MEDS: Menthol/Lanolin/Calamine/Znox 113 GM Tube 1 APPLIC TOPICAL ×4 (10:54→22:18)
[2021-10-03] MEDS: Aspirin E.C. 81 MG Tablet PO (10:54)
[2021-10-03] MEDS: Na Biphos/Potassium Phosphate PACKET 1 PACKET PO ×4 (10:57→22:21)
--- NOTE | 2021-10-03 12:24 | PN.HOSP_ITS ---
Objective Data Objective Data Vital Signs: Vital Signs Temp Pulse Resp BP Pulse Ox O2 Del Method O2 Flow Rate 98.2 F 69 20 H 129/79 H 95 Nasal Cannula 4 10/03/21 10:44 10/03/21 10:52 10/03/21 10:44 10/03/21 10:44 10/03/21 10:50 10/03/21 10:50 10/03/21 10:50 FiO2 50 10/02/21 23:05 Oxygen Flow Rate (L/min) 4 Oxygen Delivery Method Nasal Cannula Weight: 179 lb 7.3 oz Body Mass Index (BMI) 26.6 Intake & Output: Intake and Output for Last 24 Hours 10/01/21 10/02/21 10/03/21 23:59 23:59 23:59 Intake Total 102 / 102 Output Total 200 / 200 300 / 300 Balance -200 / -200 -198 / -198 Lab / Micro Data Result Diagrams: 10/03/21 05:35 10/03/21 05:35 Labs: Laboratory Results - last 24 hr 10/02/21 16:35: WBC 5.4, RBC 3.68 L, Hgb 11.6 L, Hct 38.3 L, MCV 104.1 H, MCH 31.5, MCHC 30.3 L, RDW Std Deviation 53.9 H, RDW Coeff of Joseluis 14.1, Plt Count 133 L, MPV 12.4 H, Immature Gran % (Auto) 0.600, Neut % (Auto) 70.5 H, Lymph % (Auto) 12.5 L, Anson % (Auto) 7.4, Eos % (Auto) 8.4 H, Baso % (Auto) 0.6, Absolu te Neuts (auto) 3.8, Absolute Lymphs (auto) 0.67 L, Nucleated RBC % 0 10/02/21 16:35: PT 16.8 H, INR 1.4, APTT 27.3 10/02/21 16:35: Sodium 139, Potassium 4.0, Chloride 102, Carbon Dioxide 38.0 H, Anion Gap -1 L, BUN 18, Creatinine 0.94, Estim Creat Clear Calc 96.31, Est GFR (MDRD) Af Amer 106, Est GFR (MDRD) Non-Af 88, BUN/Creatinine Ratio 19.1, Glucose 113 H, Calcium 8.4 L, Troponin I High Sens 10 10/02/21 16:36: Phosphorus 2.3 L, Magnesium 1.9 10/02/21 18:45: Troponin I High Sens 12 10/03/21 05:35: WBC 4.8, RBC 3.52 L, Hgb 11.3 L, Hct 36.4 L, MCV 103.4 H, MCH 32.1 H, MCHC 31.0 L, RDW Std Deviation 53.4 H, RDW Coeff of Joseluis 13.9, Plt Count 115 L, MPV 12.7 H, Immature Gran % (Auto) 0.400, Neut % (Auto) 67.8, Lymph % (Auto) 12.5 L, Anson % (Auto) 8.5, Eos % (Auto) 10.2 H, Baso % (Auto) 0.6, Absolute Neuts (auto) 3.3, Absolute Lymphs (auto) 0.60 L, Nucleated RBC % 0, Differential Comment SCANNED, Anisocytosis 1+, Macrocytosis 1+ 10/03/21 05:35: PT 18.5 H, INR 1.6 10/03/21 05:35: Sodium 140, Potassium 4.3, Chloride 104, Carbon Dioxide 37.0 H, Anion Gap -1 L, BUN 13, Creatinine 0.82, Estim Creat Clear Calc 100.59, Est GFR (MDRD) Af Amer 124, Est GFR (MDRD) Non-Af 102, BUN/Creatinine Ratio 15.8, Glucose 103, Calcium 8.1 L, Magnesium 2.3, Triglycerides 67, Cholesterol 175, LDL Cholesterol 104, VLDL Cholesterol 13, HDL Cholesterol 58, TSH 0.96 10/03/21 05:35: Phosphorus 3.2 Micro: Microbiology 10/02/21 16:30 Nasal Secretion SARS-CoV-2 Antigen (Rapid) - Final Radiography Diagnostic Testing: Radiology Impression Chest X-Ray 10/02/21 16:35 IMPRESSION: There are no acute findings. Electronically Signed: Umer Small MD at 16:48 EDT , Rhythm Strip Rhythm Strip: Sinus Rhythm Rate: 67 Ectopy: None Physical Exam Narrative Physical exam General: Awake, cooperative. MRDD on baseline HEENT: Atraumatic, PERRLA, EOMI, Normocephalic Oral: Oral mucosa dry.No Gingival or Mucosal Lesions/ Ulcerations Neck: Supple, No JVD, Negative Carotid Bruits Lungs: Air entry diminished in bilateral lung bases. Coarse crepitations improved today. Since patient on baseline oxygenation Cardiovascular: Sinus rhythm, Normal S1, Normal S2, mechanical aortic valve click present on right second ICS. Midline open heart surgery scar Abdomen: Bowel Sounds Present, Soft, Non Tender, Non-Distended : No renal angle tenderness. No suprapubic tenderness. Extremities: Chronic bilateral pitting ankle edema, Capillary Refill Less than 3 Seconds Skin: Mild redness, erythema over bilateral groin region and perineal region, looks much better Musculoskeletal: No Tenderness to Palpation of Joints or Extremities Neurological: Cranial nerves II-XII grossly intact, DTR 2+. Detailed neuro exam unobtainable. Psych/Mental Status: Flat affect. Assessment & Plan Assessment/Plan (1) Subtherapeutic international normalized ratio (INR): (2) Debility, unspecified: PLAN: Plan The patient is admitted for failure to thrive, quitting of healthcare aide with history of MRDD needs upgradation of care.? Patient is also mild short of breath more than his baseline but oxygen requirement 5 L on baseline. 1. Failure to thrive, debility-underlying MRDD. Has bed at [facility] however [facility] for funding process has been delayed. Case management consult. PT/OT. 2. Chronic hypoxic respiratory failure secondary to end-stage COPD, acute on chronic shortness of breath: Shortness of breath has improved. Continue bronchodilator, Mucinex, Pep and incentive spirometry. Not in COPD exacerbation on 6 to 8 L nasal cannula at baseline. Last PFT showed mixed obstructive and restrictive ventilatory defect and chronic smoker.? ? T wave inversion in one lead I in absence of chest pain and normal troponin is not clinically significant.? Repeat second troponin normal repeat EKG did not show appreciable change. ACS ruled out. Patient does not have chest pain, pressure or tightness.? Patient does not have a history of coronary artery disease.? Patient quit his smoking in 2014. 3.Congenital history of VSD, mechanical aortic valve replacement, aortic homograft status post VSD repair. 8/4 INR subtherapeutic increased from 1.4-1.6. Therapeutic Lovenox 1 mg/kg body weight culture already ordered. On warfarin 10 mg daily. 4. Seizure disorder with with history of MRDD-continue Dilantin. Serum phenytoin level tomorrow a.m. 5. Hypertension-stable, continue home regimen. 6. Anxiety/depression-on bupropion, escitalopram. 7. History of tobacco use-quit in 2014. DVT prophylaxis-Lovenox subcu CODE STATUS: Unverified full code. Patient does not understand the meaning of living will/advanced directive and CODE STATUS. Her power of civil litigation attorney is sister. Charges/Coding Visit Charges OBSV E&M: 12460 Initial observation care L2
--- NOTE | 2021-10-03 13:20 | CASEMGMT ---
QUIN ROLLINS NOTE: Intro role of CM to patient and [facility] form explained re: Observation status for treatment of debility.? Explained hospitalization will be paid per? his insurance policy for Outpatient billing?and condition will continue to be evaluated for Inpt necessity. Also let pt know that [facility] sends paper in the billing packet with their phone number if questions arise. Discussed Pharmacy section of [facility] form and self administered medication guideline.? Pt verbalizes understanding and does not have any questions. ?Form signed, copy made and placed in chart, and original given to pt. Yasmany KRISHNAMURTHYN RN CM
[2021-10-03] MEDS: Enoxaparin 80 MG/0.8 ML Syringe SC ×2 (14:51→22:21)
--- NOTE | 2021-10-03 15:00 | CASEMGMT ---
Social Work Note ANAID received call from Mayra at [facility] stating she received an email that Gabby Posadas, Board of DD, had faxed a letter to [facility] stating pt was approved for SNF Level of care and pt has to admit within 24 hours of when the letter was sent. Mayra states that she is reaching out to Gabby again to see if the letter could be sent again as Mayra does not know where the letter is at. ANAID asked Mayra that if she gets the letter if she could fax it to [facility] too so [facility] has it on file that pt was approved SNF. ANAID informed Mayra that this worker will also reach out to Gabby to see if she can fax/email the letter to this worker. Mayra states that if the letter is received tonight, pt can admit tonight, and if it not received tonight, pt should come first thing tomorrow morning. ANAID placed a call to Gabby Posadas at [facility] Board of DD and left message requesting copy of approval level be faxed or email to this worker so [facility] can have copy of the letter too. ANAID waiting for approval letter from Board of DD. Zainab Green SYRUP SHED SUPERVISOR, ROLL MACHINE OPERATOR
--- NOTE | 2021-10-03 17:10 | CASEMGMT ---
Social Work Note ANAID received copy of approval letter from Board of DD. (Mayra with [facility] faxed the letter to this worker). ANAID placed a call to [facility] and spoke with staff, [facility] is already gone but staff states they are aware pt is discharging to them tonight. ANAID updated physician. Plan: [facility]. Zainab Green GOLF COURSE SUPERINTENDENT, CHEMICAL TECHNICIAN
--- NOTE | 2021-10-03 19:01 | CASEMGMT ---
Addendum entered by Zainab Green 10/03/21 19:21: SW reviewed chart and pt has CM Rox Prater through [facility]. SW placed a call to Rox Prater and left message updating her on pt's admission to [facility] and plan to discharge to [facility]. Original Note: Social Work Note SW received message from physician, pt to discharge first thing tomorrow morning. ANAID updated production repairer. ANAID placed a call to Gabby at [facility] and left message letting her know that approval letter was received by this worker but that pt is not able to discharge tonight and asked what time pt has to be at [facility] by tomorrow to be in the 24 hour time period. ANAID asked Gabby to call ANAID tomorrow. Plan: [facility] tomorrow Zainab Green BELLSTAFF, GRADUATE ADVISOR
[2021-10-03] MEDS: Escitalopram Oxalate 10 MG Tablet PO (22:20)
[2021-10-04] VITALS (8 sets, daily range): BP systolic 123–141; BP diastolic 72–78; PULSE 68–81; RESP 17–20; TEMP 36.7–37.2; O2SAT 93–94
[2021-10-04] MEDS: Acetaminophen 325 MG Tablet 650 MG PO (02:53)
[2021-10-04 04:31] LABS: Absolute Lymphocyte Count 0.72 X10^3/uL (0.83-4.51); Absolute Neutrophil Count 3.5 X10^3/uL (2.0-7.7); Basophil# 0.03 X10^3/uL; Basophil% 0.6 % (0-1); Eosinophil# 0.58 X10^3/uL; Eosinophils% 10.8 % (0-5); Hematocrit 36.5 % (40-54); Hemoglobin 11.5 g/dL (13.0-16.5); Lymphocyte # 0.72 X10^3/ul (0.83-4.51); Lymphocyte % 13.4 % (19-41); Mean Corp Hgb Conc 31.5 g/dL (32-36); Mean Corpuscular Hgb 32.4 pg (27.0-32.0); Mean Corpuscular Volume 102.8 fL (80-94); Mean Platelet Vol. 12.4 fl (6.2-12.0); Monocyte# 0.52 X10^3/uL; Monocyte% 9.7 % (0-10); NRBC Flagged by Analyzer 0 % (0-5); Neutrophil # 3.49 X10^3/uL (2.7-7.7); Neutrophil % 65.1 % (47-70); Platelet Count 126 K/mm3 (150-450); RBC Distribution Width CV 13.9 % (11.6-14.6); RBC Distribution Width SD 53.1 fl (35.1-43.9); Red Blood Count 3.55 M/mm3 (4.6-6.2); White Blood Count 5.4 K/mm3 (4.4-11.0)
[2021-10-04 04:45] LABS: International Normalized Ratio 1.8; Prothrombin Time (Protime)PT. 20.1 SECONDS (11.7-14.9)
[2021-10-04 04:52] LABS: Anion Gap 2 (5-15); BUN 16 mg/dL (7-18); BUN/Creat Ratio 16.4 RATIO (10-20); Chloride 100 mmol/L (98-107); Creatinine, Serum 0.98 mg/dL (0.70-1.30); EST Glomerular Filtration Rate 84 mL/min (>60); Est Glom Filt Rate - Afr Amer 102 mL/min (>60); Estimated Creatinine Clearance 84.17 ml/min; Glucose 110 mg/dL (74-106); Potassium 4.3 mmol/L (3.5-5.1); Sodium Level 139 mmol/L (136-145)
[2021-10-04 04:56] LABS: Phenytoin (Dilantin) Level 4.5 mL (10.0-20.0)
[2021-10-04] MEDS: Phenytoin Na 100 MG Capsule PO (06:05)
[2021-10-04] MEDS: Ipratropium/Albuterol Sulfate 3 ML AMPUL.NEB INHALATION (06:48)
--- NOTE | 2021-10-04 07:02 | PCM.TXEXTCAR ---
Diet Diet Order/Speech Therapy: 10/02/21 18:17 Diet: Cardiac - Heart Healthy Food consistency:: Regular Liquid Consistency:: Regular/Thin Routine Orders/Code Status Suppository Type: Dulcolax 10mg Suppository Frequency: Daily PRN Code Status: Full Code Therapies Weight Bearing: Weight bearing as tolerated Extremity Affected:: Bilateral Lower Physical Therapy: Eval and Treat Occupational Therapy: Eval and Treat Speech Therapy: Eval and Treat Problem/Diagnosis (1) Subtherapeutic international normalized ratio (INR): Status: Acute Code(s): R79.1 - Abnormal coagulation profile (2) Debility, unspecified: Status: Acute Code(s): R53.81 - Other malaise Allergies/Procedures Done in Hospital Allergies No Known Allergies Allergy (Verified 10/02/21 16:18) Type of Care/Length of Stay Estimated LOS: Convalescent Care Less Than 30 days Type of Care Needed: Skilled Rehab Potential: Good Prognosis: Good Additional Orders/Day of Discharge Day of Discharge: 10/04/21 Discharge Plan Admission Admit Date/Time: 10/02/21 17:48 Primary Reason for Your Visit: Failure to thrive Attending Provider: Wyatt Hay Primary Care Provider: Jason Leal Discharge Orders/Prescriptions Prescriptions: New ipratropium-albuterol 0.5 mg-3 mg(2.5 mg base)/3 mL Solution For Nebulization 3 ml inhalation Q4HWA.RT PRN (Reason: SOB) Qty: 0 0RF sennosides-docusate sodium [Stool Softener-Stimulant Laxat] 8.6-50 mg Tablet 2 tab PO BID PRN PRN (Reason: Constipation) Qty: 0 0RF ferrous sulfate [FeroSul] 325 mg (65 mg iron) Tablet 325 mg PO DAILY@1200 Qty: 0 0RF warfarin [Jantoven] 5 mg Tablet 10 mg PO DAILY@1700 Qty: 0 0RF enoxaparin 80 mg/0.8 mL Syringe 80 mg subcut Q12 Qty: 0 0RF Rx Instructions: Continue until INR is therapeutic 2.0 for 2 days Mucus Relief ER 1,200 mg Tablet Extended Release 12hr 1,200 mg PO BID Qty: 0 0RF menthol-zinc oxide [Calmoseptine] 0.44-20.6 % Ointment 1 applic topical 4X/DAY Qty: 0 0RF Protocol: *Topical Application Instructions APPLICATION INSTRUCTIONS: apply to groin and bilat buttocks furosemide 40 mg Tablet 40 mg PO DAILY Qty: 0 0RF Rx Instructions: Hold if creatinine is more than 30% more than baseline Continued aspirin [Adult Aspirin Regimen] 81 mg tablet,delayed release (DR/EC) 81 mg PO DAILY multivitamin [Multiple Vitamins] tablet 1 tab PO QDAY vitamin B complex [B Complex-Vitamin B12] Tablet 1 tab PO DAILY escitalopram oxalate 5 mg tablet 10 mg PO QHS alum-mag hydroxide-simeth 200-200-20 mg/5 mL suspension 30 ml PO Q4H PRN (Reason: Heartburn) pantoprazole 20 mg tablet,delayed release (DR/EC) 40 mg PO DAILY ascorbate calcium (vitamin C) 500 mg tablet 500 mg PO DAILY bupropion HCl [Wellbutrin SR] 150 mg tablet sustained-release 12 hr 150 mg PO DAILY melatonin 3 mg capsule 5 mg PO HS PRN (Reason: Insomnia) phenytoin sodium extended [Dilantin Extended] 100 mg capsule 100 mg PO TID Qty: 90 5RF albuterol sulfate 90 mcg/actuation HFA aerosol inhaler 2 puff inhalation Q4H PRN (Reason: shortness of breath or wheezing) Qty: 8.5 11RF Rx Instructions: administer with spacer Trelegy Ellipta 200-62.5-25 mcg blister with device 1 inh inhalation DAILY Qty: 60 11RF metoprolol tartrate 25 mg tablet 37.5 mg PO BID Rx Instructions: 1.5 tablets bid acetaminophen [Tylenol] 325 mg Tablet 650 mg PO Q4H PRN PRN (Reason: Fever, pain 1-12/09) Qty: 0 0RF cholecalciferol (vitamin D3) [Vitamin D3] 50 mcg (2,000 unit) capsule 50 mcg PO DAILY Qty: 1 0RF Discontinued ferrous sulfate [Feosol] 325 mg (65 mg iron) tablet 325 mg PO BID guaifenesin 100 mg/5 mL liquid 200 mg PO Q4H PRN (Reason: Cough) furosemide 20 mg tablet 20 mg PO DAILY warfarin [Jantoven] 7.5 mg Tablet 7.5 mg PO DAILY@1700 Qty: 0 0RF Referrals / Follow Up: Jason Leal DO [Primary Care Provider] - Within 2 Weeks Disposition Disposition (needs filled in before D/C Order can be placed): Long-Term Facility
[2021-10-04] MEDS: Vitamin B Comp W-C Capsule 1 CAP PO (09:11)
[2021-10-04] MEDS: Aspirin E.C. 81 MG Tablet PO (09:11)
[2021-10-04] MEDS: Cholecalciferol (VIT D3) 25 MCG TABLET (1,000 UNITS) 50 MCG PO (09:11)
[2021-10-04] MEDS: Multivitamins,Therapeutic Tablet 1 TABLET PO (09:11)
[2021-10-04] MEDS: Furosemide 40 MG Tablet PO (09:11)
[2021-10-04] MEDS: Pantoprazole Sodium 40 MG Tablet PO (09:12)
[2021-10-04] MEDS: guaiFENesin 1,200 MG Tablet 1200 MG PO (09:12)
[2021-10-04] MEDS: Ascorbic Acid 500 MG Tablet PO (09:12)
[2021-10-04] MEDS: Enoxaparin 80 MG/0.8 ML Syringe SC (09:12)
[2021-10-04] MEDS: buPROPion (XL) 150 MG TABLET.XL PO (09:13)
[2021-10-04] MEDS: Menthol/Lanolin/Calamine/Znox 113 GM Tube 1 APPLIC TOPICAL (09:14)
[2021-10-04] MEDS: Metoprolol Tartrate 25 MG Tablet 37.5 MG PO (09:16)
--- NOTE | 2021-10-04 09:24 | CASEMGMT ---
Addendum entered by Bernie Zapien 10/04/21 10:08: Telephone call to patient daughter, Suzette. This social media intern updated Suzette on transportation time and date. Original Note: Social Work Voicemail received from Board of Gabby NORIEGA. Gabby confirms that patient is able to discharge [facility] today. Telephone call to Mayra Chaudhry. Mayra confirms to be able to accept patient today. This social media intern faxed transfer to extended care form, signed medication, discharge summary, and DD/PASRR determination, COVID screening tool, and COVID test results to [facility]. [place] set up transportation for 11:30am today, this social media intern communicating transportation time to Mayra. Transportation form completed and placed with patient discharge information. Proposed discharge date: 10/04/2021 [facility] moreno, [facility]
--- NOTE | 2021-10-04 10:10 | DS.PCM_ITS ---
Providers Date of Admission: 10/02/21 Date of Discharge: 10/04/21 Primary Care Physician: Dr. Jason Leal DO Reason For Visit: SOB, S/P AVR Diagnosis Discharge Diagnosis (1) Subtherapeutic international normalized ratio (INR): Status: Acute Code(s): R79.1 - Abnormal coagulation profile (2) Debility, unspecified: Status: Acute Code(s): R53.81 - Other malaise Medications at Discharge Home Medications aspirin 81 mg tablet,delayed release (Adult Aspirin Regimen) 81 mg PO DAILY heart health 03/17/17 multivitamin (Multiple Vitamins tablet) 1 tab PO QDAY supplement 03/17/17 vitamin B complex (B Complex-Vitamin B12 tablet) 1 tab PO DAILY SUPPLEMENT 01/04/20 aluminum-mag hydroxide-simethicone 200 mg-200 mg-20 mg/5 mL oral susp 30 ml PO Q4H PRN Heartburn 04/18/20 ascorbate calcium (vitamin C) 500 mg tablet 500 mg PO DAILY supplement 04/18/20 bupropion HCl 150 mg tablet,12 hr sustained-release (Wellbutrin SR) 150 mg PO DAILY depression 04/18/20 escitalopram oxalate 5 mg tablet 10 mg PO QHS depression 04/18/20 melatonin 3 mg capsule 5 mg PO HS PRN Insomnia 04/18/20 pantoprazole 20 mg tablet,delayed release 40 mg PO DAILY stomach 04/18/20 metoprolol tartrate 25 mg tablet 37.5 mg PO BID heart rate 12/27/20 acetaminophen 325 mg tablet (Tylenol) 650 mg PO Q4H PRN PRN Fever, pain 1-12/09 #0 tabs 04/03/21 cholecalciferol (vitamin D3) 50 mcg (2,000 unit) capsule (Vitamin D3) 50 mcg PO DAILY #1 cap 04/03/21 phenytoin sodium extended 100 mg capsule (Dilantin Extended) 100 mg PO TID valerie gonzalez #90 caps 08/06/21 albuterol sulfate 90 mcg/actuation aerosol inhaler 2 puff inhalation Q4H PRN shortness of breath or wheezing #8.5 grams 09/19/21 fluticasone fur. 200 mcg-umeclid 62.5 mcg-vilant 25 mcg inhalat.powder (Trelegy Ellipta) 1 inh inhalation DAILY #60 ea 09/19/21 enoxaparin 80 mg/0.8 mL subcutaneous syringe 80 mg (0.8 mL) subcut Q12 #0 mL 10/04/21 ferrous sulfate 325 mg (65 mg iron) tablet (FeroSul) 325 mg PO DAILY@1200 #0 tabs 10/04/21 furosemide 40 mg tablet 40 mg PO DAILY #0 tabs 10/04/21 guaifenesin 1,200 mg tablet, extended release 12 hr (Mucus Relief ER) 1,200 mg P O BID #0 tabs 10/04/21 ipratropium 0.5 mg-albuterol 3 mg (2.5 mg base)/3 mL nebulization soln 3 ml inhalation Q4HWA.RT PRN SOB #0 mL 10/04/21 menthol 0.44 %-zinc oxide 20.6 % topical ointment (Calmoseptine) 1 applic topical 4X/DAY #0 grams 10/04/21 sennosides 8.6 mg-docusate sodium 50 mg tablet (Stool Softener-Stimulant Laxative) 2 tab PO BID PRN PRN Constipation #0 tabs 10/04/21 warfarin 5 mg tablet (Jantoven) 10 mg PO DAILY@1700 #0 tabs 10/04/21 Hospital Course Summary of Care Provided Hospital Course: The patient is admitted for failure to thrive, quitting of healthcare aide with history of MRDD needs upgradation of care.? Patient is also mild short of breath more than his baseline but oxygen requirement 5 L on baseline. 1. Failure to thrive, debility-underlying MRDD. Has bed at [facility] however [facility] for funding process has been delayed. Case management consult. PT/OT. 10/04: Discussed with the case manager specialist and director social service. Patient is discharged to SNF. 2. Chronic hypoxic respiratory failure secondary to end-stage COPD, acute on chronic shortness of breath: Shortness of breath has improved. Continue bronchodilator, Mucinex, Pep and incentive spirometry. Not in COPD exacerbation on 6 to 8 L nasal cannula at baseline. Last PFT showed mixed obstructive and restrictive ventilatory defect and chronic smoker.? ? T wave inversion in one lead I in absence of chest pain and normal troponin is not clinically significant.? Repeat second troponin normal repeat EKG did not show appreciable change. ACS ruled out. Patient does not have chest pain, pressure or tightness.? Patient does not have a history of coronary artery disease.? Patient quit his smoking in 2014. 10/04: Continue follow-up with lunchroom operator. Continue Mucinex, incentive spirom etry and Pep. 3.Congenital history of VSD, mechanical aortic valve replacement, aortic homograft status post VSD repair. 10/03 INR subtherapeutic increased from 1.4-1.6. Therapeutic Lovenox 1 mg/kg body weight culture already ordered. On warfarin 10 mg daily. 10/04 : INR 1.8. Continue therapeutic Lovenox bridging and warfarin 10 mg daily until INR is therapeutic for 2 days. Monitor INR daily and adjust the dose of warfarin accordingly. Continue diuretic Lasix 4. Seizure disorder with with history of MRDD-continue Dilantin. Serum phenytoin level tomorrow a.m. 10/04: Warfarin level is 4.5. Patient not having any acute seizure episodes therefore we will continue the same dose. 5. Hypertension-stable, continue home regimen. 6. Anxiety/depression-on bupropion, escitalopram. 7. History of tobacco use-quit in 2014. DVT prophylaxis-Lovenox subcu CODE STATUS: Unverified full code. Patient does not understand the meaning of living will/advanced directive and CODE STATUS. Her power of estate planning attorney is sister. Discharge medication reconciliation done. Discharge follow-up instructions c ompleted. Discharge process discussed with the patient and all questions were answered to patient's satisfaction. Total time spent, exact 35 minutes on discharge meds reconciliation, examination, coordination of care with nurses and ancillary staff, review of imaging and blood test and discussion with the patient on follow-up instructions. Physical Exam Narrative Denies chest pain or shortness of breath. Physical exam General: Awake, cooperative. MRDD on baseline HEENT: Atraumatic, PERRLA, EOMI, Normocephalic Oral: Oral mucosa dry.No Gingival or Mucosal Lesions/ Ulcerations Neck: Supple, No JVD, Negative Carotid Bruits Lungs: Air entry diminished in bilateral lung bases. Mild coarse crepitation. on baseline O2 6 L Cardiovascular: Sinus rhythm, Normal S1, Normal S2, mechanical aortic valve click present on right second ICS. Midline open heart surgery scar Abdomen: Bowel Sounds Present, Soft, Non Tender, Non-Distended : No renal angle tenderness. No suprapubic tenderness. Extremities: Chronic bilateral pitting ankle edema, Capillary Refill Less than 3 Seconds Skin: Mild redness, erythema over bilateral groin region and perineal region, looks much better Musculoskeletal: No Tenderness to Palpation of Joints or Extremities Neurological: Cranial nerves II-XII grossly intact, DTR 2+. Detailed neuro exam unobtainable. Psych/Mental Status: Flat affect. Weight / BMI Weight Weight: 180 lb 15.992 oz Body Mass Index (BMI) 26.6 ABG / Lab / Microbiology Data Result Diagrams: 10/04/21 04:05 10/04/21 04:05 Laboratory: Laboratory Results - last 24 hr 10/04/21 04:05: PT 20.1 H, INR 1.8 10/04/21 04:05: WBC 5.4, RBC 3.55 L, Hgb 11.5 L, Hct 36.5 L, MCV 102.8 H, MCH 32.4 H, MCHC 31.5 L, RDW Std Deviation 53.1 H, RDW Coeff of Joseluis 13.9, Plt Count 126 L, MPV 12.4 H, Immature Gran % (Auto) 0.400, Neut % (Auto) 65.1, Lymph % (Auto) 13.4 L, [place] % (Auto) 9.7, Eos % (Auto) 10.8 H, Baso % (Auto) 0.6, Absolute Neuts (auto) 3.5, Absolute Lymphs (auto) 0.72 L, Nucleated RBC % 0 10/04/21 04:05: Sodium 139, Potassium 4.3, Chloride 100, Carbon Dioxide 37.0 H, Anion Gap 2 L, BUN 16, Creatinine 0.98, Estim Creat Clear Calc 84.17, Est GFR (MDRD) Af Amer 102, Est GFR (MDRD) Non-Af 84, BUN/Creatinine Ratio 16.4, Glucose 110 H, Calcium 8.0 L 10/04/21 04:05: Phenytoin 4.5 L Microbiology: Microbiology 10/03/21 22:30 Nasal Secretion SARS-CoV-2 Antigen (Rapid) - Final 10/02/21 16:30 Nasal Secretion SARS-CoV-2 Antigen (Rapid) - Final Meaningful Use Info Meaningful Use Diagnoses (Choose all that apply): None applicable Discharge Plan Admission Admit Date/Time: 10/02/21 17:48 Primary Reason for Your Visit: Failure to thrive Attending Provider: Wyatt Hay Primary Care Provider: Jason Leal Discharge Orders/Prescriptions Prescriptions: New ipratropium-albuterol 0.5 mg-3 mg(2.5 mg base)/3 mL Solution For Nebulization 3 ml inhalation Q4HWA.RT PRN (Reason: SOB) Qty: 0 0RF sennosides-docusate sodium [Stool Softener-Stimulant Laxat] 8.6-50 mg Tablet 2 tab PO BID PRN PRN (Reason: Constipation) Qty: 0 0RF ferrous sulfate [FeroSul] 325 mg (65 mg iron) Tablet 325 mg PO DAILY@1200 Qty: 0 0RF warfarin [Jantoven] 5 mg Tablet 10 mg PO DAILY@1700 Qty: 0 0RF enoxaparin 80 mg/0.8 mL Syringe 80 mg subcut Q12 Qty: 0 0RF Rx Instructions: Continue until INR is therapeutic 2.0 for 2 days Mucus Relief ER 1,200 mg Tablet Extended Release 12hr 1,200 mg PO BID Qty: 0 0RF menthol-zinc oxide [Calmoseptine] 0.44-20.6 % Ointment 1 applic topical 4X/DAY Qty: 0 0RF Protocol: *Topical Application Instructions APPLICATION INSTRUCTIONS: apply to groin and bilat buttocks furosemide 40 mg Tablet 40 mg PO DAILY Qty: 0 0RF Rx Instructions: Hold if creatinine is more than 30% more than baseline Continued aspirin [Adult Aspirin Regimen] 81 mg tablet,delayed release (DR/EC) 81 mg PO DAILY multivitamin [Multiple Vitamins] tablet 1 tab PO QDAY vitamin B complex [B Complex-Vitamin B12] Tablet 1 tab PO DAILY escitalopram oxalate 5 mg tablet 10 mg PO QHS alum-mag hydroxide-simeth 200-200-20 mg/5 mL suspension 30 ml PO Q4H PRN (Reason: Heartburn) pantoprazole 20 mg tablet,delayed release (DR/EC) 40 mg PO DAILY ascorbate calcium (vitamin C) 500 mg tablet 500 mg PO DAILY bupropion HCl [Wellbutrin SR] 150 mg tablet sustained-release 12 hr 150 mg PO DAILY melatonin 3 mg capsule 5 mg PO HS PRN (Reason: Insomnia) phenytoin sodium extended [Dilantin Extended] 100 mg capsule 100 mg PO TID Qty: 90 5RF albuterol sulfate 90 mcg/actuation HFA aerosol inhaler 2 puff inhalation Q4H PRN (Reason: shortness of breath or wheezing) Qty: 8.5 11RF Rx Instructions: administer with spacer Trelegy Ellipta 200-62.5-25 mcg blister with device 1 inh inhalation DAILY Qty: 60 11RF metoprolol tartrate 25 mg tablet 37.5 mg PO BID Rx Instructions: 1.5 tablets bid acetaminophen [Tylenol] 325 mg Tablet 650 mg PO Q4H PRN PRN (Reason: Fever, pain 1-12/09) Qty: 0 0RF cholecalciferol (vitamin D3) [Vitamin D3] 50 mcg (2,000 unit) capsule 50 mcg PO DAILY Qty: 1 0RF Discontinued ferrous sulfate [Feosol] 325 mg (65 mg iron) tablet 325 mg PO BID guaifenesin 100 mg/5 mL liquid 200 mg PO Q4H PRN (Reason: Cough) furosemide 20 mg tablet 20 mg PO DAILY warfarin [Jantoven] 7.5 mg Tablet 7.5 mg PO DAILY@1700 Qty: 0 0RF Referrals / Follow Up: Jason Leal DO [Primary Care Provider] - Within 2 Weeks Disposition Disposition (needs filled in before D/C Order can be placed): Shelter Facility Charges/Coding Visit Charges OBSV E&M: 34145 Observation care discharge
[2021-10-04] MEDS: Albuterol 2.5 MG/3 ML VIAL.NEB. INHALATION (10:52)
--- NOTE | 2021-10-04 12:41 | NURSING ---
Report called to Franklyn Ji, all concerns and questions answered.
== END 2021-10-04 07:12 ==
LOC: ED 17:55 → PCU 17:57
PROVIDERS: Internal Medicine; Admitting Provider Internal Medicine; Emergency Provider Emergency Medicine; PCP Family Medicine; Visit Provider Internal Medicine
DX: R62.7 Adult failure to thrive (principal); J44.9 Chronic obstructive pulmonary disease, unspecified; J96.11 Chronic respiratory failure with hypoxia; G40.909 Epilepsy, unspecified, not intractable, without status epilepticus; D64.9 Anemia, unspecified; R53.81 Other malaise; Z79.01 Long term (current) use of anticoagulants; I10 Essential (primary) hypertension; F41.9 Anxiety disorder, unspecified; I45.2 Bifascicular block; R79.1 Abnormal coagulation profile; E78.5 Hyperlipidemia, unspecified; Z99.81 Dependence on supplemental oxygen; Z79.899 Other long term (current) drug therapy; Z79.82 Long term (current) use of aspirin; Z87.891 Personal history of nicotine dependence; Z86.16 Personal history of COVID-19; Z95.2 Presence of prosthetic heart valve; F32.A Depression, unspecified; Z86.718 Personal history of other venous thrombosis and embolism; F79 Unspecified intellectual disabilities
CPT/HCPCS: 36415; 71045; 80048; 80061; 80185; 83735; 84100; 84443; 84484; 85025; 85610; 85730; 87811; 93005; 94640; 94667; 96372; 96374; 97162; 97166; 99218; 99251; 99285; A4216; G0378; G0463

== ENCOUNTER 2021-10-05 06:30 | Emergency (ER) | payer MEDICARE, MEDICAID, SELFPAY ==
[2021-10-05 06:31] VITALS: BP 138/80; PULSE 94; RESP 18; TEMP 36.6; O2SAT 98; BMI 27.2
[2021-10-05 06:34] VITALS: O2SAT 96
--- NOTE | 2021-10-05 06:57 | RAD_ITS ---
EXAM: XR SOFT TISSUE NECK CLINICAL INDICATION: throat pain / ? FB TECHNIQUE: Frontal and lateral views of the soft tissues of the neck. This report was created using [employer] report generation technology. COMPARISON: None. FINDINGS: AIRWAY: Normal. Grossly patent. SOFT TISSUES: Normal. No radiopaque foreign body. No pathologic thickening or enlargement of the epiglottis. RAD/Neck for Soft Tissue IMPRESSION: Normal soft tissues of the neck. Electronically Signed: Juliano Denise MD at 8:16 EDT ,
--- NOTE | 2021-10-05 06:57 | RAD_ITS ---
EXAM: XR CHEST, 1 VIEW CLINICAL INDICATION: dyspnea TECHNIQUE: Frontal view of the chest. This report was created using [employer] report generation technology. COMPARISON: XR Chest dated 10/02/2021 FINDINGS: LUNGS AND PLEURAL SPACES: Bullous emphysematous changes of the lungs again noted associated with parenchymal scarring. No pneumothorax. No effusion. HEART: Normal heart size. MEDIASTINUM: Central airways and mediastinal contour are unremarkable. BONES/JOINTS: Sternotomy wires remain in place. SOFT TISSUES: Normal. RAD/Chest 1 View (Portable) IMPRESSION: Stable bullous emphysematous changes of the lungs. Electronically Signed: Juliano Denise MD at 8:16 EDT ,
--- NOTE | 2021-10-05 06:59 | EX.ED.DYSGE1 ---
HPI History of Present Illness Chief Complaint: Mental Health Narrative Narrative: Patient is a 55-year-old male with MRDD who stays at a [place] [facility] with past medical history of epilepsy and COPD as well as mood disorder and past surgical history of mechanical valve replacement currently on Coumadin. group home states that the patient was yelling and screaming throughout the night that he had a pill stuck in his throat. Reportedly he called the police multiple times stating that he felt his symptoms are being ignored. They agree there is no obvious need for emergent transfer to the hospital but as the patient's behavior has been aggressive and uncooperative and he continues to complain of a possible esophageal foreign body he was sent to the hospital for evaluation [facility] Medical History Acute on chronic respiratory failure with hypoxia Alkaline phosphatase elevation Aortic valve disease Bilateral leg edema Cholelithiasis Chronic hypoxemic respiratory failure Chronic respiratory failure COPD (chronic obstructive pulmonary disease) COVID-19 virus infection DVT (deep venous thrombosis) Eczema of hand Essential hypertension GERD (gastroesophageal reflux disease) History of Coumadin therapy Hyperlipidemia Hypersomnia Hypersomnia Hypoxemic respiratory failure, chronic Iatrogenic pneumothorax Learning disability Mixed obstructive and restrictive ventilatory defect Mood disorder Obesity Seizure disorder Shortness of breath Stage 4 very severe COPD by GOLD classification Subtherapeutic phenytoin level varicose veins Ventricular septal defect Home Medications aspirin 81 mg tablet,delayed release (Adult Aspirin Regimen) 81 mg PO DAILY heart health 03/17/17 [History Last Taken 10/01/21] multivitamin (Multiple Vitamins tablet) 1 tab PO QDAY supplement 03/17/17 [History Last Taken 10/02/21] aluminum-mag hydroxide-simethicone 200 mg-200 mg-20 mg/5 mL oral susp 30 ml PO Q4H PRN Heartburn 04/18/20 [History Last Taken 10/01/21] ascorbate calcium (vitamin C) 500 mg tablet 500 mg PO DAILY supplement 04/18/20 [History Last Taken 10/02/21] bupropion HCl 150 mg tablet,12 hr sustained-release (Wellbutrin SR) 150 mg PO DAILY depression 04/18/20 [History Last Taken 10/02/21] escitalopram oxalate 5 mg tablet 10 mg PO QHS depression 04/18/20 [History Last Taken 10/01/21] melatonin 3 mg capsule 5 mg PO HS PRN Insomnia 04/18/20 [History Last Taken 10/01/21] pantoprazole 20 mg tablet,delayed release 40 mg PO DAILY stomach 04/18/20 [History Last Taken 10/02/21] metoprolol tartrate 25 mg tablet 37.5 mg PO BID heart rate 12/27/20 [History Last Taken 10/02/21] acetaminophen 325 mg tablet (Tylenol) 650 mg PO Q4H PRN PRN Fever, pain 1-12/09 #0 tabs 04/03/21 [Rx Last Taken 10/01/21] cholecalciferol (vitamin D3) 50 mcg (2,000 unit) capsule (Vitamin D3) 50 mcg PO DAILY #1 cap 04/03/21 [Rx Last Taken 10/02/21] phenytoin sodium extended 100 mg capsule (Dilantin Extended) 100 mg PO TID seizures #90 caps 08/06/21 [Rx Last Taken 10/02/21] albuterol sulfate 90 mcg/actuation aerosol inhaler 2 puff inhalation Q4H PRN shortness of breath or wheezing #8.5 grams 09/19/21 [Rx Last Taken 10/02/21] fluticasone fur. 200 mcg-umeclid 62.5 mcg-vilant 25 mcg inhalat.powder (Trelegy Ellipta) 1 inh inhalation DAILY #60 ea 09/19/21 [Rx Last Taken 10/02/21] ferrous sulfate 325 mg (65 mg iron) tablet (FeroSul) 325 mg PO DAILY@1200 #0 tabs 10/04/21 [Rx Last Taken Unknown] furosemide 40 mg tablet 40 mg PO DAILY #0 tabs 10/04/21 [Rx Last Taken Unknown] ipratropium 0.5 mg-albuterol 3 mg (2.5 mg base)/3 mL nebulization soln 3 ml inhalation Q4HWA.RT PRN SOB #0 mL 10/04/21 [Rx Last Taken Unknown] sennosides 8.6 mg-docusate sodium 50 mg tablet (Stool Softener-Stimulant Laxative) 2 tab PO BID PRN PRN Constipation #0 tabs 10/04/21 [Rx Last Taken Unknown] warfarin 5 mg tablet (Jantoven) 10 mg PO DAILY@1700 #0 tabs 10/04/21 [Rx Last Taken Unknown] cyanocobalamin (vitamin B-12) 1,000 mcg tablet 1,000 mcg PO DAILY 10/05/21 [History Last Taken Unknown] enoxaparin 80 mg/0.8 mL subcutaneous syringe (Lovenox) 80 mg subcut Q12H 10/05/21 [History Last Taken Unknown] fluticasone fur. 200 mcg-umeclid 62.5 mcg-vilant 25 mcg inhalat.powder (Trelegy Ellipta) 1 inh inhalation DAILY 10/05/21 [History Last Taken Unknown] guaifenesin 1,200 mg tablet, extended release 12 hr (Mucus Relief ER) 600 mg PO BID 10/05/21 [History Last Taken Unknown] Allergy/AdvReac Type Severity Reaction Status Date / Time No Known Allergies Allergy Verified 10/05/21 06:35 Family History Father Lung cancer Osteoarthritis Mother Diabetes Thyroid disorder High cholesterol Breast cancer Grandmother Heart disease CVA (cerebral vascular accident) Surgical History H/O aortic root repair H/O aortic valve replacement H/O hernia repair History of mechanical aortic valve replacement (~12/06/12) S/P VSD repair Social History (Updated 10/02/21 @ 18:18 by Tereza Blair) household members: none current occupational status: disabled Smoking Status: Former smoker quit date: 03/02/12 pack-years: 40 Tobacco: How many years used: 35 second hand exposure: No alcohol intake: never substance use type: does not use ROS ROS ED Constitutional Constitutional ED: Denies chills or fever(s) ENT ENT ED: Reports sore throat Cardiovascular Cardiovascular: Denies chest pain Respiratory/Chest Respiratory/Chest: Reports dyspnea; Denies cough Gastrointestinal Gastrointestinal: Denies abdominal pain, diarrhea, nausea or vomiting Genitourinary Genitourinary ED: Denies dysuria Musculoskeletal Musculoskeletal: Denies myalgias Integumentary Denies rash Neurologic Neurologic: Denies headache(s) Hematologic/Lymphatic Hematologic/Lymphatic: Reports easy bleeding and easy bruising EXAM Physical Exam Const Vital Signs: 10/05/21 06:31 10/05/21 06:34 Temperature 97.8 F Temperature Source Oral Pulse Rate 94 Respiratory Rate 18 Respiratory Effort Normal Respiratory Depth Normal Respiratory Pattern Normal Blood Pressure 138/80 H Blood Pressure Mean 99 Pulse Ox 98 Oxygen Delivery Method Nasal Cannula Nasal Cannula Oxygen Flow Rate (L/min) 6 6 Positive well nourished and well developed General Appearance ED: well developed HEENT HEENT Narrative: Mucous membranes are dry and tacky. No oral lesions no tongue or lip swelling no airway edema or compromise. Eyes PERRL and EOMs intact bilaterally Neck supple Neck Narrative: No pain with external manipulation of the thyroid cartilage no crepitance noted Resp normal respiratory effort Resp Narrative: Breath sounds are diminished throughout with faint expiratory wheeze consistent with history of COPD but overall no nasal flaring retractions tachypnea or accessory muscle use Cardio regular rate and regular rhythm Rate: other Other Details: Patient has a midsystolic click consistent with his mechanical valve GI normal to inspection, nondistended, normoactive bowel sounds, non-tender and non-distended Auscultation: normoactive bowel sounds Palpation: soft Extremity Extremity Narrative: Trace edema to the bilateral lower extremities that is equal and symmetric Neuro oriented x3 and CN's II-XII intact bilaterally Sensorium / Orientation: alert Psych Psych Narrative: Patient has a flat affect Skin no rashes or lesions noted MDM MDM MDM Narrative Medical decision making narrative: Patient presented to the ER satting 98% on his normal 6 L. He could talk without any type of dyspnea and he was swallowing his secretions without difficulty and was asking for things to eat and drink. I informed him that this does not correlate with having an esophageal foreign body but because he has concern for this I will perform an x-ray of his neck and chest. Also as he has mechanical valve his Coumadin value will be checked. At this time as the patient's vitals are stable and he is in no acute respiratory distress on his normal 6 L he will be safe for discharge once the labs and x-rays are resulted and show no clinically significant finding Radiography Diagnostic Testing: Soft tissue neck x-ray as interpreted by the emergency medicine physician reveals no airway edema and no obvious foreign body 1 view chest x-ray as interpreted by the emergency medicine physician reveals no acute infiltrate pneumothorax or pleural effusion Discharge Plan Triage Chief Complaint: Mental Health ED Provider: Estevan Spencer Dx/Rx/DC Orders Clinical Impression: Pill esophagitis, Mood disorder, 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 Instructions: How to Control Your Temper, Esophagitis Prescriptions: No Action aspirin [Adult Aspirin Regimen] 81 mg tablet,delayed release (DR/EC) 81 mg PO DAILY multivitamin [Multiple Vitamins] tablet 1 tab PO QDAY escitalopram oxalate 5 mg tablet 10 mg PO QHS alum-mag hydroxide-simeth 200-200-20 mg/5 mL suspension 30 ml PO Q4H PRN (Reason: Heartburn) pantoprazole 20 mg tablet,delayed release (DR/EC) 40 mg PO DAILY ascorbate calcium (vitamin C) 500 mg tablet 500 mg PO DAILY bupropion HCl [Wellbutrin SR] 150 mg tablet sustained-release 12 hr 150 mg PO DAILY melatonin 3 mg capsule 5 mg PO HS PRN (Reason: Insomnia) phenytoin sodium extended [Dilantin Extended] 100 mg capsule 100 mg PO TID Qty: 90 5RF albuterol sulfate 90 mcg/actuation HFA aerosol inhaler 2 puff inhalation Q4H PRN (Reason: shortness of breath or wheezing) Qty: 8.5 11RF Rx Instructions: administer with spacer Trelegy Ellipta 200-62.5-25 mcg blister with device 1 inh inhalation DAILY Qty: 60 11RF metoprolol tartrate 25 mg tablet 37.5 mg PO BID Rx Instructions: 1.5 tablets bid acetaminophen [Tylenol] 325 mg Tablet 650 mg PO Q4H PRN PRN (Reason: Fever, pain 1-12/09) Qty: 0 0RF cholecalciferol (vitamin D3) [Vitamin D3] 50 mcg (2,000 unit) capsule 50 mcg PO DAILY Qty: 1 0RF ipratropium-albuterol 0.5 mg-3 mg(2.5 mg base)/3 mL Solution For Nebulization 3 ml inhalation Q4HWA.RT PRN (Reason: SOB) Qty: 0 0RF sennosides-docusate sodium [Stool Softener-Stimulant Laxat] 8.6-50 mg Tablet 2 tab PO BID PRN PRN (Reason: Constipation) Qty: 0 0RF ferrous sulfate [FeroSul] 325 mg (65 mg iron) Tablet 325 mg PO DAILY@1200 Qty: 0 0RF warfarin [Jantoven] 5 mg Tablet 10 mg PO DAILY@1700 Qty: 0 0RF furosemide 40 mg Tablet 40 mg PO DAILY Qty: 0 0RF Rx Instructions: Hold if creatinine is more than 30% more than baseline cyanocobalamin (vitamin B-12) 1,000 mcg Tablet 1,000 mcg PO DAILY enoxaparin [Lovenox] 80 mg/0.8 mL Syringe 80 mg SUBCUT Q12H Trelegy Ellipta 200-62.5-25 mcg Blister With Device 1 inh INHALATION DAILY Mucus Relief ER 1,200 mg tablet extended release 12hr 600 mg PO BID Primary Care Provider: Jason Leal Referrals: Jason Leal DO [Primary Care Provider] - Disposition Disposition: Home, Self Care
[2021-10-05 07:35] LABS: Absolute Lymphocyte Count 0.54 X10^3/uL (0.83-4.51); Basophil# 0.03 X10^3/uL; Basophil% 0.6 % (0-1); Eosinophil# 0.15 X10^3/uL; Eosinophils% 2.9 % (0-5); Hematocrit 38.7 % (40-54); Lymphocyte # 0.54 X10^3/ul (0.83-4.51); Lymphocyte % 10.5 % (19-41); Mean Corpuscular Hgb 31.8 pg (27.0-32.0); Mean Corpuscular Volume 102.7 fL (80-94); Mean Platelet Vol. 11.9 fl (6.2-12.0); Monocyte# 0.39 X10^3/uL; Monocyte% 7.6 % (0-10); NRBC Flagged by Analyzer 0 % (0-5); Neutrophil # 3.99 X10^3/uL (2.7-7.7); Neutrophil % 77.8 % (47-70); POSITIVE DIFFERENTIAL YES; Platelet Count 125 K/mm3 (150-450); RBC Distribution Width CV 13.8 % (11.6-14.6); RBC Distribution Width SD 52.1 fl (35.1-43.9); Red Blood Count 3.77 M/mm3 (4.6-6.2); White Blood Count 5.1 K/mm3 (4.4-11.0)
[2021-10-05 07:42] LABS: Differential Indicated SCAN CRITERIA MET
[2021-10-05 07:44] LABS: Anion Gap 0 (5-15); BUN 17 mg/dL (7-18); BUN/Creat Ratio 17.6 RATIO (10-20); Calcium,Total 8.5 mg/dL (8.5-10.1); Chloride 100 mmol/L (98-107); Creatinine, Serum 0.96 mg/dL (0.70-1.30); EST Glomerular Filtration Rate 85 mL/min (>60); Est Glom Filt Rate - Afr Amer 103 mL/min (>60); Estimated Creatinine Clearance 85.92 ml/min; Glucose 117 mg/dL (74-106); Magnesium 1.8 mg/dL (1.6-2.6); Potassium 4.1 mmol/L (3.5-5.1); Sodium Level 140 mmol/L (136-145)
[2021-10-05 07:54] LABS: International Normalized Ratio 2.4
[2021-10-05 08:01] LABS: Differential Comment SCANNED
[2021-10-05 09:13] VITALS: BP 119/73; PULSE 91; RESP 16; TEMP 36.8; O2SAT 99
== END 2021-10-05 11:14 | disposition home or self-care (01) ==
PROVIDERS: Emergency Provider Emergency Medicine; PCP Family Medicine; Visit Provider Emergency Medicine
DX: K21.00 Gastro-esophageal reflux disease with esophagitis, without bleeding (principal); J44.9 Chronic obstructive pulmonary disease, unspecified; F39 Unspecified mood [affective] disorder; J96.11 Chronic respiratory failure with hypoxia; G40.909 Epilepsy, unspecified, not intractable, without status epilepticus; Z79.01 Long term (current) use of anticoagulants; Z95.2 Presence of prosthetic heart valve; Z86.16 Personal history of COVID-19; Z86.718 Personal history of other venous thrombosis and embolism; E66.9 Obesity, unspecified; Z87.19 Personal history of other diseases of the digestive system; E78.5 Hyperlipidemia, unspecified; Z79.82 Long term (current) use of aspirin; Z79.899 Other long term (current) drug therapy; Z87.891 Personal history of nicotine dependence; Z68.27 Body mass index [BMI] 27.0-27.9, adult
CPT/HCPCS: 70360; 71045; 80048; 83735; 85025; 85610; 99285; A4216

== ENCOUNTER → 2022-02-19 | Outpatient (CLI) | payer MEDICARE, MEDICAID, SELFPAY ==
--- NOTE | 2022-02-19 09:50 | TELEMED_ITS ---
[facility] has confirmed receipt of a request for visit. This document confirms receipt of the order initiating the consult. To find the results of the consultation, please view the patient's reports for the scanned Telemed Consult.
== END | disposition home or self-care (01) ==
PROVIDERS: PCP Family Medicine; Referring Provider Psychiatry & Neurology Neurology; Visit Provider Psychiatry & Neurology Neurology
DX: G40.909 Epilepsy, unspecified, not intractable, without status epilepticus (principal)
CPT/HCPCS: 95819

== ENCOUNTER 2022-07-04 14:40 | Inpatient (IN) | payer MEDICARE, MEDICAID, SELFPAY ==
[2022-07-04] VITALS (21 sets, daily range): BP systolic 97–163; BP diastolic 64–133; PULSE 90–142; RESP 14–29; TEMP 36.7–37.2; O2SAT 15–99; BMI 24.9
--- NOTE | 2022-07-04 14:47 | HP.PCM.HOS_ITS ---
HPI - General General Date of Admission: 07/04/22 Date of Service: 07/04/22 Chief Complaint: shortness of breath. HPI Narrative KAYLEEN AWAD, is a 56 M who presents with shortness of breath. Patient is a poor historian and the patient was transferred from outside hospital so patient history is difficult to obtain but patient had been short of breath for the past couple days and having a fever. Patient went to outside hospital where he was diagnosed with possible pneumonia and received prednisolone, furosemide 20 mg, 1 g of IV Rocephin and 100 mg of IV doxycycline. Patient was put on air Vo and was able to get his sats improved. Patient's pulse ox at the outside facility was 78% on 40 L. Patient did not require intubation. [facility] Medical History (Updated 07/04/22 @ 14:[address] Kevin Ziegler, ) Acute on chronic respiratory failure with hypoxia Alkaline phosphatase elevation Aortic valve disease Bilateral leg edema Cholelithiasis Chronic hypoxemic respiratory failure Chronic respiratory failure COPD (chronic obstructive pulmonary disease) COVID-19 virus infection Debility, unspecified DVT (deep venous thrombosis) Eczema of hand Essential hypertension GERD (gastroesophageal reflux disease) History of Coumadin therapy Hyperlipidemia Hypersomnia Hypersomnia Hypoxemic respiratory failure, chronic Iatrogenic pneumothorax Learning disability Mixed obstructive and restrictive ventilatory defect Mood disorder Obesity Seizure disorder Shortness of breath Stage 4 very severe COPD by GOLD classification Subtherapeutic international normalized ratio (INR) Subtherapeutic phenytoin level varicose veins Ventricular septal defect Home Medications aspirin 81 mg tablet,delayed release (Adult Aspirin Regimen) 81 mg PO DAILY heart health 03/17/17 [History Last Taken 10/01/21] multivitamin (Multiple Vitamins tablet) 1 tab PO QDAY supplement 03/17/17 [History Last Taken 10/02/21] aluminum-mag hydroxide-simethicone 200 mg-200 mg-20 mg/5 mL oral susp 30 ml PO Q4H PRN Heartburn 04/18/20 [History Last Taken 10/01/21] ascorbate calcium (vitamin C) 500 mg tablet 500 mg PO DAILY supplement 04/18/20 [History Last Taken 10/02/21] melatonin 3 mg capsule 5 mg PO HS PRN Insomnia 04/18/20 [History Last Taken 10/01/21] metoprolol tartrate 25 mg tablet 37.5 mg PO BID heart rate 12/27/20 [History Last Taken 10/02/21] acetaminophen 325 mg tablet (Tylenol) 650 mg PO Q4H PRN PRN Fever, pain 1-12/09 #0 tabs 04/03/21 [Rx Last Taken 10/01/21] cholecalciferol (vitamin D3) 50 mcg (2,000 unit) capsule (Vitamin D3) 50 mcg PO DAILY #1 cap 04/03/21 [Rx Last Taken 10/02/21] albuterol sulfate 90 mcg/actuation aerosol inhaler 2 puff inhalation Q4H PRN shortness of breath or wheezing #8.5 grams 09/19/21 [Rx Last Taken 10/02/21] ferrous sulfate 325 mg (65 mg iron) tablet (FeroSul) 325 mg PO DAILY@1200 #0 tabs 10/04/21 [Rx Last Taken Unknown] ipratropium 0.5 mg-albuterol 3 mg (2.5 mg base)/3 mL nebulization soln 3 ml inhalation Q4HWA.RT PRN SOB #0 mL 10/04/21 [Rx Last Taken Unknown] sennosides 8.6 mg-docusate sodium 50 mg tablet (Stool Softener-Stimulant Laxative) 2 tab PO BID PRN PRN Constipation #0 tabs 10/04/21 [Rx Last Taken U nknown] warfarin 5 mg tablet (Jantoven) 10 mg PO DAILY@1700 #0 tabs 10/04/21 [Rx Last Taken Unknown] cyanocobalamin (vitamin B-12) 1,000 mcg tablet 1,000 mcg PO DAILY 10/05/21 [History Last Taken Unknown] fluticasone fur. 200 mcg-umeclid 62.5 mcg-vilant 25 mcg inhalat.powder (Trelegy Ellipta) 1 inh inhalation DAILY 10/05/21 [History Last Taken Unknown] guaifenesin 1,200 mg tablet, extended release 12 hr (Mucus Relief ER) 600 mg PO BID 10/05/21 [History Last Taken Unknown] furosemide 40 mg tablet 40 mg PO DAILY #90 tabs 10/16/21 [Rx Last Taken Unknown] phenytoin sodium extended 100 mg capsule (Dilantin Extended) 100 mg PO TID seizures #90 caps 01/21/22 [Rx Last Taken Unknown] atorvastatin 20 mg tablet 20 mg PO DAILY 04/29/22 [History Last Taken Unknown] cetirizine 10 mg capsule (Zyrtec) 10 mg PO DAILY PRN 04/29/22 [History Last Taken Unknown] divalproex 125 mg tablet,delayed release (Depakote) 250 mg PO TID 04/29/22 [History Last Taken Unknown] cimetidine 200 mg tablet 400 mg PO QACHS 06/27/22 [History Last Taken Unknown] fluoxetine 40 mg capsule (Prozac) 50 mg PO DAILY 06/27/22 [History Last Taken Unknown] folic acid 1 mg tablet 1 mg PO DAILY 06/27/22 [History Last Taken Unknown] Allergy/AdvReac Type Severity Reaction Status Date / Time No Known Allergies Allergy Verified 06/27/22 14:44 Family History Father Lung cancer Osteoarthritis Mother Diabetes Thyroid disorder High cholesterol Breast cancer Grandmother Heart disease CVA (cerebral vascular accident) Surgical History H/O aortic root repair H/O aortic valve replacement H/O hernia repair History of mechanical aortic valve replacement (~12/06/12) S/P VSD repair Social History household members: none current occupational status: disabled Smoking Status: Former smoker quit date: 03/02/12 pack-years: 40 Tobacco: How many years used: 35 second hand exposure: No alcohol intake: never substance use type: does not use ROS ROS Narrative Positive fever and chills, positive cough, shortness of breath, denies chest pain, nausea when he is having hunger, denies lower extremity edema. All review of systems were negative except as mentioned above in the history of present illness and the other review of systems. Vital Signs Vital Signs Vital Signs: Weight Weight: 83.4 kg Body Mass Index (BMI) 24.9 Physical Exam Const alert and no apparent distress Constitutional Narrative: On Airvo. No respiratory distress. No conversational dyspnea. HEENT normocephalic and head/scalp atraumatic Neck no lymphadenopathy and supple Resp Resp Narrative: Coarse breath sounds bilaterally. Cardio Cardio Narrative: Aortic click. Tachycardia. GI normal to inspection, nondistended, normoactive bowel sounds, soft to palpation, non-tender and non-distended Extremity normal to inspection and full ROM Neuro moves all extremities Sensorium / Orientation: awake and alert Psych affect normal Results Lab / Micro Data Lab results narrative: Outside labs showed a CBC in 9.9, hemoglobin of 12.3, platelets of 116, BMP was limited in regards to what they provided as they did not provide us all the information but showed a sodium 139, potassium of 4.2. I do not have a creatinine. Chest x-ray report reports curvilinear right basilar in filtrate/atelectasis. Unable to visualize actual images. Assessment & Plan Assessment/Plan (1) Acute and chronic respiratory failure with hypoxia: PLAN: Secondary to what may be pneumonia and possible COPD exacerbation Will repeat chest x-ray here Wean oxygen as tolerated. Thus far stable on Airvo. (2) Pneumonia: PLAN: Suspected pneumococcal We will check sputum culture, urinary antigens for strep and Legionella, COVID- 19 and influenza Continue with ceftriaxone and add azithromycin, patient received doxycycline at the outside facility Pulmonary toilet (3) COPD exacerbation: PLAN: Continue with bronchodilators Had methylprednisolone, which patient received at the outside facility. (4) Aortic valve disease: PLAN: Status post a mechanical aortic valve Continue with warfarin Unclear type of but would look at INR of 2.5-3.5 PLAN: Plan Chronic conditions * Seizure disorder: Continue with antiepileptics. Follow-up neurology as outpatient. * History of DVT: Continue with warfarin * Mood disorder: Not otherwise specified: Continue with SSRI * Hyperlipidemia: Continue with statin VTE prophylaxis: Not indicated as patient is anticoagulated. CODE STATUS: Patient is DNR [facility] arrest from the nursing facility. We will continue. Charges/Coding Visit Charges Inpatient E&M: 73153 Init Hosp L3
[2022-07-04] MEDS: Ipratropium/Albuterol Sulfate 3 ML AMPUL.NEB INHALATION (15:19)
[2022-07-04 16:15] LABS: Hematocrit 37.8 % (40-54); Hemoglobin 11.6 g/dL (13.0-16.5); Mean Corp Hgb Conc 30.7 g/dL (32-36); Mean Corpuscular Hgb 31.4 pg (27.0-32.0); Mean Corpuscular Volume 102.2 fL (80-94); Mean Platelet Vol. 12.2 fl (6.2-12.0); Platelet Count 110 K/mm3 (150-450); RBC Distribution Width SD 53.1 fl (35.1-43.9); White Blood Count 5.8 K/mm3 (4.4-11.0)
[2022-07-04 16:35] LABS: ALB/GLOB Ratio 0.6 RATIO (0.9-2.4); AST(SGOT) 18 U/L (15-37); Alanine Aminotransfer ALT/SGPT 21 U/L (16-61); Albumin, Serum 2.6 g/dL (3.2-5.0); Alkaline Phosphatase 174 U/L (45-117); Anion Gap 5 (5-15); BUN 26 mg/dL (7-18); BUN/Creat Ratio 22.8 RATIO (10-20); Calcium,Total 8.8 mg/dL (8.5-10.1); Chloride 100 mmol/L (98-107); Creatinine, Serum 1.14 mg/dL (0.70-1.30); EST Glomerular Filtration Rate 70 mL/min (>60); Est Glom Filt Rate - Afr Amer 85 mL/min (>60); Estimated Creatinine Clearance 78.47 ml/min; Globulin 4.4 g/dL (2.2-4.2); Glucose 167 mg/dL (74-106); Potassium 4.1 mmol/L (3.5-5.1); Sodium Level 140 mmol/L (136-145)
--- NOTE | 2022-07-04 16:35 | RAD_ITS ---
STUDY: X-RAY CHEST REASON FOR EXAM: Male, 56 years old. Pneumonia. TECHNIQUE: PA and lateral views of the chest. COMPARISON: October 05, 2021. FINDINGS: The lungs are hyperexpanded. There is chronic interstitial coarsening throughout both lungs. Question left retrocardiac infiltrate. Small left pleural effusion. Sternal cerclage wires are present from a prior sternotomy. The heart is normal in size. Normal mediastinum and joselito. Normal visualized pulmonary arteries. There is atherosclerotic calcification of the aortic arch with tortuosity. Normal visualized thoracic spine. Normal visualized ribs, clavicles, and shoulders. There is no demonstrated abnormality of the visualized soft tissue structures of the upper abdomen. RAD/Chest PA and Lateral IMPRESSION: Question left lower lobe infiltrate without other major interval change. Electronically Signed: Isai Law DO at 23:02 EDT ,
[2022-07-04 17:55] LABS: Prothrombin Time (Protime)PT. 54.3 SECONDS (11.7-14.9)
[2022-07-04 17:57] LABS: International Normalized Ratio 5.9
--- NOTE | 2022-07-04 19:40 | EKG12_ITS ---
Test Reason : HR LOWER Blood Pressure : / mmHG Vent. Rate : 090 BPM Atrial Rate : 000 BPM P-R Int : 000 ms QRS Dur : 166 ms QT Int : 400 ms P-R-T Axes : 000 -66 080 degrees QTc Int : 489 ms Atrial fibrillation Right bundle branch block Left anterior fascicular block Bifascicular block Abnormal ECG When compared with ECG of 04-JUL-2022 19:44, MANUAL COMPARISON REQUIRED, DATA IS UNCONFIRMED Confirmed by ESTEPHANIE HEARD, RODRIGO ([id number]), editor dictionary JAIDEN KANG ([id number]) on 07/08/2022 1:28:17 PM Referred By: Confirmed By:JUAN HUMMEL MD
--- NOTE | 2022-07-04 19:50 | PCM.HOSP.N ---
Hospitalist Note Rate increased, patient with SVT history noted, will dose x 1 cardizem 10 mg IV x 1, obtaining EKG also.
[2022-07-04] MEDS: Metoprolol Tartrate 25 MG Tablet 37.5 MG PO (19:55)
[2022-07-04] MEDS: Divalproex Sodium 125 MG Tablet 250 MG PO (20:00)
[2022-07-04] MEDS: guaiFENesin 1,200 MG Tablet 1200 MG PO (20:01)
[2022-07-04] MEDS: Phenytoin Na 100 MG Capsule PO (20:04)
[2022-07-04] MEDS: Atorvastatin Calcium 20 MG Tablet PO (20:25)
[2022-07-04] MEDS: dilTIAZem 25 MG/5 ML Vial 10 MG IV BOLUS ×2 (20:26→20:59)
[2022-07-04] MEDS: 0.9% Saline Lock 10 ML Syringe IV ×2 (20:29→21:02)
[2022-07-04] MEDS: Methylprednisolone Sod Succ 40 MG/ML VIAL IV (20:29)
--- NOTE | 2022-07-04 21:06 | EKG12_ITS ---
Test Reason : A-FIB RVR Blood Pressure : / mmHG Vent. Rate : 137 BPM Atrial Rate : 000 BPM P-R Int : 000 ms QRS Dur : 160 ms QT Int : 362 ms P-R-T Axes : 000 -66 096 degrees QTc Int : 546 ms Atrial fibrillation with rapid ventricular response Right bundle branch block Left anterior fascicular block Bifascicular block Nonspecific ST-T changes Abnormal ECG When compared with ECG of 02-OCT-2021 20:20, Atrial fibrillation has replaced Sinus rhythm Vent. rate has increased BY 54 BPM T wave inversion now evident in Lateral leads Confirmed by ESTEPHANIE HEARD, RODRIGO ([id number]), associate entertainment editor JAIDEN KANG ([id number]) on 07/08/2022 1:27:03 PM Referred By: DR RAMAN Confirmed By:JUAN HUMMEL MD
--- NOTE | 2022-07-04 22:08 | ECHOD_ITS ---
Reason For Study: A. fib Procedure This was a 2D Doppler, Color Flow transthoracic echocardiogram. Exam performed portable in patient room. Left Ventricle Normal size and thickness. The left ventricular ejection fraction is 50 %. Normal diastology for age. Right Ventricle Mild global right ventricular systolic dysfunction. Atria The left atrium is mildly enlarged. Normal right atrium. Mitral Valve Trivial mitral valve insufficiency. Tricuspid Valve Mild tricuspid valve insufficiency. Right ventricular systolic pressure estimated to be 56 mmHg. Moderate pulmonary hypertension. Aortic Valve The aortic valve is not well visualized in the short axis view. Trivial aortic valve insufficiency. Prosthetic aortic valve not well visualized however gradient across it same as study from 12/13/2019. Trivial regurgitation. Pulmonic Valve The pulmonic valve is not well visualized. Great Vessels The aortic root is not well visualized. Pericardium/Pleural No pericardial effusion. MMode/2D Measurements & Calculations LVIDd: 5.3 cm IVSd: 1.1 cm LVOT diam: 2.1 cm LVIDs: 3.6 cm LVPWd: 1.1 cm LVOT area: 3.5 cm2 RVDd: 3.6 cm FS: 32.0 % Ao root diam: 3.2 cm LAV(MOD-bp): 47.7 ml LVAd ap4: 27.9 cm2 LAV(MOD-bp) Indexed: 23.3 ml/m2 LVLd ap4: 7.1 cm LAV(MOD-sp2): 39.0 ml EDV(MOD-sp4): 94.6 ml LAV(MOD-sp4): 45.6 ml EDV(sp4-el): 93.0 ml LVAs ap4: 19.1 cm2 LVLs ap4: 6.7 cm ESV(MOD-sp4): 52.2 ml ESV(sp4-el): 46.3 ml EF(MOD-sp4): 44.9 % EF(sp4-el): 50.2 % LVAd ap2: 30.8 cm2 SV(MOD-sp4): 42.4 ml SV(MOD-sp2): 48.1 ml LVLd ap2: 8.5 cm EDV(MOD-sp2): 97.1 ml EDV(sp2-el): 94.5 ml LVAs ap2: 21.7 cm2 LVLs ap2: 8.2 cm ESV(MOD-sp2): 49.0 ml ESV(sp2-el): 48.8 ml EF(MOD-sp2): 49.5 % SV(sp4-el): 46.7 ml LA dimension(2D): 4.3 cm LA A4 area: 16.8 cm2 RA A4 area: 15.5 cm2 TAPSE_phl: 0.65 cm Doppler Measurements & Calculations MV E max emmanuel: 80.3 cm/sec Lat Peak E' Emmanuel: 16.2 cm/sec Med Peak E' Emmanuel: 10.0 cm/sec E/E' lat: 5.0 E/E' med: 8.1 Ao V2 max: 176.8 cm/sec LV V1 max: 152.9 cm/sec SV(LVOT): 68.4 ml Ao max P.6 mmHg LV V1 max P.4 mmHg Ao V2 mean: 119.1 cm/sec LV V1 mean P.6 mmHg Ao mean P.4 mmHg LV V1 mean: 100.6 cm/sec Ao V2 VTI: 20.8 cm LV V1 VTI: 19.6 cm AV (velocity ratio): 0.94 DAREN(I,D): 3.3 cm2 DAREN(V,D): 3.0 cm2 PA V2 max: 89.4 cm/sec TR max emmanuel: 346.1 cm/sec TR max P.9 mmHg ECHO/Echo Complete Interpretation Summary The left ventricular ejection fraction is 50 %. Mild tricuspid valve insufficiency. Moderate pulmonary hypertension. Prosthetic aortic valve not well visualized however gradient across it same as study from 12/13/2019. Trivial regurgitation. The left atrium is mildly enlarged. Mild global right ventricular systolic dysfunction. Ordering Physician: Yumiko De Leon Referring Physician: Jason Leal Performed By: Janay Hunt RDCS
[2022-07-04 22:58] LABS: Magnesium 2.1 mg/dL (1.6-2.6); Thyroid Stim Hormone (TSH) 0.62 uIU/mL (0.358-3.74)
[2022-07-05] VITALS (19 sets, daily range): BP systolic 88–130; BP diastolic 64–103; PULSE 90–133; RESP 14–26; TEMP 36.1–37.6; O2SAT 45–98; BMI 24.9
[2022-07-05] MEDS: Methylprednisolone Sod Succ 40 MG/ML VIAL IV ×3 (05:23→21:02)
[2022-07-05] MEDS: Phenytoin Na 100 MG Capsule PO ×3 (05:23→21:03)
[2022-07-05] MEDS: Divalproex Sodium 125 MG Tablet 250 MG PO ×3 (05:23→21:02)
[2022-07-05] MEDS: 0.9% Saline Lock 10 ML Syringe IV ×4 (05:25→21:15)
[2022-07-05] MEDS: guaiFENesin 10 ML UDC (200MG/10ML) PO ×4 (05:57→23:16)
--- NOTE | 2022-07-05 06:26 | EX.PCM.CONCC ---
Assessment & Plan Assessment/Plan (1) Acute and chronic respiratory failure with hypoxia: PLAN: Plan RECOMMENDATIONS: 1. Start scheduled Atrovent aerosols given tachycardia. 2. Agree with obtaining echocardiogram. 3. Continue empiric antimicrobials. 4. Continue IV steroids. 5. Wean FiO2 to maintain oxygen saturations at or above 90%. 6. Obtain INR daily. Continue to hold Coumadin for now. IMPRESSIONS: 1. Acute on chronic combined respiratory failure, likely secondary to COPD exacerbation The patient has a known history of end-stage COPD and chronic hypoxemic respiratory failure with a baseline 5 to 6 L/min oxygen requirement. He is also prescribed a triple therapy inhaler regimen at his baseline and utilizes a noninvasive ventilator in his home environment. The patient presented with worsening shortness of breath and radiographic evidence of a left lower lobe infiltrate. He remains on appropriate therapy with antibiotics, bronchodilators and IV steroids. In light of his persistent tachycardia, I agree with obtaining an echocardiogram. Continue to wean FiO2 to maintain oxygen saturations at or above 90%. 2. History of aortic valve replacement/status post VSD repair/coagulopathy Continue daily Lasix regimen for now. Agree with obtaining an echocardiogram. The patient did present with a supratherapeutic INR. Agree with holding Coumadin for now. Recommend checking INR daily. 3. Unspecified seizure disorder/hypertension/hyperlipidemia Complicates care, management, recovery and prognosis. Continue home medications as indicated. This note was generated with [employer] dictation software. It may contain incorrect words, spelling, and punctuation that were not noted in checking the note before signing. HPI Consult Data Date of Consult: 07/06/22 HPI Narrative Reason for Consultation: COPD exacerbation HPI Narrative: The patient is a 56-year-old male, with a history as outlined below, who presented to [facility] as a transfer from an outside facility with progressive shortness of breath. The patient has underlying MRDD and a baseline, chronic supplemental oxygen requirement, along with end-stage COPD.? He has a [id number] smoking history, having quit completely in 2014. The patient does have a [employer] prosthetic mitral valve in place and is therapeutically anticoagulated on Coumadin. The patient's last pulmonary function test completed in September 2018 revealed evidence of a partially reversible very severe mixed ventilatory defect with associated air trapping and symmetric reduction in diffusing capacity.? There was worsening in the patient's FEV1 when compared to previous pulmonary function studies from June 2017. The patient is typically utilizing 5 to 6 L/min of supplemental oxygen on a continuous basis. On presentation to [facility], the patient was noted to be afebrile, but was mildly tachycardic and otherwise hemodynamically stable. He was requiring heated high flow oxygen support with an FiO2 of 70% and flow rate of 40 L/min. Laboratory evaluation revealed no evidence of a leukocytosis. Coagulation profile was notable for an INR of 5.9. Chemistry profile was notable for a chronically elevated bicarbonate at 35. Creatinine was within normal limits. Chest x-ray demonstrated hyperinflated lung lynch with a left lower lobe infiltrate. The patient was subsequently placed on antimicrobials, bronchodilators and IV steroids. This morning, the patient reported the ongoing presence of shortness of breath and a cough which has been productive of sputum. [facility] Medical History (Updated 07/04/22 @ 14:[address] Kevin Ziegler, ) Acute on chronic respiratory failure with hypoxia Alkaline phosphatase elevation Aortic valve disease Bilateral leg edema Cholelithiasis Chronic hypoxemic respiratory failure Chronic respiratory failure COPD (chronic obstructive pulmonary disease) COVID-19 virus infection Debility, unspecified DVT (deep venous thrombosis) Eczema of hand Essential hypertension GERD (gastroesophageal reflux disease) History of Coumadin therapy Hyperlipidemia Hypersomnia Hypersomnia Hypoxemic respiratory failure, chronic Iatrogenic pneumothorax Learning disability Mixed obstructive and restrictive ventilatory defect Mood disorder Obesity Seizure disorder Shortness of breath Stage 4 very severe COPD by GOLD classification Subtherapeutic international normalized ratio (INR) Subtherapeutic phenytoin level varicose veins Ventricular septal defect Home Medications aspirin 81 mg tablet,delayed release (Adult Aspirin Regimen) 81 mg PO DAILY heart health 03/17/17 [History Last Taken 10/01/21] multivitamin (Multiple Vitamins tablet) 1 tab PO QDAY supplement 03/17/17 [History Last Taken 10/02/21] aluminum-mag hydroxide-simethicone 200 mg-200 mg-20 mg/5 mL oral susp 30 ml PO Q4H PRN Heartburn 04/18/20 [History Last Taken 10/01/21] ascorbate calcium (vitamin C) 500 mg tablet 500 mg PO DAILY supplement 04/18/20 [History Last Taken 10/02/21] melatonin 3 mg capsule 5 mg PO HS PRN Insomnia 04/18/20 [History Last Taken 10/01/21] metoprolol tartrate 25 mg tablet 37.5 mg PO BID heart rate 12/27/20 [History Last Taken 10/02/21] acetaminophen 325 mg tablet (Tylenol) 650 mg PO Q4H PRN PRN Fever, pain 1-12/09 #0 tabs 04/03/21 [Rx Last Taken 10/01/21] albuterol sulfate 90 mcg/actuation aerosol inhaler 2 puff inhalation Q4H PRN shortness of breath or wheezing #8.5 grams 09/19/21 [Rx Last Taken 10/02/21] ferrous sulfate 325 mg (65 mg iron) tablet (FeroSul) 325 mg PO DAILY@1200 #0 tabs 10/04/21 [Rx Last Taken Unknown] ipratropium 0.5 mg-albuterol 3 mg (2.5 mg base)/3 mL nebulization soln 3 ml inhalation Q4HWA.RT PRN SOB #0 mL 10/04/21 [Rx Last Taken Unknown] sennosides 8.6 mg-docusate sodium 50 mg tablet (Stool Softener-Stimulant Laxative) 2 tab PO BID PRN PRN Constipation #0 tabs 10/04/21 [Rx Last Taken Unknown] warfarin 5 mg tablet (Jantoven) 10 mg PO DAILY@1700 #0 tabs 10/04/21 [Rx Last Taken Unknown] cyanocobalamin (vitamin B-12) 1,000 mcg tablet 1,000 mcg PO DAILY 10/05/21 [History Last Taken Unknown] fluticasone fur. 200 mcg-umeclid 62.5 mcg-vilant 25 mcg inhalat.powder (Trelegy Ellipta) 1 inh inhalation DAILY 10/05/21 [History Last Taken Unknown] guaifenesin 1,200 mg tablet, extended release 12 hr (Mucus Relief ER) 600 mg PO BID 10/05/21 [History Last Taken Unknown] furosemide 40 mg tablet 40 mg PO DAILY #90 tabs 10/16/21 [Rx Last Taken Unknown] phenytoin sodium extended 100 mg capsule (Dilantin Extended) 100 mg PO TID seizures #90 caps 01/21/22 [Rx Last Taken Unknown] atorvastatin 20 mg tablet 20 mg PO DAILY 04/29/22 [History Last Taken Unknown] cetirizine 10 mg capsule (Zyrtec) 10 mg PO DAILY PRN 04/29/22 [History Last Taken Unknown] divalproex 125 mg tablet,delayed release (Depakote) 250 mg PO TID 04/29/22 [History Last Taken Unknown] cimetidine 200 mg tablet 400 mg PO QACHS 06/27/22 [History Last Taken Unknown] fluoxetine 40 mg capsule (Prozac) 50 mg PO DAILY 06/27/22 [History Last Taken Unknown] folic acid 1 mg tablet 1 mg PO DAILY 06/27/22 [History Last Taken Unknown] cholecalciferol (vitamin D3) 50 mcg (2,000 unit) capsule (Vitamin D3) 2,000 mcg PO DAILY Check with primary doctor 07/04/22 [History Last Taken Unknown] Allergy/AdvReac Type Severity Reaction Status Date / Time No Known Allergies Allergy Verified 06/27/22 14:44 Family History Father Lung cancer Osteoarthritis Mother Diabetes Thyroid disorder High cholesterol Breast cancer Grandmother Heart disease CVA (cerebral vascular accident) Surgical History H/O aortic root repair H/O aortic valve replacement H/O hernia repair History of mechanical aortic valve replacement (~12/06/12) S/P VSD repair Social History household members: none current occupational status: disabled Smoking Status: Former smoker quit date: 03/02/12 pack-years: 40 Tobacco: How many years used: 35 second hand exposure: No alcohol intake: never substance use type: does not use ROS ROS Narrative 10 systems reviewed with pertinent positives as noted in the HPI above. Physical Exam Const alert General Appearance: cooperative and ill appearing HEENT normocephalic and head/scalp atraumatic Eyes PERRL, EOMs intact bilaterally and conjunctivae normal Neck supple General: trachea midline Chest inspection of chest normal Resp Effort and Inspection: tachypneic Auscultation: rales and diminished lung sounds Cardio S1 normal heart sound and S2 normal heart sound Rate: tachycardic Heart Sounds: murmur GI normal to inspection, nondistended, normoactive bowel sounds Extremity no clubbing, cyanosis or edema Skin no rashes or lesions noted Neuro CN's II-XII intact bilaterally and no focal motor deficits Psych Mood & Affect: flat affect Lab / Micro Data Result Diagrams: 07/05/22 07:05 07/05/22 07:05 Labs: Laboratory Results - last 24 hr 07/04/22 15:45: WBC 5.8, RBC 3.70 L, Hgb 11.6 L, Hct 37.8 L, MCV 102.2 H, MCH 31.4, MCHC 30.7 L, RDW Std Deviation 53.1 H, RDW Coeff of Joseluis 14.0, Plt Count 110 L, MPV 12.2 H 07/04/22 15:45: Sodium 140, Potassium 4.1, Chloride 100, Carbon Dioxide 35.0 H, Anion Gap 5, BUN 26 H, Creatinine 1.14, Estim Creat Clear Calc 78.47, Est GFR (MDRD) Af Amer 85, Est GFR (MDRD) Non-Af 70, BUN/Creatinine Ratio 22.8 H, Glucose 167 H, Calcium 8.8, Total Bilirubin 0.30, AST 18, ALT 21, Alkaline Phosphatase 174 H, Total Protein 7.0, Albumin 2.6 L, Globulin 4.4 H, Albumin/Globulin Ratio 0.6 L 07/04/22 15:45: Magnesium 2.1, TSH 0.62 07/04/22 17:00: PT 54.3 H, INR 5.9 H* Micro: Microbiology 07/04/22 15:15 Mucosa - Nose Respiratory Panel (PCR) - Final 07/04/22 15:27 Urine, Random Legionella Antigen - Final 07/04/22 15:27 Urine, Random Streptococcus pneumoniae Antigen (M - Final 07/04/22 15:15 Nasal Secretion SARS-CoV-2 & FLU Antigen (Rapid) - Final Radiology Impression Chest X-Ray 07/04/22 16:35 IMPRESSION: Question left lower lobe infiltrate without other major interval change. Electronically Signed: Isai Law DO at 23:02 EDT Reading Location ID and State: [facility] / [place] Tel [phone], Service support , Charges/Coding Visit Charges Inpatient E&M: 31056 Init Hosp L3
--- NOTE | 2022-07-05 06:40 | NURSING ---
Pt's heart rate increased again to 120's-140's afib rvr informed DR sue. New orders received for cardizem x1 and increased metoprolol.
[2022-07-05] MEDS: dilTIAZem 25 MG/5 ML Vial 10 MG IV BOLUS ×2 (06:52→21:13)
[2022-07-05] MEDS: Metoprolol Tartrate 50 MG Tablet PO ×2 (06:55→19:00)
--- NOTE | 2022-07-05 06:55 | NURSING ---
Lopressor given early per physician request
[2022-07-05 07:44] LABS: Absolute Lymphocyte Count 0.69 X10^3/uL (0.83-4.51); Absolute Neutrophil Count 4.3 X10^3/uL (2.0-7.7); Basophil# 0.03 X10^3/uL; Basophil% 0.5 % (0-1); Eosinophil# 0.03 X10^3/uL; Eosinophils% 0.5 % (0-5); Hematocrit 37.9 % (40-54); Hemoglobin 11.7 g/dL (13.0-16.5); Lymphocyte # 0.69 X10^3/ul (0.83-4.51); Lymphocyte % 11.8 % (19-41); Mean Corp Hgb Conc 30.9 g/dL (32-36); Mean Corpuscular Hgb 31.4 pg (27.0-32.0); Mean Corpuscular Volume 101.6 fL (80-94); Monocyte# 0.74 X10^3/uL; Monocyte% 12.6 % (0-10); NRBC Flagged by Analyzer 0 % (0-5); Neutrophil % 73.4 % (47-70); Platelet Count 116 K/mm3 (150-450); RBC Distribution Width CV 13.8 % (11.6-14.6); RBC Distribution Width SD 51.9 fl (35.1-43.9); Red Blood Count 3.73 M/mm3 (4.6-6.2); White Blood Count 5.9 K/mm3 (4.4-11.0)
[2022-07-05] MEDS: Ensure Plus High Protein 120 ML LIQUID PO ×3 (07:58→17:05)
[2022-07-05 08:11] LABS: International Normalized Ratio 4.2; Prothrombin Time (Protime)PT. 40.8 SECONDS (11.7-14.9)
[2022-07-05 08:15] LABS: Anion Gap 5 (5-15); BUN 35 mg/dL (7-18); BUN/Creat Ratio 38.9 RATIO (10-20); Calcium,Total 8.9 mg/dL (8.5-10.1); Chloride 101 mmol/L (98-107); EST Glomerular Filtration Rate 92 mL/min (>60); Est Glom Filt Rate - Afr Amer 112 mL/min (>60); Glucose 136 mg/dL (74-106); Potassium 4.2 mmol/L (3.5-5.1); Sodium Level 140 mmol/L (136-145)
[2022-07-05 08:26] LABS: BNP,B-Type NATRIURETIC PEPTIDE 354.9 pg/mL (0-100)
[2022-07-05 08:31] LABS: Troponin-I HS 20 pg/mL (3.0-78.0)
[2022-07-05] MEDS: Furosemide 40 MG Tablet PO (09:12)
[2022-07-05] MEDS: Fluoxetine HCl 40 MG CAPSULE PO (09:12)
[2022-07-05] MEDS: FLUoxetine 10 MG Capsule PO (09:13)
--- NOTE | 2022-07-05 12:23 | PN_ITS ---
Subjective Subjective Patient seen and examined. He had no complaints. He said he was feeling better today. His breathing had improved. Review of systems otherwise negative. He was on 10 L of oxygen at time of review. He has otherwise remained hemodynamically stable. Objective Data Objective Data Vital Signs: Vital Signs Temp Pulse Resp BP Pulse Ox O2 Del Method O2 Flow Rate 98.2 F 121 H 17 113/74 96 Nasal Cannula 10 07/05/22 12:00 07/05/22 12:00 07/05/22 12:00 07/05/22 12:00 07/05/22 12:00 07/05/22 12:00 07/05/22 12:00 FiO2 48 07/05/22 06:55 Oxygen Flow Rate (L/min) 10 Oxygen Delivery Method Nasal Cannula Weight: 183 lb 13.848 oz Body Mass Index (BMI) 24.9 Intake & Output: Intake and Output for Last 24 Hours 07/03/22 07/04/22 07/05/22 23:59 23:59 23:59 Intake Total 360 / 660 420 / 420 Output Total 100 / 100 300 / 300 Balance 260 / 560 120 / 120 Lab / Micro Data Result Diagrams: 07/05/22 07:05 07/05/22 07:05 Labs: Laboratory Results - last 24 hr 07/04/22 15:45: WBC 5.8, RBC 3.70 L, Hgb 11.6 L, Hct 37.8 L, MCV 102.2 H, MCH 31.4, MCHC 30.7 L, RDW Std Deviation 53.1 H, RDW Coeff of Joseluis 14.0, Plt Count 110 L, MPV 12.2 H 07/04/22 15:45: Sodium 140, Potassium 4.1, Chloride 100, Carbon Dioxide 35.0 H, Anion Gap 5, BUN 26 H, Creatinine 1.14, Estim Creat Clear Calc 78.47, Est GFR (MDRD) Af Amer 85, Est GFR (MDRD) Non-Af 70, BUN/Creatinine Ratio 22.8 H, Glucose 167 H, Calcium 8.8, Total Bilirubin 0.30, AST 18, ALT 21, Alkaline Phosphatase 174 H, Total Protein 7.0, Albumin 2.6 L, Globulin 4.4 H, Albumin/Globulin Ratio 0.6 L 07/04/22 15:45: Magnesium 2.1, TSH 0.62 07/04/22 17:00: PT 54.3 H, INR 5.9 H* 07/05/22 07:05: WBC 5.9, RBC 3.73 L, Hgb 11.7 L, Hct 37.9 L, MCV 101.6 H, MCH 31.4, MCHC 30.9 L, RDW Std Deviation 51.9 H, RDW Coeff of Joseluis 13.8, Plt Count 116 L, MPV 12.0, Immature Gran % (Auto) 1.200 H, Neut % (Auto) 73.4 H, Lymph % (Auto) 11.8 L, [place] % (Auto) 12.6 H, Eos % (Auto) 0.5, Baso % (Auto) 0.5, Absolute Neuts (auto) 4.3, Absolute Lymphs (auto) 0.69 L, Nucleated RBC % 0 07/05/22 07:05: PT 40.8 H, INR 4.2 H* 07/05/22 07:05: Sodium 140, Potassium 4.2, Chloride 101, Carbon Dioxide 34.0 H, Anion Gap 5, BUN 35 H, Creatinine 0.90, Estim Creat Clear Calc 99.40, Est GFR (MDRD) Af Amer 112, Est GFR (MDRD) Non-Af 92, BUN/Creatinine Ratio 38.9 H, Glucose 136 H, Calcium 8.9 07/05/22 07:30: Troponin I High Sens 20 07/05/22 07:30: B-Natriuretic Peptide 354.9 H 07/05/22 07:30: PT Cancelled, INR Cancelled Micro: Microbiology 07/04/22 15:15 Mucosa - Nose Respiratory Panel (PCR) - Final 07/04/22 15:27 Urine, Random Legionella Antigen - Final 07/04/22 15:27 Urine, Random Streptococcus pneumoniae Antigen (M - Final 07/04/22 15:15 Nasal Secretion SARS-CoV-2 & FLU Antigen (Rapid) - Final Radiography Diagnostic Testing: Radiology Impression Chest X-Ray 07/04/22 16:35 IMPRESSION: Question left lower lobe infiltrate without other major interval change. Electronically Signed: Isai Law DO at 23:02 EDT Reading Location ID and State: [address] [place] [address] Tel [phone], Service support , Echocardiogram 07/04/22 22:08 Interpretation Summary The left ventricular ejection fraction is 50 %. Mild tricuspid valve insufficiency. Moderate pulmonary hypertension. Prosthetic aortic valve not well visualized however gradient across it same as study from 12/13/2019. Trivial regurgitation. The left atrium is mildly enlarged. Mild global right ventricular systolic dysfunction. Ordering Physician: Yumiko De Leon Referring Physician: Jason Leal Performed By: Janay Hunt RDCS Physical Exam Const alert and no apparent distress General Appearance: cooperative HEENT normocephalic, head/scalp atraumatic and moist oral mucous membranes Neck no lymphadenopathy, supple and thyroid normal Lymph Lymphatic: no lymphadenopathy noted and no lymphedema noted Resp Resp Narrative: Mildly diminished breath sounds bibasally. No wheezes or crackles. On 10 L of oxygen by nasal cannula. Cardio S1 normal heart sound and S2 normal heart sound Cardio Narrative: Tachycardic. Has a loud mechanical valve click audible in all valvular areas but most audible in the aortic valve area. GI normal to inspection, nondistended, normoactive bowel sounds, soft to palpation, non-tender and non-distended Extremity normal capillary refill, no clubbing, cyanosis or edema and no calf tenderness General Extremity: no tenderness to palpation of joints or extremities Skin General Skin Exam: no breakdown Neuro CN's II-XII intact bilaterally, no focal motor deficits and no sensory deficits noted Coordination / Balance: [id number] test normal Psych thought process normal and cooperative Appearance: appropriate Assessment & Plan Assessment/Plan (1) Acute and chronic respiratory failure with hypoxia: (2) COPD exacerbation: PLAN: Plan #Acute on chronic hypoxic respiratory failure due to CHF exacerbation and COPD exacerbation as well as probable pneumonia * Feels much better today. Weaned down to 10 L of oxygen for the high flow nasal cannula. BNP is 354.9. * Currently on breathing treatments of bronchodilators. Titrate oxygen to maintain saturation above 90%. On IV ceftriaxone and azithromycin * Will start diuresis with IV Lasix as well. On IV Solu-Medrol. * Troponins x3 were not elevated. * Urine for strep and Legionella negative. * 2D echo showed EF Of 50% and moderate pulmonary hypertension and prosthetic valve not well visualised and mildly enlarged left atrium, as well as mild global right ventricular dysfunction. * #History of aortic valve disease s/p replacement: Has mechanical aortic valve. On Coumadin. INR was elevated at 5.9 on admission yesterday. Will monitor. Goal INR is 2.5-3.5. #COPD exacerbation: As above #Probable community-acquired pneumonia: As above #Acute on chronic heart failure: 2D echo ordered and pending. #Seizure disorder: On antiepileptics #History of DVT: On Coumadin as above. INR is 4.2 today. Hold Coumadin. #Hyperlipidemia: On statin DVT prophylaxis: Not indicated as patient is anticoagulated and INR was supratherapeutic. Charges/Coding Visit Charges Inpatient E&M: 55311 Subs Hosp L2
--- NOTE | 2022-07-05 13:05 | CASEMGMT ---
Social Work Note ANAID met with patient and introduced herself and role as [facility] Wheel Installer. Patient lying in bed and agreeable to talk. SW inquired about patient's current living arrangements and plan at D/C. Patient reports he is from [facility] and plans to return and was informed he would need to make sure he has transportation back. acid regenerator reports patient will be here through weekend, ANAID sent updates to [facility] via [employer]. Plan: return to [facility] Zayra DAHL, MAGNUS
[2022-07-05] MEDS: Ipratropium 0.5 MG/2.5 ML SOLUTION INHALATION ×2 (19:07→22:32)
[2022-07-05] MEDS: Metoprolol Tartrate 5 MG/5 ML Vial IV (19:11)
--- NOTE | 2022-07-05 20:24 | PCM.HOSP.N ---
Hospitalist Note Patient with ongoing cough. Discussed with RN and will trial guaifenesin/DM combination x1 only and further assess pending its effectiveness. Also patient with recurrent atrial fibrillation with RVR at shift change dose to Lopressor 5 mg x 1 per daytime hospitalist with minimal effect. BP low normal, will dose with Cardizem 10 mg IV x1 only and reassess. Patient beta-hannah was increased the day prior given similar history however this was given early this evening per daytime hospitalist therefore may need to consider adding scheduled Cardizem as does seem to respond to the IV version.
[2022-07-05] MEDS: guaiFENesin/Codeine 5 ML UDC PO (21:00)
[2022-07-05] MEDS: Atorvastatin Calcium 20 MG Tablet PO (21:03)
[2022-07-06] VITALS (36 sets, daily range): BP systolic 103–158; BP diastolic 60–95; PULSE 71–138; RESP 10–26; TEMP 36–36.9; O2SAT 87–98; BMI 24.6
[2022-07-06] MEDS: oxyCODONE 5 MG Tablet PO (00:10)
[2022-07-06] MEDS: Ipratropium 0.5 MG/2.5 ML SOLUTION INHALATION ×5 (02:23→22:55)
[2022-07-06] MEDS: Divalproex Sodium 125 MG Tablet 250 MG PO ×3 (05:28→20:35)
[2022-07-06] MEDS: guaiFENesin 10 ML UDC (200MG/10ML) PO (05:28)
[2022-07-06] MEDS: Phenytoin Na 100 MG Capsule PO ×3 (05:28→20:36)
[2022-07-06] MEDS: Methylprednisolone Sod Succ 40 MG/ML VIAL IV ×3 (05:28→20:35)
[2022-07-06] MEDS: 0.9% Saline Lock 10 ML Syringe IV ×4 (05:36→20:36)
--- NOTE | 2022-07-06 05:45 | PN.CC_ITS ---
Assessment & Plan Assessment/Plan (1) Acute and chronic respiratory failure with hypoxia: PLAN: Plan RECOMMENDATIONS: 1. Continue scheduled Atrovent aerosols given tachycardia. 2. Continue empiric antimicrobials. 3. Continue IV steroids. 4. Wean supplemental oxygen to maintain saturations at or above 90%. 5. Obtain INR daily. Continue to hold Coumadin for now. IMPRESSIONS: 1. Acute on chronic combined respiratory failure, likely secondary to COPD exacerbation The patient has a known history of end-stage COPD and chronic hypoxemic respiratory failure with a baseline 5 to 6 L/min oxygen requirement. He is also prescribed a triple therapy inhaler regimen at his baseline and utilizes a noninvasive ventilator in his home environment. The patient presented with worsening shortness of breath and radiographic evidence of a left lower lobe infiltrate. He remains on appropriate therapy with antibiotics, bronchodilators and IV steroids. Continue to wean supplemental oxygen to maintain oxygen saturations at or above 90%. Encourage incentive spirometer use and mobilize patient as tolerated. 2. History of aortic valve replacement/status post VSD repair/coagulopathy Continue daily Lasix regimen for now. The patient did present with a supratherapeutic INR. Agree with holding Coumadin for now. Recommend checking INR daily. 3. Unspecified seizure disorder/hypertension/hyperlipidemia Complicates care, management, recovery and prognosis. Continue home medications as indicated. This note was generated with [employer] dictation software. It may contain incorrect words, spelling, and punctuation that were not noted in checking the note before signing. Subjective Subjective The patient was seen and examined at the bedside this morning. Events from the last 24 hours have been reviewed. The patient is currently afebrile, hemodynamically stable and maintaining appropriate oxygen saturations on 6 L/min via nasal cannula. Overall, the patient's oxygenation status has improved from yesterday. He continues to have intermittent periods of SVT. He appears more lethargic this morning after receiving pain medications overnight. Objective Data Objective Data The patient's most recent lab work, culture data and imaging studies have all been personally reviewed. Surface echocardiogram demonstrated normal LV size and function with an ejection fraction of 50%. Right ventricular systolic pressure was estimated to be 56 mmHg. Infectious work-up has been unrevealing to date. Vital Signs: Vital Signs Temp Pulse Resp BP Pulse Ox O2 Del Method O2 Flow Rate 97.8 F 120 H 20 H 111/81 H 96 High Flow 6 05//23 04:00 07/06/22 04:00 07/06/22 04:00 07/06/22 04:00 07/06/22 04:00 07/06/22 04:54 07/06/22 04:54 FiO2 48 07/05/22 06:55 Oxygen Flow Rate (L/min) 6 Oxygen Delivery Method High Flow Weight: 181 lb 7.047 oz Body Mass Index (BMI) 24.6 Intake & Output: Intake and Output for Last 24 Hours 07/04/22 07/05/22 07/06/22 23:59 23:59 23:59 Intake Total 360 / 660 1385 / 1385 Output Total 100 / 100 1300 / 1300 Balance 260 / 560 85 / 85 Lab / Micro Data Attestation: I reviewed the patient's lab results. Result Diagrams: 07/06/22 05:24 07/05/22 07:05 Labs: Laboratory Results - last 24 hr 07/05/22 07:05: WBC 5.9, RBC 3.73 L, Hgb 11.7 L, Hct 37.9 L, MCV 101.6 H, MCH 31.4, MCHC 30.9 L, RDW Std Deviation 51.9 H, RDW Coeff of Joseluis 13.8, Plt Count 116 L, MPV 12.0, Immature Gran % (Auto) 1.200 H, Neut % (Auto) 73.4 H, Lymph % (Auto) 11.8 L, [place] % (Auto) 12.6 H, Eos % (Auto) 0.5, Baso % (Auto) 0.5, Absolute Neuts (auto) 4.3, Absolute Lymphs (auto) 0.69 L, Nucleated RBC % 0 07/05/22 07:05: PT 40.8 H, INR 4.2 H* 07/05/22 07:05: Sodium 140, Potassium 4.2, Chloride 101, Carbon Dioxide 34.0 H, Anion Gap 5, BUN 35 H, Creatinine 0.90, Estim Creat Clear Calc 99.40, Est GFR (MDRD) Af Amer 112, Est GFR (MDRD) Non-Af 92, BUN/Creatinine Ratio 38.9 H, Glucose 136 H, Calcium 8.9 07/05/22 07:30: Troponin I High Sens 20 07/05/22 07:30: B-Natriuretic Peptide 354.9 H 07/05/22 07:30: PT Cancelled, INR Cancelled Micro: Microbiology 07/04/22 15:15 Mucosa - Nose Respiratory Panel (PCR) - Final 07/04/22 15:27 Urine, Random Legionella Antigen - Final 07/04/22 15:27 Urine, Random Streptococcus pneumoniae Antigen (M - Final 07/04/22 15:15 Nasal Secretion SARS-CoV-2 & FLU Antigen (Rapid) - Final Radiography Diagnostic Testing: Radiology Impression Echocardiogram 07/04/22 22:08 Interpretation Summary The left ventricular ejection fraction is 50 %. Mild tricuspid valve insufficiency. Moderate pulmonary hypertension. Prosthetic aortic valve not well visualized however gradient across it same as study from 12/13/2019. Trivial regurgitation. The left atrium is mildly enlarged. Mild global right ventricular systolic dysfunction. Ordering Physician: Yumiko De Leon Referring Physician: Jason Leal Performed By: Janay Hunt RDCS Physical Exam Const no apparent distress General Appearance: lethargic and ill appearing HEENT normocephalic and head/scalp atraumatic Eyes PERRL, EOMs intact bilaterally and conjunctivae normal Neck supple General: trachea midline Chest inspection of chest normal Resp Effort and Inspection: tachypneic Auscultation: rales and diminished lung sounds Cardio S1 normal heart sound and S2 normal heart sound Cardio Narrative: Ejection click present. Rate: tachycardic Heart Sounds: murmur GI normal to inspection, nondistended, normoactive bowel sounds Extremity no clubbing, cyanosis or edema Skin no rashes or lesions noted Neuro CN's II-XII intact bilaterally and no focal motor deficits Psych Mood & Affect: flat affect Charges/Coding Visit Charges Inpatient E&M: 14509 Subs Hosp L2
[2022-07-06 06:29] LABS: Absolute Lymphocyte Count 0.85 X10^3/uL (0.83-4.51); Absolute Neutrophil Count 3.4 X10^3/uL (2.0-7.7); Basophil# 0.03 X10^3/uL; Basophil% 0.6 % (0-1); Eosinophil# 0.01 X10^3/uL; Eosinophils% 0.2 % (0-5); Hematocrit 35.6 % (40-54); Hemoglobin 11.2 g/dL (13.0-16.5); Lymphocyte # 0.85 X10^3/ul (0.83-4.51); Lymphocyte % 16.3 % (19-41); Mean Corp Hgb Conc 31.5 g/dL (32-36); Mean Corpuscular Hgb 32.7 pg (27.0-32.0); Mean Corpuscular Volume 104.1 fL (80-94); Mean Platelet Vol. 12.1 fl (6.2-12.0); Monocyte# 0.81 X10^3/uL; Monocyte% 15.5 % (0-10); NRBC Flagged by Analyzer 0 % (0-5); Neutrophil % 65.1 % (47-70); Platelet Count 139 K/mm3 (150-450); RBC Distribution Width CV 13.7 % (11.6-14.6); RBC Distribution Width SD 52.6 fl (35.1-43.9); Red Blood Count 3.42 M/mm3 (4.6-6.2); White Blood Count 5.2 K/mm3 (4.4-11.0)
[2022-07-06 06:39] LABS: International Normalized Ratio 2.2; Prothrombin Time (Protime)PT. 24.6 SECONDS (11.7-14.9)
[2022-07-06 07:00] LABS: Anion Gap 4 (5-15); BUN 36 mg/dL (7-18); BUN/Creat Ratio 40.2 RATIO (10-20); Calcium,Total 8.6 mg/dL (8.5-10.1); Chloride 102 mmol/L (98-107); EST Glomerular Filtration Rate 93 mL/min (>60); Est Glom Filt Rate - Afr Amer 112 mL/min (>60); Glucose 133 mg/dL (74-106); Potassium 4.4 mmol/L (3.5-5.1); Sodium Level 141 mmol/L (136-145)
[2022-07-06] MEDS: Metoprolol Tartrate 50 MG Tablet PO ×2 (08:03→20:35)
[2022-07-06] MEDS: Furosemide 40 MG Tablet PO (08:03)
[2022-07-06] MEDS: FLUoxetine 10 MG Capsule PO (08:04)
[2022-07-06] MEDS: Ensure Plus High Protein 120 ML LIQUID PO ×3 (08:04→16:18)
[2022-07-06] MEDS: Fluoxetine HCl 40 MG CAPSULE PO (08:04)
[2022-07-06] MEDS: dilTIAZem 25 MG/5 ML Vial 20 MG IV BOLUS (08:59)
--- NOTE | 2022-07-06 10:54 | PN_ITS ---
Subjective Subjective Patient seen and examined. He has no active complaints. He is still coughing. Review of systems is otherwise negative. he has been tachcyardic, and required boluses of IV cardizem overnight. He still remains tachycardic today. He is on 10L of oxygen by nasal canula. Review of systems is otherwise negative. Objective Data Objective Data Vital Signs: Vital Signs Temp Pulse Resp BP Pulse Ox O2 Del Method O2 Flow Rate 97.6 F L 73 18 110/68 96 High Flow 10 07/06/22 10:00 07/06/22 10:00 07/06/22 10:00 07/06/22 10:00 07/06/22 10:00 07/06/22 10:00 07/06/22 10:00 FiO2 48 07/05/22 06:55 Oxygen Flow Rate (L/min) 10 Oxygen Delivery Method High Flow Weight: 181 lb 7.047 oz Body Mass Index (BMI) 24.6 Intake & Output: Intake and Output for Last 24 Hours 07/04/22 07/05/22 07/06/22 23:59 23:59 23:59 Intake Total 360 / 660 1385 / 1385 450 / 450 Output Total 100 / 100 1300 / 1300 500 / 500 Balance 260 / 560 85 / 85 -50 / -50 Lab / Micro Data Result Diagrams: 07/06/22 05:24 07/06/22 05:24 Labs: Laboratory Results - last 24 hr 07/06/22 05:24: PT 24.6 H, INR 2.2 07/06/22 05:24: WBC 5.2, RBC 3.42 L, Hgb 11.2 L, Hct 35.6 L, MCV 104.1 H, MCH 32.7 H, MCHC 31.5 L, RDW Std Deviation 52.6 H, RDW Coeff of Joseluis 13.7, Plt Count 139 L, MPV 12.1 H, Immature Gran % (Auto) 2.300 H, Neut % (Auto) 65.1, Lymph % (Auto) 16.3 L, [place] % (Auto) 15.5 H, Eos % (Auto) 0.2, Baso % (Auto) 0.6, Absolute Neuts (auto) 3.4, Absolute Lymphs (auto) 0.85, Nucleated RBC % 0 07/06/22 05:24: Sodium 141, Potassium 4.4, Chloride 102, Carbon Dioxide 35.0 H, Anion Gap 4 L, BUN 36 H, Creatinine 0.90, Estim Creat Clear Calc 99.40, Est GFR (MDRD) Af Amer 112, Est GFR (MDRD) Non-Af 93, BUN/Creatinine Ratio 40.2 H, Glucose 133 H, Calcium 8.6 Micro: Microbiology 07/04/22 15:15 Mucosa - Nose Respiratory Panel (PCR) - Final 07/04/22 15:27 Urine, Random Legionella Antigen - Final 07/04/22 15:27 Urine, Random Streptococcus pneumoniae Antigen (M - Final 07/04/22 15:15 Nasal Secretion SARS-CoV-2 & FLU Antigen (Rapid) - Final Radiography Diagnostic Testing: Radiology Impression Echocardiogram 07/04/22 22:08 Interpretation Summary The left ventricular ejection fraction is 50 %. Mild tricuspid valve insufficiency. Moderate pulmonary hypertension. Prosthetic aortic valve not well visualized however gradient across it same as study from 12/13/2019. Trivial regurgitation. The left atrium is mildly enlarged. Mild global right ventricular systolic dysfunction. Ordering Physician: Yumiko De Leon Referring Physician: Jason Leal Performed By: Janay Hunt, JUAN ANTONIO Physical Exam Const alert, oriented x3 and no apparent distress General Appearance: cooperative HEENT normocephalic, head/scalp atraumatic and moist oral mucous membranes Neck no lymphadenopathy, supple and thyroid normal Lymph Lymphatic: no lymphadenopathy noted and no lymphedema noted Resp Resp Narrative: Mildly diminished breath sounds bibasally. No wheezes or crackles. On 10 L of oxygen by nasal cannula. Cardio S1 normal heart sound and S2 normal heart sound Cardio Narrative: Tachycardic. Has a loud mechanical valve click audible in all valvular areas but most audible in the aortic valve area. GI normal to inspection, nondistended, normoactive bowel sounds, soft to palpation, non-tender and non-distended Extremity normal to inspection, full ROM, normal capillary refill, no clubbing, cyanosis or edema and no calf tenderness General Extremity: no tenderness to palpation of joints or extremities Skin General Skin Exam: no breakdown Neuro CN's II-XII intact bilaterally, moves all extremities, no focal motor deficits and no sensory deficits noted Sensorium / Orientation: awake and alert Coordination / Balance: [id number] test normal Psych thought process normal, cooperative and affect normal Appearance: appropriate Assessment & Plan Assessment/Plan (1) Acute and chronic respiratory failure with hypoxia: (2) COPD exacerbation: PLAN: Plan #Acute on chronic hypoxic respiratory failure due to CHF exacerbation and COPD exacerbation as well as probable pneumonia * still on 10L of oxygen. Weaned down to 10 L of oxygen for the high flow nasal cannula. BNP is 354.9. * Currently on breathing treatments with bronchodilators. Titrate oxygen to maintain saturation above 90%. On IV ceftriaxone and azithromycin * on IV lasix. On IV Solu-Medrol. * Troponins x3 were not elevated. * Urine for strep and Legionella negative. * 2D echo showed EF Of 50% and moderate pulmonary hypertension and prosthetic valve not well visualised and mildly enlarged left atrium, as well as mild global right ventricular dysfunction. * #History of aortic valve disease s/p replacement: Has mechanical aortic valve. On Coumadin. INR down to 2.2 today. Will resume coumadin. Goal INR is 2.5-3.5 #Tachycardia * Patient has been tachycardic and required boluses of Cardizem overnight. Heart rate was in the 130s today. I did give him another bolus of Cardizem 20 mg x 1. Patient on metoprolol. We will continue and consider increasing metoprolol dose to help better control heart rate. * IV Lopressor as needed. * 2D echo as above. Albuterol every 2 as needed discontinued. * #COPD exacerbation: As above #Probable community-acquired pneumonia: As above #Acute on chronic heart failure: 2D echo showed EF of 50% with moderate pulmonary hypertension and prosthetic aortic valve as well as mild global right ventricular systolic dysfunction and mildly enlarged left atrium. #Seizure disorder: On antiepileptics #History of DVT: On Coumadin as above. INR is 2.2 today. Will resume coumadin #Hyperlipidemia: On statin DVT prophylaxis: Not indicated as patient is anticoagulated. INR is 2.2 today. Charges/Coding Visit Charges Inpatient E&M: 92453 Subs Hosp L2
[2022-07-06] MEDS: Benzonatate 100 MG Capsule PO ×3 (11:14→20:35)
--- NOTE | 2022-07-06 15:03 | EKG12_ITS ---
Test Reason : DYSRHYTHMIA Blood Pressure : / mmHG Vent. Rate : 124 BPM Atrial Rate : 000 BPM P-R Int : 000 ms QRS Dur : 158 ms QT Int : 370 ms P-R-T Axes : 000 -68 086 degrees QTc Int : 531 ms Atrial fibrillation with rapid ventricular response Right bundle branch block Left anterior fascicular block Bifascicular block Abnormal ECG When compared with ECG of 04-JUL-2022 21:49, MANUAL COMPARISON REQUIRED, DATA IS UNCONFIRMED Confirmed by ESTEPHANIE HEARD, RODRIGO ([id number]), science editor JAIDEN KANG ([id number]) on 07/08/2022 1:17:45 PM Referred By: KIM Confirmed By:JUAN HUMMEL MD
[2022-07-06] MEDS: Digoxin 250 MCG/ML Ampul 500 MCG IV (15:49)
[2022-07-06] MEDS: Furosemide 40 MG/4 ML Vial IV (17:01)
[2022-07-06] MEDS: Atorvastatin Calcium 20 MG Tablet PO (20:35)
[2022-07-06] MEDS: guaiFENesin Dm 10 ML UDC PO (21:17)
[2022-07-07] VITALS (35 sets, daily range): BP systolic 102–154; BP diastolic 63–89; PULSE 67–140; RESP 14–33; TEMP 36.6–36.9; O2SAT 90–97; BMI 24.5
[2022-07-07] MEDS: Benzonatate 100 MG Capsule PO ×3 (01:19→21:27)
[2022-07-07] MEDS: guaiFENesin Dm 10 ML UDC PO ×2 (03:13→11:38)
--- NOTE | 2022-07-07 05:34 | NURSING ---
Pt complaining of difficulty breathing and persistent cough. This RN informed pt that his oxygen saturation is 94% on airvo 50L 55%. Pt has received PRN robitussin and PRN tessalon perles as often as possible according to order. RT has also been in to assess pt. Offered to help reposition pt, pt declined. Encouraged pt to continue practicing deep breathing and coughing. Also encouraged pt to use PEP therapy and to wear bipap, pt refused. Emotional support provided.
[2022-07-07] MEDS: Divalproex Sodium 125 MG Tablet 250 MG PO ×3 (05:57→21:23)
[2022-07-07] MEDS: 0.9% Saline Lock 10 ML Syringe IV ×2 (05:58→21:23)
[2022-07-07] MEDS: Methylprednisolone Sod Succ 40 MG/ML VIAL IV ×3 (05:58→21:24)
[2022-07-07] MEDS: Phenytoin Na 100 MG Capsule PO ×3 (05:58→21:23)
[2022-07-07 06:45] LABS: Absolute Lymphocyte Count 0.72 X10^3/uL (0.83-4.51); Absolute Neutrophil Count 8.3 X10^3/uL (2.0-7.7); Basophil# 0.08 X10^3/uL; Basophil% 0.7 % (0-1); Eosinophil# 0.01 X10^3/uL; Eosinophils% 0.1 % (0-5); Hematocrit 38.2 % (40-54); Hemoglobin 11.8 g/dL (13.0-16.5); Lymphocyte # 0.72 X10^3/ul (0.83-4.51); Lymphocyte % 6.7 % (19-41); Mean Corp Hgb Conc 30.9 g/dL (32-36); Mean Corpuscular Hgb 31.6 pg (27.0-32.0); Mean Corpuscular Volume 102.4 fL (80-94); Mean Platelet Vol. 12.9 fl (6.2-12.0); Monocyte# 1.41 X10^3/uL; NRBC Flagged by Analyzer 0 % (0-5); Neutrophil # 8.31 X10^3/uL (2.7-7.7); Neutrophil % 76.9 % (47-70); POSITIVE COUNT YES; Platelet Count 142 K/mm3 (150-450); RBC Distribution Width CV 13.6 % (11.6-14.6); RBC Distribution Width SD 51.7 fl (35.1-43.9); Red Blood Count 3.73 M/mm3 (4.6-6.2); White Blood Count 10.8 K/mm3 (4.4-11.0)
[2022-07-07 07:01] LABS: Anion Gap 6 (5-15); BUN 35 mg/dL (7-18); BUN/Creat Ratio 38.9 RATIO (10-20); Calcium,Total 8.9 mg/dL (8.5-10.1); Chloride 99 mmol/L (98-107); EST Glomerular Filtration Rate 92 mL/min (>60); Est Glom Filt Rate - Afr Amer 112 mL/min (>60); Glucose 146 mg/dL (74-106); Potassium 4.3 mmol/L (3.5-5.1); Sodium Level 138 mmol/L (136-145)
[2022-07-07 07:05] LABS: Differential Indicated SCAN CRITERIA MET
[2022-07-07] MEDS: Ipratropium 0.5 MG/2.5 ML SOLUTION INHALATION ×4 (07:38→20:06)
--- NOTE | 2022-07-07 08:09 | PN.CC_ITS ---
Assessment & Plan Assessment/Plan (1) Acute and chronic respiratory failure with hypoxia: PLAN: Plan RECOMMENDATIONS: 1. Continue scheduled Atrovent aerosols given tachycardia. 2. Continue empiric antimicrobials to complete 5 days. 3. Continue IV steroids. 4. Wean supplemental oxygen to maintain saturations at or above 90%. 5. Obtain INR daily. Continue to hold Coumadin for now. IMPRESSIONS: 1. Acute on chronic combined respiratory failure, likely secondary to COPD exacerbation The patient has a known history of end-stage COPD and chronic hypoxemic respiratory failure with a baseline 5 to 6 L/min oxygen requirement. He is also prescribed a triple therapy inhaler regimen at his baseline. Patient does not use his home noninvasive ventilator as prescribed. The patient presented with worsening shortness of breath and radiographic evidence of a left lower lobe infiltrate. He remains on appropriate therapy with antibiotics, bronchodilators and IV steroids. We will keep steroids at the current level until patient improves. Failure to comply with BiPAP therapy does increase risk of poor outcome. Continue to wean supplemental oxygen to maintain oxygen saturations at or above 90%. Encourage incentive spirometer use and mobilize patient as tolerated. 2. History of aortic valve replacement/status post VSD repair/coagulopathy Continue daily Lasix regimen for now. The patient did present with a supratherapeutic INR. Agree with holding Coumadin for now. Recommend checking INR daily. 3. Unspecified seizure disorder/hypertension/hyperlipidemia Complicates care, management, recovery and prognosis. Continue home medications as indicated. This note was generated with [employer]ago[employer] dictation software. It may contain incorrect words, spelling, and punctuation that were not noted in checking the note before signing. Subjective Subjective Patient reported significant difficulty overnight. Patient was not able to tolerate BiPAP therapy and reports that he stayed awake all night because of coughing. Patient reports white sputum. No hemoptysis or epistaxis has been reported. Objective Data Objective Data Vital Signs: Vital Signs Temp Pulse Resp BP Pulse Ox O2 Del Method O2 Flow Rate 36.6 C 120 H 18 131/83 H 95 Airvo 50 07/07/22 07:00 07/07/22 07:00 07/07/22 07:00 07/07/22 07:00 07/07/22 07:00 07/07/22 07:00 07/07/22 07:00 FiO2 55 07/07/22 07:00 Oxygen Flow Rate (L/min) 50 Oxygen Delivery Method Airvo Weight: 82.1 kg Body Mass Index (BMI) 24.5 Intake & Output: Intake and Output for Last 24 Hours 07/05/22 07/06/22 07/07/22 23:59 23:59 23:59 Intake Total 1385 / 1385 1644.50 / 1664.50 90 / 90 Output Total 1300 / 1300 1350 / 1850 500 / 500 Balance 85 / 85 294.50 / -185.50 -410 / -410 Lab / Micro Data Attestation: I reviewed the patient's lab results. Result Diagrams: 07/07/22 05:50 07/07/22 05:50 Labs: Laboratory Results - last 24 hr 07/07/22 05:50: WBC 10.8, RBC 3.73 L, Hgb 11.8 L, Hct 38.2 L, MCV 102.4 H, MCH 31.6, MCHC 30.9 L, RDW Std Deviation 51.7 H, RDW Coeff of Joseluis 13.6, Plt Count 142 L, MPV 12.9 H, Immature Gran % (Auto) 2.600 H, Neut % (Auto) 76.9 H, Lymph % (Auto) 6.7 L, [place] % (Auto) 13.0 H, Eos % (Auto) 0.1, Baso % (Auto) 0.7, Absolute Neuts (auto) 8.3 H, Absolute Lymphs (auto) 0.72 L, Nucleated RBC % 0 07/07/22 05:50: Sodium 138, Potassium 4.3, Chloride 99, Carbon Dioxide 33.0 H, Anion Gap 6, BUN 35 H, Creatinine 0.90, Estim Creat Clear Calc 99.40, Est GFR (MDRD) Af Amer 112, Est GFR (MDRD) Non-Af 92, BUN/Creatinine Ratio 38.9 H, Glucose 146 H, Calcium 8.9 Micro: Microbiology 07/04/22 15:45 Blood Culture (Wb) - No Site/Description Given Blood Culture - Preliminary No growth in 48 hours. 07/04/22 15:27 Blood Culture (Wb) - Right Hand Blood Culture - Preliminary No growth in 48 hours. 07/04/22 15:15 Mucosa - Nose Respiratory Panel (PCR) - Final 07/04/22 15:27 Urine, Random Legionella Antigen - Final 07/04/22 15:27 Urine, Random Streptococcus pneumoniae Antigen (M - Final 07/04/22 15:15 Nasal Secretion SARS-CoV-2 & FLU Antigen (Rapid) - Final Physical Exam Const alert and no apparent distress Constitutional Narrative: Appears older than his stated age General Appearance: cooperative and ill appearing HEENT normocephalic and head/scalp atraumatic Eyes PERRL, EOMs intact bilaterally and conjunctivae normal Neck supple General: trachea midline Chest inspection of chest normal Resp Effort and Inspection: tachypneic Auscultation: rales, rhonchi throughout and diminished lung sounds Cardio S1 normal heart sound and S2 normal heart sound Cardio Narrative: Ejection click present. Rate: tachycardic Heart Sounds: murmur GI normal to inspection, nondistended, normoactive bowel sounds Extremity no clubbing, cyanosis or edema Skin no rashes or lesions noted Neuro CN's II-XII intact bilaterally and no focal motor deficits Psych Mood & Affect: flat affect Charges/Coding Visit Charges Inpatient E&M: 23068 Subs Hosp L3
[2022-07-07] MEDS: Ensure Plus High Protein 120 ML LIQUID PO ×2 (08:27→17:21)
[2022-07-07] MEDS: Furosemide 40 MG/4 ML Vial IV (08:31)
[2022-07-07] MEDS: FLUoxetine 10 MG Capsule PO (08:34)
[2022-07-07] MEDS: Fluoxetine HCl 40 MG CAPSULE PO (08:35)
[2022-07-07] MEDS: Metoprolol Tartrate 50 MG Tablet PO ×2 (08:35→21:23)
[2022-07-07 08:39] LABS: Prothrombin Time (Protime)PT. 22.9 SECONDS (11.7-14.9)
--- NOTE | 2022-07-07 09:28 | CASEMGMT ---
Discharge Planning Updates sent to Franklyn Matson. Cleopatra Salazar
--- NOTE | 2022-07-07 11:01 | PN.HOSP_ITS ---
Reason for Visit Reason for Visit: Diagnoses Nonrheumatic aortic valve disorder, unspecified (07/04/22) Pneumonia, unspecified organism (07/04/22) Chronic obstructive pulmonary disease with (acute) exacerbation (07/04/22) Acute and chronic respiratory failure with hypoxia (07/04/22) Subjective Subjective Continues to feel short of breath and has high requirements, dependent on Airvo and BiPAP Objective Data Objective Data Vital Signs: Vital Signs Temp Pulse Resp BP Pulse Ox O2 Del Method O2 Flow Rate 98.1 F 71 17 124/79 H 96 Airvo 50 07/07/22 09:00 07/07/22 09:47 07/07/22 09:00 07/07/22 09:00 07/07/22 09:00 07/07/22 09:47 07/07/22 09:47 FiO2 55 07/07/22 09:47 Oxygen Flow Rate (L/min) 50 Oxygen Delivery Method Airvo Weight: 82.1 kg Body Mass Index (BMI) 24.5 Intake & Output: Intake and Output for Last 24 Hours 07/05/22 07/06/22 07/07/22 23:59 23:59 23:59 Intake Total 1385 / 1385 1644.50 / 1664.50 281.13 / 281.13 Output Total 1300 / 1300 1350 / 1850 500 / 500 Balance 85 / 85 294.50 / -185.50 -218.87 / -218.87 Lab / Micro Data Result Diagrams: 07/07/22 05:50 07/07/22 05:50 Labs: Laboratory Results - last 24 hr 07/07/22 05:50: PT 22.9 H, INR 2.0 07/07/22 05:50: WBC 10.8, RBC 3.73 L, Hgb 11.8 L, Hct 38.2 L, MCV 102.4 H, MCH 31.6, MCHC 30.9 L, RDW Std Deviation 51.7 H, RDW Coeff of Joseluis 13.6, Plt Count 142 L, MPV 12.9 H, Immature Gran % (Auto) 2.600 H, Neut % (Auto) 76.9 H, Lymph % (Auto) 6.7 L, [place] % (Auto) 13.0 H, Eos % (Auto) 0.1, Baso % (Auto) 0.7, Absolute Neuts (auto) 8.3 H, Absolute Lymphs (auto) 0.72 L, Nucleated RBC % 0 07/07/22 05:50: Sodium 138, Potassium 4.3, Chloride 99, Carbon Dioxide 33.0 H, Anion Gap 6, BUN 35 H, Creatinine 0.90, Estim Creat Clear Calc 99.40, Est GFR (MDRD) Af Amer 112, Est GFR (MDRD) Non-Af 92, BUN/Creatinine Ratio 38.9 H, Glucose 146 H, Calcium 8.9 Micro: Microbiology 07/04/22 15:45 Blood Culture (Wb) - No Site/Description Given Blood Culture - Preliminary No growth in 48 hours. 07/04/22 15:27 Blood Culture (Wb) - Right Hand Blood Culture - Preliminary No growth in 48 hours. 07/04/22 15:15 Mucosa - Nose Respiratory Panel (PCR) - Final 07/04/22 15:27 Urine, Random Legionella Antigen - Final 07/04/22 15:27 Urine, Random Streptococcus pneumoniae Antigen (M - Final 07/04/22 15:15 Nasal Secretion SARS-CoV-2 & FLU Antigen (Rapid) - Final Physical Exam Narrative General: Alert, oriented HEENT: Atraumatic, normocephalic Eyes: Anicteric, normal conjunctiva, extraocular movements grossly intact Neck: Supple Respiratory: Somewhat increased work of breathing, diminished at the bases Cardiovascular: Regular rate and rhythm GI: Soft, nontender, nondistended Extremities: No edema Musculoskeletal: Moving all extremities Neuro: No overt focal neurological deficits Skin: No rashes appreciated Psych: Cooperative Assessment & Plan Assessment/Plan (1) Acute and chronic respiratory failure with hypoxia: (2) COPD exacerbation: (3) Atrial fibrillation: (4) Aortic valve disease: (5) Pneumonia: (6) ANGEL (obstructive sleep apnea): (7) Acute and chronic respiratory failure with hypoxia: (8) Epilepsy: QUALIFIERS: Epilepsy type: unspecified Intractability: not int ractable Status epilepticus: without status epilepticus Qualified Code(s): G40.909 - Epilepsy, unspecified, not intractable, without status epilepticus PLAN: Plan #Acute on chronic hypoxic respiratory failure due to acute on chronic end-stage COPD exacerbation as well as probable CAP with underlying moderate pulmonary htn and ANGEL w/ difficulty w/ NIPPV compliance -On 5 to 6 L O2 at baseline with history of end-stage COPD. Triple inhaler therapy at baseline and does not use his home NIPPV as prescribed which likely contributed however did also have x-ray suspicious for left lower lobe infiltrate. -Titrate oxygen to maintain saturation above 90%. On IV ceftriaxone and azithromycin -Dependent on Airvo and BiPAP. Continue IV Solu-Medrol and breathing treatments, pulmonology on board. On Rocephin and azithromycin. Remains on Lasix -Troponins x3 were not elevated. -Urine for strep and Legionella negative. -Respiratory panel and COVID/flu negative -2D echo showed EF Of 50% and moderate pulmonary hypertension and mechanical aortic valve not well visualized and mildly enlarged left atrium, as well as mild global right ventricular dysfunction. #History of aortic valve disease s/p mechanical valve replacement 2012/s/p VSD repair: -Has mechanical bileaflet aortic valve prosthesis per cardiology office note 06/27/22 -On Coumadin at home but had a supratherapeutic INR so this was initially held -INR goal is documented as 2.5-3.5 likely d/t bileaflet valve but has hx of prior VTA\E and additionally afib. -Coumadin resumed yesterday -INR monitored and managed on outpatient basis by Franklyn Matson #Afib w/ RVR -Was on amio and cardizem gtt -On metoprolol 50mg BID and Cardizem and amio po added by cardiology 07/07 -Echo this admission with EF of 50% and moderate pulmonary hypertension with mi ld global right ventricular dysfunction and mechanical aortic valve not well visualized -AC w/ coumadin -Do suspect some low grade tachycardia may remain given #1 as it is likely compensatory but will need to monitor for recurrence of RVR #Seizure disorder: On antiepileptics #History of DVT: On Coumadin as above #Hyperlipidemia: On statin DVT prophylaxis: scds Charges/Coding Visit Charges Inpatient E&M: 70421 Subs Hosp L2
[2022-07-07] MEDS: oxyCODONE 5 MG Tablet PO ×2 (11:38→18:16)
--- NOTE | 2022-07-07 14:49 | CON.PCM.CA_ITS ---
Assessment & Plan Assessment/Plan (1) Atrial fibrillation: PLAN: Heart rate is presently controlled on IV Cardizem and IV amiodarone. Will be reasonable to switch him to p.o. Cardizem at 60 mg every 6 hours. About 30 minutes after the first dose of p.o. Cardizem we can start weaning off the IV Cardizem. Amiodarone can be started at a dose of 200 mg p.o. daily when IV amiodarone is discontinued after 24 hours of starting it. Patient is already on Coumadin for his prosthetic valve. He had an EF of 50% by recent echo. HPI Consult Data Date of Consult: 07/07/22 HPI Narrative Reason for Consultation: A-fib with RVR HPI Narrative: KAYLEEN AWAD, is a 56 M who presents with COPD exacerbation. He has a history of underlying aortic valve replacement, AVR/aortic homograft, status post VSD repair, superimposed upon hyperlipidemia, hypertension. Cardiology consult was requested as patient went into A-fib with RVR. He was started on Cardizem drip and then amiodarone drip and his heart rate is currently under control. Review of systems: All systems reviewed. Patient complains of fatigue and shortness of breath. All else is negative. [facility] Medical History (Updated 07/07/22 @ 14:[address] Pascual Peters MD) Acute on chronic respiratory failure with hypoxia Alkaline phosphatase elevation Aortic valve disease Bilateral leg edema Cholelithiasis Chronic hypoxemic respiratory failure Chronic respiratory failure COPD (chronic obstructive pulmonary disease) COVID-19 virus infection Debility, unspecified DVT (deep venous thrombosis) Eczema of hand Essential hypertension GERD (gastroesophageal reflux disease) History of Coumadin therapy Hyperlipidemia Hypersomnia Hypersomnia Hypoxemic respiratory failure, chronic Iatrogenic pneumothorax Learning disability Mixed obstructive and restrictive ventilatory defect Mood disorder Obesity Seizure disorder Shortness of breath Stage 4 very severe COPD by GOLD classification Subtherapeutic international normalized ratio (INR) Subtherapeutic phenytoin level varicose veins Ventricular septal defect Home Medications aspirin 81 mg tablet,delayed release (Adult Aspirin Regimen) 81 mg PO DAILY [facility] 03/17/17 [History Last Taken 10/01/21] multivitamin (Multiple Vitamins tablet) 1 tab PO QDAY supplement 03/17/17 [History Last Taken 10/02/21] aluminum-mag hydroxide-simethicone 200 mg-200 mg-20 mg/5 mL oral susp 30 ml PO Q4H PRN Heartburn 04/18/20 [History Last Taken 10/01/21] ascorbate calcium (vitamin C) 500 mg tablet 500 mg PO DAILY supplement 04/18/20 [History Last Taken 10/02/21] melatonin 3 mg capsule 5 mg PO HS PRN Insomnia 04/18/20 [History Last Taken 10/01/21] metoprolol tartrate 25 mg tablet 37.5 mg PO BID heart rate 12/27/20 [History Last Taken 10/02/21] acetaminophen 325 mg tablet (Tylenol) 650 mg PO Q4H PRN PRN Fever, pain 1-12/09 #0 tabs 04/03/21 [Rx Last Taken 10/01/21] albuterol sulfate 90 mcg/actuation aerosol inhaler 2 puff inhalation Q4H PRN shortness of breath or wheezing #8.5 grams 09/19/21 [Rx Last Taken 10/02/21] ferrous sulfate 325 mg (65 mg iron) tablet (FeroSul) 325 mg PO DAILY@1200 #0 tabs 10/04/21 [Rx Last Taken Unknown] ipratropium 0.5 mg-albuterol 3 mg (2.5 mg base)/3 mL nebulization soln 3 ml inhalation Q4HWA.RT PRN SOB #0 mL 10/04/21 [Rx Last Taken Unknown] sennosides 8.6 mg-docusate sodium 50 mg tablet (Stool Softener-Stimulant Laxative) 2 tab PO BID PRN PRN Constipation #0 tabs 10/04/21 [Rx Last Taken Unknown] cyanocobalamin (vitamin B-12) 1,000 mcg tablet 1,000 mcg PO DAILY 10/05/21 [History Last Taken Unknown] fluticasone fur. 200 mcg-umeclid 62.5 mcg-vilant 25 mcg inhalat.powder (Trelegy Ellipta) 1 inh inhalation DAILY 10/05/21 [History Last Taken Unknown] guaifenesin 1,200 mg tablet, extended release 12 hr (Mucus Relief ER) 600 mg PO BID 10/05/21 [History Last Taken Unknown] furosemide 40 mg tablet 40 mg PO DAILY #90 tabs 10/16/21 [Rx Last Taken Unknown] phenytoin sodium extended 100 mg capsule (Dilantin Extended) 100 mg PO TID seizures #90 caps 01/21/22 [Rx Last Taken Unknown] atorvastatin 20 mg tablet 20 mg PO DAILY 04/29/22 [History Last Taken Unknown] cetirizine 10 mg capsule (Zyrtec) 10 mg PO DAILY PRN 04/29/22 [History Last Taken Unknown] divalproex 125 mg tablet,delayed release (Depakote) 250 mg PO TID 04/29/22 [History Last Taken Unknown] cimetidine 200 mg tablet 400 mg PO QACHS 06/27/22 [History Last Taken Unknown] fluoxetine 40 mg capsule (Prozac) 50 mg PO DAILY 06/27/22 [History Last Taken Unknown] folic acid 1 mg tablet 1 mg PO DAILY 06/27/22 [History Last Taken Unknown] cholecalciferol (vitamin D3) 50 mcg (2,000 unit) capsule (Vitamin D3) 2,000 mcg PO DAILY Check with primary doctor 07/04/22 [History Last Taken Unknown] warfarin 4 mg tablet 4 mg PO QMWF blood thinner 07/06/22 [History Last Taken Unknown] warfarin 5 mg tablet 5 mg PO SUTUTHSA blood thinner 07/06/22 [History Last Taken Unknown] Allergy/AdvReac Type Severity Reaction Status Date / Time No Known Allergies Allergy Verified 06/27/22 14:44 Family History Father Lung cancer Osteoarthritis Mother Diabetes Thyroid disorder High cholesterol Breast cancer Grandmother Heart disease CVA (cerebral vascular accident) Surgical History H/O aortic root repair H/O aortic valve replacement H/O hernia repair History of mechanical aortic valve replacement (~12/06/12) S/P VSD repair Social History household members: none current occupational status: disabled Smoking Status: Former smoker quit date: 03/02/12 pack-years: 40 Tobacco: How many years used: 35 second hand exposure: No alcohol intake: never substance use type: does not use Physical Exam Const alert and oriented x3 HEENT normocephalic Eyes no scleral icterus Resp clear to auscultation bilaterally Cardio Cardio Narrative: Irregular rhythm. Prosthetic valve click heard. Extremity no pedal edema Psych mental status grossly normal Risk Stratification Risk Stratification Applicable: No Charges/Coding Visit Charges Inpatient E&M: 88968 Init Hosp L2 Objective Data Vital Signs: Vital Signs Temp Pulse Resp BP Pulse Ox O2 Del Method O2 Flow Rate 98.1 F 78 19 H 125/71 H 94 Airvo 50 07/07/22 14:00 07/07/22 14:00 07/07/22 14:00 07/07/22 14:00 07/07/22 14:00 07/07/22 14:00 07/07/22 14:00 FiO2 50 07/07/22 14:00 Oxygen Flow Rate (L/min) 50 Oxygen Delivery Method Airvo Weight: 180 lb 15.992 oz Body Mass Index (BMI) 24.5 Intake & Output: Intake and Output for Last 24 Hours 07/05/22 07/06/22 07/07/22 23:59 23:59 23:59 Intake Total 1385 / 1385 1644.50 / 1664.50 736.13 / 736.13 Output Total 1300 / 1300 1350 / 1850 1250 / 1250 Balance 85 / 85 294.50 / -185.50 -513.87 / -513.87 Lab / Micro Data Result Diagrams: 07/07/22 05:50 07/07/22 05:50 Labs: Laboratory Results - last 24 hr 07/07/22 05:50: PT 22.9 H, INR 2.0 07/07/22 05:50: WBC 10.8, RBC 3.73 L, Hgb 11.8 L, Hct 38.2 L, MCV 102.4 H, MCH 31.6, MCHC 30.9 L, RDW Std Deviation 51.7 H, RDW Coeff of Joseluis 13.6, Plt Count 142 L, MPV 12.9 H, Immature Gran % (Auto) 2.600 H, Neut % (Auto) 76.9 H, Lymph % (Auto) 6.7 L, [place] % (Auto) 13.0 H, Eos % (Auto) 0.1, Baso % (Auto) 0.7, Absolute Neuts (auto) 8.3 H, Absolute Lymphs (auto) 0.72 L, Nucleated RBC % 0 07/07/22 05:50: Sodium 138, Potassium 4.3, Chloride 99, Carbon Dioxide 33.0 H, Anion Gap 6, BUN 35 H, Creatinine 0.90, Estim Creat Clear Calc 99.40, Est GFR (MDRD) Af Amer 112, Est GFR (MDRD) Non-Af 92, BUN/Creatinine Ratio 38.9 H, Glucose 146 H, Calcium 8.9 Micro: Microbiology 07/04/22 15:45 Blood Culture (Wb) - No Site/Description Given Blood Culture - Preliminary No growth in 48 hours. 07/04/22 15:27 Blood Culture (Wb) - Right Hand Blood Culture - Preliminary No growth in 48 hours. Cardiology Labs/Tests 07/07/22 05:50: PT 22.9 H, INR 2.0 07/07/22 05:50: WBC 10.8, RBC 3.73 L, Hgb 11.8 L, Hct 38.2 L, MCV 102.4 H, MCH 31.6, MCHC 30.9 L, Plt Count 142 L, MPV 12.9 H, Immature Gran % (Auto) 2.600 H, Neut % (Auto) 76.9 H, Lymph % (Auto) 6.7 L, [place] % (Auto) 13.0 H, Eos % (Auto) 0.1, Baso % (Auto) 0.7, Absolute Neuts (auto) 8.3 H, Nucleated RBC % 0 07/07/22 05:50: Sodium 138, Potassium 4.3, Chloride 99, Carbon Dioxide 33.0 H, Anion Gap 6, BUN 35 H, Creatinine 0.90, Est GFR (MDRD) Af Amer 112, Est GFR (MDRD) Non-Af 92, BUN/Creatinine Ratio 38.9 H, Glucose 146 H, Calcium 8.9 Rhythm: EKG: ECHO: Stress Test: Cardiac Cath: PCI: CT Surgery: Holter monitor: EPS: PPM: CXR: Chest CT Scan:
[2022-07-07] MEDS: dilTIAZem 60 MG Tablet PO ×2 (17:20→23:40)
[2022-07-07] MEDS: Amiodarone 200 MG Tablet PO (17:20)
[2022-07-07] MEDS: Atorvastatin Calcium 20 MG Tablet PO (21:23)
[2022-07-08] VITALS (17 sets, daily range): BP systolic 112–130; BP diastolic 64–78; PULSE 72–110; RESP 14–28; TEMP 36.7–37.1; O2SAT 94–98; BMI 24.7
[2022-07-08] MEDS: Ipratropium 0.5 MG/2.5 ML SOLUTION INHALATION ×7 (00:15→23:46)
[2022-07-08] MEDS: guaiFENesin Dm 10 ML UDC PO ×2 (00:34→06:42)
[2022-07-08] MEDS: Benzonatate 100 MG Capsule PO ×4 (02:57→21:43)
[2022-07-08] MEDS: Acetaminophen 325 MG Tablet 650 MG PO (02:57)
[2022-07-08] MEDS: Phenytoin Na 100 MG Capsule PO ×3 (05:05→21:43)
[2022-07-08] MEDS: Divalproex Sodium 125 MG Tablet 250 MG PO ×3 (05:05→21:43)
[2022-07-08] MEDS: Methylprednisolone Sod Succ 40 MG/ML VIAL IV ×3 (05:06→21:43)
[2022-07-08] MEDS: dilTIAZem 60 MG Tablet PO ×3 (05:06→17:19)
[2022-07-08] MEDS: 0.9% Saline Lock 10 ML Syringe IV ×2 (05:06→17:20)
[2022-07-08 06:32] LABS: Hemoglobin 11.9 g/dL (13.0-16.5); Mean Corp Hgb Conc 29.8 g/dL (32-36); Mean Corpuscular Hgb 31.5 pg (27.0-32.0); Mean Corpuscular Volume 105.8 fL (80-94); Mean Platelet Vol. 11.4 fl (6.2-12.0); POSITIVE COUNT YES; POSITIVE MORPHOLOGY YES; Platelet Count 190 K/mm3 (150-450); RBC Distribution Width CV 13.7 % (11.6-14.6); RBC Distribution Width SD 53.2 fl (35.1-43.9); Red Blood Count 3.78 M/mm3 (4.6-6.2)
[2022-07-08 06:37] LABS: Differential Indicated MANUAL DIFF
[2022-07-08 06:57] LABS: Anion Gap 2 (5-15); BUN 37 mg/dL (7-18); BUN/Creat Ratio 38.3 RATIO (10-20); Calcium,Total 9.1 mg/dL (8.5-10.1); Chloride 98 mmol/L (98-107); Creatinine, Serum 0.97 mg/dL (0.70-1.30); EST Glomerular Filtration Rate 85 mL/min (>60); Est Glom Filt Rate - Afr Amer 103 mL/min (>60); Estimated Creatinine Clearance 92.22 ml/min; Glucose 176 mg/dL (74-106); International Normalized Ratio 2.8; Potassium 4.8 mmol/L (3.5-5.1); Prothrombin Time (Protime)PT. 29.9 SECONDS (11.7-14.9); Sodium Level 139 mmol/L (136-145)
[2022-07-08 07:13] LABS: Metamyelocyte 1 % (0-1); Myelocyte 3 % (0-0); Neutrophil-Band 5 % (0-5); Neutrophil-Segmented 75 % (47-70); Promyelocyte 1 % (0-0); Total Cells Counted 100 (MANUAL DIFF)
[2022-07-08 07:14] LABS: Anisocytosis 1+; Lymphocyte 5 % (19-41); Macrocytosis RARE; Microcytosis RARE; Monocyte 10 % (0-10); Platelet Estimate ADEQUATE (ADEQ)
[2022-07-08 07:15] LABS: Absolute Lymphocyte Count 0.55 X10^3/uL (0.83-4.51); Absolute Neutrophil Count 8.8 X10^3/uL (2.0-7.7); Lymphocyte # 0.55 X10^3/ul (0.83-4.51); Neutrophil # 8.82 X10^3/uL (2.7-7.7)
--- NOTE | 2022-07-08 07:56 | PN.CC_ITS ---
Assessment & Plan Assessment/Plan (1) Acute and chronic respiratory failure with hypoxia: PLAN: Plan RECOMMENDATIONS: 1. Continue scheduled Atrovent aerosols given tachycardia. 2. Continue empiric antimicrobials to complete 5 days. 3. Continue IV steroids. Increase diuretics 4. Wean supplemental oxygen to maintain saturations at or above 90%. 5. Obtain INR daily. Consider holding Coumadin for 24 hours IMPRESSIONS: 1. Acute on chronic combined respiratory failure, likely secondary to COPD exacerbation The patient has a known history of end-stage COPD and chronic hypoxemic respiratory failure with a baseline 5 to 6 L/min oxygen requirement. He is also prescribed a triple therapy inhaler regimen at his baseline. Patient does not use his home noninvasive ventilator as prescribed. The patient presented with worsening shortness of breath and radiographic evidence of a left lower lobe infiltrate. He remains on appropriate therapy with antibiotics, bronchodilators and IV steroids. We will keep steroids at the current level until patient improves. Failure to comply with BiPAP therapy does increase risk of poor outcome. Continue to wean supplemental oxygen to maintain oxygen saturations at or above 90%. Encourage incentive spirometer use and mobilize patient as tolerated. We will attempt some additional diuresis despite patient not appearing significantly volume overloaded. Significant concern patient will develop respiratory muscle fatigue with continued tachypnea 2. History of aortic valve replacement/status post VSD repair/coagulopathy Continue daily Lasix regimen for now. The patient did present with a supratherapeutic INR. Monitor Coumadin closely given concomitant antibiotics. Recommend checking INR daily. 3. Unspecified seizure disorder/hypertension/hyperlipidemia Complicates care, management, recovery and prognosis. Continue home medications as indicated. This note was generated with [employer] dictation software. It may contain incorrect words, spelling, and punctuation that were not noted in checking the note before signing. Subjective Subjective Patient overall feels subjectively unchanged compared to yesterday. Patient does report that he attempted the BiPAP, but was only able to tolerate this for minutes. Patient denies any respiratory muscle fatigue, but does continue to have a cough. Patient is requesting to continue to fight. Objective Data Objective Data Vital Signs: Vital Signs Temp Pulse Resp BP Pulse Ox O2 Del Method O2 Flow Rate 37.0 C 93 24 H 112/73 94 Airvo 50 07/08/22 03:05 07/08/22 05:33 07/08/22 05:33 07/08/22 03:05 07/08/22 05:33 07/08/22 03:05 07/08/22 03:05 FiO2 50 07/08/22 05:33 Oxygen Flow Rate (L/min) 50 Oxygen Delivery Method Airvo Weight: 83 kg Body Mass Index (BMI) 24.7 Intake & Output: Intake and Output for Last 24 Hours 07/06/22 07/07/22 07/08/22 23:59 23:59 23:59 Intake Total 1644.50 / 1664.50 1248.35 / 1248.35 Output Total 1350 / 1850 1700 / 1700 400 / 400 Balance 294.50 / -185.50 -451.65 / -451.65 -400 / -400 Lab / Micro Data Attestation: I reviewed the patient's lab results. Result Diagrams: 07/08/22 05:55 07/08/22 05:55 Labs: Laboratory Results - last 24 hr 07/07/22 05:50: PT 22.9 H, INR 2.0 07/08/22 05:55: WBC 11.0, RBC 3.78 L, Hgb 11.9 L, Hct 40.0, MCV 105.8 H, MCH 31.5, MCHC 29.8 L, RDW Std Deviation 53.2 H, RDW Coeff of Joseluis 13.7, Plt Count 190, MPV 11.4, Neut % (Auto) Not Reportable, Absolute Neuts (auto) 8.8 H, Absolute Lymphs (auto) 0.55 L, Total Counted 100, Neutrophils % (Manual) 75 H, Band Neutrophils % 5, Lymphocytes % (Manual) 5 L, Monocytes % (Manual) 10, Metamyelocytes % 1, Myelocytes % 3 H, Promyelocytes % 1 H, Diff Path Review May , Platelet Estimate ADEQUATE, Anisocytosis 1+, Microcytosis RARE, Macrocytosis RARE 07/08/22 05:55: Sodium 139, Potassium 4.8, Chloride 98, Carbon Dioxide 39.0 H, Anion Gap 2 L, BUN 37 H, Creatinine 0.97, Estim Creat Clear Calc 92.22, Est GFR (MDRD) Af Amer 103, Est GFR (MDRD) Non-Af 85, BUN/Creatinine Ratio 38.3 H, Glucose 176 H, Calcium 9.1 07/08/22 05:55: PT 29.9 H, INR 2.8 Micro: Microbiology 07/04/22 15:45 Blood Culture (Wb) - No Site/Description Given Blood Culture - Preliminary No growth in 48 hours. 07/04/22 15:27 Blood Culture (Wb) - Right Hand Blood Culture - Preliminary No growth in 48 hours. 07/04/22 15:15 Mucosa - Nose Respiratory Panel (PCR) - Final 07/04/22 15:27 Urine, Random Legionella Antigen - Final 07/04/22 15:27 Urine, Random Streptococcus pneumoniae Antigen (M - Final 07/04/22 15:15 Nasal Secretion SARS-CoV-2 & FLU Antigen (Rapid) - Final Physical Exam Const alert and no apparent distress Constitutional Narrative: Appears older than his stated age. Some conversational dyspnea noted General Appearance: cooperative, in distress Positive for mild and respiratory and ill appearing HEENT normocephalic and head/scalp atraumatic Eyes PERRL, EOMs intact bilaterally and conjunctivae normal Neck supple General: trachea midline Chest inspection of chest normal Chest Narrative: No paradoxical chest movement Resp Effort and Inspection: tachypneic Auscultation: rales and diminished lung sounds; Negative for rhonchi or wheezes Cardio S1 normal heart sound and S2 normal heart sound Cardio Narrative: Mechanical heart sounds Heart Sounds: murmur GI normal to inspection, nondistended, normoactive bowel sounds Extremity no clubbing, cyanosis or edema Skin no rashes or lesions noted Neuro CN's II-XII intact bilaterally and no focal motor deficits Psych Mood & Affect: flat affect Charges/Coding Visit Charges Inpatient E&M: 66404 Subs Hosp L3
[2022-07-08] MEDS: Amiodarone 200 MG Tablet PO (09:07)
[2022-07-08] MEDS: Metoprolol Tartrate 50 MG Tablet PO ×2 (09:07→21:43)
[2022-07-08] MEDS: FLUoxetine 10 MG Capsule PO (09:08)
[2022-07-08] MEDS: Fluoxetine HCl 40 MG CAPSULE PO (09:08)
[2022-07-08] MEDS: Ensure Plus High Protein 120 ML LIQUID PO ×3 (09:08→17:19)
[2022-07-08] MEDS: Furosemide 40 MG/4 ML Vial IV ×2 (09:08→17:19)
--- NOTE | 2022-07-08 09:09 | PCM.PN.HOSP ---
Reason for Visit Reason for Visit: Diagnoses Epilepsy, unspecified, not intractable, without status epilepticus (07/04/22) Obstructive sleep apnea (adult) (pediatric) (07/04/22) Nonrheumatic aortic valve disorder, unspecified (07/04/22) Unspecified atrial fibrillation (07/04/22) Pneumonia, unspecified organism (07/04/22) Chronic obstructive pulmonary disease with (acute) exacerbation (07/04/22) Acute and chronic respiratory failure with hypoxia (07/04/22) Subjective Subjective Comply with BiPAP overnight, continues to be short of breath and have increased work of breathing and intermittent tachycardia Objective Data Objective Data Vital Signs: Vital Signs Temp Pulse Resp BP Pulse Ox O2 Del Method O2 Flow Rate 98.6 F 92 24 H 124/75 H 94 Airvo 50 07/08/22 03:05 07/08/22 09:07 07/08/22 05:33 07/08/22 09:07 07/08/22 05:33 07/08/22 03:05 07/08/22 03:05 FiO2 50 07/08/22 05:33 Oxygen Flow Rate (L/min) 50 Oxygen Delivery Method Airvo Weight: 83 kg Body Mass Index (BMI) 24.7 Intake & Output: Intake and Output for Last 24 Hours 07/06/22 07/07/22 07/08/22 23:59 23:59 23:59 Intake Total 1644.50 / 1664.50 1248.35 / 1248.35 Output Total 1350 / 1850 1700 / 1700 400 / 400 Balance 294.50 / -185.50 -451.65 / -451.65 -400 / -400 Lab / Micro Data Result Diagrams: 07/08/22 05:55 07/08/22 05:55 Labs: Laboratory Results - last 24 hr 07/08/22 05:55: WBC 11.0, RBC 3.78 L, Hgb 11.9 L, Hct 40.0, MCV 105.8 H, MCH 31.5, MCHC 29.8 L, RDW Std Deviation 53.2 H, RDW Coeff of Joseluis 13.7, Plt Count 190, MPV 11.4, Neut % (Auto) Not Reportable, Absolute Neuts (auto) 8.8 H, Absolute Lymphs (auto) 0.55 L, Total Counted 100, Neutrophils % (Manual) 75 H, Band Neutrophils % 5, Lymphocytes % (Manual) 5 L, Monocytes % (Manual) 10, Metamyelocytes % 1, Myelocytes % 3 H, Promyelocytes % 1 H, Diff Path Review May , Platelet Estimate ADEQUATE, Anisocytosis 1+, Microcytosis RARE, Macrocytosis RARE 07/08/22 05:55: Sodium 139, Potassium 4.8, Chloride 98, Carbon Dioxide 39.0 H, Anion Gap 2 L, BUN 37 H, Creatinine 0.97, Estim Creat Clear Calc 92.22, Est GFR (MDRD) Af Amer 103, Est GFR (MDRD) Non-Af 85, BUN/Creatinine Ratio 38.3 H, Glucose 176 H, Calcium 9.1 07/08/22 05:55: PT 29.9 H, INR 2.8 Micro: Microbiology 07/04/22 15:45 Blood Culture (Wb) - No Site/Description Given Blood Culture - Preliminary No growth in 48 hours. 07/04/22 15:27 Blood Culture (Wb) - Right Hand Blood Culture - Preliminary No growth in 48 hours. 07/04/22 15:15 Mucosa - Nose Respiratory Panel (PCR) - Final 07/04/22 15:27 Urine, Random Legionella Antigen - Final 07/04/22 15:27 Urine, Random Streptococcus pneumoniae Antigen (M - Final 07/04/22 15:15 Nasal Secretion SARS-CoV-2 & FLU Antigen (Rapid) - Final Physical Exam Narrative General: Alert, oriented HEENT: Atraumatic, normocephalic Eyes: Anicteric, normal conjunctiva, extraocular movements grossly intact Neck: Supple Respiratory: Increased work of breathing, somewhat coarse in the bases Cardiovascular: Mildly tachycardic GI: Soft, nontender, nondistended Extremities: No edema Musculoskeletal: Moving all extremities Neuro: No overt focal neurological deficits Skin: No rashes appreciated Psych: Cooperative Assessment & Plan Assessment/Plan (1) Acute and chronic respiratory failure with hypoxia: (2) COPD exacerbation: (3) Atrial fibrillation: (4) Aortic valve disease: (5) Pneumonia: (6) ANGEL (obstructive sleep apnea): (7) Acute and chronic respiratory failure with hypoxia: (8) Epilepsy: QUALIFIERS: Epilepsy type: unspecified Intractability: not intractable Status epilepticus: without status epilepticus Qualified Code(s): G40.909 - Epilepsy, unspecified, not intractable, without status epilepticus PLAN: Plan #Acute on chronic hypoxic respiratory failure due to acute on chronic end-stage COPD exacerbation as well as probable CAP with underlying moderate pulmonary htn and ANGEL w/ difficulty w/ NIPPV compliance -On 5 to 6 L O2 at baseline with history of end-stage COPD. Triple inhaler therapy at baseline and does not use his home NIPPV as prescribed which likely contributed however did also have x-ray suspicious for left lower lobe infiltrate. -Titrate oxygen to maintain saturation above 90%. On IV ceftriaxone and azithromycin -Dependent on Airvo and BiPAP. Continue IV Solu-Medrol and breathing treatments, pulmonology on board. On Rocephin and azithromycin. Remains on Lasix -Troponins x3 were not elevated. -Urine for strep and Legionella negative. -Respiratory panel and COVID/flu negative -2D echo showed EF Of 50% and moderate pulmonary hypertension and mechanical aortic valve not well visualized and mildly enlarged left atrium, as well as mild global right ventricular dysfunction. -07/08: Remains on IV steroids and ipratropium nebs, albuterol held due to his tachycardia. Lasix dose increased. Prognosis seems poor especially given noncompliance with NIPPV #History of aortic valve disease s/p mechanical valve replacement 2012/s/p VSD repair: -Has mechanical bileaflet aortic valve prosthesis per cardiology office note 06/27/22 -On Coumadin at home but had a supratherapeutic INR so this was initially held -INR goal is documented as 2.5-3.5 likely d/t bileaflet valve but has hx of prior VTA\E and additionally afib. -Coumadin resumed yesterday -INR monitored and managed on outpatient basis by Franklyn Matson -07/08: Discussed w/ pulm. Will hold for 24 hours. Starting tomorrow pending AM INR- appears previous weekly dose of Coumadin was 32, given the RE-LY trial algorithm will decrease by 15 %/week which roughly equilibrates to 4 mg daily however given jump from 2-2.8 in 1 day will resume Coumadin at 3 and can titrate further as indicated. Continue to monitor INR daily #Afib w/ RVR -Was on amio and cardizem gtt -On metoprolol 50mg BID and Cardizem and amio po added by cardiology 07/07 -Echo this admission with EF of 50% and moderate pulmonary hypertension with mild global right ventricular dysfunction and mechanical aortic valve not well visualized -AC w/ coumadin -Do suspect some low grade tachycardia may remain given #1 as it is likely compensatory but will need to monitor for recurrence of RVR -07/08: Cardiology following, on Cardizem and amnio as well as metoprolol #Seizure disorder: On antiepileptics #History of DVT: On Coumadin as above #Hyperlipidemia: On statin DVT prophylaxis: scds Charges/Coding Visit Charges Inpatient E&M: 40223 Subs Hosp L2
[2022-07-08] MEDS: oxyCODONE 5 MG Tablet PO (10:54)
[2022-07-08] MEDS: Atorvastatin Calcium 20 MG Tablet PO (21:43)
[2022-07-09] VITALS (14 sets, daily range): BP systolic 100–117; BP diastolic 66–79; PULSE 70–81; RESP 16–28; TEMP 36.3–37.2; O2SAT 95–97; BMI 24.7
[2022-07-09] MEDS: dilTIAZem 60 MG Tablet PO ×4 (00:05→17:40)
[2022-07-09] MEDS: Ipratropium 0.5 MG/2.5 ML SOLUTION INHALATION ×6 (03:45→22:55)
[2022-07-09 04:49] LABS: Hematocrit 38.4 % (40-54); Hemoglobin 11.4 g/dL (13.0-16.5); Mean Corp Hgb Conc 29.7 g/dL (32-36); Mean Corpuscular Hgb 31.6 pg (27.0-32.0); Mean Corpuscular Volume 106.4 fL (80-94); Mean Platelet Vol. 10.8 fl (6.2-12.0); POSITIVE COUNT YES; POSITIVE MORPHOLOGY YES; Platelet Count 189 K/mm3 (150-450); RBC Distribution Width CV 13.6 % (11.6-14.6); RBC Distribution Width SD 53.6 fl (35.1-43.9); Red Blood Count 3.61 M/mm3 (4.6-6.2); White Blood Count 11.9 K/mm3 (4.4-11.0)
[2022-07-09 04:53] LABS: Differential Indicated MANUAL DIFF
[2022-07-09 04:59] LABS: International Normalized Ratio 3.6; Prothrombin Time (Protime)PT. 36.5 SECONDS (11.7-14.9)
[2022-07-09 05:15] LABS: Total Cells Counted 100 (MANUAL DIFF)
[2022-07-09 05:16] LABS: Anisocytosis 1+; Lymphocyte 6 % (19-41); Monocyte 8 % (0-10); Myelocyte 4 % (0-0); Neutrophil-Band 6 % (0-5); Neutrophil-Segmented 76 % (47-70); Platelet Estimate ADEQUATE (ADEQ)
[2022-07-09 05:17] LABS: Absolute Lymphocyte Count 0.71 X10^3/uL (0.83-4.51); Absolute Neutrophil Count 9.7 X10^3/uL (2.0-7.7); Lymphocyte # 0.71 X10^3/ul (0.83-4.51); Macrocytosis RARE; Microcytosis RARE; Neutrophil # 9.73 X10^3/uL (2.7-7.7)
[2022-07-09 05:21] LABS: Anion Gap 2 (5-15); BUN 46 mg/dL (7-18); BUN/Creat Ratio 45.5 RATIO (10-20); Calcium,Total 8.9 mg/dL (8.5-10.1); Chloride 96 mmol/L (98-107); Creatinine, Serum 1.01 mg/dL (0.70-1.30); EST Glomerular Filtration Rate 81 mL/min (>60); Est Glom Filt Rate - Afr Amer 98 mL/min (>60); Estimated Creatinine Clearance 88.57 ml/min; Glucose 200 mg/dL (74-106); Potassium 4.7 mmol/L (3.5-5.1); Sodium Level 140 mmol/L (136-145)
[2022-07-09] MEDS: Phenytoin Na 100 MG Capsule PO ×3 (05:44→21:01)
[2022-07-09] MEDS: Methylprednisolone Sod Succ 40 MG/ML VIAL IV ×3 (05:45→21:04)
[2022-07-09] MEDS: Divalproex Sodium 125 MG Tablet 250 MG PO ×3 (05:45→21:01)
[2022-07-09] MEDS: Ensure Plus High Protein 120 ML LIQUID PO ×3 (08:15→16:15)
[2022-07-09] MEDS: guaiFENesin Dm 10 ML UDC PO ×2 (08:15→16:15)
--- NOTE | 2022-07-09 08:25 | PCM.PN.INT ---
Assessment & Plan Assessment/Plan (1) Acute and chronic respiratory failure with hypoxia: PLAN: Plan RECOMMENDATIONS: 1. Continue scheduled Atrovent aerosols given tachycardia. 2. Continue empiric antimicrobials to complete 5/7 days. 3. Continue IV steroids. Continue increased diuretics for now 4. Wean supplemental oxygen to maintain saturations at or above 90%. 5. Obtain INR daily. Consider holding Coumadin for additional 24 hours IMPRESSIONS: 1. Acute on chronic combined respiratory failure, likely secondary to COPD exacerbation The patient has a known history of end-stage COPD and chronic hypoxemic respiratory failure with a baseline 5 to 6 L/min oxygen requirement. He is also prescribed a triple therapy inhaler regimen at his baseline. Patient does not use his home noninvasive ventilator as prescribed. The patient presented with worsening shortness of breath and radiographic evidence of a left lower lobe infiltrate. He remains on appropriate therapy with antibiotics, bronchodilators and IV steroids. We will keep steroids at the current level until patient improves. Failure to comply with BiPAP therapy does increase risk of poor outcome. Continue to wean supplemental oxygen to maintain oxygen saturations at or above 90%. Encourage incentive spirometer use and mobilize patient as tolerated. Patient continues to be very resistant to a change in goals of therapy significant concern patient will develop respiratory muscle fatigue with continued tachypnea 2. History of aortic valve replacement/status post VSD repair/coagulopathy Continue daily Lasix regimen for now. The patient did present with a supratherapeutic INR. Monitor Coumadin closely given concomitant antibiotics. Recommend checking INR daily. 3. Unspecified seizure disorder/hypertension/hyperlipidemia Complicates care, management, recovery and prognosis. Continue home medications as indicated. This note was generated with [employer] dictation software. It may contain incorrect words, spelling, and punctuation that were not noted in checking the note before signing. Subjective Subjective Patient did okay overnight. Patient has required Airvo to maintain saturations. Patient subjectively feels grossly unchanged compared to previous. Patient continues to have a cough Objective Data Objective Data Vital Signs: Vital Signs Temp Pulse Resp BP Pulse Ox O2 Del Method O2 Flow Rate 37.2 C 72 24 H 100/77 96 Airvo 50 07/09/22 02:17 07/09/22 04:01 07/09/22 04:01 07/09/22 02:17 07/09/22 04:01 07/09/22 02:17 07/09/22 02:17 FiO2 45 07/09/22 04:01 Oxygen Flow Rate (L/min) 50 Oxygen Delivery Method Airvo Weight: 82.8 kg Body Mass Index (BMI) 24.7 Intake & Output: Intake and Output for Last 24 Hours 07/07/22 07/08/22 07/09/22 23:59 23:59 23:59 Intake Total 1248.35 / 1248.35 785 / 905 120 / 120 Output Total 1700 / 1700 1300 / 1300 400 / 400 Balance -451.65 / -451.65 -515 / -395 -280 / -280 Lab / Micro Data Attestation: I reviewed the patient's lab results. Result Diagrams: 07/09/22 04:43 07/09/22 04:43 Labs: Laboratory Results - last 24 hr 07/09/22 04:43: WBC 11.9 H, RBC 3.61 L, Hgb 11.4 L, Hct 38.4 L, MCV 106.4 H, MCH 31.6, MCHC 29.7 L, RDW Std Deviation 53.6 H, RDW Coeff of Joseluis 13.6, Plt Count 189, MPV 10.8, Neut % (Auto) Not Reportable, Absolute Neuts (auto) 9.7 H, Absolute Lymphs (auto) 0.71 L, Total Counted 100, Neutrophils % (Manual) 76 H, Band Neutrophils % 6 H, Lymphocytes % (Manual) 6 L, Monocytes % (Manual) 8, Myelocytes % 4 H, Diff Path Review May , Platelet Estimate ADEQUATE, Anisocytosis 1+, Microcytosis RARE, Macrocytosis RARE 07/09/22 04:43: Sodium 140, Potassium 4.7, Chloride 96 L, Carbon Dioxide 42.0 H, Anion Gap 2 L, BUN 46 H, Creatinine 1.01, Estim Creat Clear Calc 88.57, Est GFR (MDRD) Af Amer 98, Est GFR (MDRD) Non-Af 81, BUN/Creatinine Ratio 45.5 H, Glucose 200 H, Calcium 8.9 07/09/22 04:43: PT 36.5 H, INR 3.6 Micro: Microbiology 07/04/22 15:45 Blood Culture (Wb) - No Site/Description Given Blood Culture - Preliminary No growth in 48 hours. 07/04/22 15:27 Blood Culture (Wb) - Right Hand Blood Culture - Preliminary No growth in 48 hours. 07/04/22 15:15 Mucosa - Nose Respiratory Panel (PCR) - Final 07/04/22 15:27 Urine, Random Legionella Antigen - Final 07/04/22 15:27 Urine, Random Streptococcus pneumoniae Antigen (M - Final 07/04/22 15:15 Nasal Secretion SARS-CoV-2 & FLU Antigen (Rapid) - Final Physical Exam Const alert and no apparent distress Constitutional Narrative: Appears older than his stated age. Some conversational dyspnea noted General Appearance: cooperative and in distress Positive for mild and respiratory HEENT normocephalic and head/scalp atraumatic Eyes PERRL, EOMs intact bilaterally and conjunctivae normal Neck supple General: trachea midline Chest inspection of chest normal Chest Narrative: No paradoxical chest movement Resp Effort and Inspection: tachypneic Auscultation: rales and diminished lung sounds; Negative for rhonchi or wheezes Cardio S1 normal heart sound and S2 normal heart sound Cardio Narrative: Mechanical heart sounds Heart Sounds: murmur GI normal to inspection, nondistended, normoactive bowel sounds Extremity no clubbing, cyanosis or edema Skin no rashes or lesions noted Neuro CN's II-XII intact bilaterally and no focal motor deficits Psych Mood & Affect: flat affect Charges/Coding Visit Charges Inpatient E&M: 68323 Subs Hosp L3
[2022-07-09] MEDS: FLUoxetine 10 MG Capsule PO (08:54)
[2022-07-09] MEDS: Fluoxetine HCl 40 MG CAPSULE PO (08:54)
[2022-07-09] MEDS: Furosemide 40 MG/4 ML Vial IV ×2 (08:54→17:39)
[2022-07-09] MEDS: Metoprolol Tartrate 50 MG Tablet PO ×2 (08:54→21:02)
[2022-07-09] MEDS: Amiodarone 200 MG Tablet PO (08:54)
--- NOTE | 2022-07-09 09:25 | PCM.PN.HOSP ---
Reason for Visit Reason for Visit: Diagnoses Epilepsy, unspecified, not intractable, without status epilepticus (07/04/22) Obstructive sleep apnea (adult) (pediatric) (07/04/22) Nonrheumatic aortic valve disorder, unspecified (07/04/22) Unspecified atrial fibrillation (07/04/22) Pneumonia, unspecified organism (07/04/22) Chronic obstructive pulmonary disease with (acute) exacerbation (07/04/22) Acute and chronic respiratory failure with hypoxia (07/04/22) Subjective Subjective Continues to not tolerate BiPAP. Was tired this a.m., remains on Airvo Objective Data Objective Data Vital Signs: Vital Signs Temp Pulse Resp BP Pulse Ox O2 Del Method O2 Flow Rate 98.4 F 72 16 117/66 96 Airvo 50 07/09/22 09:00 07/09/22 09:00 07/09/22 09:00 07/09/22 09:00 07/09/22 09:00 07/09/22 09:00 07/09/22 09:00 FiO2 45 07/09/22 09:00 Oxygen Flow Rate (L/min) 50 Oxygen Delivery Method Airvo Weight: 82.8 kg Body Mass Index (BMI) 24.7 Intake & Output: Intake and Output for Last 24 Hours 07/07/22 07/08/22 07/09/22 23:59 23:59 23:59 Intake Total 1248.35 / 1248.35 785 / 905 120 / 120 Output Total 1700 / 1700 1300 / 1300 400 / 400 Balance -451.65 / -451.65 -515 / -395 -280 / -280 Lab / Micro Data Result Diagrams: 07/09/22 04:43 07/09/22 04:43 Labs: Laboratory Results - last 24 hr 07/09/22 04:43: WBC 11.9 H, RBC 3.61 L, Hgb 11.4 L, Hct 38.4 L, MCV 106.4 H, MCH 31.6, MCHC 29.7 L, RDW Std Deviation 53.6 H, RDW Coeff of Joseluis 13.6, Plt Count 189, MPV 10.8, Neut % (Auto) Not Reportable, Absolute Neuts (auto) 9.7 H, Absolute Lymphs (auto) 0.71 L, Total Counted 100, Neutrophils % (Manual) 76 H, Band Neutrophils % 6 H, Lymphocytes % (Manual) 6 L, Monocytes % (Manual) 8, Myelocytes % 4 H, Diff Path Review May foll, Platelet Estimate ADEQUATE, Anisocytosis 1+, Microcytosis RARE, Macrocytosis RARE 07/09/22 04:43: Sodium 140, Potassium 4.7, Chloride 96 L, Carbon Dioxide 42.0 H, Anion Gap 2 L, BUN 46 H, Creatinine 1.01, Estim Creat Clear Calc 88.57, Est GFR (MDRD) Af Amer 98, Est GFR (MDRD) Non-Af 81, BUN/Creatinine Ratio 45.5 H, Glucose 200 H, Calcium 8.9 07/09/22 04:43: PT 36.5 H, INR 3.6 Micro: Microbiology 07/04/22 15:45 Blood Culture (Wb) - No Site/Description Given Blood Culture - Preliminary No growth in 48 hours. 07/04/22 15:27 Blood Culture (Wb) - Right Hand Blood Culture - Preliminary No growth in 48 hours. 07/04/22 15:15 Mucosa - Nose Respiratory Panel (PCR) - Final 07/04/22 15:27 Urine, Random Legionella Antigen - Final 07/04/22 15:27 Urine, Random Streptococcus pneumoniae Antigen (M - Final 07/04/22 15:15 Nasal Secretion SARS-CoV-2 & FLU Antigen (Rapid) - Final Physical Exam Narrative General: Alert, oriented HEENT: Atraumatic, normocephalic Eyes: Anicteric, normal conjunctiva, extraocular movements grossly intact Neck: Supple Respiratory: Increased work of breathing, some wheezing right greater than left Cardiovascular: Mildly tachycardic GI: Soft, nontender, nondistended Extremities: No edema Musculoskeletal: Moving all extremities Neuro: No overt focal neurological deficits Skin: No rashes appreciated Psych: Cooperative Assessment & Plan Assessment/Plan (1) Acute and chronic respiratory failure with hypoxia: (2) COPD exacerbation: (3) Atrial fibrillation: (4) Aortic valve disease: (5) Pneumonia: (6) ANGEL (obstructive sleep apnea): (7) Acute and chronic respiratory failure with hypoxia: (8) Epilepsy: QUALIFIERS: Epilepsy type: unspecified Intractability: not intractable Status epilepticus: without status epilepticus Qualified Code(s): G40.909 - Epilepsy, unspecified, not intractable, without status epilepticus PLAN: Plan #Acute on chronic hypoxic respiratory failure due to acute on chronic end-stage COPD exacerbation as well as probable CAP with underlying moderate pulmonary htn and ANGEL w/ difficulty w/ NIPPV compliance -On 5 to 6 L O2 at baseline with history of end-stage COPD. Triple inhaler therapy at baseline and does not use his home NIPPV as prescribed which likely contributed however did also have x-ray suspicious for left lower lobe infiltrate. -Titrate oxygen to maintain saturation above 90%. On IV ceftriaxone and azithromycin -Dependent on Airvo and BiPAP. Continue IV Solu-Medrol and breathing treatments, pulmonology on board. On Rocephin and azithromycin. Remains on Lasix -Troponins x3 were not elevated. -Urine for strep and Legionella negative. -Respiratory panel and COVID/flu negative -2D echo showed EF Of 50% and moderate pulmonary hypertension and mechanical aortic valve not well visualized and mildly enlarged left atrium, as well as mild global right ventricular dysfunction. -07/08: Remains on IV steroids and ipratropium nebs, albuterol held due to his tachycardia. Lasix dose increased. Prognosis seems poor especially given noncompliance with NIPPV -07/09: Continues to not tolerate NIPPV but has not been willing to change goals of care, bicarb slowly increasing, may be retaining some amount of CO2 given he is not using NIPPV though cannot rule out Lasix/slightly volume down as a contributing factor. 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 continue on Airvo, continue IV steroids and continue Lasix. Pulm following #History of aortic valve disease s/p mechanical valve replacement 2012/s/p VSD repair: -Has mechanical bileaflet aortic valve prosthesis per cardiology office note 06/27/22 -On Coumadin at home but had a supratherapeutic INR so this was initially held -INR goal is documented as 2.5-3.5 likely d/t bileaflet valve but has hx of prior VTA\E and additionally afib. -Coumadin resumed yesterday -INR monitored and managed on outpatient basis by Franklyn Matson -07/08: Discussed w/ pulm. Will hold for 24 hours. Starting tomorrow pending AM INR- appears previous weekly dose of Coumadin was 32, given the RE-LY trial algorithm will decrease by 15 %/week which roughly equilibrates to 4 mg daily however given jump from 2-2.8 in 1 day will resume Coumadin at 3 and can titrate further as indicated. Continue to monitor INR daily -07/09: INR 3.6, continue to hold Coumadin and monitor INR daily #Afib w/ RVR -Was on amio and cardizem gtt -On metoprolol 50mg BID and Cardizem and amio po added by cardiology 07/07 -Echo this admission with EF of 50% and moderate pulmonary hypertension with mild global right ventricular dysfunction and mechanical aortic valve not well visualized -AC w/ coumadin -Do suspect some low grade tachycardia may remain given #1 as it is likely compensatory but will need to monitor for recurrence of RVR -07/08: Cardiology following, on Cardizem and Amio as well as metoprolol #Seizure disorder: On antiepileptics #History of DVT: On Coumadin as above #Hyperlipidemia: On statin DVT prophylaxis: scds Charges/Coding Visit Charges Inpatient E&M: 46669 Subs Hosp L2
--- NOTE | 2022-07-09 11:06 | CASEMGMT ---
Discharge Planning Updates sent to Franklyn Matson via [facility]. Notified them that patient continues to refuse therapy evals. Cleopatra Salazar
[2022-07-09] MEDS: Atorvastatin Calcium 20 MG Tablet PO (21:02)
[2022-07-09] MEDS: 0.9% Saline Lock 10 ML Syringe IV (21:04)
--- NOTE | 2022-07-09 23:45 | CPS ---
pt refused bipap at this time-remains on airvo
[2022-07-10] VITALS (16 sets, daily range): BP systolic 117–129; BP diastolic 52–78; PULSE 71–78; RESP 15–24; TEMP 36.6–36.8; O2SAT 91–97; BMI 24.7
[2022-07-10] MEDS: Ipratropium 0.5 MG/2.5 ML SOLUTION INHALATION ×3 (03:46→14:11)
[2022-07-10] MEDS: Divalproex Sodium 125 MG Tablet 250 MG PO ×3 (05:43→22:03)
[2022-07-10] MEDS: dilTIAZem 60 MG Tablet PO ×3 (05:43→17:14)
[2022-07-10] MEDS: Methylprednisolone Sod Succ 40 MG/ML VIAL IV ×3 (05:44→22:06)
[2022-07-10] MEDS: Phenytoin Na 100 MG Capsule PO ×3 (05:44→22:03)
[2022-07-10] MEDS: 0.9% Saline Lock 10 ML Syringe IV ×4 (05:45→17:15)
[2022-07-10 06:32] LABS: Hematocrit 38.1 % (40-54); Hemoglobin 11.5 g/dL (13.0-16.5); Mean Corp Hgb Conc 30.2 g/dL (32-36); Mean Corpuscular Hgb 32.1 pg (27.0-32.0); Mean Corpuscular Volume 106.4 fL (80-94); Mean Platelet Vol. 11.3 fl (6.2-12.0); POSITIVE COUNT YES; POSITIVE MORPHOLOGY YES; Platelet Count 207 K/mm3 (150-450); RBC Distribution Width CV 13.6 % (11.6-14.6); RBC Distribution Width SD 53.8 fl (35.1-43.9); Red Blood Count 3.58 M/mm3 (4.6-6.2); White Blood Count 13.4 K/mm3 (4.4-11.0)
[2022-07-10 06:58] LABS: Differential Indicated MANUAL DIFF
[2022-07-10 07:02] LABS: International Normalized Ratio 2.6; Prothrombin Time (Protime)PT. 28.3 SECONDS (11.7-14.9)
[2022-07-10 07:05] LABS: Anion Gap 2 (5-15); BUN 51 mg/dL (7-18); Calcium,Total 8.9 mg/dL (8.5-10.1); Chloride 94 mmol/L (98-107); Creatinine, Serum 1.04 mg/dL (0.70-1.30); EST Glomerular Filtration Rate 78 mL/min (>60); Est Glom Filt Rate - Afr Amer 94 mL/min (>60); Estimated Creatinine Clearance 86.01 ml/min; Glucose 256 mg/dL (74-106); Potassium 4.7 mmol/L (3.5-5.1); Sodium Level 140 mmol/L (136-145)
[2022-07-10 07:25] LABS: Neutrophil-Band 3 % (0-5); Neutrophil-Segmented 82 % (47-70); Total Cells Counted 100 (MANUAL DIFF)
[2022-07-10 07:26] LABS: Lymphocyte 5 % (19-41); Monocyte 7 % (0-10); Myelocyte 3 % (0-0); Platelet Estimate ADEQUATE (ADEQ)
[2022-07-10 07:27] LABS: Absolute Lymphocyte Count 0.67 X10^3/uL (0.83-4.51); Absolute Neutrophil Count 11.4 X10^3/uL (2.0-7.7); Lymphocyte # 0.67 X10^3/ul (0.83-4.51); Neutrophil # 11.36 X10^3/uL (2.7-7.7); Red Cell Morphology NORM C+C NORMAL (NORM C&C)
--- NOTE | 2022-07-10 08:49 | PCM.PN.INT ---
Assessment & Plan Assessment/Plan (1) Acute and chronic respiratory failure with hypoxia: PLAN: Plan RECOMMENDATIONS: 1. Continue scheduled Atrovent aerosols given tachycardia. 2. Completes azithromycin today, ceftriaxone through 7 days 3. Continue IV steroids. Continue increased diuretics for now 4. Wean supplemental oxygen to maintain saturations at or above 90%. 5. Obtain INR daily. Could dose with low-dose Coumadin 6. ABG as necessary for change in mental status IMPRESSIONS: 1. Acute on chronic combined respiratory failure, likely secondary to COPD exacerbation The patient has a known history of end-stage COPD and chronic hypoxemic respiratory failure with a baseline 5 to 6 L/min oxygen requirement. He is also prescribed a triple therapy inhaler regimen at his baseline. Patient does not use his home noninvasive ventilator as prescribed. The patient presented with worsening shortness of breath and radiographic evidence of a left lower lobe infiltrate. He remains on appropriate therapy with antibiotics, bronchodilators and IV steroids. We will keep steroids at the current level until patient improves. Failure to comply with BiPAP therapy does increase risk of poor outcome. Continue to wean supplemental oxygen to maintain oxygen saturations at or above 90%. Encourage incentive spirometer use and mobilize patient as tolerated. Patient continues to be very resistant to a change in goals of therapy significant concern patient will develop respiratory muscle fatigue with continued tachypnea 2. History of aortic valve replacement/status post VSD repair/coagulopathy Continue daily Lasix regimen for now. The patient did present with a supratherapeutic INR. Monitor Coumadin closely given concomitant antibiotics. Recommend checking INR daily. 3. Unspecified seizure disorder/hypertension/hyperlipidemia Complicates care, management, recovery and prognosis. Continue home medications as indicated. Patient has remained tachypneic for days, but is not interested in palliative measures. Patient is clear that he does not want to be intubated for any reason. If mentation is declining, would obtain an ABG to evaluate for CO2 retention as this may change goals of therapy This note was generated with [employer] dictation software. It may contain incorrect words, spelling, and punctuation that were not noted in checking the note before signing. Subjective Subjective Patient did okay overnight. No acute issues were reported. Patient has remained tachypneic, but is not reporting any decline in overall condition. Respiratory therapy reports patient has been complaining about his DuoNeb therapy, but is compliant. Patient continues to refuse BiPAP therapy with sleep or rescue during the day. Patient is also significantly against transition to comfort measures. Objective Data Objective Data Vital Signs: Vital Signs Temp Pulse Resp BP Pulse Ox O2 Del Method O2 Flow Rate 36.8 C 77 18 117/68 94 Airvo 50 07/10/22 08:06 07/10/22 08:48 07/10/22 08:48 07/10/22 08:06 07/10/22 08:48 07/10/22 08:10 07/10/22 08:10 FiO2 40 07/10/22 08:48 Oxygen Flow Rate (L/min) 50 Oxygen Delivery Method Airvo Weight: 82.6 kg Body Mass Index (BMI) 24.7 Intake & Output: Intake and Output for Last 24 Hours 07/08/22 07/09/22 07/10/22 23:59 23:59 23:59 Intake Total 785 / 905 985 / 1205 250 / 250 Output Total 1300 / 1300 1050 / 1550 1100 / 1100 Balance -515 / -395 -65 / -345 -850 / -850 Lab / Micro Data Attestation: I reviewed the patient's lab results. Result Diagrams: 07/10/22 05:05 07/10/22 05:05 Labs: Laboratory Results - last 24 hr 07/10/22 05:05: WBC 13.4 H, RBC 3.58 L, Hgb 11.5 L, Hct 38.1 L, MCV 106.4 H, MCH 32.1 H, MCHC 30.2 L, RDW Std Deviation 53.8 H, RDW Coeff of Joseluis 13.6, Plt Count 207, MPV 11.3, Neut % (Auto) Not Reportable, Absolute Neuts (auto) 11.4 H, Absolute Lymphs (auto) 0.67 L, Total Counted 100, Neutrophils % (Manual) 82 H, Band Neutrophils % 3, Lymphocytes % (Manual) 5 L, Monocytes % (Manual) 7, Myelocytes % 3 H, Diff Path Review May , Platelet Estimate ADEQUATE, RBC Morphology NORM C+C 07/10/22 05:05: Sodium 140, Potassium 4.7, Chloride 94 L, Carbon Dioxide 44.0 H, Anion Gap 2 L, BUN 51 H, Creatinine 1.04, Estim Creat Clear Calc 86.01, Est GFR (MDRD) Af Amer 94, Est GFR (MDRD) Non-Af 78, BUN/Creatinine Ratio 49.0 H, Glucose 256 H, Calcium 8.9 07/10/22 05:05: PT 28.3 H, INR 2.6 Micro: Microbiology 07/04/22 15:45 Blood Culture (Wb) - No Site/Description Given Blood Culture - Final No growth in 5 days. 07/04/22 15:27 Blood Culture (Wb) - Right Hand Blood Culture - Final No growth in 5 days. 07/04/22 15:15 Mucosa - Nose Respiratory Panel (PCR) - Final 07/04/22 15:27 Urine, Random Legionella Antigen - Final 07/04/22 15:27 Urine, Random Streptococcus pneumoniae Antigen (M - Final 07/04/22 15:15 Nasal Secretion SARS-CoV-2 & FLU Antigen (Rapid) - Final Physical Exam Const alert and no apparent distress Constitutional Narrative: Appears older than his stated age. Some conversational dyspnea noted General Appearance: cooperative, in distress Positive for mild and respiratory and ill appearing HEENT normocephalic and head/scalp atraumatic Eyes PERRL, EOMs intact bilaterally and conjunctivae normal Neck supple General: trachea midline Chest inspection of chest normal Chest Narrative: No paradoxical chest movement Resp Effort and Inspection: tachypneic Auscultation: rales and diminished lung sounds; Negative for rhonchi or wheezes Cardio S1 normal heart sound and S2 normal heart sound Cardio Narrative: Mechanical heart sounds Rate: tachycardic Heart Sounds: murmur GI normal to inspection, nondistended, normoactive bowel sounds Extremity no clubbing, cyanosis or edema Skin no rashes or lesions noted Neuro CN's II-XII intact bilaterally and no focal motor deficits Psych Mood & Affect: flat affect Charges/Coding Visit Charges Inpatient E&M: 61148 Subs Hosp L3
[2022-07-10] MEDS: Furosemide 40 MG/4 ML Vial IV ×2 (09:07→17:15)
--- NOTE | 2022-07-10 09:09 | PCM.PN.HOSP ---
Reason for Visit Reason for Visit: Diagnoses Epilepsy, unspecified, not intractable, without status epilepticus (07/04/22) Obstructive sleep apnea (adult) (pediatric) (07/04/22) Nonrheumatic aortic valve disorder, unspecified (07/04/22) Unspecified atrial fibrillation (07/04/22) Pneumonia, unspecified organism (07/04/22) Chronic obstructive pulmonary disease with (acute) exacerbation (07/04/22) Acute and chronic respiratory failure with hypoxia (07/04/22) Subjective Subjective Still short of breath, Airvo being weaned down Objective Data Objective Data Vital Signs: Vital Signs Temp Pulse Resp BP Pulse Ox O2 Del Method O2 Flow Rate 98.2 F 77 18 117/68 94 Airvo 50 07/10/22 08:06 07/10/22 08:48 07/10/22 08:48 07/10/22 08:06 07/10/22 08:48 07/10/22 08:10 07/10/22 08:10 FiO2 40 07/10/22 08:48 Oxygen Flow Rate (L/min) 50 Oxygen Delivery Method Airvo Weight: 82.6 kg Body Mass Index (BMI) 24.7 Intake & Output: Intake and Output for Last 24 Hours 07/08/22 07/09/22 07/10/22 23:59 23:59 23:59 Intake Total 785 / 905 985 / 1205 250 / 250 Output Total 1300 / 1300 1050 / 1550 1100 / 1100 Balance -515 / -395 -65 / -345 -850 / -850 Lab / Micro Data Result Diagrams: 07/10/22 05:05 07/10/22 05:05 Labs: Laboratory Results - last 24 hr 07/10/22 05:05: WBC 13.4 H, RBC 3.58 L, Hgb 11.5 L, Hct 38.1 L, MCV 106.4 H, MCH 32.1 H, MCHC 30.2 L, RDW Std Deviation 53.8 H, RDW Coeff of Joseluis 13.6, Plt Count 207, MPV 11.3, Neut % (Auto) Not Reportable, Absolute Neuts (auto) 11.4 H, Absolute Lymphs (auto) 0.67 L, Total Counted 100, Neutrophils % (Manual) 82 H, Band Neutrophils % 3, Lymphocytes % (Manual) 5 L, Monocytes % (Manual) 7, Myelocytes % 3 H, Diff Path Review June, Platelet Estimate ADEQUATE, RBC Morphology NORM C+C 07/10/22 05:05: Sodium 140, Potassium 4.7, Chloride 94 L, Carbon Dioxide 44.0 H, Anion Gap 2 L, BUN 51 H, Creatinine 1.04, Estim Creat Clear Calc 86.01, Est GFR (MDRD) Af Amer 94, Est GFR (MDRD) Non-Af 78, BUN/Creatinine Ratio 49.0 H, Glucose 256 H, Calcium 8.9 07/10/22 05:05: PT 28.3 H, INR 2.6 Micro: Microbiology 07/04/22 15:45 Blood Culture (Wb) - No Site/Description Given Blood Culture - Final No growth in 5 days. 07/04/22 15:27 Blood Culture (Wb) - Right Hand Blood Culture - Final No growth in 5 days. 07/04/22 15:15 Mucosa - Nose Respiratory Panel (PCR) - Final 07/04/22 15:27 Urine, Random Legionella Antigen - Final 07/04/22 15:27 Urine, Random Streptococcus pneumoniae Antigen (M - Final 07/04/22 15:15 Nasal Secretion SARS-CoV-2 & FLU Antigen (Rapid) - Final Physical Exam Narrative General: Tired today HEENT: Atraumatic, normocephalic Eyes: Anicteric, normal conjunctiva, extraocular movements grossly intact Neck: Supple Respiratory: Increased work of breathing, somewhat diminished breath sounds Cardiovascular: Mildly tachycardic GI: Soft, nontender, nondistended Extremities: No edema Musculoskeletal: Moving all extremities Neuro: No overt focal neurological deficits Skin: No rashes appreciated Psych: Cooperative Assessment & Plan Assessment/Plan (1) Acute and chronic respiratory failure with hypoxia: (2) COPD exacerbation: (3) Atrial fibrillation: (4) Aortic valve disease: (5) Pneumonia: (6) ANGLE (obstructive sleep apnea): (7) Acute and chronic respiratory failure with hypoxia: (8) Epilepsy: QUALIFIERS: Epilepsy type: unspecified Intractability: not intractable Status epilepticus: without status epilepticus Qualified Code(s): G40.909 - Epilepsy, unspecified, not intractable, without status epilepticus PLAN: Plan #Acute on chronic hypoxic respiratory failure due to acute on chronic end-stage COPD exacerbation as well as probable CAP with underlying moderate pulmonary htn and ANGEL w/ difficulty w/ NIPPV compliance -On 5 to 6 L O2 at baseline with history of end-stage COPD. Triple inhaler therapy at baseline and does not use his home NIPPV as prescribed which likely contributed however did also have x-ray suspicious for left lower lobe infiltrate. -Titrate oxygen to maintain saturation above 90%. On IV ceftriaxone and azithromycin -Dependent on Airvo and BiPAP. Continue IV Solu-Medrol and breathing treatments, pulmonology on board. On Rocephin and azithromycin. Remains on Lasix -Troponins x3 were not elevated. -Urine for strep and Legionella negative. -Respiratory panel and COVID/flu negative -2D echo showed EF Of 50% and moderate pulmonary hypertension and mechanical aortic valve not well visualized and mildly enlarged left atrium, as well as mild global right ventricular dysfunction. -07/08: Remains on IV steroids and ipratropium nebs, albuterol held due to his tachycardia. Lasix dose increased. Prognosis seems poor especially given noncompliance with NIPPV -07/09: Continues to not tolerate NIPPV but has not been willing to change goals of care, bicarb slowly increasing, may be retaining some amount of CO2 given he is not using NIPPV though cannot rule out Lasix/slightly volume down as a contributing factor. Do not think a blood gas would change management facilitator at this point given his refusal for BiPAP but can consider it if any changes in mental status or rapid deterioration. continue on Airvo, continue IV steroids and continue Lasix. Pulm following -07/10: Last dose of azithromycin today, Rocephin for 2 more days. Continue nebs and Lasix. Wean Airvo as tolerated #History of aortic valve disease s/p mechanical valve replacement 2012/s/p VSD repair: -Has mechanical bileaflet aortic valve prosthesis per cardiology office note 06/27/22 -On Coumadin at home but had a supratherapeutic INR so this was initially held -INR goal is documented as 2.5-3.5 likely d/t bileaflet valve but has hx of prior VTA\E and additionally afib. -Coumadin resumed yesterday -INR monitored and managed on outpatient basis by Franklyn Matson -07/08: Discussed w/ pulm. Will hold for 24 hours. Starting tomorrow pending AM INR- appears previous weekly dose of Coumadin was 32, given the RE-LY trial algorithm will decrease by 15 %/week which roughly equilibrates to 4 mg daily however given jump from 2-2.8 in 1 day will resume Coumadin at 3 and can titrate further as indicated. Continue to monitor INR daily -07/09: INR 3.6, continue to hold Coumadin and monitor INR daily -07/10: INR 2.6 today, will resume Coumadin at a lower dose #Afib w/ RVR -Was on amio and cardizem gtt -On metoprolol 50mg BID and Cardizem and amio po added by cardiology 07/07 -Echo this admission with EF of 50% and moderate pulmonary hypertension with mild global right ventricular dysfunction and mechanical aortic valve not well visualized -AC w/ coumadin -Do suspect some low grade tachycardia may remain given #1 as it is likely compensatory but will need to monitor for recurrence of RVR -07/08: Cardiology following, on Cardizem and Amio as well as metoprolol #Seizure disorder -On Depakote and phenytoin -07/10: Given patient being more tired over the past 2 days will order Depakote level, ammonia, LFTs. We will attempt to order phenytoin level #History of DVT: On Coumadin as above #Hyperlipidemia: On statin DVT prophylaxis: scds Charges/Coding Visit Charges Inpatient E&M: 26845 Subs Hosp L2
[2022-07-10] MEDS: Fluoxetine HCl 40 MG CAPSULE PO (09:10)
[2022-07-10] MEDS: Ensure Plus High Protein 120 ML LIQUID PO ×3 (09:10→17:14)
[2022-07-10] MEDS: FLUoxetine 10 MG Capsule PO (09:10)
[2022-07-10] MEDS: Metoprolol Tartrate 50 MG Tablet PO ×2 (09:10→22:04)
[2022-07-10] MEDS: Amiodarone 200 MG Tablet PO (09:11)
[2022-07-10 09:51] LABS: Pathologist Review Reviewed
[2022-07-10 09:57] LABS: AST(SGOT) 62 U/L (15-37); Alanine Aminotransfer ALT/SGPT 74 U/L (16-61); Albumin, Serum 2.5 g/dL (3.2-5.0); Alkaline Phosphatase 159 U/L (45-117); Bilirubin, Direct 0.07 mg/dL (0.00-0.30); Globulin 4.2 g/dL (2.2-4.2); Protein, Total 6.7 g/dL (6.4-8.2)
[2022-07-10] MEDS: guaiFENesin Dm 10 ML UDC PO ×2 (10:19→17:13)
[2022-07-10 10:35] LABS: Valproic Acid (Depakene) Level 29 ug/mL (50-100)
--- NOTE | 2022-07-10 11:11 | CASEMGMT ---
Received a message from Franklyn Matson, Let me know if you need us to contact [facility]- for added support. Physician said that may be beneficial as patient is not using the bipap and will not change his code status. Without use of bipap his condition could continue to worsen. SW called Franklyn Matson and was told they will have Rox, their SW call ANAID back. Meliza Mahajan [employer]
--- NOTE | 2022-07-10 12:20 | CASEMGMT ---
ANAID received a voice mail from ANAID Gramajo with [facility]. She asked ANAID to call her back. Meliza AGUDELO
[2022-07-10] MEDS: Albuterol 2.5 MG/3 ML VIAL.NEB. INHALATION (14:11)
[2022-07-10] MEDS: Atorvastatin Calcium 20 MG Tablet PO (22:03)
[2022-07-11] VITALS (15 sets, daily range): BP systolic 105–122; BP diastolic 64–77; PULSE 73–79; RESP 16–20; TEMP 36.6–36.9; O2SAT 92–99; BMI 24.8
[2022-07-11] MEDS: dilTIAZem 60 MG Tablet PO ×4 (00:48→17:37)
--- NOTE | 2022-07-11 04:15 | NURSING ---
When trying to fix incorrectly scanned medication, accidentally un did documentation for Cardizem 60mg PO for July 10 at midnight. This medication was given on time on July 10 by this RN, but appears on the MAR as if it wasn't given due to being unsure of what time exactly it was given.
[2022-07-11] MEDS: Divalproex Sodium 125 MG Tablet 250 MG PO ×3 (05:28→21:35)
[2022-07-11] MEDS: Phenytoin Na 100 MG Capsule PO ×3 (05:29→21:34)
[2022-07-11] MEDS: Methylprednisolone Sod Succ 40 MG/ML VIAL IV ×2 (05:29→14:21)
[2022-07-11] MEDS: 0.9% Saline Lock 10 ML Syringe IV ×5 (05:30→17:38)
[2022-07-11 06:38] LABS: Hematocrit 40.3 % (40-54); Mean Corp Hgb Conc 29.8 g/dL (32-36); Mean Corpuscular Hgb 31.5 pg (27.0-32.0); Mean Corpuscular Volume 105.8 fL (80-94); Mean Platelet Vol. 10.9 fl (6.2-12.0); POSITIVE COUNT YES; POSITIVE MORPHOLOGY YES; Platelet Count 197 K/mm3 (150-450); RBC Distribution Width CV 13.4 % (11.6-14.6); RBC Distribution Width SD 52.7 fl (35.1-43.9); Red Blood Count 3.81 M/mm3 (4.6-6.2); White Blood Count 11.4 K/mm3 (4.4-11.0)
[2022-07-11 06:39] LABS: Differential Indicated MANUAL DIFF
[2022-07-11 06:55] LABS: International Normalized Ratio 2.1; Prothrombin Time (Protime)PT. 23.7 SECONDS (11.7-14.9)
[2022-07-11 07:08] LABS: Lymphocyte 8 % (19-41); Metamyelocyte 1 % (0-1); Monocyte 3 % (0-10); Myelocyte 4 % (0-0); Neutrophil-Segmented 84 % (47-70); Platelet Estimate ADEQUATE (ADEQ); Total Cells Counted 100 (MANUAL DIFF)
[2022-07-11 07:09] LABS: Anisocytosis 1+; Macrocytosis 1+
[2022-07-11 07:10] LABS: Pathologist Review May foll
[2022-07-11 07:11] LABS: Absolute Neutrophil Count 9.6 X10^3/uL (2.0-7.7); Lymphocyte # 9.59 X10^3/ul (0.83-4.51)
[2022-07-11 07:12] LABS: Absolute Lymphocyte Count 0.91 X10^3/uL (0.83-4.51); Monocyte# 0.91 X10^3/uL
[2022-07-11] MEDS: Ipratropium 0.5 MG/2.5 ML SOLUTION INHALATION ×5 (07:24→23:42)
[2022-07-11 07:25] LABS: ALB/GLOB Ratio 0.6 RATIO (0.9-2.4); AST(SGOT) 69 U/L (15-37); Alanine Aminotransfer ALT/SGPT 88 U/L (16-61); Albumin, Serum 2.6 g/dL (3.2-5.0); Alkaline Phosphatase 149 U/L (45-117); BUN 55 mg/dL (7-18); BUN/Creat Ratio 56.9 RATIO (10-20); Calcium,Total 8.9 mg/dL (8.5-10.1); Carbon Dioxide > 45.0 mmol/L (21.0-32.0); Chloride 92 mmol/L (98-107); Creatinine, Serum 0.97 mg/dL (0.70-1.30); EST Glomerular Filtration Rate 85 mL/min (>60); Est Glom Filt Rate - Afr Amer 103 mL/min (>60); Estimated Creatinine Clearance 92.22 ml/min; Glucose 177 mg/dL (74-106); Potassium 4.7 mmol/L (3.5-5.1); Protein, Total 6.6 g/dL (6.4-8.2); Sodium Level 142 mmol/L (136-145)
[2022-07-11] MEDS: Ensure Plus High Protein 120 ML LIQUID PO ×3 (09:00→17:35)
[2022-07-11] MEDS: FLUoxetine 10 MG Capsule PO (09:06)
[2022-07-11] MEDS: Fluoxetine HCl 40 MG CAPSULE PO (09:06)
[2022-07-11] MEDS: Amiodarone 200 MG Tablet PO (09:06)
[2022-07-11] MEDS: Furosemide 40 MG/4 ML Vial IV ×2 (09:07→17:38)
[2022-07-11] MEDS: Metoprolol Tartrate 50 MG Tablet PO ×2 (09:07→21:35)
--- NOTE | 2022-07-11 09:20 | PN_ITS ---
Progress Note In reviewing the patient's medical history, it is the recommendation t he patient would qualify for Outpatient Pulmonary Rehabilitation services. Her COPD, and chronic hypoxemia meets the guidelines. The order can come form her Primary or Pulmonary Physician. Thank you for allowing us to participate int eh patient's care. Dominic Brantley CRT, ACCESSORIES REPAIRER, BS Clinical Allergy And Immunology Chief Cardioh & Pulmonary Rehabilitation
--- NOTE | 2022-07-11 09:39 | PCM.PN.HOSP ---
Reason for Visit Reason for Visit: Diagnoses Epilepsy, unspecified, not intractable, without status epilepticus (07/04/22) Obstructive sleep apnea (adult) (pediatric) (07/04/22) Nonrheumatic aortic valve disorder, unspecified (07/04/22) Unspecified atrial fibrillation (07/04/22) Pneumonia, unspecified organism (07/04/22) Chronic obstructive pulmonary disease with (acute) exacerbation (07/04/22) Acute and chronic respiratory failure with hypoxia (07/04/22) Subjective Subjective Patient irritable and wants to go back to the retirement, very uncooperative today and would not answer most questions but has been having somewhat of a cough, remains on Airvo Objective Data Objective Data Vital Signs: Vital Signs Temp Pulse Resp BP Pulse Ox O2 Del Method O2 Flow Rate 98.2 F 76 18 105/67 95 Airvo 40 07/11/22 08:57 07/11/22 09:07 07/11/22 08:57 07/11/22 08:57 07/11/22 08:57 07/11/22 09:17 07/10/22 16:49 FiO2 40 07/11/22 07:24 Oxygen Flow Rate (L/min) 40 Oxygen Delivery Method Airvo Weight: 83.2 kg Body Mass Index (BMI) 24.8 Intake & Output: Intake and Output for Last 24 Hours 07/09/22 07/10/22 07/11/22 23:59 23:59 23:59 Intake Total 985 / 1205 795 / 795 280 / 280 Output Total 1050 / 1550 2350 / 2350 650 / 650 Balance -65 / -345 -1555 / -1555 -370 / -370 Lab / Micro Data Result Diagrams: 07/11/22 06:15 07/11/22 06:15 Labs: Laboratory Results - last 24 hr 07/08/22 05:55: Diff Path Review Reviewed 07/10/22 05:05: Total Bilirubin 0.20, Direct Bilirubin 0.07, AST 62 H, ALT 74 H, Alkaline Phosphatase 159 H, Total Protein 6.7, Albumin 2.5 L, Globulin 4.2 07/10/22 09:53: Valproic Acid 29 L 07/10/22 09:53: Ammonia 31.0 07/11/22 06:15: WBC 11.4 H, RBC 3.81 L, Hgb 12.0 L, Hct 40.3, MCV 105.8 H, MCH 31.5, MCHC 29.8 L, RDW Std Deviation 52.7 H, RDW Coeff of Joseluis 13.4, Plt Count 197, MPV 10.9, Neut % (Auto) Not Reportable, Absolute Neuts (auto) 9.6 H, Absolute Lymphs (auto) 0.91, Total Counted 100, Neutrophils % (Manual) 84 H, Lymphocytes % (Manual) 8 L, Monocytes % (Manual) 3, Metamyelocytes % 1, Myelocytes % 4 H, Diff Path Review June, Platelet Estimate ADEQUATE, Anisocytosis 1+, Macrocytosis 1+ 07/11/22 06:15: PT 23.7 H, INR 2.1 07/11/22 06:15: Sodium 142, Potassium 4.7, Chloride 92 L, Carbon Dioxide > 45.0 H*, Anion Gap TNP, BUN 55 H, Creatinine 0.97, Estim Creat Clear Calc 92.22, Est GFR (MDRD) Af Amer 103, Est GFR (MDRD) Non-Af 85, BUN/Creatinine Ratio 56.9 H, Glucose 177 H, Calcium 8.9, Total Bilirubin 0.20, AST 69 H, ALT 88 H, Alkaline Phosphatase 149 H, Total Protein 6.6, Albumin 2.6 L, Globulin 4.0, Albumin/Globulin Ratio 0.6 L Micro: Microbiology 07/04/22 15:45 Blood Culture (Wb) - No Site/Description Given Blood Culture - Final No growth in 5 days. 07/04/22 15:27 Blood Culture (Wb) - Right Hand Blood Culture - Final No growth in 5 days. 07/04/22 15:15 Mucosa - Nose Respiratory Panel (PCR) - Final 07/04/22 15:27 Urine, Random Legionella Antigen - Final 07/04/22 15:27 Urine, Random Streptococcus pneumoniae Antigen (M - Final 07/04/22 15:15 Nasal Secretion SARS-CoV-2 & FLU Antigen (Rapid) - Final Physical Exam Narrative General: Awake and alert HEENT: Atraumatic, normocephalic Eyes: Anicteric, normal conjunctiva, extraocular movements grossly intact Neck: Supple Respiratory: Stable work of breathing, remains on Airvo, no wheezes or rhonchi today Cardiovascular: Regular rate GI: Soft, nontender, nondistended Extremities: No edema Musculoskeletal: Moving all extremities Neuro: No overt focal neurological deficits Skin: No rashes appreciated Psych: Uncooperative Assessment & Plan Assessment/Plan (1) Acute and chronic respiratory failure with hypoxia: (2) COPD exacerbation: (3) Atrial fibrillation: (4) Aortic valve disease: (5) Pneumonia: (6) ANGEL (obstructive sleep apnea): (7) Acute and chronic respiratory failure with hypoxia: (8) Epilepsy: QUALIFIERS: Epilepsy type: unspecified Intractability: not intractable Status epilepticus: without status epilepticus Qualified Code(s): G40.909 - Epilepsy, unspecified, not intractable, without status epilepticus PLAN: Plan #Acute on chronic hypoxic respiratory failure due to acute on chronic end-stage COPD exacerbation as well as probable CAP with underlying moderate pulmonary htn and ANGEL w/ difficulty w/ NIPPV compliance -On 5 to 6 L O2 at baseline with history of end-stage COPD. Triple inhaler therapy at baseline and does not use his home NIPPV as prescribed which likely contributed however did also have x-ray suspicious for left lower lobe infiltrate. -Titrate oxygen to maintain saturation above 90%. On IV ceftriaxone and azithromycin -Dependent on Airvo and BiPAP. Continue IV Solu-Medrol and breathing treatments, pulmonology on board. On Rocephin and azithromycin. Remains on Lasix -Troponins x3 were not elevated. -Urine for strep and Legionella negative. -Respiratory panel and COVID/flu negative -2D echo showed EF Of 50% and moderate pulmonary hypertension and mechanical aortic valve not well visualized and mildly enlarged left atrium, as well as mild global right ventricular dysfunction. -07/08: Remains on IV steroids and ipratropium nebs, albuterol held due to his tachycardia. Lasix dose increased. Prognosis seems poor especially given noncompliance with NIPPV -07/09: Continues to not tolerate NIPPV but has not been willing to change goals of care, bicarb slowly increasing, may be retaining some amount of CO2 given he is not using NIPPV though cannot rule out Lasix/slightly volume down as a contributing factor. Do not think a blood gas would knife changer at this point given his refusal for BiPAP but can consider it if any changes in mental status or rapid deterioration. continue on Airvo, continue IV steroids and continue Lasix. Pulm following -07/10: Last dose of azithromycin today, Rocephin for 2 more days. Continue nebs and Lasix. Wean Airvo as tolerated -07/11: Remains on Airvo, very agitated and irritable today and wants to go back to retirement however given he is dependent on Airvo do not think that this is a possibility. Remains on IV steroids,If heart rate continues to be well controlled can consider adding albuterol as this may help breathing further. Additionally remains on IV Lasix twice daily creatinine stable but bicarb going up which is likely multifactorial, slight increase in BUN from yesterday, may need to consider decreasing in near future #History of aortic valve disease s/p mechanical valve replacement 2012/s/p VSD repair: -Has mechanical bileaflet aortic valve prosthesis per cardiology office note 06/27/22 -On Coumadin at home but had a supratherapeutic INR so this was initially held -INR goal is documented as 2.5-3.5 likely d/t bileaflet valve but has hx of prior VTE and additionally afib. -Coumadin resumed yesterday -INR monitored and managed on outpatient basis by Franklyn Matson -07/08: Discussed w/ pulm. Will hold for 24 hours. Starting tomorrow pending AM INR- appears previous weekly dose of Coumadin was 32, given the RE-LY trial algorithm will decrease by 15 %/week which roughly equilibrates to 4 mg daily however given jump from 2-2.8 in 1 day will resume Coumadin at 3 and can titrate further as indicated. Continue to monitor INR daily -07/09: INR 3.6, continue to hold Coumadin and monitor INR daily -07/10: INR 2.6 today, will resume Coumadin at a lower dose -07/11: Continue to monitor INR and adjust Coumadin as needed #Afib w/ RVR -Was on amio and cardizem gtt -On metoprolol 50mg BID and Cardizem and amio po added by cardiology 07/07 -Echo this admission with EF of 50% and moderate pulmonary hypertension with mild global right ventricular dysfunction and mechanical aortic valve not well visualized -AC w/ coumadin -Do suspect some low grade tachycardia may remain given #1 as it is likely compensatory but will need to monitor for recurrence of RVR -07/08: Cardiology following, on Cardizem and Amio as well as metoprolol -07/11: Doing much better on current medication regimen #Seizure disorder -On Depakote and phenytoin -07/10: Given patient being more tired over the past 2 days will order Depakote level, ammonia, LFTs. We will attempt to order phenytoin level -07/11: LFTs very slightly elevated, will continue to trend and hold atorvastatin, Depakote level is not elevated neither his ammonia #History of DVT: On Coumadin as above #Hyperlipidemia: On statin DVT prophylaxis: scds Charges/Coding Visit Charges Inpatient E&M: 64350 Subs Hosp L2
--- NOTE | 2022-07-11 10:34 | CASEMGMT ---
ANAID called Rox at [facility] and she was unavailable. Await return call. Meliza Mahajan BEVERAGE HOST [employer]
[2022-07-11] MEDS: guaiFENesin 1,200 MG Tablet 1200 MG PO ×2 (11:47→21:35)
--- NOTE | 2022-07-11 13:20 | CASEMGMT ---
ANAID did receive a return call from Rox the ANAID at [facility]. ANAID noted though that patient has improved and is now on 6L. Rox said she does have a good relationship with patient so if ANAID does need her to talk with him she is willing to do so. ANAID asked d/c transportation planning engineer Cleopatra to send updates to [facility] and let them know patient may be ready over the weekend. Meliza Mahajan MSW MAGNUS
--- NOTE | 2022-07-11 13:47 | CASEMGMT ---
Dicharge Planning Updates sent to Franklyn Matson with [facility]frame [facility]. Cleopatra Salazar
[2022-07-11] MEDS: Benzonatate 100 MG Capsule PO (14:21)
--- NOTE | 2022-07-11 15:15 | PCM.PN.INT ---
Assessment & Plan Assessment/Plan (1) COPD exacerbation: PLAN: Slow improvement - he can be changed to oral steroids today due to resolution of wheezing. He is still very tenuous. - CODE STATUS reviewed as DNR CCA. - Continue frequent bronchodilators, DuoNeb every 4 hours while awake as needed, and Trelegy daily - PT, OT, bronchopulmonary hygiene. - Recommend low threshold for reapplying noninvasive ventilation titrated by respiratory for clinical response, if patient develops unresponsiveness or refractory hypoxemia. However, he is resistant to using it currently. - Would also have a low threshold of doing a stat ABG if he is found less responsive, after his respiratory status has been stabilized. - Patient still wishes to have all care necessary to improve his physical status, but would avoid narcotics, benzodiazepine, and other medications that would suppress his respirations unless his goals of care change to comfort and end-of-life care. (2) Acute and chronic respiratory failure with hypoxia: PLAN: Patient noncompliance with BiPAP ventilation rest periods and nightly use complicate care, management, recovery and prognosis. This note was generated with [employer] dictation software. It may contain incorrect words, spelling, and punctuation that were not noted in checking the note before signing. If a media center director school error is noted that affects patient care, contact the author. Subjective Subjective Patient was sleeping when encountered in PCU 112, did not awaken to voice, did awaken with gently shaking his shoulder. He feels that his breathing has improved since he has been in the hospital, but is still very short of breath. He is declining use of noninvasive ventilation, but is on oxygen with good compliance. He is unable to get out of bed because of dyspnea, he soiled himself and was waiting for nurse to change him. Objective Data Objective Data The patient was seen and examined at the bedside this afternoon. Events from the last 24 hours have been reviewed. Labs, microbiology, radiographs, and pertinent data reviewed. He was on high flow O2 at 6 L/min when encountered. Vital Signs: Vital Signs Temp Pulse Resp BP Pulse Ox O2 Del Method O2 Flow Rate 98.2 F 75 18 110/64 98 High Flow 6 07/11/22 08:57 07/11/22 11:46 07/11/22 11:00 07/11/22 11:46 07/11/22 11:46 07/11/22 11:46 07/11/22 11:46 FiO2 40 07/11/22 07:24 Oxygen Flow Rate (L/min) 6 Oxygen Delivery Method High Flow Weight: 183 lb 6.793 oz Body Mass Index (BMI) 24.8 Intake & Output: Intake and Output for Last 24 Hours 07/09/22 07/10/22 07/11/22 23:59 23:59 23:59 Intake Total 985 / 1205 795 / 795 330 / 330 Output Total 1050 / 1550 2350 / 2350 650 / 650 Balance -65 / -345 -1555 / -1555 -320 / -320 Lab / Micro Data Result Diagrams: 07/11/22 06:15 07/11/22 06:15 Labs: Laboratory Results - last 24 hr 07/11/22 06:15: WBC 11.4 H, RBC 3.81 L, Hgb 12.0 L, Hct 40.3, MCV 105.8 H, MCH 31.5, MCHC 29.8 L, RDW Std Deviation 52.7 H, RDW Coeff of Joseluis 13.4, Plt Count 197, MPV 10.9, Neut % (Auto) Not Reportable, Absolute Neuts (auto) 9.6 H, Absolute Lymphs (auto) 0.91, Total Counted 100, Neutrophils % (Manual) 84 H, Lymphocytes % (Manual) 8 L, Monocytes % (Manual) 3, Metamyelocytes % 1, Myelocytes % 4 H, Diff Path Review June, Platelet Estimate ADEQUATE, Anisocytosis 1+, Macrocytosis 1+ 07/11/22 06:15: PT 23.7 H, INR 2.1 07/11/22 06:15: Sodium 142, Potassium 4.7, Chloride 92 L, Carbon Dioxide > 45.0 H*, Anion Gap TNP, BUN 55 H, Creatinine 0.97, Estim Creat Clear Calc 92.22, Est GFR (MDRD) Af Amer 103, Est GFR (MDRD) Non-Af 85, BUN/Creatinine Ratio 56.9 H, Glucose 177 H, Calcium 8.9, Total Bilirubin 0.20, AST 69 H, ALT 88 H, Alkaline Phosphatase 149 H, Total Protein 6.6, Albumin 2.6 L, Globulin 4.0, Albumin/Globulin Ratio 0.6 L Micro: Microbiology 07/04/22 15:45 Blood Culture (Wb) - No Site/Description Given Blood Culture - Final No growth in 5 days. 07/04/22 15:27 Blood Culture (Wb) - Right Hand Blood Culture - Final No growth in 5 days. 07/04/22 15:15 Mucosa - Nose Respiratory Panel (PCR) - Final 07/04/22 15:27 Urine, Random Legionella Antigen - Final 07/04/22 15:27 Urine, Random Streptococcus pneumoniae Antigen (M - Final 07/04/22 15:15 Nasal Secretion SARS-CoV-2 & FLU Antigen (Rapid) - Final Radiography Diagnostic Testing: STUDY: ? X-RAY CHEST REASON FOR EXAM: ? Male, 56 years old.? Pneumonia. TECHNIQUE: ? PA and lateral views of the chest. COMPARISON: ? October 05, 2021. FINDINGS: The lungs are hyperexpanded. There is chronic interstitial coarsening throughout both lungs. Question left retrocardiac infiltrate.? Small left pleural effusion. Sternal cerclage wires are present from a prior sternotomy. The heart is normal in size. ? Normal mediastinum and joselito.? Normal visualized pulmonary arteries.? There is atherosclerotic calcification of the aortic arch with tortuosity. Normal visualized thoracic spine.? Normal visualized ribs, clavicles, and shoulders. There is no demonstrated abnormality of the visualized soft tissue structures of the upper abdomen. RAD/Chest PA and Lateral IMPRESSION: Question left lower lobe infiltrate without other major interval change. ? Electronically Signed: Isai Law DO at 23:02 EDT Physical Exam Narrative Well-developed, disheveled man who is encountered sleeping, with chronic use of accessory muscles of respiration, prolonged expiratory phase. Able to awaken with gentle shoulder shaking but not to voice. He was alert upon awakening and responded appropriately. HEENT no thrush Chest has markedly diminished breath sounds bilaterally, but no wheezes rales or rhonchi, no cough during visit. Positive use of accessory muscles, symmetrical chest. Trachea is midline. Heart distant S1-S2 irregular Extremities have 1+ pitting, but moderate lymphedema present. Patient stated my legs are always like that Neuro: Diffusely weak, cranial nerves grossly intact and symmetrical. Charges/Coding Visit Charges Inpatient E&M: 02631 Subs Hosp L2
--- NOTE | 2022-07-11 21:16 | CPS ---
Patient refused PEP therapy at this time
[2022-07-11] MEDS: Atorvastatin Calcium 20 MG Tablet PO (21:38)
[2022-07-12] VITALS (21 sets, daily range): BP systolic 105–124; BP diastolic 70–87; PULSE 71–84; RESP 16–22; TEMP 36.5–37.1; O2SAT 87–100; BMI 24.7
[2022-07-12] MEDS: dilTIAZem 60 MG Tablet PO ×4 (00:13→18:01)
[2022-07-12] MEDS: Divalproex Sodium 125 MG Tablet 250 MG PO ×3 (05:59→21:45)
[2022-07-12] MEDS: Phenytoin Na 100 MG Capsule PO ×3 (05:59→21:45)
[2022-07-12] MEDS: Ipratropium 0.5 MG/2.5 ML SOLUTION INHALATION ×5 (07:25→23:19)
[2022-07-12 08:12] LABS: Hematocrit 41.7 % (40-54); Hemoglobin 12.6 g/dL (13.0-16.5); Mean Corp Hgb Conc 30.2 g/dL (32-36); Mean Corpuscular Hgb 31.7 pg (27.0-32.0); Mean Corpuscular Volume 104.8 fL (80-94); Mean Platelet Vol. 11.3 fl (6.2-12.0); POSITIVE COUNT YES; POSITIVE MORPHOLOGY YES; Platelet Count 178 K/mm3 (150-450); RBC Distribution Width CV 13.3 % (11.6-14.6); RBC Distribution Width SD 51.6 fl (35.1-43.9); Red Blood Count 3.98 M/mm3 (4.6-6.2); White Blood Count 13.4 K/mm3 (4.4-11.0)
[2022-07-12 08:21] LABS: Differential Indicated MANUAL DIFF
--- NOTE | 2022-07-12 08:23 | PN.HOSP_ITS ---
Reason for Visit Reason for Visit: Diagnoses Epilepsy, unspecified, not intractable, without status epilepticus (07/04/22) Obstructive sleep apnea (adult) (pediatric) (07/04/22) Nonrheumatic aortic valve disorder, unspecified (07/04/22) Unspecified atrial fibrillation (07/04/22) Pneumonia, unspecified organism (07/04/22) Chronic obstructive pulmonary disease with (acute) exacerbation (07/04/22) Acute and chronic respiratory failure with hypoxia (07/04/22) Subjective Subjective Resting comfortably in bed, on NC today Objective Data Objective Data Vital Signs: Vital Signs Temp Pulse Resp BP Pulse Ox O2 Del Method O2 Flow Rate 98.7 F 73 18 118/76 97 Nasal Cannula 4 07/12/22 03:15 07/12/22 06:00 07/12/22 03:15 07/12/22 06:00 07/12/22 03:15 07/12/22 06:52 07/12/22 06:52 FiO2 40 07/11/22 07:24 Oxygen Flow Rate (L/min) 4 Oxygen Delivery Method Nasal Cannula Weight: 83 kg Body Mass Index (BMI) 24.7 Intake & Output: Intake and Output for Last 24 Hours 07/10/22 07/11/22 07/12/22 23:59 23:59 23:59 Intake Total 795 / 795 1580 / 1580 Output Total 2350 / 2350 1650 / 1800 350 / 350 Balance -1555 / -1555 -70 / -220 -350 / -350 Lab / Micro Data Result Diagrams: 07/12/22 07:05 07/12/22 07:05 Labs: Laboratory Results - last 24 hr 07/12/22 07:05: WBC 13.4 H, RBC 3.98 L, Hgb 12.6 L, Hct 41.7, MCV 104.8 H, MCH 31.7, MCHC 30.2 L, RDW Std Deviation 51.6 H, RDW Coeff of Joseluis 13.3, Plt Count 178, MPV 11.3, Neut % (Auto) Not Reportable Micro: Microbiology 07/04/22 15:45 Blood Culture (Wb) - No Site/Description Given Blood Culture - Final No growth in 5 days. 07/04/22 15:27 Blood Culture (Wb) - Right Hand Blood Culture - Final No growth in 5 days. 07/04/22 15:15 Mucosa - Nose Respiratory Panel (PCR) - Final 07/04/22 15:27 Urine, Random Legionella Antigen - Final 07/04/22 15:27 Urine, Random Streptococcus pneumoniae Antigen (M - Final 07/04/22 15:15 Nasal Secretion SARS-CoV-2 & FLU Antigen (Rapid) - Final Physical Exam Narrative General: Awake and alert HEENT: Atraumatic, normocephalic Eyes: Anicteric, normal conjunctiva, extraocular movements grossly intact Neck: Supple Respiratory: Stable work of breathing, no wheezes, on nasal cannula today Cardiovascular: Regular rate GI: Soft, nontender, nondistended Extremities: No edema Musculoskeletal: Moving all extremities Neuro: No overt focal neurological deficits Skin: No rashes appreciated Psych: Uncooperative Assessment & Plan Assessment/Plan (1) Acute and chronic respiratory failure with hypoxia: (2) COPD exacerbation: (3) Atrial fibrillation: (4) Aortic valve disease: (5) Pneumonia: (6) ANGEL (obstructive sleep apnea): (7) Acute and chronic respiratory failure with hypoxia: (8) Epilepsy: QUALIFIERS: Epilepsy type: unspecified Intractability: not intractable Status epilepticus: without status epilepticus Qualified Code(s): G40.909 - Epilepsy, unspecified, not intractable, without status epilepticus PLAN: Plan #Acute on chronic hypoxic respiratory failure due to acute on chronic end-stage COPD exacerbation as well as probable CAP with underlying moderate pulmonary htn and ANGEL w/ difficulty w/ NIPPV compliance -On 5 to 6 L O2 at baseline with history of end-stage COPD. Triple inhaler therapy at baseline and does not use his home NIPPV as prescribed which likely contributed however did also have x-ray suspicious for left lower lobe infiltrate. -Titrate oxygen to maintain saturation above 90%. On IV ceftriaxone and azithromycin -Dependent on Airvo and BiPAP. Continue IV Solu-Medrol and breathing treatments, pulmonology on board. On Rocephin and azithromycin. Remains on Lasix -Troponins x3 were not elevated. -Urine for strep and Legionella negative. -Respiratory panel and COVID/flu negative -2D echo showed EF Of 50% and moderate pulmonary hypertension and mechanical aortic valve not well visualized and mildly enlarged left atrium, as well as mild global right ventricular dysfunction. -07/08: Remains on IV steroids and ipratropium nebs, albuterol held due to his tachycardia. Lasix dose increased. Prognosis seems poor especially given noncompliance with NIPPV -07/09: Continues to not tolerate NIPPV but has not been willing to change goals of care, bicarb slowly increasing, may be retaining some amount of CO2 given he is not using NIPPV though cannot rule out Lasix/slightly volume down as a contributing factor. Do not think a blood gas would change management manager at this point given his refusal for BiPAP but can consider it if any changes in mental status or rapid deterioration. continue on Airvo, continue IV steroids and continue Lasix. Pulm following -07/10: Last dose of azithromycin today, Rocephin for 2 more days. Continue nebs and Lasix. Wean Airvo as tolerated -07/11: Remains on Airvo, very agitated and irritable today and wants to go back to [facility] however given he is dependent on Airvo do not think that this is a possibility. Remains on IV steroids,If heart rate continues to be well controlled can consider adding albuterol as this may help breathing further. Additionally remains on IV Lasix twice daily creatinine stable but bicarb going up which is likely multifactorial, slight increase in BUN from yesterday, may need to consider decreasing in near future -07/12: De-escalated to oral steroids, discussed with Dr. Vega and placed him on 40 p.o. daily. We will attempt to transition oral Lasix as his BUN and bicarb continue to increase and he is not losing any weight and respiratory status improved but will continue on high-dose just by mouth and wean as tolerated #History of aortic valve disease s/p mechanical valve replacement 2012/s/p VSD repair: -Has mechanical bileaflet aortic valve prosthesis per cardiology office note 06/27/22 -On Coumadin at home but had a supratherapeutic INR so this was initially held -INR goal is documented as 2.5-3.5 likely d/t bileaflet valve but has hx of prior VTE and additionally afib. -Coumadin resumed yesterday -INR monitored and managed on outpatient basis by Franklyn Matson -07/08: Discussed w/ pulm. Will hold for 24 hours. Starting tomorrow pending AM INR- appears previous weekly dose of Coumadin was 32, given the RE-LY trial algorithm will decrease by 15 %/week which roughly equilibrates to 4 mg daily however given jump from 2-2.8 in 1 day will resume Coumadin at 3 and can titrate further as indicated. Continue to monitor INR daily -07/09: INR 3.6, continue to hold Coumadin and monitor INR daily -07/10: INR 2.6 today, will resume Coumadin at a lower dose -07/11: Continue to monitor INR and adjust Coumadin as needed #Afib w/ RVR -Was on amio and cardizem gtt -On metoprolol 50mg BID and Cardizem and amio po added by cardiology 07/07 -Echo this admission with EF of 50% and moderate pulmonary hypertension with mild global right ventricular dysfunction and mechanical aortic valve not well visualized -AC w/ coumadin -Do suspect some low grade tachycardia may remain given #1 as it is likely com pensatory but will need to monitor for recurrence of RVR -07/08: Cardiology following, on Cardizem and Amio as well as metoprolol -07/11: Doing much better on current medication regimen #Seizure disorder -On Depakote and phenytoin -07/10: Given patient being more tired over the past 2 days will order Depakote level, ammonia, LFTs. We will attempt to order phenytoin level -07/11: LFTs very slightly elevated, will continue to trend and hold atorvastatin, Depakote level is not elevated neither his ammonia #History of DVT: On Coumadin as above #Hyperlipidemia: On statin DVT prophylaxis: scds Charges/Coding Visit Charges Inpatient E&M: 57692 Subs Hosp L2
--- NOTE | 2022-07-12 08:51 | CPS ---
Pt refused to do SMI and pep
[2022-07-12 08:53] LABS: ALB/GLOB Ratio 0.6 RATIO (0.9-2.4); AST(SGOT) 77 U/L (15-37); Alanine Aminotransfer ALT/SGPT 116 U/L (16-61); Albumin, Serum 2.5 g/dL (3.2-5.0); Alkaline Phosphatase 142 U/L (45-117); BUN 61 mg/dL (7-18); BUN/Creat Ratio 68.7 RATIO (10-20); Calcium,Total 8.5 mg/dL (8.5-10.1); Carbon Dioxide > 45.0 mmol/L (21.0-32.0); Chloride 91 mmol/L (98-107); Creatinine, Serum 0.89 mg/dL (0.70-1.30); EST Glomerular Filtration Rate 94 mL/min (>60); Est Glom Filt Rate - Afr Amer 113 mL/min (>60); Estimated Creatinine Clearance 100.51 ml/min; Glucose 125 mg/dL (74-106); Potassium 4.6 mmol/L (3.5-5.1); Protein, Total 6.5 g/dL (6.4-8.2); Sodium Level 142 mmol/L (136-145)
[2022-07-12 09:06] LABS: International Normalized Ratio 2.7; Prothrombin Time (Protime)PT. 28.8 SECONDS (11.7-14.9)
[2022-07-12] MEDS: guaiFENesin 1,200 MG Tablet 1200 MG PO ×2 (09:52→21:45)
[2022-07-12] MEDS: Ensure Plus High Protein 120 ML LIQUID PO ×3 (09:52→18:01)
[2022-07-12] MEDS: Fluoxetine HCl 40 MG CAPSULE PO (09:52)
[2022-07-12] MEDS: FLUoxetine 10 MG Capsule PO (09:53)
[2022-07-12] MEDS: Metoprolol Tartrate 50 MG Tablet PO ×2 (09:53→21:46)
[2022-07-12] MEDS: predniSONE 20 MG Tablet 40 MG PO (09:54)
[2022-07-12] MEDS: Amiodarone 200 MG Tablet PO (09:54)
[2022-07-12] MEDS: Furosemide 40 MG/4 ML Vial IV (09:55)
[2022-07-12] MEDS: 0.9% Saline Lock 10 ML Syringe IV (09:55)
[2022-07-12 11:54] LABS: Lymphocyte 12 % (19-41); Metamyelocyte 1 % (0-1); Monocyte 7 % (0-10); Myelocyte 5 % (0-0); Neutrophil-Band 1 % (0-5); Neutrophil-Segmented 74 % (47-70); Total Cells Counted 100 (MANUAL DIFF)
[2022-07-12 11:55] LABS: Absolute Neutrophil Count 10.1 X10^3/uL (2.0-7.7); Platelet Estimate ADEQUATE (ADEQ); Red Cell Morphology NORM C+C NORMAL (NORM C&C)
[2022-07-12 11:56] LABS: Absolute Lymphocyte Count 1.61 X10^3/uL (0.83-4.51)
--- NOTE | 2022-07-12 12:13 | PN.CC_ITS ---
Assessment & Plan Assessment/Plan (1) Acute and chronic respiratory failure with hypoxia: (2) Acute exacerbation of chronic obstructive pulmonary disease: PLAN: Plan Patient continues to slowly improve from a respiratory standpoint. He is tolerating p.o. steroids well. I agree with other medications as presc ribed by his hospitalist team. - Pulmonary critical care will sign off for now, please call if further intervention and/or input are needed. Discussed with Dr. Prater today. Subjective Subjective Patient was not interested in seeing me today during my follow-up visit, complained that he had soiled himself again was waiting for another change. He is breathing more comfortably, awake alert and oriented. No cough during visit, no respiratory complaints. Objective Data Objective Data The patient was seen and examined at the bedside this morning. Events from the last 24 hours have been reviewed. The patient's most recent labs microbiology and imaging have all been personally reviewed. The case was discussed on ICU interdisciplinary rounds. Overnight: Stable on 6 L O2, recovering from left lower lobe pneumonia Pertinent events include: Change to p.o. steroids, leukocytosis persists on recent high-dose steroids, he is afebrile but has a left shift with myelocytes. Cultures are negative. Vital Signs: Vital Signs Temp Pulse Resp BP Pulse Ox O2 Del Method O2 Flow Rate 97.7 F L 74 16 114/73 92 High Flow 6 07/12/22 09:15 07/12/22 11:00 07/12/22 11:00 07/12/22 09:15 07/12/22 12:02 07/12/22 12:02 07/12/22 12:02 FiO2 40 07/11/22 07:24 Oxygen Flow Rate (L/min) 6 Oxygen Delivery Method High Flow Weight: 182 lb 15.739 oz Body Mass Index (BMI) 24.7 Intake & Output: Intake and Output for Last 24 Hours 07/10/22 07/11/22 07/12/22 23:59 23:59 23:59 Intake Total 795 / 795 1580 / 1580 850 / 850 Output Total 2350 / 2350 1650 / 1800 650 / 650 Balance -1555 / -1555 -70 / -220 200 / 200 Lab / Micro Data Result Diagrams: 07/12/22 07:05 07/12/22 07:05 Labs: Laboratory Results - last 24 hr 07/12/22 07:05: WBC 13.4 H, RBC 3.98 L, Hgb 12.6 L, Hct 41.7, MCV 104.8 H, MCH 31.7, MCHC 30.2 L, RDW Std Deviation 51.6 H, RDW Coeff of Joseluis 13.3, Plt Count 178, MPV 11.3, Neut % (Auto) Not Reportable, Absolute Neuts (auto) 10.1 H, Absolute Lymphs (auto) 1.61, Total Counted 100, Neutrophils % (Manual) 74 H, Band Neutrophils % 1, Lymphocytes % (Manual) 12 L, Monocytes % (Manual) 7, Metamyelocytes % 1, Myelocytes % 5 H, Diff Path Review June, Platelet Estimate ADEQUATE, RBC Morphology NORM C+C 07/12/22 07:05: PT 28.8 H, INR 2.7 07/12/22 07:05: Sodium 142, Potassium 4.6, Chloride 91 L, Carbon Dioxide > 45.0 H*, Anion Gap TNP, BUN 61 H, Creatinine 0.89, Estim Creat Clear Calc 100.51, Est GFR (MDRD) Af Amer 113, Est GFR (MDRD) Non-Af 94, BUN/Creatinine Ratio 68.7 H, Glucose 125 H, Calcium 8.5, Total Bilirubin 0.20, AST 77 H, ALT 116 H, Alkaline Phosphatase 142 H, Total Protein 6.5, Albumin 2.5 L, Globulin 4.0, Albumin/Globulin Ratio 0.6 L Micro: Microbiology 07/04/22 15:45 Blood Culture (Wb) - No Site/Description Given Blood Culture - Final No growth in 5 days. 07/04/22 15:27 Blood Culture (Wb) - Right Hand Blood Culture - Final No growth in 5 days. 07/04/22 15:15 Mucosa - Nose Respiratory Panel (PCR) - Final 07/04/22 15:27 Urine, Random Legionella Antigen - Final 07/04/22 15:27 Urine, Random Streptococcus pneumoniae Antigen (M - Final 07/04/22 15:15 Nasal Secretion SARS-CoV-2 & FLU Antigen (Rapid) - Final Radiography Diagnostic Testing: Personally reviewed. REASON FOR EXAM: ? Male, 56 years old.? Pneumonia. TECHNIQUE: ? PA and lateral views of the chest. COMPARISON: ? October 05, 2021. FINDINGS: The lungs are hyperexpanded. There is chronic interstitial coarsening throughout both lungs. Question left retrocardiac infiltrate.? Small left pleural effusion. Sternal cerclage wires are present from a prior sternotomy. The heart is normal in size. ? Normal mediastinum and joselito.? Normal visualized pulmonary arteries.? There is atherosclerotic calcification of the aortic arch with tortuosity. Normal visualized thoracic spine.? Normal visualized ribs, clavicles, and shoulders. There is no demonstrated abnormality of the visualized soft tissue structures of the upper abdomen. RAD/Chest PA and Lateral IMPRESSION: Question left lower lobe infiltrate without other major interval change. ? Electronically Signed: Isai Law DO at 23:02 EDT Physical Exam Narrative Unchanged from yesterday Lungs are clear on exam, prolonged expiratory phase, hyperinflated, no wheezes rales or rhonchi No leg edema Charges/Coding Visit Charges Inpatient E&M: 14943 Subs Hosp L1
[2022-07-12] MEDS: Benzonatate 100 MG Capsule PO (15:36)
[2022-07-12] MEDS: Furosemide 40 MG Tablet 60 MG PO (18:01)
[2022-07-12] MEDS: Atorvastatin Calcium 20 MG Tablet PO (21:46)
[2022-07-13] VITALS (16 sets, daily range): BP systolic 118–126; BP diastolic 66–81; PULSE 71–90; RESP 16–20; TEMP 36.4–37.1; O2SAT 86–100; BMI 23.5
[2022-07-13] MEDS: dilTIAZem 60 MG Tablet PO ×5 (00:48→23:20)
[2022-07-13] MEDS: Phenytoin Na 100 MG Capsule PO ×3 (05:12→21:05)
[2022-07-13] MEDS: Divalproex Sodium 125 MG Tablet 250 MG PO ×3 (05:12→21:05)
[2022-07-13 05:23] LABS: Hematocrit 41.9 % (40-54); Hemoglobin 12.6 g/dL (13.0-16.5); Mean Corp Hgb Conc 30.1 g/dL (32-36); Mean Corpuscular Hgb 31.8 pg (27.0-32.0); Mean Corpuscular Volume 105.8 fL (80-94); Mean Platelet Vol. 10.9 fl (6.2-12.0); POSITIVE COUNT YES; POSITIVE MORPHOLOGY YES; Platelet Count 161 K/mm3 (150-450); RBC Distribution Width CV 13.4 % (11.6-14.6); RBC Distribution Width SD 51.8 fl (35.1-43.9); Red Blood Count 3.96 M/mm3 (4.6-6.2); White Blood Count 12.7 K/mm3 (4.4-11.0)
[2022-07-13 05:43] LABS: International Normalized Ratio 2.4; Prothrombin Time (Protime)PT. 26.1 SECONDS (11.7-14.9)
[2022-07-13 05:54] LABS: Differential Indicated MANUAL DIFF
[2022-07-13 06:19] LABS: ALB/GLOB Ratio 0.7 RATIO (0.9-2.4); AST(SGOT) 52 U/L (15-37); Alanine Aminotransfer ALT/SGPT 93 U/L (16-61); Albumin, Serum 2.5 g/dL (3.2-5.0); Alkaline Phosphatase 133 U/L (45-117); BUN 56 mg/dL (7-18); BUN/Creat Ratio 57.2 RATIO (10-20); Calcium,Total 8.5 mg/dL (8.5-10.1); Carbon Dioxide > 45.0 mmol/L (21.0-32.0); Chloride 90 mmol/L (98-107); Creatinine, Serum 0.98 mg/dL (0.70-1.30); EST Glomerular Filtration Rate 84 mL/min (>60); Est Glom Filt Rate - Afr Amer 101 mL/min (>60); Estimated Creatinine Clearance 91.28 ml/min; Globulin 3.8 g/dL (2.2-4.2); Glucose 128 mg/dL (74-106); Potassium 4.2 mmol/L (3.5-5.1); Protein, Total 6.3 g/dL (6.4-8.2); Sodium Level 142 mmol/L (136-145)
[2022-07-13 06:30] LABS: Eosinophil 1 % (0-5); Lymphocyte 3 % (19-41); Metamyelocyte 3 % (0-1); Monocyte 3 % (0-10); Myelocyte 9 % (0-0); Neutrophil-Band 1 % (0-5); Neutrophil-Segmented 79 % (47-70); Promyelocyte 1 % (0-0); Total Cells Counted 100 (MANUAL DIFF)
[2022-07-13 06:31] LABS: Platelet Estimate ADEQUATE (ADEQ); Red Cell Morphology NORM C+C NORMAL (NORM C&C)
[2022-07-13 06:32] LABS: Absolute Lymphocyte Count 0.38 X10^3/uL (0.83-4.51); Absolute Neutrophil Count 10.2 X10^3/uL (2.0-7.7); Lymphocyte # 0.38 X10^3/ul (0.83-4.51); Neutrophil # 10.15 X10^3/uL (2.7-7.7)
[2022-07-13] MEDS: Ipratropium 0.5 MG/2.5 ML SOLUTION INHALATION ×4 (07:11→19:15)
[2022-07-13] MEDS: Ensure Plus High Protein 120 ML LIQUID PO ×3 (08:57→17:46)
[2022-07-13] MEDS: predniSONE 20 MG Tablet 40 MG PO (09:00)
[2022-07-13] MEDS: Amiodarone 200 MG Tablet PO (09:00)
[2022-07-13] MEDS: Metoprolol Tartrate 50 MG Tablet PO ×2 (09:00→21:05)
[2022-07-13] MEDS: FLUoxetine 10 MG Capsule PO (09:01)
[2022-07-13] MEDS: guaiFENesin 1,200 MG Tablet 1200 MG PO ×2 (09:01→21:05)
[2022-07-13] MEDS: Furosemide 40 MG Tablet 60 MG PO ×2 (09:01→17:46)
[2022-07-13] MEDS: Fluoxetine HCl 40 MG CAPSULE PO (09:01)
--- NOTE | 2022-07-13 12:03 | PCM.PN.HOSP ---
Reason for Visit Reason for Visit: Diagnoses Epilepsy, unspecified, not intractable, without status epilepticus (07/04/22) Obstructive sleep apnea (adult) (pediatric) (07/04/22) Nonrheumatic aortic valve disorder, unspecified (07/04/22) Unspecified atrial fibrillation (07/04/22) Pneumonia, unspecified organism (07/04/22) Chronic obstructive pulmonary disease with (acute) exacerbation (07/04/22) Acute and chronic respiratory failure with hypoxia (07/04/22) Subjective Subjective Patient irritable, on nasal cannula he does appear to be slowly improving that did have an episode where he dipped to 88% and had to go back on high flow Objective Data Objective Data Vital Signs: Vital Signs Temp Pulse Resp BP Pulse Ox O2 Del Method O2 Flow Rate 97.8 F 75 20 H 126/73 H 93 Nasal Cannula 4 07/13/22 08:41 07/13/22 11:12 07/13/22 11:12 07/13/22 08:41 07/13/22 11:12 07/13/22 11:12 07/13/22 11:12 FiO2 40 07/11/22 07:24 Oxygen Flow Rate (L/min) 4 Oxygen Delivery Method Nasal Cannula Weight: 78.6 kg Body Mass Index (BMI) 23.5 Intake & Output: Intake and Output for Last 24 Hours 07/11/22 07/12/22 07/13/22 23:59 23:59 23:59 Intake Total 1580 / 1580 1450 / 1450 Output Total 1650 / 1800 1550 / 1550 200 / 200 Balance -70 / -220 -100 / -100 -200 / -200 Lab / Micro Data Result Diagrams: 07/13/22 05:14 07/13/22 05:14 Labs: Laboratory Results - last 24 hr 07/13/22 05:14: WBC 12.7 H, RBC 3.96 L, Hgb 12.6 L, Hct 41.9, MCV 105.8 H, MCH 31.8, MCHC 30.1 L, RDW Std Deviation 51.8 H, RDW Coeff of Joseluis 13.4, Plt Count 161, MPV 10.9, Neut % (Auto) Not Reportable, Absolute Neuts (auto) 10.2 H, Absolute Lymphs (auto) 0.38 L, Total Counted 100, Neutrophils % (Manual) 79 H, Band Neutrophils % 1, Lymphocytes % (Manual) 3 L, Monocytes % (Manual) 3, Eosinophils % (Manual) 1, Metamyelocytes % 3 H, Myelocytes % 9 H, Promyelocytes % 1 H, Diff Path Review June, Platelet Estimate ADEQUATE, RBC Morphology NORM C+C 07/13/22 05:14: PT 26.1 H, INR 2.4 07/13/22 05:14: Sodium 142, Potassium 4.2, Chloride 90 L, Carbon Dioxide > 45.0 H*, Anion Gap TNP, BUN 56 H, Creatinine 0.98, Estim Creat Clear Calc 91.28, Est GFR (MDRD) Af Amer 101, Est GFR (MDRD) Non-Af 84, BUN/Creatinine Ratio 57.2 H, Glucose 128 H, Calcium 8.5, Total Bilirubin 0.20, AST 52 H, ALT 93 H, Alkaline Phosphatase 133 H, Total Protein 6.3 L, Albumin 2.5 L, Globulin 3.8, Albumin/Globulin Ratio 0.7 L Micro: Microbiology 07/04/22 15:45 Blood Culture (Wb) - No Site/Description Given Blood Culture - Final No growth in 5 days. 07/04/22 15:27 Blood Culture (Wb) - Right Hand Blood Culture - Final No growth in 5 days. 07/04/22 15:15 Mucosa - Nose Respiratory Panel (PCR) - Final 07/04/22 15:27 Urine, Random Legionella Antigen - Final 07/04/22 15:27 Urine, Random Streptococcus pneumoniae Antigen (M - Final 07/04/22 15:15 Nasal Secretion SARS-CoV-2 & FLU Antigen (Rapid) - Final Physical Exam Narrative General: Awake and alert HEENT: Atraumatic, normocephalic Eyes: Anicteric, normal conjunctiva, extraocular movements grossly intact Neck: Supple Respiratory: Stable work of breathing, no wheezes, on nasal cannula today Cardiovascular: Regular rate GI: Soft, nontender, nondistended Extremities: No edema Musculoskeletal: Moving all extremities Neuro: No overt focal neurological deficits Skin: No rashes appreciated Psych: Uncooperative and irritable Assessment & Plan Assessment/Plan (1) Acute and chronic respiratory failure with hypoxia: (2) COPD exacerbation: (3) Atrial fibrillation: (4) Aortic valve disease: (5) Pneumonia: (6) ANGEL (obstructive sleep apnea): (7) Acute and chronic respiratory failure with hypoxia: (8) Epilepsy: QUALIFIERS: Epilepsy type: unspecified Intractability: not intractable Status epilepticus: without status epilepticus Qualified Code(s): G40.909 - Epilepsy, unspecified, not intractable, without status epilepticus PLAN: Plan #Acute on chronic hypoxic respiratory failure due to acute on chronic end-stage COPD exacerbation as well as probable CAP with underlying moderate pulmonary htn and ANGEL w/ difficulty w/ NIPPV compliance -On 5 to 6 L O2 at baseline with history of end-stage COPD. Triple inhaler therapy at baseline and does not use his home NIPPV as prescribed which likely contributed however did also have x-ray suspicious for left lower lobe infiltrate. -Titrate oxygen to maintain saturation above 90%. On IV ceftriaxone and azithromycin -Dependent on Airvo and BiPAP. Continue IV Solu-Medrol and breathing treatments, pulmonology on board. On Rocephin and azithromycin. Remains on Lasix -Troponins x3 were not elevated. -Urine for strep and Legionella negative. -Respiratory panel and COVID/flu negative -2D echo showed EF Of 50% and moderate pulmonary hypertension and mechanical aortic valve not well visualized and mildly enlarged left atrium, as well as mild global right ventricular dysfunction. -07/08: Remains on IV steroids and ipratropium nebs, albuterol held due to his tachycardia. Lasix dose increased. Prognosis seems poor especially given noncompliance with NIPPV -07/09: Continues to not tolerate NIPPV but has not been willing to change goals of care, bicarb slowly increasing, may be retaining some amount of CO2 given he is not using NIPPV though cannot rule out Lasix/slightly volume down as a contributing factor. Do not think a blood gas would casino change attendant at this point given his refusal for BiPAP but can consider it if any changes in mental status or rapid deterioration. continue on Airvo, continue IV steroids and continue Lasix. Pulm following -07/10: Last dose of azithromycin today, Rocephin for 2 more days. Continue nebs and Lasix. Wean Airvo as tolerated -07/11: Remains on Airvo, very agitated and irritable today and [facility] to go back to [facility] however given he is dependent on Airvo do not think that this is a possibility. Remains on IV steroids,If heart rate continues to be well controlled can consider adding albuterol as this may help breathing further. Additionally remains on IV Lasix twice daily creatinine stable but bicarb going up which is likely multifactorial, slight increase in BUN from yesterday, may need to consider decreasing in near future -07/12: De-escalated to oral steroids, discussed with Dr. Vega and placed him on 40 p.o. daily. We will attempt to transition oral Lasix as his BUN and bicarb continue to increase and he is not losing any weight and respiratory status improved but will continue on high-dose just by mouth and wean as tolerated -07/13: Seems to be tolerating the oral prednisone, may need taper of this instead of 5-day course given his prolonged high-dose steroids inpatient. Today will be first full day of oral Lasix, getting closer to being able to safely discharge patient back to [facility] but will need to verify he can remain on nasal cannula and tolerate oral medications #History of aortic valve disease s/p mechanical valve replacement 2012/s/p VSD repair: -Has mechanical bileaflet aortic valve prosthesis per cardiology office note 06/27/22 -On Coumadin at home but had a supratherapeutic INR so this was initially held -INR goal is documented as 2.5-3.5 likely d/t bileaflet valve but has hx of prior VTE and additionally afib. -Coumadin resumed yesterday -INR monitored and managed on outpatient basis by Franklyn Matson -07/08: Discussed w/ pulm. Will hold for 24 hours. Starting tomorrow pending AM INR- appears previous weekly dose of Coumadin was 32, given the RE-LY trial algorithm will decrease by 15 %/week which roughly equilibrates to 4 mg daily however given jump from 2-2.8 in 1 day will resume Coumadin at 3 and can titrate further as indicated. Continue to monitor INR daily -07/09: INR 3.6, continue to hold Coumadin and monitor INR daily -07/10: INR 2.6 today, will resume Coumadin at a lower dose -07/11: Continue to monitor INR and adjust Coumadin as needed #Afib w/ RVR -Was on amio and cardizem gtt -On metoprolol 50mg BID and Cardizem and amio po added by cardiology 07/07 -Echo this admission with EF of 50% and moderate pulmonary hypertension with mild global right ventricular dysfunction and mechanical aortic valve not well visualized -AC w/ coumadin -Do suspect some low grade tachycardia may remain given #1 as it is likely compensatory but will need to monitor for recurrence of RVR -07/08: Cardiology following, on Cardizem and Amio as well as metoprolol -07/11: Doing much better on current medication regimen #Seizure disorder -On Depakote and phenytoin -07/10: Given patient being more tired over the past 2 days will order Depakote level, ammonia, LFTs. We will attempt to order phenytoin level -07/11: LFTs very slightly elevated, will continue to trend and hold atorvastatin, Depakote level is not elevated neither his ammonia #History of DVT: On Coumadin as above #Hyperlipidemia: On statin DVT prophylaxis: scds Charges/Coding Visit Charges Inpatient E&M: 67550 Subs Hosp L2
[2022-07-13] MEDS: Atorvastatin Calcium 20 MG Tablet PO (21:05)
[2022-07-13] MEDS: Benzonatate 100 MG Capsule PO (21:09)
[2022-07-14] VITALS (14 sets, daily range): BP systolic 93–130; BP diastolic 64–84; PULSE 69–99; RESP 16–20; TEMP 36.1–36.6; O2SAT 90–99; BMI 23.6
[2022-07-14] MEDS: Ondansetron 4 MG/2 ML Vial IV (01:22)
[2022-07-14] MEDS: 0.9% Saline Lock 10 ML Syringe IV ×3 (01:22→18:22)
[2022-07-14] MEDS: Phenytoin Na 100 MG Capsule PO ×3 (05:00→21:01)
[2022-07-14] MEDS: Divalproex Sodium 125 MG Tablet 250 MG PO ×3 (05:00→21:00)
[2022-07-14] MEDS: dilTIAZem 60 MG Tablet PO ×2 (05:00→11:54)
[2022-07-14 05:57] LABS: International Normalized Ratio 2.6
[2022-07-14 06:49] LABS: ALB/GLOB Ratio 0.6 RATIO (0.9-2.4); AST(SGOT) 40 U/L (15-37); Alanine Aminotransfer ALT/SGPT 80 U/L (16-61); Albumin, Serum 2.5 g/dL (3.2-5.0); Alkaline Phosphatase 133 U/L (45-117); BUN 53 mg/dL (7-18); BUN/Creat Ratio 53.3 RATIO (10-20); Calcium,Total 8.2 mg/dL (8.5-10.1); Carbon Dioxide > 45.0 mmol/L (21.0-32.0); Chloride 87 mmol/L (98-107); EST Glomerular Filtration Rate 82 mL/min (>60); Est Glom Filt Rate - Afr Amer 99 mL/min (>60); Estimated Creatinine Clearance 89.46 ml/min; Globulin 3.9 g/dL (2.2-4.2); Glucose 143 mg/dL (74-106); Potassium 4.2 mmol/L (3.5-5.1); Protein, Total 6.4 g/dL (6.4-8.2); Sodium Level 139 mmol/L (136-145)
[2022-07-14] MEDS: Ipratropium 0.5 MG/2.5 ML SOLUTION INHALATION ×5 (07:07→22:49)
--- NOTE | 2022-07-14 07:46 | PN.HOSP_ITS ---
Reason for Visit Reason for Visit: Diagnoses Epilepsy, unspecified, not intractable, without status epilepticus (07/04/22) Obstructive sleep apnea (adult) (pediatric) (07/04/22) Nonrheumatic aortic valve disorder, unspecified (07/04/22) Unspecified atrial fibrillation (07/04/22) Pneumonia, unspecified organism (07/04/22) Chronic obstructive pulmonary disease with (acute) exacerbation (07/04/22) Acute and chronic respiratory failure with hypoxia (07/04/22) Subjective Subjective Follow-up for acute on chronic hypoxic respiratory failure Objective Data Objective Data Vital Signs: Vital Signs Temp Pulse Resp BP Pulse Ox O2 Del Method O2 Flow Rate 96.9 F L 69 19 H 93/64 96 High Flow 5 07/14/22 03:11 07/14/22 03:11 07/14/22 03:11 07/14/22 03:11 07/14/22 03:11 07/14/22 03:11 07/14/22 03:11 FiO2 40 07/11/22 07:24 Oxygen Flow Rate (L/min) 5 Oxygen Delivery Method High Flow Weight: 173 lb 11.588 oz Body Mass Index (BMI) 23.6 Intake & Output: Intake and Output for Last 24 Hours 07/12/22 07/13/22 07/14/22 23:59 23:59 23:59 Intake Total 1450 / 1450 1200 / 1440 240 / 240 Output Total 1550 / 1550 600 / 1100 750 / 750 Balance -100 / -100 600 / 340 -510 / -510 Lab / Micro Data Result Diagrams: 07/13/22 05:14 07/14/22 05:27 Labs: Laboratory Results - last 24 hr 07/14/22 05:27: PT 28.0 H, INR 2.6 07/14/22 05:27: Sodium 139, Potassium 4.2, Chloride 87 L, Carbon Dioxide > 45.0 H*, Anion Gap TNP, BUN 53 H, Creatinine 1.00, Estim Creat Clear Calc 89.46, Est GFR (MDRD) Af Amer 99, Est GFR (MDRD) Non-Af 82, BUN/Creatinine Ratio 53.3 H, Glucose 143 H, Calcium 8.2 L, Total Bilirubin 0.20, AST 40 H, ALT 80 H, Alkaline Phosphatase 133 H, Total Protein 6.4, Albumin 2.5 L, Globulin 3.9, Albumin/Globulin Ratio 0.6 L Micro: Microbiology 07/04/22 15:45 Blood Culture (Wb) - No Site/Description Given Blood Culture - Final No growth in 5 days. 07/04/22 15:27 Blood Culture (Wb) - Right Hand Blood Culture - Final No growth in 5 days. 07/04/22 15:15 Mucosa - Nose Respiratory Panel (PCR) - Final 07/04/22 15:27 Urine, Random Legionella Antigen - Final 07/04/22 15:27 Urine, Random Streptococcus pneumoniae Antigen (M - Final 07/04/22 15:15 Nasal Secretion SARS-CoV-2 & FLU Antigen (Rapid) - Final Physical Exam Narrative Seen and examined. Patient is still short of breath. Does not move out of the bed. Patient is half-way resident. On BiPAP intermittently currently on 5 L of oxygen high flow. Physical exam General: Alert, Oriented x3, Cooperative HEENT: Atraumatic, PERRLA, EOMI, Normocephalic Oral: No Gingival or Mucosal Lesions/ Ulcerations Neck: Supple, No JVD, Negative Carotid Bruits Lungs: Air entry diminished in bilateral lung bases. No crepitation/rhonchi Cardiovascular: Status post CABG. AVR and mitral valve repair. Abdomen: Bowel Sounds Present, Soft, Non Tender, Non-Distended : No renal angle tenderness. No suprapubic tenderness. Extremities: Bilateral leg edema, Capillary Refill Less than 3 Seconds Skin: No rashes, No breakdown Musculoskeletal: No Tenderness to Palpation of Joints or Extremities. Moderate muscle atrophy. ROM restricted. Neurological: Cranial nerves II-XII grossly intact, DTR 2+/4 and Symmetrical, No acute neurodeficit. Psych/Mental Status: Flat affect. Assessment & Plan Assessment/Plan (1) Acute and chronic respiratory failure with hypoxia: (2) COPD exacerbation: (3) Atrial fibrillation: (4) Aortic valve disease: (5) Pneumonia: PLAN: Plan #Acute on chronic hypoxic respiratory failure due to acute on chronic end-stage COPD exacerbation as well as probable CAP with underlying moderate pulmonary htn and ANGEL w/ difficulty w/ NIPPV compliance -On 5 to 6 L O2 at baseline with history of end-stage COPD.? Triple inhaler therapy at baseline and does not use his home NIPPV as prescribed which likely contributed however did also have x-ray suspicious for left lower lobe infiltrate. -Titrate oxygen to maintain saturation above 90%.? On IV ceftriaxone and azithromycin -Dependent on Airvo and BiPAP.? Continue IV Solu-Medrol and breathing treatments, pulmonology on board.? On Rocephin and azithromycin.? Remains on Lasix -Troponins x3 were not elevated. -Urine for strep and Legionella negative. -Respiratory panel and COVID/flu negative -2D echo showed EF Of 50% and moderate pulmonary hypertension and mechanical aortic valve not well visualized and mildly enlarged left atrium, as well as mild global right ventricular dysfunction. 07/14: On high-dose burst prednisone for 5-day course. On oral Lasix. Patient was seen by Dr. Ku who signed off. On high flow oxygen and intermittently BiPAP. Patient completed antibiotic azithromycin and Rocephin. Patient was on BiPAP tapered to Airvo high flow oxygen. #History of aortic valve disease s/p mechanical valve replacement 2012/s/p VSD repair: -Has mechanical bileaflet aortic valve prosthesis per cardiology office note 06/27/2207/14: INR 2.6. Warfarin was held before for supratherapeutic INR and resumed yesterday #Afib w/ RVR -Was on amio and cardizem gtt -On metoprolol 50mg BID and Cardizem and amio po added by cardiology 07/07 07/14: Finishing Lab Technician followed the patient. On Cardizem amiodarone and metoprolol.-Echo this admission with EF of 50% and moderate pulmonary hypertension with mild global right ventricular dysfunction and mechanical aortic valve not well visualized #Seizure disorder -On Depakote and phenytoin -07/10: Given patient being more tired over the past 2 days will order Depakote level, ammonia, LFTs.? We will attempt to order phenytoin level -07/11: LFTs very slightly elevated, will continue to trend and hold atorvasta tin, Depakote level is not elevated neither his ammonia 07/14: #History of DVT: On Coumadin as above #Hyperlipidemia: On statin DVT prophylaxis: scds Charges/Coding Visit Charges Inpatient E&M: 93977 Subs Hosp L2
[2022-07-14 08:58] LABS: Pathologist Review Reviewed
[2022-07-14 09:02] LABS: Pathologist Review Reviewed
--- NOTE | 2022-07-14 09:18 | CASEMGMT ---
Discharge Planning Updates sent to [facility] via [facility]. Cleopatra Salazar
[2022-07-14] MEDS: Metoprolol Tartrate 50 MG Tablet PO ×2 (10:00→21:01)
[2022-07-14] MEDS: guaiFENesin 1,200 MG Tablet 1200 MG PO ×2 (10:00→21:01)
[2022-07-14] MEDS: Furosemide 40 MG Tablet 60 MG PO ×2 (10:01→17:38)
[2022-07-14] MEDS: Ensure Plus High Protein 120 ML LIQUID PO ×3 (10:01→17:41)
[2022-07-14] MEDS: predniSONE 20 MG Tablet 40 MG PO (10:01)
[2022-07-14] MEDS: FLUoxetine 10 MG Capsule PO (10:01)
[2022-07-14] MEDS: Fluoxetine HCl 40 MG CAPSULE PO (10:01)
[2022-07-14] MEDS: Amiodarone 200 MG Tablet PO (10:01)
[2022-07-14 12:39] LABS: Pathologist Review Reviewed
[2022-07-14 12:42] LABS: Pathologist Review Reviewed
[2022-07-14] MEDS: dilTIAZem 60 MG CAP.SR.12H 180 MG PO (21:00)
[2022-07-14] MEDS: Atorvastatin Calcium 20 MG Tablet PO (21:01)
--- NOTE | 2022-07-14 21:26 | CPS ---
Patient refused PEP therapy at this time
[2022-07-15] VITALS (8 sets, daily range): BP systolic 98–114; BP diastolic 60–75; PULSE 67–75; RESP 16–18; TEMP 36.1–36.8; O2SAT 91–96; BMI 23.8
[2022-07-15] MEDS: Phenytoin Na 100 MG Capsule PO ×2 (05:06→14:15)
[2022-07-15] MEDS: Divalproex Sodium 125 MG Tablet 250 MG PO ×2 (05:06→14:15)
[2022-07-15 06:14] LABS: International Normalized Ratio 3.5; Prothrombin Time (Protime)PT. 35.8 SECONDS (11.7-14.9)
[2022-07-15 06:19] LABS: ALB/GLOB Ratio 0.7 RATIO (0.9-2.4); AST(SGOT) 41 U/L (15-37); Alanine Aminotransfer ALT/SGPT 76 U/L (16-61); Albumin, Serum 2.6 g/dL (3.2-5.0); Alkaline Phosphatase 125 U/L (45-117); BUN 53 mg/dL (7-18); BUN/Creat Ratio 54.2 RATIO (10-20); Carbon Dioxide > 45.0 mmol/L (21.0-32.0); Chloride 89 mmol/L (98-107); Creatinine, Serum 0.98 mg/dL (0.70-1.30); EST Glomerular Filtration Rate 84 mL/min (>60); Est Glom Filt Rate - Afr Amer 101 mL/min (>60); Estimated Creatinine Clearance 91.28 ml/min; Globulin 3.6 g/dL (2.2-4.2); Glucose 139 mg/dL (74-106); Potassium 4.4 mmol/L (3.5-5.1); Protein, Total 6.2 g/dL (6.4-8.2); Sodium Level 140 mmol/L (136-145)
[2022-07-15] MEDS: Ipratropium 0.5 MG/2.5 ML SOLUTION INHALATION ×2 (06:39→10:40)
--- NOTE | 2022-07-15 08:41 | PCM.TXEXTCAR ---
Diet Diet Order/Speech Therapy: 07/04/22 14:55 Diet: Cardiac - Heart Healthy Food consistency:: Regular Liquid Consistency:: Regular/Thin Dietary Modifications:: Sodium Restricted Routine Orders/Code Status Suppository Type: Dulcolax 10mg Suppository Frequency: Daily PRN Routine Lab Work: INR (INR daily until INR stable) Code Status: DNRCC-A Therapies Weight Bearing: Weight bearing as tolerated Extremity Affected:: Bilateral Lower Physical Therapy: Eval and Treat Occupational Therapy: Eval and Treat Speech Therapy: Eval and Treat Problem/Diagnosis (1) Acute and chronic respiratory failure with hypoxia: Status: Chronic Code(s): J96.21 - Acute and chronic respiratory failure with hypoxia (2) COPD exacerbation: Status: Chronic Code(s): J44.1 - Chronic obstructive pulmonary disease with (acute) exacerbation (3) Atrial fibrillation: Status: Acute Code(s): I48.91 - Unspecified atrial fibrillation (4) Aortic valve disease: Status: Acute Code(s): I35.9 - Nonrheumatic aortic valve disorder, unspecified Comment: mechanical heart valve (5) Pneumonia: Status: Acute Code(s): J18.9 - Pneumonia, unspecified organism Plan #Acute on chronic hypoxic respiratory failure due to acute on chronic end-stage COPD exacerbation as well as probable CAP with underlying moderate pulmonary htn and ANGEL w/ difficulty w/ NIPPV compliance -On 5 to 6 L O2 at baseline with history of end-stage COPD.? Triple inhaler therapy at baseline and does not use his home NIPPV as prescribed which likely contributed however did also have x-ray suspicious for left lower lobe infiltrate. -Titrate oxygen to maintain saturation above 90%.? On IV ceftriaxone and azithromycin -Dependent on Airvo and BiPAP.? Continue IV Solu-Medrol and breathing treatments, pulmonology on board.? On Rocephin and azithromycin.? Remains on Lasix -Troponins x3 were not elevated. -Urine for strep and Legionella negative. -Respiratory panel and COVID/flu negative -2D echo showed EF Of 50% and moderate pulmonary hypertension and mechanical aortic valve not well visualized and mildly enlarged left atrium, as well as mild global right ventricular dysfunction. 07/14: On high-dose burst prednisone for 5-day course. On oral Lasix. Patient was seen by Dr. Ku who signed off. On high flow oxygen and intermittently BiPAP. Patient completed antibiotic azithromycin and Rocephin. Patient was on BiPAP tapered to Airvo high flow oxygen. #History of aortic valve disease s/p mechanical valve replacement 2012/s/p VSD repair: -Has mechanical bileaflet aortic valve prosthesis per cardiology office note 06/27/2207/14: INR 2.6. Warfarin was held before for supratherapeutic INR and resumed yesterday #Afib w/ RVR -Was on amio and cardizem gtt -On metoprolol 50mg BID and Cardizem and amio po added by cardiology 07/07 07/14: [employer] followed the patient. On Cardizem amiodarone and metoprolol.-Echo this admission with EF of 50% and moderate pulmonary hypertension with mild global right ventricular dysfunction and mechanical aortic valve not well visualized #Seizure disorder -On Depakote and phenytoin -07/10: Given patient being more tired over the past 2 days will order Depakote level, ammonia, LFTs.? We will attempt to order phenytoin level -07/11: LFTs very slightly elevated, will continue to trend and hold atorvastatin, Depakote level is not elevated neither his ammonia 07/14: #History of DVT: On Coumadin as above #Hyperlipidemia: On statin DVT prophylaxis: scds Allergies/Procedures Done in Hospital Allergies No Known Allergies Allergy (Verified 06/27/22 14:44) Type of Care/Length of Stay Estimated LOS: Convalescent Care Less Than 30 days Type of Care Needed: Skilled Rehab Potential: Good Prognosis: Good Additional Orders/Day of Discharge Day of Discharge: 07/15/22 Dietary and Speech Recommendations Dietitian Recommendations/Changes: Continue Cardiac/sodium-restricted diet; fluid restriction as needed per physician. Continue to provide 4 oz ensure plus high protein 3x/day with medpass given increased energy expenditure due to respiratory status. Discharge Plan Admission Admit Date/Time: 07/04/22 14:40 Primary Reason for Your Visit: Shortness of breath Attending Provider: Wyatt Hay Primary Care Provider: Jason Leal Consulting Providers: Robbin Naqvi ; Mark Marlow ; Moi Vega ; Deion Meeks ; Yenny Tom NP ; Ann Suarez ; Leticia Hollins ; Pascual Peters Instructions Additional Instructions / Restrictions: - Please follow-up with your wood cabinetmaker upon discharge. Please call their office to schedule hospital follow-up appointment upon discharge. Also qualify for pulmonary rehab, this referral can be placed through your primary care physician or your wood cabinetmaker Discharge Orders/Prescriptions Prescriptions: New fluoxetine 40 mg Capsule 40 mg PO DAILY Qty: 0 0RF warfarin [Jantoven] 3 mg Tablet See Rx Instructions .ROUTE .COMPLEX Qty: 0 0RF Rx Instructions: 3 mg orally On Thursday and Thursday at 5 PM Hold if INR more than 3.5. furosemide 40 mg Tablet 60 mg PO BIDLX Qty: 0 0RF amiodarone 200 mg Tablet 200 mg PO DAILY Qty: 0 0RF prednisone 20 mg Tablet 40 mg PO BREAKFAST 4 Days Qty: 0 0RF benzonatate 100 mg Capsule 100 mg PO Q4H PRN PRN (Reason: COUGH) Qty: 0 0RF metoprolol tartrate 50 mg Tablet 50 mg PO BID Qty: 0 0RF diltiazem HCl 60 mg Capsule,Extended Release 12 Hr 180 mg PO Q12 Qty: 0 0RF ipratropium bromide 0.02 % Solution 0.5 mg inhalation Q4H.RT PRN (Reason: sob) Qty: 0 0RF Continued aspirin [Adult Aspirin Regimen] 81 mg tablet,delayed release (DR/EC) 81 mg PO DAILY multivitamin [Multiple Vitamins] tablet 1 tab PO QDAY alum-mag hydroxide-simeth 200-200-20 mg/5 mL suspension 30 ml PO Q4H PRN (Reason: Heartburn) ascorbate calcium (vitamin C) 500 mg tablet 500 mg PO DAILY melatonin 3 mg capsule 5 mg PO HS PRN (Reason: Insomnia) albuterol sulfate 90 mcg/actuation HFA aerosol inhaler 2 puff inhalation Q4H PRN (Reason: shortness of breath or wheezing) Qty: 8.5 11RF Rx Instructions: administer with spacer atorvastatin 20 mg tablet 20 mg PO DAILY divalproex [Depakote] 125 mg tablet,delayed release (DR/EC) 250 mg PO TID Zyrtec 10 mg capsule 10 mg PO DAILY PRN cimetidine 200 mg tablet 400 mg PO QACHS folic acid 1 mg tablet 1 mg PO DAILY acetaminophen [Tylenol] 325 mg Tablet 650 mg PO Q4H PRN PRN (Reason: Fever, pain 1-12/09) Qty: 0 0RF sennosides-docusate sodium [Stool Softener-Stimulant Laxat] 8.6-50 mg Tablet 2 tab PO BID PRN PRN (Reason: Constipation) Qty: 0 0RF ferrous sulfate [FeroSul] 325 mg (65 mg iron) Tablet 325 mg PO DAILY@1200 Qty: 0 0RF cyanocobalamin (vitamin B-12) 1,000 mcg Tablet 1,000 mcg PO DAILY Trelegy Ellipta 200-62.5-25 mcg Blister With Device 1 inh INHALATION DAILY Mucus Relief ER 1,200 mg tablet extended release 12hr 600 mg PO BID cholecalciferol (vitamin D3) [Vitamin D3] 50 mcg (2,000 unit) capsule 2,000 mcg PO DAILY warfarin 4 mg Tablet 4 mg PO QMWF 30 Days Qty: 0 0RF Rx Instructions: Hold if INR more than 3.5 phenytoin sodium extended [Dilantin Extended] 100 mg capsule 100 mg PO TID Qty: 90 3RF Discontinued fluoxetine [Prozac] 40 mg capsule 50 mg PO DAILY metoprolol tartrate 25 mg tablet 37.5 mg PO BID Rx Instructions: 1.5 tablets bid ipratropium-albuterol 0.5 mg-3 mg(2.5 mg base)/3 mL Solution For Nebulization 3 ml inhalation Q4HWA.RT PRN (Reason: SOB) Qty: 0 0RF warfarin 5 mg Tablet 5 mg PO SUTUTHSA furosemide 40 mg tablet 40 mg PO DAILY Qty: 90 3RF Rx Instructions: Hold if creatinine is more than 30% more than baseline Referrals / Follow Up: Robbin Naqvi MD [Med Staff - Active Staff] - Within 2 Weeks (If does not want to follow-up with primary wood cabinetmaker) Jason Leal DO [Primary Care Provider] - Disposition Disposition (needs filled in before D/C Order can be placed[facility]
[2022-07-15] MEDS: Ensure Plus High Protein 120 ML LIQUID PO ×2 (09:12→12:19)
[2022-07-15] MEDS: Furosemide 40 MG Tablet 60 MG PO (09:12)
[2022-07-15] MEDS: predniSONE 20 MG Tablet 40 MG PO (09:13)
[2022-07-15] MEDS: dilTIAZem 60 MG CAP.SR.12H 180 MG PO (09:13)
[2022-07-15] MEDS: guaiFENesin 1,200 MG Tablet 1200 MG PO (09:13)
[2022-07-15] MEDS: Amiodarone 200 MG Tablet PO (09:13)
[2022-07-15] MEDS: FLUoxetine 10 MG Capsule PO (09:14)
[2022-07-15] MEDS: Metoprolol Tartrate 50 MG Tablet PO (09:15)
[2022-07-15] MEDS: Fluoxetine HCl 40 MG CAPSULE PO (09:15)
--- NOTE | 2022-07-15 09:29 | CASEMGMT ---
Discharge Planning. Message sent via [employer] to Franklyn Matson regarding patients O2 needs. Awaiting response. Cleopatra Salazar
--- NOTE | 2022-07-15 10:19 | CASEMGMT ---
Discharge Planning Franklyn Matson is able to provide needed O2. Notified that he will return today. Cleopatra Salazar
--- NOTE | 2022-07-15 11:23 | PCM.DC.SUM ---
Providers Date of Admission: 07/04/22 Date of Discharge: 07/15/22 Primary Care Physician: Dr. Jason Leal, Consultations 07/04/22 16:59 Consult: Cattle And Wheat Farmer / Pulmonary Medicine Routine Consulting Provider: [facility] Reason for Consult: COPD exacerbation EMERGENT Consult: No Notified: Yes Date Notified: 07/04/22 Time Notified: 16:59 Method of Notification: Verbal 07/06/22 15:27 Consult: Cardiology Routine Consulting Provider: Pascual Peters Reason for Consult: A-fib RVR EMERGENT Consult: Yes MD Notified: Yes Date Notified: 07/06/22 Time Notified: 15:27 Method of Notification: Verbal Reason For Visit: COPD EXACERBATION Diagnosis Discharge Diagnosis (1) Acute and chronic respiratory failure with hypoxia: Status: Chronic Code(s): J96.21 - Acute and chronic respiratory failure with hypoxia (2) COPD exacerbation: Status: Chronic Code(s): J44.1 - Chronic obstructive pulmonary disease with (acute) exacerbation (3) Atrial fibrillation: Status: Acute Code(s): I48.91 - Unspecified atrial fibrillation (4) Aortic valve disease: Status: Acute Code(s): I35.9 - Nonrheumatic aortic valve disorder, unspecified (5) Pneumonia: Status: Acute Code(s): J18.9 - Pneumonia, unspecified organism Plan 56-year-old gentleman was admitted with shortness of breath, transferred from outside hospital. Patient short of breath for past couple days. Fever also. Patient diagnosed with possible pneumonia and received prednisone, furosemide IV Rocephin and 100 mg IV doxycycline. Patient was put on air Vo and was transferred. #Acute on chronic hypoxic respiratory failure due to acute on chronic end-stage COPD exacerbation as well as probable CAP with underlying moderate pulmonary htn and ANGEL w/ difficulty w/ NIPPV compliance -On 5 to 6 L O2 at baseline with history of end-stage COPD.? Triple inhaler therapy at baseline and does not use his home NIPPV as prescribed which likely contributed however did also have x-ray suspicious for left lower lobe infiltrate. -Titrate oxygen to maintain saturation above 90%.? On IV ceftriaxone and azithromycin -Dependent on Airvo and BiPAP.? Continue IV Solu-Medrol and breathing treatments, pulmonology on board.? On Rocephin and azithromycin.? Remains on Lasix -Troponins x3 were not elevated. -Urine for strep and Legionella negative. -Respiratory panel and COVID/flu negative -2D echo showed EF Of 50% and moderate pulmonary hypertension and mechanical aortic valve not well visualized and mildly enlarged left atrium, as well as mild global right ventricular dysfunction. 07/14: On high-dose burst prednisone for 5-day course. On oral Lasix. Patient was seen by Dr. Ku who signed off. On high flow oxygen and intermittently BiPAP. Patient completed antibiotic azithromycin and Rocephin. Patient was on BiPAP tapered to Airvo high flow oxygen. 07/15: Patient is discharged on burst therapy of prednisone for 4 more days, oxygen, ipratropium. Patient completed antibiotics. #History of aortic valve disease s/p mechanical valve replacement 2012/s/p VSD repair: -Has mechanical bileaflet aortic valve prosthesis per cardiology office note 06/27/2207/14: INR 2.6. Warfarin was held before for supratherapeutic INR and resumed yesterday 07/15: INR is 3.5.Hold warfarin today. Warfarin dose decreased to 3 mg On Thursday and Thursday and 4 mg on Thursday and Thursday,Starting from 07/16/2022. Hold if INR is more than 3.5 with Daily monitoring of INR. #Afib w/ RVR -Was on amio and cardizem gtt -On metoprolol 50mg BID and Cardizem and amio po added by cardiology 07/07 07/14: [employer] followed the patient. On Cardizem amiodarone and metoprolol.-Echo this admission with EF of 50% and moderate pulmonary hypertension with mild global right ventricular dysfunction and mechanical aortic valve not well visualized 07/15: Patient is on Cardizem amiodarone and metoprolol.Patient in A-fib #Seizure disorder -On Depakote and phenytoin -07/10: Given patient being more tired over the past 2 days will order Depakote level, ammonia, LFTs.? We will attempt to order phenytoin level -07/11: LFTs very slightly elevated, will continue to trend and hold atorvastatin, Depakote level is not elevated neither his ammonia 07/15 Consult since patient has followed Dr. Baddour in the past. Continue follow-up. #History of DVT: On Coumadin as above #Hyperlipidemia: On statin DVT prophylaxis: scds Discharge medication reconciliation done. Discharge follow-up instructions completed. Discharge process discussed with the patient and all questions were answered to patient's satisfaction. Total time spent, exact 35 minutes on discharge meds reconciliation, examination, coordination of care with nurses and ancillary staff, review of imaging and blood test and discussion with the patient on follow-up instructions. Medications at Discharge Home Medications aspirin 81 mg tablet,delayed release (Adult Aspirin Regimen) 81 mg PO DAILY heart health 03/17/17 multivitamin (Multiple Vitamins tablet) 1 tab PO QDAY supplement 03/17/17 aluminum-mag hydroxide-simethicone 200 mg-200 mg-20 mg/5 mL oral susp 30 ml PO Q4H PRN Heartburn 04/18/20 ascorbate calcium (vitamin C) 500 mg tablet 500 mg PO DAILY supplement 04/18/20 melatonin 3 mg capsule 5 mg PO HS PRN Insomnia 04/18/20 acetaminophen 325 mg tablet (Tylenol) 650 mg PO Q4H PRN PRN Fever, pain 1-12/09 #0 tabs 04/03/21 albuterol sulfate 90 mcg/actuation aerosol inhaler 2 puff inhalation Q4H PRN shortness of breath or wheezing #8.5 grams 09/19/21 ferrous sulfate 325 mg (65 mg iron) tablet (FeroSul) 325 mg PO DAILY@1200 #0 tabs 10/04/21 sennosides 8.6 mg-docusate sodium 50 mg tablet (Stool Softener-Stimulant Laxative) 2 tab PO BID PRN PRN Constipation #0 tabs 10/04/21 cyanocobalamin (vitamin B-12) 1,000 mcg tablet 1,000 mcg PO DAILY 10/05/21 fluticasone fur. 200 mcg-umeclid 62.5 mcg-vilant 25 mcg inhalat.powder (Trelegy Ellipta) 1 inh inhalation DAILY 10/05/21 guaifenesin 1,200 mg tablet, extended release 12 hr (Mucus Relief ER) 600 mg PO BID 10/05/21 phenytoin sodium extended 100 mg capsule (Dilantin Extended) 100 mg PO TID seizures #90 caps 01/21/22 atorvastatin 20 mg tablet 20 mg PO DAILY 04/29/22 cetirizine 10 mg capsule (Zyrtec) 10 mg PO DAILY PRN 04/29/22 divalproex 125 mg tablet,delayed release (Depakote) 250 mg PO TID 04/29/22 cimetidine 200 mg tablet 400 mg PO QACHS 06/27/22 folic acid 1 mg tablet 1 mg PO DAILY 06/27/22 cholecalciferol (vitamin D3) 50 mcg (2,000 unit) capsule (Vitamin D3) 2,000 mcg PO DAILY Check with primary doctor 07/04/22 amiodarone 200 mg tablet 200 mg PO DAILY #0 tabs 07/15/22 benzonatate 100 mg capsule 100 mg PO Q4H PRN PRN COUGH #0 caps 07/15/22 diltiazem HCl 60 mg capsule,extended release 12 hr 180 mg PO Q12 #0 caps 07/15/22 fluoxetine 40 mg capsule 40 mg PO DAILY #0 caps 07/15/22 furosemide 40 mg tablet 60 mg PO BIDLX #0 tabs 07/15/22 ipratropium bromide 0.02 % solution for inhalation 0.5 mg (2.5 mL) inhalation Q4H.RT PRN sob #0 mL 07/15/22 metoprolol tartrate 50 mg tablet 50 mg PO BID #0 tabs 07/15/22 prednisone 20 mg tablet 40 mg PO BREAKFAST 4 days #0 tabs 07/15/22 warfarin 3 mg tablet (Jantoven) See Rx Instructions .Route .COMPLEX #0 tabs 07/15/22 warfarin 4 mg tablet 4 mg PO QMWF blood thinner 30 days #0 tabs 07/15/22 Physical Exam Narrative Seen and examined. Patient is still short of breath. Patient is [facility] resident and does not like to ambulate. On BiPAP intermittently currently on 5 L of oxygen high flow. Physical exam General: Alert, Oriented x3, Cooperative, BMI 23.9 kg/m? HEENT: Atraumatic, PERRLA, EOMI, Normocephalic Oral: No Gingival or Mucosal Lesions/ Ulcerations Neck: Supple, No JVD, Negative Carotid Bruits Lungs: Air entry diminished in bilateral lung bases. No crepitation/rhonchi Cardiovascular: Status post CABG. AVR and mitral valve repair. Abdomen: Bowel Sounds Present, Soft, Non Tender, Non-Distended : No renal angle tenderness. No suprapubic tenderness. Extremities: Bilateral leg edema, Capillary Refill Less than 3 Seconds Skin: No rashes, No breakdown Musculoskeletal: No Tenderness to Palpation of Joints or Extremities. Moderate muscle atrophy. ROM restricted. Neurological: Cranial nerves II-XII grossly intact, DTR 2+/4 and Symmetrical, No acute neurodeficit. Psych/Mental Status: Flat affect. Weight / BMI Weight Weight: 175 lb 14.862 oz Body Mass Index (BMI) 23.8 ABG / Lab / Microbiology Data Result Diagrams: 07/13/22 05:14 07/15/22 05:40 Laboratory: Laboratory Results - last 24 hr 07/12/22 07:05: Diff Path Review Reviewed 07/13/22 05:14: Diff Path Review Reviewed 07/15/22 05:40: Sodium 140, Potassium 4.4, Chloride 89 L, Carbon Dioxide > 45.0 H*, Anion Gap TNP, BUN 53 H, Creatinine 0.98, Estim Creat Clear Calc 91.28, Est GFR (MDRD) Af Amer 101, Est GFR (MDRD) Non-Af 84, BUN/Creatinine Ratio 54.2 H, Glucose 139 H, Calcium 8.0 L, Total Bilirubin 0.20, AST 41 H, ALT 76 H, Alkaline Phosphatase 125 H, Total Protein 6.2 L, Albumin 2.6 L, Globulin 3.6, Albumin/Globulin Ratio 0.7 L 07/15/22 05:40: PT 35.8 H, INR 3.5 Microbiology: Microbiology 07/04/22 15:45 Blood Culture (Wb) - No Site/Description Given Blood Culture - Final No growth in 5 days. 07/04/22 15:27 Blood Culture (Wb) - Right Hand Blood Culture - Final No growth in 5 days. 07/04/22 15:15 Mucosa - Nose Respiratory Panel (PCR) - Final 07/04/22 15:27 Urine, Random Legionella Antigen - Final 07/04/22 15:27 Urine, Random Streptococcus pneumoniae Antigen (M - Final 07/04/22 15:15 Nasal Secretion SARS-CoV-2 & FLU Antigen (Rapid) - Final Meaningful Use Info Meaningful Use Diagnoses (Choose all that apply): None applicable Discharge Plan Admission Admit Date/Time: 07/04/22 14:40 Primary Reason for Your Visit: Shortness of breath Attending Provider: Wyatt Hay Primary Care Provider: Jason Leal Consulting Providers: Robbin Naqvi ; Mark Marlow ; Moi Vega ; Deion Meeks ; Yenny Tom NP ; Ann Suarez ; Leticia Hollins ; Pascual Peters Instructions Additional Instructions / Restrictions: - Please follow-up with your product marketing manager upon discharge. Please call their office to schedule hospital follow-up appointment upon discharge. Also qualify for pulmonary rehab, this referral can be placed through your primary care physician or your product marketing manager Start warfarin from 07/16/2022. Discharge Orders/Prescriptions Prescriptions: New fluoxetine 40 mg Capsule 40 mg PO DAILY Qty: 0 0RF warfarin [Jantoven] 3 mg Tablet See Rx Instructions .ROUTE .COMPLEX Qty: 0 0RF Rx Instructions: 3 mg orally On Thursday and Thursday at 5 PM Hold if INR more than 3.5. furosemide 40 mg Tablet 60 mg PO BIDLX Qty: 0 0RF amiodarone 200 mg Tablet 200 mg PO DAILY Qty: 0 0RF prednisone 20 mg Tablet 40 mg PO BREAKFAST 4 Days Qty: 0 0RF benzonatate 100 mg Capsule 100 mg PO Q4H PRN PRN (Reason: COUGH) Qty: 0 0RF metoprolol tartrate 50 mg Tablet 50 mg PO BID Qty: 0 0RF diltiazem HCl 60 mg Capsule,Extended Release 12 Hr 180 mg PO Q12 Qty: 0 0RF ipratropium bromide 0.02 % Solution 0.5 mg inhalation Q4H.RT PRN (Reason: sob) Qty: 0 0RF Continued aspirin [Adult Aspirin Regimen] 81 mg tablet,delayed release (DR/EC) 81 mg PO DAILY multivitamin [Multiple Vitamins] tablet 1 tab PO QDAY alum-mag hydroxide-simeth 200-200-20 mg/5 mL suspension 30 ml PO Q4H PRN (Reason: Heartburn) ascorbate calcium (vitamin C) 500 mg tablet 500 mg PO DAILY melatonin 3 mg capsule 5 mg PO HS PRN (Reason: Insomnia) albuterol sulfate 90 mcg/actuation HFA aerosol inhaler 2 puff inhalation Q4H PRN (Reason: shortness of breath or wheezing) Qty: 8.5 11RF Rx Instructions: administer with spacer atorvastatin 20 mg tablet 20 mg PO DAILY divalproex [Depakote] 125 mg tablet,delayed release (DR/EC) 250 mg PO TID Zyrtec 10 mg capsule 10 mg PO DAILY PRN cimetidine 200 mg tablet 400 mg PO QACHS folic acid 1 mg tablet 1 mg PO DAILY acetaminophen [Tylenol] 325 mg Tablet 650 mg PO Q4H PRN PRN (Reason: Fever, pain 1-12/09) Qty: 0 0RF sennosides-docusate sodium [Stool Softener-Stimulant Laxat] 8.6-50 mg Tablet 2 tab PO BID PRN PRN (Reason: Constipation) Qty: 0 0RF ferrous sulfate [FeroSul] 325 mg (65 mg iron) Tablet 325 mg PO DAILY@1200 Qty: 0 0RF cyanocobalamin (vitamin B-12) 1,000 mcg Tablet 1,000 mcg PO DAILY Trelegy Ellipta 200-62.5-25 mcg Blister With Device 1 inh INHALATION DAILY Mucus Relief ER 1,200 mg tablet extended release 12hr 600 mg PO BID cholecalciferol (vitamin D3) [Vitamin D3] 50 mcg (2,000 unit) capsule 2,000 mcg PO DAILY warfarin 4 mg Tablet 4 mg PO QMWF 30 Days Qty: 0 0RF Rx Instructions: Hold if INR more than 3.5 phenytoin sodium extended [Dilantin Extended] 100 mg capsule 100 mg PO TID Qty: 90 3RF Discontinued fluoxetine [Prozac] 40 mg capsule 50 mg PO DAILY metoprolol tartrate 25 mg tablet 37.5 mg PO BID Rx Instructions: 1.5 tablets bid ipratropium-albuterol 0.5 mg-3 mg(2.5 mg base)/3 mL Solution For Nebulization 3 ml inhalation Q4HWA.RT PRN (Reason: SOB) Qty: 0 0RF warfarin 5 mg Tablet 5 mg PO SUTUTHSA furosemide 40 mg tablet 40 mg PO DAILY Qty: 90 3RF Rx Instructions: Hold if creatinine is more than 30% more than baseline Referrals / Follow Up: Conchita Ruiz MD [Med Staff - Active Staff] - Within 1 Month Robbin Naqvi MD [Med Staff - Active Staff] - Within 2 Weeks (If does not want to follow-up with primary product marketing manager) Jason Leal DO [Primary Care Provider] - Shantanu Castaneda MD [Non-Staff -Ordering Privileges] - Within 1 Month Disposition Disposition (needs filled in before D/C Order can be placed): [facility] Charges/Coding Visit Charges Inpatient E&M: 50968 Disch Hosp >30min
--- NOTE | 2022-07-15 11:30 | CASEMGMT ---
Patient has not been out of bed so SW spoke with RN to see if she could try and get patient to stand and pivot to the chair. RN tried and patient refused. This ANAID and ANAID Guerrero spoke with patient. ANAID introduced selves and role at [facility]. SW explained to patient that he will be going back to [facility] today. SW explained to patient that he has been in bed a long time so SW needs to know if he will be able to stand to get into a wheelchair and sit up in the wheelchair. Patient said he can do this. SW asked patient if the nurse could get him up to make sure he is strong enough. Patient refused stating he does not like the chair. SW let patient know someone will let him know when a time has been arranged. Plan: D/c back to [facility] under skilled level of care. Meliza AGUDELO
--- NOTE | 2022-07-15 11:46 | PHA.DC.MR ---
Pharmacy Service has performed discharge medication reconciliation for this patient. The patient's discharge medication list was reviewed for discrepancies and discrepancies were resolved. Home Medications aspirin 81 mg tablet,delayed release (Adult Aspirin Regimen) 81 mg PO DAILY heart health 03/17/17 multivitamin (Multiple Vitamins tablet) 1 tab PO QDAY supplement 03/17/17 aluminum-mag hydroxide-simethicone 200 mg-200 mg-20 mg/5 mL oral susp 30 ml PO Q4H PRN Heartburn 04/18/20 ascorbate calcium (vitamin C) 500 mg tablet 500 mg PO DAILY supplement 04/18/20 melatonin 3 mg capsule 5 mg PO HS PRN Insomnia 04/18/20 acetaminophen 325 mg tablet (Tylenol) 650 mg PO Q4H PRN PRN Fever, pain 1-12/09 #0 tabs 04/03/21 albuterol sulfate 90 mcg/actuation aerosol inhaler 2 puff inhalation Q4H PRN shortness of breath or wheezing #8.5 grams 09/19/21 ferrous sulfate 325 mg (65 mg iron) tablet (FeroSul) 325 mg PO DAILY@1200 #0 tabs 10/04/21 sennosides 8.6 mg-docusate sodium 50 mg tablet (Stool Softener-Stimulant Laxative) 2 tab PO BID PRN PRN Constipation #0 tabs 10/04/21 cyanocobalamin (vitamin B-12) 1,000 mcg tablet 1,000 mcg PO DAILY 10/05/21 fluticasone fur. 200 mcg-umeclid 62.5 mcg-vilant 25 mcg inhalat.powder (Trelegy Ellipta) 1 inh inhalation DAILY 10/05/21 guaifenesin 1,200 mg tablet, extended release 12 hr (Mucus Relief ER) 600 mg PO BID 10/05/21 phenytoin sodium extended 100 mg capsule (Dilantin Extended) 100 mg PO TID seizures #90 caps 01/21/22 atorvastatin 20 mg tablet 20 mg PO DAILY 04/29/22 cetirizine 10 mg capsule (Zyrtec) 10 mg PO DAILY PRN 04/29/22 divalproex 125 mg tablet,delayed release (Depakote) 250 mg PO TID 04/29/22 cimetidine 200 mg tablet 400 mg PO QACHS 06/27/22 folic acid 1 mg tablet 1 mg PO DAILY 06/27/22 cholecalciferol (vitamin D3) 50 mcg (2,000 unit) capsule (Vitamin D3) 2,000 mcg PO DAILY Check with primary doctor 07/04/22 amiodarone 200 mg tablet 200 mg PO DAILY #0 tabs 07/15/22 benzonatate 100 mg capsule 100 mg PO Q4H PRN PRN COUGH #0 caps 07/15/22 diltiazem HCl 60 mg capsule,extended release 12 hr 180 mg PO Q12 #0 caps 07/15/22 fluoxetine 40 mg capsule 40 mg PO DAILY #0 caps 07/15/22 furosemide 40 mg tablet 60 mg PO BIDLX #0 tabs 07/15/22 ipratropium bromide 0.02 % solution for inhalation 0.5 mg (2.5 mL) inhalation Q4H.RT PRN sob #0 mL 07/15/22 metoprolol tartrate 50 mg tablet 50 mg PO BID #0 tabs 07/15/22 prednisone 20 mg tablet 40 mg PO BREAKFAST 4 days #0 tabs 07/15/22 warfarin 3 mg tablet (Joeven) See Rx Instructions .Route .COMPLEX #0 tabs 07/15/22 warfarin 4 mg tablet 4 mg PO QMWF blood thinner 30 days #0 tabs 07/15/22
--- NOTE | 2022-07-15 12:24 | CASEMGMT ---
Discharge Planning Discharge orders, med list, covid results, and pickup time sent to Franklyn Huyen via [facility]. Patient will be picked up at 2:30. Patient, his sister Suzette, ANAID and nursing notified. Cleopatra Salazar
--- NOTE | 2022-07-15 12:53 | NURSING ---
Report called to Melissa nurse at [facility]
== END 2022-07-15 15:52 | disposition skilled nursing facility (03) | DRG 189 ==
LOC: PCU 07-07 07:27 → ICU 07-07 10:40 → PCU 07-07 10:40
PROVIDERS: Family Medicine; Internal Medicine; Internal Medicine Critical Care Medicine; Admitting Provider Student in an Organized Health Care Education/Training Program; PCP Family Medicine; Visit Provider Internal Medicine
DX: J96.21 Acute and chronic respiratory failure with hypoxia (principal); I50.33 Acute on chronic diastolic (congestive) heart failure; J18.9 Pneumonia, unspecified organism; J44.1 Chronic obstructive pulmonary disease with (acute) exacerbation; I27.20 Pulmonary hypertension, unspecified; I11.0 Hypertensive heart disease with heart failure; F39 Unspecified mood [affective] disorder; G40.909 Epilepsy, unspecified, not intractable, without status epilepticus; I48.0 Paroxysmal atrial fibrillation; E78.5 Hyperlipidemia, unspecified; G47.33 Obstructive sleep apnea (adult) (pediatric); K21.9 Gastro-esophageal reflux disease without esophagitis; Z79.82 Long term (current) use of aspirin; Z87.891 Personal history of nicotine dependence; R79.1 Abnormal coagulation profile; Z79.51 Long term (current) use of inhaled steroids; Z86.16 Personal history of COVID-19; Z79.01 Long term (current) use of anticoagulants; Z79.899 Other long term (current) drug therapy; Z95.2 Presence of prosthetic heart valve; Z86.718 Personal history of other venous thrombosis and embolism; Z66 Do not resuscitate
CPT/HCPCS: 36415; 71046; 80048; 80053; 80076; 80164; 82140; 83735; 83880; 84443; 84484; 85025; 85027; 85610; 87040; 87426; 87428; 87449; 87633; 93005; 93306; 94002; 94003; 94640; 94660; 94667; 94668; 94762; Q9957; A4216; J0696; J1940; J2405

== ENCOUNTER → 2022-10-20 | Outpatient (CLI) | payer MEDICARE, MEDICAID, SELFPAY ==
[2022-10-20 18:07] LABS: Hematocrit 43.8 % (40-54); Hemoglobin 13.3 g/dL (13.0-16.5); Mean Corp Hgb Conc 30.4 g/dL (32-36); Mean Corpuscular Hgb 32.8 pg (27.0-32.0); Mean Corpuscular Volume 108.1 fL (80-94); Mean Platelet Vol. 12.5 fl (6.2-12.0); Platelet Count 111 K/mm3 (150-450); RBC Distribution Width CV 14.4 % (11.6-14.6); Red Blood Count 4.05 M/mm3 (4.6-6.2); White Blood Count 6.9 K/mm3 (4.4-11.0)
[2022-10-20 18:26] LABS: ALB/GLOB Ratio 0.9 RATIO (0.9-2.4); AST(SGOT) 23 U/L (15-37); Alanine Aminotransfer ALT/SGPT 26 U/L (16-61); Albumin, Serum 3.2 g/dL (3.2-5.0); Alkaline Phosphatase 129 U/L (45-117); Anion Gap 2 (5-15); BUN 40 mg/dL (7-18); BUN/Creat Ratio 21.6 RATIO (10-20); Calcium,Total 8.4 mg/dL (8.5-10.1); Chloride 99 mmol/L (98-107); Creatinine, Serum 1.85 mg/dL (0.70-1.30); EST Glomerular Filtration Rate 40 mL/min (>60); Est Glom Filt Rate - Afr Amer 49 mL/min (>60); Globulin 3.5 g/dL (2.2-4.2); Glucose 139 mg/dL (74-106); Potassium 4.4 mmol/L (3.5-5.1); Protein, Total 6.7 g/dL (6.4-8.2); Sodium Level 143 mmol/L (136-145)
[2022-10-20 18:41] LABS: Phenytoin (Dilantin) Level 19.4 mL (10.0-20.0); Valproic Acid (Depakene) Level 22 ug/mL (50-100)
== END | disposition home or self-care (01) ==
PROVIDERS: PCP Internal Medicine Geriatric Medicine; Referring Provider Psychiatry & Neurology Neurology; Visit Provider Psychiatry & Neurology Neurology
DX: G40.909 Epilepsy, unspecified, not intractable, without status epilepticus (principal)
CPT/HCPCS: 36415; 80053; 80164; 80185; 82140; 85027

== ENCOUNTER → 2023-01-05 | Outpatient (CLI) | payer MEDICARE, MEDICAID, SELFPAY ==
[2023-01-05 15:17] LABS: Absolute Lymphocyte Count 1.26 X10^3/uL (0.83-4.51); Absolute Neutrophil Count 4.6 X10^3/uL (2.0-7.7); Basophil# 0.09 X10^3/uL; Basophil% 1.1 % (0-1); Eosinophil# 1.31 X10^3/uL; Eosinophils% 16.6 % (0-5); Hematocrit 42.9 % (40-54); Hemoglobin 12.6 g/dL (13.0-16.5); Lymphocyte # 1.26 X10^3/ul (0.83-4.51); Lymphocyte % 15.9 % (19-41); Mean Corp Hgb Conc 29.4 g/dL (32-36); Mean Corpuscular Hgb 31.7 pg (27.0-32.0); Mean Corpuscular Volume 107.8 fL (80-94); Mean Platelet Vol. 12.4 fl (6.2-12.0); Monocyte# 0.65 X10^3/uL; Monocyte% 8.2 % (0-10); NRBC Flagged by Analyzer 0 % (0-5); Neutrophil # 4.55 X10^3/uL (2.7-7.7); Neutrophil % 57.6 % (47-70); Platelet Count 128 K/mm3 (150-450); RBC Distribution Width CV 14.6 % (11.6-14.6); RBC Distribution Width SD 58.3 fl (35.1-43.9); Red Blood Count 3.98 M/mm3 (4.6-6.2); White Blood Count 7.9 K/mm3 (4.4-11.0)
[2023-01-05 16:00] LABS: Anion Gap 3 (5-15); BUN 36 mg/dL (7-18); BUN/Creat Ratio 17.8 RATIO (10-20); Calcium,Total 8.2 mg/dL (8.5-10.1); Chloride 97 mmol/L (98-107); Creatinine, Serum 2.02 mg/dL (0.70-1.30); EST Glomerular Filtration Rate 36 mL/min (>60); Est Glom Filt Rate - Afr Amer 44 mL/min (>60); Glucose 115 mg/dL (74-106); Potassium 4.6 mmol/L (3.5-5.1); Sodium Level 142 mmol/L (136-145)
== END | disposition home or self-care (01) ==
LOC: LAB 14:38
PROVIDERS: PCP Internal Medicine Geriatric Medicine; Referring Provider Physician Assistant Medical; Visit Provider Physician Assistant Medical
DX: I48.91 Unspecified atrial fibrillation (principal); J95.811 Postprocedural pneumothorax
CPT/HCPCS: 36415; 80048; 85025